=== PATIENT | male | born 1955 | race Caucasian/White ===

== ENCOUNTER 2016-09-09 13:44 | Inpatient (IN) | payer OTHER ==
[~2016-09-09] VITALS: Ht 180.3 cm; Wt 96.3 kg
[~2016-09-09 13:44] MED LIST: AMLO-110 PO; CALC0.5C2 PO; CHOL2000 PO; CYAN100020 PO; FOLI1TAB7 PO; HYDR-4717 PO; SODI650T8 PO
[2016-09-09 13:48] VITALS: Ht 180.3 cm; Wt 96.3 kg
[2016-09-09] MEDS ORDERED: SODIUM CHLORIDE 0.9% 1000ML 1,000 ML IV STA (13:57)
[2016-09-09] MEDS ORDERED: DEXTROSE 50% 50 ML SYR IV STA (13:57)
[2016-09-09] MEDS ORDERED: CALCIUM GLUCONATE 10% 10 ML VIAL IV STA (13:57)
[2016-09-09] MEDS ORDERED: NovoLIN-R INSULIN PER UNIT CHARGE IV STA (13:57)
--- NOTE | 2016-09-09 14:12 | EMERGENCY ROOM VISIT NOTE ---
History Report prepared by Donell: Jeovanny Muro Under the Supervision of: Dr. Mark Forte D.O. First contact with patient: 13:55 Chief Complaint: ABNORMAL LABS Stated Complaint: HIGH POTTASSIUM History of Present Illness The patient is a 61 year old male who presents to the Emergency Room with complaints of a persistent abnormal lab that occurred prior to arrival today. The patient went in for a cardio test at [facility] and had a blood test done. His creatinine was 19 and his potassium was 7, so the patient was told to go to the ED. He states that his creatinine has been running from 13 to 14 recently. He has been avoiding protein. The patient had a bit of nausea and weakness. He did have the stomach flu last week with vomiting and diarrhea. He denies any chest pain, shortness of breath, or urinary symptoms. His medical problems consist of kidney failure and hypertension. The patient is an ex-smoker. He drinks alcohol occasionally. The patient is trying to avoid dialysis for now. Source of History: patient Onset: Prior to arrival today Position: other (global - abnormal labs) Quality: other (creatinine of 19 and potassium of 7) Timing: other (persistent) Associated Symptoms: + nausea, + weakness, No SOB, No chest pain, No urinary symptoms Note: No other associated symptoms. Review of Systems See HPI for pertinent positives & negatives. A total of 10 systems reviewed and were otherwise negative. Past Medical & Surgical Medical Problems: (1) ESRD (end stage renal disease) (2) Hyperkalemia Surgical Problems: (1) [place] teeth extracted Family History Patient reports no known family medical history. Social History Smoking Status: Former Smoker Alcohol Use: occasionally Drug Use: none Housing Status: lives with significant other Current/Historical Medications Scheduled Amlodipine (Norvasc), 5 MG PO AMHS Calcitriol (Rocaltrol), 0.5 MCG PO QAM Cholecalciferol (Vitamin D3), 2,000 INTER.UNIT PO QAM Cyanocobalamin (Vitamin B12), 1 TAB PO QAM Epoetin Carlos Alberto (Procrit), 10,000 UNITS SC WK Folic Acid (Folvite), 1 TAB PO DAILY Hydralazine Hcl (Apresoline), 100 MG PO TID Sodium Bicarbonate (Sodium Bicarbonate), 1,950 MG PO TID Allergies Coded Allergies: No Known Allergies (Unverified , 09/09/16) Physical Exam Vital Signs Date Time Temp Pulse Resp B/P Pulse Ox O2 Delivery O2 Flow Rate FiO2 09/09/16 15:38 92 14 175/86 97 Room Air 09/09/16 15:06 91 17 185/92 97 Room Air 09/09/16 14:30 82 09/09/16 13:48 36.8 84 17 188/87 93 Room Air Physical Exam GENERAL: Patient is awake, alert, and in no acute distress. Patient is resting comfortably and showing no signs of anxiety EYES: The conjunctivae are clear. The pupils are round and reactive. EARS, NOSE, MOUTH AND THROAT: The nose is without any evidence of any deformity. Mucous membranes are moist tongue is midline NECK: The neck is nontender and supple. RESPIRATORY: Lung sounds were diminished at both bases. No tachypnea or respiratory distress noted. CARDIOVASCULAR: Heart sounds were tachycardic but regular. No definite murmur noted to auscultation. GASTROINTESTINAL: The abdomen is soft. Bowel sounds are present in all quadrants. Abdomen is nontender MUSCULOSKELETAL/EXTREMITIES: There is no evidence of gross deformity full range of motion is noted in the hips and shoulders SKIN: Trace pedal edema noted bilaterally. NEUROLOGIC: Patient is awake alert and oriented x3. Medical Decision & Procedures ER Provider Diagnostic Interpretation: X-ray results as stated below per interpretation by me and the radiologist. CHEST ONE VIEW PORTABLE CLINICAL HISTORY: ABDOMINAL PAIN/GI nausea COMPARISON STUDY: 12/27/2015 FINDINGS: The bones soft tissues and hemidiaphragms are normal. The cardiomediastinal silhouette is normal. The lungs are clear. The pulmonary vasculature is normal. IMPRESSION: Negative chest. Electronically signed by: Aj Ojeda M.D. 09/09/2016 2:19 PM Dictated Date/Time: 09/09/2016 2:18 PM Laboratory Results 09/09/16 14:15 Red Blood Count 3.00, Mean Corpuscular Volume 93.0, Mean Corpuscular Hemoglobin 30.0, Mean Corpuscular Hemoglobin Concent 32.3, Mean Platelet Volume 8.9, Neutrophils (%) (Auto) 64.5, Lymphocytes (%) (Auto) 23.6, Monocytes (%) (Auto) 7.3, Eosinophils (%) (Auto) 4.1, Basophils (%) (Auto) 0.2, Neutrophils # (Auto) 4.27, Lymphocytes # (Auto) 1.56, Monocytes # (Auto) 0.48, Eosinophils # (Auto) 0.27, Basophils # (Auto) 0.01 09/09/16 14:15 Test 09/09/16 14:15 White Blood Count 6.61 K/uL (4.8-10.8) Red Blood Count 3.00 M/uL (4.7-6.1) Hemoglobin 9.0 g/dL (14.0-18.0) Hematocrit 27.9 % (42-52) Mean Corpuscular Volume 93.0 fL (80-100) Mean Corpuscular Hemoglobin 30.0 pg (25-34) Mean Corpuscular Hemoglobin Concent 32.3 g/dl (32-36) Platelet Count 238 K/uL (130-400) Mean Platelet Volume 8.9 fL (7.4-10.4) Neutrophils (%) (Auto) 64.5 % Lymphocytes (%) (Auto) 23.6 % Monocytes (%) (Auto) 7.3 % Eosinophils (%) (Auto) 4.1 % Basophils (%) (Auto) 0.2 % Neutrophils # (Auto) 4.27 K/uL (1.4-6.5) Lymphocytes # (Auto) 1.56 K/uL (1.2-3.4) Monocytes # (Auto) 0.48 K/uL (0.11-0.59) Eosinophils # (Auto) 0.27 K/uL (0-0.5) Basophils # (Auto) 0.01 K/uL (0-0.2) RDW Standard Deviation 56.2 fL (36.4-46.3) RDW Coefficient of Variation 16.7 % (11.5-14.5) Immature Granulocyte % (Auto) 0.3 % Immature Granulocyte # (Auto) 0.02 K/uL (0.00-0.02) Prothrombin Time 10.5 SECONDS (9.0-12.0) Prothromb Time International Ratio 1.0 (0.9-1.1) Activated Partial Thromboplast Time 23.7 SECONDS (21.0-31.0) Partial Thromboplastin Ratio 0.9 Anion Gap 14.0 mmol/L (3-11) Est Creatinine Clear Calc Drug Dose 4.6 ml/min Estimated GFR () 2.5 Estimated GFR (Non- 2.2 BUN/Creatinine Ratio 4.3 (10-20) Calcium Level 9.4 mg/dl (8.5-10.1) Phosphorus Level 7.8 mg/dl (2.5-4.9) Magnesium Level 4.5 mg/dl (1.8-2.4) Total Bilirubin 0.4 mg/dl (0.2-1) Direct Bilirubin 0.2 mg/dl (0-0.2) Aspartate Amino Transf (AST/SGOT) 7 U/L (15-37) Alanine Aminotransferase (ALT/SGPT) 16 U/L (12-78) Alkaline Phosphatase 56 U/L (45-117) Total Creatine Kinase 179 U/L (39-308) Creatine Kinase MB 2.7 ng/ml (0.5-3.6) Creatine Kinase MB Ratio 1.5 (0-3.0) Troponin I < 0.015 ng/ml (0-0.045) Pro-B-Type Natriuretic Peptide 5441 pg/ml (0-900) Total Protein 6.8 gm/dl (6.4-8.2) Albumin 3.9 gm/dl (3.4-5.0) Lipase 318 U/L (73-393) Laboratory results per my review. Medications Administered Medications (Trade) Dose Ordered Sig/Aleksandra Route Start Time Stop Time Status Last Admin Dose Admin Sodium Chloride (Nss 1000ml) 1,000 ml @ 999 mls/hr Q1H1M STAT IV 09/09/16 13:57 09/09/16 14:57 DC 09/09/16 14:44 999 MLS/HR Calcium Gluconate (Calcium Gluconate 10%) 1,000 mg NOW STAT IV 09/09/16 13:57 09/09/16 13:59 DC 09/09/16 14:44 1,000 MG Dextrose (Dextrose 50% 50ML Syringe) 50 ml NOW STAT IV 09/09/16 13:57 09/09/16 13:59 DC 09/09/16 14:45 50 ML Insulin Human Regular (novoLIN-R U-100 PER UNIT) 10 units NOW STAT IV 09/09/16 13:57 09/09/16 13:59 DC 09/09/16 14:47 10 UNITS ECG Indication: other (abnormal labs) Rate (beats per minute): 78 Rhythm: normal sinus Findings: peaked T-waves (noted in anterior leads), no ectopy Change: no significant change (compared to April 14 2016) ED Course 1350: The patient was evaluated in room B3B. A complete history and physical examination were performed. 1357: Ordered Novolin-R U-100 PER UNIT 10 units IV, Dextrose 50% 50ML Syringe 50 ml IV, Calcium Gluconate 10% 1000 mg IV, NSS 1000 ml @ 999 mls/hr IV. 1500: I reevaluated the patient and he is resting comfortably. The patient verbally expressed understanding and agreement of the treatment plan. The patient will be evaluated for further treatment. 1510: I discussed the patient with Lazara Joseph - she will evaluate the patient for further treatment. Medical Decision Differential diagnosis: Etiologies such as metabolic, infection, hypo/hyperglycemia, electrolyte abnormalities, cardiac sources, intracerebral event, toxicologic, neurologic, as well as others were entertained. Nursing notes reviewed. The patient's previous electronic medical records reviewed. The patient is a 61-year-old male who has a history of chronic renal insufficiency who is currently trying to be put on a renal transplant list. He was seen by cardiology for medical clearance and had laboratory studies obtained as well as an EKG. EKG did show signs of hyperkalemia and his laboratory studies revealed significant elevation in his creatinine as well as his potassium. The patient had nausea vomiting and diarrhea last week which was felt to be secondary to the stomach flu. He was likely dehydrated at that time which probably set this acute change in his renal function and motion. I discussed the patient's laboratory and radiographic studies with him. He was treated with IV fluids IV calcium IV insulin and IV dextrose. He was reevaluated multiple times. I discussed his case with the on-call [facility] screw. They've agreed to evaluate the patient in the emergency department for further management and disposition. 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 The patient still refuses to have dialysis. It was explained to him that this could be life saving and that his extreme electrolyte shifts could lead to sudden cardiac . The patient is aware of this. He still does not wish to have dialysis. Consults Time Called: 1504 Consulting Physician: Lazara Joseph Returned Call: 1510 I discussed the patient with Lazara Joseph - she will evaluate the patient for further treatment. Impression Primary Impression: Renal failure Additional Impressions: Hyperkalemia, Abnormal EKG Scribe Attestation The scribe's documentation has been prepared under my direction and personally reviewed by me in its entirety. I confirm that the note above accurately reflects all work, treatment, procedures, and medical decision making performed by me. Departure Information Dispostion Being Evaluated By Hospitalist Referrals [place], [place] DO (PCP) Patient Instructions A Signature Page, My [facility]
--- NOTE | 2016-09-09 14:20 | DIAGNOSTIC IMAGING REPORT ---
CHEST ONE VIEW PORTABLE CLINICAL HISTORY: ABDOMINAL PAIN/GI nausea COMPARISON STUDY: 12/27/2015 FINDINGS: The bones soft tissues and hemidiaphragms are normal. The cardiomediastinal silhouette is normal. The lungs are clear. The pulmonary vasculature is normal. IMPRESSION: Negative chest. Electronically signed by: Aj Ojeda M.D. 09/09/2016 2:19 PM Dictated Date/Time: 09/09/2016 2:18 PM
[2016-09-09 14:25] LABS: BASO % 0.2 %; BASO ABS # 0.01 K/uL (0-0.2); COMPLETE YES; EOS % 4.1 %; HEMATOCRIT 27.9 % (42-52); IG% 0.3 %; LYMPH % 23.6 %; LYMPH ABS # 1.56 K/uL (1.2-3.4); MEAN CORPUSCULAR HGB CONC 32.3 g/dl (32-36); MEAN PLATELET VOLUME 8.9 fL (7.4-10.4); MONO % 7.3 %; NEUT % 64.5 %; PLATELET COUNT 238 K/uL (130-400); WHITE BLOOD COUNT 6.61 K/uL (4.8-10.8)
[2016-09-09 14:38] LABS: PARTIAL THROMBOPLASTIN RATIO 0.9; PROTHROMBIN TIME (PATIENT) 10.5 SECONDS (9.0-12.0)
[2016-09-09] MEDS ORDERED: EPGI2M INJ (14:44)
[2016-09-09 15:05] LABS: ALKALINE PHOSPHATASE 56 U/L (45-117); ALT/SGPT 16 U/L (12-78); AST/SGOT 7 U/L (15-37); BLOOD UREA NITROGEN 87 mg/dl (7-18); BUN/CREATININE RATIO 4.3 (10-20); CALCIUM 9.4 mg/dl (8.5-10.1); CARBON DIOXIDE 24 mmol/L (21-32); CHLORIDE 103 mmol/L (98-107); CKMB/CK RATIO 1.5 (0-3.0); GLUCOSE 109 mg/dl (70-99); MAGNESIUM 4.5 mg/dl (1.8-2.4); PHOSPHORUS 7.8 mg/dl (2.5-4.9); SODIUM 141 mmol/L (136-145)
[2016-09-09 15:07] LABS: POTASSIUM 6.1 mmol/L (3.5-5.1)
[2016-09-09] MEDS ORDERED: ONDANSETRON INJ 2 MG/ML 2 ML VIAL IV PRN (16:00)
[2016-09-09] MEDS ORDERED: ACETAMINOPHEN 325 MG TAB PO PRN (16:00)
[2016-09-09] MEDS ORDERED: [UNRECOGNIZED DRUG - CODE] PO (16:05)
[2016-09-09] MEDS ORDERED: CRG3125 PO (16:05)
[2016-09-09] MEDS ORDERED: CALC500C3 PO (16:05)
[2016-09-09] MEDS ORDERED: MAGN1TAB41 PO (16:05)
[2016-09-09] MEDS ORDERED: [UNRECOGNIZED DRUG - CODE] PO (16:05)
[2016-09-09] MEDS ORDERED: SEVE1TAB PO (16:05)
[2016-09-09] MEDS ORDERED: SODIUM POLYST. SULF SUSP 15G/60ML PO ONE (16:15)
--- NOTE | 2016-09-09 16:43 | History and Physical ---
History & Physical Date & Time of Service: Sep 09, 2016 at 16:13 Chief Complaint: High Pottassium Primary Care Physician: No Doctor, Assigned History of Present Illness Source: patient, clinic records, hospital records This is a 61 year old male with CKD stage 5 not on dialysis, anemia of renal failure, HTN, and other problems listed below who was sent to the ED from Dr. Jaime's office for hyperkalemia and worsening creatinine. Pt follows with Dr. Angeles for CKD 5 and has declined starting dialysis so far. Pt was seen today by Dr. Jaime for preop clearance for kidney transplant and was found to have peaked T waves on EKG, then had labs done showing potassium of 7.0 and creatinine 19.5 (up from 12-14). He was sent to ER where EKG also showed peaked T waves. He was treated with calcium gluconate, insulin and dextrose, and 1 liter NSS. Patient states he was ill last week with stomach flu (vomiting and diarrhea) which his also had. GI symptoms resolved but states he does not eat much. He is still producing urine. He c/o insomnia the past 2 nights. He denies weakness, fatigue, cramping, fevers, chills, chest pain, palpitations, SOB, cough, URI symptoms, dysuria, frequency, change in urine color, swelling, weight gain. He has been compliant with diet and meds but due for afternoon hydralazine. 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 Past Medical/Surgical History Medical Problems: (1) Anemia in CKD (chronic kidney disease) Status: Chronic (2) CKD (chronic kidney disease) stage 5, GFR less than 15 ml/min Status: Chronic (3) HTN (hypertension) Status: Chronic Surgical Problems: (1) H/O colonoscopy Status: Chronic (2) History of dental surgery Status: Chronic (3) History of esophagogastroduodenoscopy (EGD) Status: Chronic Family History Diabetes mellitus FATHER FH: CHF (congestive heart failure) FATHER Hypertension FATHER Social History Smoking Status: Former Smoker (quit 2.5 years ago) Alcohol Use: 2 glasses of wine per night Drug Use: none Marital Status: Housing status: lives with significant other Occupational Status: employed (secondary 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) Multi-Drug Resistant Organisms History of MDRO: No Allergies Coded Allergies: No Known Allergies (Unverified , 09/09/16) Home Medications Scheduled Amlodipine (Norvasc), 5 MG PO BID Borage (Borago Officinalis) (Borage 1000), 1,000 MG PO DAILY Calcitriol (Rocaltrol), 0.5 MCG PO QAM Calcium Carbonate (Tums), 1,000 MG PO HS Carvedilol (Carvedilol), 1 TAB PO BIDM Cholecalciferol (Vitamin D3), 2,000 INTER.UNIT PO QAM Cyanocobalamin (Vitamin B12), 250 MCG PO QAM Epoetin Carlos Alberto (Procrit), 10,000 UNITS SC WK Eszopiclone (Lunesta), 1 MG PO HS Folic Acid (Folvite), 1 TAB PO DAILY Hydralazine Hcl (Apresoline), 100 MG PO TID Polysaccharide Iron Complex (Ferric X-150), 150 MG PO BID Sevelamer Hydroch (Renagel), 2,400 MG PO TIDM Sodium Bicarbonate (Sodium Bicarbonate), 1,950 MG PO TID Sodium Polystyrene Sulfonate (Kayexalate Susp-Substitute), 15 GM PO DAILY Review of Systems Constitutional: No chills, No fatigue, No fever, No weakness Eyes: No worsening of vision ENT: No nasal symptoms Respiratory: No cough, No shortness of breath Cardiovascular: No chest pain, No edema, No palpitations Abdomen: + diarrhea (resolved), + nausea (resolved), + problem reported, + vomiting (resolved), No GI bleeding Genitourinary - Male: + problem reported (producing urine normally ), No dysuria, No hematuria Psychiatric: + insomnia, No anxiety Hematologic / Lymphatic: No abnormal bleeding/bruising Physical Exam Vital Signs Date Time Temp Pulse Resp B/P Pulse Ox O2 Delivery O2 Flow Rate FiO2 09/09/16 15:38 92 14 175/86 97 Room Air 09/09/16 15:06 91 17 185/92 97 Room Air 09/09/16 14:30 82 09/09/16 13:48 36.8 84 17 188/87 93 Room Air General Appearance: WD/WN, no apparent distress, + pertinent finding (alert cooperative 61 year old male, at bedside) Head: normocephalic, atraumatic Eyes: normal inspection, PERRL, EOMI, sclerae normal ENT: normal ENT inspection, hearing grossly normal, pharynx normal Neck: supple, trachea midline Respiratory/Chest: lungs clear, normal breath sounds, no respiratory distress, no accessory muscle use Cardiovascular: regular rate, rhythm, no murmur Abdomen/GI: normal bowel sounds, non tender, soft Extremities/Musculoskelatal: normal inspection, no calf tenderness, no pedal edema Neurologic/Psych: alert, normal mood/affect, oriented x 3 Skin: normal color, warm/dry Diagnostics Laboratory Results Results Past 24 Hours Test 09/09/16 14:15 Range/Units White Blood Count 6.61 4.8-10.8 K/uL Red Blood Count 3.00 4.7-6.1 M/uL Hemoglobin 9.0 14.0-18.0 g/dL Hematocrit 27.9 42-52 % Mean Corpuscular Volume 93.0 80-100 fL Mean Corpuscular Hemoglobin 30.0 25-34 pg Mean Corpuscular Hemoglobin Concent 32.3 32-36 g/dl Platelet Count 238 130-400 K/uL Mean Platelet Volume 8.9 7.4-10.4 fL Neutrophils (%) (Auto) 64.5 % Lymphocytes (%) (Auto) 23.6 % Monocytes (%) (Auto) 7.3 % Eosinophils (%) (Auto) 4.1 % Basophils (%) (Auto) 0.2 % Neutrophils # (Auto) 4.27 1.4-6.5 K/uL Lymphocytes # (Auto) 1.56 1.2-3.4 K/uL Monocytes # (Auto) 0.48 0.11-0.59 K/uL Eosinophils # (Auto) 0.27 0-0.5 K/uL Basophils # (Auto) 0.01 0-0.2 K/uL RDW Standard Deviation 56.2 36.4-46.3 fL RDW Coefficient of Variation 16.7 11.5-14.5 % Immature Granulocyte % (Auto) 0.3 % Immature Granulocyte # (Auto) 0.02 0.00-0.02 K/uL Prothrombin Time 10.5 9.0-12.0 SECONDS Prothromb Time International Ratio 1.0 0.9-1.1 Activated Partial Thromboplast Time 23.7 21.0-31.0 SECONDS Partial Thromboplastin Ratio 0.9 Sodium Level 141 136-145 mmol/L Potassium Level 6.1 3.5-5.1 mmol/L Chloride Level 103 98-107 mmol/L Carbon Dioxide Level 24 21-32 mmol/L Anion Gap 14.0 3-11 mmol/L Blood Urea Nitrogen 87 7-18 mg/dl Creatinine 20.00 0.60-1.40 mg/dl Est Creatinine Clear Calc Drug Dose 4.6 ml/min Estimated GFR () 2.5 Estimated GFR (Non- 2.2 BUN/Creatinine Ratio 4.3 10-20 Random Glucose 109 70-99 mg/dl Calcium Level 9.4 8.5-10.1 mg/dl Phosphorus Level 7.8 2.5-4.9 mg/dl Magnesium Level 4.5 1.8-2.4 mg/dl Total Bilirubin 0.4 0.2-1 mg/dl Direct Bilirubin 0.2 0-0.2 mg/dl Aspartate Amino Transf (AST/SGOT) 7 15-37 U/L Alanine Aminotransferase (ALT/SGPT) 16 12-78 U/L Alkaline Phosphatase 56 45-117 U/L Total Creatine Kinase 179 39-308 U/L Creatine Kinase MB 2.7 0.5-3.6 ng/ml Creatine Kinase MB Ratio 1.5 0-3.0 Troponin I < 0.015 0-0.045 ng/ml Pro-B-Type Natriuretic Peptide 5441 0-900 pg/ml Total Protein 6.8 6.4-8.2 gm/dl Albumin 3.9 3.4-5.0 gm/dl Lipase 318 73-393 U/L Diagnostic Radiology CHEST ONE VIEW PORTABLE CLINICAL HISTORY: ABDOMINAL PAIN/GI nausea COMPARISON STUDY: 12/27/2015 FINDINGS: The bones soft tissues and hemidiaphragms are normal. The cardiomediastinal silhouette is normal. The lungs are clear. The pulmonary vasculature is normal. IMPRESSION: Negative chest. EKG NSR< 78 bpm, peaked T waves, no ectopy Impression Assessment and Plan HYPERKALEMIA Admit to telemetry K ws 7.0 as outpatient today -> 6.1 in ER Has peaked T waves on EKG Treated with calcium gluconate and insulin with dextrose Will give Kayexalate 15 gm PO now Recheck PRP, mag, phos q4h Nephrology consulted; discussed w/ Dr. Angeles; appreciate input CKD STAGE 5 With worsening renal function- Cr 20; was previously 12-14 Volume loss from recent gastroenteritis may have contributed- received 1 liter bolus in ER Still producing urine Patient continues to decline dialysis Nephrology on board HYPERTENSION BP elevated in ER Give home dose of hydralazine (was due for it at 3 pm) Continue amlodipine, carvedilol, hydralazine Monitor BP ANEMIA OF CHRONIC RENAL DISEASE Hg is stable at 9.0 (baseline 7-8) Receives Procrit as outpatient Monitor H/H DVT PROPHYLAXIS SCD's DISPOSITION Admitting to telemetry Patient seen in collaboration with Dr. Tamez. Please see his addendum. VTE Prophylaxis VTE Risk Assessment Done? Y/N: Yes Risk Level: Moderate
--- NOTE | 2016-09-09 17:29 | NEPHROLOGY CONSULTATION ---
DATE OF CONSULTATION: 09/09/2016 [facility]END[facility] OF RECORD: [facility]. REASON FOR CONSULTATION: CKD stage V, elevated potassium. HISTORY OF PRESENT ILLNESS: This is a 61-year-old male with CKD stage V with a GFR in the 3-4 range, who does not want to start dialysis at this time. The patient is interested in peritoneal dialysis when he is agreeable to start dialysis. The patient states that he was feeling well and wants to keep his job and that he is scared of losing his job if he starts dialysis and it is hard for a man of his age to get a job. 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 He states that he was having URI symptoms with nausea, vomiting and diarrhea last week with decreased appetite and he went to be evaluated for transplant cardiac clearance and found to have peaked T waves with potassium level of 7, was instructed to go to the emergency room. In the ER, patient's potassium level was elevated in the 6 range. The patient still chooses not to do dialysis at this time. The patient has been on Procrit and hemoglobin levels are trending up and he has been getting injections. The patient's main concerns are when he starts dialysis, losing his job and being able to afford his medical expenses on Medicare insurance alone without a job to pay for his expenses. PAST MEDICAL HISTORY: Skin cancer, hypertension, CKD stage V, inguinal hernia. PAST SURGICAL HISTORY: The patient denies. SOCIAL HISTORY: The patient is . Quit smoking in 2013. Occasional alcohol. No drugs. Lives at home with . FAMILY HISTORY: Significant for father with diabetes and hypertension. REVIEW OF SYSTEMS: Positive fatigue. No more nausea or vomiting. Appetite temporarily worse with a virus, but is getting better. No diarrhea or constipation. No chest pain or shortness of breath. No headaches or blurry vision. No dysphagia. Does have significant pruritus. all other review of systems otherwise negative. CURRENT MEDICATIONS: Calcitriol 0.5 mcg daily, vitamin D 2000 units a day. Vitamin B12 250 mcg a day, folic acid 1 tab daily, magnesium 400 mg daily, Norvasc 5 mg p.o. b.i.d., Tums 1 gram at night, hydralazine 100 mg p.o. t.i.d., sodium bicarbonate 1950 mg p.o. t.i.d., Coreg 3.125 mg p.o. b.i.d., Renagel 2400 mg p.o. t.i.d. with meals, Kayexalate 15 grams x1, did get insulin D50 and calcium gluconate as well as 1 liter fluid bolus. PHYSICAL EXAMINATION: VITAL SIGNS: Temperature 36.8, pulse 92, respiratory rate 14, blood pressure 175/86, satting 97% on room air. GENERAL: Awake, alert, oriented x3. EYES: No scleral icterus. ENT: Moist mucous membranes. NECK: Supple. PULMONARY: Decreased breath sounds at the bases. CARDIAC: Regular rate and rhythm. ABDOMEN: Bowel sounds positive, soft, nontender. EXTREMITIES: +1 edema. NEUROLOGICALLY: Nonfocal. DERM: No rash or ulcers noted. LABORATORY DATA: White count 6, H\T\H 9 and 27.9, platelet count is 238. Sodium level is 141, potassium is 6.1, chloride is 103, bicarb is 24, BUN is 87, creatinine is 20, glucose is 109, calcium is 9.4, phosphorus 7.8, magnesium level is 4.5. AST 7, ALT 16. Troponins negative. ProBNP 5441, albumin is 3.9, lipase is 318. INR is 1. Chest x-ray shows normal chest. IMPRESSION: 1. Chronic kidney disease stage V. I spoke to patient multiple times as an outpatient as well as again today in the Emergency Room about indications to start dialysis and I feel that it is appropriate to start dialysis at this time to help improve the potassium, help improve his itching and control his phosphorus, help clear his uremic toxins. The patient states he is not ready to do this at this time and is interested in peritoneal dialysis when he does get symptomatic. Appears to have good insight into his medical decision making, but once again I am concerned that he may never make it to dialysis and will possibly at home in his sleep secondary to electrolyte abnormalities. 2. Anemia of renal failure. The patient is on Procrit as an outpatient and will continue to take injections as an outpatient. 3. Hyperkalemia. Unable to do dialysis to help remove the potassium. Currently giving calcium, insulin and D50. Also giving Kayexalate and hopefully potassium levels improve by the morning. 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 4. Hypermagnesemia. Magnesium level is 4.5 and we will stop patient's magnesium supplementation. 5. Renal osteodystrophy. We will continue patient's calcitriol and phosphate binders. 6. Pruritus. Unfortunately, trying to control his phosphorus is difficult without dialysis and I feel the best way to control his itching is through the use of phosphate binders and dialysis. I appreciate consultation. GENET
[2016-09-09] MEDS ORDERED: SEVELAMER HYDROCH 800 MG TAB PO SCH (18:00)
[2016-09-09] MEDS ORDERED: CARVEDILOL 3.125 MG TAB PO SCH (18:00)
[2016-09-09] MEDS ORDERED: CLONIDINE HCL 0.1 MG TAB PO PRN (18:30)
[2016-09-09 18:38] VITALS: TEMP 36.8; O2SAT 99
[2016-09-09 18:46] LABS: CALCIUM 9.2 mg/dl (8.5-10.1); MAGNESIUM 4.4 mg/dl (1.8-2.4); PHOSPHORUS 7.2 mg/dl (2.5-4.9); POTASSIUM 5.9 mmol/L (3.5-5.1)
[2016-09-09] MEDS ORDERED: SODIUM POLYST. SULF SUSP 15G/60ML PO STA (20:13)
[2016-09-09] MEDS ORDERED: DEXTROSE 50% 50 ML SYR IV ONE (20:15)
[2016-09-09] MEDS ORDERED: INSULIN HUMAN REGULAR IV ONE (20:15)
--- NOTE | 2016-09-09 20:27 | Progress Note ---
Progress Note attending addendum patient seen and examined at bedside strongly requests to go home as soon as possible, tonight if possible denies any symptoms discussed at length with patient the importance to lower his potassium, he verbalized understanding VS noted and reviewed repeat K 5.[address] Angeles next K draw at 12MN, if <6, patient may be discharged on Kayexalate 15mg daily, low potassium diet and repeat PRP on Tuesday discussed again with patient, he is comfortable with plan of care Darrel Tamez MD
[2016-09-09] MEDS ORDERED: INSULIN HUMAN REGULAR PER UNIT 10 UNITS in SYRINGE 9.9 ML IV SCH (20:30)
[2016-09-09] MEDS ORDERED: DEXTROSE 50% 50 ML SYR IV SCH (20:30)
[2016-09-09] MEDS ORDERED: AMLODIPINE BESYLATE 5 MG TAB PO SCH (21:00)
[2016-09-09] MEDS ORDERED: SODIUM BICARBONATE 650 MG TAB PO SCH (21:00)
[2016-09-09] MEDS ORDERED: CALCIUM CARBONATE 500 MG CHEWABLE PO SCH (21:00)
[2016-09-09] MEDS ORDERED: IRON COMPLEX POLYSACCHARIDE W/VIT C 150 MG CAP PO SCH (21:00)
[2016-09-09 22:00] VITALS: BP 163/78; PULSE 91
[2016-09-09 23:31] VITALS: PULSE 90
[2016-09-10 00:43] LABS: BUN/CREATININE RATIO 4.7 (10-20); CALCIUM 8.9 mg/dl (8.5-10.1); MAGNESIUM 4.4 mg/dl (1.8-2.4); PHOSPHORUS 7.4 mg/dl (2.5-4.9); POTASSIUM 5.4 mmol/L (3.5-5.1)
[2016-09-10 01:00] VITALS: BP 194/93
--- NOTE | 2016-09-10 01:19 | Progress Note ---
Subjective Date of Service: Sep 10, 2016. Subjective Pt evaluation today including: conversation w/ patient, conversation w/ family , physical exam, lab review, review of studies, conversation w/ sap ppm consultant, review of inpatient medication list Saw/examined the patient in room C1 in the ER - he is doing well, very eager to get out of the hospital; denies any significant symptoms; states his blood pressure is running high because he is frustrated about being in the hospital. Problem List Medical Problems: (1) Abnormal EKG Status: Acute (2) Anemia Status: Acute (3) ARF (acute renal failure) Status: Acute (4) Pancreatitis Status: Acute (5) Renal failure Status: Acute (6) Renal failure Status: Acute (7) Upper GI bleed Status: Acute Review of Systems Constitutional: No chills, No fever Respiratory: No cough, No shortness of breath, No sputum Cardiac: No chest pain Abdomen: No constipation, No diarrhea, No nausea, No pain, No vomiting Male : No dysuria, No urinary frequency Heme: No abnormal bleeding/bruising Medications Current Inpatient Medications Medications (Trade) Dose Ordered Sig/Aleksandra Route Start Time Stop Time Status Last Admin Dose Admin Acetaminophen (Tylenol Tab) 650 mg Q4H PRN PO 09/09/16 16:00 10/09/16 15:59 Ondansetron HCl (Zofran Inj) 4 mg Q6H PRN IV 09/09/16 16:00 10/09/16 15:59 Amlodipine Besylate (Norvasc Tab) 5 mg BID PO 09/09/16 21:00 10/09/16 20:59 09/09/16 20:49 5 MG Calcium Carbonate (Tums Chew Tab) 1,000 mg HS PO 09/09/16 21:00 10/09/16 20:59 09/09/16 20:11 1,000 MG Carvedilol (Coreg Tab) 3.125 mg BIDM PO 09/09/16 18:00 10/09/16 17:59 09/09/16 20:10 3.125 MG Hydralazine HCl (Apresoline Tab) 100 mg TID PO 09/09/16 21:00 10/09/16 20:59 09/09/16 20:10 100 MG Sevelamer HCl (Renagel Tab) 2,400 mg TIDM PO 09/09/16 18:00 10/09/16 17:59 09/09/16 20:09 2,400 MG Sodium Bicarbonate (Sodium Bicarbonate Tab) 1,950 mg TID PO 09/09/16 21:00 10/09/16 20:59 09/09/16 20:50 1,950 MG Calcitriol (Rocaltrol Cap) 0.5 mcg QAM PO 09/10/16 09:00 10/10/16 08:59 Cholecalciferol (Vitamin D Tab) 2,000 inter.unit QAM PO 09/10/16 09:00 10/10/16 08:59 Cyanocobalamin (Vitamin B-12 Tab) 250 mcg QAM PO 09/10/16 09:00 10/10/16 08:59 Folic Acid (Folvite Tab) 1 mg DAILY PO 09/10/16 09:00 10/10/16 08:59 09/09/16 20:11 1 MG Polysaccharide Iron Complex (Niferex-150 W/ Vit C Cap) 150 mg BID PO 09/09/16 21:00 10/09/16 20:59 09/09/16 20:11 150 MG Clonidine HCl (Catapres Tab) 0.1 mg Q6 PRN PO 09/09/16 18:30 10/09/16 18:29 09/10/16 00:54 0.1 MG Objective Vital Signs Date Time Temp Pulse Resp B/P Pulse Ox O2 Delivery O2 Flow Rate FiO2 09/10/16 01:00 194/93 09/09/16 23:31 90 09/09/16 22:00 91 20 163/78 09/09/16 20:33 91 09/09/16 18:38 36.8 91 17 181/68 99 09/09/16 18:24 17 181/68 99 Room Air 09/09/16 17:41 91 17 166/74 97 Room Air 09/09/16 16:29 85 12 97 09/09/16 16:28 200/88 09/09/16 16:24 85 13 98 09/09/16 16:19 88 17 97 09/09/16 16:14 88 19 94 09/09/16 16:09 88 16 98 09/09/16 16:04 86 17 96 09/09/16 15:59 87 19 94 09/09/16 15:58 177/96 09/09/16 15:54 89 20 97 09/09/16 15:49 85 12 96 09/09/16 15:44 86 17 97 09/09/16 15:39 87 15 09/09/16 15:38 92 14 175/86 97 Room Air 09/09/16 15:34 93 19 09/09/16 15:29 92 14 175/86 09/09/16 15:24 88 18 09/09/16 15:19 87 16 09/09/16 15:14 86 10 93 09/09/16 15:09 85 5 93 09/09/16 15:06 91 17 185/92 97 Room Air 09/09/16 15:04 84 15 94 09/09/16 15:02 185/92 09/09/16 14:59 77 15 09/09/16 14:54 81 14 09/09/16 14:49 81 20 09/09/16 14:44 78 6 09/09/16 14:39 79 13 09/09/16 14:34 83 20 09/09/16 14:30 82 09/09/16 14:29 80 7 09/09/16 13:48 36.8 84 17 188/87 93 Room Air Physical Exam General Appearance: no apparent distress Eyes: normal inspection ENT: hearing grossly normal Respiratory/Chest: lungs clear, normal breath sounds, no respiratory distress, no accessory muscle use Cardiovascular: regular rate, rhythm, no edema, no murmur Abdomen: normal bowel sounds, non tender, soft Extremities: normal inspection, no pedal edema Neurologic/Psychiatric: no motor/sensory deficits, alert, normal mood/affect Skin: normal color Lymphatic: no adenopathy Laboratory Results Last 24 Hours Test 09/09/16 14:15 09/09/16 17:49 09/09/16 20:56 09/09/16 23:58 White Blood Count 6.61 K/uL Red Blood Count 3.00 M/uL Hemoglobin 9.0 g/dL Hematocrit 27.9 % Mean Corpuscular Volume 93.0 fL Mean Corpuscular Hemoglobin 30.0 pg Mean Corpuscular Hemoglobin Concent 32.3 g/dl Platelet Count 238 K/uL Mean Platelet Volume 8.9 fL Neutrophils (%) (Auto) 64.5 % Lymphocytes (%) (Auto) 23.6 % Monocytes (%) (Auto) 7.3 % Eosinophils (%) (Auto) 4.1 % Basophils (%) (Auto) 0.2 % Neutrophils # (Auto) 4.27 K/uL Lymphocytes # (Auto) 1.56 K/uL Monocytes # (Auto) 0.48 K/uL Eosinophils # (Auto) 0.27 K/uL Basophils # (Auto) 0.01 K/uL RDW Standard Deviation 56.2 fL RDW Coefficient of Variation 16.7 % Immature Granulocyte % (Auto) 0.3 % Immature Granulocyte # (Auto) 0.02 K/uL Prothrombin Time 10.5 SECONDS Prothromb Time International Ratio 1.0 Activated Partial Thromboplast Time 23.7 SECONDS Partial Thromboplastin Ratio 0.9 Sodium Level 141 mmol/L 143 mmol/L 142 mmol/L Potassium Level 6.1 mmol/L 5.9 mmol/L 5.4 mmol/L Chloride Level 103 mmol/L 103 mmol/L 103 mmol/L Carbon Dioxide Level 24 mmol/L 21 mmol/L 24 mmol/L Anion Gap 14.0 mmol/L 19.0 mmol/L 15.0 mmol/L Blood Urea Nitrogen 87 mg/dl 100 mg/dl 94 mg/dl Creatinine 20.00 mg/dl 20.00 mg/dl 20.00 mg/dl Est Creatinine Clear Calc Drug Dose 4.6 ml/min 4.6 ml/min 4.6 ml/min Estimated GFR () 2.5 2.5 2.5 Estimated GFR (Non- 2.2 2.2 2.2 BUN/Creatinine Ratio 4.3 5.0 4.7 Random Glucose 109 mg/dl 71 mg/dl 111 mg/dl Calcium Level 9.4 mg/dl 9.2 mg/dl 8.9 mg/dl Phosphorus Level 7.8 mg/dl 7.2 mg/dl 7.4 mg/dl Magnesium Level 4.5 mg/dl 4.4 mg/dl 4.4 mg/dl Total Bilirubin 0.4 mg/dl Direct Bilirubin 0.2 mg/dl Aspartate Amino Transf (AST/SGOT) 7 U/L Alanine Aminotransferase (ALT/SGPT) 16 U/L Alkaline Phosphatase 56 U/L Total Creatine Kinase 179 U/L Creatine Kinase MB 2.7 ng/ml Creatine Kinase MB Ratio 1.5 Troponin I < 0.015 ng/ml Pro-B-Type Natriuretic Peptide 5441 pg/ml Total Protein 6.8 gm/dl Albumin 3.9 gm/dl Lipase 318 U/L Bedside Glucose 110 mg/dl Assessment and Plan This is a 61 year old male with CKD stage 5 not on dialysis, anemia of renal failure, HTN here secondary to electrolyte abnormalities Hyperkalemia Hypermagnesemia -->patient presented after being sent over by cardiology due to peaked T waves -->potassium was > 6.0 -->Kayexalate, insulin/D5 given x 2 - potassium is now 5.4 -->Magnesium remains > 4 - patient states he was taking magnesium due to insomnia -->explained to the patient the risks of being discharged with elevated magnesium and potassium levels -->he realizes the risks, and is willing to follow closely with doctors as an outpatient -->insistent on going home today - will d/c with Kayexalate 15 mg daily, repeat blood work on 09/13/16 Hypertension -->difficult to control blood pressure -->blood pressures (SBP) ranging from 160s-190s -->patient should continue home medications, check BP twice daily and take hydralazine PRN for SBPs > 180 -->follow-up with Dr. Angeles as outpatient
[2016-09-10] MEDS ORDERED: ESZO1TAB6 PO ×2 (01:26→01:37)
[2016-09-10] MEDS ORDERED: [UNRECOGNIZED DRUG - CODE] PO (01:26)
--- NOTE | 2016-09-10 01:31 | Discharge Instructions ---
Discharge Instructions Admission Reason for Admission: Hyperkalemia Discharge Discharge Diagnosis / Problem: Hyperkalemia/Hypermagnesemia Discharge Goals Goal(s): Diagnostic testing, Therapeutic intervention Activity Recommendations Activity Limitations: resume your previous activity . Instructions / Follow-Up Instructions / Follow-Up Please follow-up with Dr. Angeles, nephrology regarding electrolyte (potassium/ magnesium) abnormalities * Please have blood work drawn on Tuesday, September 13 to recheck potassium/ magnesium levels * Please take Kayexalate daily until recheck of blood work * Stop taking magnesium supplementation Current Hospital Diet Patient's current hospital diet: Renal Diet Discharge Diet Recommended Diet: Low Potassium Diet (2g K) Pending Studies Studies pending at discharge: no Medical Emergencies . Who to Call and When: Medical Emergencies: If at any time you feel your situation is an emergency, please call 911 immediately. . Non-Emergent Contact Non-Emergency issues call your: Primary Care Provider, Surgical Instrument Mechanic . . "Provider Documentation" section prepared by Sp Carney. VTE Core Measure Inpt VTE Proph given/why not?: SCD's
--- NOTE | 2016-09-10 01:38 | Discharge Summary ---
Discharge Summary Admission Date: Sep 09, 2016 at 15:53 Discharge Date: Sep 10, 2016 Discharge Disposition: Home Principal Diagnosis: CKD stage V Hyperkalemia/Hypermagnesemia Medication Reconciliation New Medications: Eszopiclone (Lunesta) 1 Mg Tab 1 MG PO HS for 10 Days, #10 TAB Sodium Polystyrene Sulfonate (Kayexalate Susp-Substitute) 15 Gm/60 Ml Susp 15 GM PO DAILY for 10 Days, #600 ML Continued Medications: Amlodipine (Norvasc) 5 Mg Tab 5 MG PO BID, TAB Borage (Borago Officinalis) (Borage 1000) 1,000 Mg Cap 1000 MG PO DAILY Calcitriol (Rocaltrol) 0.5 Mcg Cap 0.5 MCG PO QAM Calcium Carbonate (Tums) 500 Mg Chew 1000 MG PO HS Carvedilol (Carvedilol) 3.125 Mg Tab 1 TAB PO BIDM Cholecalciferol (Vitamin D3) 2,000 Unit Cap 2000 INTER.UNIT PO QAM, CAP Cyanocobalamin (Vitamin B12) 1,000 Mcg Tab 250 MCG PO QAM Epoetin Carlos Alberto (Procrit) 2,000 Units Inj 10352 UNITS SC WK Folic Acid (Folvite) Unknown Strength Tab 1 TAB PO DAILY, TAB Hydralazine Hcl (Apresoline) 50 Mg Tab 100 MG PO TID, TAB Polysaccharide Iron Complex (Ferric X-150) 150 Mg Cap 150 MG PO BID Sevelamer Hydroch (Renagel) 800 Mg Tab 2400 MG PO TIDM, TAB Sodium Bicarbonate (Sodium Bicarbonate) 650 Mg Tab 1950 MG PO TID Discontinued Medications: Magnesium Oxide (Magnesium) 400 Mg Tab 400 MG PO DAILY Admission Information HPI (per Admitting provider): This is a 61 year old male with CKD stage 5 not on dialysis, anemia of renal failure, HTN, and other problems listed below who was sent to the ED from Dr. Jaime's office for hyperkalemia and worsening creatinine. Pt follows with Dr. Angeles for CKD 5 and has declined starting dialysis so far. Pt was seen today by Dr. Jaime for preop clearance for kidney transplant and was found to have peaked T waves on EKG, then had labs done showing potassium of 7.0 and creatinine 19.5 (up from 12-14). He was sent to ER where EKG also showed peaked T waves. He was treated with calcium gluconate, insulin and dextrose, and 1 liter NSS. Patient states he was ill last week with stomach flu (vomiting and diarrhea) which his also had. GI symptoms resolved but states he does not eat much. He is still producing urine. He c/o insomnia the past 2 nights. He denies weakness, fatigue, cramping, fevers, chills, chest pain, palpitations, SOB, cough, URI symptoms, dysuria, frequency, change in urine color, swelling, weight gain. He has been compliant with diet and meds but due for afternoon hydralazine. 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 Physical Exam (per Admitting): General Appearance: WD/WN, no apparent distress, + pertinent finding (alert cooperative 61 year old male, at bedside) Head: normocephalic, atraumatic Eyes: normal inspection, PERRL, EOMI, sclerae normal ENT: normal ENT inspection, hearing grossly normal, pharynx normal Neck: supple, trachea midline Respiratory/Chest: lungs clear, normal breath sounds, no respiratory distress, no accessory muscle use Cardiovascular: regular rate, rhythm, no murmur Abdomen/GI: normal bowel sounds, non tender, soft Extremities/Musculoskelatal: normal inspection, no calf tenderness, no pedal edema Neurologic/Psych: alert, normal mood/affect, oriented x 3 Skin: normal color, warm/dry Hospital Course This is a 61 year old male with CKD stage 5 not on dialysis, anemia of renal failure, HTN here secondary to electrolyte abnormalities Hyperkalemia Hypermagnesemia -->patient presented after being sent over by cardiology due to peaked T waves -->potassium was > 6.0 -->Kayexalate, insulin/D5 given x 2 - potassium is now 5.4 -->Magnesium remains > 4 - patient states he was taking magnesium due to insomnia -->explained to the patient the risks of being discharged with elevated magnesium and potassium levels -->he realizes the risks, and is willing to follow closely with doctors as an outpatient -->insistent on going home today - will d/c with Kayexalate 15 mg daily, repeat blood work on 09/13/16 Hypertension -->difficult to control blood pressure -->blood pressures (SBP) ranging from 160s-190s -->patient should continue home medications, check BP twice daily and take hydralazine PRN for SBPs > 180 -->follow-up with Dr. Angeles as outpatient Total time spent on discharge = 45 minutes This includes examination of the patient, discharge planning, medication reconciliation, and communication with other providers. Discharge Instructions Please follow-up with Dr. Angeles, nephrology regarding electrolyte (potassium/ magnesium) abnormalities * Please have blood work drawn on September 13 to recheck potassium/ magnesium levels * Please take Kayexalate daily until recheck of blood work * Stop taking magnesium supplementation
[2016-09-10] MEDS ORDERED: ESZOPICLONE 1 MG TAB PO PRN (01:45)
[2016-09-10] MEDS ORDERED: CALCITRIOL 0.25 MCG CAP PO SCH (09:00)
[2016-09-10] MEDS ORDERED: CYANOCOBALAMIN 500 MCG TAB (VIT B-12) PO SCH (09:00)
[2016-09-10] MEDS ORDERED: CHOLECALCIFEROL 1000 INTER.UNIT TAB PO SCH (09:00)
[2016-09-10] MEDS ORDERED: NON-FORMULARY MEDICATION (Magnesium Oxide (Magnesium) 400 MG) PO SCH (09:00)
[2016-10-15] MEDS ORDERED: CRG125 PO (17:27)
[2016-10-20] MEDS ORDERED: CARV12.52 PO (09:06)
[2016-10-20] MEDS ORDERED: ESZO1TAB6 PO (09:06)
[2016-10-28] MEDS ORDERED: OXYC-57 PO (14:06)
[2016-11-20] MEDS ORDERED: CRD200 PO (13:23)
[2016-11-20] MEDS ORDERED: CMD5 PO (13:25)
[2016-12-09] MEDS ORDERED: LEVO-17 PO (06:57)
[2016-12-18] MEDS ORDERED: PRLSR20 PO (13:16)
[2016-12-18] MEDS ORDERED: ASPI81CH2 PO (13:16)
[2017-04-28] MEDS ORDERED: CALC500C3 PO ×2 (13:31)
[2017-04-28] MEDS ORDERED: BND25 PO (13:33)
[2017-04-28] MEDS ORDERED: CINA0.42 PO (13:34)
[2017-06-02] MEDS ORDERED: AMIO200T4 PO (11:36)
[2017-06-02] MEDS ORDERED: VELPHORO PO ×2 (11:36)
[2017-06-02] MEDS ORDERED: B-CO1CAP17 PO (11:36)
[2017-06-02] MEDS ORDERED: CARV12.5 PO (11:36)
[2017-06-02] MEDS ORDERED: SUCR5CHW PO ×2 (11:36)
[2017-06-02] MEDS ORDERED: MAGNESIUM PO (11:36)
[2017-06-02] MEDS ORDERED: FURO80TA63 PO (11:36)
[2017-06-02] MEDS ORDERED: ALLO100T PO (11:36)
[2017-06-02] MEDS ORDERED: HYDR100T12 PO (11:36)
[2017-06-02] MEDS ORDERED: PRED10TA PO (11:37)
== END 2016-09-10 02:00 | disposition home or self-care (01) | DRG 683 ==
LOC: C.EDB 13:47 → C.EDINP 15:53 → EDBEDREQ 16:15 → C.EDINP 18:35
PROVIDERS: ADMIT Internal Medicine; ATTEND Internal Medicine
DX: I12.0 Hypertensive chronic kidney disease with stage 5 chronic kidney disease or end stage renal disease (principal); N18.5 Chronic kidney disease, stage 5; E87.5 Hyperkalemia; E83.41 Hypermagnesemia; R94.31 Abnormal electrocardiogram [ECG] [EKG]; E86.1 Hypovolemia; D63.1 Anemia in chronic kidney disease; N25.0 Renal osteodystrophy; L29.9 Pruritus, unspecified; G47.00 Insomnia, unspecified; Z76.82 Awaiting organ transplant status; Z87.891 Personal history of nicotine dependence; Z79.899 Other long term (current) drug therapy

== ENCOUNTER 2016-10-14 11:49 | Inpatient (IN) | payer OTHER ==
[2016-10-14] VITALS (20 sets, daily range): BP systolic 168–210; BP diastolic 76–106; PULSE 75–88; TEMP 36.5–37.4; O2SAT 93–97; Ht 175.3 cm; Wt 91.8 kg
[~2016-10-14] VITALS: Ht 175.3 cm; Wt 91.8 kg
[~2016-10-14 11:49] MED LIST changes: -ALLO100T PO; -AMIO200T4 PO; -ASPI81CH2 PO; -B-CO1CAP17 PO; -BND25 PO; -CALC667C4 PO; -CARV12.5 PO; -CARV12.52 PO; +CEFAZOLIN 1000MG/55 ML D5W IV SCH; +CEFAZOLIN 2000 MG/60 ML D5W IV SCH; -CINA0.42 PO; -CMD5 PO; -CRD200 PO; -CRG125 PO; +D5W AND 1/4NSS 1,000 ML IV SCH; -FURO80TA63 PO; -HYDR100T12 PO; -LEVO-17 PO; -MAGNESIUM PO; -MOME6000 NAE; -NURSING VERBAL MED ORDER ONE; -OXYC-57 PO; -PATI1POW PO; -PRED10TA PO; -PRLSR20 PO; -SEVE800T7 PO; -SUCR5CHW PO; -VELPHORO PO; -VNTHFA/IN INH
--- NOTE | 2016-10-14 12:04 | Procedure Note ---
Pre-Mod Sedation Assessment General Date of Moderate Sedation: Oct 14, 2016. Pre-Sedation Airway Assessment Smoking Status: Former Smoker Mallampati Classification: Class I ASA Classification: Class II Notes The planned sedation has been discussed with the patient and consent obtained. I have identified the patient, determined the appropriateness of sedation and have assessed the patient immediately prior to the procedure. All medicine(s) and interventions are by my order.
--- NOTE | 2016-10-14 12:04 | History and Physical ---
History & Physical Date Oct 14, 2016. Chief Complaint End stage renal disease History of Present Illness The patient is a 61 year old male with end stage renal disease now requiring dialysis. He is here for permcath placement. He has a history of hypertension. Allergies Coded Allergies: No Known Allergies (Unverified , 09/09/16) Home Medications Scheduled Amlodipine (Norvasc), 5 MG PO BID Borage (Borago Officinalis) (Borage 1000), 1,000 MG PO DAILY Calcitriol (Rocaltrol), 0.5 MCG PO QAM Calcium Carbonate (Tums), 1,000 MG PO HS Carvedilol (Carvedilol), 1 TAB PO BIDM Cholecalciferol (Vitamin D3), 2,000 INTER.UNIT PO QAM Cyanocobalamin (Vitamin B12), 250 MCG PO QAM Epoetin Carlos Alberto (Procrit), 10,000 UNITS SC WK Eszopiclone (Lunesta), 1 MG PO HS Folic Acid (Folvite), 1 TAB PO DAILY Hydralazine Hcl (Apresoline), 100 MG PO TID Polysaccharide Iron Complex (Ferric X-150), 150 MG PO BID Sevelamer Hydroch (Renagel), 2,400 MG PO TIDM Sodium Bicarbonate (Sodium Bicarbonate), 1,950 MG PO TID Sodium Polystyrene Sulfonate (Kayexalate Susp-Substitute), 15 GM PO DAILY Problem List Medical Problems: (1) Anemia in CKD (chronic kidney disease) (2) CKD (chronic kidney disease) stage 5, GFR less than 15 ml/min (3) ESRD (end stage renal disease) (4) HTN (hypertension) (5) Hyperkalemia Surgical Problems: (1) H/O colonoscopy (2) History of dental surgery (3) History of esophagogastroduodenoscopy (EGD) (4) [place] teeth extracted Surgical / Medical History Past Medical/Surgical History: Cancer (basal cell), Hypertension, Kidney Disease Family History Diabetes mellitus FATHER FH: CHF (congestive heart failure) FATHER Hypertension FATHER Social History Smoking Status: Former Smoker Hx Alcohol Use - Type & Amnt: Yes Review of Systems Constitutional: + problem reported (pruritis), No chills, No diaphoresis, No fatigue, No fever, No malaise, No sweats, No weakness, No weight gain, No weight loss Respiratory: No ESPINO, No PND, No cough, No cyanosis, No dyspnea, No hemoptysis, No orthopnea, No problem reported, No short of breath, No sputum production, No stridor, No wheezing Cardiovascular: + edema (generalized), No chest pain, No chest pressure, No chest tightness, No cyanosis, No diaphoresis, No intermittent claudication, No lightheadedness, No mumur, No orthopnea, No palpitations, No paroxysmal nocturnal dyspnea, No problem reported, No syncope Gastrointestinal: No abdominal pain, No anorexia, No appetite changes, No belching, No constipation, No diarrhea, No dysphagia, No flatulence, No food intolerance, No heartburn, No hematemesis, No hematochezia, No hemorrhoids, No indigestion, No nausea, No problem reported, No rectal bleeding, No stool changes, No vomiting Genitourinary - Male: No difficulty urinating, No hematuria, No impotence, No penile discharge, No penile itching, No problem reported, No rash, No testicular pain, No testicular swelling Musculoskeletal: No back pain, No gout, No joint pain, No joint swelling, No muscle pain, No muscle stiffness, No muscle weakness, No neck pain, No problem reported Neurologic: No LOC, No dizziness, No headache, No lethargy, No memory loss, No numbness, No paresthesia, No pre-existing deficit, No problem reported, No seizures, No tics, No tingling, No tremors, No vertigo, No weakness Psychiatric: No alcohol abuse, No anxiety, No auditory hallucinations, No depression, No drug abuse, No homicidal ideation, No mood changes, No problem reported, No suicidal ideation, No visual hallucinations Physical Exam Constitutional: General Apperance: heathly-appearing, well-nourished, well-developed Level of Distress: mild distress Ambulation: ambulating normally Psychiatric: Mental Status: active & alert, normal mood, normal affect Orientation: oriented except where noted, to time, to place, to person Memory: recent memory normal, remote memory normal Lungs: Auscultation: breath sounds normal Cardiovascular: Heart Auscultation: RRR Peripheral Pulses: Radial Pulse: normal on the left, normal on the right Femoral Pulse: normal on the left, normal on the right Abdomen: Inspection & Palpation: soft Musculoskeletal: normal, normal strength (5/5 throughout), normal tone Extremities: Upper Right: no cyanosis, no edema, no varicosities, no palpable cord, no clubbing, no ulcers, no mottling Upper Left: no cyanosis, no edema, no varicosities, no palpable cord, no clubbing, no ulcers, no mottling Lower Right: edema Lower Left: edema Neurologic: Cranial Nerves: grossly intact Sensation: grossly intact Assessment and Plan Imp: End stage renal disease Plan: Patient here for insertion of permcath. I have discussed the risks options and benefits of the procedure with the patient. The patient understands the risks options and benefits and agrees to the procedure.
[2016-10-14] MEDS ORDERED: MIDAZOLAM HCL 1 MG/ML 2ML VIAL ONE (12:06)
[2016-10-14] MEDS ORDERED: FENTANYL CITRATE INJ 50 MCG/1 ML 2 ML VIAL ONE (12:06)
[2016-10-14 12:24] LABS: HEMATOCRIT 22.4 % (42-52)
[2016-10-14] MEDS ORDERED: CEFAZOLIN IV 2,000 MG/60 ML D5W IV ONE (12:39)
[2016-10-14] MEDS ORDERED: HEPARIN SOD (PORCINE) 5000 UNIT/ML 1 ML VIAL ONE (12:40)
[2016-10-14 12:58] LABS: BUN/CREATININE RATIO 4.5 (10-20); CALCIUM 10.1 mg/dl (8.5-10.1); PHOSPHORUS 8.1 mg/dl (2.5-4.9); POTASSIUM 4.5 mmol/L (3.5-5.1)
[2016-10-14] MEDS ORDERED: ONDANSETRON INJ 2 MG/ML 2 ML VIAL IV PRN (13:45)
[2016-10-14] MEDS ORDERED: ACETAMINOPHEN 325 MG TAB PO PRN (13:45)
[2016-10-14] MEDS ORDERED: HEPARIN SOD (PORCINE) 5000 UNIT/ML 1 ML VIAL IV ONE (14:07)
[2016-10-14] MEDS ORDERED: MIDAZOLAM HCL 1 MG/ML 2ML VIAL IV ONE (14:07)
[2016-10-14] MEDS ORDERED: FENTANYL CITRATE INJ 50 MCG/1 ML 2 ML VIAL IV ONE (14:07)
[2016-10-14] MEDS ORDERED: LIDOCAINE HCL 1% 20 ML VIAL SQ ONE (14:07)
--- NOTE | 2016-10-14 14:12 | Procedure Note ---
Post-Moderate Sedation Plan General Date of Moderate Sedation Oct 14, 2016. Vital Signs: Vital Signs Past 12 Hours Date Time Temp Pulse Resp B/P Pulse Ox O2 Delivery O2 Flow Rate FiO2 10/14/16 12:36 36.6 82 20 183/90 93 Room Air Review - Discharge Plan Post Moderate Sedation Plan: On clinical assessment, the patient appears to have tolerated the conscious sedation without complications. Patient is recovering as anticipated. Patient will continue to be monitored by nursing and may be discharged when conscious sedation discharge criteria are met.
--- NOTE | 2016-10-14 14:13 | [facility] Post Operative Brief Note ---
Immediate Operative Summary Operative Date Oct 14, 2016. Pre-Operative Diagnosis End Stage Renal Disease Post-Operative Diagnosis Same Procedure(s) Performed Insertion of Perm Catheter, Right Internal Jugular Approach, Ultrasound Localization of Right Internal Jugular Vein, Fluoro for positioning, Moderate Sedation from [id number] Boyce Plasterer Helper Surgeon(s) None Estimated Blood Loss 5 Findings tip in distal SVC Specimens None Anesthesia Local with moderate conscious sedation Complication(s) None Disposition Recovery Room / PACU
[2016-10-14] MEDS ORDERED: OXYCODONE/ACETAMINOPHEN 5-325 TAB PO PRN (14:15)
[2016-10-14] MEDS ORDERED: HydrALAZINE HCL 20 MG/ML VIAL ONE (14:48)
--- NOTE | 2016-10-14 16:02 | NEPHROLOGY CONSULTATION ---
DATE OF CONSULTATION: 10/14/2016 DATE OF CONSULTATION: 10/14/2016. ATTENDING OF RECORD: Dr. Pedroza. REASON FOR CONSULTATION: End-stage renal disease. HISTORY OF PRESENT ILLNESS: This is a 61-year-old male with CKD stage V, not yet on dialysis who presents with a creatinine of 23 with elevated phosphorus levels and worsening edema in the lower extremities, some elements of confusion who went to same day surgery today for a tunneled dialysis catheter. The patient is agreeable for admission for initiation of dialysis. I have personally been recommending dialysis in this patient for the past year. The patient has been hesitant to start for fear of losing his job and his insurance. I have encouraged in the past to speak to his administrators and tell them the situation he is in. We have been doing serial blood work and the patient has continued to slowly deteriorate. The patient is agreeable to dialysis. I have been encouraging bringing him into the hospital for either PD or tunneled dialysis catheter placement and staying for several days for dialysis treatment initiation, getting outpatient dialysis set up as an outpatient and then transitioning over. The patient though did not want to do this secondary to his work restraints. The patient has been working with GFR under 2. The patient is also followed by the anemia clinic and has been getting Procrit injections. The patient was evaluated by [facility] who denied him a transplant listing secondary to the fact that the patient was not starting dialysis despite my strong recommendations to initiate dialysis. The patient did quit tobacco about 2 years ago, has a history of hypertension and feel this is end-stage renal disease secondary to high blood pressure. The patient is not a diabetic. Denies any NSAIDs. In order to control his potassium he has been ingesting water softener pellets despite my recommendation not to do so. The patient needs emergent initiation of dialysis and has not had his outpatient dialysis set up yet. We will be starting hopefully Tuesday morning. Drawing hepatitis labs currently at this time. PAST MEDICAL HISTORY: CKD stage V, end-stage renal disease not yet on dialysis, coronary artery disease with history of non-STEMI in the past, anemia of end-stage renal failure on Procrit, history of skin cancer. PAST SURGICAL HISTORY: Denies. FAMILY HISTORY: Significant for father with diabetes and hypertension and congestive heart failure as well as myelodysplasia. A sister with hepatitis C. 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 He is a former smoker, quit in 2014. No alcohol, no drugs. REVIEW OF SYSTEMS: GENERAL: No change in weight. No fevers or chills. Positive fatigue. HEAD: No headaches. NECK: No recent swelling in the thyroid area. No complaints of lumps in neck. RESPIRATORY: Denies any shortness of breath, unable to lay flat. CARDIAC: Significant edema in his lower extremities. No chest pain. GASTROINTESTINAL: Denies any nausea or vomiting, no diarrhea or constipation. URINARY: Positive nocturia. MUSCULOSKELETAL: No joint pain or arthritis. NEUROLOGICALLY: No tremors, no seizures, no fainting; however, has noted that he has become more confused. SKIN: No rash, positive significant itching attributed to the high phosphorus levels. Positive worsening edema. MEDICATIONS: REVIEWED PHYSICAL EXAMINATION: VITAL SIGNS: Temperature 36.6, pulse 82, respiratory rate 20, blood pressure is 183/90, satting 93% on room air. GENERAL: Awake, alert, oriented x3. EYES: No scleral icterus. EARS, NOSE, THROAT: Moist mucous membranes. NECK: Supple. PULMONARY: Clear to auscultation. CARDIAC: Regular rate and rhythm. ABDOMEN: Bowel sounds positive, soft, nontender. EXTREMITIES: +2 to 3 pitting edema. NEUROLOGICALLY: Nonfocal. DERMATOLOGY: No rash or ulcers noted. LABORATORY DATA: Hemoglobin level 7.3, hematocrit 22.4. Sodium level 143, potassium is 4.5, chloride is 102, bicarb is 25, BUN is 104, creatinine is 23, glucose is 88. Phosphorus is 8.1, albumin is 3.3, calcium is 10.1. IMPRESSION AND PLAN: 1. Chronic kidney disease stage V/end-stage renal disease, not yet established at an outpatient dialysis unit. Should be going on Tuesday morning at 6:15 a.m. to the [facility] dialysis unit to initiate outpatient dialysis. Initiating urgent dialysis treatment today secondary to uremic symptoms as well as volume overload with significant elevated phosphorus likely contributing to his significant itching. Will do a 2-hour treatment secondary to his elevated BUN and creatinine and risks of dysequilibrium syndrome and will do a 2-1/2 hour treatment on Tuesday as an outpatient and then continue 3-hour treatments Tuesday, , Tuesday at the outpatient dialysis unit. 2. Anemia of renal failure. Hemoglobin levels are trending down. Likely combination of dilution from the volume overload as well as anemia of end-stage renal failure. Will redose Procrit again today. 3. Renal osteodystrophy. The patient's phosphorous levels are elevated. The patient is taking phosphate binders, but requires dialysis to help lower the phosphorus levels. PTH levels are likely elevated as well. We will give a dose is Zemplar as well. 4. The patient has significant uremic predisposition with itching, some confusion noted by , worsening volume overload, anemia of end-stage renal failure, elevated phosphorus levels. The patient has not followed my recommendations of initiating dialysis sooner and/or being admitted for 3 day stay to remove toxins and stabilize the patient secondary to work restraints. Will dialyze today urgently and patient will resume and initiate outpatient therapy on Tuesday. This is an urgent dialysis treatment which in my opinion is life saving and adheres to a qualification of full admission. If we do not dialyze the patient today there is a possibility that the patient may tonight and/or tomorrow while waiting for dialysis to be initiated. The patient and understand the risks and are agreeable to dialysis treatment today. Dialysis nurse has been notified, Dr. Boyce is placing tunneled dialysis catheter now and hopefully the patient's symptoms will start to improve with adequate dialysis. SUZAND
[2016-10-14 18:16] LABS: HEMATOCRIT 19.5 % (42-52)
[2016-10-14] MEDS ORDERED: EPOETIN ALFA 10,000 UNITS/ML VIAL IV. SCH (18:30)
[2016-10-14] MEDS ORDERED: HydrALAZINE HCL 20 MG/ML VIAL IV. ONE (18:30)
[2016-10-14] MEDS ORDERED: PARICALCITOL 5 MCG/ML VIAL (ZEMPLAR) IV. SCH (18:30)
[2016-10-14] MEDS ORDERED: ACETAMINOPHEN 325 MG TAB PO SCH (19:30)
[2016-10-14] MEDS ORDERED: FUROSEMIDE INJ 40 MG in SYRINGE 0 ML IV SCH (19:30)
--- NOTE | 2016-10-14 19:38 | DIAGNOSTIC IMAGING REPORT ---
SINGLE VIEW CHEST CLINICAL HISTORY: Anemia. FINDINGS: An AP, portable, upright chest radiograph is compared to study dated 09/09/2016. The examination is degraded by portable technique, large body habitus, and apical lordotic positioning. A right sided central venous catheter is new from previous. The heart is enlarged. The pulmonary vasculature is noncongested. A right paratracheal density likely represents the thyroid gland. There is no airspace consolidation or large pleural effusion. No pneumothorax is seen. The bony thorax is grossly intact. IMPRESSION: 1. Cardiomegaly without radiographic evidence of congestive failure. 2. No airspace consolidation or large pleural effusion is seen. 3. A right-sided central venous catheter is new from previous. No pneumothorax is seen. Electronically signed by: Maurizio Dumas M.D. 10/14/2016 7:36 PM Dictated Date/Time: 10/14/2016 7:35 PM
[2016-10-14 19:54] LABS: HEMATOCRIT 23.2 % (42-52); MEAN CELL VOLUME 90.3 fL (80-100); MEAN CORPUSCULAR HEMOGLOBIN 28.8 pg (25-34); MEAN PLATELET VOLUME 8.2 fL (7.4-10.4); PLATELET COUNT 144 K/uL (130-400); RED BLOOD COUNT 2.57 M/uL (4.7-6.1); WHITE BLOOD COUNT 8.15 K/uL (4.8-10.8)
[2016-10-14] MEDS ORDERED: HydrALAZINE HCL 20 MG/ML VIAL IV. PRN (20:00)
[2016-10-14 20:03] LABS: MEAN CORPUSCULAR HGB CONC 31.9 g/dl (32-36)
--- NOTE | 2016-10-14 20:12 | History and Physical ---
History & Physical Date & Time of Service: Oct 14, 2016 at 19:50 Chief Complaint: End Stage Renal Disease Primary Care Physician: Emily Lynch M.D. History of Present Illness 61 year old male admitted after having tunnelled dialysis catheter placed with subsequent dialysis treatment. Noted this was the patient's first dialysis treatment. Patient has been advised for the past several months to start dialysis however has been deferring. At the time of my exam, patient is sitting on the edge of the bed, no complaints. He does note increasing BLLE edema over the past few days. He denies chest pain and shortness of breath. No lightheadedness or dizziness. He denies abdominal pain, nausea, diarrhea, and vomiting. No fever or chills. Upon arrival to the floor, patient is found to have blood pressure of 210/98. Post procedure H/H is 6.3/19.5. Patient adamant on leaving early in the morning to go to work. Past Medical/Surgical History Medical Problems: (1) Anemia due to chronic kidney disease Status: Chronic (2) ESRD (end stage renal disease) Status: Chronic (3) GI bleed Status: Resolved (4) HTN (hypertension) Status: Chronic (5) NSTEMI (non-ST elevated myocardial infarction) Permanent Comment: due to severe anemia Status: Resolved Surgical Problems: (1) H/O colonoscopy Status: Chronic (2) History of dental surgery Status: Chronic (3) History of esophagogastroduodenoscopy (EGD) Status: Chronic Family History Diabetes mellitus FATHER FH: CHF (congestive heart failure) FATHER Hypertension FATHER Social History Smoking Status: Former Smoker Alcohol Use: none Immunizations History of Influenza Vaccine: Yes Influenza Vaccine Date: Jun 19, 2016 Multi-Drug Resistant Organisms History of MDRO: No Allergies Coded Allergies: No Known Allergies (Unverified , 10/14/16) Home Medications Scheduled Amlodipine (Norvasc), 5 MG PO BID Borage (Borago Officinalis) (Borage 1000), 1,000 MG PO DAILY Calcitriol (Rocaltrol), 0.5 MCG PO QAM Calcium Carbonate (Tums), 1,000 MG PO HS Carvedilol (Carvedilol), 1 TAB PO BIDM Cholecalciferol (Vitamin D3), 2,000 INTER.UNIT PO QAM Cyanocobalamin (Vitamin B12), 250 MCG PO QAM Epoetin Carlos Alberto (Procrit), 10,000 UNITS SC WK Eszopiclone (Lunesta), 1 MG PO HS Folic Acid (Folvite), 1 TAB PO DAILY Hydralazine Hcl (Apresoline), 100 MG PO TID Polysaccharide Iron Complex (Ferric X-150), 150 MG PO BID Sevelamer Hydroch (Renagel), 2,400 MG PO TIDM Sodium Bicarbonate (Sodium Bicarbonate), 1,950 MG PO TID Sodium Polystyrene Sulfonate (Kayexalate Susp-Substitute), 15 GM PO DAILY Review of Systems 10 point review of systems was completed with the pertinent positives and negatives noted per the HPI Physical Exam Vital Signs Date Time Temp Pulse Resp B/P Pulse Ox O2 Delivery O2 Flow Rate FiO2 10/14/16 18:30 36.6 86 18 201/94 96 Room Air 10/14/16 18:00 36.5 82 16 210/98 97 Room Air 10/14/16 17:36 36.5 84 202/106 10/14/16 17:30 88 168/101 10/14/16 17:15 83 190/97 10/14/16 17:00 80 179/99 10/14/16 16:45 80 178/97 10/14/16 16:30 78 179/93 10/14/16 16:15 79 191/84 10/14/16 16:00 82 180/91 10/14/16 15:45 75 188/100 10/14/16 15:33 79 193/98 10/14/16 15:19 36.9 81 186/106 10/14/16 12:36 36.6 82 20 183/90 93 Room Air General Appearance: no apparent distress Head: normocephalic Eyes: normal inspection ENT: hearing grossly normal Neck: supple, no JVD Respiratory/Chest: no respiratory distress, + decreased breath sounds, + pertinent finding (tunnelled dialysis catheter in place to right chest, dressing bloody but intact) Cardiovascular: regular rate, rhythm, + pertinent finding (+2 edema BLLE) Abdomen/GI: normal bowel sounds, non tender, soft Extremities/Musculoskelatal: normal inspection, no calf tenderness Neurologic/Psych: no motor/sensory deficits, alert, normal mood/affect, oriented x 3 Skin: normal color, warm/dry Diagnostics Laboratory Results Results Past 24 Hours Test 10/14/16 12:17 10/14/16 17:37 10/14/16 19:05 Range/Units Hemoglobin 7.3 6.4 14.0-18.0 g/dL Hematocrit 22.4 19.5 42-52 % Sodium Level 143 136-145 mmol/L Potassium Level 4.5 3.5-5.1 mmol/L Chloride Level 102 98-107 mmol/L Carbon Dioxide Level 25 21-32 mmol/L Anion Gap 16.0 3-11 mmol/L Blood Urea Nitrogen 104 7-18 mg/dl Creatinine 23.00 0.60-1.40 mg/dl Est Creatinine Clear Calc Drug Dose 3.8 ml/min Estimated GFR () 2.1 Estimated GFR (Non- 1.8 BUN/Creatinine Ratio 4.5 10-20 Random Glucose 88 70-99 mg/dl Calcium Level 10.1 8.5-10.1 mg/dl Phosphorus Level 8.1 2.5-4.9 mg/dl Albumin 3.3 3.4-5.0 gm/dl Impression Assessment and Plan ESRD S/P TUNNELLED DIALYSIS CATHETER PLACEMENT - admitted to med/surg post procedure however BP significantly elevated and hgb 6.3 - will transfer to tele - s/p dialysis today - check PRP, EKG, and CXR - nephro on board - continue routine renal medications ANEMIA - hgb 6.3; likely acute on chronic anemia due to blood loss from tunnelled catheter placement today - baseline hgb ~ 8-9 - will transfuse with 2 units PRBC HYPERTENSIVE URGENCY - Hydralazine 10mg IV x1, resume home medications of PO Hydralazine, Amlodipine , and Carvedilol - PRN Hydralazine DVT PROPHYLAXIS - SCDs DISPO - In my clinical judgment this beneficiary meets acute admission criteria, established by [facility], that includes being hospitalized through two midnights. - Patient adamant about leaving early in the morning to be able to go to work - discussed with patient that he likely will not be safe to be discharged early in the morning due to anemia and significantly elevated blood pressure. ADDENDUM: I have seen and examined the patient and discussed the case with the provider above and Dr. Angeles. I agree with the care plan as stated. He came from same day surgery for initiation of dialysis which was considered emergent and life-saving. He was admitted with consideration for short-term monitoring and quick discharge so he could get to work tomorrow in [place], where he works as an [employer]. After HD, H/H revealed significant anemia requiring 2 units of blood to be given. He was consented, and LR irradiated blood was ordered in the setting of possible future renal transplant. His BP remained high (>200 systolic) and was still elevated to 180s after IV and PO meds given tonight. The patient is comfortable on exam and asymptomatic but is stating he will leave this hospital at 0730 no matter what. He and his were apprised of the dangers in leaving [facility] (including driving to [place] and treating patients in his condition), but that if they chose this option, his hospital stay may not be paid for. He verbalized understanding. Post-op his cath site was oozing, but this stopped after pressure bandage was applied. Coags were normal, baseline CXR prior to blood product administration revealed no active disease. EKG was SR with LVH. Blood is pending overnight with a post- transfusion H/H in the morning. Nephro is aware of overnight plan. Radha Pedroza DO (Hospitalist) Level of Care Telemetry Resuscitation Status FULL RESUSCITATION VTE Prophylaxis VTE Risk Assessment Done? Y/N: Yes Risk Level: Moderate Given or contraindicated: SCD's (anemia)
[2016-10-14 20:15] LABS: PROTHROMBIN TIME (PATIENT) 10.4 SECONDS (9.0-12.0)
[2016-10-14 20:29] LABS: BUN/CREATININE RATIO 4.3 (10-20); CALCIUM 9.4 mg/dl (8.5-10.1); MAGNESIUM 2.5 mg/dl (1.8-2.4); POTASSIUM 4.1 mmol/L (3.5-5.1)
[2016-10-14] MEDS ORDERED: IRON COMPLEX POLYSACCHARIDE W/VIT C 150 MG CAP PO SCH (21:00)
[2016-10-14] MEDS ORDERED: CALCIUM CARBONATE 500 MG CHEWABLE PO SCH (21:00)
[2016-10-14] MEDS ORDERED: SODIUM BICARBONATE 650 MG TAB PO SCH (21:00)
[2016-10-14] MEDS ORDERED: LABETALOL HCL IV 5 MG/ML 20ML ONE (21:24)
[2016-10-14] MEDS ORDERED: LABETALOL HCL IV 5 MG/ML 20ML IV STA (21:30)
[2016-10-14] MEDS ORDERED: NURSING VERBAL MED ORDER ONE (21:30)
[2016-10-14] MEDS: AMLODIPINE BESYLATE 5 MG TAB PO SCH (21:35)
[2016-10-14] MEDS ORDERED: CLONIDINE HCL 0.1 MG TAB PO STA (22:41)
[2016-10-14] MEDS ORDERED: CLONIDINE HCL 0.1 MG TAB PO PRN (22:45)
[2016-10-15] VITALS (23 sets, daily range): BP systolic 146–192; BP diastolic 74–107; PULSE 77–90; TEMP 36.7–37.2; O2SAT 93–98
[2016-10-15] MEDS ORDERED: HydrALAZINE HCL 20 MG/ML VIAL IV. STA (00:47)
[2016-10-15] MEDS ORDERED: LORAZEPAM 0.5 MG TAB PO PRN (01:45)
[2016-10-15] MEDS ORDERED: CARVEDILOL 6.25 MG TAB PO STA (01:47)
[2016-10-15] MEDS ORDERED: HydrALAZINE HCL 20 MG/ML VIAL IV. PRN (02:00)
[2016-10-15] MEDS ORDERED: CARVEDILOL 3.125 MG TAB PO SCH ×2 (07:30)
[2016-10-15] MEDS: SEVELAMER HYDROCH 800 MG TAB PO SCH ×3 (07:41→17:03)
[2016-10-15] MEDS: AMLODIPINE BESYLATE 5 MG TAB PO SCH (07:44)
[2016-10-15] MEDS ORDERED: CALCITRIOL 0.25 MCG CAP PO SCH (09:00)
[2016-10-15] MEDS ORDERED: CYANOCOBALAMIN 500 MCG TAB (VIT B-12) PO SCH (09:00)
[2016-10-15] MEDS ORDERED: CHOLECALCIFEROL 1000 INTER.UNIT TAB PO SCH (09:00)
--- NOTE | 2016-10-15 10:02 | Nephrology Progress Note ---
Nephrology Progress Note Date of Service: Oct 15, 2016. Subjective 61 yo male seen for ESRD who had not yet started on dialysis and was uremic, anemic, significant pruritus and volume overload and edematous. pt underwent tunneled line yesterday and underwent emergent 2 hour dialysis treatment where they removed 3 liters. bp though was high and continued to bleed from catheter site. required two units of leuko poor reduced irradiated blood overnight. bp now in the 180s. appetite is good. Objective Date Time Temp Pulse Resp B/P Pulse Ox O2 Delivery O2 Flow Rate FiO2 10/15/16 08:38 36.8 84 19 191/86 95 10/15/16 08:00 Room Air 10/15/16 07:19 36.8 87 16 181/86 96 Room Air 10/15/16 06:44 36.7 83 16 180/87 96 10/15/16 05:45 37.2 84 18 189/89 96 10/15/16 05:15 36.9 88 18 181/86 96 10/15/16 04:55 37.1 86 18 184/86 98 10/15/16 04:00 Room Air 10/15/16 03:45 37.0 89 18 180/86 93 10/15/16 02:40 36.8 86 18 178/84 96 10/15/16 02:07 36.8 86 18 185/85 98 10/15/16 01:48 36.9 90 18 180/82 97 Room Air 10/14/16 23:59 Room Air 10/14/16 23:28 37.4 84 18 185/76 96 Room Air 10/14/16 22:18 190/86 10/14/16 22:03 87 180/83 10/14/16 20:41 36.9 88 16 206/94 96 Room Air 200/91 10/14/16 20:40 36.9 88 16 206/94 96 Room Air 10/14/16 20:10 36.6 86 18 96 10/14/16 18:30 36.6 86 18 201/94 96 Room Air 10/14/16 18:00 36.5 82 16 210/98 97 Room Air 10/14/16 17:36 36.5 84 202/106 10/14/16 17:30 88 168/101 10/14/16 17:15 83 190/97 10/14/16 17:00 80 179/99 10/14/16 16:45 80 178/97 10/14/16 16:30 78 179/93 10/14/16 16:15 79 191/84 10/14/16 16:00 82 180/91 10/14/16 15:45 75 188/100 10/14/16 15:33 79 193/98 10/14/16 15:19 36.9 81 186/106 10/14/16 12:36 36.6 82 20 183/90 93 Room Air Physical Exam: General-aaox3 Eyes-no scleral icterus ENT-mmm Neck-supple Lungs-cta Heart-rrr Abdomen-bs+ s/nt/nd Extremities-+2 edema in legs Neuro-nonfocal Current Inpatient Medications Medications (Trade) Dose Ordered Sig/Aleksandra Route Start Time Stop Time Status Last Admin Dose Admin Acetaminophen (Tylenol Tab) 650 mg Q4H PRN PO 10/14/16 13:45 11/13/16 13:44 Oxycodone/ Acetaminophen (Percocet 5-325mg Tab) FOR MODERATE PAIN ... Q4H PRN PO 10/14/16 14:15 10/28/16 14:14 Amlodipine Besylate (Norvasc Tab) 5 mg BID PO 10/14/16 21:00 11/13/16 20:59 10/15/16 07:44 5 MG Calcium Carbonate (Tums Chew Tab) 1,000 mg HS PO 10/14/16 21:00 11/13/16 20:59 10/14/16 21:35 1,000 MG Hydralazine HCl (Apresoline Tab) 100 mg TID PO 10/14/16 21:00 11/13/16 20:59 10/15/16 07:40 100 MG Sevelamer HCl (Renagel Tab) 2,400 mg TIDM PO 10/15/16 07:30 11/14/16 08:29 10/15/16 07:41 2,400 MG Calcitriol (Rocaltrol Cap) 0.5 mcg QAM PO 10/15/16 09:00 11/14/16 08:59 10/15/16 07:39 0.5 MCG Cholecalciferol (Vitamin D Tab) 2,000 inter.unit QAM PO 10/15/16 09:00 11/14/16 08:59 10/15/16 07:41 2,000 INTER.UNIT Cyanocobalamin (Vitamin B-12 Tab) 250 mcg QAM PO 10/15/16 09:00 11/14/16 08:59 10/15/16 07:41 250 MCG Miscellaneous Information (Order Awaiting Action) 1 ea QS N/A 10/15/16 00:00 11/14/16 00:00 Clonidine HCl (Catapres Tab) 0.1 mg Q6 PRN PO 10/14/16 22:45 11/13/16 22:44 Carvedilol (Coreg Tab) 6.25 mg BIDM PO 10/15/16 07:30 11/14/16 07:29 10/15/16 07:40 6.25 MG Hydralazine HCl (HydrALAZINE INJ) 20 mg Q6H PRN IV. 10/15/16 02:00 11/14/16 01:59 10/15/16 05:55 20 MG Lorazepam (Ativan Tab) 0.5 mg Q8 PRN PO 10/15/16 01:45 11/14/16 01:44 10/15/16 01:54 0.5 MG Last 24 Hours Test 10/14/16 12:17 10/14/16 17:37 10/14/16 19:45 10/15/16 04:44 Hemoglobin 7.3 g/dL 6.4 g/dL 7.4 g/dL Hematocrit 22.4 % 19.5 % 23.2 % Sodium Level 143 mmol/L 143 mmol/L Potassium Level 4.5 mmol/L 4.1 mmol/L Chloride Level 102 mmol/L 103 mmol/L Carbon Dioxide Level 25 mmol/L 25 mmol/L Anion Gap 16.0 mmol/L 15.0 mmol/L Blood Urea Nitrogen 104 mg/dl 77 mg/dl Creatinine 23.00 mg/dl 18.00 mg/dl Est Creatinine Clear Calc Drug Dose 3.8 ml/min 4.9 ml/min Estimated GFR () 2.1 2.8 Estimated GFR (Non- 1.8 2.5 BUN/Creatinine Ratio 4.5 4.3 Random Glucose 88 mg/dl 117 mg/dl Calcium Level 10.1 mg/dl 9.4 mg/dl Phosphorus Level 8.1 mg/dl Albumin 3.3 gm/dl White Blood Count 8.15 K/uL Red Blood Count 2.57 M/uL Mean Corpuscular Volume 90.3 fL Mean Corpuscular Hemoglobin 28.8 pg Mean Corpuscular Hemoglobin Concent 31.9 g/dl RDW Standard Deviation 58.4 fL RDW Coefficient of Variation 17.9 % Platelet Count 144 K/uL Mean Platelet Volume 8.2 fL Prothrombin Time 10.4 SECONDS Prothromb Time International Ratio 1.0 Magnesium Level 2.5 mg/dl Test 10/15/16 09:42 Assessment & Plan ESRD-for dialysis again today. 2.5 hours 250/500 bf/df. plan on removing 4 liters to help with bp. pt is set up at outpt dialysis unit tomorrow and will be at [facility] at 5am. pt plans to go back to work tomorrow after dialysis. 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 Anemia of renal failure-unable to give him procrit today given his high blood pressures. hopefully bp improves with fluid removal. did get two units of prbcs lp/irradiated overnight. TAVIA-on phosphate binders but phos levels were still elevated given lack of dialysis. hoping as phos levels improve, itching should improve. HTN-continue current medications. stopped patients high dose bicarb tablets given the edema and htn and the initiation of dialysis. bicarb of 25. if pt tolerates dialysis well today and catheter no longer oozing with bp under better control, ok from renal perspective to go home today and continue outpt dialysis tomorrow. make sure to have him stop the iron supplement and bicarb tablets and calcitriol and tums upon discharge.
--- NOTE | 2016-10-15 10:05 | Progress Note ---
Internal Med Progress Note Date of Service: Oct 15, 2016. Provider Documentation: SUBJECTIVE: The patient was seen and examined Admitted with Bilateral leg swelling ,SOB,Very high BP with ESRD No Chest pain,palpitation or SOB at rest CKD diagnosed sometime in December of last year OBJECTIVE: Vital Signs-as noted below Exam: General-No distress at rest Eyes-normal ENT-normal Neck-Supple Lungs-Clear to auscultate bilaterally Has Perm cath placed right Internal Jugular Vein on 10/14/16 Heart-Regular,no murmur appreciated Abdomen-Benign,no masses,bowel sound present Extremities-2+ edema bilaterally Neuro-AAOX3 Lab data as noted below. ASSESSMENT & PLAN: ESRD S/P Right Perm Catheter Placement on 10/14/16 (Right Internal Jugular Vein) -Creatinine was very high at >23 and BUN >100 -Appreciate Nephrology input - s/p dialysis on 10/14/16 and ongoing dialysis today and tomorrow -Creatinine is improving HYPERTENSIVE URGENCY-Accelerated HTN -H/O HTN and complicated by Renal failure - Hydralazine 10mg IV x1, resume home medications of PO Hydralazine, Amlodipine , and Carvedilol -BP is trending down ANEMIA of CKD -Has been getting Procrit and will need Periodic Blood Transfusion - hgb 6.3; likely acute on chronic anemia due to blood loss from tunnelled catheter placement today - baseline hgb ~ 8-9 - received 1 unit yesterday H/O NSTEMI-pt does not believe [place] Ischemia -complicated by very Low Hb No acute issue now DVT PROPHYLAXIS -H/O GI bleed - SCDs DISPO Likely to be discharged after HD today Vital Signs: Date Time Temp Pulse Resp B/P Pulse Ox O2 Delivery O2 Flow Rate FiO2 10/15/16 08:38 36.8 84 19 191/86 95 10/15/16 08:00 Room Air 10/15/16 07:19 36.8 87 16 181/86 96 Room Air 10/15/16 06:44 36.7 83 16 180/87 96 10/15/16 05:45 37.2 84 18 189/89 96 10/15/16 05:15 36.9 88 18 181/86 96 10/15/16 04:55 37.1 86 18 184/86 98 10/15/16 04:00 Room Air 10/15/16 03:45 37.0 89 18 180/86 93 10/15/16 02:40 36.8 86 18 178/84 96 10/15/16 02:07 36.8 86 18 185/85 98 10/15/16 01:48 36.9 90 18 180/82 97 Room Air 10/14/16 23:59 Room Air 10/14/16 23:28 37.4 84 18 185/76 96 Room Air 10/14/16 22:18 190/86 10/14/16 22:03 87 180/83 10/14/16 20:41 36.9 88 16 206/94 96 Room Air 200/91 10/14/16 20:40 36.9 88 16 206/94 96 Room Air 10/14/16 20:10 36.6 86 18 96 10/14/16 18:30 36.6 86 18 201/94 96 Room Air 10/14/16 18:00 36.5 82 16 210/98 97 Room Air 10/14/16 17:36 36.5 84 202/106 10/14/16 17:30 88 168/101 10/14/16 17:15 83 190/97 10/14/16 17:00 80 179/99 10/14/16 16:45 80 178/97 10/14/16 16:30 78 179/93 10/14/16 16:15 79 191/84 10/14/16 16:00 82 180/91 10/14/16 15:45 75 188/100 10/14/16 15:33 79 193/98 10/14/16 15:19 36.9 81 186/106 10/14/16 12:36 36.6 82 20 183/90 93 Room Air Lab Results: Results Past 24 Hours Test 10/14/16 12:17 10/14/16 17:37 10/14/16 19:45 10/15/16 04:44 Range/Units Hemoglobin 7.3 6.4 7.4 14.0-18.0 g/dL Hematocrit 22.4 19.5 23.2 42-52 % Sodium Level 143 143 136-145 mmol/L Potassium Level 4.5 4.1 3.5-5.1 mmol/L Chloride Level 102 103 98-107 mmol/L Carbon Dioxide Level 25 25 21-32 mmol/L Anion Gap 16.0 15.0 3-11 mmol/L Blood Urea Nitrogen 104 77 7-18 mg/dl Creatinine 23.00 18.00 0.60-1.40 mg/dl Est Creatinine Clear Calc Drug Dose 3.8 4.9 ml/min Estimated GFR () 2.1 2.8 Estimated GFR (Non- 1.8 2.5 BUN/Creatinine Ratio 4.5 4.3 10-20 Random Glucose 88 117 70-99 mg/dl Calcium Level 10.1 9.4 8.5-10.1 mg/dl Phosphorus Level 8.1 2.5-4.9 mg/dl Albumin 3.3 3.4-5.0 gm/dl White Blood Count 8.15 4.8-10.8 K/uL Red Blood Count 2.57 4.7-6.1 M/uL Mean Corpuscular Volume 90.3 80-100 fL Mean Corpuscular Hemoglobin 28.8 25-34 pg Mean Corpuscular Hemoglobin Concent 31.9 32-36 g/dl RDW Standard Deviation 58.4 36.4-46.3 fL RDW Coefficient of Variation 17.9 11.5-14.5 % Platelet Count 144 130-400 K/uL Mean Platelet Volume 8.2 7.4-10.4 fL Prothrombin Time 10.4 9.0-12.0 SECONDS Prothromb Time International Ratio 1.0 0.9-1.1 Magnesium Level 2.5 1.8-2.4 mg/dl Test 10/15/16 09:42 Range/Units
[2016-10-15 14:03] LABS: MEAN CELL VOLUME 88.9 fL (80-100); MEAN CORPUSCULAR HEMOGLOBIN 29.6 pg (25-34); MEAN CORPUSCULAR HGB CONC 33.3 g/dl (32-36); PLATELET COUNT 120 K/uL (130-400); WHITE BLOOD COUNT 5.78 K/uL (4.8-10.8)
[2016-10-15 14:33] LABS: BUN/CREATININE RATIO 3.8 (10-20); CALCIUM 8.6 mg/dl (8.5-10.1); POTASSIUM 3.6 mmol/L (3.5-5.1)
[2016-10-15] MEDS ORDERED: CARVEDILOL 12.5 MG TAB PO SCH (16:45)
[2016-10-15] MEDS ORDERED: CRG125 PO (17:27)
--- NOTE | 2016-10-15 17:30 | Discharge Instructions ---
Discharge Instructions Admission Reason for Admission: End Stage Renal Disease Discharge Discharge Diagnosis / Problem: Hypertensive Urgency,ESRD on HD Discharge Goals Goal(s): Prevent Disease Progression Activity Recommendations Activity Limitations: resume your previous activity . Instructions / Follow-Up Instructions / Follow-Up DR Vianney Lynch on 10/20/16 at 12:10.Continue Hemodialysis Current Hospital Diet Patient's current hospital diet: Renal Diet, Low Potassium Diet (2g K) Discharge Diet Recommended Diet: Low Sodium Diet (2gm Na), Renal Diet Fluid Restriction: 1500 ml (6 cups) Procedures Procedures Performed: Insertion of Perm Catheter, Right Internal Jugular Approach, Ultrasound Localization of Right Internal Jugular Vein, Fluoro for positioning, Moderate Sedation from 9660-0666 Pending Studies Studies pending at discharge: no Medical Emergencies . Who to Call and When: Medical Emergencies: If at any time you feel your situation is an emergency, please call 911 immediately. . Non-Emergent Contact Non-Emergency issues call your: Primary Care Provider . Past History Medical & Surgical History: (1) Anemia due to chronic kidney disease (2) ESRD (end stage renal disease) (3) HTN (hypertension) (4) History of dental surgery (5) History of esophagogastroduodenoscopy (EGD) . "Provider Documentation" section prepared by Caio Louis. VTE Core Measure Inpt VTE Proph given/why not?: SCD's (anemia)
--- NOTE | 2016-10-15 18:26 | Discharge Summary ---
Discharge Summary Admission Date: Oct 14, 2016 at 13:45 Discharge Date: Oct 15, 2016 Discharge Disposition: Home Principal Diagnosis: Hypertensive Urgency,ESRD on HD Secondary Diagnoses/Problems: Please see H&P Procedures: Placement of Perm catheter Consultations: Nephrology and Vascular Surgery Medication Reconciliation New Medications: Carvedilol (Carvedilol) 12.5 Mg Tab 12.5 MG PO BIDM for 30 Days, #60 TAB Continued Medications: Amlodipine (Norvasc) 5 Mg Tab 5 MG PO BID, TAB Borage (Borago Officinalis) (Borage 1000) 1,000 Mg Cap 1000 MG PO DAILY Cholecalciferol (Vitamin D3) 2,000 Unit Cap 2000 INTER.UNIT PO QAM, CAP Cyanocobalamin (Vitamin B12) 1,000 Mcg Tab 250 MCG PO QAM Epoetin Carlos Alberto (Procrit) 2,000 [place] [id number] UNITS SC WK Eszopiclone (Lunesta) 1 Mg Tab 1 MG PO HS for 10 Days, #10 TAB Folic Acid (Folvite) Unknown Strength Tab 1 TAB PO DAILY, TAB Hydralazine Hcl (Apresoline) 50 Mg Tab 100 MG PO TID, TAB Sevelamer Hydroch (Renagel) 800 Mg Tab 2400 MG PO TIDM, TAB Sodium Polystyrene Sulfonate (Kayexalate Susp-Substitute) 15 Gm/60 Ml Susp 15 GM PO DAILY for 10 Days, #600 ML Discontinued Medications: Calcitriol (Rocaltrol) 0.5 Mcg Cap 0.5 MCG PO QAM Calcium Carbonate (Tums) 500 Mg Chew 1000 MG PO HS Carvedilol (Carvedilol) 3.125 Mg Tab 1 TAB PO BIDM Polysaccharide Iron Complex (Ferric X-150) 150 Mg Cap 150 MG PO BID Sodium Bicarbonate (Sodium Bicarbonate) 650 Mg Tab 1950 MG PO TID Admission Information HPI (per Admitting provider): 61 year old male admitted after having tunnelled dialysis catheter placed with subsequent dialysis treatment. Noted this was the patient's first dialysis treatment. Patient has been advised for the past several months to start dialysis however has been deferring. At the time of my exam, patient is sitting on the edge of the bed, no complaints. He does note increasing BLLE edema over the past few days. He denies chest pain and shortness of breath. No lightheadedness or dizziness. He denies abdominal pain, nausea, diarrhea, and vomiting. No fever or chills. Upon arrival to the floor, patient is found to have blood pressure of 210/98. Post procedure H/H is 6.3/19.5. Patient adamant on leaving early in the morning to go to work. Past Medical/Surgical History Medical Problems: (1) Anemia due to chronic kidney disease Status: Chronic (2) ESRD (end stage renal disease) Status: Chronic (3) GI bleed Status: Resolved (4) HTN (hypertension) Status: Chronic (5) NSTEMI (non-ST elevated myocardial infarction) Permanent Comment: due to severe anemia Status: Resolved Surgical Problems: (1) H/O colonoscopy Status: Chronic (2) History of dental surgery Status: Chronic (3) History of esophagogastroduodenoscopy (EGD) Status: Chronic Family History Diabetes mellitus FATHER FH: CHF (congestive heart failure) FATHER Hypertension FATHER Social History Smoking Status: Former Smoker Alcohol Use: none Immunizations History of Influenza Vaccine: Yes Influenza Vaccine Date: Jun 19, 2016 Multi-Drug Resistant Organisms History of MDRO: No Allergies Coded Allergies: No Known Allergies (Unverified , 10/14/16) Home Medications Scheduled Amlodipine (Norvasc), 5 MG PO BID Borage (Borago Officinalis) (Borage 1000), 1,000 MG PO DAILY Calcitriol (Rocaltrol), 0.5 MCG PO QAM Calcium Carbonate (Tums), 1,000 MG PO HS Carvedilol (Carvedilol), 1 TAB PO BIDM Cholecalciferol (Vitamin D3), 2,000 INTER.UNIT PO QAM Cyanocobalamin (Vitamin B12), 250 MCG PO QAM Epoetin Carlos Alberto (Procrit), 10,000 UNITS SC WK Eszopiclone (Lunesta), 1 MG PO HS Folic Acid (Folvite), 1 TAB PO DAILY Hydralazine Hcl (Apresoline), 100 MG PO TID Polysaccharide Iron Complex (Ferric X-150), 150 MG PO BID Sevelamer Hydroch (Renagel), 2,400 MG PO TIDM Sodium Bicarbonate (Sodium Bicarbonate), 1,950 MG PO TID Sodium Polystyrene Sulfonate (Kayexalate Susp-Substitute), 15 GM PO DAILY Review of Systems 10 point review of systems was completed with the pertinent positives and negatives noted per the HPI Physical Exam Vital Signs Date Time Temp Pulse Resp B/P Pulse Ox O2 Delivery O2 Flow Rate FiO2 10/14/16 18:30 36.6 86 18 201/94 96 Room Air 10/14/16 18:00 36.5 82 16 210/98 97 Room Air 10/14/16 17:36 36.5 84 202/106 10/14/16 17:30 88 168/101 10/14/16 17:15 83 190/97 10/14/16 17:00 80 179/99 10/14/16 16:45 80 178/97 10/14/16 16:30 78 179/93 10/14/16 16:15 79 191/84 10/14/16 16:00 82 180/91 10/14/16 15:45 75 188/100 10/14/16 15:33 79 193/98 10/14/16 15:19 36.9 81 186/106 10/14/16 12:36 36.6 82 20 183/90 93 Room Air General Appearance: no apparent distress Head: normocephalic Eyes: normal inspection ENT: hearing grossly normal Neck: supple, no JVD Respiratory/Chest: no respiratory distress, + decreased breath sounds, + pertinent finding (tunnelled dialysis catheter in place to right chest, dressing bloody but intact) Cardiovascular: regular rate, rhythm, + pertinent finding (+2 edema BLLE) Abdomen/GI: normal bowel sounds, non tender, soft Extremities/Musculoskelatal: normal inspection, no calf tenderness Neurologic/Psych: no motor/sensory deficits, alert, normal mood/affect, oriented x 3 Skin: normal color, warm/dry Diagnostics Laboratory Results Results Past 24 Hours Test 10/14/16 12:17 10/14/16 17:37 10/14/16 19:05 Range/Units Hemoglobin 7.3 6.4 14.0-18.0 g/dL Hematocrit 22.4 19.5 42-52 % Sodium Level 143 136-145 mmol/L Potassium Level 4.5 3.5-5.1 mmol/L Chloride Level 102 98-107 mmol/L Carbon Dioxide Level 25 21-32 mmol/L Anion Gap 16.0 3-11 mmol/L Blood Urea Nitrogen 104 7-18 mg/dl Creatinine 23.00 0.60-1.40 mg/dl Est Creatinine Clear Calc Drug Dose 3.8 ml/min Estimated GFR () 2.1 Estimated GFR (Non- 1.8 BUN/Creatinine Ratio 4.5 10-20 Random Glucose 88 70-99 mg/dl Calcium Level 10.1 8.5-10.1 mg/dl Phosphorus Level 8.1 2.5-4.9 mg/dl Albumin 3.3 3.4-5.0 gm/dl Impression Assessment and Plan ESRD S/P TUNNELLED DIALYSIS CATHETER PLACEMENT - admitted to med/surg post procedure however BP significantly elevated and hgb 6.3 - will transfer to tele - s/p dialysis today - check PRP, EKG, and CXR - nephro on board - continue routine renal medications ANEMIA - hgb 6.3; likely acute on chronic anemia due to blood loss from tunnelled catheter placement today - baseline hgb ~ 8-9 - will transfuse with 2 units PRBC HYPERTENSIVE URGENCY - Hydralazine 10mg IV x1, resume home medications of PO Hydralazine, Amlodipine , and Carvedilol - PRN Hydralazine DVT PROPHYLAXIS - SCDs DISPO - In my clinical judgment this beneficiary meets acute admission criteria, established by [facility], that includes being hospitalized through two midnights. - Patient adamant about leaving early in the morning to be able to go to work - discussed with patient that he likely will not be safe to be discharged early in the morning due to anemia and significantly elevated blood pressure. ADDENDUM: I have seen and examined the patient and discussed the case with the provider above and Dr. Angeles. I agree with the care plan as stated. He came from same day surgery for initiation of dialysis which was considered emergent and life-saving. 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 After HD, H/H revealed significant anemia requiring 2 units of blood to be given. He was consented, and LR irradiated blood was ordered in the setting of possible future renal transplant. His BP remained high (>200 systolic) and was still elevated to 180s after IV and PO meds given tonight. The patient is comfortable on exam and asymptomatic but is stating he will leave this hospital at 0730 no matter what. He and his were apprised of the dangers in leaving AMA (including driving to [place] and treating patients in his condition), but that if they chose this option, his hospital stay may not be paid for. He verbalized understanding. Post-op his cath site was oozing, but this stopped after pressure bandage was applied. Coags were normal, baseline CXR prior to blood product administration revealed no active disease. EKG was SR with LVH. Blood is pending overnight with a post- transfusion H/H in the morning. Nephro is aware of overnight plan. Radha Pedroza DO (Hospitalist) Level of Care Telemetry Resuscitation Status FULL RESUSCITATION VTE Prophylaxis VTE Risk Assessment Done? Y/N: Yes Risk Level: Moderate Given or contraindicated: SCD's (anemia) <Electronically signed by Lazara BUSTAMANTE> <Electronically signed by Radha Pedroza DO> Physical Exam (per Admitting): General Appearance: no apparent distress Head: normocephalic Eyes: normal inspection ENT: hearing grossly normal Neck: supple, no JVD Respiratory/Chest: no respiratory distress, + decreased breath sounds, + pertinent finding (tunnelled dialysis catheter in place to right chest, dressing bloody but intact) Cardiovascular: regular rate, rhythm, + pertinent finding (+2 edema BLLE) Abdomen/GI: normal bowel sounds, non tender, soft Extremities/Musculoskelatal: normal inspection, no calf tenderness Neurologic/Psych: no motor/sensory deficits, alert, normal mood/affect, oriented x 3 Skin: normal color, warm/dry Hospital Course ESRD S/P Right Perm Catheter Placement on 10/14/16 (Right Internal Jugular Vein) -Creatinine was very high at >23 and BUN >100 -Appreciate Nephrology input - s/p dialysis on 10/14/16 and ongoing dialysis today and tomorrow -Creatinine is improving HYPERTENSIVE URGENCY-Accelerated HTN -H/O HTN and complicated by Renal failure - Hydralazine 10mg IV x1, resume home medications of PO Hydralazine, Amlodipine , and Carvedilol -BP is trending down ANEMIA of CKD -Has been getting Procrit and will need Periodic Blood Transfusion - hgb 6.3; likely acute on chronic anemia due to blood loss from tunnelled catheter placement today - baseline hgb ~ 8-9 - received 1 unit yesterday H/O NSTEMI-pt does not believe Demand Ischemia -complicated by very Low Hb No acute issue now DVT PROPHYLAXIS -H/O GI bleed - SCDs DISPO Likely to be discharged after HD today Total time spent on discharge = 35 minutes This includes examination of the patient, discharge planning, medication reconciliation, and communication with other providers. Discharge Instructions Admission Reason for Admission: End Stage Renal Disease Discharge Discharge Diagnosis / Problem: Hypertensive Urgency,ESRD on HD Discharge Goals Goal(s): Prevent Disease Progression Activity Recommendations Activity Limitations: resume your previous activity . Instructions / Follow-Up Instructions / Follow-Up DR Vianney Lynch on 10/20/16 at 12:10.Continue Hemodialysis Current Hospital Diet Patient's current hospital diet: Renal Diet, Low Potassium Diet (2g K) Discharge Diet Recommended Diet: Low Sodium Diet (2gm Na), Renal Diet Fluid Restriction: 1500 ml (6 cups) Procedures Procedures Performed: Insertion of Perm Catheter, Right Internal Jugular Approach, Ultrasound Localization of Right Internal Jugular Vein, Fluoro for positioning, Moderate Sedation from 5326-2625 Pending Studies Studies pending at discharge: no Medical Emergencies . Who to Call and When: Medical Emergencies: If at any time you feel your situation is an emergency, please call 911 immediately. . Non-Emergent Contact Non-Emergency issues call your: Primary Care Provider . Past History Medical & Surgical History: (1) Anemia due to chronic kidney disease (2) ESRD (end stage renal disease) (3) HTN (hypertension) (4) History of dental surgery (5) History of esophagogastroduodenoscopy (EGD) . "Provider Documentation" section prepared by Caio Louis. VTE Core Measure Inpt VTE Proph given/why not?: SCD's (anemia) <Electronically signed by Caio Louis M.D.> Additional Copies To Emily Lynch M.D.
[2016-10-20] MEDS ORDERED: ESZO1TAB6 PO (09:06)
[2016-10-20] MEDS ORDERED: CARV12.52 PO (09:06)
[2016-10-28] MEDS ORDERED: OXYC-57 PO (14:06)
--- NOTE | 2016-11-05 14:22 | DIAGNOSTIC IMAGING REPORT ---
DATE OF PROCEDURE: 10/14/2016 DATE OF PROCEDURE: 10/14/2016. PREOPERATIVE DIAGNOSIS: End-stage renal disease. POSTOPERATIVE DIAGNOSIS: Same. PROCEDURE: 1. Insertion of right internal jugular vein PermCath. 2. Ultrasound localization of the internal jugular vein. 3. Fluoroscopic imaging for positioning. 4. Conscious moderate sedation 16 minutes. SURGEON: Dr. Boyce. ANESTHETIC: Local with conscious sedation. PROCEDURE INDICATIONS: The patient is a 61-year-old gentleman with end-stage renal disease in need of dialysis. PermCath was recommended. He understood the risks, options and benefits and agreed to have this procedure. PROCEDURE: The patient was taken to the angiogram suite and placed in supine position. After right side of the neck and chest wall were prepped and draped in a sterile manner, local anesthetic was administered. Ultrasound was used to locate the internal jugular vein. It was of good caliber, compressed easily and was patent. The internal jugular vein was then punctured under ultrasound guidance. Wire was then passed centrally and placed in the inferior vena cava from above. A stab wound was made in the anterior chest wall and 19 cm PermCath was inserted through the stab wound in the chest wall and brought out through the puncture site in the neck. The puncture site was then dilated until 14 Kazakh peel away sheath was inserted. The catheter was inserted through the peel away sheath and the peel away sheath removed. Tip of the catheter laid in the distal superior vena cava. Both ports aspirated and flushed easily. They were then instilled with heparin. The catheter was sutured to the chest wall with nylon sutures. The puncture site in the neck was closed with a 4-0 Vicryl subcuticular suture and Dermabond for a dressing. Dressings were then placed on the catheter and the patient left the angio suite in good condition and tolerated the procedure well.
[2016-11-20] MEDS ORDERED: CRD200 PO (13:23)
[2016-11-20] MEDS ORDERED: CMD5 PO (13:25)
[2016-12-09] MEDS ORDERED: LEVO-17 PO (06:57)
[2016-12-18] MEDS ORDERED: ASPI81CH2 PO (13:16)
[2016-12-18] MEDS ORDERED: PRLSR20 PO (13:16)
[2017-04-28] MEDS ORDERED: CALC500C3 PO ×2 (13:31)
[2017-04-28] MEDS ORDERED: BND25 PO (13:33)
[2017-04-28] MEDS ORDERED: CINA0.42 PO (13:34)
[2017-06-02] MEDS ORDERED: CARV12.5 PO (11:36)
[2017-06-02] MEDS ORDERED: SUCR5CHW PO ×2 (11:36)
[2017-06-02] MEDS ORDERED: VELPHORO PO ×2 (11:36)
[2017-06-02] MEDS ORDERED: ALLO100T PO (11:36)
[2017-06-02] MEDS ORDERED: HYDR100T12 PO (11:36)
[2017-06-02] MEDS ORDERED: FURO80TA63 PO (11:36)
[2017-06-02] MEDS ORDERED: AMIO200T4 PO (11:36)
[2017-06-02] MEDS ORDERED: MAGNESIUM PO (11:36)
[2017-06-02] MEDS ORDERED: B-CO1CAP17 PO (11:36)
[2017-06-02] MEDS ORDERED: PRED10TA PO (11:37)
== END 2016-10-15 18:13 | disposition home or self-care (01) | DRG 304 ==
LOC: ENRESERVDT → ENRESERVTM → C.ACU 11:49 → C.MSN 13:45 → C.2T 20:30
PROVIDERS: ADMIT Hospitalist; ATTEND Internal Medicine
PROC: 05HM33Z Insertion of Infusion Device into Right Internal Jugular Vein, Percutaneous Approach (ICD-10-PCS; principal; 2016-10-14 12:00)
DX: I16.0 Hypertensive urgency (principal); N18.6 End stage renal disease; D62 Acute posthemorrhagic anemia; I24.8 Other forms of acute ischemic heart disease; I25.10 Atherosclerotic heart disease of native coronary artery without angina pectoris; I25.2 Old myocardial infarction; L29.9 Pruritus, unspecified; N25.0 Renal osteodystrophy; R79.89 Other specified abnormal findings of blood chemistry; Z87.891 Personal history of nicotine dependence; I13.11 Hypertensive heart and chronic kidney disease without heart failure, with stage 5 chronic kidney disease, or end stage renal disease; Z99.2 Dependence on renal dialysis; Z79.899 Other long term (current) drug therapy

== ENCOUNTER → 2016-10-14 | Outpatient (CLI) | payer OTHER ==
[2016-10-14] VITALS (8 sets, daily range): BP systolic 177–198; BP diastolic 88–96; PULSE 76–81; TEMP 36.4; O2SAT 92–95
[~2016-10-14] MED LIST changes: +ALLO100T PO; +AMIO200T4 PO; +ASPI81CH2 PO; +B-CO1CAP17 PO; +BND25 PO; +CALC500C3 PO; +CALC667C4 PO; +CARV12.5 PO; +CARV12.52 PO; +CINA0.42 PO; +CMD5 PO; +CRD200 PO; +CRG125 PO; +CRG3125 PO; +EPGI2M INJ; +ESZO1TAB6 PO; +FURO80TA63 PO; +HYDR100T12 PO; +LEVO-17 PO; +MAGNESIUM PO; +MOME6000 NAE; +NURSING VERBAL MED ORDER ONE; +OXYC-57 PO; +PATI1POW PO; +PRED10TA PO; +PRLSR20 PO; +SEVE1TAB PO; +SEVE800T7 PO; +SUCR5CHW PO; +VELPHORO PO; +VNTHFA/IN INH; +[UNRECOGNIZED DRUG - CODE] PO; +[UNRECOGNIZED DRUG - CODE] PO; +[UNRECOGNIZED DRUG - CODE] PO
[2016-10-14 14:47] LABS: HEPATITIS B AB NEG
== END | disposition home or self-care (01) ==
LOC: C.LABSPEC 12:53
PROVIDERS: ATTEND Internal Medicine
DX: N18.6 End stage renal disease (principal)

== ENCOUNTER 2016-10-28 11:32 | Day surgery (SDC) | payer OTHER ==
[2016-10-20 09:06] VITALS: BMI 28.0
[~2016-10-28] VITALS: Ht 175.3 cm; Wt 94.4 kg
--- NOTE | 2016-10-28 10:08 | History and Physical ---
History & Physical Date of Service Oct 28, 2016. History & Physical Chief Complaint End stage renal disease History of Present Illness The patient is a 61 year old male with end stage renal disease now requiring dialysis. He had a permcath placement and now admitted for insertion of a CAPD catheter. He has a history of hypertension. Allergies Coded Allergies: No Known Allergies (Unverified , 09/09/16) Home Medications Scheduled Amlodipine (Norvasc), 5 MG PO BID Borage (Borago Officinalis) (Borage 1000), 1,000 MG PO DAILY Calcitriol (Rocaltrol), 0.5 MCG PO QAM Calcium Carbonate (Tums), 1,000 MG PO HS Carvedilol (Carvedilol), 1 TAB PO BIDM Cholecalciferol (Vitamin D3), 2,000 INTER.UNIT PO QAM Cyanocobalamin (Vitamin B12), 250 MCG PO QAM Epoetin Carlos Alberto (Procrit), 10,000 UNITS SC WK Eszopiclone (Lunesta), 1 MG PO HS Folic Acid (Folvite), 1 TAB PO DAILY Hydralazine Hcl (Apresoline), 100 MG PO TID Polysaccharide Iron Complex (Ferric X-150), 150 MG PO BID Sevelamer Hydroch (Renagel), 2,400 MG PO TIDM Sodium Bicarbonate (Sodium Bicarbonate), 1,950 MG PO TID Sodium Polystyrene Sulfonate (Kayexalate Susp-Substitute), 15 GM PO DAILY Problem List Medical Problems: (1) Anemia in CKD (chronic kidney disease) (2) CKD (chronic kidney disease) stage 5, GFR less than 15 ml/min (3) ESRD (end stage renal disease) (4) HTN (hypertension) (5) Hyperkalemia Surgical Problems: (1) H/O colonoscopy (2) History of dental surgery (3) History of esophagogastroduodenoscopy (EGD) (4) [place] teeth extracted Surgical / Medical History Past Medical/Surgical History: Cancer (basal cell), Hypertension, Kidney Disease Family History Diabetes mellitus FATHER FH: CHF (congestive heart failure) FATHER Hypertension FATHER Social History Smoking Status: Former Smoker Hx Alcohol Use - Type & Amnt: Yes ROS: Vascular H&P v2 Review of Systems Constitutional: + problem reported (pruritis), No chills, No diaphoresis, No fatigue, No fever, No malaise, No sweats, No weakness, No weight gain, No weight loss Respiratory: No ESPINO, No PND, No cough, No cyanosis, No dyspnea, No hemoptysis, No orthopnea, No problem reported, No short of breath, No sputum production, No stridor, No wheezing Cardiovascular: + edema (generalized), No chest pain, No chest pressure, No chest tightness, No cyanosis, No diaphoresis, No intermittent claudication, No lightheadedness, No mumur, No orthopnea, No palpitations, No paroxysmal nocturnal dyspnea, No problem reported, No syncope Gastrointestinal: No abdominal pain, No anorexia, No appetite changes, No belching, No constipation, No diarrhea, No dysphagia, No flatulence, No food intolerance, No heartburn, No hematemesis, No hematochezia, No hemorrhoids, No indigestion, No nausea, No problem reported, No rectal bleeding, No stool changes, No vomiting Genitourinary - Male: No difficulty urinating, No hematuria, No impotence, No penile discharge, No penile itching, No problem reported, No rash, No testicular pain, No testicular swelling Musculoskeletal: No back pain, No gout, No joint pain, No joint swelling, No muscle pain, No muscle stiffness, No muscle weakness, No neck pain, No problem reported Neurologic: No LOC, No dizziness, No headache, No lethargy, No memory loss, No numbness, No paresthesia, No pre-existing deficit, No problem reported, No seizures, No tics, No tingling, No tremors, No vertigo, No weakness Psychiatric: No alcohol abuse, No anxiety, No auditory hallucinations, No depression, No drug abuse, No homicidal ideation, No mood changes, No problem reported, No suicidal ideation, No visual hallucinations Physical Ex: Vascular H&P v2 Physical Exam Constitutional: General Apperance: heathly-appearing, well-nourished, well-developed Level of Distress: mild distress Ambulation: ambulating normally Psychiatric: Mental Status: active & alert, normal mood, normal affect Orientation: oriented except where noted, to time, to place, to person Memory: recent memory normal, remote memory normal Lungs: Auscultation: breath sounds normal Cardiovascular: Heart Auscultation: RRR Peripheral Pulses: Radial Pulse: normal on the left, normal on the right Femoral Pulse: normal on the left, normal on the right Abdomen: Inspection & Palpation: soft Musculoskeletal: normal, normal strength (5/5 throughout), normal tone Extremities: Upper Right: no cyanosis, no edema, no varicosities, no palpable cord, no clubbing, no ulcers, no mottling Upper Left: no cyanosis, no edema, no varicosities, no palpable cord, no clubbing, no ulcers, no mottling Lower Right: edema Lower Left: edema Neurologic: Cranial Nerves: grossly intact Sensation: grossly intact A&P: Vascular H&P v2 Assessment and Plan Imp: End stage renal disease Plan: Patient here for insertion of a CAPD catheter. I have discussed the risks options and benefits of the procedure with the patient. The patient understands the risks options and benefits and agrees to the procedure.
[~2016-10-28 11:32] MED LIST changes: -CALC0.5C2 PO; -CALC500C3 PO; +CARV12.52 PO; -CEFAZOLIN 1000MG/55 ML D5W IV SCH; -CHOL2000 PO; -CRG3125 PO; -D5W AND 1/4NSS 1,000 ML IV SCH; -SODI650T8 PO; +SODIUM CHLORIDE 0.9% 1000ML 1,000 ML IV SCH; -[UNRECOGNIZED DRUG - CODE] PO; -[UNRECOGNIZED DRUG - CODE] PO
[2016-10-28] MEDS ORDERED: HEPARIN SOD (PORCINE) 5000 UNIT/ML 1 ML VIAL IV ONE (11:33)
[2016-10-28] MEDS ORDERED: BUPIVACAINE/EPINEPHRINE 0.5% MPF 1:200,000 30 ML VIAL ONE (11:50)
[2016-10-28] MEDS ORDERED: LIDOCAINE HCL 1% 20 ML VIAL ONE (11:50)
[2016-10-28] MEDS ORDERED: HEPARIN SOD (PORCINE) 1000 UNIT/ML 10 ML VIAL ONE (11:51)
[2016-10-28] MEDS ORDERED: SODIUM BICARBONATE 8.4% INJ 50 MEQ/50 ML VIAL ONE (11:51)
--- NOTE | 2016-10-28 11:55 | History & Physical Bridge Note ---
H&P Re-Evaluation Bridge Note: I have examined the patient, reviewed the History & Physical and in the interval since the performance of the History & Physical I have noted the following changes of clinical significance: No changes noted
[2016-10-28] MEDS ORDERED: PROPOFOL IV EMULSION 10 MG/ML 20 ML VIAL IV ONE ×2 (12:04→13:55)
[2016-10-28] MEDS ORDERED: LIDOCAINE HCL 2% 2 ML VIAL (20MG/ML) ONE (12:04)
[2016-10-28] MEDS ORDERED: DEXAMETHASONE SOD INJ 4 MG/ML VIAL ONE (12:04)
[2016-10-28] MEDS ORDERED: ONDANSETRON INJ 2 MG/ML 2 ML VIAL ONE (12:04)
[2016-10-28] MEDS ORDERED: FENTANYL CITRATE INJ 50 MCG/1 ML 2 ML VIAL ONE (12:04)
[2016-10-28] MEDS ORDERED: MIDAZOLAM HCL 1 MG/ML 2ML VIAL ONE ×2 (12:04→13:24)
[2016-10-28 12:25] VITALS: BP_SYST 169; BP_SYST 179; BP_DIAS 84; BP_DIAS 90; PULSE 77; TEMP 37.1; O2SAT 99; Ht 175.3 cm; Wt 94.4 kg
[2016-10-28 13:10] LABS: BUN/CREATININE RATIO 5.3 (10-20); CALCIUM 7.8 mg/dl (8.5-10.1); CREATININE 6.4 mg/dl (0.60-1.40); POTASSIUM 4.3 mmol/L (3.5-5.1)
[2016-10-28] MEDS ORDERED: KETAMINE HCL INJ 50 MG/ML 10 ML VIAL ONE (13:30)
--- NOTE | 2016-10-28 14:05 | [facility] Post Operative Brief Note ---
Immediate Operative Summary Operative Date Oct 28, 2016. Pre-Operative Diagnosis End Stage Renal Disease Post-Operative Diagnosis Same as preop Procedure(s) Performed Peritoneal Dialysis Catheter Insertion Surgeon Dr. Boyce Base Draw Operator Surgeon(s) none Estimated Blood Loss 5 ml Findings good inflow and outflow Specimens None per surgeon Anesthesia MAC Complication(s) None Disposition Recovery Room / PACU
[2016-10-28] MEDS ORDERED: OXYC-57 PO (14:06)
[2016-10-28] MEDS ORDERED: ORM MISCELLANEOUS MED XX ONE (14:07)
--- NOTE | 2016-10-28 14:12 | Discharge Instructions ---
Discharge Instructions Visit Reason for Visit: End Stage Renal Disease Discharge Discharge Diagnosis / Problem: End stage renal disease Activity Recommendations Activity Limitations: per Instructions/Follow-up section Anesthesia . Post Anesthesia Instructions: If you have had General Anesthesia or IV Sedation: * Do not drive today. * Resume driving when surgeon permits. * Do not make important decisions or sign legal documents today. * Call surgeon for: 1. Temperature elevations greater than 101 degrees F. 2. Uncontrollable pain. 3. Excessive bleeding. 4. Persistent nausea and vomiting. 5. Medication intolerance (nausea, vomiting or rash). * For nausea and vomiting use only clear liquids such as: tea, soda, bouillon until nausea subsides, then gradually increase diet as tolerated. * If you have any concerns or questions, call your surgeon's office. If physician is unavailable and it is an emergency, call 911 or go to the nearest emergency room. . Instructions / Follow-Up Instructions / Follow-Up Make an appointment with the peritoneal dialysis nurses for dressing change Call [phone] to schedule a follow up appointment if one not already scheduled. ACTIVITY RECOMMENDATIONS: See Above SPECIAL CARE INSTRUCTIONS: Call your doctor if: * Temperature above 101 degrees * Pain not relieved by pain medicine ordered * There is increased drainage or redness from any incision * You have any unanswered questions or concerns. Diet Recommendations Recommended Home Diet: resume previous diet Procedures Procedures Performed: Peritoneal Dialysis Catheter Insertion Pending Studies Studies pending at discharge: no Medical Emergencies . Who to Call and When: Medical Emergencies: If at any time you feel your situation is an emergency, please call 911 immediately. . Non-Emergent Contact Non-Emergency issues call your: Surgeon . . "Provider Documentation" section prepared by Narciso Boyce. [place] Drug Monitoring Program Search Results: no issues identified
[2016-10-28] MEDS ORDERED: ATROPINE SULFATE 0.1 MG/ML 5ML SYR IV PRN (14:15)
[2016-10-28] MEDS ORDERED: EpHEDrine SULFATE INJ 50 MG/ML AMP IV PRN (14:15)
[2016-10-28] MEDS ORDERED: FENTANYL CITRATE INJ 50 MCG/1 ML 2 ML VIAL IV PRN (14:15)
[2016-10-28 14:40] VITALS: BP_SYST 177; BP_DIAS 85; BP_DIAS 95; PULSE 81; TEMP 36.6; TEMP 36.7; O2SAT 97; O2SAT 98
--- NOTE | 2016-10-28 14:56 | Anesthesiology Progress Note ---
Anesthesia Post Op Note Date & Time Oct 28, 2016 at 14:56 Vital Signs Vital Signs Past 12 Hours Date Time Temp Pulse Resp B/P Pulse Ox O2 Delivery O2 Flow Rate FiO2 10/28/16 14:40 36.7 81 20 177/85 98 Room Air 10/28/16 14:35 36.6 79 22 177/95 97 Room Air 10/28/16 14:25 80 18 177/89 96 Room Air 10/28/16 14:15 78 14 157/109 95 Room Air 10/28/16 14:09 36.5 82 16 175/103 97 Room Air 10/28/16 12:25 37.1 77 20 169/84 99 Room Air 179/90 Notes Mental Status: alert / awake / arousable, participated in evaluation Pt Amnestic to Procedure: Yes Nausea / Vomiting: adequately controlled Pain: adequately controlled Airway Patency, RR, SpO2: stable & adequate BP & HR: stable & adequate Hydration State: stable & adequate Anesthetic Complications: no major complications apparent
--- NOTE | 2016-10-28 15:03 | OPERATIVE REPORT ---
DATE OF OPERATION: 10/28/2016 PREOPERATIVE DIAGNOSIS: End-stage renal disease. POSTOPERATIVE DIAGNOSIS: Same. PROCEDURE: Insertion of chronic ambulatory peritoneal dialysis catheter. SURGEON: Dr. Boyce. ANESTHETIC: MAC. PROCEDURE INDICATIONS: The patient is a 61-year-old male with end-stage renal disease on dialysis at this time through a PermCath in need of a permanent access. A PD catheter is recommended. He understood the risks, options and benefits and agreed to have this procedure. DESCRIPTION OF PROCEDURE: The patient was taken to the operating room and placed in supine position. After the abdomen was prepped and draped in a sterile manner, local anesthetic was administered. A small midline incision was made below the umbilicus. This was carried down to the midline fascia. A danilo was made in the midline fascia and the peritoneum was identified. It was pulled up to the abdominal wound. A small danilo was made in the peritoneum and a catheter was passed inferior into the pelvis. At that point, it was flushed with hep saline. Almost all of it came back in the syringe. There was little respiratory variation. We therefore pulled the catheter and reinserted it again into the pelvis. At this point, we had a good respiratory variation. The peritoneum was closed around the catheter cuff using 3-0 Vicryl. The fascia was close using 0 Prolene suture. Once this was completed, it was about through a separate stab wound in the left side of the abdomen. The catheter was then flushed with a bag of saline with bicarb. It ran in extremely easily and it all came out in outflow. Outflow was very rapid. At that point, adequate hemostasis was seen in the wound and the wound was closed in the usual fashion using a running 3-0 Vicryl suture for subcutaneous layer and a 4-0 subcuticular Vicryl suture for the skin edges. Dermabond was used for dressing. Sterile dressings were then applied to the wound and the patient left the operating room in satisfactory condition and tolerated the procedure well. I attest to the content of the Intraoperative Record and any orders documented therein. Any exceptio ns are noted below.
[2016-10-28] MEDS ORDERED: OXYCODONE/ACETAMINOPHEN 5-325 TAB ONE (15:09)
[2016-10-28 15:15] VITALS: BP 162/83; PULSE 81; O2SAT 99
[2016-10-28] MEDS ORDERED: OXYCODONE/ACETAMINOPHEN 5-325 TAB PO PRN (15:15)
[2016-10-28 15:45] VITALS: BP 162/81; PULSE 83; TEMP 36.6; O2SAT 99
[2016-11-20] MEDS ORDERED: CRD200 PO (13:23)
[2016-11-20] MEDS ORDERED: CMD5 PO (13:25)
[2016-12-09] MEDS ORDERED: LEVO-17 PO (06:57)
[2016-12-18] MEDS ORDERED: ASPI81CH2 PO (13:16)
[2016-12-18] MEDS ORDERED: PRLSR20 PO (13:16)
[2017-04-28] MEDS ORDERED: CALC500C3 PO ×2 (13:31)
[2017-04-28] MEDS ORDERED: BND25 PO (13:33)
[2017-04-28] MEDS ORDERED: CINA0.42 PO (13:34)
[2017-06-02] MEDS ORDERED: HYDR100T12 PO (11:36)
[2017-06-02] MEDS ORDERED: MAGNESIUM PO (11:36)
[2017-06-02] MEDS ORDERED: SUCR5CHW PO ×2 (11:36)
[2017-06-02] MEDS ORDERED: B-CO1CAP17 PO (11:36)
[2017-06-02] MEDS ORDERED: VELPHORO PO ×2 (11:36)
[2017-06-02] MEDS ORDERED: ALLO100T PO (11:36)
[2017-06-02] MEDS ORDERED: FURO80TA63 PO (11:36)
[2017-06-02] MEDS ORDERED: AMIO200T4 PO (11:36)
[2017-06-02] MEDS ORDERED: CARV12.5 PO (11:36)
[2017-06-02] MEDS ORDERED: PRED10TA PO (11:37)
== END 2016-10-28 16:20 | disposition home or self-care (01) ==
LOC: C.ACU 11:32
PROVIDERS: ATTEND Surgery Vascular Surgery
DX: N18.6 End stage renal disease (principal); I12.0 Hypertensive chronic kidney disease with stage 5 chronic kidney disease or end stage renal disease; D63.1 Anemia in chronic kidney disease; Z99.2 Dependence on renal dialysis; Z98.890 Other specified postprocedural states

== ENCOUNTER 2016-11-18 00:55 | Inpatient (IN) | payer OTHER ==
[~2016-11-18] VITALS: Ht 175.3 cm; Wt 96.8 kg
[2016-11-18] VITALS (26 sets, daily range): BP systolic 110–189; BP diastolic 63–104; PULSE 77–149; TEMP 36.6–37.4; O2SAT 93–97; Ht 175.3 cm; Wt 96.8 kg
[~2016-11-18 00:55] MED LIST changes: -CEFAZOLIN 2000 MG/60 ML D5W IV SCH; -CYAN100020 PO; -FOLI1TAB7 PO; -HYDR-4717 PO; +OXYC-57 PO; -SODIUM CHLORIDE 0.9% 1000ML 1,000 ML IV SCH; -[UNRECOGNIZED DRUG - CODE] PO
[2016-11-18] MEDS ORDERED: MoRPHine SULFATE 4 MG/ML 1 ML CARP\\VIAL IV STA (01:08)
[2016-11-18] MEDS ORDERED: ONDANSETRON INJ 2 MG/ML 2 ML VIAL IV STA (01:08)
[2016-11-18 01:19] LABS: HEMATOCRIT 32.3 % (42-52); MEAN CORPUSCULAR HEMOGLOBIN 31.5 pg (25-34); MEAN CORPUSCULAR HGB CONC 33.1 g/dl (32-36); MEAN PLATELET VOLUME 8.4 fL (7.4-10.4); PLATELET COUNT 222 K/uL (130-400); WHITE BLOOD COUNT 11.63 K/uL (4.8-10.8)
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
[2016-11-18 01:42] LABS: BASO % 0.2 %; BASO ABS # 0.02 K/uL (0-0.2); COMPLETE YES; EOS % 1.1 %; IG% 0.3 %; LYMPH % 6.5 %; LYMPH ABS # 0.76 K/uL (1.2-3.4); MONO % 11.8 %; NEUT % 80.1 %
[2016-11-18] MEDS ORDERED: SEVE800T7 PO ×2 (01:52)
[2016-11-18] MEDS ORDERED: B-CO1CAP17 PO (01:52)
[2016-11-18 02:04] LABS: BUN/CREATININE RATIO 6.7 (10-20); CALCIUM 7.2 mg/dl (8.5-10.1); POTASSIUM 6.3 mmol/L (3.5-5.1)
[2016-11-18] MEDS ORDERED: NovoLIN-R INSULIN PER UNIT CHARGE IV STA (02:06)
[2016-11-18] MEDS ORDERED: SODIUM POLYST. SULF SUSP 15G/60ML PO STA (02:06)
[2016-11-18] MEDS ORDERED: DEXTROSE 25% 250 MG/ML 10 ML SYR IV STA (02:06)
[2016-11-18] MEDS ORDERED: CALCIUM GLUCONATE 10% 10 ML VIAL IV STA (02:06)
[2016-11-18] MEDS ORDERED: ASPIRIN 81 MG CHEW PO STA (02:09)
[2016-11-18] MEDS ORDERED: SODIUM BICARB 8.4% INJ 50 MEQ/50 ML SYR IV SCH (02:29)
[2016-11-18 02:43] LABS: PARTIAL THROMBOPLASTIN RATIO 0.9
[2016-11-18 03:52] LABS: THYROID STIMULATING HORMONE 1.18 uIu/ml (0.300-4.500)
[2016-11-18] MEDS ORDERED: ALBUT/IPRATROP 3MG/0.5MG NEB 3 ML VIAL INH STA (04:03)
[2016-11-18] MEDS ORDERED: DOXYCYCLINE HYCLATE 100 MG CAP PO SCH (04:03)
[2016-11-18] MEDS ORDERED: AMLODIPINE BESYLATE 5 MG TAB PO SCH (04:03)
[2016-11-18] MEDS ORDERED: CARVEDILOL 12.5 MG TAB PO SCH (04:03)
[2016-11-18] MEDS ORDERED: IV FLUIDS COMPLETED PRN (04:15)
[2016-11-18] MEDS ORDERED: ALBUT/IPRATROP 3MG/0.5MG NEB 3 ML VIAL INH PRN (04:15)
[2016-11-18] MEDS ORDERED: ONDANSETRON INJ 2 MG/ML 2 ML VIAL IV PRN (04:15)
[2016-11-18] MEDS ORDERED: NITROGLYCERIN 0.4 MG SL PER TAB CHARGE SL PRN (04:15)
[2016-11-18] MEDS ORDERED: SEVELAMER HYDROCH 800 MG TAB PO PRN (04:15)
[2016-11-18] MEDS ORDERED: OXYCODONE/ACETAMINOPHEN 5-325 TAB PO PRN (04:15)
[2016-11-18] MEDS ORDERED: LORAZEPAM 2 MG/ML 1 ML VIAL IV PRN (04:15)
[2016-11-18] MEDS ORDERED: HYDROmorphone INJ 0.5 MG/0.5 ML SYR IV PRN (04:15)
[2016-11-18] MEDS ORDERED: ACETAMINOPHEN 325 MG TAB PO PRN (04:15)
[2016-11-18] MEDS: HEPARIN SOD 5000 UNIT/0.5 ML CARP SQ SCH ×2 (06:36→16:01)
--- NOTE | 2016-11-18 06:44 | DIAGNOSTIC IMAGING REPORT ---
BILATERAL LOWER EXTREMITY VENOUS DOPPLER HISTORY: Pain. Edema. leg swelling COMPARISON STUDY: None. FINDINGS: There is normal compressibility, flow, and augmentation within the bilateral lower extremity deep venous systems. IMPRESSION: No DVT within the right or left lower extremity. Electronically signed by: Aj jOeda M.D. 11/18/2016 6:42 AM Dictated Date/Time: 11/18/2016 6:42 AM
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
--- NOTE | 2016-11-18 07:21 | DIAGNOSTIC IMAGING REPORT ---
CHEST ONE VIEW PORTABLE CLINICAL HISTORY: Chest pain. COMPARISON STUDY: Chest radiograph October 14, 2016. FINDINGS: A dual lumen right internal jugular catheter is in place. There is mild enlargement of the cardiac silhouette. No pneumothorax is present. Mild bibasilar opacities favor atelectasis. There is pulmonary vascular congestion without overt pulmonary edema. There is a possible small left pleural effusion. IMPRESSION: 1. Bibasilar opacities which likely reflect atelectasis. 2. Pulmonary vascular congestion without overt pulmonary edema. 3. Mild enlargement of the cardiac silhouette. Electronically signed by: David Pena M.D. 11/18/2016 7:20 AM Dictated Date/Time: 11/18/2016 7:18 AM
--- NOTE | 2016-11-18 07:42 | DIAGNOSTIC IMAGING REPORT ---
CT OF THE ABDOMEN AND PELVIS WITHOUT CONTRAST CLINICAL HISTORY: Right sided abdominal pain. COMPARISON STUDY: No previous studies for comparison. TECHNIQUE: Axial images of the abdomen and pelvis were obtained without IV contrast. Images were reviewed in the axial, sagittal, and coronal planes. FINDINGS: Visualized portions of the chest demonstrate a small pericardial effusion. Subpleural opacities within visualized portions of the lungs suggest atelectasis. A right lower quadrant peritoneal dialysis catheter is in place. The catheter is located along the superior aspect of the bladder. No associated fluid collection is present. Evaluation of the abdomen and pelvis is suboptimal on this unenhanced exam. Unenhanced images of the liver, spleen, adrenal glands and pancreas are unremarkable. There is mild gallbladder distention without pericholecystic or peripancreatic infiltration. There is no biliary or pancreatic ductal dilatation. Several hypodense left renal lesions are suboptimally assessed on this exam but measure near water attenuation and may reflect cysts. There are no ureteral calculi. There are multiple left renal calculi, including staghorn type calculus within the lower aspect of the collecting system. There is mild left-sided collecting system dilatation. A mildly enlarged left para-aortic lymph node located at the level the left renal vein shown on image 39 of 103. This measures 1.3 cm in short axis diameter. There is no evidence for a bowel obstruction. Air is extensive atherosclerotic plaque. A dual lumen central venous catheter is partially imaged on this exam. There is mild bilateral perinephric infiltration. IMPRESSION: 1. Left-sided nephrolithiasis with staghorn type calculus within the lower aspect of the collecting system. Mild left collecting system dilatation. No ureteral calculi. 2. Peritoneal dialysis catheter in place. 3. Small pericardial effusion. 4. A few mildly enlarged para-aortic lymph nodes which are nonspecific. A follow-up CT of the abdomen could be obtained in 6 months to ensure stability. 5. Mild bilateral perinephric infiltration, a nonspecific finding. 7. Mild gallbladder distention. No pericholecystic infiltration. Electronically signed by: David Pena M.D. 11/18/2016 7:41 AM Dictated Date/Time: 11/18/2016 7:32 AM
[2016-11-18] MEDS: SEVELAMER HYDROCH 800 MG TAB PO SCH ×4 (07:51→17:05)
[2016-11-18] MEDS ORDERED: HEPARIN SOD (PORCINE) 1000 UNIT/ML 10 ML VIAL IV SCH (08:00)
[2016-11-18] MEDS ORDERED: EPOETIN ALFA 4000 UNITS/ML VIAL IV. ONE (08:00)
[2016-11-18] MEDS: HEPARIN SOD (PORCINE) 1000 UNIT/ML 10 ML VIAL IV SCH ×3 (08:00→10:00)
--- NOTE | 2016-11-18 13:04 | Cardiology Consultation ---
Cardiology Consultation Date of Service Nov 18, 2016. (Divine Waddell, NIK) Cardiology Consultation History of Present Illness: Dariel Grullon is a 61 year old male With history of hypertension, anemia , chronic kidney disease recently started dialysis treatments, noncompliance with medications and appointments. He was admitted to [facility] yesterday with complaints of chest pain, cough, weakness And right lower abdominal pain since peritoneal dialysis catheter placement several weeks ago. He missed his last dialysis session due to the weather. He was recently evaluated in the office by Dr. Mikey baker in September, as part of a pre renal transplant workup. He had an echocardiogram which demonstrated preserved LV function, no significant valvular disease, and no pericardial effusion. Stress test was recommended once patient had been established on dialysis. This has not yet been performed. Patient denies a cardiac history of coronary artery disease, arrhythmias, valvular disease. On review of records it appears the patient had type [address] segment elevation myocardial infarction while hospitalized in [place] in December,, which was felt to be due to demand ischemia in the setting of profound anemia, renal failure, and hypertension. An echocardiogram performed at time revealed left ventricular hypertrophy, with a small inferior wall motion abnormality preserved LV systolic function. Cardiac catheterization was Not completed at that time. At time of consult patient was evaluated during dialysis treatments. Upon questioning his chest pain symptoms , he replied "it is not my heart". Specific details are difficult to obtain due to patient 's sarcasm. Full ROS unable to be obtained. He notes cough x1 week. Chest pain is pleuritic in nature and worsens with deep breaths. No radiation. No associated shortness of breath. Review of Systems: SEE HPI Past Medical History: Anemia of chronic disease GI bleed Pancreatitis NSTEMI (non-ST elevated myocardial infarction) (HCC) ESRD (end stage renal disease) (HCC) Past Surgical History Dental surgery procedure nec Prior EGD and colonoscopy Recent HD and peritoneal dialysis catheter placement. Family History: Father with CHF, HTN. Brother AR/sudden age 42 Social History: . 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 Social history: Prior tobacco abuse, quitting in 2013. Allergies: No known Allergies Medications: Reported Home Medications Medications Dose Route/Sig Max Daily Dose Days Date Category Dose Instructions Nephrocaps (Vitamin B Complex/Vit C/Folic Acid) Cap 1 Cap PO QPM 11/18/16 Reported Renvela (Sevelamer Carbonate) 800 Mg Tab 800 Mg PO UD PRN 90 11/18/16 Reported Renvela (Sevelamer Carbonate) 800 Mg Tab 800 Mg PO TIDM 11/18/16 Reported Percocet 5MG/325MG (Oxycodone/Acetaminophen) Tab 1-2 Tablets PO Q4H PRN 10/28/16 Rx PAIN Coreg (Carvedilol) 12.5 Mg Tab 12.5 Mg PO BID 10/20/16 Reported Procrit (Epoetin Carlos Alberto) 2,000 Units Inj 10,000 Units INJ 3XWK 09/09/16 Reported GIVE ON TUESDAYS,THURSDAYS AND SATURDAYS IN DIALYSIS Norvasc (Amlodipine Besylate) 5 Mg Tab 5 Mg PO BID 04/14/16 Reported OBJECTIVE/PHYSICAL EXAMINATION: Last 8 Hrs Date Time Temp Pulse Resp B/P Pulse Ox O2 Delivery O2 Flow Rate FiO2 11/18/16 07:37 36.6 77 18 173/90 94 Room Air 11/18/16 05:30 36.8 80 20 179/102 97 Room Air 11/18/16 04:12 82 20 183/102 97 Room Air 11/18/16 02:57 79 16 184/109 99 Room Air 11/18/16 01:37 77 24 177/104 98 Room Air 11/18/16 01:15 97 Room Air 11/18/16 01:15 97 Room Air 11/18/16 01:09 84 11/18/16 00:57 36.7 81 18 180/98 93 Room Air General: no acute distress and stated age Eyes: conjunctiva are pink and non-injected, sclera clear Neck: normal jugular venous pulse, no hepatojugular reflux Chest: normal shape and normal respiratory effort Lungs: clear to auscultation and percussion Cardiac Exam: - regular heart sounds, no murmurs, rubs, or gallops Abdomen: abdomen soft, non-tender, no abnormal masses and no hepatosplenomegaly Musculoskeletal: no gait disturbance, no weakness Extremities: no edema and no cyanosis Neuro: grossly normal exam Psych: appropriate affect and insight. Data: EKG on admission: Normal sinus rhythm Minimal voltage criteria for LVH, may be normal variant Prolonged QT Abnormal ECG When compared with ECG of 14-OCT-2016 19:21, Non- specific change in ST segment in Lateral leads T wave inversion less evident in Lateral leads Echocardiogram reviewed from [facility] in September 2016 InterpretationSummary Theprimaryindicationafterreviewwasdeemedappropriateandtheexamination wasperformed. Comparedtolastavailablestudychangesarenotedasfollows:inferiorwall motionabnormalityhasresolved. NormalLVchambersizewithmildconcentricLVH. NormalLVsystolicfunctionwithoutregionalwallmotionabnormality,[id number]%. GradeIdiastolicdysfunction. Mildmitralannularcalcification. Severeleftatrialenlargement. IMPRESSION and PLAN: 61 year old male 1. Chest pain, atypical for ACS. Pleuritic in nature - possible pleurisy from acute bronchitis -negative cardiac enzymes -update 2D echo, small pericardial effusion on CT scan - 2. Abnormal EKG - chronic -likely to need ischemic work up as part of pre renal transplant evaluation 3. ESRD on HD - manage fluid status and electrolytes 4. Uncontrolled hypertension Await echo results. Titrate BP meds as tolerated. Treat fluid/volume status with HD. Likely needs outpatient stress echo for pre transplant team. Discussed with Dr. Del Toro. (Divine Waddell PA-C) CARDIOLOGY ATTENDING ADDENDUM: The patient was seen and personally examined. Agree with Divine Waddell PA-C's findings and plans as documented above. Pt. developed atrial fib with RVR post dialysis. Pleuritic chest pain with tiny pericardial effusion. Pt. most likely has uremic pericarditis. Just off dialysis. Given beta edith and now hypotensive. Will bolus with amiodarone and start a drip. Pt. hemog. was 4 recently without evidence of acute bleeding , due to chronic kidney disease. Will start iv heparin without bolus. Morphine for chest pain. (Urban Del Toro, DO)
[2016-11-18] MEDS ORDERED: METOPROLOL TARTRATE 1 MG/ML VIAL ONE (14:20)
[2016-11-18] MEDS ORDERED: METOPROLOL TARTRATE 1 MG/ML VIAL IV ONE (14:30)
[2016-11-18] MEDS ORDERED: NURSING VERBAL MED ORDER ONE (14:30)
[2016-11-18] MEDS ORDERED: AMIODARONE IV BOLUS / DRIP IV STA (16:03)
[2016-11-18 16:16] LABS: HEPATITIS B AB NEG
[2016-11-18] MEDS ORDERED: AMIODARONE / D5W 100 ML IV SCH (16:20)
[2016-11-18] MEDS ORDERED: AMIODARONE / D5W 200 ML IV SCH (16:30)
--- NOTE | 2016-11-18 17:41 | Progress Note ---
Subjective Date of Service: Nov 18, 2016. Subjective Pt evaluation today including: conversation w/ patient, physical exam, lab review, review of studies, conversation w/ gift consultant, review of inpatient medication list Saw/examined the patient in room 229 He came back from dialysis today and developed A. Fib with rapid ventricular response He also developed some chest pain/pressure Received morphine and IV lopressor, chest pain subsided HRs went from in the 160s to the 120s-130s - his blood pressure dropped from the 170s to the 110s Currently resting comfortably Problem List Medical Problems: (1) Abnormal EKG Status: Acute (2) Anemia Status: Acute (3) ARF (acute renal failure) Status: Acute (4) Chest wall pain Status: Acute (5) ESRD (end stage renal disease) Status: Chronic (6) Hyperkalemia Status: Acute (7) Pancreatitis Status: Acute (8) Renal failure Status: Acute (9) Upper GI bleed Status: Acute Review of Systems Constitutional: No chills, No fever Respiratory: + shortness of breath, No cough, No dyspnea at rest, No dyspnea on exertion, No hemoptysis, No sputum, No wheezing Cardiac: + chest pain, + palpitations, No edema Abdomen: No diarrhea, No nausea, No pain, No vomiting Medications Current Inpatient Medications Medications (Trade) Dose Ordered Sig/Aleksandra Route Start Time Stop Time Status Last Admin Dose Admin Miscellaneous (Iv Fluids Completed) 1 ea PRN PRN N/A 11/18/16 04:15 11/18/17 04:14 Amlodipine Besylate (Norvasc Tab) 5 mg BID PO 11/18/16 21:00 12/18/16 20:59 Carvedilol (Coreg Tab) 12.5 mg BID PO 11/18/16 21:00 12/18/16 20:59 Oxycodone/ Acetaminophen (Percocet 5-325mg Tab) pain not relieved by tyle... Q4H PRN PO 11/18/16 04:15 12/02/16 04:14 Vitamin B Complex/ Vit C/Folic Acid (Nephrocaps) 1 cap QPM PO 11/18/16 21:00 12/18/16 20:59 Sevelamer HCl (Renagel Tab) 800 mg UD PRN PO 11/18/16 04:15 12/18/16 04:14 Hydromorphone HCl (Dilaudid Inj) 0.5 mg Q3H PRN IV 11/18/16 04:15 12/02/16 04:14 11/18/16 14:17 0.5 MG Ondansetron HCl (Zofran Inj) 4 mg Q6H PRN IV 11/18/16 04:15 12/18/16 04:14 Lorazepam (Ativan Inj) 0.5 mg Q4H PRN IV 11/18/16 04:15 12/18/16 04:14 Doxycycline Hyclate (Vibramycin Cap) 100 mg BID PO 11/18/16 21:00 11/25/16 20:59 Albuterol/ Ipratropium 3 ml 3 ml Q2H PRN INH 11/18/16 04:15 12/18/16 04:14 Amiodarone HCL/ Dextrose 200 ml @ 33.3 mls/hr Q6H1M IV 11/18/16 16:30 11/18/16 22:30 Amiodarone HCL/ Dextrose (Nexterone / D5w) 200 ml @ 16.7 mls/hr [id number] IV 11/18/16 22:30 12/18/16 22:29 Sevelamer HCl 1600 mg 1,600 mg TIDM PO 11/18/16 16:45 12/18/16 16:44 11/18/16 17:05 1,600 MG Heparin Sodium/ Dextrose (Heparin 25,000 Unit/500ml D5W) 500 ml @ 29 mls/hr [id number] PRN IV 11/18/16 16:45 12/18/16 16:44 Objective Vital Signs Date Time Temp Pulse Resp B/P Pulse Ox O2 Delivery O2 Flow Rate FiO2 11/18/16 15:08 129 24 110/79 97 Nasal Cannula 2.0 11/18/16 14:30 132 26 125/63 97 Nasal Cannula 2.0 11/18/16 14:28 158 161/81 11/18/16 14:15 149 32 161/81 97 Nasal Cannula 2.0 11/18/16 12:45 95 180/99 11/18/16 12:30 97 157/96 11/18/16 12:15 93 169/100 11/18/16 12:00 94 161/96 11/18/16 11:45 94 158/92 11/18/16 11:30 97 163/95 11/18/16 11:15 92 159/88 11/18/16 11:00 96 161/89 11/18/16 10:45 98 169/76 11/18/16 10:30 95 187/89 11/18/16 10:15 89 174/99 11/18/16 10:00 90 165/89 11/18/16 09:45 97 176/104 11/18/16 09:30 93 169/97 11/18/16 09:15 91 178/95 11/18/16 09:10 36.9 92 189/76 11/18/16 08:00 Room Air 11/18/16 07:37 36.6 77 18 173/90 94 Room Air 11/18/16 05:30 36.8 80 20 179/102 97 Room Air 11/18/16 04:12 82 20 183/102 97 Room Air 11/18/16 02:57 79 16 184/109 99 Room Air 11/18/16 01:37 77 24 177/104 98 Room Air 11/18/16 01:15 97 Room Air 11/18/16 01:15 97 Room Air 11/18/16 01:09 84 11/18/16 00:57 36.7 81 18 180/98 93 Room Air Physical Exam General Appearance: + mild distress (secondary to pain) Respiratory/Chest: no respiratory distress, no accessory muscle use Cardiovascular: no murmur, + tachycardia, + irregularly irregular Abdomen: normal bowel sounds, non tender, soft Extremities: non-tender, normal inspection, + swelling (trace-+1 LE edema) Neurologic/Psychiatric: no motor/sensory deficits, alert, normal mood/affect Skin: normal color Laboratory Results Last 24 Hours Test 11/18/16 01:07 11/18/16 01:18 11/18/16 03:50 11/18/16 08:09 White Blood Count 11.63 K/uL Red Blood Count 3.40 M/uL Hemoglobin 10.7 g/dL Hematocrit 32.3 % Mean Corpuscular Volume 95.0 fL Mean Corpuscular Hemoglobin 31.5 pg Mean Corpuscular Hemoglobin Concent 33.1 g/dl Platelet Count 222 K/uL Mean Platelet Volume 8.4 fL Neutrophils (%) (Auto) 80.1 % Lymphocytes (%) (Auto) 6.5 % Monocytes (%) (Auto) 11.8 % Eosinophils (%) (Auto) 1.1 % Basophils (%) (Auto) 0.2 % Neutrophils # (Auto) 9.32 K/uL Lymphocytes # (Auto) 0.76 K/uL Monocytes # (Auto) 1.37 K/uL Eosinophils # (Auto) 0.13 K/uL Basophils # (Auto) 0.02 K/uL RDW Standard Deviation 68.8 fL RDW Coefficient of Variation 19.7 % Immature Granulocyte % (Auto) 0.3 % Immature Granulocyte # (Auto) 0.03 K/uL Erythrocyte Sedimentation Rate 61 mm/hr Activated Partial Thromboplast Time 24.6 SECONDS Partial Thromboplastin Ratio 0.9 D-Dimer 3550 ug/L FEU Sodium Level 139 mmol/L Potassium Level 6.3 mmol/L 5.8 mmol/L Chloride Level 102 mmol/L Carbon Dioxide Level 19 mmol/L Anion Gap 18.0 mmol/L Blood Urea Nitrogen 106 mg/dl Creatinine 16.00 mg/dl Est Creatinine Clear Calc Drug Dose 5.5 ml/min Estimated GFR () 3.3 Estimated GFR (Non- 2.8 BUN/Creatinine Ratio 6.7 Random Glucose 127 mg/dl Calcium Level 7.2 mg/dl Magnesium Level 3.0 mg/dl Total Bilirubin 0.6 mg/dl Direct Bilirubin 0.2 mg/dl Aspartate Amino Transf (AST/SGOT) 6 U/L Alanine Aminotransferase (ALT/SGPT) 15 U/L Alkaline Phosphatase 49 U/L Total Protein 7.7 gm/dl Albumin 3.8 gm/dl Lipase 414 U/L 180 U/L Thyroid Stimulating Hormone (TSH) 1.180 uIu/ml Bedside Troponin I 0.000 ng/ml KD-[id number]-[id number]-Type Natriuretic Peptide 73676 pg/ml Troponin I < 0.015 ng/ml Test 11/18/16 15:20 Hepatitis B Surface Antigen NEG Hepatitis B Surface Antibody NEG Assessment and Plan This is a 61 year old male with PMH of ESRD on HD, anemia of chronic disease, uncontrolled HTN presents with chest pain and then developed A. Fib with RVR A. Fib with RVR new onset of atrial fibrillation HRs in the 160s given one dose of IV lopressor, HRs improved to the 120s-140s blood pressure dropped from 170s to 110s appreciate cardiology input amiodarone drip started heparin drip started Pleuritic Chest Pain patient with some pleuritic chest pain cardiac enzymes negative x 2 patient initially with a normal EKG now developed A. Fib noted to have some pericardial effusion seems like the pericardial effusion likely related to missed dialysis; uremia continue dialysis and manage Atrial fibrillation, chest pain improving Hyperkalemia likely due to missed dialysis session just had HD today, recheck potassium in AM ESRD on HD usually gets dialysis on Tuesday and (twice per week) check electrolytes continue sevelamer Hypertensive Urgency patient's blood pressure is now on the lower end compliance is an issue; patient should be on amlodipine and coreg for blood pressure will monitor BP and adjust accordingly Anemia of Kidney Disease? Hgb is stable > 10, monitor DVT ppx IV heparin FULL CODE
[2016-11-18] MEDS: HEPARIN 25,000 UNIT/500ML D5W 500 ML IV PRN (18:06)
--- NOTE | 2016-11-18 18:52 | Nephrology Consultation ---
Nephrology Consultation Date of Consultation: Nov 18, 2016. Attending Physician: Dr Carney Requesting Physician: Dr Melgoza Reason for Consultation: ESRD, hyperkalemia History of Present Illness 61 year old male w/ ESRD on HD and HTN, past tobacco abuse, NSTEMI 12/2015, L sided nephrolithiasis admitted after presenting with chest discomfort and shortness of breath overnight. He recently started chronic HD last month under my care at [facility]. He previously followed for quite some time in CKD clinic w/ Dr Angeles. He has a PD catheter in place and actually was to start training for home dialysis today. Pt has a history of nonadherence to medical recommendations: he long delayed start of dialysis despite repeated recommendations to do so x mos (admitted here w/ creatinine 23 last month and HTN urgency, hgb 6), he followed w/ anemia clinic but was hard to reach while in their care, he has had challenges (as many patients do) adjusted to fluid and diet restrictions on chronic dialysis and shortens his treatments in part d/ t concerns about getting to his job. His last treatment prior to presenting to ER was on 11/13 for 3hrs. he missed treatment on 11/16 d/t weather issues; he has also been shortening his already short treatments (runs 3 hrs instead of conventional 4 hrs outpatient) d/t arriving late. he presented with dyspnea and with retrosternal chest pressure to ER overnight. His K was 6.3 on presentation, treated medically and imrpoved to 5.8 this AM. troponin was negative initially w/ elevated BNP. when I evaluated him on HD , his breathing and chest discomfort had markedly improved. He did c/o R lower/upper quadrant abdominal pain present since a few days after PD catheter placement about 2 wks ago. I saw and evaluated this pt this am on HD; apparently later in the day after dialysis he had A fib w/ RVR and hypotension > cardiology following and getting IV heparin, amiodarone. Past Medical/Surgical History Medical Problems: (1) Abnormal EKG Status: Acute (2) Anemia Status: Acute (3) ARF (acute renal failure) Status: Acute (4) Chest wall pain Status: Acute (5) ESRD (end stage renal disease) Status: Chronic (6) Hyperkalemia Status: Acute (7) Pancreatitis Status: Acute (8) Renal failure Status: Acute (9) Upper GI bleed Status: Acute as per HPI Family History Diabetes mellitus FATHER FH: CHF (congestive heart failure) FATHER Hypertension FATHER Hx of brother d/o cardiac dz age 42 Social History Smoking Status: Former Smoker Alcohol Use: occasionally Drug Use: none Marital Status: Housing Status: lives with significant other Occupation Status: employed Allergies Coded Allergies: No Known Allergies (Unverified , 11/18/16) Medications Current Inpatient Medications Medications (Trade) Dose Ordered Sig/Aleksandra Route Start Time Stop Time Status Last Admin Dose Admin Miscellaneous (Iv Fluids Completed) 1 ea PRN PRN N/A 11/18/16 04:15 11/18/17 04:14 Amlodipine Besylate (Norvasc Tab) 5 mg BID PO 11/18/16 21:00 12/18/16 20:59 Carvedilol (Coreg Tab) 12.5 mg BID PO 11/18/16 21:00 12/18/16 20:59 Oxycodone/ Acetaminophen (Percocet 5-325mg Tab) pain not relieved by tyle... Q4H PRN PO 11/18/16 04:15 12/02/16 04:14 Vitamin B Complex/ Vit C/Folic Acid (Nephrocaps) 1 cap QPM PO 11/18/16 21:00 12/18/16 20:59 Sevelamer HCl (Renagel Tab) 800 mg UD PRN PO 11/18/16 04:15 12/18/16 04:14 Hydromorphone HCl (Dilaudid Inj) 0.5 mg Q3H PRN IV 11/18/16 04:15 12/02/16 04:14 11/18/16 14:17 0.5 MG Ondansetron HCl (Zofran Inj) 4 mg Q6H PRN IV 11/18/16 04:15 12/18/16 04:14 Lorazepam (Ativan Inj) 0.5 mg Q4H PRN IV 11/18/16 04:15 12/18/16 04:14 Doxycycline Hyclate (Vibramycin Cap) 100 mg BID PO 11/18/16 21:00 11/25/16 20:59 Albuterol/ Ipratropium 3 ml 3 ml Q2H PRN INH 11/18/16 04:15 12/18/16 04:14 Amiodarone HCL/ Dextrose 200 ml @ 33.3 mls/hr Q6H1M IV 11/18/16 16:30 11/18/16 22:30 11/18/16 17:54 33.3 MLS/HR Amiodarone HCL/ Dextrose (Nexterone / D5w) 200 ml @ 16.7 mls/hr [id number] IV 11/18/16 22:30 12/18/16 22:29 Sevelamer HCl 1600 mg 1,600 mg TIDM PO 11/18/16 16:45 12/18/16 16:44 11/18/16 17:05 1,600 MG Heparin Sodium/ Dextrose (Heparin 25,000 Unit/500ml D5W) 500 ml @ 29 mls/hr [id number] PRN IV 11/18/16 16:45 12/18/16 16:44 11/18/16 18:06 29 MLS/HR Home Meds and Scripts Medications Dose Route/Sig Max Daily Dose Days Date Category Dose Instructions Nephrocaps (Vitamin B Complex/Vit C/Folic Acid) Cap 1 Cap PO QPM 11/18/16 Reported Renvela (Sevelamer Carbonate) 800 Mg Tab 800 Mg PO UD PRN 90 11/18/16 Reported Renvela (Sevelamer Carbonate) 800 Mg Tab 800 Mg PO TIDM 11/18/16 Reported Percocet 5MG/325MG (Oxycodone/Acetaminophen) Tab 1-2 Tablets PO Q4H PRN 10/28/16 Rx PAIN Coreg (Carvedilol) 12.5 Mg Tab 12.5 Mg PO BID 10/20/16 Reported Procrit (Epoetin Carlos Alberto) 2,000 Units Inj 10,000 Units INJ 3XWK 09/09/16 Reported GIVE ON TUESDAYS,THURSDAYS AND SATURDAYS IN DIALYSIS Norvasc (Amlodipine Besylate) 5 Mg Tab 5 Mg PO BID 04/14/16 Reported Review of Systems Constitutional: No fatigue, No fever, No weakness Eyes: No worsening of vision ENT: No hearing loss Respiratory: + cough, + shortness of breath (improved), No wheezing Cardiac: + chest pain (improved), + edema (improved), No palpitations Abdomen: + pain (R upper and lower quadrants since a few days after pd cath placement), No constipation, No diarrhea, No nausea, No vomiting Musculoskeletal: No joint pain, No muscle pain Male : No dysuria, No incontinence, No urinary frequency Neuro: No balance problems, No memory loss, No weakness Psych: + anxiety (anxious about leaving hospital to get to work in AM), No depression symptoms Heme: No abnormal bleeding/bruising Endo: No fatigue Skin: No itch, No rash Physical Exam Date Time Temp Pulse Resp B/P Pulse Ox O2 Delivery O2 Flow Rate FiO2 11/18/16 15:08 129 24 110/79 97 Nasal Cannula 2.0 11/18/16 14:30 132 26 125/63 97 Nasal Cannula 2.0 11/18/16 14:28 158 161/81 11/18/16 14:15 149 32 161/81 97 Nasal Cannula 2.0 11/18/16 12:45 95 180/99 11/18/16 12:30 97 157/96 11/18/16 12:15 93 169/100 11/18/16 12:00 94 161/96 11/18/16 11:45 94 158/92 11/18/16 11:30 97 163/95 11/18/16 11:15 92 159/88 11/18/16 11:00 96 161/89 11/18/16 10:45 98 169/76 11/18/16 10:30 95 187/89 11/18/16 10:15 89 174/99 11/18/16 10:00 90 165/89 11/18/16 09:45 97 176/104 11/18/16 09:30 93 169/97 11/18/16 09:15 91 178/95 11/18/16 09:10 36.9 92 189/76 11/18/16 08:00 Room Air 11/18/16 07:37 36.6 77 18 173/90 94 Room Air 11/18/16 05:30 36.8 80 20 179/102 97 Room Air 11/18/16 04:12 82 20 183/102 97 Room Air 11/18/16 02:57 79 16 184/109 99 Room Air 11/18/16 01:37 77 24 177/104 98 Room Air 11/18/16 01:15 97 Room Air 11/18/16 01:15 97 Room Air 11/18/16 01:09 84 11/18/16 00:57 36.7 81 18 180/98 93 Room Air General Appearance: WD/WN, no apparent distress (on RA, nad) Eyes: EOMI ENT: hearing grossly normal, + pertinent finding (poor dentition stable/chronic ) Neck: supple Respiratory/Chest: no respiratory distress, + decreased breath sounds Cardiovascular: regular rate, rhythm, + pertinent finding (1+ BLE edema) Abdomen: normal bowel sounds, soft, + guarding, + tenderness (R upper/lower quadrants), + pertinent finding (PD catheter L abdomen) Extremities: + pedal edema Neurologic/Psych: no motor/sensory deficits, alert, normal mood/affect, oriented x 3 Skin: no jaundice, warm/dry, no rash Diagnostics Last 24 Hours Test 11/18/16 01:07 11/18/16 01:18 11/18/16 03:50 11/18/16 08:09 White Blood Count 11.63 K/uL Red Blood Count 3.40 M/uL Hemoglobin 10.7 g/dL Hematocrit 32.3 % Mean Corpuscular Volume 95.0 fL Mean Corpuscular Hemoglobin 31.5 pg Mean Corpuscular Hemoglobin Concent 33.1 g/dl Platelet Count 222 K/uL Mean Platelet Volume 8.4 fL Neutrophils (%) (Auto) 80.1 % Lymphocytes (%) (Auto) 6.5 % Monocytes (%) (Auto) 11.8 % Eosinophils (%) (Auto) 1.1 % Basophils (%) (Auto) 0.2 % Neutrophils # (Auto) 9.32 K/uL Lymphocytes # (Auto) 0.76 K/uL Monocytes # (Auto) 1.37 K/uL Eosinophils # (Auto) 0.13 K/uL Basophils # (Auto) 0.02 K/uL RDW Standard Deviation 68.8 fL RDW Coefficient of Variation 19.7 % Immature Granulocyte % (Auto) 0.3 % Immature Granulocyte # (Auto) 0.03 K/uL Erythrocyte Sedimentation Rate 61 mm/hr Activated Partial Thromboplast Time 24.6 SECONDS Partial Thromboplastin Ratio 0.9 D-Dimer 3550 ug/L FEU Sodium Level 139 mmol/L Potassium Level 6.3 mmol/L 5.8 mmol/L Chloride Level 102 mmol/L Carbon Dioxide Level 19 mmol/L Anion Gap 18.0 mmol/L Blood Urea Nitrogen 106 mg/dl Creatinine 16.00 mg/dl Est Creatinine Clear Calc Drug Dose 5.5 ml/min Estimated GFR () 3.3 Estimated GFR (Non- 2.8 BUN/Creatinine Ratio 6.7 Random Glucose 127 mg/dl Calcium Level 7.2 mg/dl Magnesium Level 3.0 mg/dl Total Bilirubin 0.6 mg/dl Direct Bilirubin 0.2 mg/dl Aspartate Amino Transf (AST/SGOT) 6 U/L Alanine Aminotransferase (ALT/SGPT) 15 U/L Alkaline Phosphatase 49 U/L Total Protein 7.7 gm/dl Albumin 3.8 gm/dl Lipase 414 U/L 180 U/L Thyroid Stimulating Hormone (TSH) 1.180 uIu/ml Bedside Troponin I 0.000 ng/ml CV-Ooj-M-Type Natriuretic Peptide 09328 pg/ml Troponin I < 0.015 ng/ml Test 11/18/16 15:20 Hepatitis B Surface Antigen NEG Hepatitis B Surface Antibody NEG Diagnostic Radiology: CXR 1. Bibasilar opacities which likely reflect atelectasis. 2. Pulmonary vascular congestion without overt pulmonary edema. Venous Dopplers > no DVT either LE CT abd/pelvis non con 1. Left-sided nephrolithiasis with staghorn type calculus within the lower aspect of the collecting system. Mild left collecting system dilatation. No ureteral calculi. 2. Peritoneal dialysis catheter in place. 3. Small pericardial effusion. 4. A few mildly enlarged para-aortic lymph nodes which are nonspecific. A follow-up CT of the abdomen could be obtained in 6 months to ensure stability. 5. Mild bilateral perinephric infiltration, a nonspecific finding. 7. Mild gallbladder distention. No pericholecystic infiltration. EKG: NSR w/ minimal LVH, may be normal variant Prolonged QT >> compared with ECG of 14-OCT-2016 19:21, Non-specific change in ST segment in Lateral leads T wave inversion less evident in Lateral leads Echocardiogram September 2016 Comparedtolastavailablestudy12/2015inferiorwallmotionabnormalityhas resolved. NormalLVchambersizewithmildconcentricLVH. NormalLVsystolicfunctionwithoutregionalwallmotionabnormality,[id number]%. GradeIdiastolicdysfunction. Mildmitralannularcalcification. Severeleftatrialenlargement. Assessment & Plan 61 y/o M w/ ESRD, hx of nonadherence to medical recommendations, anemia of ESRD admitted for evaluation of chest pain and dyspnea and mgt of HTN urgency, hyperkalemia after missing dialysis on 11/16. he had uneventful HD today from what I know so far; we did set aggressive UF goals d/t HTN but no more than he routinely has as outpt. After HD he developed AF w/ RVR and hypotension, needing aggressive cardiology management. ESRD -had HD today; assess for need daily; got 3.8 L uf today Hyperkalemia -treated w/ HD today; will ensure on renal diet HTN urgency d/t nonadherence w/ medical tx AF w/ RVR cardiology following; BP has been labile per report/ review of charting shows still high Anemia of ESRD had low dose procrit on tx today; acceptable R sided abd pain no explanation on CT scan except ? location of PD cath. notable is L sided nephrolithiasis however. appreciate consult; will follow with you.
--- NOTE | 2016-11-18 18:55 | Dialysis Progress Note ---
Nephrology Dialysis Note Date of Service: Nov 18, 2016. Subjective pt seen and evaluated on dialysis this am at 1005; c/o R sided abdominal pain; stated that dyspnea, chest discomfort had markedly improved; anxious for hospital d/c Objective Date Time Temp Pulse Resp B/P Pulse Ox O2 Delivery O2 Flow Rate FiO2 11/18/16 15:08 129 24 110/79 97 Nasal Cannula 2.0 11/18/16 14:30 132 26 125/63 97 Nasal Cannula 2.0 11/18/16 14:28 158 161/81 11/18/16 14:15 149 32 161/81 97 Nasal Cannula 2.0 11/18/16 12:45 95 180/99 11/18/16 12:30 97 157/96 11/18/16 12:15 93 169/100 11/18/16 12:00 94 161/96 11/18/16 11:45 94 158/92 11/18/16 11:30 97 163/95 11/18/16 11:15 92 159/88 11/18/16 11:00 96 161/89 11/18/16 10:45 98 169/76 11/18/16 10:30 95 187/89 11/18/16 10:15 89 174/99 11/18/16 10:00 90 165/89 11/18/16 09:45 97 176/104 11/18/16 09:30 93 169/97 11/18/16 09:15 91 178/95 11/18/16 09:10 36.9 92 189/76 11/18/16 08:00 Room Air 11/18/16 07:37 36.6 77 18 173/90 94 Room Air 11/18/16 05:30 36.8 80 20 179/102 97 Room Air 11/18/16 04:12 82 20 183/102 97 Room Air 11/18/16 02:57 79 16 184/109 99 Room Air 11/18/16 01:37 77 24 177/104 98 Room Air 11/18/16 01:15 97 Room Air 11/18/16 01:15 97 Room Air 11/18/16 01:09 84 11/18/16 00:57 36.7 81 18 180/98 93 Room Air Physical Exam: General-on RA oriented x 3 nad Eyeseomi ENT-poor dentition Neck-supple Lungs-diminished air entry; anterior exam on HD Heart-RRR; 1+ ble edema Abdomen-PD cath present; R sided guarding w/o rebound; + bs no fluid wave soft Extremities-no c/c Neuro-gotti, fluent speech Current Inpatient Medications Medications (Trade) Dose Ordered Sig/Aleksandra Route Start Time Stop Time Status Last Admin Dose Admin Miscellaneous (Iv Fluids Completed) 1 ea PRN PRN N/A 11/18/16 04:15 11/18/17 04:14 Amlodipine Besylate (Norvasc Tab) 5 mg BID PO 11/18/16 21:00 12/18/16 20:59 Carvedilol (Coreg Tab) 12.5 mg BID PO 11/18/16 21:00 12/18/16 20:59 Oxycodone/ Acetaminophen (Percocet 5-325mg Tab) pain not relieved by tyle... Q4H PRN PO 11/18/16 04:15 12/02/16 04:14 Vitamin B Complex/ Vit C/Folic Acid (Nephrocaps) 1 cap QPM PO 11/18/16 21:00 12/18/16 20:59 Sevelamer HCl (Renagel Tab) 800 mg UD PRN PO 11/18/16 04:15 12/18/16 04:14 Hydromorphone HCl (Dilaudid Inj) 0.5 mg Q3H PRN IV 11/18/16 04:15 12/02/16 04:14 11/18/16 14:17 0.5 MG Ondansetron HCl (Zofran Inj) 4 mg Q6H PRN IV 11/18/16 04:15 12/18/16 04:14 Lorazepam (Ativan Inj) 0.5 mg Q4H PRN IV 11/18/16 04:15 12/18/16 04:14 11/18/16 18:09 0.5 MG Doxycycline Hyclate (Vibramycin Cap) 100 mg BID PO 11/18/16 21:00 11/25/16 20:59 Albuterol/ Ipratropium 3 ml 3 ml Q2H PRN INH 11/18/16 04:15 12/18/16 04:14 Amiodarone HCL/ Dextrose 200 ml @ 33.3 mls/hr Q6H1M IV 11/18/16 16:30 11/18/16 22:30 11/18/16 17:54 33.3 MLS/HR Amiodarone HCL/ Dextrose (Nexterone / D5w) 200 ml @ 16.7 mls/hr [id number] IV 11/18/16 22:30 12/18/16 22:29 Sevelamer HCl 1600 mg 1,600 mg TIDM PO 11/18/16 16:45 12/18/16 16:44 11/18/16 17:05 1,600 MG Heparin Sodium/ Dextrose (Heparin 25,000 Unit/500ml D5W) 500 ml @ 29 mls/hr [id number] PRN IV 11/18/16 16:45 12/18/16 16:44 11/18/16 18:06 29 MLS/HR Last 24 Hours Test 11/18/16 01:07 11/18/16 01:18 11/18/16 03:50 11/18/16 08:09 White Blood Count 11.63 K/uL Red Blood Count 3.40 M/uL Hemoglobin 10.7 g/dL Hematocrit 32.3 % Mean Corpuscular Volume 95.0 fL Mean Corpuscular Hemoglobin 31.5 pg Mean Corpuscular Hemoglobin Concent 33.1 g/dl Platelet Count 222 K/uL Mean Platelet Volume 8.4 fL Neutrophils (%) (Auto) 80.1 % Lymphocytes (%) (Auto) 6.5 % Monocytes (%) (Auto) 11.8 % Eosinophils (%) (Auto) 1.1 % Basophils (%) (Auto) 0.2 % Neutrophils # (Auto) 9.32 K/uL Lymphocytes # (Auto) 0.76 K/uL Monocytes # (Auto) 1.37 K/uL Eosinophils # (Auto) 0.13 K/uL Basophils # (Auto) 0.02 K/uL RDW Standard Deviation 68.8 fL RDW Coefficient of Variation 19.7 % Immature Granulocyte % (Auto) 0.3 % Immature Granulocyte # (Auto) 0.03 K/uL Erythrocyte Sedimentation Rate 61 mm/hr Activated Partial Thromboplast Time 24.6 SECONDS Partial Thromboplastin Ratio 0.9 D-Dimer 3550 ug/L FEU Sodium Level 139 mmol/L Potassium Level 6.3 mmol/L 5.8 mmol/L Chloride Level 102 mmol/L Carbon Dioxide Level 19 mmol/L Anion Gap 18.0 mmol/L Blood Urea Nitrogen 106 mg/dl Creatinine 16.00 mg/dl Est Creatinine Clear Calc Drug Dose 5.5 ml/min Estimated GFR () 3.3 Estimated GFR (Non- 2.8 BUN/Creatinine Ratio 6.7 Random Glucose 127 mg/dl Calcium Level 7.2 mg/dl Magnesium Level 3.0 mg/dl Total Bilirubin 0.6 mg/dl Direct Bilirubin 0.2 mg/dl Aspartate Amino Transf (AST/SGOT) 6 U/L Alanine Aminotransferase (ALT/SGPT) 15 U/L Alkaline Phosphatase 49 U/L Total Protein 7.7 gm/dl Albumin 3.8 gm/dl Lipase 414 U/L 180 U/L Thyroid Stimulating Hormone (TSH) 1.180 uIu/ml Bedside Troponin I 0.000 ng/ml [id number]-Type Natriuretic Peptide 71257 pg/ml Troponin I < 0.015 ng/ml Test 11/18/16 15:20 Hepatitis B Surface Antigen NEG Hepatitis B Surface Antibody NEG Date/Time Source Procedure Growth Status 11/18/16 05:52 Nasal MRSA DNA Surveillance Screen - Final Specimen Negative for MRSA by DNA Probe Complete Assessment & Plan 61 y/o M w/ ESRD, hx of nonadherence to medical recommendations, anemia of ESRD admitted for evaluation of chest pain and dyspnea and mgt of HTN urgency, hyperkalemia after missing dialysis on 11/16. ESRD -had HD today; assess for need daily; got 3.8 L uf today Hyperkalemia -treated w/ HD today; will ensure on renal diet HTN urgency d/t nonadherence w/ medical tx AF w/ RVR (new issue; developed after HD today) cardiology following; BP has been labile per report/ review of charting shows still high Anemia of ESRD had low dose procrit on tx today; acceptable R sided abd pain no explanation on CT scan except ? location of PD cath. notable is L sided nephrolithiasis however. >> I sent PD fluid studies to ensure no infection though my index of suspicion for peritonitis is low appreciate consult; will follow with you.
[2016-11-18] MEDS: CARVEDILOL 12.5 MG TAB PO SCH (20:42)
[2016-11-18] MEDS: NEPHROCAPS PO SCH (20:42)
[2016-11-18] MEDS: AMLODIPINE BESYLATE 5 MG TAB PO SCH (20:42)
[2016-11-18] MEDS: DOXYCYCLINE HYCLATE 100 MG CAP PO SCH (20:42)
[2016-11-18] MEDS: AMIODARONE / D5W 200 ML IV SCH ×2 (22:43→23:39)
[2016-11-19] VITALS (24 sets, daily range): BP systolic 95–173; BP diastolic 58–93; PULSE 62–117; TEMP 36.5–37.3; O2SAT 92–95
[2016-11-19 00:52] LABS: PARTIAL THROMBOPLASTIN RATIO 1.8
[2016-11-19] MEDS: HEPARIN 25,000 UNIT/500ML D5W 500 ML IV PRN ×2 (01:29→09:27)
[2016-11-19] MEDS ORDERED: HEPARIN IV BOLUS 3,000 UNIT in SYRINGE 0 ML IV ONE (01:30)
[2016-11-19 07:43] LABS: BASO % 0.1 %; BASO ABS # 0.01 K/uL (0-0.2); EOS % 2.9 %; HEMATOCRIT 25.3 % (42-52); IG% 0.1 %; LYMPH % 18.9 %; LYMPH ABS # 1.38 K/uL (1.2-3.4); MEAN CORPUSCULAR HEMOGLOBIN 30.5 pg (25-34); MEAN CORPUSCULAR HGB CONC 32.8 g/dl (32-36); MEAN PLATELET VOLUME 8.7 fL (7.4-10.4); PLATELET COUNT 154 K/uL (130-400); RED BLOOD COUNT 2.72 M/uL (4.7-6.1); WHITE BLOOD COUNT 7.32 K/uL (4.8-10.8)
[2016-11-19 08:04] LABS: PARTIAL THROMBOPLASTIN RATIO 1.8
[2016-11-19] MEDS: SEVELAMER HYDROCH 800 MG TAB PO SCH ×3 (08:18→16:56)
[2016-11-19] MEDS: CARVEDILOL 12.5 MG TAB PO SCH ×2 (08:19→20:09)
[2016-11-19] MEDS: AMLODIPINE BESYLATE 5 MG TAB PO SCH ×2 (08:19→20:09)
[2016-11-19] MEDS: DOXYCYCLINE HYCLATE 100 MG CAP PO SCH (08:19)
[2016-11-19 08:45] LABS: BUN/CREATININE RATIO 4.9 (10-20); CALCIUM 7.3 mg/dl (8.5-10.1); CREATININE 9.6 mg/dl (0.60-1.40); MAGNESIUM 2.3 mg/dl (1.8-2.4); POTASSIUM 3.9 mmol/L (3.5-5.1)
[2016-11-19 09:00] LABS: COMPLETE YES
[2016-11-19] MEDS: AMIODARONE / D5W 200 ML IV SCH (09:28)
[2016-11-19] MEDS ORDERED: HEPARIN SOD (PORCINE) 1000 UNIT/ML 10 ML VIAL IV SCH (09:45)
[2016-11-19] MEDS: HEPARIN SOD (PORCINE) 1000 UNIT/ML 10 ML VIAL IV SCH ×3 (09:45→11:45)
[2016-11-19] MEDS ORDERED: EPOETIN ALFA 10,000 UNITS/ML VIAL IV. ONE (09:45)
[2016-11-19] MEDS ORDERED: EPOETIN ALFA INJ 6,000 UNITS in SYRINGE 0 ML IV. SCH (10:00)
--- NOTE | 2016-11-19 12:09 | Cardiology Follow-Up ---
Subjective General Date of Service: Nov 19, 2016. Chief Complaint: cp/afib Pt evaluation today including: conversation w/ patient, physical exam, chart review, lab review, review of studies, conversation w/ fashion consultant, review of inpatient medication list History of Present Illness Patient evaluated during dialysis treatment. Anxious for discharge once treatment is over. Denies recurrent chest pain. Cough improved. Attributes afib episode to bronchitis. Denies SOB. Edema unchanged. Pleuritic pain improved. Remains NSR on monitor overnight on amiodarone gtt. Allergies Coded Allergies: No Known Allergies (Unverified , 11/18/16) Social History Smoking Status: Former Smoker Hx Tobacco Use In Past Year?: No (QUIT 2013) Hx Alcohol Use - Type And Amou: Yes (one glass WINE/day) Hx Substance Use - Type And Am: No (Lunesta) Problem List Medical Problems: (1) Abnormal EKG Status: Acute (2) Anemia Status: Acute (3) ARF (acute renal failure) Status: Acute (4) Chest wall pain Status: Acute (5) ESRD (end stage renal disease) Status: Chronic (6) Hyperkalemia Status: Acute (7) Pancreatitis Status: Acute (8) Renal failure Status: Acute (9) Upper GI bleed Status: Acute Review of Systems Respiratory: No cough, No dyspnea at rest, No dyspnea on exertion, No hemoptysis, No shortness of breath, No sputum Cardiac: + edema, No PND, No chest pain, No orthopnea, No palpitations Physical Exam Vital Signs Last Vital Signs Documentation Date Time Temp Pulse Resp B/P Pulse Ox O2 Delivery O2 Flow Rate FiO2 11/19/16 09:15 36.8 72 162/68 11/19/16 07:50 20 92 Room Air 11/18/16 15:08 2.0 Physical Exam Constitutional: General Apperance: heathly-appearing Level of Distress: NAD Psychiatric: Mental Status: anxious, agitated Orientation: to time, to place, to person Head: normocephalic Eyes: Pupils: PERRLA Neck: supple Lungs: Respiratory effort: no dyspnea Auscultation: no wheezing, no rales/crackles Cardiovascular: Heart Auscultation: RRR, normal S1, normal S2, no murmurs Extremities: edema (1+ pretibial edema ) Assessment and Plan Assessment and Plan 61 year old male 1. Chest pain, atypical for ACS. -symptoms improved. -possible uremic pericarditis -echo report pending 2. Afib RVR post dialysis yesterday -started on amiodarone gtt with conversion to NSR -transition to oral amiodarone today - 200 mg BID -has history of severe anemia, from CKD -not likely jail anticoagulation candidate. -patient also with history of non compliance with medications and would be difficult to manage coumadin. 3. Abnormal EKG - chronic -likely will need ischemic work up as part of pre renal transplant evaluation 4. ESRD on HD - manage fluid status and electrolytes 5. Uncontrolled hypertension, changes per nephrology Case discussed with hospitalist and Dr. Del Toro. CARDIOLOGY ATTENDING ADDENDUM: The patient was seen and personally examined. Agree with Divine Waddell PA-C's findings and plans as documented above. It has to be made clear to this patient that it is important that he have follow-up with us after discharge for dose adjustment of his amiodarone. Laboratory Results Last 24 Hours Test 11/18/16 15:20 11/19/16 00:25 11/19/16 07:22 11/19/16 07:29 Hepatitis B Surface Antigen NEG Hepatitis B Surface Antibody NEG Activated Partial Thromboplast Time 45.5 SECONDS 47.9 SECONDS Partial Thromboplastin Ratio 1.8 1.8 White Blood Count 7.32 K/uL Red Blood Count 2.72 M/uL Hemoglobin 8.3 g/dL Hematocrit 25.3 % Mean Corpuscular Volume 93.0 fL Mean Corpuscular Hemoglobin 30.5 pg Mean Corpuscular Hemoglobin Concent 32.8 g/dl Platelet Count 154 K/uL Mean Platelet Volume 8.7 fL Neutrophils (%) (Auto) 63.0 % Lymphocytes (%) (Auto) 18.9 % Monocytes (%) (Auto) 15.0 % Eosinophils (%) (Auto) 2.9 % Basophils (%) (Auto) 0.1 % Neutrophils # (Auto) 4.61 K/uL Lymphocytes # (Auto) 1.38 K/uL Monocytes # (Auto) 1.10 K/uL Eosinophils # (Auto) 0.21 K/uL Basophils # (Auto) 0.01 K/uL RDW Standard Deviation 66.5 fL RDW Coefficient of Variation 19.3 % Immature Granulocyte % (Auto) 0.1 % Immature Granulocyte # (Auto) 0.01 K/uL Red Blood Cell Morphology Unremarkable Sodium Level 138 mmol/L Potassium Level 3.9 mmol/L Chloride Level 96 mmol/L Carbon Dioxide Level 25 mmol/L Anion Gap 17.0 mmol/L Blood Urea Nitrogen 47 mg/dl Creatinine 9.60 mg/dl Est Creatinine Clear Calc Drug Dose 9.2 ml/min Estimated GFR () 6.1 Estimated GFR (Non- 5.3 BUN/Creatinine Ratio 4.9 Random Glucose 95 mg/dl Calcium Level 7.3 mg/dl Magnesium Level 2.3 mg/dl
[2016-11-19] MEDS ORDERED: AMIODARONE 200 MG TAB PO ONE (12:10)
--- NOTE | 2016-11-19 12:28 | Dialysis Progress Note ---
Nephrology Dialysis Note Date of Service: Nov 19, 2016. Subjective pt seen and evaluated on dialysis this am at 1030; abd pain improved; stated that dyspnea, chest discomfort had markedly improved; anxious for hospital d/c as yesterday and pacing. TTE done today; back in SR since 183 yesterday Objective Date Time Temp Pulse Resp B/P Pulse Ox O2 Delivery O2 Flow Rate FiO2 11/19/16 09:15 36.8 72 162/68 11/19/16 07:50 36.8 79 20 165/81 92 Room Air 11/19/16 07:45 Room Air 11/19/16 04:07 37.3 67 18 154/74 95 Room Air 11/19/16 04:00 Room Air 11/18/16 23:59 Room Air 11/18/16 23:33 37.0 80 19 147/83 93 Room Air 11/18/16 20:00 Room Air 11/18/16 19:25 37.4 91 18 154/78 94 Room Air 11/18/16 16:00 Room Air 11/18/16 15:08 129 24 110/79 97 Nasal Cannula 2.0 11/18/16 14:30 132 26 125/63 97 Nasal Cannula 2.0 11/18/16 14:28 158 161/81 11/18/16 14:15 149 32 161/81 97 Nasal Cannula 2.0 11/18/16 13:30 36.6 96 178/94 11/18/16 13:15 81 161/82 11/18/16 13:00 89 172/84 11/18/16 12:45 95 180/99 11/18/16 12:30 97 157/96 Physical Exam: General-on RA oriented x 3 nad Eyeseomi ENT-poor dentition Neck-supple Lungs-diminished air entry; anterior exam on HD Heart-RRR; 1+ ble edema Abdomen-PD cath present; R sided guarding w/o rebound; + bs no fluid wave soft Extremities-no c/c Neuro-gotti, fluent speech Current Inpatient Medications Medications (Trade) Dose Ordered Sig/Aleksandra Route Start Time Stop Time Status Last Admin Dose Admin Miscellaneous (Iv Fluids Completed) 1 ea PRN PRN N/A 11/18/16 04:15 11/18/17 04:14 Amlodipine Besylate (Norvasc Tab) 5 mg BID PO 11/18/16 21:00 12/18/16 20:59 11/19/16 08:19 5 MG Carvedilol (Coreg Tab) 12.5 mg BID PO 11/18/16 21:00 12/18/16 20:59 11/19/16 08:19 12.5 MG Oxycodone/ Acetaminophen (Percocet 5-325mg Tab) pain not relieved by tyle... Q4H PRN PO 11/18/16 04:15 12/02/16 04:14 11/19/16 03:39 2 TAB Vitamin B Complex/ Vit C/Folic Acid (Nephrocaps) 1 cap QPM PO 11/18/16 21:00 12/18/16 20:59 11/18/16 20:42 1 CAP Sevelamer HCl (Renagel Tab) 800 mg UD PRN PO 11/18/16 04:15 12/18/16 04:14 Hydromorphone HCl (Dilaudid Inj) 0.5 mg Q3H PRN IV 11/18/16 04:15 12/02/16 04:14 11/18/16 14:17 0.5 MG Ondansetron HCl (Zofran Inj) 4 mg Q6H PRN IV 11/18/16 04:15 12/18/16 04:14 Lorazepam (Ativan Inj) 0.5 mg Q4H PRN IV 11/18/16 04:15 12/18/16 04:14 11/18/16 18:09 0.5 MG Doxycycline Hyclate (Vibramycin Cap) 100 mg BID PO 11/18/16 21:00 11/25/16 20:59 11/19/16 08:19 100 MG Albuterol/ Ipratropium (Duoneb) 3 ml Q2H PRN INH 11/18/16 04:15 12/18/16 04:14 Sevelamer HCl 1600 mg 1,600 mg TIDM PO 11/18/16 16:45 12/18/16 16:44 11/19/16 08:18 1,600 MG Heparin Sodium/ Dextrose 500 ml @ 32 mls/hr [id number] PRN IV 11/18/16 16:45 12/18/16 16:44 11/19/16 09:27 32 MLS/HR Epoetin Carlos Alberto/ Syringe (Procrit Inj/ Syringe) 0.3 ml @ 1 mls/min TODAY@1000 IV. 11/19/16 10:00 11/19/16 18:00 Amiodarone HCl (Cordarone Tab) 200 mg BID PO 11/19/16 21:00 12/19/16 20:59 Last 24 Hours Test 11/18/16 15:20 11/19/16 00:25 11/19/16 07:22 11/19/16 07:29 Hepatitis B Surface Antigen NEG Hepatitis B Surface Antibody NEG Activated Partial Thromboplast Time 45.5 SECONDS 47.9 SECONDS Partial Thromboplastin Ratio 1.8 1.8 White Blood Count 7.32 K/uL Red Blood Count 2.72 M/uL Hemoglobin 8.3 g/dL Hematocrit 25.3 % Mean Corpuscular Volume 93.0 fL Mean Corpuscular Hemoglobin 30.5 pg Mean Corpuscular Hemoglobin Concent 32.8 g/dl Platelet Count 154 K/uL Mean Platelet Volume 8.7 fL Neutrophils (%) (Auto) 63.0 % Lymphocytes (%) (Auto) 18.9 % Monocytes (%) (Auto) 15.0 % Eosinophils (%) (Auto) 2.9 % Basophils (%) (Auto) 0.1 % Neutrophils # (Auto) 4.61 K/uL Lymphocytes # (Auto) 1.38 K/uL Monocytes # (Auto) 1.10 K/uL Eosinophils # (Auto) 0.21 K/uL Basophils # (Auto) 0.01 K/uL RDW Standard Deviation 66.5 fL RDW Coefficient of Variation 19.3 % Immature Granulocyte % (Auto) 0.1 % Immature Granulocyte # (Auto) 0.01 K/uL Red Blood Cell Morphology Unremarkable Sodium Level 138 mmol/L Potassium Level 3.9 mmol/L Chloride Level 96 mmol/L Carbon Dioxide Level 25 mmol/L Anion Gap 17.0 mmol/L Blood Urea Nitrogen 47 mg/dl Creatinine 9.60 mg/dl Est Creatinine Clear Calc Drug Dose 9.2 ml/min Estimated GFR () 6.1 Estimated GFR (Non- 5.3 BUN/Creatinine Ratio 4.9 Random Glucose 95 mg/dl Calcium Level 7.3 mg/dl Magnesium Level 2.3 mg/dl Assessment & Plan 61 y/o M w/ ESRD, hx of nonadherence to medical recommendations, anemia of ESRD admitted for evaluation of chest pain and dyspnea and mgt of HTN urgency, hyperkalemia after missing dialysis on 11/16. ESRD -for HD today; assess for need daily; got 3.8 L uf yesterday; needs HD tomorrow whether as inpt or outpt to stay on track Hyperkalemia -treated w/ HD yesterday; will ensure on renal diet HTN urgency / uremic pericarditis d/t nonadherence w/ medical tx -- sx improved w/ HD AF/F (new issue; developed after HD 11/18) cardiology following; BP and heart rhythm stabilized but as of this am remains on heparin / amio gtts; discussed w/ cardiology who feels dialysis today reasonable Anemia of ESRD for low dose procrit on tx today; acceptable hgb R sided abd pain no explanation on CT scan except ? location of PD cath. notable is L sided nephrolithiasis however. >> I sent PD fluid studies to ensure no infection though my index of suspicion for peritonitis is low >> unfortunately orders/ collection/lab intake did not go smoothly > we are trying to locate and if possible run specimens; abd pain improved and would not collect specimens again unless changing clinically appreciate consult; will follow with you. Care coordinated w/ Dr Del Toro
--- NOTE | 2016-11-19 12:35 | ECHOCARDIOGRAM REPORT ---
*NOTICE TO RECEIVING DEMOCRAT AGENCY This information is strictly Confidential and protected under [place] law. [place] law prohibits you from making any further disclosure of this information unless further disclosure is expressly permitted by the written consent of the person to whom it pertains or is authorized by law. A general authorization for the release of medical or other information is not sufficient for this purpose. Hospital accepts no responsibility if the information is made available to any other person, INCLUDING THE PATIENT. Interpretation Summary * Name: EDUARDO CHAVARRIA Study Date: 11/19/2016 07:31 AM BP: 183/102 mmHg * Patient Location: C.2T\S\S241\S\2 HR: 82 * : 1955 (M/d/yyyy) Gender: Male Height: 69 in * Age: 61 yrs Ethnicity: [place] Weight: 205 lb * Ordering Physician: Nathaniel Pino * Referring Physician: Self, Referred * Performed By: Melvin Huynh RCS * * Reason For Study: Chest Pain * BSA: 2.1 m2 * -- Conclusions -- * The left ventricle is normal in size. * There is moderate concentric left ventricular hypertrophy. * Ejection Fraction = 50-55%. * Grade I diastolic dysfunction, (abnormal relaxation pattern). * Small pericardial effusion. * There are no echocardiographic indications of cardiac tamponade. Procedure Details * A complete two-dimensional transthoracic echocardiogram was performed (2D, M-mode, Doppler and color flow Doppler). Left Ventricle * The left ventricle is normal in size. * There is moderate concentric left ventricular hypertrophy. * Ejection Fraction = 50-55%. * The left ventricular wall motion is normal. Right Ventricle * The right ventricle is normal size. * The right ventricular systolic function is normal. Atria * The left atrial size is normal. * Right atrial size is normal. * The interatrial septum is intact with no evidence for an atrial septal defect. Mitral Valve * The mitral valve anatomy is normal. * There is mild mitral regurgitation. Tricuspid Valve * The tricuspid valve anatomy is normal. * Significant tricuspid regurgitation is absent. Aortic Valve * The aortic valve is normal in structure and function. Pulmonic Valve * The pulmonic valve is not well visualized. * There is no significant pulmonary regurgitation. Great Vessels * The aortic root and proximal ascending aorta are normal sized. Pericardium/Pleural * Small pericardial effusion. * There are no echocardiographic indications of cardiac tamponade. Left Ventricular Diastolic Function * Grade I diastolic dysfunction, (abnormal relaxation pattern). MMode 2D Measurements and Calculations IVSd 1.1 cm IVSs 1.6 cm LVIDd 6.7 cm LVIDs 4.7 cm LVPWd 1.1 cm LVPWs 1.7 cm IVS/LVPW 0.96 FS 29.7 % EDV(Teich) 232.5 ml ESV(Teich) 103.4 ml EF(Teich) 55.5 % EDV(cubed) 302.7 ml ESV(cubed) 105.2 ml EF(cubed) 65.2 % % IVS thick 43.5 % % LVPW thick 49.3 % LV mass(C)d 341.4 grams LV mass(C)dI 163.5 grams/m\S\2 LV mass(C)s 333.9 grams LV mass(C)sI 159.9 grams/m\S\2 CO(Teich) 10.1 l/min CI(Teich) 4.8 l/min/m\S\2 SV(Teich) 129.0 ml SI(Teich) 61.8 ml/m\S\2 CO(cubed) 15.4 l/min CI(cubed) 7.4 l/min/m\S\2 SV(cubed) 197.5 ml SI(cubed) 94.6 ml/m\S\2 Ao root diam 3.8 cm Ao root area 11.5 cm\S\2 ACS 2.3 cm LA dimension 4.5 cm LA/Ao 1.2 LVAd ap4 39.5 cm\S\2 LVLd ap4 10.1 cm EDV(MOD-sp4) 130.0 ml LVAs ap4 24.5 cm\S\2 LVLs ap4 8.8 cm ESV(MOD-sp4) 59.0 ml EF(MOD-sp4) 54.6 % LVAd ap2 40.5 cm\S\2 LVLd ap2 9.7 cm EDV(MOD-sp2) 142.0 ml LVAs ap2 25.3 cm\S\2 LVLs ap2 8.2 cm ESV(MOD-sp2) 69.0 ml EF(MOD-sp2) 51.4 % CO(MOD-sp4) 5.5 l/min CI(MOD-sp4) 2.7 l/min/m\S\2 SV(MOD-sp4) 71.0 ml SI(MOD-sp4) 34.0 ml/m\S\2 CO(MOD-sp2) 5.7 l/min CI(MOD-sp2) 2.7 l/min/m\S\2 SV(MOD-sp2) 73.0 ml SI(MOD-sp2) 35.0 ml/m\S\2 Doppler Measurements and Calculations MV E max violet 96.3 cm/sec MV A max violet 106.1 cm/sec MV E/A 0.91 MV P1/2t max violet 81.4 cm/sec MV P1/2t 53.6 msec MVA(P1/2t) 4.1 cm\S\2 MV dec slope 444.8 cm/sec\S\2 MV dec time 0.19 sec Ao V2 max 127.1 cm/sec Ao max PG 6.5 mmHg Ao max PG (full) 3.8 mmHg LV V1 max PG 2.7 mmHg LV V1 max 81.4 cm/sec PA V2 max 84.7 cm/sec PA max PG 2.9 mmHg PI max violet 215.0 cm/sec PI max PG 18.5 mmHg PI dec slope 189.8 cm/sec\S\2 PI P1/2t 331.8 msec
--- NOTE | 2016-11-19 15:50 | DIAGNOSTIC IMAGING REPORT ---
NUCLEAR PULMONARY VENTILATION/PERFUSION SCAN CLINICAL HISTORY: Atypical chest pain. COMPARISON STUDY: Chest x-ray dated 11/18/2016. TECHNIQUE: Initially, ventilation images of both lungs are obtained following the inhalation of 30.9 mCi of aerosolized technetium 99m DTPA. Subsequently, perfusion images of both lungs were obtained following the IV administration of 5.5 mCi of technetium 99m MAA. Ventilation and perfusion images were acquired in the anterior, posterior, and oblique projections. FINDINGS: A chest x-ray performed 11/18/2016 shows cardiomegaly and mild pulmonary basilar congestion. Small pleural effusions and bibasilar atelectasis are noted. The ventilation of both lungs is heterogeneous. Deposition of tracer within the central airways suggests obstructive physiology. Inhaled tracer is seen in the stomach. No perfusion defects are identified on the perfusion imaging. No segmental perfusion defects are appreciated. IMPRESSION: Findings are considered low probability for pulmonary embolus. Electronically signed by: Maurizio Dumas M.D. 11/19/2016 3:49 PM Dictated Date/Time: 11/19/2016 3:48 PM
--- NOTE | 2016-11-19 17:56 | Progress Note ---
Subjective Date of Service: Nov 19, 2016. Subjective Pt evaluation today including: conversation w/ patient, physical exam, lab review, review of studies, review of inpatient medication list Saw/examined the patient in room 241 Denies any chest pain/palpitations Eager to get home Problem List Medical Problems: (1) Abnormal EKG Status: Acute (2) Anemia Status: Acute (3) ARF (acute renal failure) Status: Acute (4) Chest wall pain Status: Acute (5) ESRD (end stage renal disease) Status: Chronic (6) Hyperkalemia Status: Acute (7) Pancreatitis Status: Acute (8) Renal failure Status: Acute (9) Upper GI bleed Status: Acute Review of Systems Constitutional: No chills, No fever Respiratory: No cough, No dyspnea on exertion, No shortness of breath, No sputum, No wheezing Cardiac: No chest pain, No palpitations Abdomen: No diarrhea, No nausea, No pain, No vomiting Denies all symptoms Medications Current Inpatient Medications Medications (Trade) Dose Ordered Sig/Aleksandra Route Start Time Stop Time Status Last Admin Dose Admin Miscellaneous (Iv Fluids Completed) 1 ea PRN PRN N/A 11/18/16 04:15 11/18/17 04:14 Amlodipine Besylate (Norvasc Tab) 5 mg BID PO 11/18/16 21:00 12/18/16 20:59 11/19/16 08:19 5 MG Carvedilol (Coreg Tab) 12.5 mg BID PO 11/18/16 21:00 12/18/16 20:59 11/19/16 08:19 12.5 MG Oxycodone/ Acetaminophen (Percocet 5-325mg Tab) pain not relieved by tyle... Q4H PRN PO 11/18/16 04:15 12/02/16 04:14 11/19/16 03:39 2 TAB Vitamin B Complex/ Vit C/Folic Acid (Nephrocaps) 1 cap QPM PO 11/18/16 21:00 12/18/16 20:59 11/18/16 20:42 1 CAP Sevelamer HCl (Renagel Tab) 800 mg UD PRN PO 11/18/16 04:15 12/18/16 04:14 Hydromorphone HCl (Dilaudid Inj) 0.5 mg Q3H PRN IV 11/18/16 04:15 12/02/16 04:14 11/18/16 14:17 0.5 MG Ondansetron HCl (Zofran Inj) 4 mg Q6H PRN IV 11/18/16 04:15 12/18/16 04:14 Lorazepam (Ativan Inj) 0.5 mg Q4H PRN IV 11/18/16 04:15 12/18/16 04:14 11/18/16 18:09 0.5 MG Doxycycline Hyclate (Vibramycin Cap) 100 mg BID PO 11/18/16 21:00 11/25/16 20:59 11/19/16 08:19 100 MG Albuterol/ Ipratropium (Duoneb) 3 ml Q2H PRN INH 11/18/16 04:15 12/18/16 04:14 Sevelamer HCl 1600 mg 1,600 mg TIDM PO 11/18/16 16:45 12/18/16 16:44 11/19/16 16:56 1,600 MG Heparin Sodium/ Dextrose 500 ml @ 32 mls/hr [id number] PRN IV 11/18/16 16:45 12/18/16 16:44 11/19/16 09:27 32 MLS/HR Epoetin Carlos Alberto/ Syringe (Procrit Inj/ Syringe) 0.3 ml @ 1 mls/min TODAY@1000 IV. 11/19/16 10:00 11/19/16 18:00 11/19/16 13:05 1 MLS/MIN Amiodarone HCl (Cordarone Tab) 200 mg BID PO 11/19/16 21:00 12/19/16 20:59 Heparin Sodium (Porcine) (Heparin Iv Bolus) 1,000 unit ONE IV 11/20/16 08:00 11/20/16 18:00 Heparin Sodium (Porcine) (Heparin Iv Bolus) 400 unit Q1H IV 11/20/16 08:00 11/20/16 10:01 Epoetin Carlos Alberto (Procrit Inj) 10,000 units ONE IV. 11/20/16 08:00 11/20/16 18:00 Objective Vital Signs Date Time Temp Pulse Resp B/P Pulse Ox O2 Delivery O2 Flow Rate FiO2 11/19/16 16:04 92 Room Air 11/19/16 13:36 36.5 79 161/58 11/19/16 13:30 63 157/62 11/19/16 13:15 69 161/60 11/19/16 13:00 66 150/61 11/19/16 12:45 68 163/69 11/19/16 12:30 62 160/71 11/19/16 12:15 67 154/65 11/19/16 12:00 69 147/70 11/19/16 11:45 66 162/69 11/19/16 11:30 72 159/68 11/19/16 11:15 82 157/93 11/19/16 11:00 74 162/72 11/19/16 10:45 80 159/63 11/19/16 10:30 75 150/64 11/19/16 10:15 86 162/75 11/19/16 10:00 99 159/79 11/19/16 09:45 79 168/62 11/19/16 09:30 89 173/67 11/19/16 09:15 36.8 72 162/68 11/19/16 07:50 36.8 79 20 165/81 92 Room Air 11/19/16 07:45 Room Air 11/19/16 04:07 37.3 67 18 154/74 95 Room Air 11/19/16 04:00 Room Air 11/18/16 23:59 Room Air 11/18/16 23:33 37.0 80 19 147/83 93 Room Air 11/18/16 20:00 Room Air 11/18/16 19:25 37.4 91 18 154/78 94 Room Air Physical Exam General Appearance: no apparent distress Respiratory/Chest: lungs clear, normal breath sounds, no respiratory distress, no accessory muscle use Cardiovascular: regular rate, rhythm, no edema, no murmur Neurologic/Psychiatric: no motor/sensory deficits, alert, normal mood/affect Laboratory Results Last 24 Hours Test 11/19/16 00:25 11/19/16 07:22 11/19/16 07:29 Activated Partial Thromboplast Time 45.5 SECONDS 47.9 SECONDS Partial Thromboplastin Ratio 1.8 1.8 White Blood Count 7.32 K/uL Red Blood Count 2.72 M/uL Hemoglobin 8.3 g/dL Hematocrit 25.3 % Mean Corpuscular Volume 93.0 fL Mean Corpuscular Hemoglobin 30.5 pg Mean Corpuscular Hemoglobin Concent 32.8 g/dl Platelet Count 154 K/uL Mean Platelet Volume 8.7 fL Neutrophils (%) (Auto) 63.0 % Lymphocytes (%) (Auto) 18.9 % Monocytes (%) (Auto) 15.0 % Eosinophils (%) (Auto) 2.9 % Basophils (%) (Auto) 0.1 % Neutrophils # (Auto) 4.61 K/uL Lymphocytes # (Auto) 1.38 K/uL Monocytes # (Auto) 1.10 K/uL Eosinophils # (Auto) 0.21 K/uL Basophils # (Auto) 0.01 K/uL RDW Standard Deviation 66.5 fL RDW Coefficient of Variation 19.3 % Immature Granulocyte % (Auto) 0.1 % Immature Granulocyte # (Auto) 0.01 K/uL Red Blood Cell Morphology Unremarkable Sodium Level 138 mmol/L Potassium Level 3.9 mmol/L Chloride Level 96 mmol/L Carbon Dioxide Level 25 mmol/L Anion Gap 17.0 mmol/L Blood Urea Nitrogen 47 mg/dl Creatinine 9.60 mg/dl Est Creatinine Clear Calc Drug Dose 9.2 ml/min Estimated GFR () 6.1 Estimated GFR (Non- 5.3 BUN/Creatinine Ratio 4.9 Random Glucose 95 mg/dl Calcium Level 7.3 mg/dl Magnesium Level 2.3 mg/dl Assessment and Plan This is a 61 year old male with PMH of ESRD on HD, anemia of chronic disease, uncontrolled HTN presents with chest pain and then developed A. Fib with RVR A. Fib with RVR 11/19 A. Fib converted to NSR amiodarone drip stopped and switched to amiodarone PO antibiotics discontinued IV heparin for now long-term anticoagulation may be an issue with low Hgb 11/18 new onset of atrial fibrillation HRs in the 160s given one dose of IV lopressor, HRs improved to the 120s-140s blood pressure dropped from 170s to 110s appreciate cardiology input amiodarone drip started heparin drip started Pleuritic Chest Pain patient with some pleuritic chest pain cardiac enzymes negative x 2 patient initially with a normal EKG now developed A. Fib noted to have some pericardial effusion seems like the pericardial effusion likely related to missed dialysis; uremia continue dialysis and manage Atrial fibrillation, chest pain improving Hyperkalemia 11/19 Potassium and Magnesium = wnl due to missed dialysis 11/18 likely due to missed dialysis session just had HD today, recheck potassium in AM ESRD on HD usually gets dialysis on Tuesday, , Tuesday? check electrolytes continue sevelamer Hypertensive Urgency patient's blood pressure is now on the lower end compliance is an issue; patient should be on amlodipine and coreg for blood pressure will monitor BP and adjust accordingly Anemia of Kidney Disease? Hgb is stable > 10, monitor DVT ppx IV heparin FULL CODE
[2016-11-19] MEDS: NEPHROCAPS PO SCH (20:08)
[2016-11-19] MEDS: AMIODARONE 200 MG TAB PO SCH (20:09)
[2016-11-20] VITALS (22 sets, daily range): BP systolic 136–191; BP diastolic 63–104; PULSE 63–98; TEMP 36.4–37.5; O2SAT 91–94
[2016-11-20] MEDS: HEPARIN 25,000 UNIT/500ML D5W 500 ML IV PRN (01:46)
[2016-11-20 06:21] LABS: BASO % 0.3 %; BASO ABS # 0.02 K/uL (0-0.2); EOS % 4.6 %; HEMATOCRIT 26.7 % (42-52); IG% 0.4 %; LYMPH % 17.7 %; LYMPH ABS # 1.37 K/uL (1.2-3.4); MEAN CORPUSCULAR HGB CONC 32.2 g/dl (32-36); MEAN PLATELET VOLUME 8.9 fL (7.4-10.4); MONO % 18.9 %; NEUT % 58.1 %; PLATELET COUNT 196 K/uL (130-400); RED BLOOD COUNT 2.87 M/uL (4.7-6.1); WHITE BLOOD COUNT 7.76 K/uL (4.8-10.8)
[2016-11-20 06:43] LABS: PARTIAL THROMBOPLASTIN RATIO 1.5
[2016-11-20 06:52] LABS: COMPLETE YES
[2016-11-20 07:09] LABS: BUN/CREATININE RATIO 4.8 (10-20); CALCIUM 7.7 mg/dl (8.5-10.1); CREATININE 7.1 mg/dl (0.60-1.40); POTASSIUM 3.6 mmol/L (3.5-5.1)
[2016-11-20] MEDS ORDERED: EPOETIN ALFA 10,000 UNITS/ML VIAL IV. SCH (08:00)
[2016-11-20] MEDS ORDERED: HEPARIN SOD (PORCINE) 1000 UNIT/ML 10 ML VIAL IV SCH ×2 (08:00)
[2016-11-20] MEDS ORDERED: CARVEDILOL 25 MG TAB PO SCH (09:00)
--- NOTE | 2016-11-20 09:19 | Dialysis Progress Note ---
Nephrology Dialysis Note Date of Service: Nov 20, 2016. Subjective pt seen and evaluated on dialysis this am; abd pain improved; dyspnea, chest discomfort resolved; no palpitations; anxious for hospital d/c as yesterday Objective Date Time Temp Pulse Resp B/P Pulse Ox O2 Delivery O2 Flow Rate FiO2 11/20/16 08:45 81 180/104 11/20/16 08:30 81 140/89 11/20/16 08:15 81 191/84 11/20/16 08:00 84 173/83 11/20/16 07:45 83 167/81 11/20/16 07:30 83 150/81 11/20/16 07:15 85 146/95 11/20/16 07:00 69 164/74 11/20/16 06:45 71 157/66 11/20/16 06:30 36.7 72 167/69 11/20/16 04:00 Room Air 11/20/16 03:35 37.1 84 18 153/68 92 Room Air 11/20/16 00:00 37.5 89 18 172/84 91 Room Air 11/19/16 23:59 Room Air 11/19/16 21:55 89 172/84 11/19/16 20:28 36.6 117 22 95/62 94 Room Air 11/19/16 20:00 Room Air 11/19/16 16:04 92 Room Air 11/19/16 13:36 36.5 79 161/58 11/19/16 13:30 63 157/62 11/19/16 13:15 69 161/60 11/19/16 13:00 66 150/61 11/19/16 12:45 68 163/69 11/19/16 12:30 62 160/71 11/19/16 12:15 67 154/65 11/19/16 12:00 69 147/70 11/19/16 11:45 66 162/69 11/19/16 11:30 72 159/68 11/19/16 11:15 82 157/93 11/19/16 11:00 74 162/72 11/19/16 10:45 80 159/63 11/19/16 10:30 75 150/64 11/19/16 10:15 86 162/75 11/19/16 10:00 99 159/79 11/19/16 09:45 79 168/62 11/19/16 09:30 89 173/67 Physical Exam: General-on RA oriented x 3 nad [place] ENT-poor dentition Neck-supple Lungs-diminished air entry; anterior exam on HD Heart-RRR; trace ble edema Abdomen-PD cath present; R sided guarding w/o rebound; + bs no fluid wave soft Extremities-no c/c Neuro-gotti, fluent speech Current Inpatient Medications Medications (Trade) Dose Ordered Sig/Aleksandra Route Start Time Stop Time Status Last Admin Dose Admin Miscellaneous (Iv Fluids Completed) 1 ea PRN PRN N/A 11/18/16 04:15 11/18/17 04:14 Amlodipine Besylate (Norvasc Tab) 5 mg BID PO 11/18/16 21:00 12/18/16 20:59 11/19/16 20:09 5 MG Oxycodone/ Acetaminophen (Percocet 5-325mg Tab) pain not relieved by tyle... Q4H PRN PO 11/18/16 04:15 12/02/16 04:14 11/19/16 03:39 2 TAB Vitamin B Complex/ Vit C/Folic Acid (Nephrocaps) 1 cap QPM PO 11/18/16 21:00 12/18/16 20:59 11/19/16 20:08 1 CAP Sevelamer HCl (Renagel Tab) 800 mg UD PRN PO 11/18/16 04:15 12/18/16 04:14 Hydromorphone HCl (Dilaudid Inj) 0.5 mg Q3H PRN IV 11/18/16 04:15 12/02/16 04:14 11/18/16 14:17 0.5 MG Ondansetron HCl (Zofran Inj) 4 mg Q6H PRN IV 11/18/16 04:15 12/18/16 04:14 Lorazepam (Ativan Inj) 0.5 mg Q4H PRN IV 11/18/16 04:15 12/18/16 04:14 11/18/16 18:09 0.5 MG Albuterol/ Ipratropium (Duoneb) 3 ml Q2H PRN INH 11/18/16 04:15 12/18/16 04:14 Sevelamer HCl 1600 mg 1,600 mg TIDM PO 11/18/16 16:45 12/18/16 16:44 11/19/16 16:56 1,600 MG Heparin Sodium/ Dextrose (Heparin 25,000 Unit/500ml D5W) 500 ml @ 32 mls/hr [id number] PRN IV 11/18/16 16:45 12/18/16 16:44 11/20/16 01:46 32 MLS/HR Amiodarone HCl (Cordarone Tab) 200 mg BID PO 11/19/16 21:00 12/19/16 20:59 11/19/16 20:09 200 MG Heparin Sodium (Porcine) (Heparin Iv Bolus) 1,000 unit ONE IV 11/20/16 08:00 11/20/16 18:00 Heparin Sodium (Porcine) (Heparin Iv Bolus) 400 unit Q1H IV 11/20/16 08:00 11/20/16 10:01 Epoetin Carlos Alberto (Procrit Inj) 10,000 units ONE IV. 11/20/16 08:00 11/20/16 18:00 Carvedilol (Coreg Tab) 25 mg BID PO 11/20/16 09:00 12/20/16 08:59 Last 24 Hours Test 11/20/16 05:55 White Blood Count 7.76 K/uL Red Blood Count 2.87 M/uL Hemoglobin 8.6 g/dL Hematocrit 26.7 % Mean Corpuscular Volume 93.0 fL Mean Corpuscular Hemoglobin 30.0 pg Mean Corpuscular Hemoglobin Concent 32.2 g/dl Platelet Count 196 K/uL Mean Platelet Volume 8.9 fL Neutrophils (%) (Auto) 58.1 % Lymphocytes (%) (Auto) 17.7 % Monocytes (%) (Auto) 18.9 % Eosinophils (%) (Auto) 4.6 % Basophils (%) (Auto) 0.3 % Neutrophils # (Auto) 4.51 K/uL Lymphocytes # (Auto) 1.37 K/uL Monocytes # (Auto) 1.47 K/uL Eosinophils # (Auto) 0.36 K/uL Basophils # (Auto) 0.02 K/uL RDW Standard Deviation 63.5 fL RDW Coefficient of Variation 18.8 % Immature Granulocyte % (Auto) 0.4 % Immature Granulocyte # (Auto) 0.03 K/uL Red Blood Cell Morphology Unremarkable Activated Partial Thromboplast Time 38.9 SECONDS Partial Thromboplastin Ratio 1.5 Sodium Level 138 mmol/L Potassium Level 3.6 mmol/L Chloride Level 100 mmol/L Carbon Dioxide Level 25 mmol/L Anion Gap 13.0 mmol/L Blood Urea Nitrogen 34 mg/dl Creatinine 7.10 mg/dl Est Creatinine Clear Calc Drug Dose 12.5 ml/min Estimated GFR () 8.8 Estimated GFR (Non- 7.6 BUN/Creatinine Ratio 4.8 Random Glucose 91 mg/dl Calcium Level 7.7 mg/dl Assessment & Plan 61 y/o M w/ ESRD, hx of nonadherence to medical recommendations, anemia of ESRD admitted for evaluation of chest pain and dyspnea and mgt of HTN urgency, hyperkalemia after missing dialysis on 11/16. ESRD -for HD today; assess for need daily; next HD on 11/23 as outpt Hyperkalemia -treated w/ HD yesterday; will ensure on renal diet; K acceptable w/ appropriate renla care HTN urgency / uremic pericarditis d/t nonadherence w/ medical tx -- sx improved w/ HD AF/F (new issue; developed after HD 11/18) cardiology following; BP and heart rhythm stabilized off of heparin / amio gtts ; poor anticoag candidate Anemia of ESRD for procrit on tx today; acceptable hgb but big drop ? if d/t heparin gtt R sided abd pain no explanation on CT scan except ? location of PD cath. notable is L sided nephrolithiasis however. >> PD fluid cx pending; would not hold up d/c for this result appreciate consult; will follow with you.
[2016-11-20] MEDS: SEVELAMER HYDROCH 800 MG TAB PO SCH (10:56)
[2016-11-20] MEDS: AMLODIPINE BESYLATE 5 MG TAB PO SCH (10:57)
[2016-11-20] MEDS: AMIODARONE 200 MG TAB PO SCH (10:57)
--- NOTE | 2016-11-20 12:39 | Progress Note ---
Subjective Date of Service: Nov 20, 2016. Subjective Pt evaluation today including: conversation w/ patient, physical exam, lab review, review of studies, conversation w/ business analysis consultant, review of inpatient medication list Saw/examined the patient in room 241 Eager to get home, denies chest pain/palpitations Problem List Medical Problems: (1) Abnormal EKG Status: Acute (2) Anemia Status: Acute (3) ARF (acute renal failure) Status: Acute (4) Chest wall pain Status: Acute (5) ESRD (end stage renal disease) Status: Chronic (6) Hyperkalemia Status: Acute (7) Pancreatitis Status: Acute (8) Renal failure Status: Acute (9) Upper GI bleed Status: Acute Review of Systems Constitutional: No chills, No fever Respiratory: No cough, No dyspnea at rest, No dyspnea on exertion, No hemoptysis, No shortness of breath, No sputum, No wheezing Cardiac: No chest pain, No edema, No palpitations Abdomen: No GI bleeding, No constipation, No diarrhea, No nausea, No pain, No vomiting Medications Current Inpatient Medications Medications (Trade) Dose Ordered Sig/Aleksandra Route Start Time Stop Time Status Last Admin Dose Admin Miscellaneous (Iv Fluids Completed) 1 ea PRN PRN N/A 11/18/16 04:15 11/18/17 04:14 Amlodipine Besylate (Norvasc Tab) 5 mg BID PO 11/18/16 21:00 12/18/16 20:59 11/20/16 10:57 5 MG Oxycodone/ Acetaminophen (Percocet 5-325mg Tab) pain not relieved by tyle... Q4H PRN PO 11/18/16 04:15 12/02/16 04:14 11/19/16 03:39 2 TAB Vitamin B Complex/ Vit C/Folic Acid (Nephrocaps) 1 cap QPM PO 11/18/16 21:00 12/18/16 20:59 11/19/16 20:08 1 CAP Sevelamer HCl (Renagel Tab) 800 mg UD PRN PO 11/18/16 04:15 12/18/16 04:14 Hydromorphone HCl (Dilaudid Inj) 0.5 mg Q3H PRN IV 11/18/16 04:15 12/02/16 04:14 11/18/16 14:17 0.5 MG Ondansetron HCl (Zofran Inj) 4 mg Q6H PRN IV 11/18/16 04:15 12/18/16 04:14 Lorazepam (Ativan Inj) 0.5 mg Q4H PRN IV 11/18/16 04:15 12/18/16 04:14 11/18/16 18:09 0.5 MG Albuterol/ Ipratropium (Duoneb) 3 ml Q2H PRN INH 11/18/16 04:15 12/18/16 04:14 Sevelamer HCl 1600 mg 1,600 mg TIDM PO 11/18/16 16:45 12/18/16 16:44 11/20/16 10:56 1,600 MG Heparin Sodium/ Dextrose (Heparin 25,000 Unit/500ml D5W) 500 ml @ 32 mls/hr [id number] PRN IV 11/18/16 16:45 12/18/16 16:44 11/20/16 01:46 32 MLS/HR Amiodarone HCl (Cordarone Tab) 200 mg BID PO 11/19/16 21:00 12/19/16 20:59 11/20/16 10:57 200 MG Heparin Sodium (Porcine) (Heparin Iv Bolus) 1,000 unit ONE IV 11/20/16 08:00 11/20/16 18:00 Epoetin Carlos Alberto (Procrit Inj) 10,000 units ONE IV. 11/20/16 08:00 11/20/16 18:00 11/20/16 10:00 10,000 UNITS Carvedilol (Coreg Tab) 12.5 mg BID PO 11/20/16 21:00 12/20/16 20:59 UNV Objective Vital Signs Date Time Temp Pulse Resp B/P Pulse Ox O2 Delivery O2 Flow Rate FiO2 11/20/16 11:57 Room Air 11/20/16 11:50 63 19 136/63 94 Room Air 11/20/16 11:34 36.4 98 16 162/79 93 Room Air 11/20/16 10:21 36.6 67 174/68 11/20/16 10:15 69 159/67 11/20/16 10:00 76 161/92 11/20/16 09:45 87 162/85 11/20/16 09:30 74 143/93 11/20/16 09:15 88 162/92 11/20/16 09:00 88 167/95 11/20/16 08:45 81 180/104 11/20/16 08:30 81 140/89 11/20/16 08:15 81 191/84 11/20/16 08:00 84 173/83 11/20/16 07:45 83 167/81 11/20/16 07:30 83 150/81 11/20/16 07:15 85 146/95 11/20/16 07:00 69 164/74 11/20/16 06:45 71 157/66 11/20/16 06:30 36.7 72 167/69 11/20/16 04:00 Room Air 11/20/16 03:35 37.1 84 18 153/68 92 Room Air 11/20/16 00:00 37.5 89 18 172/84 91 Room Air 11/19/16 23:59 Room Air 11/19/16 21:55 89 172/84 11/19/16 20:28 36.6 117 22 95/62 94 Room Air 11/19/16 20:00 Room Air 11/19/16 16:04 92 Room Air 11/19/16 13:36 36.5 79 161/58 11/19/16 13:30 63 157/62 11/19/16 13:15 69 161/60 11/19/16 13:00 66 150/61 11/19/16 12:45 68 163/69 Physical Exam General Appearance: no apparent distress Respiratory/Chest: chest non-tender, lungs clear, normal breath sounds, no respiratory distress, no accessory muscle use Cardiovascular: regular rate, rhythm, no edema, no murmur Abdomen: normal bowel sounds, non tender, soft Neurologic/Psychiatric: no motor/sensory deficits, alert, normal mood/affect Skin: normal color Laboratory Results Last 24 Hours Test 11/20/16 05:55 White Blood Count 7.76 K/uL Red Blood Count 2.87 M/uL Hemoglobin 8.6 g/dL Hematocrit 26.7 % Mean Corpuscular Volume 93.0 fL Mean Corpuscular Hemoglobin 30.0 pg Mean Corpuscular Hemoglobin Concent 32.2 g/dl Platelet Count 196 K/uL Mean Platelet Volume 8.9 fL Neutrophils (%) (Auto) 58.1 % Lymphocytes (%) (Auto) 17.7 % Monocytes (%) (Auto) 18.9 % Eosinophils (%) (Auto) 4.6 % Basophils (%) (Auto) 0.3 % Neutrophils # (Auto) 4.51 K/uL Lymphocytes # (Auto) 1.37 K/uL Monocytes # (Auto) 1.47 K/uL Eosinophils # (Auto) 0.36 K/uL Basophils # (Auto) 0.02 K/uL RDW Standard Deviation 63.5 fL RDW Coefficient of Variation 18.8 % Immature Granulocyte % (Auto) 0.4 % Immature Granulocyte # (Auto) 0.03 K/uL Red Blood Cell Morphology Unremarkable Activated Partial Thromboplast Time 38.9 SECONDS Partial Thromboplastin Ratio 1.5 Sodium Level 138 mmol/L Potassium Level 3.6 mmol/L Chloride Level 100 mmol/L Carbon Dioxide Level 25 mmol/L Anion Gap 13.0 mmol/L Blood Urea Nitrogen 34 mg/dl Creatinine 7.10 mg/dl Est Creatinine Clear Calc Drug Dose 12.5 ml/min Estimated GFR () 8.8 Estimated GFR (Non- 7.6 BUN/Creatinine Ratio 4.8 Random Glucose 91 mg/dl Calcium Level 7.7 mg/dl Assessment and Plan This is a 61 year old male with PMH of ESRD on HD, anemia of chronic disease, uncontrolled HTN presents with chest pain and then developed A. Fib with RVR A. Fib with RVR 11/20 amiodarone PO - appreciate cardiology input, may need to decrease dose switch IV heparin to Coumadin - INR check as outpatient episode of bradycardia, decreased b-edith 11/19 A. Fib converted to NSR amiodarone drip stopped and switched to amiodarone PO antibiotics discontinued IV heparin for now long-term anticoagulation may be an issue with low Hgb 11/18 new onset of atrial fibrillation HRs in the 160s given one dose of IV lopressor, HRs improved to the 120s-140s blood pressure dropped from 170s to 110s appreciate cardiology input amiodarone drip started heparin drip started Pleuritic Chest Pain patient with some pleuritic chest pain cardiac enzymes negative x 2 patient initially with a normal EKG now developed A. Fib noted to have some pericardial effusion seems like the pericardial effusion likely related to missed dialysis; uremia continue dialysis and manage Atrial fibrillation, chest pain improving Hyperkalemia 11/19 Potassium and Magnesium = wnl due to missed dialysis 11/18 likely due to missed dialysis session just had HD today, recheck potassium in AM ESRD on HD usually gets dialysis on Tuesday, , Tuesday? check electrolytes continue sevelamer Hypertensive Urgency patient's blood pressure is now on the lower end compliance is an issue; patient should be on amlodipine and coreg for blood pressure will monitor BP and adjust accordingly Anemia of Kidney Disease Hgb = 8.6 procrit with dialysis DVT ppx IV heparin FULL CODE
[2016-11-20] MEDS ORDERED: CRD200 PO (13:23)
[2016-11-20] MEDS ORDERED: CMD5 PO (13:25)
--- NOTE | 2016-11-20 13:32 | Discharge Instructions ---
Discharge Instructions Date of Service Nov 20, 2016. Admission Reason for Admission: Chest Pain, Hyperkalemia Discharge Discharge Diagnosis / Problem: Chest Pain, A. Fib with RVR, ESRD on HD, hyperkalemia Discharge Goals Goal(s): Decrease discomfort, Improve function Activity Recommendations Activity Limitations: resume your previous activity . Instructions / Follow-Up Instructions / Follow-Up Please follow-up with Dr. Lynch on November 23 @ 11:00AM You will be started on amiodarone 200mg once daily You will be started on Coumadin - take 5mg daily - you must have INR checked early next week and dose adjusted (you will get a phone call with an appointment date/time) Current Hospital Diet Patient's current hospital diet: Renal Diet, AHA Diet (Heart Healthy), Low Sodium Diet (2gm Na) Discharge Diet Recommended Diet: Low Sodium Diet (2gm Na), Renal Diet Pending Studies Studies pending at discharge: no Medical Emergencies . Who to Call and When: Medical Emergencies: If at any time you feel your situation is an emergency, please call 911 immediately. . Non-Emergent Contact Non-Emergency issues call your: Primary Care Provider . . "Provider Documentation" section prepared by Sp Carney. VTE Core Measure Inpt VTE Proph given/why not?: Other Anticoagulation
--- NOTE | 2016-11-20 13:35 | Discharge Summary ---
Discharge Summary Date of Service Nov 20, 2016. Discharge Summary Admission Date: Nov 18, 2016 at 04:03 Discharge Date: Nov 20, 2016 Discharge Disposition: Home Principal Diagnosis: Chest Pain A. Fib with RVR ESRD on HD Hyperkalemia Pericardial Effusion Medication Reconciliation New Medications: Warfarin Sod (Coumadin) 5 Mg Tab 5 MG PO DAILY for 30 Days, #30 TABS Amiodarone HCl (Amiodarone HCl) 200 Mg Tab 200 MG PO DAILY for 30 Days, #30 TAB Continued Medications: Amlodipine (Norvasc) 5 Mg Tab 5 MG PO BID, TAB Carvedilol (Coreg) 12.5 Mg Tab 12.5 MG PO BID Epoetin Carlos Alberto (Procrit) 2,000 Units Inj 89993 UNITS INJ 3XWK GIVE ON TUESDAYS,THURSDAYS AND SATURDAYS IN DIALYSIS Sevelamer Carbonate (Renvela) 800 Mg Tab 800 MG PO TIDM, 3 Refills Sevelamer Carbonate (Renvela) 800 Mg Tab 800 MG PO UD PRN for WITH SNACKS for 90 Days, 3 Refills Vitamin B Cmplx/Vitc/Folic Ac (Nephrocaps) Cap 1 CAP PO QPM, CAP Discontinued Medications: Oxycodone/Acetaminophen 5MG/325MG (Percocet 5MG/325MG) Tab 1-2 TABLETS PO Q4H PRN for Pain, #30 TAB PAIN Admission Information Physical Exam (per Admitting): DATE OF ADMISSION: 11/18/2016 PRIMARY CARE DOCTOR: Dr. Lynch. Hx obtained from px and records. CHIEF COMPLAINT: Chest pain. HISTORY OF PRESENT ILLNESS: Medical history significant for hypertension, end-stage renal disease on hemodialysis, past tobacco abuse, chronic anemia (baseline hemoglobin 8-9). Recent confinement last October 2016 for hypertensive urgency. Last 10/28/2016 patient had insertion of CAPD catheter by Dr. Boyce in same day surgery. Postop some achy discomfort on the right abdomen, still present. On follow up with his vascular surgeon he was told that he may need a CAT scan of the abd pelvis if symptoms persist. A few days ago patient noted cough symptoms productive of junky sputum. Was around sick contacts. He later noted pleuritic chest pain, worse on the supine position with some shortness of breath. Legs noted to be swollen. Patient missed dialysis 2 days ago due to inclement weather. No chills. No aspiration. MEDICAL HISTORY: As above. Seen by [facility] for preop eval for proposed kidney transplant last 2016. Plan was resting echo to further assess cardiac function and then consideration for a stress test. 2D echo done at that time showed EF 55-60%, LVH, grade 1 diastolic dysfunction, severe left atrial enlargement, mild mitral annular calcification. SURGERIES: He has had vascular procedures, dental surgery. HOME MEDICATIONS: Norvasc, Coreg, Procrit, Renvela, Nephrocaps. ALLERGIES: No known drug allergies. FAMILY HISTORY: There is a family history of diabetes, heart disease. PERSONAL AND SOCIAL HISTORY: Past tobacco, no chronic alcohol use. 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 REVIEW OF SYSTEMS: As per HPI, all other ROS negative. PHYSICAL EXAMINATION: VITAL SIGNS: Blood pressure was noted to be 180/102, pulse rate 82, RR 20, temperature 36.6, sats 97 on room air. GENERAL: Noted to be obese, no respiratory distress. SKIN: Sallow. HEENT: Pale palpebral conjunctivae. Dry mucosa. NECK: No JVD. Supple. CHEST: Decreased breath sounds. No anterior chest wall tenderness. HEART: Regular rate and rhythm. ABDOMEN: Some distention. Catheter ports noted in place. No overt tenderness. EXTREMITIES: Bilateral lower extremity edema. no tenderness NEUROLOGIC: No gross focality. LABS: Hemoglobin was noted to be 10.7, hematocrit 32.3, white cell count 11.6, platelets 322. Sodium 133, potassium 6.3, chloride 102, CO2 19, BUN 106, creatinine 16, glucose was noted to be 127. ESR was noted to be 61. D-dimer abnormal. Chest x-ray min congestion, atelectasis. EKG rate 85, normal sinus rhythm, LVH, peaked T waves, no ischemia. ASSESSMENT: 1. Atypical chest pain. Differentials include uremic pericarditis versus pulmonary embolism. 2. Complicated bronchitis. No sepsis. 3. Hypertensive urgency secondary to missed medication, discomfort. 4. End-stage renal disease on hemodialysis. 5. Hyperkalemia secondary to missed dialysis 6. Past tobacco abuse. 7. leg swelling ro dvt PLAN: PCU, analgesia TTE, VQ scan LE venous Dopplers to rule out DVT Further management pending workup results. Doxycycline for complicated bronchitis. facilitate missed nighttime BP meds Nephrology consult RE dialysis management. Monitor potassium after initial intervention at the ER DVT prophylaxis Heparin subQ. Full code. Hospital Course This is a 61 year old male with PMH of ESRD on HD, anemia of chronic disease, uncontrolled HTN presents with chest pain and then developed A. Fib with RVR A. Fib with RVR 11/20 amiodarone PO - appreciate cardiology input, may need to decrease dose switch IV heparin to Coumadin - INR check as outpatient episode of bradycardia, decreased b-edith 11/19 A. Fib converted to NSR amiodarone drip stopped and switched to amiodarone PO antibiotics discontinued IV heparin for now long-term anticoagulation may be an issue with low Hgb 11/18 new onset of atrial fibrillation HRs in the 160s given one dose of IV lopressor, HRs improved to the 120s-140s blood pressure dropped from 170s to 110s appreciate cardiology input amiodarone drip started heparin drip started Pleuritic Chest Pain patient with some pleuritic chest pain cardiac enzymes negative x 2 patient initially with a normal EKG now developed A. Fib noted to have some pericardial effusion seems like the pericardial effusion likely related to missed dialysis; uremia continue dialysis and manage Atrial fibrillation, chest pain improving Hyperkalemia 11/19 Potassium and Magnesium = wnl due to missed dialysis 11/18 likely due to missed dialysis session just had HD today, recheck potassium in AM ESRD on HD usually gets dialysis on Tuesday, , Tuesday? check electrolytes continue sevelamer Hypertensive Urgency patient's blood pressure is now on the lower end compliance is an issue; patient should be on amlodipine and coreg for blood pressure will monitor BP and adjust accordingly Anemia of Kidney Disease Hgb = 8.6 procrit with dialysis DVT ppx IV heparin FULL CODE Total time spent on discharge = 55 minutes This includes examination of the patient, discharge planning, medication reconciliation, and communication with other providers. Discharge Instructions Please follow-up with Dr. Lynch on November 23 @ 11:00AM You will be started on amiodarone 200mg once daily You will be started on Coumadin - take 5mg daily - you must have INR checked early next week and dose adjusted (you will get a phone call with an appointment date/time)
--- NOTE | 2016-11-20 15:06 | PROGRESS NOTE ---
DATE: 11/20/2016 FOLLOWUP VISIT SUBJECTIVE: The patient completed his third day of dialysis today. He has no complaints. He has not had a recurrence of his atrial fibrillation since his initial presentation. OBJECTIVE: GENERAL: He is alert and oriented in no acute distress. VITAL SIGNS: Blood pressure 136/63, pulse is regular at 63. He is afebrile. HEENT: Normocephalic. Pupils are equal and reactive to light. Extraocular muscles are intact bilaterally. NECK: The neck veins are flat. Carotids have good upstrokes bilaterally without bruits. Thyroid is nonpalpable. RESPIRATORY: Breath sounds are equal bilaterally and clear to auscultation. CARDIOVASCULAR: Heart has a regular rhythm. Normal S1, S2. No S3, S4. No cardiac rubs or murmurs. GASTROINTESTINAL: Abdomen is soft, nontender without organomegaly. EXTREMITIES: Free of edema, digit clubbing, or cyanosis. NEUROLOGIC: Grossly intact. SKIN: Warm to touch. LYMPH NODES: Negative to palpation. LABORATORY DATA: Hemoglobin is 8.6, potassium is 3.6. IMPRESSION: 1. Paroxysmal atrial fibrillation. 2. End-stage renal disease, on hemodialysis, planning to switch over to peritoneal dialysis. 3. Uremic pericarditis. RECOMMENDATIONS: The patient's dose of amiodarone will be lowered to 200 a day. As an outpatient, he will be started on warfarin and monitored through the [facility]. He will have to have followup with us in 3-4 weeks.
[2016-11-20] MEDS ORDERED: CARVEDILOL 12.5 MG TAB PO SCH (21:00)
[2016-11-21] MEDS ORDERED: AMIODARONE 200 MG TAB PO SCH (09:00)
[2016-12-09] MEDS ORDERED: LEVO-17 PO (06:57)
[2016-12-18] MEDS ORDERED: ASPI81CH2 PO (13:16)
[2016-12-18] MEDS ORDERED: PRLSR20 PO (13:16)
[2017-04-28] MEDS ORDERED: CALC500C3 PO ×2 (13:31)
[2017-04-28] MEDS ORDERED: BND25 PO (13:33)
[2017-04-28] MEDS ORDERED: CINA0.42 PO (13:34)
[2017-06-02] MEDS ORDERED: AMIO200T4 PO (11:36)
[2017-06-02] MEDS ORDERED: ALLO100T PO (11:36)
[2017-06-02] MEDS ORDERED: HYDR100T12 PO (11:36)
[2017-06-02] MEDS ORDERED: VELPHORO PO ×2 (11:36)
[2017-06-02] MEDS ORDERED: FURO80TA63 PO (11:36)
[2017-06-02] MEDS ORDERED: MAGNESIUM PO (11:36)
[2017-06-02] MEDS ORDERED: SUCR5CHW PO ×2 (11:36)
[2017-06-02] MEDS ORDERED: B-CO1CAP17 PO (11:36)
[2017-06-02] MEDS ORDERED: CARV12.5 PO (11:36)
[2017-06-02] MEDS ORDERED: PRED10TA PO (11:37)
== END 2016-11-20 15:04 | disposition home or self-care (01) | DRG 682 ==
LOC: ENRESERVTM → ENRESERVDT → C.EDB 00:57 → C.2T 04:03
PROVIDERS: ADMIT Internal Medicine; ATTEND Family Medicine
DX: I12.0 Hypertensive chronic kidney disease with stage 5 chronic kidney disease or end stage renal disease (principal); N18.6 End stage renal disease; I32 Pericarditis in diseases classified elsewhere; I48.0 Paroxysmal atrial fibrillation; J20.9 Acute bronchitis, unspecified; R09.1 Pleurisy; R94.31 Abnormal electrocardiogram [ECG] [EKG]; I16.0 Hypertensive urgency; Z91.14 Patient's other noncompliance with medication regimen; E87.5 Hyperkalemia; Z91.15 Patient's noncompliance with renal dialysis; M79.89 Other specified soft tissue disorders; D63.1 Anemia in chronic kidney disease; R10.11 Right upper quadrant pain; R10.31 Right lower quadrant pain; N20.0 Calculus of kidney; Z99.2 Dependence on renal dialysis; Z87.891 Personal history of nicotine dependence; I25.2 Old myocardial infarction; Z79.899 Other long term (current) drug therapy; Z83.3 Family history of diabetes mellitus; Z82.49 Family history of ischemic heart disease and other diseases of the circulatory system

== ENCOUNTER 2016-12-14 04:40 | Inpatient (IN) | payer OTHER ==
[2016-12-14] VITALS (40 sets, daily range): BP systolic 95–280; BP diastolic 61–143; PULSE 79–129; TEMP 36.3–36.5; O2SAT 94–100; Ht 175.3 cm; Wt 88.3 kg
[~2016-12-14] VITALS: Ht 175.3 cm; Wt 88.3 kg
[~2016-12-14 04:40] MED LIST changes: +B-CO1CAP17 PO; +CMD5 PO; +CRD200 PO; -ESZO1TAB6 PO; +LEVO-17 PO; -OXYC-57 PO; -SEVE1TAB PO; +SEVE800T7 PO
[2016-12-14] MEDS ORDERED: LORAZEPAM 2 MG/ML 1 ML VIAL IV STA (05:01)
[2016-12-14] MEDS ORDERED: SODIUM CHLORIDE 0.9% 1000ML 1,000 ML IV STA (05:01)
--- NOTE | 2016-12-14 05:03 | EMERGENCY ROOM VISIT NOTE ---
History Report prepared by Donell: Lazarus Tang Under the Supervision of: Dr. Daryl Richey M.D. First contact with patient: 04:53 Chief Complaint: BACK PAIN Stated Complaint: BACK PAIN,VOMITING History of Present Illness The patient is a 61 year old male who presents to the Emergency Room with complaints of persistent upper back pain that started two days ago. The pain is worse on the left side.The pain is severe, to the point that he had to leave work yesterday. The pain was somewhat relieved after using a heating pad, and feels very similar to past musculoskeletal back pain. The patient started to experience nausea and vomiting last night. He has not taken anything for nausea. He started to experience abdominal pain last night. He has been feeling very weak for the past day or two. He denies chest pain or shortness of breath, but notes that he has been coughing up phlegm. The patient receives dialysis, and was supposed to have it this morning. He is on Coumadin. Source of History: patient Onset: two days ago Position: back (upper) Symptom Intensity: severe Timing: other (persistent) Modifying Factors (Relieving): other (heating pad) Associated Symptoms: + abdominal pain, + cough, + nausea, + vomiting, + weakness, No SOB, No chest pain Review of Systems See HPI for pertinent positives & negatives. A total of 10 systems reviewed and were otherwise negative. Past Medical & Surgical Medical Problems: (1) Anemia due to chronic kidney disease (2) Chest pain (3) ESRD (end stage renal disease) (4) GI bleed (5) HTN (hypertension) (6) Hyperkalemia (7) NSTEMI (non-ST elevated myocardial infarction) Surgical Problems: (1) H/O colonoscopy (2) History of dental surgery (3) History of esophagogastroduodenoscopy (EGD) (4) [place] teeth extracted Family History Diabetes mellitus FATHER FH: CHF (congestive heart failure) FATHER Hypertension FATHER Social History Smoking Status: Former Smoker Alcohol Use: occasionally Drug Use: none Marital Status: Housing Status: lives with significant other Occupation Status: employed Current/Historical Medications Scheduled Amiodarone HCl (Amiodarone HCl), 200 MG PO DAILY Amlodipine (Norvasc), 5 MG PO BID Borage (Borago Officinalis) (Borage 1000), 1,000 MG PO UD Calcium Acetate (Phoslo 667 Mg), 1 CAP PO WM Carvedilol (Coreg), 12.5 MG PO BID Epoetin Carlos Alberto (Procrit), 10,000 UNITS INJ 3XWK Levofloxacin (Levaquin), MG PO UD Mometasone Furoate (Nasal) (Mometasone Furoate), 2 SPRY RAFAEL DAILY Patiromer Sorbitex Calcium (Veltassa), 8.4 GM PO DAILY Warfarin Sod (Coumadin), 5 MG PO DAILY Scheduled PRN Albuterol Hfa (Ventolin Hfa), 2 PUFFS INH Q4 PRN for Wheezing Eszopiclone (Lunesta), 1 MG PO HS PRN for Sleep Allergies Coded Allergies: No Known Allergies (Unverified , 12/14/16) Physical Exam Vital Signs Date Time Temp Pulse Resp B/P Pulse Ox O2 Delivery O2 Flow Rate FiO2 12/14/16 06:41 91 17 165/97 100 12/14/16 05:47 91 16 169/79 87 Room Air 12/14/16 05:22 92 12/14/16 04:44 36.4 85 20 151/84 95 Room Air Physical Exam GENERAL: Patient is ill appearing, in mild distress, periodically dry having violently. HEENT: No acute trauma, normocephalic atraumatic, mucous membranes moist, no nasal congestion, no scleral icterus. NECK: No stridor, no adenopathy, no meningismus, trachea is midline. CHEST: Dialysis port right upper chest. LUNGS: No dyspnea. Absent breath sounds on the left side. No wheeze, no rhonchi. HEART: Regular rate and rhythm. No murmurs, rubs, gallops appreciated. ABDOMEN: Mildly distended, nontender. Peritoneal dialysis port in place. BACK: No midline tenderness, no CVA tenderness. Tender to palpation over the left thoracic back. EXTREMITIES: Normal motion all extremities, no cyanosis, no edema. NEUROLOGIC: Alert and oriented, no acute motor or sensory deficits, no focal weakness, cranial nerves grossly intact. SKIN: No rash, no jaundice, no diaphoresis. Medical Decision & Procedures ER Provider Diagnostic Interpretation: X ray results are stated below per my interpretation. Chest One View Portable: Massive left-sided effusion with complete collapse of left lung, significant midline shift to the right with loss of right lung volume. Radiology results and stated below per my review and radiologist interpretation: CT CHEST WITHOUT CONTRAST: Compared to CT Abdomen & Pelvis 11/18/16. Interval appearance of a large left pleural effusion which is loculated. Near complete collapse of the left lung. Mass effect with mild rightward shift of the heart and mediastinum. Small pericardial effusion. Mild right lung base atelectasis. Prominent heterogenous thyroid gland. Right internal jugular venous catheter. Radiologist: Adrian Brown MD. Laboratory Results 12/14/16 05:03 Red Blood Count 2.16, Mean Corpuscular Volume 93.5, Mean Corpuscular Hemoglobin 29.6, Mean Corpuscular Hemoglobin Concent 31.7, Mean Platelet Volume 8.8, Neutrophils (%) (Auto) 88.5, Lymphocytes (%) (Auto) 6.7, Monocytes (%) (Auto) 3.7, Eosinophils (%) (Auto) 0.1, Basophils (%) (Auto) 0.1, Neutrophils # (Auto) 14.59, Lymphocytes # (Auto) 1.10, Monocytes # (Auto) 0.61, Eosinophils # (Auto) 0.01, Basophils # (Auto) 0.01 12/14/16 05:03 Test 12/14/16 05:00 12/14/16 05:03 12/14/16 05:08 12/14/16 05:30 Gastric Fluid pH 2 Gastric Fluid Occult Blood NEG (NEG) White Blood Count 16.46 K/uL (4.8-10.8) Red Blood Count 2.16 M/uL (4.7-6.1) Hemoglobin 6.4 g/dL (14.0-18.0) Hematocrit 20.2 % (42-52) Mean Corpuscular Volume 93.5 fL (80-100) Mean Corpuscular Hemoglobin 29.6 pg (25-34) Mean Corpuscular Hemoglobin Concent 31.7 g/dl (32-36) Platelet Count 360 K/uL (130-400) Mean Platelet Volume 8.8 fL (7.4-10.4) Neutrophils (%) (Auto) 88.5 % Lymphocytes (%) (Auto) 6.7 % Monocytes (%) (Auto) 3.7 % Eosinophils (%) (Auto) 0.1 % Basophils (%) (Auto) 0.1 % Neutrophils # (Auto) 14.59 K/uL (1.4-6.5) Lymphocytes # (Auto) 1.10 K/uL (1.2-3.4) Monocytes # (Auto) 0.61 K/uL (0.11-0.59) Eosinophils # (Auto) 0.01 K/uL (0-0.5) Basophils # (Auto) 0.01 K/uL (0-0.2) RDW Standard Deviation 66.9 fL (36.4-46.3) RDW Coefficient of Variation 19.5 % (11.5-14.5) Immature Granulocyte % (Auto) 0.9 % Immature Granulocyte # (Auto) 0.14 K/uL (0.00-0.02) Polychromasia 1+ Est Creatinine Clear Calc Drug Dose 7.4 ml/min Estimated GFR () 4.6 Estimated GFR (Non- 4.0 BUN/Creatinine Ratio 8.2 (10-20) Calcium Level 8.7 mg/dl (8.5-10.1) Magnesium Level 2.6 mg/dl (1.8-2.4) Total Creatine Kinase 52 U/L (39-308) Creatine Kinase MB 1.4 ng/ml (0.5-3.6) Creatine Kinase MB Ratio 2.7 (0-3.0) Troponin I < 0.015 ng/ml (0-0.045) Bedside Hemoglobin 6.5 g/dl (14.0-18.0) Bedside Hematocrit 19 % (42-52) Bedside Sodium 131 mEq/L (135-144) Bedside Potassium 7.4 mEq/L (3.3-5.0) Bedside Chloride 101 mEq/L (101-112) Bedside Total CO2 19 mEq/l (24-31) Anion Gap 19.0 mmol/L (16-25) Bedside Blood Urea Nitrogen 103 mg/dl (7-18) Bedside Creatinine 11.5 mg/dl (0.6-1.3) Bedside Glucose (other) 144 mg/dl (70-99) Bedside Ionized Calcium (Marilin) 1.08 mmol/l (1.12-1.32) Prothrombin Time > 100.0 SECONDS Prothromb Time International Ratio > 8.0 (0.9-1.1) Activated Partial Thromboplast Time 51.4 SECONDS (21.0-31.0) Partial Thromboplastin Ratio 2.0 Laboratory results as reviewed by me. Medications Administered Medications (Trade) Dose Ordered Sig/Aleksandra Route Start Time Stop Time Status Last Admin Dose Admin Lorazepam 1 mg 1 mg NOW STAT IV 12/14/16 05:01 12/14/16 05:03 DC 12/14/16 05:26 1 MG Sodium Chloride (Nss 1000ml) 1,000 ml @ 75 mls/hr [id number] STAT IV 12/14/16 05:01 12/14/16 18:20 12/14/16 05:01 75 MLS/HR Dextrose (Dextrose 50% 50ML Syringe) 50 ml NOW STAT IV 12/14/16 05:12 12/14/16 05:14 DC 12/14/16 05:29 50 ML Insulin Human Regular (novoLIN-R U-100 PER UNIT) 10 units NOW STAT IV 12/14/16 05:12 12/14/16 05:14 DC 12/14/16 05:38 10 UNITS Calcium Gluconate (Calcium Gluconate 10%) 1,000 mg NOW STAT IV 12/14/16 05:12 12/14/16 05:14 DC 12/14/16 05:34 1,000 MG Sodium Bicarbonate 50 ml 50 ml NOW STAT IV 12/14/16 05:12 12/14/16 05:14 DC 12/14/16 05:27 50 ML Pantoprazole Sodium/Dextrose (Protonix Inj/D5 100ml) 120 ml @ 480 mls/hr TODAY@0615 IV 12/14/16 06:15 12/14/16 06:29 DC 12/14/16 06:26 480 MLS/HR ECG Indication: back/shoulder pain Rate (beats per minute): 82 Rhythm: normal sinus Findings: T-wave inversion (Anterolateral), other (peaked T waves) Change: T wave inversions in anterior lateral leads is new compared to EKG dated 19 November 2016. ED Course 0454: The patient was evaluated in room B10. A complete history and physical exam was performed. 0501: NSS 1000 ml @ 75 mls/hr, Ativan 1 mg IV. 0512: Sodium Bicarbonate 50 ml IV, Calcium Gluconate 1000 mg IV, Insulin Human Regular 10 units IV, 0512: Dextrose 50 ml IV. 0515: Protonix 80 mg / syringe 20 ml @ 5 mls/min. 0520: Checked on the patient. 0530: The patient feels like he is going to have a diarrheal bowel movement. Two large bore IVs placed. 0536: Discuss[facility] the case [facility] Matias[facility] She agrees with current treatment plan. She will get the dialysis team ready. The Board Certified Behavioral Analyst is being paged. 0550: Discussed the case Dr. Cannon, Board Certified Behavioral Analyst. The patient will be evaluated. 0615: Protonix 80 mg / dextrose 120 ml @ 480 mls/hr. 0630: Phytonadione 10 mg / NSS 51 ml @ 102 mls/hr. 0630: Critical Care at bedside. 0650: Patient admitted to the ICU through the [facility] service. 0637: Discussed the case with Dr. Rivero, [facility] Hospitalist. She is aware. 0645: Discussed the case with Dr. Espinoza, Supervisor Pre Wave. Medical Decision Differential: Gastroenteritis, Food Borne, Esophageal Perforation, , Electrolyte Abnormality, Dehydration, Intraabdominal Infection, UTI/ Pyelonephritis, Bowel Obstruction, Biliary Pathology, amongst other pathology entertained. 61 yr old male with ESRD, CAD, anemia, HTN, parox AFib on Coumadin who started dialysis right chest 1 month ago. Multiple recent admits for hyper K, chest pain and hypertensive urgency. Arrives with generalized weakness, severe vomiting, shob, cough, left posterior back pain. Symptoms rapidly progressing over last 3 days and patient notes minimal sleep. Notes laying flat and any exertion makes worse. On initial evaluation he is continuously vomiting/dry heaving red tinged clear emesis. He is severely ill appearing and very unwell. Two large bore IVs obtained. Labs drawn. EKG obtained showing peaked T and some T wave inversions. CXR ordered. With his history IV obtained and immediately given IV Ativan as concern of using Zofran, phenergan. This worked very well, patient feeling better and comfortable. Awake and interacting. We discussed HyperK and EKG changes and reviewed treatment plan which he agrees. Calcium, Bicarb, Insulin, Glucose ordered. His Communications Tech was paged. We discussed his anemia and need for transfusion, especially given his blood in emesis. Patient and agree to blood transfusion. 2 Units PRBC ordered for transfusion at this time. Protonix bolus ordered, though will hold on gtt to maintain open lines. Discussed with Communications Tech, we will go ahead with CT without con, avoid any kayexalate, and she will get in touch with dialysis to get this done urgently. CXR with large left pleural effusion which is new. Went ahead with CT to further evaluate though unable to use contrast given his renal failure ( discussed with his Communications Tech regarding this). Loculated left pleural effusion noted. Unclear etiology of this effusion, obvious concern being blood given how rapidly it has increased. On return from CT patient clearly becoming more somnolent though awakens. Respiratory decreasing though O2 staying OK on NC. I discussed with his likelihood of intubation and she understands this may need to happen though for now we will hold off. Suspect with electrolyte shifts along with laying flat in CT he has decompensated a bit more as well. Back pain left paraspinal thoracic which patient makes clear is MSK and similar to what he regularly gets and is resolved with heating pad. Without contrast obviously can not see if dissection though his pain is not consistent with this. Could be cardiac pain but again he states this is not like previous NSTEMI. Not PE with elevated INR. Notes some abdominal discomfort with vomiting though at rest without abdo pain. INR finally return > 8. Given active upper GI bleed, new left effusion, impending chest tube will give KCentra along with vitamin K. Throughout this I was in close contact with critical care and hospitalist, along with conversations with hematology and nephrology. CCM at bedside and will take to ICU prior to chest tube. Consults Time Called: 0530 Consulting Physician: Opal Haneygeovani Returned Call: 0536 0536: Discussed the case with Opal Haney. She agrees with current treatment plan. She will get the dialysis team ready. Additional Consults: Time Called: 0538 Consulted Physician: Dr. Cannon, Board Certified Behavioral Analyst. Returned Call: 0550 Additional Comments: 0550: Discussed the case Dr. Cannon, Board Certified Behavioral Analyst. The patient will be evaluated. Time Called: 0630 [facility] Returned Call: 0637 Additional Comments: 0637: Discussed the case with Opal Bedoya. She is aware. Impression Primary Impression: Hyperkalemia Additional Impressions: Anemia GI bleed Supratherapeutic INR Altered mental status Pleural effusion, left Pericardial effusion without cardiac tamponade Electrocardiogram showing T wave abnormalities Critical Care I have personally spent greater than 140 minutes of critical care time in the direct management of this patient. This was a life/limb threatening event. This includes time spent evaluating patient, direct bedside care, chart review, placing orders, interpretation of diagnostic studies, discussion with consultants, patient, and family members, as well as other required patient management activities. This 140 minutes is in excess of all separately billable procedures. Scribe Attestation The scribe's documentation has been prepared under my direction and personally reviewed by me in its entirety. I confirm that the note above accurately reflects all work, treatment, procedures, and medical decision making performed by me. Departure Information Dispostion Other (Being Evaluated By Board Certified Behavioral Analyst) Referrals Emily Lynch M.D. (PCP) Patient Instructions [facility] Problem Qualifiers Additional Impressions: Anemia Anemia type: other cause Other causes of anemia: acute posthemorrhagic Qualified Codes: D62 - Acute posthemorrhagic anemia GI bleed GI bleed type/associated pathology: gastrointestinal hemorrhage with hematemesis Qualified Codes: K92.0 - Hematemesis Altered mental status Altered mental status type: disorientation Qualified Codes: R41.0 - Disorientation, unspecified
[2016-12-14] MEDS ORDERED: SODIUM BICARB 8.4% INJ 50 MEQ/50 ML SYR IV STA (05:12)
[2016-12-14] MEDS ORDERED: NovoLIN-R INSULIN PER UNIT CHARGE IV STA (05:12)
[2016-12-14] MEDS ORDERED: DEXTROSE 50% 50 ML SYR IV STA (05:12)
[2016-12-14] MEDS ORDERED: CALCIUM GLUCONATE 10% 10 ML VIAL IV STA (05:12)
[2016-12-14] MEDS ORDERED: PANTOprazole INJ 80 MG in SYRINGE 0 ML IV ONE (05:15)
[2016-12-14 05:23] LABS: ISTAT CREATININE 11.5 mg/dl (0.6-1.3); ISTAT HEMOGLOBIN 6.5 g/dl (14.0-18.0); ISTAT IONIZED CALCIUM 1.08 mmol/l (1.12-1.32)
[2016-12-14 05:31] LABS: GASTRIC OCCULT BLOOD NEG (NEG); GASTRIC OCCULT BLOOD PH 2
[2016-12-14 05:50] LABS: HEMATOCRIT 20.2 % (42-52); MEAN CELL VOLUME 93.5 fL (80-100); MEAN CORPUSCULAR HEMOGLOBIN 29.6 pg (25-34); MEAN CORPUSCULAR HGB CONC 31.7 g/dl (32-36); MEAN PLATELET VOLUME 8.8 fL (7.4-10.4); PLATELET COUNT 360 K/uL (130-400); RED BLOOD COUNT 2.16 M/uL (4.7-6.1); WHITE BLOOD COUNT 16.46 K/uL (4.8-10.8)
[2016-12-14 05:52] LABS: BASO % 0.1 %; BASO ABS # 0.01 K/uL (0-0.2); BLOOD UREA NITROGEN 99 mg/dl (7-18); BUN/CREATININE RATIO 8.2 (10-20); CALCIUM 8.7 mg/dl (8.5-10.1); CARBON DIOXIDE 20 mmol/L (21-32); CHLORIDE 100 mmol/L (98-107); CKMB/CK RATIO 2.7 (0-3.0); COMPLETE YES; EOS % 0.1 %; GLUCOSE 147 mg/dl (70-99); IG% 0.9 %; LYMPH % 6.7 %; MAGNESIUM 2.6 mg/dl (1.8-2.4); MONO % 3.7 %; NEUT % 88.5 %; POLYCHROMASIA 1+; POTASSIUM 7.1 mmol/L (3.5-5.1); SODIUM 135 mmol/L (136-145)
[2016-12-14] MEDS ORDERED: EPOETIN ALFA 10,000 UNITS/ML VIAL IV. ONE (06:00)
[2016-12-14] MEDS ORDERED: PANTOprazole INJ 80 MG in DEXTROSE 5% 100ML IV SCH (06:15)
[2016-12-14 06:24] LABS: PROTHROMBIN TIME (PATIENT) > 100.0 SECONDS (9.0-12.0)
[2016-12-14 06:29] LABS: INR > 8.0 (0.9-1.1)
[2016-12-14] MEDS ORDERED: PHYTONADIONE INJ 10 MG in SODIUM CHLORIDE 0.9% 50ML 50 ML IV ONE (06:30)
[2016-12-14] MEDS ORDERED: CALC667C4 PO (06:53)
[2016-12-14] MEDS ORDERED: VNTHFA/IN INH (06:53)
[2016-12-14] MEDS ORDERED: MOME6000 NAE (06:54)
[2016-12-14] MEDS ORDERED: ESZO1TAB6 PO (06:54)
[2016-12-14] MEDS ORDERED: PATI1POW PO (06:56)
[2016-12-14] MEDS ORDERED: [UNRECOGNIZED DRUG - CODE] PO (06:56)
[2016-12-14] MEDS ORDERED: PROTHROMBIN COMP CONC- KCENTRA 5,000 UNIT in SYRINGE 0 ML IV SCH (07:00)
[2016-12-14] MEDS ORDERED: RAPID SEQUENCE INDUCTION BAG ONE (07:14)
[2016-12-14] MEDS ORDERED: VANCOMYCIN CONSULT ACTIVE PRN (07:15)
[2016-12-14] MEDS ORDERED: PIPERACILL/TAZOBAC CONSULT ACTIVE PRN (07:15)
[2016-12-14] MEDS ORDERED: FENTANYL 1250MCG/250ML NSS IV PRN (07:30)
[2016-12-14] MEDS ORDERED: PIPERACILL/TAZOBAC IV 4.5 GM in DEXTROSE 5% 100ML IV ONE (07:30)
--- NOTE | 2016-12-14 07:35 | DIAGNOSTIC IMAGING REPORT ---
CHEST ONE VIEW PORTABLE CLINICAL HISTORY: Chest pain. COMPARISON STUDY: Chest radiograph November 18, 2016. FINDINGS: A right internal jugular dual lumen catheter remains in place. There has been interval development of a large left pleural effusion which may be partially loculated. There is markedly diminished aeration of the left lung likely due to compressive atelectasis. There is rightward shift of mediastinal structures due to the large effusion. IMPRESSION: Interval development of a large left pleural effusion with subtotal left lung collapse. Electronically signed by: David Pena M.D. 12/14/2016 7:33 AM Dictated Date/Time: 12/14/2016 7:29 AM
[2016-12-14] MEDS ORDERED: DORNASE ALFA 2.5MG 5 ML in SYRINGE 25 ML IPL SCH (08:00)
[2016-12-14] MEDS ORDERED: EPOETIN ALFA INJ 14,000 UNITS in SYRINGE 0 ML IV. SCH (08:00)
--- NOTE | 2016-12-14 08:13 | DIAGNOSTIC IMAGING REPORT ---
CT SCAN OF THE CHEST WITHOUT IV CONTRAST CLINICAL HISTORY: Pleural effusion. COMPARISON STUDY: Chest x-ray dated 12/14/2016. Abdominal CT dated 11/18/2016. TECHNIQUE: CT scan of the thorax was performed from the thoracic inlet to the upper abdomen. Images are reviewed in the axial, sagittal, and coronal planes. IV contrast was not administered for this examination as per the referring clinician. CT DOSE: 615.41 mGy.cm FINDINGS: Thyroid: Enlarged and heterogeneous. There are numerous low-attenuation nodules measuring up to at least 13 mm. Coarse calcifications are noted. Thoracic aorta: There is atherosclerotic calcification of the thoracic aorta, which is normal in caliber and demonstrates standard 3-vessel arch anatomy. A right internal jugular central venous catheter is in place. Heart: The heart is mildly enlarged and there is a small pericardial effusion. There is diffusely diminished attenuation of the cardiac blood pool as compared to the myocardium suggesting anemia. Lungs and pleural spaces: Evaluation of the lung parenchyma is degraded by respiratory motion artifact. There is a large left pleural effusion with near-complete atelectasis of the left lung. This is new from the 11/18/[address] A small portion of the left apex remains aerated. No pleural effusion is seen on the right. Foci of linear atelectasis versus scarring are noted in the right lower lung. The trachea and central airways appear patent. Mediastinum: There is no mediastinal lymphadenopathy. There is rightward shift of mediastinum. Aliza: Not well assessed without IV contrast. Axillae: There is no axillary lymphadenopathy. Upper abdomen: There is a tiny hiatal hernia. The partially imaged right kidney demonstrate marked cortical atrophy. Renovascular calcifications are observed. Skeletal structures: The skeletal structures appear osteopenic. No lytic or blastic bony lesions are seen. IMPRESSION: 1. Large left pleural effusion with near-complete atelectasis of the left lung. This is new from 11/18/2016. 2. There is mass effect from the large pleural effusion with rightward shift of the mediastinum. 3. The right lung is grossly clear. 4. Cardiomegaly and small pericardial effusion. 5. Findings suggest multinodular goiter. 6. Additional findings as above. Electronically signed by: Maurizio Dumas M.D. 12/14/2016 8:11 AM Dictated Date/Time: 12/14/2016 8:06 AM
[2016-12-14] MEDS ORDERED: ALTEPLASE, RECOMBINANT 1 MG/ML 2 ML VIAL IPL ONE (08:15)
--- NOTE | 2016-12-14 08:18 | Gastrointestinal Consultation ---
Gastrointestinal Consultation Date of Consultation: Dec 14, 2016 Attending Physician: Rodney Consulting Physician: Stevie Reason for Consultation: upper GI bleed History of Present Illness Patient is a 61 year old male w/ PMH significant for ESRD, anemia, HTN, AFIB, history of NSTEMI and history of GI bleed who presents to the ED for evaluation of upper back pain x 2 days and nausea and vomiting. GI is consulted for evaluation of upper GI bleed in the setting of Coumadin toxicity. In the ED, pt was dry heaving and producing red/clear emesis. Imaging suggestive of large left pleural effusion with near complete atelectases of the left lung identified in ED. This was suspicious for blood given accumulation and INR >8. Pt was given VitK and KCentra. PT is intubated, history gathered from notes and staff. ROS not obtained. EKG 12/14/16: NSR w/ rate 82, T-wave inversion and peaked T waves. This is new compared to EKG from 11/19/[address] 12/14/16: Large left pleural effusion with near-complete atelectasis of the left lung. This is new from 11/18/2016. There is mass effect from the large pleural effusion with rightward shift of the mediastinum. The right lung is grossly clear. Cardiomegaly and small pericardial effusion. Chest XR 12/14/16: Interval development of a large left pleural effusion with subtotal left lung collapse. EGD 12/31/15: Normal esophagus. Normal stomach. Flattened mucosa was found in the duodenum. Colonoscopy 12/31/15: One 5 mm polyp in the transverse colon. Resected and retrieved. One 20 mm polyp in the descending colon. Resected and retrieved. One 5 mm polyp in the sigmoid colon. Resected and retrieved. Large external hemorrhoid Past Medical/Surgical History Medical Problems: (1) Abnormal EKG Status: Acute (2) Altered mental status Status: Acute (3) Anemia Status: Acute (4) Anemia Status: Acute (5) ARF (acute renal failure) Status: Acute (6) Chest wall pain Status: Acute (7) Electrocardiogram showing T wave abnormalities Status: Acute (8) Hyperkalemia Status: Acute (9) Pancreatitis Status: Acute (10) Pericardial effusion without cardiac tamponade Status: Acute (11) Pleural effusion, left Status: Acute (12) Renal failure Status: Acute (13) Supratherapeutic INR Status: Acute (14) Upper GI bleed Status: Acute Family History Diabetes mellitus FATHER FH: CHF (congestive heart failure) FATHER Hypertension FATHER Social History Smoking Status: Former Smoker Alcohol Use: occasionally Drug Use: none Marital Status: Housing Status: lives with significant other Occupation Status: employed Allergies Coded Allergies: No Known Allergies (Unverified , 12/14/16) Current Medications Home Meds and Scripts Medications Dose Route/Sig Max Daily Dose Days Date Category Dose Instructions Levaquin (Levofloxacin) 250 Mg Tab Mg PO UD 10 12/14/16 Reported TAKE 2 PILLS TODAY FOLLOWED BY 1 PILL EVERY OTHER DAY FOR 10 DAYS Veltassa (Patiromer Sorbitex Calcium) 8.4 Gm Pow 8.4 Gm PO DAILY 12/14/16 Reported Borage 1000 (Borage (Borago Officinalis)) 1,000 Mg Cap 1,000 Mg PO UD 12/14/16 Reported Lunesta (Eszopiclone) 1 Mg Tab 1 Mg PO HS PRN 12/14/16 Reported Mometasone Furoate (Mometasone Furoate (Nasal)) 50 Mcg/Act Spr 2 [place] RAFAEL DAILY 12/14/16 Reported Ventolin Hfa (Albuterol) 200 Puffs/21922 Mcg Aers 2 Puffs INH Q4 PRN 12/14/16 Reported Phoslo 667 Mg (Calcium Acetate) 667 Mg Cap 1 Cap PO WM 12/14/16 Reported Coumadin (Warfarin Sod) 5 Mg Tab 5 Mg PO DAILY 30 11/20/16 Rx Amiodarone HCl 200 Mg Tab 200 Mg PO DAILY 30 11/20/16 Rx Coreg (Carvedilol) 12.5 Mg Tab 12.5 Mg PO BID 10/20/16 Reported Procrit (Epoetin Carlos Alberto) 2,000 Units Inj 10,000 Units INJ 3XWK 09/09/16 Reported GIVE ON TUESDAYS,THURSDAYS AND SATURDAYS IN DIALYSIS Norvasc (Amlodipine Besylate) 5 Mg Tab 5 Mg PO BID 04/14/16 Reported Physical Exam Date Time Temp Pulse Resp B/P Pulse Ox O2 Delivery O2 Flow Rate FiO2 12/14/16 06:41 91 17 165/97 100 12/14/16 05:47 91 16 169/79 87 Room Air 12/14/16 05:22 92 12/14/16 04:44 36.4 85 20 151/84 95 Room Air General Appearance: no apparent distress (pt is intubated and sedated) Respiratory/Chest: no respiratory distress, no accessory muscle use, + pertinent finding (coarse breath sounds) Cardiovascular: regular rate, rhythm, no gallop, no murmur Abdomen: normal bowel sounds, soft, no organomegaly, no pulsatile mass, + pertinent finding (PD catheter in place) Neurologic/Psych: + pertinent finding (sedated and intubated) Skin: normal color, warm/dry, no rash Laboratory Results Last 24 Hours Test 12/14/16 05:00 12/14/16 05:03 12/14/16 05:08 12/14/16 05:30 Gastric Fluid pH 2 Gastric Fluid Occult Blood NEG White Blood Count 16.46 K/uL Red Blood Count 2.16 M/uL Hemoglobin 6.4 g/dL Hematocrit 20.2 % Mean Corpuscular Volume 93.5 fL Mean Corpuscular Hemoglobin 29.6 pg Mean Corpuscular Hemoglobin Concent 31.7 g/dl Platelet Count 360 K/uL Mean Platelet Volume 8.8 fL Neutrophils (%) (Auto) 88.5 % Lymphocytes (%) (Auto) 6.7 % Monocytes (%) (Auto) 3.7 % Eosinophils (%) (Auto) 0.1 % Basophils (%) (Auto) 0.1 % Neutrophils # (Auto) 14.59 K/uL Lymphocytes # (Auto) 1.10 K/uL Monocytes # (Auto) 0.61 K/uL Eosinophils # (Auto) 0.01 K/uL Basophils # (Auto) 0.01 K/uL RDW Standard Deviation 66.9 fL RDW Coefficient of Variation 19.5 % Immature Granulocyte % (Auto) 0.9 % Immature Granulocyte # (Auto) 0.14 K/uL Polychromasia 1+ Sodium Level 135 mmol/L Potassium Level 7.1 mmol/L Chloride Level 100 mmol/L Carbon Dioxide Level 20 mmol/L Anion Gap 15.0 mmol/L 19.0 mmol/L Blood Urea Nitrogen 99 mg/dl Creatinine 12.00 mg/dl Est Creatinine Clear Calc Drug Dose 7.4 ml/min Estimated GFR () 4.6 Estimated GFR (Non- 4.0 BUN/Creatinine Ratio 8.2 Random Glucose 147 mg/dl Calcium Level 8.7 mg/dl Magnesium Level 2.6 mg/dl Total Creatine Kinase 52 U/L Creatine Kinase MB 1.4 ng/ml Creatine Kinase MB Ratio 2.7 Troponin I < 0.015 ng/ml Bedside Hemoglobin 6.5 g/dl Bedside Hematocrit 19 % Bedside Sodium 131 mEq/L Bedside Potassium 7.4 mEq/L Bedside Chloride 101 mEq/L Bedside Total CO2 19 mEq/l Bedside Blood Urea Nitrogen 103 mg/dl Bedside Creatinine 11.5 mg/dl Bedside Glucose (other) 144 mg/dl Bedside Ionized Calcium (Marilin) 1.08 mmol/l Prothrombin Time > 100.0 SECONDS Prothromb Time International Ratio > 8.0 Activated Partial Thromboplast Time 51.4 SECONDS Partial Thromboplastin Ratio 2.0 Test 12/14/16 06:43 Impression Patient is a 61 year old male w/ ESRD, AFIB on Coumadin admitted with large left pleural effusion (hemothorax 4L output from chest tube), hyperkalemia, and acute on chronic anemia. GI was consulted to rule out upper GI bleed. Plan Hold Coumadin Reverse with VitK PPI Bolus and drip Trend H&H Continue to transfuse PRN Will discuss role for endoscopy with Dr. Hubbard as INR is normalized I have seen, examined and agree with the plan as outlined by ROBBY Rosado as above. Admitted with chest pain, weakness, and found to have large hemothorax with 4L of bloody fluid being evacuated. No signs of GI bleeding Supportive care, if has evidence of bleeding then will re-eval for endoscopy, however, given pulmonary issues, for now as long as hemodynamically stable will wait to eval clinical course BID IV PPI -exam reveals soft abd, intubated, chest tube in place
[2016-12-14] MEDS ORDERED: VANCOMYCIN INJ 2,000 MG in SODIUM CHLORIDE 0.9% 500ML 500 ML IV SCH (08:30)
[2016-12-14] MEDS: PANTOprazole INJ 40 MG in DEXTROSE 5% 100ML IV SCH ×4 (08:56→23:38)
--- NOTE | 2016-12-14 09:00 | DIAGNOSTIC IMAGING REPORT ---
CHEST ONE VIEW PORTABLE CLINICAL HISTORY: Chest tube placement. COMPARISON STUDY: Chest radiograph and chest CT performed earlier today. FINDINGS: The tip of the endotracheal tube is 6.2 cm above the danny. A right internal jugular dual lumen catheter remains in place. There has been interval placement of a left chest tube. Left lung aeration is markedly improved and the size of the left pleural effusion has greatly diminished. There is a small residual pleural effusion. There is left apical opacity. There is mild left lower lung opacity. IMPRESSION: 1. Tip of endotracheal tube 6.2 cm above the danny. 2. Interval placement of a left chest tube with marked decrease in size of the left pleural effusion and significant improvement in left lung aeration. No pneumothorax. Small residual left pleural effusion with left apical opacity. Electronically signed by: David Pena M.D. 12/14/2016 8:58 AM Dictated Date/Time: 12/14/2016 8:47 AM
[2016-12-14 09:25] LABS: PLEURAL FLUID APPEARANCE BLOODY; PLEURAL FLUID COLOR RED; PLEURAL FLUID MONONUC RELAT 17.2 %; PLEURAL FLUID POLYNUC 82.8 %; PLEURAL FLUID SOURCE LEFT LUNG; PLEURAL FLUID WBC (A) 2678 /uL
--- NOTE | 2016-12-14 09:50 | SURGICAL CONSULTATION ---
DATE OF CONSULTATION: 12/14/2016 DATE OF CONSULTATION: 12/14/2016. REASON FOR CONSULTATION: Left pneumothorax. 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 He has a right infraclavicular dialysis catheters in place. He presented with upper chest pain and pleuritic left chest pain and then became unstable and had to be intubated and was found to have a huge left pleural effusion. Dr. Nishant Cannon inserted a 16-Sami chest tube and drained over 4 liters of blood. The patient had to be transfused. His hemoglobin which had been 8.3 last month had dropped down to 6.4. He was hemodynamically unstable; however, he is now settled down and currently he is on a fentanyl drip and Versed and appears stable with a heart rate in the 90s, blood pressure 160/92. It should be noted that his INR was over 8. He had signs and symptoms consistent with an upper respiratory infection and a markedly prolonged INR. I have been asked to see him for management of his tube and for his hemothorax. PAST MEDICAL HISTORY: 1. End-stage renal disease. 2. Chronic anemia. 3. Hypertension. 4. History of cigarette smoking. 5. Deep vein thrombosis in the past. 6. Recent upper respiratory infections. PAST SURGICAL HISTORY: 1. Insertion of a peritoneal dialysis catheter. 2. Insertion of right internal jugular Perm-A-Cath. 3. Colonoscopy with polypectomy. 4. Dental surgery. MEDICATIONS: (at home): 1. Levaquin, which had been started for his upper respiratory infection. 2. Amiodarone (history of atrial fibrillation). 3. Amlodipine. 4. Ventolin inhaler. 5. Borage. 6. PhosLo. 7. Coreg. 8. Procrit. 9. Lunesta. 10. Veltassa. 11. Coumadin. 12. Nasal spray. ALLERGIES: No known drug allergies. 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 He lives in [place] with his . He did smoke cigarettes but quit 3 years ago. He is usually independent in his activities of daily living. FAMILY MEDICAL HISTORY: The patient's father suffered from congestive heart failure, diabetes, hypertension. REVIEW OF SYSTEMS: The patient had a colonoscopy with polypectomy last year for a benign adenoma, also upper endoscopy. The patient has been complaining of upper back pain and more pain on the left side that was pleuritic. He also had signs and symptoms consistent with an upper respiratory infection and started on Levaquin recently. The patient also has swelling in his lower extremities, left greater than right. His peritoneal dialysis catheter has not been used since its insertion on 10/28/2016. He has been getting hemodialysis. He does make some urine. He has also had heme positive stools, but was supratherapeutic with INR. He had some apparent vomiting and dry heaving with some vomiting. He was treated with vitamin Kcentra as he had a large left pleural effusion which was hemothorax. His upper endoscopy last year found that he really did not have any abnormalities mucosally although the mucosa was "flattened" in the duodenum. He of course was having some shortness of breath with this and had to be intubated. CT scan was obtained which showed he does have a small pericardial effusion with some pericardial thickening. He had some EKG changes in the Emergency Room. There were no obvious wound breakdown. There are no complaints of visual or auditory problems. PHYSICAL EXAMINATION: GENERAL: This is a well-developed, well-nourished male who stands 5 feet 9 inches tall and weighs 215 pounds. He is on a ventilator. He is hemodynamically stable. His pupils are pinpoint. HEAD, EYES, EARS, NOSE, AND THROAT: Sclerae are pale. He has no arcus senilis. His oral mucosa is dry. He is orally intubated. NECK: Supple. He has a right internal jugular hemodialysis catheter which is tunneled over his clavicle. The site is clean. He is moving air well actually both sides, although he does have some slightly decreased breath sounds on the left. He has a chest tube in place with no bleeding around it. HEART: He has a regular rate and rhythm of heart with a rate in the 90s now. ABDOMEN: Soft. His infraumbilical incision is clean and his peritoneal dialysis catheter is clean. He has good femoral pulses. I can palpate pedal pulses. He has 1+ edema with hemosiderin deposition on the left and trace edema on the right. He has no joint effusions. NEUROLOGIC: He is sedated and neurologically I am unable to evaluate him. DATA: I reviewed his CT scan as described above. His chest x-ray after insertion of the tube and after the use of TPA and dornase was improved. ASSESSMENT AND PLAN: Right hemothorax with unknown etiology. I closely looked at his aorta and while it appears to be free of any hematomas, I am concerned that he could have a penetrating aortic ulcer. He could also have a dissection. RECOMMENDATIONS: 1. I would continue the TPA although I do not see a need for the dornase. 2. CTA with contrast. I think given his symptoms of upper back pain and a spontaneous left hemothorax that a penetrating aortic ulcer or a dissection should be ruled out. SUZAND
--- NOTE | 2016-12-14 09:54 | History and Physical ---
History & Physical Date & Time of Service: Dec 14, 2016 at 09:03 Chief Complaint: Hyperkalemia Primary Care Physician: Emily Lynch M.D. History of Present Illness Source: hospital records (Could not be obtained as he is currently sedated and intubated and no family at bedside) Patient is a 61 yr old male with PMH of ESRD on HD and is planned to be transitioned to PD, CAD, P.afib on coumadin, anemia, HTN, H/O NSTEMI and H/O GI bleed presents to ED with persistent upper back pain for 2 days which is worse on left side, nausea, vomiting, abd pain, generalized weakness, productive cough as per ED documentation. In the ED, pt was dry heaving and producing reddish emesis. He was found to be hyperkalemic (7.1), Anemic with Hb 6.4, uremic with Cr:12.0, coagulopathy with INR: >8.0. Imaging suggestive of large left pleural effusion with near complete atelectases of the left lung identified in ED. EKG obtained showing peaked T and some T wave inversions. Patient received blood transfusion, Kcentra, Vit K and was treated for hyperkalemia with Calcium, Bicarb, Insulin, Glucose. He was started on protonix drip and patient was transferred to ICU for further management. Patient is currently sedated and intubated. Left sided chest tube is placed and is currently receiving hemodialysis. Patient was also started on vanco and zosyn. Currently not on pressors. Past Medical/Surgical History Medical Problems: (1) Anemia due to chronic kidney disease Status: Chronic (2) ESRD (end stage renal disease) Status: Chronic (3) GI bleed Status: Resolved (4) HTN (hypertension) Status: Chronic (5) NSTEMI (non-ST elevated myocardial infarction) Permanent Comment: due to severe anemia Status: Resolved Surgical Problems: (1) H/O colonoscopy Status: Chronic (2) History of dental surgery Status: Chronic (3) History of esophagogastroduodenoscopy (EGD) Status: Chronic Family History Diabetes mellitus FATHER FH: CHF (congestive heart failure) FATHER Hypertension FATHER Social History Smoking Status: Former Smoker Drug Use: none Marital Status: Housing status: lives with significant other Occupational Status: employed Multi-Drug Resistant Organisms History of MDRO: No Allergies Coded Allergies: No Known Allergies (Unverified , 12/14/16) Home Medications Scheduled Amiodarone HCl (Amiodarone HCl), 200 MG PO DAILY Amlodipine (Norvasc), 5 MG PO BID Borage (Borago Officinalis) (Borage 1000), 1,000 MG PO UD Calcium Acetate (Phoslo 667 Mg), 1 CAP PO WM Carvedilol (Coreg), 12.5 MG PO BID Epoetin Carlos Alberto (Procrit), 10,000 UNITS INJ 3XWK Levofloxacin (Levaquin), MG PO UD Mometasone Furoate (Nasal) (Mometasone Furoate), 2 SPRY RAFAEL DAILY Patiromer Sorbitex Calcium (Veltassa), 8.4 GM PO DAILY Warfarin Sod (Coumadin), 5 MG PO DAILY Scheduled PRN Albuterol Hfa (Ventolin Hfa), 2 PUFFS INH Q4 PRN for Wheezing Eszopiclone (Lunesta), 1 MG PO HS PRN for Sleep Review of Systems Could not be obtained as sedated and intubated Physical Exam Vital Signs Date Time Temp Pulse Resp B/P Pulse Ox O2 Delivery O2 Flow Rate FiO2 12/14/16 08:05 100 12/14/16 06:41 91 17 165/97 100 12/14/16 05:47 91 16 169/79 87 Room Air 12/14/16 05:22 92 12/14/16 04:44 36.4 85 20 151/84 95 Room Air General Appearance: WD/WN, no apparent distress (Currently sedated and Intubated) Head: normocephalic, atraumatic Eyes: normal inspection, sclerae normal ENT: normal ENT inspection (Intubated) Neck: supple, trachea midline Respiratory/Chest: no respiratory distress, no accessory muscle use, + pertinent finding (Coarse breath sounds, b/l air entry) Cardiovascular: regular rate, rhythm, no murmur, + tachycardia, + pertinent finding (B/L pedal edema) Abdomen/GI: normal bowel sounds, soft, + pertinent finding (+ peritoneal catheter) Extremities/Musculoskelatal: normal inspection, + pedal edema Neurologic/Psych: + pertinent finding (Currently sedated and Intubated. Could not perform complete neuro exam) Skin: normal color, warm/dry Lymphatic: no adenopathy Diagnostics Laboratory Results Results Past 24 Hours Test 12/14/16 00:00 12/14/16 05:00 12/14/16 05:03 12/14/16 05:08 Range/Units Stool Occult Blood POSITIVE NEGATIVE Gastric Fluid pH 2 Gastric Fluid Occult Blood NEG NEG White Blood Count 16.46 4.8-10.8 K/uL Red Blood Count 2.16 4.7-6.1 M/uL Hemoglobin 6.4 14.0-18.0 g/dL Hematocrit 20.2 42-52 % Mean Corpuscular Volume 93.5 80-100 fL Mean Corpuscular Hemoglobin 29.6 25-34 pg Mean Corpuscular Hemoglobin Concent 31.7 32-36 g/dl Platelet Count 360 130-400 K/uL Mean Platelet Volume 8.8 7.4-10.4 fL Neutrophils (%) (Auto) 88.5 % Lymphocytes (%) (Auto) 6.7 % Monocytes (%) (Auto) 3.7 % Eosinophils (%) (Auto) 0.1 % Basophils (%) (Auto) 0.1 % Neutrophils # (Auto) 14.59 1.4-6.5 K/uL Lymphocytes # (Auto) 1.10 1.2-3.4 K/uL Monocytes # (Auto) 0.61 0.11-0.59 K/uL Eosinophils # (Auto) 0.01 0-0.5 K/uL Basophils # (Auto) 0.01 0-0.2 K/uL RDW Standard Deviation 66.9 36.4-46.3 fL RDW Coefficient of Variation 19.5 11.5-14.5 % Immature Granulocyte % (Auto) 0.9 % Immature Granulocyte # (Auto) 0.14 0.00-0.02 K/uL Polychromasia 1+ Sodium Level 135 136-145 mmol/L Potassium Level 7.1 3.5-5.1 mmol/L Chloride Level 100 98-107 mmol/L Carbon Dioxide Level 20 21-32 mmol/L Anion Gap 15.0 19.0 16-25 mmol/L Blood Urea Nitrogen 99 7-18 mg/dl Creatinine 12.00 0.60-1.40 mg/dl Est Creatinine Clear Calc Drug Dose 7.4 ml/min Estimated GFR () 4.6 Estimated GFR (Non- 4.0 BUN/Creatinine Ratio 8.2 10-20 Random Glucose 147 70-99 mg/dl Calcium Level 8.7 8.5-10.1 mg/dl Magnesium Level 2.6 1.8-2.4 mg/dl Total Creatine Kinase 52 39-308 U/L Creatine Kinase MB 1.4 0.5-3.6 ng/ml Creatine Kinase MB Ratio 2.7 0-3.0 Troponin I < 0.015 0-0.045 ng/ml Bedside Hemoglobin 6.5 14.0-18.0 g/dl Bedside Hematocrit 19 42-52 % Bedside Sodium 131 135-144 mEq/L Bedside Potassium 7.4 3.3-5.0 mEq/L Bedside Chloride 101 101-112 mEq/L Bedside Total CO2 19 24-31 mEq/l Bedside Blood Urea Nitrogen 103 7-18 mg/dl Bedside Creatinine 11.5 0.6-1.3 mg/dl Bedside Glucose (other) 144 70-99 mg/dl Bedside Ionized Calcium (Marilin) 1.08 1.12-1.32 mmol/l Test 12/14/16 05:30 12/14/16 06:43 12/14/16 07:40 12/14/16 08:23 Range/Units Prothrombin Time > 100.0 9.0-12.0 SECONDS Prothromb Time International Ratio > 8.0 0.9-1.1 Activated Partial Thromboplast Time 51.4 21.0-31.0 SECONDS Partial Thromboplastin Ratio 2.0 Microbiology Results 12/14/16 Blood Culture, Ordered Pending 12/14/16 Blood Culture, Ordered Pending 12/14/16 Gram Stain, Received Pending 12/14/16 Wound Culture, Received Pending Diagnostic Radiology CXR: IMPRESSION: Interval development of a large left pleural effusion with subtotal left lung collapse. Electronically signed by: David ePna M.D. 12/14/2016 7:[address] chest: 1. Large left pleural effusion with near-complete atelectasis of the left lung. This is new from 11/18/2016. 2. There is mass effect from the large pleural effusion with rightward shift of the mediastinum. 3. The right lung is grossly clear. 4. Cardiomegaly and small pericardial effusion. 5. Findings suggest multinodular goiter. 6. Additional findings as above. EKG EKG: NSR, showing peaked T and some T wave inversions Impression Assessment and Plan Back pain/Left pleural effusion with mediastinal shift: S/P Left chest tube placement Need to rule out aortic dissection Plan to get CT angio Follow up plural fluid studies Appreciate Support Coordinator help Metabolic Encephalopathy: Could be multifactorial: Uremia, acute illness Currently sedated and intubated CT head:pending Hyperkalemia: H/O ESRD ON HD and planned for transitioned to PD S/P Calcium, Bicarb, Insulin, Glucose while in ED Currently getting HD Nephrology following Anemia: H/O GI bleed, ESRD Likely multifactorial: R/O upper GI bleed, Aortic dissection, ESRD On Protonix ggt S/P 2 units PRBCs Monitor H&H GI consulted Hyper coagulopathy: On coumadin at home fr P.afib S/P Vit K and Kcentra Coumadin discontinue Monitor INR Hypertension: H/O non compliance Currently uncontrolled Monitor Need to resume meds when more stable Fluid overload status Pericardial effusion without cardiac tamponade Currently getting HD Need to r/o aortic dissection P.afib: Coumadin on hold for hypercoagulable state Need to resume amiodarone when appropriate Possible sepsis: On IV vanco and Zosyn Follow up cultures Currently not on pressors IV fluids GI Px: On Protonix ggt DVT Px: Hypercoagulable state CODE STATUS: Full code DISPOSITION: Continue monitoring in ICU VTE Prophylaxis VTE Risk Assessment Done? Y/N: Yes Risk Level: Moderate
--- NOTE | 2016-12-14 10:22 | Nephrology Consultation ---
Nephrology Consultation Date of Consultation: Dec 14, 2016. Attending Physician: Dr Rivero Requesting Physician: Dr Richey Reason for Consultation: ESRD w/ hyperkalemia, acute anemia History of Present Illness 61 year old male w/ ESRD on HD and HTN, past tobacco abuse, NSTEMI 12/2015, L sided nephrolithiasis, admission 11/2016 for hyperkalemia and new dx that admission of A fib w/ RVR for which he was started on coumadin, hx of nonadherence to medical recommendations presented to ED this am w/ 36 hrs L sided flank pain and N/V which began last evening along w/ abdominal pain and cough/orthopnea; on presentation here, he was found to have K 7.1, hgb 6.4, INR >8, new L pleural effusion. In ER had clear red emesis. His ECG had peaked T waves>he received IV calcium, bicarb, insulin for tx. Emergent dialysis was arranged. He also was found to have new and large L pleural effusion w/ L lung collapse. He was admitted to ICU where he was intubated and CT placed w/ over 4L blood drained immediately. Urgent transfusion arranged. He had about 90 min of HD but d/t ongoing moderately brisk bloody CT output, critical care and I agreed to stop HD and get urgent CT angiography to rule out dissection. His last dialysis was 12/11 for 3h w/ SBP in 170-190 range and w/ 3L UF. He has a peritoneal dialysis catheter in place but has not been able to start training d/ t work constraints/disinclination to commit to time needed for training; this is in process of being addressed at [facility] where he is under my care. Also hx of significant nonadherence to medical recommendations at times > he has medication to lower potassium which at rounds last week he was not taking; also has been unwilling to change hemodialysis regimen to adequate treatment times b/c of his concerns about working (he lives in [place] and works in [place] and currently chooses to dialyze in [place]). Past Medical/Surgical History Medical Problems: (1) Abnormal EKG Status: Acute (2) Altered mental status Status: Acute (3) Anemia Status: Acute (4) Anemia Status: Acute (5) ARF (acute renal failure) Status: Acute (6) Chest wall pain Status: Acute (7) Electrocardiogram showing T wave abnormalities Status: Acute (8) Hyperkalemia Status: Acute (9) Pancreatitis Status: Acute (10) Pericardial effusion without cardiac tamponade Status: Acute (11) Pleural effusion, left Status: Acute (12) Renal failure Status: Acute (13) Supratherapeutic INR Status: Acute (14) Upper GI bleed Status: Acute Family History Diabetes mellitus FATHER FH: CHF (congestive heart failure) FATHER Hypertension FATHER Social History Smoking Status: Former Smoker Alcohol Use: occasionally Drug Use: none Marital Status: Housing Status: lives with significant other Occupation Status: employed Allergies Coded Allergies: No Known Allergies (Unverified , 12/14/16) Medications Current Inpatient Medications Medications (Trade) Dose Ordered Sig/Aleksandra Route Start Time Stop Time Status Last Admin Dose Admin Prothrombin Complex Concent (Human)/Syringe (Kcentra/Syringe) 200 ml @ 10 mls/min 0700 IV 12/14/16 07:00 12/14/16 10:00 Vancomycin HCl (Consult) 1 ea UD PRN N/A 12/14/16 07:15 01/13/17 07:14 Piperacillin Sod/ Tazobactam Sod 1 ea 1 ea UD PRN N/A 12/14/16 07:15 01/13/17 07:14 Pantoprazole Sodium 40 mg/ Dextrose 100 ml @ 20 mls/hr Q5H IV 12/14/16 07:30 01/13/17 07:29 Midazolam HCl 250 ml @ 0 mls/hr Q0M PRN IV 12/14/16 07:30 01/13/17 07:29 Fentanyl Citrate 250 ml @ 0 mls/hr Q0M PRN IV 12/14/16 07:30 12/28/16 07:29 Piperacillin Sod/ Tazobactam Sod 4.5 gm/Dextrose 120 ml @ 200 mls/hr NOW ONCE IV 12/14/16 07:30 12/14/16 08:05 Piperacillin Sod/ Tazobactam Sod 4.5 gm/Dextrose 120 ml @ 30 mls/hr Q12H IV 12/14/16 16:00 12/21/16 15:59 Vancomycin HCl 2000 mg/Sodium Chloride 540 ml @ 200 mls/hr 0830 IV 12/14/16 08:30 12/14/16 11:11 Epoetin Carlos Alberto 66076 units/ Syringe 0.7 ml @ 1 mls/min TODAY@0800 IV. 12/14/16 08:00 12/14/16 19:00 Dornase Carlos Alberto/ Syringe (Pulmozyme Inhalation Soln 2.5ml Amp/Syringe) 30 ml @ 0 mls/hr TODAY@0800 IPL 12/14/16 08:00 12/14/16 09:00 Home Meds and Scripts Medications Dose Route/Sig Max Daily Dose Days Date Category Dose Instructions Levaquin (Levofloxacin) 250 Mg Tab Mg PO UD 10 12/14/16 Reported TAKE 2 PILLS TODAY FOLLOWED BY 1 PILL EVERY OTHER DAY FOR 10 DAYS Veltassa (Patiromer Sorbitex Calcium) 8.4 Gm Pow 8.4 Gm PO DAILY 12/14/16 Reported Borage 1000 (Borage (Borago Officinalis)) 1,000 Mg Cap 1,000 Mg PO UD 12/14/16 Reported Lunesta (Eszopiclone) 1 Mg Tab 1 Mg PO HS PRN 12/14/16 Reported Mometasone Furoate (Mometasone Furoate (Nasal)) 50 Mcg/Act Spr 2 [place] RAFAEL DAILY 12/14/16 Reported Ventolin Hfa (Albuterol) 200 Puffs/18685 Mcg Aers 2 Puffs INH Q4 PRN 12/14/16 Reported Phoslo 667 Mg (Calcium Acetate) 667 Mg Cap 1 Cap PO WM 12/14/16 Reported Coumadin (Warfarin Sod) 5 Mg Tab 5 Mg PO DAILY 30 11/20/16 Rx Amiodarone HCl 200 Mg Tab 200 Mg PO DAILY 30 11/20/16 Rx Coreg (Carvedilol) 12.5 Mg Tab 12.5 Mg PO BID 10/20/16 Reported Procrit (Epoetin Carlos Alberto) 2,000 Units Inj 10,000 Units INJ 3XWK 09/09/16 Reported GIVE ON TUESDAYS,THURSDAYS AND SATURDAYS IN DIALYSIS Norvasc (Amlodipine Besylate) 5 Mg Tab 5 Mg PO BID 04/14/16 Reported Review of Systems unable to obtain d/t intubation Physical Exam Date Time Temp Pulse Resp B/P Pulse Ox O2 Delivery O2 Flow Rate FiO2 12/14/16 06:41 91 17 165/97 100 12/14/16 05:47 91 16 169/79 87 Room Air 12/14/16 05:22 92 12/14/16 04:44 36.4 85 20 151/84 95 Room Air General Appearance: WD/WN, + pertinent finding (intubated, sedated) ENT: + pertinent finding (ETT) Neck: supple Respiratory/Chest: + decreased breath sounds, + pertinent finding (chest tube L w/ brisk bloody output) Cardiovascular: + tachycardia, + pertinent finding (2+ ble EDEMA) Abdomen: non tender, soft, + pertinent finding (PD catheter present; lincoln present) Extremities: + pedal edema, + swelling Neurologic/Psych: + pertinent finding (intubated/sedated) Skin: no rash, + pallor Diagnostics Last 24 Hours Test 12/14/16 05:00 12/14/16 05:03 12/14/16 05:08 12/14/16 05:30 Gastric Fluid pH 2 Gastric Fluid Occult Blood NEG White Blood Count 16.46 K/uL Red Blood Count 2.16 M/uL Hemoglobin 6.4 g/dL Hematocrit 20.2 % Mean Corpuscular Volume 93.5 fL Mean Corpuscular Hemoglobin 29.6 pg Mean Corpuscular Hemoglobin Concent 31.7 g/dl Platelet Count 360 K/uL Mean Platelet Volume 8.8 fL Neutrophils (%) (Auto) 88.5 % Lymphocytes (%) (Auto) 6.7 % Monocytes (%) (Auto) 3.7 % Eosinophils (%) (Auto) 0.1 % Basophils (%) (Auto) 0.1 % Neutrophils # (Auto) 14.59 K/uL Lymphocytes # (Auto) 1.10 K/uL Monocytes # (Auto) 0.61 K/uL Eosinophils # (Auto) 0.01 K/uL Basophils # (Auto) 0.01 K/uL RDW Standard Deviation 66.9 fL RDW Coefficient of Variation 19.5 % Immature Granulocyte % (Auto) 0.9 % Immature Granulocyte # (Auto) 0.14 K/uL Polychromasia 1+ Sodium Level 135 mmol/L Potassium Level 7.1 mmol/L Chloride Level 100 mmol/L Carbon Dioxide Level 20 mmol/L Anion Gap 15.0 mmol/L 19.0 mmol/L Blood Urea Nitrogen 99 mg/dl Creatinine 12.00 mg/dl Est Creatinine Clear Calc Drug Dose 7.4 ml/min Estimated GFR () 4.6 Estimated GFR (Non- 4.0 BUN/Creatinine Ratio 8.2 Random Glucose 147 mg/dl Calcium Level 8.7 mg/dl Magnesium Level 2.6 mg/dl Total Creatine Kinase 52 U/L Creatine Kinase MB 1.4 ng/ml Creatine Kinase MB Ratio 2.7 Troponin I < 0.015 ng/ml Bedside Hemoglobin 6.5 g/dl Bedside Hematocrit 19 % Bedside Sodium 131 mEq/L Bedside Potassium 7.4 mEq/L Bedside Chloride 101 mEq/L Bedside Total CO2 19 mEq/l Bedside Blood Urea Nitrogen 103 mg/dl Bedside Creatinine 11.5 mg/dl Bedside Glucose (other) 144 mg/dl Bedside Ionized Calcium (Marilin) 1.08 mmol/l Prothrombin Time > 100.0 SECONDS Prothromb Time International Ratio > 8.0 Activated Partial Thromboplast Time 51.4 SECONDS Partial Thromboplastin Ratio 2.0 Test 12/14/16 06:43 Diagnostic Radiology: CXR L pleural effusion w/ near total L lung collapse CT chest non con massive L pleural effusion, loculated and w/ mass effect/mediastinal shift EKG: ECG>prolonged QTc, peaked Ts; NSR Assessment & Plan 61 y/o M w/ ESRD, AFib, frequent admissions for hyperkalemia, indwelling PD catheter admitted w/ hyperkalemia, large loculated L pleural effusion which proved to be hemothorax, acute on chronic anemia after presenting w/ N/V, abd pain, L flank pain. Hyperkalemia -had medical therapy on diagnosis -for definitive mgt w/ emergent dialysis on large dialyzer> will resume once CTA complete ESRD -hx of inadequate therapy as outpt; may need near daily tx as inpt Abd pain on presentation w/ concern for penetrating aortic ulcer or dissection -will obtain PD fluid studies given his presentation; further care per primary service; for emergent CTA and may need vascular consultation Acute on chronic anemia w/ supratherapeutic INR -for aggressive pRBC, on dialysis; need to check whether he was getting INR monitored as outpt > hx of stating would not comply with this L pleural effusion/hemothorax -HD to improve total dialysis adequacy; further eval per critical care Appreciate consultation; will follow with you. Care coordinated w/ Davis Murphy, Rodney.
--- NOTE | 2016-12-14 10:23 | DIAGNOSTIC IMAGING REPORT ---
HEAD CT NONCONTRAST CT DOSE: HISTORY: Mental status change ALOC TECHNIQUE: Multiaxial CT images of the head were performed without the use of intravenous contrast. Comparison: None. Findings: The paranasal sinuses and mastoid air cells are clear. The calvarium and skull base are intact. The ventricles and sulci are within normal limits. There is no mass, hematoma, midline shift, or acute infarct. Impression: No acute intracranial abnormality. Electronically signed by: Aj Ojeda M.D. 12/14/2016 10:22 AM Dictated Date/Time: 12/14/2016 10:21 AM
--- NOTE | 2016-12-14 10:26 | Dialysis Progress Note ---
Nephrology Dialysis Note Date of Service: Dec 14, 2016. Subjective seen on dialysis at about 0850; intubated d/t concerns about MS and concern about mediastinal shift on CT/ large effusion needing chest tube. CT w/ > 4L bloody output and ongoing bleeding during heparin free dialysis treatment. Objective Date Time Temp Pulse Resp B/P Pulse Ox O2 Delivery O2 Flow Rate FiO2 12/14/16 08:47 98 167/89 12/14/16 08:30 95 187/94 12/14/16 08:20 36.3 96 186/94 12/14/16 08:05 100 12/14/16 06:41 91 17 165/97 100 12/14/16 05:47 91 16 169/79 87 Room Air 12/14/16 05:22 92 12/14/16 04:44 36.4 85 20 151/84 95 Room Air Physical Exam: General Appearance: WD/WN, + pertinent finding (intubated, sedated) ENT: + pertinent finding (ETT) Neck: supple Respiratory/Chest: + decreased breath sounds, + pertinent finding (chest tube L w/ brisk bloody output); TDC R chest Cardiovascular: + tachycardia, + pertinent finding (2+ ble EDEMA) Abdomen: non tender, soft, + pertinent finding (PD catheter present; lincoln present) Extremities: + pedal edema, + swelling Neurologic/Psych: + pertinent finding (intubated/sedated) Skin: no rash, + pallor Current Inpatient Medications Medications (Trade) Dose Ordered Sig/Aleksandra Route Start Time Stop Time Status Last Admin Dose Admin Vancomycin HCl (Consult) 1 ea UD PRN N/A 12/14/16 07:15 01/13/17 07:14 Piperacillin Sod/ Tazobactam Sod 1 ea 1 ea UD PRN N/A 12/14/16 07:15 01/13/17 07:14 Pantoprazole Sodium 40 mg/ Dextrose 100 ml @ 20 mls/hr Q5H IV 12/14/16 07:30 01/13/17 07:29 12/14/16 08:56 20 MLS/HR Midazolam HCl 250 ml @ 0 mls/hr Q0M PRN IV 12/14/16 07:30 01/13/17 07:29 Fentanyl Citrate 250 ml @ 0 mls/hr Q0M PRN IV 12/14/16 07:30 12/28/16 07:29 Piperacillin Sod/ Tazobactam Sod 4.5 gm/Dextrose 120 ml @ 30 mls/hr Q12H IV 12/14/16 16:00 12/21/16 15:59 Vancomycin HCl 2000 mg/Sodium Chloride 540 ml @ 200 mls/hr 0830 IV 12/14/16 08:30 12/14/16 11:11 12/14/16 08:57 200 MLS/HR Epoetin Carlos Alberto/ Syringe (Procrit Inj/ Syringe) 0.7 ml @ 1 mls/min TODAY@0800 IV. 12/14/16 08:00 12/14/16 19:00 Last 24 Hours Test 12/14/16 00:00 12/14/16 05:00 12/14/16 05:03 12/14/16 05:08 Stool Occult Blood POSITIVE Gastric Fluid pH 2 Gastric Fluid Occult Blood NEG White Blood Count 16.46 K/uL Red Blood Count 2.16 M/uL Hemoglobin 6.4 g/dL Hematocrit 20.2 % Mean Corpuscular Volume 93.5 fL Mean Corpuscular Hemoglobin 29.6 pg Mean Corpuscular Hemoglobin Concent 31.7 g/dl Platelet Count 360 K/uL Mean Platelet Volume 8.8 fL Neutrophils (%) (Auto) 88.5 % Lymphocytes (%) (Auto) 6.7 % Monocytes (%) (Auto) 3.7 % Eosinophils (%) (Auto) 0.1 % Basophils (%) (Auto) 0.1 % Neutrophils # (Auto) 14.59 K/uL Lymphocytes # (Auto) 1.10 K/uL Monocytes # (Auto) 0.61 K/uL Eosinophils # (Auto) 0.01 K/uL Basophils # (Auto) 0.01 K/uL RDW Standard Deviation 66.9 fL RDW Coefficient of Variation 19.5 % Immature Granulocyte % (Auto) 0.9 % Immature Granulocyte # (Auto) 0.14 K/uL Polychromasia 1+ Sodium Level 135 mmol/L Potassium Level 7.1 mmol/L Chloride Level 100 mmol/L Carbon Dioxide Level 20 mmol/L Anion Gap 15.0 mmol/L 19.0 mmol/L Blood Urea Nitrogen 99 mg/dl Creatinine 12.00 mg/dl Est Creatinine Clear Calc Drug Dose 7.4 ml/min Estimated GFR () 4.6 Estimated GFR (Non- 4.0 BUN/Creatinine Ratio 8.2 Random Glucose 147 mg/dl Calcium Level 8.7 mg/dl Magnesium Level 2.6 mg/dl Total Creatine Kinase 52 U/L Creatine Kinase MB 1.4 ng/ml Creatine Kinase MB Ratio 2.7 Troponin I < 0.015 ng/ml Bedside Hemoglobin 6.5 g/dl Bedside Hematocrit 19 % Bedside Sodium 131 mEq/L Bedside Potassium 7.4 mEq/L Bedside Chloride 101 mEq/L Bedside Total CO2 19 mEq/l Bedside Blood Urea Nitrogen 103 mg/dl Bedside Creatinine 11.5 mg/dl Bedside Glucose (other) 144 mg/dl Bedside Ionized Calcium (Marilin) 1.08 mmol/l Test 12/14/16 05:30 12/14/16 06:43 12/14/16 07:40 12/14/16 08:23 Prothrombin Time > 100.0 SECONDS Prothromb Time International Ratio > 8.0 Activated Partial Thromboplast Time 51.4 SECONDS Partial Thromboplastin Ratio 2.0 Pleural Fluid Source LEFT LUNG Pleural Fluid Color RED Pleural Fluid Appearance BLOODY Pleural Fluid WBC 2678 /uL Pleural Fluid RBC [id number] /[id number] Pleural Fluid Polynuclear WBCs % 82.8 % Pleural Fluid Mononuclear WBCs % 17.2 % Date/Time Source Procedure Growth Status 12/14/16 09:30 Blood Blood Culture Pending Received 12/14/16 09:16 Blood Blood Culture Pending Received 12/14/16 07:40 Pleural Fluid (Thoracentesis) Left Gram Stain Pending Received 12/14/16 07:40 Pleural Fluid (Thoracentesis) Left Bacterial Culture Pending Received 12/14/16 07:40 Pleural Fluid (Thoracentesis) Right and Left Gram Stain Pending Received 12/14/16 07:40 Pleural Fluid (Thoracentesis) Right and Left Wound Culture Pending Received Assessment & Plan 61 y/o M w/ ESRD, AFib, frequent admissions for hyperkalemia, indwelling PD catheter admitted w/ hyperkalemia, large loculated L pleural effusion which proved to be hemothorax, acute on chronic anemia after presenting w/ N/V, abd pain, L flank pain. Hyperkalemia -HD to resume once CTA complete ESRD -HD today; may need near daily tx as inpt Abd pain on presentation w/ concern for penetrating aortic ulcer or dissection -obtaining PD fluid studies given his presentation, though these are possibly the least of his concerns clinically; for emergent CTA and may need vascular consultation Acute on chronic anemia w/ supratherapeutic INR -for aggressive pRBC, on dialysis; no heparin and aggressive epo on hd L hemothorax -HD to improve total dialysis adequacy; further eval per critical care Appreciate consultation; will follow with you. Care coordinated w/ Rodney Herrera.
[2016-12-14] MEDS ORDERED: OPTIRAY 320 IV PRN (10:30)
--- NOTE | 2016-12-14 10:30 | DIAGNOSTIC IMAGING REPORT ---
CT angiogram abdomen and pelvis ANGIO ABD/PELVIS WITH CONTRAST CLINICAL HISTORY: Pain mental status change TECHNIQUE: Transaxial acquisition with multi axial reformatted images COMPARISON STUDY: 11/18/2016 FINDINGS: Left and to a lesser extent right basilar parenchymal infiltrative and or effusion-type change. Left basilar drainage catheter Moderate atherosclerotic change abdominal aorta as well as iliac vasculature. 70% stenosis proximal aspect right iliac artery. No evidence for true aneurysm or dissection. Moderate atherosclerotic change of the mesenteric vasculature. Peritoneal dialysis catheter in position bowel pattern is nonobstructive. Appendix is normal. A calcification left kidney including a partial staghorn calculus unchanged from the prior study. Mild atrophic change right kidney. Mild gallbladder distention. IMPRESSION: 1. Mild to moderate atherosclerotic change of the abdominal and pelvic arterial vasculature. 2. 70% stenosis of proximal right iliac artery. 3. Moderate scattered atherosclerotic change of the mesenteric vasculature. 4. No evidence for aneurysm or dissection. 5. Renal calcifications unchanged from the prior study. No evidence for hydronephrosis. 6. Mild renal atrophy unchanged. 7. Mild gallbladder distention. Electronically signed by: Aj Ojeda M.D. 12/14/2016 10:28 AM Dictated Date/Time: 12/14/2016 10:22 AM
--- NOTE | 2016-12-14 10:34 | DIAGNOSTIC IMAGING REPORT ---
CT ANGIOGRAM OF THE CHEST CLINICAL HISTORY: Pleural effusion. COMPARISON STUDY: Chest x-ray and chest CT dated 12/14/2016. Abdominal CT dated 11/18/2016. TECHNIQUE: CT angiogram of the thorax was performed from the thoracic inlet to the upper abdomen following the IV administration of 119 cc of Optiray 320. Images are reviewed in the axial, sagittal, and coronal planes. 3-D MIPS are created and assessed. IV contrast administered without complication. The examination is degraded by streak artifact from the patient's arms which could not be elevated above the chest as well as by mild motion artifact. FINDINGS: Thyroid: Enlarged and heterogeneous. There are numerous low-attenuation nodules measuring up to at least 13 mm. Coarse calcifications are noted. Thoracic aorta: There is atherosclerotic calcification of the thoracic aorta, which is normal in caliber and demonstrates bovine variant arch anatomy. No dissection is seen. A right internal jugular central venous catheter is in place. Pulmonary vascular: The pulmonary trunk is normal in caliber. There are no filling defects identified within the central pulmonary vessels to suggest pulmonary embolus. Note that this examination was not protocoled for evaluation of the pulmonary vessels. Heart: The heart is mildly enlarged and there is a small pericardial effusion. There are scattered coronary artery calcifications. Lungs and pleural spaces: Evaluation of the lung parenchyma is degraded by respiratory motion artifact. An endotracheal tube has been placed. The tip terminates above the danny. A chest tube has been placed, and terminates in the left posterior midlung. This enters anteriorly between the fifth and sixth ribs. There is a small residual left pleural effusion with left lower lobe atelectasis. There has been significant reinflation of the left lung. Trace pneumothorax is seen at the left lung base. Loculated fluid is present at the left apex. Scattered airspace opacities are present in the lingula. No pleural effusion is seen on the right. Atelectasis is present at the right lung base. The right lung is otherwise clear. The trachea and central airways appear patent. Mediastinum: There is no mediastinal lymphadenopathy. Rightward shift of mediastinum is resolved. Aliza: Clear. Axillae: There is no axillary lymphadenopathy. Upper abdomen: There is a tiny hiatal hernia. The partially imaged right kidney demonstrate marked cortical atrophy. Skeletal structures: The skeletal structures appear osteopenic. No lytic or blastic bony lesions are seen. IMPRESSION: 1. Unremarkable CT angiogram of the thoracic aorta. 2. A left-sided chest tube has been placed. There is only a small residual left pleural effusion and the left lung has been reinflated. 3. The right lung is clear noting dependent atelectasis. 4. Cardiomegaly and small pericardial effusion. 5. A trace pneumothorax is seen in the left lung base. 6. An endotracheal tube is new from previous and in appropriate position. 7. There are patchy airspace opacities within the lingula. This may present a mild inflammatory pneumonitis or possibly mild reexpansion edema. 8. Multinodular goiter. 9. Additional findings as above. Electronically signed by: Maurizio Dumas M.D. 12/14/2016 10:32 AM Dictated Date/Time: 12/14/2016 10:24 AM
[2016-12-14] MEDS: MIDAZOLAM 125MG/250ML D5W 250 ML IV PRN ×2 (11:10→11:11)
[2016-12-14 11:22] LABS: HEMATOCRIT 20.8 % (42-52); MEAN CELL VOLUME 88.1 fL (80-100); MEAN CORPUSCULAR HEMOGLOBIN 29.7 pg (25-34); MEAN CORPUSCULAR HGB CONC 33.7 g/dl (32-36); MEAN PLATELET VOLUME 8.8 fL (7.4-10.4); PLATELET COUNT 193 K/uL (130-400); RED BLOOD COUNT 2.36 M/uL (4.7-6.1); WHITE BLOOD COUNT 13.26 K/uL (4.8-10.8)
[2016-12-14 11:24] LABS: VEN BLD GAS O2 SATURATION 88.9 %; VEN BLOOD GAS BASE EXCESS -1.9 mmol/L
[2016-12-14 11:26] LABS: CALCIUM 8.2 mg/dl (8.5-10.1); CREATININE 8.4 mg/dl (0.60-1.40); MAGNESIUM 2.4 mg/dl (1.8-2.4); PHOSPHORUS 5.9 mg/dl (2.5-4.9); POTASSIUM 5.7 mmol/L (3.5-5.1)
[2016-12-14 11:40] LABS: ANISOCYTOSIS PRESENT; BASO % 0.1 %; BASO ABS # 0.01 K/uL (0-0.2); COMPLETE YES; IG% 0.5 %; LYMPH % 6.9 %; LYMPH ABS # 0.91 K/uL (1.2-3.4); MONO % 5.8 %; NEUT % 86.7 %
[2016-12-14 11:58] LABS: INR 1.2 (0.9-1.1); PROTHROMBIN TIME (PATIENT) 12.6 SECONDS (9.0-12.0)
--- NOTE | 2016-12-14 12:05 | Critical Care Consultation ---
Critical Care Consultation Date of Consultation: Dec 14, 2016. 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 He is currently intubated and history was obtained from ED physician and hospital records. On review of records, he also has a history of atrial fibrillation and was placed on coumadin. He was recently discharged from [facility] on 11/20/16 after being admitted for hyperkalemia. He had apparently been reporting chest pain radiating to the back for the last few days. Upon arrival to the ED he was vomiting frequently. He had a CT scan showing a large left pleural effusion causing large midline shift. He was found to be anemic with a Hb of 6, with an INR of 8. He was then transferred to the ICU. He was sedated with 30mg Etomidate and 60mg Rocuronium. He was intubated for airway protection. His Coumadin was reversed with Kaycentra. He had a left chest tube placed, which immediately had 2L of bloody, serosanguinous discharge initially, which increased to about 4L until tapering off. TPA and DNAse were instilled into the pleural catheter. His BP was also elevated, and went up to 280/143. He was placed on a Fentanyl and Versed drip. He was also given Vancomycin and Zosyn. He underwent dialysis in the ICU, and also received 2 units of PRBCs. His repeat Hemoglobin level was 7.0 , so he was ordered another unit of PRBC. Past Medical/Surgical History Medical Problems: (1) Anemia due to chronic kidney disease (2) Chest pain (3) ESRD (end stage renal disease) (4) GI bleed (5) HTN (hypertension) (6) Hyperkalemia (7) NSTEMI (non-ST elevated myocardial infarction) Surgical Problems: (1) H/O colonoscopy (2) History of dental surgery (3) History of esophagogastroduodenoscopy (EGD) (4) [place] teeth extracted (5) Insertion of peritoneal dialysis catheter (6) Insertion of Perm-A-Cath Family History Diabetes mellitus FATHER FH: CHF (congestive heart failure) FATHER Hypertension FATHER Social History Smoking Status: Former Smoker Drug Use: none Marital Status: Housing Status: lives with significant other Occupation Status: employed Allergies Coded Allergies: No Known Allergies (Unverified , 12/14/16) Home Medications Scheduled Amiodarone HCl (Amiodarone HCl), 200 MG PO DAILY Amlodipine (Norvasc), 5 MG PO BID Borage (Borago Officinalis) (Borage 1000), 1,000 MG PO UD Calcium Acetate (Phoslo 667 Mg), 1 CAP PO WM Carvedilol (Coreg), 12.5 MG PO BID Epoetin Carlos Alberto (Procrit), 10,000 UNITS INJ 3XWK Levofloxacin (Levaquin), MG PO UD Mometasone Furoate (Nasal) (Mometasone Furoate), 2 SPRY RAFAEL DAILY Patiromer Sorbitex Calcium (Veltassa), 8.4 GM PO DAILY Warfarin Sod (Coumadin), 5 MG PO DAILY Scheduled PRN Albuterol Hfa (Ventolin Hfa), 2 PUFFS INH Q4 PRN for Wheezing Eszopiclone (Lunesta), 1 MG PO HS PRN for Sleep Current Inpatient Medications Current Inpatient Medications Medications (Trade) Dose Ordered Sig/Aleksandra Route Start Time Stop Time Status Last Admin Dose Admin Vancomycin HCl (Consult) 1 ea UD PRN N/A 12/14/16 07:15 01/13/17 07:14 Piperacillin Sod/ Tazobactam Sod 1 ea 1 ea UD PRN N/A 12/14/16 07:15 01/13/17 07:14 Pantoprazole Sodium 40 mg/ Dextrose 100 ml @ 20 mls/hr Q5H IV 12/14/16 07:30 01/13/17 07:29 12/14/16 08:56 20 MLS/HR Midazolam HCl 250 ml @ 0 mls/hr Q0M PRN IV 12/14/16 07:30 01/13/17 07:29 12/14/16 11:11 10 MLS/HR Fentanyl Citrate 250 ml @ 0 mls/hr Q0M PRN IV 12/14/16 07:30 12/28/16 07:29 12/14/16 11:12 10 MLS/HR Piperacillin Sod/ Tazobactam Sod 4.5 gm/Dextrose 120 ml @ 30 mls/hr Q12H IV 12/14/16 16:00 12/21/16 15:59 Epoetin Carlos Alberto/ Syringe (Procrit Inj/ Syringe) 0.7 ml @ 1 mls/min TODAY@0800 IV. 12/14/16 08:00 12/14/16 19:00 Ioversol (Optiray 320) 125 ml UD PRN IV 12/14/16 10:30 12/18/16 10:29 Review of Systems Unable to obtain ROS due to altered mental status. Physical Exam Date Time Temp Pulse Resp B/P Pulse Ox O2 Delivery O2 Flow Rate FiO2 12/14/16 11:15 93 15 131/76 100 12/14/16 11:00 90 15 150/83 100 12/14/16 10:45 88 18 148/79 100 12/14/16 10:30 91 19 145/72 100 12/14/16 10:23 70 12/14/16 09:30 96 18 141/84 100 12/14/16 09:29 36.5 101 21 172/109 100 Mechanical Ventilator 100 12/14/16 09:29 96 141/84 12/14/16 09:15 97 155/92 12/14/16 09:15 97 17 155/92 100 12/14/16 09:00 98 19 154/94 100 12/14/16 09:00 97 154/94 12/14/16 08:47 98 167/89 12/14/16 08:45 98 24 167/89 100 12/14/16 08:30 94 21 183/95 100 12/14/16 08:30 95 187/94 12/14/16 08:25 96 18 186/94 100 12/14/16 08:20 97 20 187/98 100 12/14/16 08:20 36.3 96 186/94 12/14/16 08:15 99 24 195/98 100 12/14/16 08:10 100 17 185/105 100 12/14/16 08:05 100 12/14/16 08:05 103 22 196/107 100 12/14/16 08:00 99 24 183/108 100 12/14/16 08:00 100 Mechanical Ventilator 12/14/16 07:55 100 19 189/106 100 12/14/16 07:55 100 19 189/106 100 12/14/16 07:50 108 27 210/106 100 12/14/16 07:45 113 18 243/107 100 12/14/16 07:40 129 21 280/143 100 12/14/16 07:30 101 14 201/124 100 12/14/16 07:21 110 15 159/122 96 12/14/16 07:20 106 18 172/109 94 12/14/16 07:20 106 18 172/109 94 12/14/16 06:41 91 17 165/97 100 12/14/16 05:47 91 16 169/79 87 Room Air 12/14/16 05:22 92 12/14/16 04:44 36.4 85 20 151/84 95 Room Air General Appearance: other (pale, sedated and intubated.) Head: normocephalic, atraumatic Eyes: PERRLA, no discharge Neck: normal range of motion, no stridor Respiratory: breath sounds normal, other (crackles on left side initially, now significantly improved) Cardiovasular: regular rate/rhythm, normal S1S2, no murmur Abdomen: non tender (less distended after chest tube placement.), normal bowel sounds, no masses, abnormal rectal exam (hard stool palpable, dark in color. Hemoccult obtained.) Upper Extremities: no edema Lower Extremities: edema (+1 bilaterally.) Neuro: other (sedated) Laboratory Results Last 24 Hours Test 12/14/16 00:00 12/14/16 05:00 12/14/16 05:03 12/14/16 05:08 Stool Occult Blood POSITIVE Gastric Fluid pH 2 Gastric Fluid Occult Blood NEG White Blood Count 16.46 K/uL Red Blood Count 2.16 M/uL Hemoglobin 6.4 g/dL Hematocrit 20.2 % Mean Corpuscular Volume 93.5 fL Mean Corpuscular Hemoglobin 29.6 pg Mean Corpuscular Hemoglobin Concent 31.7 g/dl Platelet Count 360 K/uL Mean Platelet Volume 8.8 fL Neutrophils (%) (Auto) 88.5 % Lymphocytes (%) (Auto) 6.7 % Monocytes (%) (Auto) 3.7 % Eosinophils (%) (Auto) 0.1 % Basophils (%) (Auto) 0.1 % Neutrophils # (Auto) 14.59 K/uL Lymphocytes # (Auto) 1.10 K/uL Monocytes # (Auto) 0.61 K/uL Eosinophils # (Auto) 0.01 K/uL Basophils # (Auto) 0.01 K/uL RDW Standard Deviation 66.9 fL RDW Coefficient of Variation 19.5 % Immature Granulocyte % (Auto) 0.9 % Immature Granulocyte # (Auto) 0.14 K/uL Polychromasia 1+ Sodium Level 135 mmol/L Potassium Level 7.1 mmol/L Chloride Level 100 mmol/L Carbon Dioxide Level 20 mmol/L Anion Gap 15.0 mmol/L 19.0 mmol/L Blood Urea Nitrogen 99 mg/dl Creatinine 12.00 mg/dl Est Creatinine Clear Calc Drug Dose 7.4 ml/min Estimated GFR () 4.6 Estimated GFR (Non- 4.0 BUN/Creatinine Ratio 8.2 Random Glucose 147 mg/dl Calcium Level 8.7 mg/dl Magnesium Level 2.6 mg/dl Total Creatine Kinase 52 U/L Creatine Kinase MB 1.4 ng/ml Creatine Kinase MB Ratio 2.7 Troponin I < 0.015 ng/ml Bedside Hemoglobin 6.5 g/dl Bedside Hematocrit 19 % Bedside Sodium 131 mEq/L Bedside Potassium 7.4 mEq/L Bedside Chloride 101 mEq/L Bedside Total CO2 19 mEq/l Bedside Blood Urea Nitrogen 103 mg/dl Bedside Creatinine 11.5 mg/dl Bedside Glucose (other) 144 mg/dl Bedside Ionized Calcium (Marilin) 1.08 mmol/l Test 12/14/16 05:30 12/14/16 06:43 12/14/16 07:40 12/14/16 08:23 Prothrombin Time > 100.0 SECONDS Prothromb Time International Ratio > 8.0 Activated Partial Thromboplast Time 51.4 SECONDS Partial Thromboplastin Ratio 2.0 Pleural Fluid Source LEFT LUNG Pleural Fluid Color RED Pleural Fluid Appearance BLOODY Pleural Fluid WBC 2678 /uL Pleural Fluid RBC 834128 /uL Pleural Fluid Polynuclear WBCs % 82.8 % Pleural Fluid Mononuclear WBCs % 17.2 % Test 12/14/16 09:30 12/14/16 10:54 Sodium Level 137 mmol/L Potassium Level 5.7 mmol/L Chloride Level 102 mmol/L Carbon Dioxide Level 24 mmol/L Anion Gap 11.0 mmol/L Blood Urea Nitrogen 76 mg/dl Creatinine 8.40 mg/dl Est Creatinine Clear Calc Drug Dose 10.7 ml/min Estimated GFR () 7.2 Estimated GFR (Non- 6.2 BUN/Creatinine Ratio 9.0 Random Glucose 118 mg/dl Calcium Level 8.2 mg/dl Phosphorus Level 5.9 mg/dl Magnesium Level 2.4 mg/dl Total Bilirubin 0.6 mg/dl Direct Bilirubin 0.1 mg/dl Aspartate Amino Transf (AST/SGOT) 67 U/L Alanine Aminotransferase (ALT/SGPT) 75 U/L Alkaline Phosphatase 45 U/L Total Protein 5.9 gm/dl Albumin 2.7 gm/dl White Blood Count 13.26 K/uL Red Blood Count 2.36 M/uL Hemoglobin 7.0 g/dL Hematocrit 20.8 % Mean Corpuscular Volume 88.1 fL Mean Corpuscular Hemoglobin 29.7 pg Mean Corpuscular Hemoglobin Concent 33.7 g/dl Platelet Count 193 K/uL Mean Platelet Volume 8.8 fL Neutrophils (%) (Auto) 86.7 % Lymphocytes (%) (Auto) 6.9 % Monocytes (%) (Auto) 5.8 % Eosinophils (%) (Auto) 0.0 % Basophils (%) (Auto) 0.1 % Neutrophils # (Auto) 11.50 K/uL Lymphocytes # (Auto) 0.91 K/uL Monocytes # (Auto) 0.77 K/uL Eosinophils # (Auto) 0.00 K/uL Basophils # (Auto) 0.01 K/uL RDW Standard Deviation 59.3 fL RDW Coefficient of Variation 18.8 % Immature Granulocyte % (Auto) 0.5 % Immature Granulocyte # (Auto) 0.07 K/uL Anisocytosis PRESENT D-Dimer 4080 ug/L FEU Venous Blood pH 7.35 Venous Blood Partial Pressure CO2 44 mmHg Venous Blood Partial Pressure O2 63 mmHg Venous Blood HCO3 24 mmol/L Venous Blood Oxygen Saturation 88.9 % Venous Blood Base Excess -1.9 mmol/L Diagnostic Results CT CHEST: IMPRESSION: 1. Large left pleural effusion with near-complete atelectasis of the left lung. This is new from 11/18/2016. 2. There is mass effect from the large pleural effusion with rightward shift of the mediastinum. 3. The right lung is grossly clear. 4. Cardiomegaly and small pericardial effusion. 5. Findings suggest multinodular goiter. 6. Additional findings as above. CXR IMPRESSION: 1. Tip of endotracheal tube 6.2 cm above the danny. 2. Interval placement of a left chest tube with marked decrease in size of the left pleural effusion and significant improvement in left lung aeration. No pneumothorax. Small residual left pleural effusion with left apical opacity. HEAD CT Impression: No acute intracranial abnormality. CT ANGIOGRAM CHEST/ABD IMPRESSION: 1. Unremarkable CT angiogram of the thoracic aorta. 2. A left-sided chest tube has been placed. There is only a small residual left pleural effusion and the left lung has been reinflated. 3. The right lung is clear noting dependent atelectasis. 4. Cardiomegaly and small pericardial effusion. 5. A trace pneumothorax is seen in the left lung base. 6. An endotracheal tube is new from previous and in appropriate position. 7. There are patchy airspace opacities within the lingula. This may present a mild inflammatory pneumonitis or possibly mild reexpansion edema. 8. Multinodular goiter. 9. Additional findings as above. CT ABD/PELVIS IMPRESSION: 1. Mild to moderate atherosclerotic change of the abdominal and pelvic arterial vasculature. 2. 70% stenosis of proximal right iliac artery. 3. Moderate scattered atherosclerotic change of the mesenteric vasculature. 4. No evidence for aneurysm or dissection. 5. Renal calcifications unchanged from the prior study. No evidence for hydronephrosis. 6. Mild renal atrophy unchanged. 7. Mild gallbladder distention. Assessment & Plan 61 yo M with massive L sided bloody pleural effusion, with unclear etiology. CELL LEAD/Neuro: GCS: 8T, Pupils: Pinpoint, reactive Focal Signs: None Sedation/pain control: Fentanyl and Versed drip CT: 12/14: No acute intracranial abnormalities Restraints: Bilateral soft wrist Neurologic prophylaxis: Not indicated currently Respiratory: Left chest tube in situ Vent Settings: type AC/CMV, rate 20, tidal volume 500, PEEP 5, FiO2 70% Chest X-ray: Reviewed, below HOB up 30 degrees: Yes Chlorhexidine: Yes Cardiovascular: CV drips: Not on any vasoactive medications Rhythm: Sinus EKG: NSR 82bpm, QTc 462 ECHO: Echo dated 11/19/16: * The left ventricle is normal in size. * There is moderate concentric left ventricular hypertrophy. * Ejection Fraction = 50-55%. * Grade I diastolic dysfunction, (abnormal relaxation pattern). * Small pericardial effusion. * There are no echocardiographic indications of cardiac tamponade. Fluids/Renal: IV Fluids: Fluids from intravenous medications, not currently on maintenance IV fluids due to CKD Net Urine: Minimal as of yet, but is on dialysis Weaver: Placed 12/14/16 GI/Nutrition: Feeding: None currently Prophylaxis: On PPI IV Bowel movements: Not as of yet Endocrine: Last 24 hour glucose: Currently 144, will monitor Hematology: Hemoglobin 6.4 on arrival, 7.0 after 2 units PRBC Transfusing 3rd unit now DVT prophylaxis: SCDs Infectious Disease/Immunology: Tmax: 36.5 Access: Peripheral IV. Has Right IJ Perm-A-Cath and Peritoneal dialysis catheter Antimicrobials: Vancomycin day 1 Zosyn extended infusion day 1 Cultures: Blood: Pending, taken 12/14 Respiratory: MRSA negative Pleural fluid: Gram stain - Moderate WBCs, No organisms. Culture pending. Resident Physician Supervision Note: Dr. Hendricks was resident physician during care of patient. I separately evaluated patient and did history and exam. I discussed the case with the resident and generally agree with the findings and plan. Additional history was obtained from the patient's , patient was admitted back in November and at that time started on Coumadin for atrial fibrillation. He is been under the care of nephrology for dialysis for approximately 5-6 weeks. reports that he has been complaining of left chest pain for approximately 3 weeks, he followed up with his primary care physician who obtained a chest x- ray which reportedly revealed fluid around the long. The primary care provider reportedly started the patient on Levaquin, and the patient has not reportedly followed up for INR checks. I obtained a limited bedside ultrasound today which revealed a large left pleural effusion consistent with loculations, I believe this is a complicated parapneumonic effusion. This was effectively drained with a chest tube, and 10 mg of TPA and 5 mg of dornase were instilled into the chest tube clamped for one hour and then subsequently drained. I performed this myself. At this point I believe the likely explanation is that the patient had some form of pneumonia which ultimately developed into a parapneumonic effusion, the Levaquin may have led to supratherapeutic levels and the irritation from the parapneumonic effusion with combination of nausea and violent retching prompted leading to create the hemothorax. The supratherapeutic INR also contributed to melanotic stools in the setting of possible gastritis. GI is following at this point, he did have a recent EGD and colonoscopy which did not reveal a diagnosis that would give us a cause for acute gastrointestinal bleeding. I have personally spent 125 minutes of critical care time in the direct management of this patient. This is a life/limb threatening event. This includes time spent evaluating patient, direct bedside care, chart review, placing orders, interpretation of diagnostic studies, discussion with consultants, patient, and family members, as well as other required patient management activities. This time is exclusive of all separately billable procedures, and teaching time and separate from and in addition to any other critical care service time. Documented By: Nishant Cannon DO Resident Tracking Resident Involvement: Resident Care Provided Care Provided: Adult Hospital Medicine (ICU)
[2016-12-14 13:41] LABS: HEMATOCRIT 23.3 % (42-52)
--- NOTE | 2016-12-14 14:28 | Procedure Note ---
Procedure Note Date of Service Dec 14, 2016. Procedure Note Procedure Date: 12/14/2016 Procedure: Endotracheal intubation Pre-procedure Diagnosis: Somnolence, supratherapeutic INR, anemia, critical illness Post-procedure Diagnosis: same as above Prior to Procedure: Informed Consent: Patient was verbally consented, his was present during our conversation signed his consent form due to the patient being critically ill Attending Staff: Heather Cannon DO Indications: Patient has a large left-sided complex pleural effusion that is causing mediastinal shift, profound anemia, and supratherapeutic INR. The identity of the patient was confirmed and a bedside time out was performed. Description of Procedure: Patient was evaluated and required intubation for impending respiratory failure. The patient was prepared in the usual fashion. A 2 Henderson laryngoscope was used. A 8.0 Fr endotrachial tube was placed endotracheally to 24 cm at the teeth. A grade 1 view was obtained. The endotracheal tube was noted to pass through the vocal cords. Chest rise was bilateral. Bilateral breath sounds were heard without air sounds in the abdomen. Mist was noted in the endotracheal tube. End-tidal CO2 measurement was positive. Chest x-ray shows proper endotracheal tube placement. Complications: None Findings: not applicable Specimens: not applicable Estimated blood loss: Zero
--- NOTE | 2016-12-14 14:32 | Pharmacy Progress Note ---
Pharmacy Antibiotic Consult Date of Service: Dec 14, 2016. Pharmacy Dosing Scope Pharmacy is consulted to initiate vancomycin and piperacillin/tazobactam IV dosing therapy, order appropriate labs and adjust drug dose/frequency. Subjective The patient is a 61 year old male admitted on Dec 14, 2016 at 06:43 for left pleural effusion, GI bleed. Objective Height (Feet): 5 Height (Inches): 9.00 Weight (Kilograms): 98.000 Lab Results (24hrs): Laboratory Tests Test 12/14/16 05:03 12/14/16 09:30 12/14/16 10:54 BUN/Creatinine Ratio 8.2 9.0 Blood Urea Nitrogen 99 mg/dl 76 mg/dl Creatinine 12.00 mg/dl 8.40 mg/dl White Blood Count 16.46 K/uL 13.26 K/uL Red Blood Count 2.16 M/uL 2.36 M/uL Hemoglobin 6.4 g/dL 7.0 g/dL Hematocrit 20.2 % 20.8 % Mean Corpuscular Volume 93.5 fL 88.1 fL Mean Corpuscular Hemoglobin 29.6 pg 29.7 pg Mean Corpuscular Hemoglobin Concent 31.7 g/dl 33.7 g/dl Platelet Count 360 K/uL 193 K/uL Mean Platelet Volume 8.8 fL 8.8 fL Neutrophils (%) (Auto) 88.5 % 86.7 % Lymphocytes (%) (Auto) 6.7 % 6.9 % Monocytes (%) (Auto) 3.7 % 5.8 % Eosinophils (%) (Auto) 0.1 % 0.0 % Basophils (%) (Auto) 0.1 % 0.1 % Neutrophils # (Auto) 14.59 K/uL 11.50 K/uL Lymphocytes # (Auto) 1.10 K/uL 0.91 K/uL Monocytes # (Auto) 0.61 K/uL 0.77 K/uL Eosinophils # (Auto) 0.01 K/uL 0.00 K/uL Basophils # (Auto) 0.01 K/uL 0.01 K/uL Micro Results: Item Value Date Time Gram Stain - Final Resulted 12/14/16 0740 Pleural Fluid (Thoracentesis) Left Blood Culture Received 12/14/16 0916 Blood Pending Blood Culture Received 12/14/16 0930 Blood Pending MRSA DNA Surveillance Screen - Final Complete 12/14/16 1025 Nasal Specimen Negative for MRSA by DNA Probe SPEC #: [id number] CELSA: 12/14/16 STATUS: RES REQ #: [id number] RECD: 12/14/16-[address] [facility] [address]: Mily Hendricks MD SOURCE: PLEURAL FL ENTR: 12/14/[address]: Keri Florence MD SPDESC: Vinay Riley, Emily Lopez M.D. Oncu, Kerim I., Karolina Ruiz M.D. Shippert, Brian W. , D.ODavid Mcmillan MD ORDERED: AER/NANCY CULTSMR COMMENTS: Has Specimen Been Obtained/Collected? Y Procedure Result Verified Site GRAM STAIN Final 12/14/16-1048 RESULT MODERATE WBCs SEEN NO ORGANISMS SEEN OR AER/NANCY CULT Results Pending Assessment & Plan Assessment: * 61 y/o male with the following healthcare associated risk factors: * ESRD with PD * recent hospital admission(s) * recent ABX use (levofloxacin) * Presentation with left loculated pleural effusion * WBC elevated, tachycardia * Levaquin [employer]ESPERSON MEATS * question treatment for pneumonia [employer]ESPERSON MEATS? Plan: * begin empiric treatment with broad-spectrum antibiotics for questionable infection of pleural effusion Vancomycin: * Loading dose: 2000 mg IV X 1 dose * dose given during emergent dialysis session today * random vancomycin level today after HD session, once patient re-equilibrates * re-dose when level is below 20mcg/mL (15-20mcg/mL is goal for sustained vancomycin level) Piperacillin/tazobactam: * Loading dose: 4.5g IV x1 dose given over 30 minutes * Maintenance dose: 4.5g IV every 12 hours (dose infused over 4 hours) * dose adjusted up for severity of illness * frequency adjusted from q8-->12H for CrCl below 20mL/min/HD patient Labs: * vancomycin random level ~19:00 tonight * further vancomycin random levels PRN * MRSA DNA nasal swab Pharmacy will continue to follow and will adjust dose/frequency as necessary. Thank you
--- NOTE | 2016-12-14 14:41 | Procedure Note ---
Procedure Note Date of Service Dec 14, 2016. Procedure Note Critical Care Medicine Point of Care Bedside Ultrasound Procedure: Limited Bedside Lung Ultrasound Procedure Date: 12/14/2016 Indication: Left loculated pleural effusion Attending: Heather Cannon DO Resident/Physician Circular Saw Filer: Eladio Organs Examined: Left Lung BLUE point (upper), BLUE point (lower), Phrenic Point (axillary), PLAPS point ( posterior) A lines visualized: None, Hemithorax: Left B lines visualized: None, Hemithorax: Left Lung Sliding: Present, Hemithorax: Left Tissue-like Sign: Presents, Hemithorax: Left Quad Sign: Present, Hemithorax: Left Sinusoid Sign: Present, Hemithorax: Left Type of effusions: Placated with loculation, Hemithorax: Left Interpleural distance: Than 3 cm Impression: Complex loculated effusion in the left hemithorax Plan: Tube thoracostomy drainage Images obtained are saved for permanent record
[2016-12-14 14:54] LABS: CKMB/CK RATIO 4.1 (0-3.0)
[2016-12-14 14:58] LABS: PLEURAL FLUID APPEARANCE BLOODY; PLEURAL FLUID COLOR RED; PLEURAL FLUID MONONUC RELAT 18.6 %; PLEURAL FLUID POLYNUC 81.4 %; PLEURAL FLUID SOURCE LEFT LUNG; PLEURAL FLUID WBC (A) 6037 /uL
[2016-12-14 15:01] LABS: PERIT FL WBC 64 /uL (0-300); PERITONEAL FLUID RBC < 3000 /uL
[2016-12-14] MEDS: PIPERACILL/TAZOBAC IV 4.5 GM in DEXTROSE 5% 100ML IV SCH (15:22)
[2016-12-14 15:35] LABS: PLEURAL FLUID GLUCOSE 104 mg/dl
--- NOTE | 2016-12-14 17:45 | Procedure Note ---
Procedure Note Date of Service Dec 14, 2016. Procedure Note Critical Care Medicine Procedure Date: 12/14/2016 Procedure: Thal-quick Tube Thoracostomy Pre-procedure Diagnosis: Complex left pleural effusion Post-procedure Diagnosis: same as above Prior to Procedure: Informed Consent: The risks, benefits, indications, potential complications, and alternatives were explained to the patient/family and informed consent obtained. Attending Staff: Heather Cannon D.O. Resident/Physician Hand Singer: Preeti Hendricks Indications: Dariel Grullon is a 61-year-old male patient with complex loculated pleural effusion The identity of the patient was confirmed and a bedside time out was performed. Description of Procedure: Patient positioned, prepped and draped in usual sterile fashion. Fluid collection identified at bedside by ultrasound on the left side. 1% Lidocaine without epinephrine (2 mL) was used to anesthetize the area. A Thal-Quick chest tube tray kit was used to enter the plural space, pleural fluid was aspirated, and a wire was introduced through the needle. The tract was dilated serially, and the 28 Fr thoracostomy tube was inserted via seldinger technique to 12 cm to the skin, and secured with 2-0 silk suture. Post procedure chest x-ray pending. Complications: None Findings: 3 L of dark serous pleural fluid was initially removed Total Fluid Removed: 3000 mL Color of Fluid: Serous Sent for: Gram Stain, culture, cell count, glucose, protein, LDH, pleural pH, amylase Estimated blood loss: Trace Images obtained are saved for permanent record
[2016-12-14 18:27] LABS: HEMATOCRIT 21.1 % (42-52)
[2016-12-14 18:59] LABS: BUN/CREATININE RATIO 7.1 (10-20); CALCIUM 7.6 mg/dl (8.5-10.1); CREATININE 7.9 mg/dl (0.60-1.40); POTASSIUM 4.5 mmol/L (3.5-5.1)
[2016-12-14] MEDS ORDERED: NURSING VERBAL MED ORDER ONE (20:00)
[2016-12-14] MEDS ORDERED: VANCOMYCIN INJ 500 MG in SODIUM CHLORIDE 0.9% 100ML 100 ML IV ONE (20:30)
[2016-12-14 22:59] LABS: CKMB/CK RATIO 5.2 (0-3.0)
[2016-12-15] VITALS (30 sets, daily range): BP systolic 104–161; BP diastolic 64–91; PULSE 82–115; TEMP 36.9–37.3; O2SAT 92–100
[2016-12-15] MEDS: PIPERACILL/TAZOBAC IV 4.5 GM in DEXTROSE 5% 100ML IV SCH ×2 (03:46→16:46)
[2016-12-15] MEDS: PANTOprazole INJ 40 MG in DEXTROSE 5% 100ML IV SCH (03:46)
[2016-12-15 06:37] LABS: BASO % 0.1 %; BASO ABS # 0.01 K/uL (0-0.2); EOS % 1.5 %; HEMATOCRIT 22.5 % (42-52); IG% 0.4 %; LYMPH % 7.3 %; LYMPH ABS # 0.71 K/uL (1.2-3.4); MEAN CELL VOLUME 85.9 fL (80-100); MEAN CORPUSCULAR HEMOGLOBIN 28.6 pg (25-34); MEAN CORPUSCULAR HGB CONC 33.3 g/dl (32-36); MEAN PLATELET VOLUME 8.8 fL (7.4-10.4); MONO % 11.6 %; NEUT % 79.1 %; PLATELET COUNT 171 K/uL (130-400); RED BLOOD COUNT 2.62 M/uL (4.7-6.1); WHITE BLOOD COUNT 9.78 K/uL (4.8-10.8)
[2016-12-15 06:51] LABS: PROTHROMBIN TIME (PATIENT) 10.9 SECONDS (9.0-12.0)
[2016-12-15 07:00] LABS: ALKALINE PHOSPHATASE 40 U/L (45-117); ALT/SGPT 49 U/L (12-78); AST/SGOT 24 U/L (15-37); BLOOD UREA NITROGEN 61 mg/dl (7-18); BUN/CREATININE RATIO 6.7 (10-20); CALCIUM 7.5 mg/dl (8.5-10.1); CARBON DIOXIDE 26 mmol/L (21-32); CHLORIDE 99 mmol/L (98-107); GLUCOSE 92 mg/dl (70-99); PHOSPHORUS 7.6 mg/dl (2.5-4.9); SODIUM 136 mmol/L (136-145)
[2016-12-15 07:03] LABS: ANISOCYTOSIS PRESENT; COMPLETE YES; POLYCHROMASIA 1+
[2016-12-15] MEDS ORDERED: ROCURONIUM BROMIDE 10 MG/ML 5 ML VIAL IV ONE (07:22)
[2016-12-15] MEDS ORDERED: ETOMIDATE 2 MG/ML 20 ML VIAL IV ONE (07:22)
--- NOTE | 2016-12-15 07:52 | DIAGNOSTIC IMAGING REPORT ---
CHEST ONE VIEW PORTABLE HISTORY: PLEURAL EFFUSION COMPARISON: Chest 12/14/2016. FINDINGS: The right lung remains clear. No pneumothorax. Left-sided chest tube terminates in the left midlung zone. Small partially loculated left pleural effusion and left mid to lower lung zone densities remain unchanged. The heart remains mildly enlarged. Right jugular catheter terminates in the SVC. IMPRESSION: Small partially loculated left pleural effusion and left basilar densities remain unchanged. The left-sided chest tube terminates in the left midlung zone. No definite pneumothorax. Electronically signed by: Lei Monique M.D. 12/15/2016 7:50 AM Dictated Date/Time: 12/15/2016 7:49 AM
[2016-12-15] MEDS ORDERED: EPOETIN ALFA 10,000 UNITS/ML VIAL IV. ONE (08:00)
[2016-12-15] MEDS ORDERED: ALTEPLASE, RECOMBINANT 1 MG/ML 2 ML VIAL IPL ONE (08:45)
--- NOTE | 2016-12-15 08:45 | Nephrology Progress Note ---
Nephrology Progress Note Date of Service: Dec 15, 2016. Subjective CT angio negative for dissection/extravasation; minimal uop per nursing; extbuated now on 4L; no c/o except chest tube pain Objective Date Time Temp Pulse Resp B/P Pulse Ox O2 Delivery O2 Flow Rate FiO2 12/15/16 05:00 86 16 147/71 96 12/15/16 04:00 100 Nasal Cannula 4.0 12/15/16 04:00 36.9 96 24 161/85 99 Nasal Cannula 4.0 12/15/16 02:00 85 12 149/69 96 12/15/16 00:01 82 10 145/71 100 Nasal Cannula 4.0 12/14/16 23:59 100 Nasal Cannula 4.0 12/14/16 23:00 79 14 140/66 100 Nasal Cannula 4.0 12/14/16 22:00 83 16 133/64 100 Nasal Cannula 4.0 12/14/16 20:00 100 Nasal Cannula 12/14/16 20:00 36.5 87 16 151/70 100 Nasal Cannula 4.0 12/14/16 18:00 84 18 144/70 99 Nasal Cannula 4.0 12/14/16 16:40 35 12/14/16 16:00 36.5 84 16 136/76 100 Mechanical Ventilator 35 12/14/16 16:00 35 12/14/16 16:00 100 Mechanical Ventilator 35 12/14/16 14:00 88 10 126/73 100 Mechanical Ventilator 35 12/14/16 13:43 35 12/14/16 13:15 36.4 93 103/61 12/14/16 13:00 36.4 92 17 118/67 100 Mechanical Ventilator 12/14/16 12:45 93 18 103/61 99 Mechanical Ventilator 12/14/16 12:30 94 21 108/64 98 Mechanical Ventilator 12/14/16 12:30 94 108/64 12/14/16 12:15 94 98/61 12/14/16 12:15 95 15 98/61 99 Mechanical Ventilator 12/14/16 12:00 96 95/63 12/14/16 12:00 99 Mechanical Ventilator 12/14/16 12:00 36.4 96 20 95/63 98 Mechanical Ventilator 50 12/14/16 12:00 96 20 95/63 98 12/14/16 11:55 50 12/14/16 11:45 98 115/69 4/11/17 11:30 94 113/71 12/14/16 11:15 93 131/76 12/14/16 11:15 93 15 131/76 100 12/14/16 11:00 90 145/72 12/14/16 11:00 90 15 150/83 100 12/14/16 10:45 88 148/79 12/14/16 10:45 88 18 148/79 100 12/14/16 10:34 90 141/75 12/14/16 10:30 91 19 145/72 100 12/14/16 10:23 70 12/14/16 09:30 96 18 141/84 100 12/14/16 09:29 36.5 101 21 172/109 100 Mechanical Ventilator 100 12/14/16 09:29 96 141/84 12/14/16 09:15 97 155/92 12/14/16 09:15 97 17 155/92 100 12/14/16 09:00 98 19 154/94 100 12/14/16 09:00 97 154/94 12/14/16 08:47 98 167/89 12/14/16 08:45 98 24 167/89 100 Physical Exam: General Appearance: WD/WN, + oriented x 3 on 02NC ENT: eomi, dry mm Neck: supple Respiratory/Chest: + decreased breath sounds and L chest crackles, + pertinent finding (chest tube L w/ minimal output); TDC R chest Cardiovascular: + tachycardia, + pertinent finding (trace ble EDEMA) Abdomen: non tender, soft, + pertinent finding (PD catheter present; no lincoln) Extremities: + pedal edema, + swelling Neurologic/Psych: gotti, fluent though perseverant speech Skin: no rash, + pallor Current Inpatient Medications Medications (Trade) Dose Ordered Sig/Aleksandra Route Start Time Stop Time Status Last Admin Dose Admin Vancomycin HCl (Consult) 1 ea UD PRN N/A 12/14/16 07:15 01/13/17 07:14 Piperacillin Sod/ Tazobactam Sod 1 ea 1 ea UD PRN N/A 12/14/16 07:15 01/13/17 07:14 Pantoprazole Sodium 40 mg/ Dextrose 100 ml @ 20 mls/hr Q5H IV 12/14/16 07:30 01/13/17 07:29 12/15/16 03:46 20 MLS/HR Piperacillin Sod/ Tazobactam Sod/ Dextrose (Zosyn Iv/D5 100ml) 120 ml @ 30 mls/hr Q12H IV 12/14/16 16:00 12/21/16 15:59 12/15/16 03:46 30 MLS/HR Ioversol 125 ml 125 ml UD PRN IV 12/14/16 10:30 12/18/16 10:29 Epoetin Carlos Alberto/ Syringe (Procrit Inj/ Syringe) 0.6 ml @ 1 mls/min TODAY@0600 IV. 12/15/16 06:00 12/15/16 18:00 Last 24 Hours Test 12/14/16 09:30 12/14/16 10:54 12/14/16 12:55 12/14/16 13:35 Sodium Level 137 mmol/L Potassium Level 5.7 mmol/L Chloride Level 102 mmol/L Carbon Dioxide Level 24 mmol/L Anion Gap 11.0 mmol/L Blood Urea Nitrogen 76 mg/dl Creatinine 8.40 mg/dl Est Creatinine Clear Calc Drug Dose 10.7 ml/min Estimated GFR () 7.2 Estimated GFR (Non- 6.2 BUN/Creatinine Ratio 9.0 Random Glucose 118 mg/dl Calcium Level 8.2 mg/dl Phosphorus Level 5.9 mg/dl Magnesium Level 2.4 mg/dl Total Bilirubin 0.6 mg/dl Direct Bilirubin 0.1 mg/dl Aspartate Amino Transf (AST/SGOT) 67 U/L Alanine Aminotransferase (ALT/SGPT) 75 U/L Alkaline Phosphatase 45 U/L Total Protein 5.9 gm/dl Albumin 2.7 gm/dl White Blood Count 13.26 K/uL Red Blood Count 2.36 M/uL Hemoglobin 7.0 g/dL 7.8 g/dL Hematocrit 20.8 % 23.3 % Mean Corpuscular Volume 88.1 fL Mean Corpuscular Hemoglobin 29.7 pg Mean Corpuscular Hemoglobin Concent 33.7 g/dl Platelet Count 193 K/uL Mean Platelet Volume 8.8 fL Neutrophils (%) (Auto) 86.7 % Lymphocytes (%) (Auto) 6.9 % Monocytes (%) (Auto) 5.8 % Eosinophils (%) (Auto) 0.0 % Basophils (%) (Auto) 0.1 % Neutrophils # (Auto) 11.50 K/uL Lymphocytes # (Auto) 0.91 K/uL Monocytes # (Auto) 0.77 K/uL Eosinophils # (Auto) 0.00 K/uL Basophils # (Auto) 0.01 K/uL RDW Standard Deviation 59.3 fL RDW Coefficient of Variation 18.8 % Immature Granulocyte % (Auto) 0.5 % Immature Granulocyte # (Auto) 0.07 K/uL Anisocytosis PRESENT Prothrombin Time 12.6 SECONDS Prothromb Time International Ratio 1.2 Activated Partial Thromboplast Time 27.1 SECONDS Partial Thromboplastin Ratio 1.0 Fibrinogen 427 mg/dl Fibrin Degradation Products 10-40 mcg/ml D-Dimer 4080 ug/L FEU Venous Blood pH 7.35 Venous Blood Partial Pressure CO2 44 mmHg Venous Blood Partial Pressure O2 63 mmHg Venous Blood HCO3 24 mmol/L Venous Blood Oxygen Saturation 88.9 % Venous Blood Base Excess -1.9 mmol/L Peritoneal Fluid Color PINK Peritoneal Fluid Appearance CLEAR Peritoneal Fluid WBC 64 /uL Peritoneal Fluid RBC < 3000 /uL Peritoneal Fld Mononuclear WBCs (%) 54.7 % Peritoneal Fld Polynuclear WBCs (%) 45.3 % Test 12/14/16 14:15 12/14/16 14:19 12/14/16 15:42 12/14/16 18:15 Pleural Fluid Source LEFT LUNG Pleural Fluid Color RED Pleural Fluid Appearance BLOODY Pleural Fluid WBC 6037 /uL Pleural Fluid RBC 164101 /uL Pleural Fluid Polynuclear WBCs % 81.4 % Pleural Fluid Mononuclear WBCs % 18.6 % Pleural Fluid Total Protein 4.0 g/dl Pleural Fluid Albumin 1.9 g/dl Pleural Fluid LDH 518 IU Pleural Fluid Glucose 104 mg/dl Pleural Fluid Amylase 57 U/L Pleural Fluid Triglycerides 54 mg/dl Total Creatine Kinase 29 U/L Creatine Kinase MB 1.2 ng/ml Creatine Kinase MB Ratio 4.1 Troponin I 0.016 ng/ml Bedside Glucose 103 mg/dl Hemoglobin 7.2 g/dL Hematocrit 21.1 % Sodium Level 139 mmol/L Potassium Level 4.5 mmol/L Chloride Level 100 mmol/L Carbon Dioxide Level 27 mmol/L Anion Gap 12.0 mmol/L Blood Urea Nitrogen 56 mg/dl Creatinine 7.90 mg/dl Est Creatinine Clear Calc Drug Dose 11.3 ml/min Estimated GFR () 7.7 Estimated GFR (Non- 6.6 BUN/Creatinine Ratio 7.1 Random Glucose 95 mg/dl Calcium Level 7.6 mg/dl Random Vancomycin Level 16.0 mcg/ml Test 12/14/16 20:31 12/15/16 00:44 12/15/16 06:25 Total Creatine Kinase 29 U/L Creatine Kinase MB 1.5 ng/ml Creatine Kinase MB Ratio 5.2 Troponin I 0.022 ng/ml Hemoglobin 7.1 g/dL 7.5 g/dL Hematocrit 21.0 % 22.5 % White Blood Count 9.78 K/uL Red Blood Count 2.62 M/uL Mean Corpuscular Volume 85.9 fL Mean Corpuscular Hemoglobin 28.6 pg Mean Corpuscular Hemoglobin Concent 33.3 g/dl Platelet Count 171 K/uL Mean Platelet Volume 8.8 fL Neutrophils (%) (Auto) 79.1 % Lymphocytes (%) (Auto) 7.3 % Monocytes (%) (Auto) 11.6 % Eosinophils (%) (Auto) 1.5 % Basophils (%) (Auto) 0.1 % Neutrophils # (Auto) 7.74 K/uL Lymphocytes # (Auto) 0.71 K/uL Monocytes # (Auto) 1.13 K/uL Eosinophils # (Auto) 0.15 K/uL Basophils # (Auto) 0.01 K/uL RDW Standard Deviation 65.8 fL RDW Coefficient of Variation 21.6 % Immature Granulocyte % (Auto) 0.4 % Immature Granulocyte # (Auto) 0.04 K/uL Polychromasia 1+ Anisocytosis PRESENT Prothrombin Time 10.9 SECONDS Prothromb Time International Ratio 1.0 Activated Partial Thromboplast Time 26.0 SECONDS Partial Thromboplastin Ratio 1.0 Sodium Level 136 mmol/L Potassium Level 5.0 mmol/L Chloride Level 99 mmol/L Carbon Dioxide Level 26 mmol/L Anion Gap 11.0 mmol/L Blood Urea Nitrogen 61 mg/dl Creatinine 9.10 mg/dl Est Creatinine Clear Calc Drug Dose 9.6 ml/min Estimated GFR () 6.5 Estimated GFR (Non- 5.6 BUN/Creatinine Ratio 6.7 Random Glucose 92 mg/dl Calcium Level 7.5 mg/dl Phosphorus Level 7.6 mg/dl Magnesium Level 2.0 mg/dl Total Bilirubin 0.5 mg/dl Direct Bilirubin < 0.1 mg/dl Aspartate Amino Transf (AST/SGOT) 24 U/L Alanine Aminotransferase (ALT/SGPT) 49 U/L Alkaline Phosphatase 40 U/L Total Protein 4.8 gm/dl Albumin 2.1 gm/dl Lipase 75 U/L Date/Time Source Procedure Growth Status 12/14/16 09:30 Blood Blood Culture Pending Received 12/14/16 09:16 Blood Blood Culture Pending Received 12/14/16 10:25 Nasal MRSA DNA Surveillance Screen - Final Specimen Negative for MRSA by DNA Probe Complete Assessment & Plan 61 y/o M w/ ESRD, AFib, frequent admissions for hyperkalemia, indwelling PD catheter admitted w/ hyperkalemia, large loculated L pleural effusion which proved to be hemothorax, acute on chronic anemia after presenting w/ N/V, abd pain, L flank pain on 12/14. ESRD -HD today; continue near daily tx as inpt Abd pain on presentation w/ concern for penetrating aortic ulcer or dissection -PD fluid studies negative for peritonitis; though he proudly tells me about contraindicated methods of pulling pd cath out "cleaning it" and reinserting ( partway) >>strongly advised him against this practice Acute on chronic anemia w/ supratherapeutic INR -may need pRBC < per primary service and critical care; no heparin and will give aggressive epo on hd L hemothorax -HD to improve total dialysis adequacy; further eval per critical care Appreciate consultation; will follow with you.
[2016-12-15] MEDS ORDERED: DORNASE ALFA 2.5MG 5 ML in SYRINGE 25 ML IPL ONE (09:00)
--- NOTE | 2016-12-15 09:03 | Critical Care Progress Note ---
Critical Care Progress Note Date of Service Dec 15, 2016. ICU Day ICU Day Number: [address] Cannon Subjective Yesterday evening around 5pm patient was successfully extubated Overnight he did mention to RN that he frequently takes herbal supplements for his hyperkalemia and that "atrial fibrillation is caused by a virus" Has been awake and alert this morning, denies any pain Objective GENERAL: Awake, alert, well-appearing, in no acute distress HENT: Normocephalic, atraumatic. Oropharynx unremarkable. EYES: Normal conjunctiva. Sclera non-icteric. NECK: Supple. No nuchal rigidity. FROM. No JVD. RESPIRATORY: Left crackles, chest tube in place. CARDIAC: Regular rate, normal rhythm. Extremities warm and well perfused. Pulses equal. ABDOMEN: Soft, non-distended. No tenderness to palpation. No rebound or guarding. No masses. Peritoneal dialysis catheter present. LOWER EXTREMITIES: Calves are equal size bilaterally and non-tender. No edema. No discoloration. NEURO: Normal sensorium. No sensory or motor deficits noted. SKIN: No rash or jaundice noted. Current SOFA Score SOFA Score Response (Comments) Value Level of Hypotension No Hypotension 0 Total 0 Previous SOFA Scores 8 on 12/14/16 Assessment & Plan 61 yo M with end stage CKD with massive L sided bloody parapneumonic effusion, now improved after chest tube placement. Likely due to Levaquin use interacting with Coumadin causing a supratherapeutic INR, then had persistent coughing with vomiting produced effusion. COMMISSARY OFFICER/Neuro: At baseline. Sedation/pain control: Fentanyl and Versed drip turned off, CT: 12/14: No acute intracranial abnormalities Restraints: Bilateral soft wrist removed Respiratory: Left chest tube in situ, 50cc drained overnight Chest X-ray (12/15): Small partially loculated L pleural effusion and L basilar densities remain unchanged. The L side chest tube terminates in L midlung zone. No definite pneumothorax. *Dr Cannon instilled the DNAse and tPAse today into the left pleural catheter. Pt then had it clamped for an hour, then opened. Cardiovascular: CV drips: Not on any vasoactive medications Rhythm: Sinus EKG (12/15): NSR, 97bpm, QTc 462 ECHO: Echo dated 11/19/16: * The left ventricle is normal in size. * There is moderate concentric left ventricular hypertrophy. * Ejection Fraction = 50-55%. * Grade I diastolic dysfunction, (abnormal relaxation pattern). * Small pericardial effusion. * There are no echocardiographic indications of cardiac tamponade. Fluids/Renal: Will be getting dailysis daily while in hospital IV Fluids: Fluids from intravenous medications, not currently on maintenance IV fluids due to CKD Net fluid balance: yesterday was -2515mL. Weaver: Placed 12/14/16 GI/Nutrition: Feeding: Clear liquid diet, advancing diet as tolerated Prophylaxis: On PPI IV drip, will switch this to IV push BID today Bowel movements: Not as of yet Endocrine: Last 24 hour glucose: Ranges 104-144 Hematology: Received 3 units PRBC total on 12/14/16 Hb at 7.5 Continue to trend H&H Would transfuse if Hb <6.5. DVT prophylaxis: SCDs, Heparin 500q8h Infectious Disease/Immunology: Tmax: 36.5 Access: Peripheral IVs x 2. Has Right IJ Perm-A-Cath and Peritoneal dialysis catheter Antimicrobials: Vancomycin day 2 Zosyn day 2 Cultures: Blood: Pending, taken 12/14 Respiratory: MRSA negative Pleural fluid: Gram stain - Moderate WBCs, No organisms. Culture pending. The patient is stable to be transferred to the Med/Surg floor. Please do not hesitate to contact us with any questions or concerns. Resident Physician Supervision Note: Dr. Hendricks was resident physician during care of patient. I separately evaluated patient and did history and exam. I discussed the case with the resident and generally agree with the findings and plan. Patient significantly improved, continue to trend H&H after TPA instillation into the pleural space. I personally instilled the dornase and TPA, it was clamped for 1 hour after unclamping approximately 400 mL was removed. Stable for downgraded to telemetry status. CT surgery still following for additional chest tube management. Documented By: Nishant Cannon DO Consults & Procedures Consultants: GI Procedures: L chest tube placed 12/14/16 Data Medications: Current Inpatient Medications Medications (Trade) Dose Ordered Sig/Aleksandra Route Start Time Stop Time Status Last Admin Dose Admin Vancomycin HCl (Consult) 1 ea UD PRN N/A 12/14/16 07:15 01/13/17 07:14 Piperacillin Sod/ Tazobactam Sod 1 ea 1 ea UD PRN N/A 12/14/16 07:15 01/13/17 07:14 Piperacillin Sod/ Tazobactam Sod/ Dextrose (Zosyn Iv/D5 100ml) 120 ml @ 30 mls/hr Q12H IV 12/14/16 16:00 12/21/16 15:59 12/15/16 03:46 30 MLS/HR Ioversol 125 ml 125 ml UD PRN IV 12/14/16 10:30 12/18/16 10:29 Epoetin Carlos Alberto 51187 units/ Syringe 0.6 ml @ 1 mls/min TODAY@0600 IV. 12/15/16 06:00 12/15/16 18:00 Dornase Carlos Alberto/ Syringe (Pulmozyme Inhalation Soln 2.5ml Amp/Syringe) 30 ml @ 0 mls/hr TODAY@0900 ONCE IPL 12/15/16 09:00 12/15/16 09:01 Amlodipine Besylate (Norvasc Tab) 5 mg QAM PO 12/15/16 09:00 01/14/17 08:59 UNV Amiodarone HCl (Cordarone Tab) 200 mg QAM PO 12/15/16 09:00 01/14/17 08:59 UNV Carvedilol (Coreg Tab) 12.5 mg BID PO 12/15/16 09:00 01/14/17 08:59 UNV I & O: 24-Hour Column 12/15/16 08:00 Intake Total 2831 ml Output Total 5134 ml Balance -2303 ml Vital Signs: Date Time Temp Pulse Resp B/P Pulse Ox O2 Delivery O2 Flow Rate FiO2 12/15/16 05:00 86 16 147/71 96 12/15/16 04:00 100 Nasal Cannula 4.0 12/15/16 04:00 36.9 96 24 161/85 99 Nasal Cannula 4.0 12/15/16 02:00 85 12 149/69 96 12/15/16 00:01 82 10 145/71 100 Nasal Cannula 4.0 12/14/16 23:59 100 Nasal Cannula 4.0 12/14/16 23:00 79 14 140/66 100 Nasal Cannula 4.0 12/14/16 22:00 83 16 133/64 100 Nasal Cannula 4.0 12/14/16 20:00 100 Nasal Cannula 12/14/16 20:00 36.5 87 16 151/70 100 Nasal Cannula 4.0 12/14/16 18:00 84 18 144/70 99 Nasal Cannula 4.0 12/14/16 16:40 35 12/14/16 16:00 36.5 84 16 136/76 100 Mechanical Ventilator 35 12/14/16 16:00 35 12/14/16 16:00 100 Mechanical Ventilator 35 12/14/16 14:00 88 10 126/73 100 Mechanical Ventilator 35 12/14/16 13:43 35 12/14/16 13:15 36.4 93 103/61 12/14/16 13:00 36.4 92 17 118/67 100 Mechanical Ventilator 12/14/16 12:45 93 18 103/61 99 Mechanical Ventilator 12/14/16 12:30 94 21 108/64 98 Mechanical Ventilator 12/14/16 12:30 94 108/64 12/14/16 12:15 94 98/61 12/14/16 12:15 95 15 98/61 99 Mechanical Ventilator 12/14/16 12:00 96 95/63 12/14/16 12:00 99 Mechanical Ventilator 12/14/16 12:00 36.4 96 20 95/63 98 Mechanical Ventilator 50 12/14/16 12:00 96 20 95/63 98 12/14/16 11:55 50 12/14/16 11:45 98 115/69 12/14/16 11:30 94 113/71 12/14/16 11:15 93 131/76 12/14/16 11:15 93 15 131/76 100 12/14/16 11:00 90 145/72 12/14/16 11:00 90 15 150/83 100 12/14/16 10:45 88 148/79 12/14/16 10:45 88 18 148/79 100 12/14/16 10:34 90 141/75 12/14/16 10:30 91 19 145/72 100 12/14/16 10:23 70 12/14/16 09:30 96 18 141/84 100 12/14/16 09:29 36.5 101 21 172/109 100 Mechanical Ventilator 100 12/14/16 09:29 96 141/84 12/14/16 09:15 97 155/92 12/14/16 09:15 97 17 155/92 100 12/14/16 09:00 98 19 154/94 100 12/14/16 09:00 97 154/94 Laboratory Results: Last 24 Hours Test 12/14/16 09:30 12/14/16 10:54 12/14/16 12:55 12/14/16 13:35 Sodium Level 137 mmol/L Potassium Level 5.7 mmol/L Chloride Level 102 mmol/L Carbon Dioxide Level 24 mmol/L Anion Gap 11.0 mmol/L Blood Urea Nitrogen 76 mg/dl Creatinine 8.40 mg/dl Est Creatinine Clear Calc Drug Dose 10.7 ml/min Estimated GFR () 7.2 Estimated GFR (Non- 6.2 BUN/Creatinine Ratio 9.0 Random Glucose 118 mg/dl Calcium Level 8.2 mg/dl Phosphorus Level 5.9 mg/dl Magnesium Level 2.4 mg/dl Total Bilirubin 0.6 mg/dl Direct Bilirubin 0.1 mg/dl Aspartate Amino Transf (AST/SGOT) 67 U/L Alanine Aminotransferase (ALT/SGPT) 75 U/L Alkaline Phosphatase 45 U/L Total Protein 5.9 gm/dl Albumin 2.7 gm/dl White Blood Count 13.26 K/uL Red Blood Count 2.36 M/uL Hemoglobin 7.0 g/dL 7.8 g/dL Hematocrit 20.8 % 23.3 % Mean Corpuscular Volume 88.1 fL Mean Corpuscular Hemoglobin 29.7 pg Mean Corpuscular Hemoglobin Concent 33.7 g/dl Platelet Count 193 K/uL Mean Platelet Volume 8.8 fL Neutrophils (%) (Auto) 86.7 % Lymphocytes (%) (Auto) 6.9 % Monocytes (%) (Auto) 5.8 % Eosinophils (%) (Auto) 0.0 % Basophils (%) (Auto) 0.1 % Neutrophils # (Auto) 11.50 K/uL Lymphocytes # (Auto) 0.91 K/uL Monocytes # (Auto) 0.77 K/uL Eosinophils # (Auto) 0.00 K/uL Basophils # (Auto) 0.01 K/uL RDW Standard Deviation 59.3 fL RDW Coefficient of Variation 18.8 % Immature Granulocyte % (Auto) 0.5 % Immature Granulocyte # (Auto) 0.07 K/uL Anisocytosis PRESENT Prothrombin Time 12.6 SECONDS Prothromb Time International Ratio 1.2 Activated Partial Thromboplast Time 27.1 SECONDS Partial Thromboplastin Ratio 1.0 Fibrinogen 427 mg/dl Fibrin Degradation Products 10-40 mcg/ml D-Dimer 4080 ug/L FEU Venous Blood pH 7.35 Venous Blood Partial Pressure CO2 44 mmHg Venous Blood Partial Pressure O2 63 mmHg Venous Blood HCO3 24 mmol/L Venous Blood Oxygen Saturation 88.9 % Venous Blood Base Excess -1.9 mmol/L Peritoneal Fluid Color PINK Peritoneal Fluid Appearance CLEAR Peritoneal Fluid WBC 64 /uL Peritoneal Fluid RBC < 3000 /uL Peritoneal Fld Mononuclear WBCs (%) 54.7 % Peritoneal Fld Polynuclear WBCs (%) 45.3 % Test 12/14/16 14:15 12/14/16 14:19 12/14/16 15:42 12/14/16 18:15 Pleural Fluid Source LEFT LUNG Pleural Fluid Color RED Pleural Fluid Appearance BLOODY Pleural Fluid WBC 6037 /uL Pleural Fluid RBC 954857 /uL Pleural Fluid Polynuclear WBCs % 81.4 % Pleural Fluid Mononuclear WBCs % 18.6 % Pleural Fluid Total Protein 4.0 g/dl Pleural Fluid Albumin 1.9 g/dl Pleural Fluid LDH 518 IU Pleural Fluid Glucose 104 mg/dl Pleural Fluid Amylase 57 U/L Pleural Fluid Triglycerides 54 mg/dl Total Creatine Kinase 29 U/L Creatine Kinase MB 1.2 ng/ml Creatine Kinase MB Ratio 4.1 Troponin I 0.016 ng/ml Bedside Glucose 103 mg/dl Hemoglobin 7.2 g/dL Hematocrit 21.1 % Sodium Level 139 mmol/L Potassium Level 4.5 mmol/L Chloride Level 100 mmol/L Carbon Dioxide Level 27 mmol/L Anion Gap 12.0 mmol/L Blood Urea Nitrogen 56 mg/dl Creatinine 7.90 mg/dl Est Creatinine Clear Calc Drug Dose 11.3 ml/min Estimated GFR () 7.7 Estimated GFR (Non- 6.6 BUN/Creatinine Ratio 7.1 Random Glucose 95 mg/dl Calcium Level 7.6 mg/dl Random Vancomycin Level 16.0 mcg/ml Test 12/14/16 20:31 12/15/16 00:44 12/15/16 06:25 Total Creatine Kinase 29 U/L Creatine Kinase MB 1.5 ng/ml Creatine Kinase MB Ratio 5.2 Troponin I 0.022 ng/ml Hemoglobin 7.1 g/dL 7.5 g/dL Hematocrit 21.0 % 22.5 % White Blood Count 9.78 K/uL Red Blood Count 2.62 M/uL Mean Corpuscular Volume 85.9 fL Mean Corpuscular Hemoglobin 28.6 pg Mean Corpuscular Hemoglobin Concent 33.3 g/dl Platelet Count 171 K/uL Mean Platelet Volume 8.8 fL Neutrophils (%) (Auto) 79.1 % Lymphocytes (%) (Auto) 7.3 % Monocytes (%) (Auto) 11.6 % Eosinophils (%) (Auto) 1.5 % Basophils (%) (Auto) 0.1 % Neutrophils # (Auto) 7.74 K/uL Lymphocytes # (Auto) 0.71 K/uL Monocytes # (Auto) 1.13 K/uL Eosinophils # (Auto) 0.15 K/uL Basophils # (Auto) 0.01 K/uL RDW Standard Deviation 65.8 fL RDW Coefficient of Variation 21.6 % Immature Granulocyte % (Auto) 0.4 % Immature Granulocyte # (Auto) 0.04 K/uL Polychromasia 1+ Anisocytosis PRESENT Prothrombin Time 10.9 SECONDS Prothromb Time International Ratio 1.0 Activated Partial Thromboplast Time 26.0 SECONDS Partial Thromboplastin Ratio 1.0 Sodium Level 136 mmol/L Potassium Level 5.0 mmol/L Chloride Level 99 mmol/L Carbon Dioxide Level 26 mmol/L Anion Gap 11.0 mmol/L Blood Urea Nitrogen 61 mg/dl Creatinine 9.10 mg/dl Est Creatinine Clear Calc Drug Dose 9.6 ml/min Estimated GFR () 6.5 Estimated GFR (Non- 5.6 BUN/Creatinine Ratio 6.7 Random Glucose 92 mg/dl Calcium Level 7.5 mg/dl Phosphorus Level 7.6 mg/dl Magnesium Level 2.0 mg/dl Total Bilirubin 0.5 mg/dl Direct Bilirubin < 0.1 mg/dl Aspartate Amino Transf (AST/SGOT) 24 U/L Alanine Aminotransferase (ALT/SGPT) 49 U/L Alkaline Phosphatase 40 U/L Total Protein 4.8 gm/dl Albumin 2.1 gm/dl Lipase 75 U/L Resident Tracking Resident Involvement: Resident Care Provided Care Provided: Adult Hospital Medicine (ICU)
[2016-12-15] MEDS: PANTOprazole INJ 40 MG in SYRINGE 0 ML IV SCH ×2 (09:56→20:41)
--- NOTE | 2016-12-15 10:46 | Progress Note ---
Internal Med Progress Note Date of Service: Dec 15, 2016. Provider Documentation: SUBJECTIVE: Patient is seen and examined at bedside. He was extubated yesterday. Currently saturating well on 2l NC and currently undergoing dialysis. States having some pain on left side of chest. Denies any chest pain, SOB, cough, dizziness, nausea , abd pain. OBJECTIVE: Vital Signs-as noted below Physical Exam: General Appearance:Moderately built and nourished, no apparent distress Head: normocephalic, Atraumatic Eyes: normal inspection, EOMI, PERRLA Neck: supple, Trachea midline Respiratory/Chest: Left sided crackles, + chest tube in place. No accessory muscle use Cardiovascular: S1, S2, + tachycardia, No murmur Abdomen/GI:Soft, Non tender, Bowel sounds present, No guarding/rigidity/ organomegaly Extremities/Musculoskelatal:normal inspection, + pedal edema, L >R Neurologic/Psych:AAOX3, grossly no focal neurological deficits Skin: normal color, warm Lab data as noted below. ASSESSMENT & PLAN: Back pain: Secondary to left hemorrhagic loculated pleural effusion with mediastinal shift S/P Left chest tube on 12/14/2016 CTA: Negative for aortic dissection Follow up plural fluid studies Appreciate Mechanical Assembler/CT surgery help DNAse and tPAse today into the left pleural catheter Pleural fluid: Gram stain - Moderate WBCs, No organisms. Culture pending. Metabolic Encephalopathy: Resolved Could be secondary to Uremia, acute illness CT head:No acute pathology On dialysis per Nephrology Hyperkalemia: H/O ESRD ON HD and planned for transitioned to PD S/P Calcium, Bicarb, Insulin, Glucose while in ED Resolved Currently getting HD Nephrology on board Anemia: H/O GI bleed, ESRD Likely multifactorial: R/O upper GI bleed, ESRD On Protonix IV BID S/P 3 units PRBCs Monitor H&H Transfuse PRN GI on board Hyper coagulopathy: Resolved On coumadin at home for P.afib S/P Vit K and Kcentra Coumadin discontinue Monitor INR:1.0 today Hypertension: H/O non compliance Stable Monitor Continue amlodipine, coreg, amiodarone Fluid overload status Small Pericardial effusion without cardiac tamponade Dialysis per Nephrology EF: 50-55%. Grade I diastolic dysfunction P.afib: Currently in sinus Coumadin on hold Continue Coreg, amiodarone Possible sepsis: On IV vanco and Zosyn Follow up cultures GI Px: On IV Protonix BID Diet: Clear liquid diet, advancing diet as tolerated DVT Px: Heparin SQ Plan to restart Coumadin when appropriate CODE STATUS: Full code DISPOSITION: Plan to transfer to Telemetry PROCEDURES: CTA: 1. Unremarkable CT angiogram of the thoracic aorta. 2. A left-sided chest tube has been placed. There is only a small residual left pleural effusion and the left lung has been reinflated. 3. The right lung is clear noting dependent atelectasis. 4. Cardiomegaly and small pericardial effusion. 5. A trace pneumothorax is seen in the left lung base. 6. An endotracheal tube is new from previous and in appropriate position. 7. There are patchy airspace opacities within the lingula. This may present a mild inflammatory pneumonitis or possibly mild reexpansion edema. 8. Multinodular goiter. 9. Additional findings as above. ECHO: * The left ventricle is normal in size. * There is moderate concentric left ventricular hypertrophy. * Ejection Fraction = 50-55%. * Grade I diastolic dysfunction, (abnormal relaxation pattern). * Small pericardial effusion. * There are no echocardiographic indications of cardiac tamponade. Vital Signs: Date Time Temp Pulse Resp B/P Pulse Ox O2 Delivery O2 Flow Rate FiO2 12/15/16 11:15 98 128/65 12/15/16 11:00 105 133/71 12/15/16 10:45 100 125/76 12/15/16 10:30 103 130/76 12/15/16 10:15 100 116/66 12/15/16 10:10 101 111/69 12/15/16 10:00 102 126/74 12/15/16 09:45 101 132/78 12/15/16 09:30 100 133/69 12/15/16 09:15 106 127/68 12/15/16 09:00 106 118/64 12/15/16 08:45 102 160/86 12/15/16 08:35 97 150/72 12/15/16 08:25 37.1 95 143/91 12/15/16 08:00 Nasal Cannula 2.0 12/15/16 08:00 36.9 98 18 138/75 93 Nasal Cannula 2.0 12/15/16 07:00 91 20 159/80 94 Nasal Cannula 2.0 12/15/16 05:00 86 16 147/71 96 12/15/16 04:00 100 Nasal Cannula 4.0 12/15/16 04:00 36.9 96 24 161/85 99 Nasal Cannula 4.0 12/15/16 02:00 85 12 149/69 96 12/15/16 00:01 82 10 145/71 100 Nasal Cannula 4.0 12/14/16 23:59 100 Nasal Cannula 4.0 12/14/16 23:00 79 14 140/66 100 Nasal Cannula 4.0 12/14/16 22:00 83 16 133/64 100 Nasal Cannula 4.0 12/14/16 20:00 100 Nasal Cannula 12/14/16 20:00 36.5 87 16 151/70 100 Nasal Cannula 4.0 12/14/16 18:00 84 18 144/70 99 Nasal Cannula 4.0 12/14/16 16:40 35 12/14/16 16:00 36.5 84 16 136/76 100 Mechanical Ventilator 35 12/14/16 16:00 35 12/14/16 16:00 100 Mechanical Ventilator 35 12/14/16 14:00 88 10 126/73 100 Mechanical Ventilator 35 12/14/16 13:43 35 12/14/16 13:15 36.4 93 103/61 12/14/16 13:00 36.4 92 17 118/67 100 Mechanical Ventilator 12/14/16 12:45 93 18 103/61 99 Mechanical Ventilator 12/14/16 12:30 94 21 108/64 98 Mechanical Ventilator 12/14/16 12:30 94 108/64 12/14/16 12:15 94 98/61 12/14/16 12:15 95 15 98/61 99 Mechanical Ventilator 12/14/16 12:00 96 95/63 12/14/16 12:00 99 Mechanical Ventilator 12/14/16 12:00 36.4 96 20 95/63 98 Mechanical Ventilator 50 12/14/16 12:00 96 20 95/63 98 12/14/16 11:55 50 12/14/16 11:45 98 115/69 12/14/16 11:30 94 113/71 Lab Results: Results Past 24 Hours Test 12/14/16 12:55 12/14/16 13:35 12/14/16 14:15 12/14/16 14:19 Range/Units Peritoneal Fluid Color PINK Peritoneal Fluid Appearance CLEAR Peritoneal Fluid WBC 64 0-300 /uL Peritoneal Fluid RBC < 3000 /uL Peritoneal Fld Mononuclear WBCs (%) 54.7 % Peritoneal Fld Polynuclear WBCs (%) 45.3 % Hemoglobin 7.8 14.0-18.0 g/dL Hematocrit 23.3 42-52 % Pleural Fluid Source LEFT LUNG Pleural Fluid Color RED Pleural Fluid Appearance BLOODY Pleural Fluid WBC 6037 /uL Pleural Fluid RBC 689442 /uL Pleural Fluid Polynuclear WBCs % 81.4 % Pleural Fluid Mononuclear WBCs % 18.6 % Pleural Fluid Total Protein 4.0 g/dl Pleural Fluid Albumin 1.9 g/dl Pleural Fluid LDH 518 IU Pleural Fluid Glucose 104 mg/dl Pleural Fluid Amylase 57 U/L Pleural Fluid Triglycerides 54 mg/dl Total Creatine Kinase 29 39-308 U/L Creatine Kinase MB 1.2 0.5-3.6 ng/ml Creatine Kinase MB Ratio 4.1 0-3.0 Troponin I 0.016 0-0.045 ng/ml Test 12/14/16 15:42 12/14/16 18:15 12/14/16 20:31 12/15/16 00:44 Range/Units Bedside Glucose 103 70-99 mg/dl Hemoglobin 7.2 7.1 14.0-18.0 g/dL Hematocrit 21.1 21.0 42-52 % Sodium Level 139 136-145 mmol/L Potassium Level 4.5 3.5-5.1 mmol/L Chloride Level 100 98-107 mmol/L Carbon Dioxide Level 27 21-32 mmol/L Anion Gap 12.0 3-11 mmol/L Blood Urea Nitrogen 56 7-18 mg/dl Creatinine 7.90 0.60-1.40 mg/dl Est Creatinine Clear Calc Drug Dose 11.3 ml/min Estimated GFR () 7.7 Estimated GFR (Non- 6.6 BUN/Creatinine Ratio 7.1 10-20 Random Glucose 95 70-99 mg/dl Calcium Level 7.6 8.5-10.1 mg/dl Random Vancomycin Level 16.0 mcg/ml Total Creatine Kinase 29 39-308 U/L Creatine Kinase MB 1.5 0.5-3.6 ng/ml Creatine Kinase MB Ratio 5.2 0-3.0 Troponin I 0.022 0-0.045 ng/ml Test 12/15/16 06:25 Range/Units White Blood Count 9.78 4.8-10.8 K/uL Red Blood Count 2.62 4.7-6.1 M/uL Hemoglobin 7.5 14.0-18.0 g/dL Hematocrit 22.5 42-52 % Mean Corpuscular Volume 85.9 80-100 fL Mean Corpuscular Hemoglobin 28.6 25-34 pg Mean Corpuscular Hemoglobin Concent 33.3 32-36 g/dl Platelet Count 171 130-400 K/uL Mean Platelet Volume 8.8 7.4-10.4 fL Neutrophils (%) (Auto) 79.1 % Lymphocytes (%) (Auto) 7.3 % Monocytes (%) (Auto) 11.6 % Eosinophils (%) (Auto) 1.5 % Basophils (%) (Auto) 0.1 % Neutrophils # (Auto) 7.74 1.4-6.5 K/uL Lymphocytes # (Auto) 0.71 1.2-3.4 K/uL Monocytes # (Auto) 1.13 0.11-0.59 K/uL Eosinophils # (Auto) 0.15 0-0.5 K/uL Basophils # (Auto) 0.01 0-0.2 K/uL RDW Standard Deviation 65.8 36.4-46.3 fL RDW Coefficient of Variation 21.6 11.5-14.5 % Immature Granulocyte % (Auto) 0.4 % Immature Granulocyte # (Auto) 0.04 0.00-0.02 K/uL Polychromasia 1+ Anisocytosis PRESENT Prothrombin Time 10.9 9.0-12.0 SECONDS Prothromb Time International Ratio 1.0 0.9-1.1 Activated Partial Thromboplast Time 26.0 21.0-31.0 SECONDS Partial Thromboplastin Ratio 1.0 Sodium Level 136 136-145 mmol/L Potassium Level 5.0 3.5-5.1 mmol/L Chloride Level 99 98-107 mmol/L Carbon Dioxide Level 26 21-32 mmol/L Anion Gap 11.0 3-11 mmol/L Blood Urea Nitrogen 61 7-18 mg/dl Creatinine 9.10 0.60-1.40 mg/dl Est Creatinine Clear Calc Drug Dose 9.6 ml/min Estimated GFR () 6.5 Estimated GFR (Non- 5.6 BUN/Creatinine Ratio 6.7 10-20 Random Glucose 92 70-99 mg/dl Calcium Level 7.5 8.5-10.1 mg/dl Phosphorus Level 7.6 2.5-4.9 mg/dl Magnesium Level 2.0 1.8-2.4 mg/dl Total Bilirubin 0.5 0.2-1 mg/dl Direct Bilirubin < 0.1 0-0.2 mg/dl Aspartate Amino Transf (AST/SGOT) 24 15-37 U/L Alanine Aminotransferase (ALT/SGPT) 49 12-78 U/L Alkaline Phosphatase 40 45-117 U/L Total Protein 4.8 6.4-8.2 gm/dl Albumin 2.1 3.4-5.0 gm/dl Lipase 75 73-393 U/L
[2016-12-15 12:59] LABS: HEMATOCRIT 22.3 % (42-52)
[2016-12-15] MEDS ORDERED: OXYCODONE/ACETAMINOPHEN 5-325 TAB PO PRN (13:15)
[2016-12-15] MEDS ORDERED: MoRPHine SULFATE 2 MG/ML CARP IV PRN (13:15)
--- NOTE | 2016-12-15 13:32 | Gastroenterology Progress Note ---
Progress Note Date of Service: Dec 15, 2016 Subjective Pt evaluation today including: conversation w/ patient, physical exam, chart review, lab review, review of studies, review of inpatient medication list Pt reports breathing is improved, currently on 4L NC. L chest tube output was 4L yesterday, this AM 50ml. He is c/o L sided back/chest pain. He denies any abd pain, n/v. Tolerated CL diet this am. No BMs overnight. Review of Systems Constitutional: No chills, No fever Respiratory: + shortness of breath (improved), No cough Cardiac: No chest pain, No edema Abdomen: No diarrhea, No nausea, No pain, No vomiting Medications Current Inpatient Medications Medications (Trade) Dose Ordered Sig/Aleksandra Route Start Time Stop Time Status Last Admin Dose Admin Vancomycin HCl (Consult) 1 ea UD PRN N/A 12/14/16 07:15 01/13/17 07:14 Piperacillin Sod/ Tazobactam Sod 1 ea 1 ea UD PRN N/A 12/14/16 07:15 01/13/17 07:14 Piperacillin Sod/ Tazobactam Sod/ Dextrose (Zosyn Iv/D5 100ml) 120 ml @ 30 mls/hr Q12H IV 12/14/16 16:00 12/21/16 15:59 12/15/16 03:46 30 MLS/HR Ioversol 125 ml 125 ml UD PRN IV 12/14/16 10:30 12/18/16 10:29 Epoetin Carlos Alberto/ Syringe (Procrit Inj/ Syringe) 0.6 ml @ 1 mls/min TODAY@0600 IV. 12/15/16 06:00 12/15/16 18:00 Amlodipine Besylate (Norvasc Tab) 5 mg QAM PO 12/15/16 10:00 01/14/17 09:59 Amiodarone HCl (Cordarone Tab) 200 mg QAM PO 12/15/16 10:00 01/14/17 09:59 Carvedilol (Coreg Tab) 12.5 mg BID PO 12/15/16 10:00 01/14/17 09:59 Heparin Sodium (Porcine) 5000 unit 5,000 unit Q8H SQ 12/15/16 14:00 01/14/17 13:59 Pantoprazole Sodium/Syringe (Protonix Inj/ Syringe) 10 ml @ 5 mls/min DAILY@ IV 12/15/16 09:00 01/14/17 08:59 12/15/16 09:56 5 MLS/MIN Oxycodone/ Acetaminophen (Percocet 5-325mg Tab) 1 tab Q8H PRN PO 12/15/16 13:15 12/29/16 13:14 UNV Morphine Sulfate (MoRPHine SULFATE INJ) 1 mg Q4H PRN IM 12/15/16 13:15 12/29/16 13:14 UNV Objective Vital Signs Date Time Temp Pulse Resp B/P Pulse Ox O2 Delivery O2 Flow Rate FiO2 12/15/16 12:00 Nasal Cannula 2.0 12/15/16 12:00 100 147/70 12/15/16 11:45 102 139/72 12/15/16 11:30 100 129/71 12/15/16 11:15 98 128/65 12/15/16 11:00 105 133/71 12/15/16 10:45 100 125/76 12/15/16 10:30 103 130/76 12/15/16 10:15 100 116/66 12/15/16 10:10 101 111/69 12/15/16 10:00 102 126/74 12/15/16 09:45 101 132/78 12/15/16 09:30 100 133/69 12/15/16 09:15 106 127/68 12/15/16 09:00 106 118/64 12/15/16 08:45 102 160/86 12/15/16 08:35 97 150/72 12/15/16 08:25 37.1 95 143/91 12/15/16 08:00 Nasal Cannula 2.0 12/15/16 08:00 36.9 98 18 138/75 93 Nasal Cannula 2.0 12/15/16 07:00 91 20 159/80 94 Nasal Cannula 2.0 12/15/16 05:00 86 16 147/71 96 12/15/16 04:00 100 Nasal Cannula 4.0 12/15/16 04:00 36.9 96 24 161/85 99 Nasal Cannula 4.0 12/15/16 02:00 85 12 149/69 96 12/15/16 00:01 82 10 145/71 100 Nasal Cannula 4.0 12/14/16 23:59 100 Nasal Cannula 4.0 12/14/16 23:00 79 14 140/66 100 Nasal Cannula 4.0 12/14/16 22:00 83 16 133/64 100 Nasal Cannula 4.0 12/14/16 20:00 100 Nasal Cannula 12/14/16 20:00 36.5 87 16 151/70 100 Nasal Cannula 4.0 12/14/16 18:00 84 18 144/70 99 Nasal Cannula 4.0 12/14/16 16:40 35 12/14/16 16:00 36.5 84 16 136/76 100 Mechanical Ventilator 35 12/14/16 16:00 35 12/14/16 16:00 100 Mechanical Ventilator 35 12/14/16 14:00 88 10 126/73 100 Mechanical Ventilator 35 12/14/16 13:43 35 Physical Exam General Appearance: WD/WN, no apparent distress Eyes: normal inspection, PERRL, EOMI Neck: supple, no JVD, trachea midline Respiratory/Chest: no respiratory distress, no accessory muscle use, + decreased breath sounds Cardiovascular: regular rate, rhythm, no gallop, no murmur Abdomen: normal bowel sounds, non tender, soft Extremities: normal inspection, no pedal edema, no calf tenderness Neurologic/Psych: alert, normal mood/affect, oriented x 3 Skin: normal color, no jaundice, no rash Laboratory Results Last 24 Hours Test 12/14/16 13:35 12/14/16 14:15 12/14/16 14:19 12/14/16 15:42 Hemoglobin 7.8 g/dL Hematocrit 23.3 % Pleural Fluid Source LEFT LUNG Pleural Fluid Color RED Pleural Fluid Appearance BLOODY Pleural Fluid WBC 6037 /uL Pleural Fluid RBC 870447 /uL Pleural Fluid Polynuclear WBCs % 81.4 % Pleural Fluid Mononuclear WBCs % 18.6 % Pleural Fluid Total Protein 4.0 g/dl Pleural Fluid Albumin 1.9 g/dl Pleural Fluid LDH 518 IU Pleural Fluid Glucose 104 mg/dl Pleural Fluid Amylase 57 U/L Pleural Fluid Triglycerides 54 mg/dl Total Creatine Kinase 29 U/L Creatine Kinase MB 1.2 ng/ml Creatine Kinase MB Ratio 4.1 Troponin I 0.016 ng/ml Bedside Glucose 103 mg/dl Test 12/14/16 18:15 12/14/16 20:31 12/15/16 00:44 12/15/16 06:25 Hemoglobin 7.2 g/dL 7.1 g/dL 7.5 g/dL Hematocrit 21.1 % 21.0 % 22.5 % Sodium Level 139 mmol/L 136 mmol/L Potassium Level 4.5 mmol/L 5.0 mmol/L Chloride Level 100 mmol/L 99 mmol/L Carbon Dioxide Level 27 mmol/L 26 mmol/L Anion Gap 12.0 mmol/L 11.0 mmol/L Blood Urea Nitrogen 56 mg/dl 61 mg/dl Creatinine 7.90 mg/dl 9.10 mg/dl Est Creatinine Clear Calc Drug Dose 11.3 ml/min 9.6 ml/min Estimated GFR () 7.7 6.5 Estimated GFR (Non- 6.6 5.6 BUN/Creatinine Ratio 7.1 6.7 Random Glucose 95 mg/dl 92 mg/dl Calcium Level 7.6 mg/dl 7.5 mg/dl Random Vancomycin Level 16.0 mcg/ml Total Creatine Kinase 29 U/L Creatine Kinase MB 1.5 ng/ml Creatine Kinase MB Ratio 5.2 Troponin I 0.022 ng/ml White Blood Count 9.78 K/uL Red Blood Count 2.62 M/uL Mean Corpuscular Volume 85.9 fL Mean Corpuscular Hemoglobin 28.6 pg Mean Corpuscular Hemoglobin Concent 33.3 g/dl Platelet Count 171 K/uL Mean Platelet Volume 8.8 fL Neutrophils (%) (Auto) 79.1 % Lymphocytes (%) (Auto) 7.3 % Monocytes (%) (Auto) 11.6 % Eosinophils (%) (Auto) 1.5 % Basophils (%) (Auto) 0.1 % Neutrophils # (Auto) 7.74 K/uL Lymphocytes # (Auto) 0.71 K/uL Monocytes # (Auto) 1.13 K/uL Eosinophils # (Auto) 0.15 K/uL Basophils # (Auto) 0.01 K/uL RDW Standard Deviation 65.8 fL RDW Coefficient of Variation 21.6 % Immature Granulocyte % (Auto) 0.4 % Immature Granulocyte # (Auto) 0.04 K/uL Polychromasia 1+ Anisocytosis PRESENT Prothrombin Time 10.9 SECONDS Prothromb Time International Ratio 1.0 Activated Partial Thromboplast Time 26.0 SECONDS Partial Thromboplastin Ratio 1.0 Phosphorus Level 7.6 mg/dl Magnesium Level 2.0 mg/dl Total Bilirubin 0.5 mg/dl Direct Bilirubin < 0.1 mg/dl Aspartate Amino Transf (AST/SGOT) 24 U/L Alanine Aminotransferase (ALT/SGPT) 49 U/L Alkaline Phosphatase 40 U/L Total Protein 4.8 gm/dl Albumin 2.1 gm/dl Lipase 75 U/L Test 12/15/16 12:51 Hemoglobin 7.5 g/dL Hematocrit 22.3 % Assessment and Plan Patient is a 61 year old male w/ ESRD, AFIB on Coumadin admitted with large left pleural effusion (hemothorax 4L output from chest tube), hyperkalemia, and acute on chronic anemia. INR was supratherapuetic on admission >8, now 1. GI was consulted to rule out upper GI bleed. He had a blood tinged emesis when admitted. He today states that he's been taking lots of pain medications prior to admission which included his narcotics, Ibuprofen, ASA. No more s/s of GI bleeding, H/H improved from 6 to 7 w 3U PRBC today (2 of them leukocyte reduced) . - May change PPI gtt to IV BID form - Advance diet as tolerated - Monitor H/H and transfuse prn - No endoscopy plans at this time; will sign off; call if new questions or concerns arise. I have seen, examined and agree with plan as above -no evidenced GI bleeding -Continued care per pulmonary
[2016-12-15] MEDS: AMIODARONE 200 MG TAB PO SCH (14:23)
[2016-12-15] MEDS: EPOETIN ALFA INJ 12,000 UNITS in SYRINGE 0 ML IV. SCH ×2 (14:24→15:02)
[2016-12-15] MEDS: HEPARIN SOD 5000 UNIT/0.5 ML CARP SQ SCH ×2 (14:25→20:42)
--- NOTE | 2016-12-15 16:41 | SURGERY PROGRESS NOTE ---
DATE: 12/15/2016 Mr. Grullon was seen today. He is now extubated. He looks much better. I had a long discussion with him. His hemoglobin is relatively stable at 7.2 yesterday evening and 7.5 this morning. His vital signs have been stable. He is on 2 liters 95% saturations. Blood pressure has been stable. He really looks no worse for the wear considering everything he went through. He still has some loculated blood in his chest, but it is much less. He also has some atelectasis and needs to start moving. His computer tomographic angiogram yesterday was reviewed. He does not have evidence of dissection; however, he has a probable clot in the medial mediastinum apex. It still is not clear to me why he bled where he bled from but I wonder if this may well be the area of concern. At this rate I would not do anything different. I would continue the TPA as his hemoglobin has been stable. His lungs are much improved, although he still has some loculated fluid. I do not think I would do anything at this point.
[2016-12-15] MEDS: CARVEDILOL 12.5 MG TAB PO SCH ×3 (16:45→21:00)
[2016-12-15 19:25] LABS: HEMATOCRIT 26.8 % (42-52)
[2016-12-15] MEDS: AMLODIPINE BESYLATE 5 MG TAB PO SCH ×2 (20:41→21:00)
[2016-12-15] MEDS ORDERED: ALTEPLASE, RECOMBINANT 1 MG/ML 2 ML VIAL IV ONE (21:00)
[2016-12-15] MEDS ORDERED: DORNASE ALFA 2.5MG 5 ML in SYRINGE 25 ML IPL SCH (21:00)
[2016-12-15] MEDS ORDERED: ACETAMINOPHEN 500 MG TAB PO PRN (23:45)
[2016-12-15] MEDS ORDERED: ESZOPICLONE 1 MG TAB PO PRN (23:45)
[2016-12-16] VITALS (30 sets, daily range): BP systolic 121–191; BP diastolic 50–93; PULSE 76–102; TEMP 36.6–37.5; O2SAT 91–98
[2016-12-16 01:02] LABS: HEMATOCRIT 21.7 % (42-52)
[2016-12-16] MEDS: PIPERACILL/TAZOBAC IV 4.5 GM in DEXTROSE 5% 100ML IV SCH ×2 (04:25→18:45)
[2016-12-16] MEDS ORDERED: EPOETIN ALFA INJ 12,000 UNITS in SYRINGE 0 ML IV. SCH (06:00)
[2016-12-16] MEDS: HEPARIN SOD 5000 UNIT/0.5 ML CARP SQ SCH ×3 (06:00→20:03)
[2016-12-16 06:19] LABS: INR 1.1 (0.9-1.1); PARTIAL THROMBOPLASTIN RATIO 1.1
[2016-12-16 06:20] LABS: MEAN CELL VOLUME 87.9 fL (80-100); MEAN CORPUSCULAR HEMOGLOBIN 28.9 pg (25-34); MEAN CORPUSCULAR HGB CONC 32.9 g/dl (32-36); PLATELET COUNT 190 K/uL (130-400); RED BLOOD COUNT 2.39 M/uL (4.7-6.1); WHITE BLOOD COUNT 10.79 K/uL (4.8-10.8)
[2016-12-16 06:29] LABS: ANISOCYTOSIS PRESENT; BASO % 0.1 %; BASO ABS # 0.01 K/uL (0-0.2); COMPLETE YES; EOS % 1.7 %; IG% 0.6 %; LYMPH % 11.8 %; LYMPH ABS # 1.27 K/uL (1.2-3.4); MONO % 9.8 %; POLYCHROMASIA 1+
[2016-12-16 07:52] LABS: ALKALINE PHOSPHATASE 44 U/L (45-117); ALT/SGPT 39 U/L (12-78); AST/SGOT 16 U/L (15-37); BLOOD UREA NITROGEN 33 mg/dl (7-18); BUN/CREATININE RATIO 4.7 (10-20); CALCIUM 7.2 mg/dl (8.5-10.1); CARBON DIOXIDE 29 mmol/L (21-32); CHLORIDE 103 mmol/L (98-107); GLUCOSE 89 mg/dl (70-99); PHOSPHORUS 6.1 mg/dl (2.5-4.9); SODIUM 140 mmol/L (136-145)
[2016-12-16] MEDS ORDERED: EPOETIN ALFA 10,000 UNITS/ML VIAL IV. ONE (08:00)
[2016-12-16] MEDS ORDERED: VANCOMYCIN INJ 750 MG in SODIUM CHLORIDE 0.9% 250ML 250 ML IV ONE (08:00)
--- NOTE | 2016-12-16 08:43 | DIAGNOSTIC IMAGING REPORT ---
CHEST ONE VIEW PORTABLE HISTORY: PLEURAL EFFUSION COMPARISON: Chest 12/15/2016 FINDINGS: The right lung remains clear. No definite pneumothorax. Left-sided chest tube terminates in the left midlung zone. Small partially loculated left pleural effusion and left mid to lower lung zone densities remain unchanged. The heart remains mildly enlarged. Right jugular catheter terminates in the SVC. IMPRESSION: Small partially loculated left pleural effusion and left basilar densities remain unchanged. The left-sided chest tube terminates in the left midlung zone. No definite pneumothorax. Electronically signed by: Lei Monique M.D. 12/16/2016 8:41 AM Dictated Date/Time: 12/16/2016 8:39 AM
--- NOTE | 2016-12-16 08:56 | Progress Note ---
Internal Med Progress Note Date of Service: Dec 16, 2016. Provider Documentation: SUBJECTIVE: Patient is seen and examined at bedside. Reports having mild pain at the chest tube site. Planned for HD today. Denies any chest pain, SOB, cough, dizziness, nausea, abd pain. Hb:6.9 today, planned for 1 Unit PRBC transfusion today. OBJECTIVE: Vital Signs-as noted below Physical Exam: General Appearance:Moderately built and nourished, no apparent distress Head: normocephalic, Atraumatic Eyes: normal inspection, EOMI, PERRLA Neck: supple, Trachea midline Respiratory/Chest: Left sided crackles, + chest tube in place. No accessory muscle use Cardiovascular: S1, S2, + tachycardia, No murmur Abdomen/GI:Soft, Non tender, Bowel sounds present, No guarding/rigidity/ organomegaly Extremities/Musculoskelatal:normal inspection, + pedal edema, L >R Neurologic/Psych:AAOX3, grossly no focal neurological deficits Skin: normal color, warm Lab data as noted below. ASSESSMENT & PLAN: Back pain: Secondary to left hemorrhagic loculated pleural effusion with mediastinal shift S/P Left chest tube on 12/14/2016 CTA: Negative for aortic dissection Blood culture/Plural fluid culture: Negative to date Appreciate [employer] Sales Consultant/CT surgery help DNAse and tPAse per CT surgery Pleural fluid: Gram stain - Moderate WBCs, No organisms. MRSA screen Negative Continue IV antibiotics for now Probable clot in the medial mediastinum apex Monitor Hb: 6.9 today Planned for 1 unit PRBC today Metabolic Encephalopathy: Resolved Could be secondary to Uremia, acute illness CT head:No acute pathology On dialysis per Nephrology Hyperkalemia: H/O ESRD ON HD and planned for transitioned to PD S/P Calcium, Bicarb, Insulin, Glucose while in ED Resolved Anemia: H/O GI bleed, ESRD Likely multifactorial: Left hemothorax, ESRD On Protonix IV BID S/P 3 units PRBCs Monitor H&H Transfuse PRN Appreciate GI input No plan for endoscopy Hyper coagulopathy: Resolved On coumadin at home for P.afib S/P Vit K and Kcentra Coumadin on hold:active bleed Monitor INR:1.1 today Hypertension: H/O non compliance Stable Monitor Continue amlodipine, coreg, amiodarone Fluid overload status Small Pericardial effusion without cardiac tamponade Dialysis per Nephrology EF: 50-55%. Grade I diastolic dysfunction P.afib: Currently in sinus Coumadin on hold Continue Coreg, amiodarone Possible sepsis: Less likely On IV vanco and Zosyn Cultures: negative to date GI Px: On IV Protonix BID Diet: Clear liquid diet, advancing diet as tolerated DVT Px: Heparin SQ: hold for now Plan to restart Coumadin when appropriate CODE STATUS: Full code DISPOSITION: Continue monitoring in Telemetry PROCEDURES: CTA: 1. Unremarkable CT angiogram of the thoracic aorta. 2. A left-sided chest tube has been placed. There is only a small residual left pleural effusion and the left lung has been reinflated. 3. The right lung is clear noting dependent atelectasis. 4. Cardiomegaly and small pericardial effusion. 5. A trace pneumothorax is seen in the left lung base. 6. An endotracheal tube is new from previous and in appropriate position. 7. There are patchy airspace opacities within the lingula. This may present a mild inflammatory pneumonitis or possibly mild reexpansion edema. 8. Multinodular goiter. 9. Additional findings as above. ECHO: * The left ventricle is normal in size. * There is moderate concentric left ventricular hypertrophy. * Ejection Fraction = 50-55%. * Grade I diastolic dysfunction, (abnormal relaxation pattern). * Small pericardial effusion. * There are no echocardiographic indications of cardiac tamponade. Vital Signs: Date Time Temp Pulse Resp B/P Pulse Ox O2 Delivery O2 Flow Rate FiO2 12/16/16 04:37 37.0 96 14 159/80 97 Nasal Cannula 2.0 12/16/16 04:00 Room Air 12/16/16 00:23 95 21 150/72 94 Nasal Cannula 2.0 12/16/16 00:01 Room Air 12/16/16 00:01 37.5 102 24 135/68 95 Room Air 12/15/16 20:48 110 16 126/76 96 Room Air 12/15/16 20:23 111 18 147/82 98 Room Air 12/15/16 20:20 37.3 113 18 147/82 96 Room Air 12/15/16 20:00 Room Air 12/15/16 16:00 36.9 115 20 126/76 97 Nasal Cannula 2.0 12/15/16 16:00 Nasal Cannula 2.0 12/15/16 14:07 114 17 114/68 95 Nasal Cannula 2.0 12/15/16 13:28 109 21 104/66 92 Nasal Cannula 2.0 12/15/16 12:20 37.2 104 129/66 12/15/16 12:00 Nasal Cannula 2.0 12/15/16 12:00 100 147/70 12/15/16 11:45 102 139/72 12/15/16 11:30 100 129/71 12/15/16 11:15 98 128/65 12/15/16 11:00 105 133/71 12/15/16 10:45 100 125/76 12/15/16 10:30 103 130/76 12/15/16 10:15 100 116/66 12/15/16 10:10 101 111/69 12/15/16 10:00 102 126/74 12/15/16 09:45 101 132/78 12/15/16 09:30 100 133/69 12/15/16 09:15 106 127/68 12/15/16 09:00 106 118/64 12/15/16 08:45 102 160/86 12/15/16 08:35 97 150/72 Lab Results: Results Past 24 Hours Test 12/15/16 12:51 12/15/16 18:53 12/16/16 00:48 12/16/16 05:15 Range/Units Hemoglobin 7.5 8.7 7.3 6.9 14.0-18.0 g/dL Hematocrit 22.3 26.8 21.7 21.0 42-52 % White Blood Count 10.79 4.8-10.8 K/uL Red Blood Count 2.39 4.7-6.1 M/uL Mean Corpuscular Volume 87.9 80-100 fL Mean Corpuscular Hemoglobin 28.9 25-34 pg Mean Corpuscular Hemoglobin Concent 32.9 32-36 g/dl Platelet Count 190 130-400 K/uL Mean Platelet Volume 9.0 7.4-10.4 fL Neutrophils (%) (Auto) 76.0 % Lymphocytes (%) (Auto) 11.8 % Monocytes (%) (Auto) 9.8 % Eosinophils (%) (Auto) 1.7 % Basophils (%) (Auto) 0.1 % Neutrophils # (Auto) 8.21 1.4-6.5 K/uL Lymphocytes # (Auto) 1.27 1.2-3.4 K/uL Monocytes # (Auto) 1.06 0.11-0.59 K/uL Eosinophils # (Auto) 0.18 0-0.5 K/uL Basophils # (Auto) 0.01 0-0.2 K/uL RDW Standard Deviation 66.7 36.4-46.3 fL RDW Coefficient of Variation 21.1 11.5-14.5 % Immature Granulocyte % (Auto) 0.6 % Immature Granulocyte # (Auto) 0.06 0.00-0.02 K/uL Polychromasia 1+ Anisocytosis PRESENT Prothrombin Time 12.0 9.0-12.0 SECONDS Prothromb Time International Ratio 1.1 0.9-1.1 Activated Partial Thromboplast Time 29.6 21.0-31.0 SECONDS Partial Thromboplastin Ratio 1.1 Sodium Level 140 136-145 mmol/L Potassium Level 4.0 3.5-5.1 mmol/L Chloride Level 103 98-107 mmol/L Carbon Dioxide Level 29 21-32 mmol/L Anion Gap 8.0 3-11 mmol/L Blood Urea Nitrogen 33 7-18 mg/dl Creatinine 7.00 0.60-1.40 mg/dl Est Creatinine Clear Calc Drug Dose 12.3 ml/min Estimated GFR () 8.9 Estimated GFR (Non- 7.7 BUN/Creatinine Ratio 4.7 10-20 Random Glucose 89 70-99 mg/dl Calcium Level 7.2 8.5-10.1 mg/dl Phosphorus Level 6.1 2.5-4.9 mg/dl Magnesium Level 2.0 1.8-2.4 mg/dl Total Bilirubin 0.3 0.2-1 mg/dl Direct Bilirubin < 0.1 0-0.2 mg/dl Aspartate Amino Transf (AST/SGOT) 16 15-37 U/L Alanine Aminotransferase (ALT/SGPT) 39 12-78 U/L Alkaline Phosphatase 44 45-117 U/L Total Protein 4.9 6.4-8.2 gm/dl Albumin 1.9 3.4-5.0 gm/dl Lipase 109 73-393 U/L Random Vancomycin Level 12.4 mcg/ml
[2016-12-16] MEDS: AMLODIPINE BESYLATE 5 MG TAB PO SCH (09:00)
[2016-12-16] MEDS: CARVEDILOL 12.5 MG TAB PO SCH ×2 (09:00→20:02)
[2016-12-16] MEDS: PANTOprazole INJ 40 MG in SYRINGE 0 ML IV SCH ×2 (09:05→20:02)
--- NOTE | 2016-12-16 10:25 | SURGERY PROGRESS NOTE ---
DATE: 12/16/2016 DATE: 12/16/2016. I reviewed Mr. Grullon's x-ray today. It appears to me that this hemothorax is worse. He also dropped his hemoglobin with TPA instillation intrapleurally. He drained 420 mL over last 24 hours. I have a couple of concerns about Mr. Grullon. One is where he bled from. The hematoma along his superior mediastinum is concerning to me. I am also concerned that we are not draining this well. At this point, I think a thoracoscopy with evacuation of the hemothorax and to address any bleeding concerns is warranted. He understands. He would like to proceed. We are going to do that later today. We had a long discussion about risk and benefits. GENET
--- NOTE | 2016-12-16 10:32 | Nephrology Progress Note ---
Nephrology Progress Note Date of Service: Dec 16, 2016. Subjective chest tube output remains greater than expected and pulm considering possible decortication or VATS; anuric; extbuated now on 2L; no c/o except chest tube pain; remains fixated on starting PD, ambulatory Objective Date Time Temp Pulse Resp B/P Pulse Ox O2 Delivery O2 Flow Rate FiO2 12/16/16 08:00 37.1 86 16 142/78 97 Nasal Cannula 2.0 12/16/16 08:00 Room Air 12/16/16 04:37 37.0 96 14 159/80 97 Nasal Cannula 2.0 12/16/16 04:00 Room Air 12/16/16 00:23 95 21 150/72 94 Nasal Cannula 2.0 12/16/16 00:01 Room Air 12/16/16 00:01 37.5 102 24 135/68 95 Room Air 12/15/16 20:48 110 16 126/76 96 Room Air 12/15/16 20:23 111 18 147/82 98 Room Air 12/15/16 20:20 37.3 113 18 147/82 96 Room Air 12/15/16 20:00 Room Air 12/15/16 16:00 36.9 115 20 126/76 97 Nasal Cannula 2.0 12/15/16 16:00 Nasal Cannula 2.0 12/15/16 14:07 114 17 114/68 95 Nasal Cannula 2.0 12/15/16 13:28 109 21 104/66 92 Nasal Cannula 2.0 12/15/16 12:20 37.2 104 129/66 12/15/16 12:00 Nasal Cannula 2.0 12/15/16 12:00 100 147/70 12/15/16 11:45 102 139/72 12/15/16 11:30 100 129/71 12/15/16 11:15 98 128/65 12/15/16 11:00 105 133/71 12/15/16 10:45 100 125/76 12/15/16 10:30 103 130/76 Physical Exam: General Appearance: WD/WN, + oriented x 3 on 02NC ENT: eomi, dry mm Neck: supple Respiratory/Chest: + decreased breath sounds and L chest crackles, + pertinent finding (chest tube L w/ bloody output); TDC R chest Cardiovascular: + tachycardia, + pertinent finding (trace ble EDEMA) Abdomen: non tender, soft, + pertinent finding (PD catheter present; no lincoln) Extremities: + pedal edema, + swelling Neurologic/Psych: gotti, fluent though perseverant speech Skin: no rash, + pallor Current Inpatient Medications Medications (Trade) Dose Ordered Sig/Aleksandra Route Start Time Stop Time Status Last Admin Dose Admin Vancomycin HCl (Consult) 1 ea UD PRN N/A 12/14/16 07:15 01/13/17 07:14 Piperacillin Sod/ Tazobactam Sod 1 ea 1 ea UD PRN N/A 12/14/16 07:15 01/13/17 07:14 Piperacillin Sod/ Tazobactam Sod/ Dextrose (Zosyn Iv/D5 100ml) 120 ml @ 30 mls/hr Q12H IV 12/14/16 16:00 12/21/16 15:59 12/16/16 04:25 30 MLS/HR Ioversol (Optiray 320) 125 ml UD PRN IV 12/14/16 10:30 12/18/16 10:29 Amlodipine Besylate (Norvasc Tab) 5 mg QAM PO 12/15/16 10:00 01/14/17 09:59 Amiodarone HCl (Cordarone Tab) 200 mg QAM PO 12/15/16 10:00 01/14/17 09:59 12/15/16 14:23 200 MG Carvedilol (Coreg Tab) 12.5 mg BID PO 12/15/16 10:00 01/14/17 09:59 Heparin Sodium (Porcine) 5000 unit 5,000 unit Q8H SQ 12/15/16 14:00 01/14/17 13:59 12/15/16 20:42 5,000 UNIT Pantoprazole Sodium/Syringe (Protonix Inj/ Syringe) 10 ml @ 5 mls/min DAILY@,21 IV 12/15/16 09:00 01/14/17 08:59 12/16/16 09:05 5 MLS/MIN Oxycodone/ Acetaminophen (Percocet 5-325mg Tab) 1 tab Q8H PRN PO 12/15/16 13:15 12/29/16 13:14 12/15/16 14:31 1 TAB Morphine Sulfate (MoRPHine SULFATE INJ) 1 mg Q4H PRN IV 12/15/16 13:15 12/29/16 13:14 Heparin Sodium (Porcine) 1 ea 1 ea TODAY@0800 N/A 12/16/16 08:00 12/16/16 18:00 Epoetin Carlos Alberto/ Syringe (Procrit Inj/ Syringe) 0.6 ml @ 1 mls/min TODAY@0600 IV. 12/16/16 06:00 12/16/16 18:00 Acetaminophen (Tylenol Tab) 500 mg Q8 PRN PO 12/15/16 23:45 01/14/17 23:44 12/15/16 23:56 500 MG Eszopiclone (Lunesta Tab) 1 mg HSZ PRN PO 12/15/16 23:45 01/14/17 23:44 12/15/16 23:56 1 MG Last 24 Hours Test 12/15/16 12:51 12/15/16 18:53 12/16/16 00:48 12/16/16 05:15 Hemoglobin 7.5 g/dL 8.7 g/dL 7.3 g/dL 6.9 g/dL Hematocrit 22.3 % 26.8 % 21.7 % 21.0 % White Blood Count 10.79 K/uL Red Blood Count 2.39 M/uL Mean Corpuscular Volume 87.9 fL Mean Corpuscular Hemoglobin 28.9 pg Mean Corpuscular Hemoglobin Concent 32.9 g/dl Platelet Count 190 K/uL Mean Platelet Volume 9.0 fL Neutrophils (%) (Auto) 76.0 % Lymphocytes (%) (Auto) 11.8 % Monocytes (%) (Auto) 9.8 % Eosinophils (%) (Auto) 1.7 % Basophils (%) (Auto) 0.1 % Neutrophils # (Auto) 8.21 K/uL Lymphocytes # (Auto) 1.27 K/uL Monocytes # (Auto) 1.06 K/uL Eosinophils # (Auto) 0.18 K/uL Basophils # (Auto) 0.01 K/uL RDW Standard Deviation 66.7 fL RDW Coefficient of Variation 21.1 % Immature Granulocyte % (Auto) 0.6 % Immature Granulocyte # (Auto) 0.06 K/uL Polychromasia 1+ Anisocytosis PRESENT Prothrombin Time 12.0 SECONDS Prothromb Time International Ratio 1.1 Activated Partial Thromboplast Time 29.6 SECONDS Partial Thromboplastin Ratio 1.1 Sodium Level 140 mmol/L Potassium Level 4.0 mmol/L Chloride Level 103 mmol/L Carbon Dioxide Level 29 mmol/L Anion Gap 8.0 mmol/L Blood Urea Nitrogen 33 mg/dl Creatinine 7.00 mg/dl Est Creatinine Clear Calc Drug Dose 12.3 ml/min Estimated GFR () 8.9 Estimated GFR (Non- 7.7 BUN/Creatinine Ratio 4.7 Random Glucose 89 mg/dl Calcium Level 7.2 mg/dl Phosphorus Level 6.1 mg/dl Magnesium Level 2.0 mg/dl Total Bilirubin 0.3 mg/dl Direct Bilirubin < 0.1 mg/dl Aspartate Amino Transf (AST/SGOT) 16 U/L Alanine Aminotransferase (ALT/SGPT) 39 U/L Alkaline Phosphatase 44 U/L Total Protein 4.9 gm/dl Albumin 1.9 gm/dl Lipase 109 U/L Random Vancomycin Level 12.4 mcg/ml Assessment & Plan 61 y/o M w/ ESRD, AFib, frequent admissions for hyperkalemia, indwelling PD catheter admitted w/ hyperkalemia, large loculated L pleural effusion which proved to be hemothorax, acute on chronic anemia after presenting w/ N/V, abd pain, L flank pain on 12/14. ESRD -HD today; continue near daily tx as inpt -he is very focused on starting PD >> not at all clear that he is a candidate d/ t anuria and nonadherence to medical recommendations; this will be an ongoing discussion between him and me and dr partt after d/c- -after 2 hospitalizations in the past 6 wks for dialysis-related complications I continue to remind him that he needs to make adequate dialysis (ie, 3 full txs a week of at least 4 hrs and possibly more) a priority after discharge even if he works fewer hours; this is in my opinion a life and issue for him ( also needs to f/u w/ INR levels and other routine care; he is very selective about accessing care) Abd pain on presentation w/ concern for penetrating aortic ulcer or dissection -PD fluid studies negative for peritonitis; though he proudly tells me about contraindicated methods of pulling pd cath out "cleaning it" and reinserting ( partway) >>strongly advised him against this practice Acute on chronic anemia w/ supratherapeutic INR -for pRBC on dialysis < per primary service and critical care; no heparin and will give aggressive epo on hd L hemothorax -HD to improve total dialysis adequacy; further eval per critical care Appreciate consultation; will follow with you. Care coordinated w/ Dr. Stevens
[2016-12-16] MEDS: AMIODARONE 200 MG TAB PO SCH (11:16)
--- NOTE | 2016-12-16 11:38 | Pharmacy Progress Note ---
Pharmacy Antibiotic Prog Note Date of Service Dec 16, 2016. Subjective The patient is currently receiving Vancomycin IV. The patient is currently on day # 3 of Vancomycin IV therapy. Objective Height (Feet): 5 Height (Inches): 9.00 Weight (Kilograms): 90.600 Levels: Item Value Date Time Random Vancomycin Level 12.4 mcg/ml 12/16/16 0515 Lab Results (24hrs): Laboratory Tests Test 12/16/16 05:15 BUN/Creatinine Ratio 4.7 Blood Urea Nitrogen 33 mg/dl Creatinine 7.00 mg/dl White Blood Count 10.79 K/uL Red Blood Count 2.39 M/uL Hemoglobin 6.9 g/dL Hematocrit 21.0 % Mean Corpuscular Volume 87.9 fL Mean Corpuscular Hemoglobin 28.9 pg Mean Corpuscular Hemoglobin Concent 32.9 g/dl Platelet Count 190 K/uL Mean Platelet Volume 9.0 fL Neutrophils (%) (Auto) 76.0 % Lymphocytes (%) (Auto) 11.8 % Monocytes (%) (Auto) 9.8 % Eosinophils (%) (Auto) 1.7 % Basophils (%) (Auto) 0.1 % Neutrophils # (Auto) 8.21 K/uL Lymphocytes # (Auto) 1.27 K/uL Monocytes # (Auto) 1.06 K/uL Eosinophils # (Auto) 0.18 K/uL Basophils # (Auto) 0.01 K/uL Micro Results: Item Value Date Time MRSA DNA Surveillance Screen - Final Complete 12/14/16 1025 Nasal Specimen Negative for MRSA by DNA Probe Blood Culture - Preliminary Resulted 12/14/16 0930 Blood NO GROWTH TO DATE. Blood Culture - Preliminary Resulted 12/14/16 0916 Blood NO GROWTH TO DATE. Gram Stain - Final Resulted 12/14/16 0740 Pleural Fluid (Thoracentesis) Left NO GROWTH TO DATE Recent Pertinent Medications Also on day # 3 of IV Zosyn. Assessment & Plan VANCOMYCIN: * Random level is: slightly Subtherapeutic, for possible sepsis * Re-dose with Vancomycin 750mg IV x1 dose now * Patient is receiving hemodialysis daily during admission. Will continue to follow vanc levels carefully and re-dose when appropriate. * Goal trough level estimate: between 15 - 20 mcg/mL. * Random level has been ordered for: 12/17/16 with am labs * Will re-dose when random level falls within therapeutic range * MRSA nasal swab is negative - consider discontinuation of Vancomycin if being used primarily for coverage of MRSA pneumonia Pharmacy will continue to follow and will adjust dose/frequency as necessary. Thank you
[2016-12-16] MEDS ORDERED: SODIUM CHLORIDE 0.9% PF 50 ML VIAL ONE (15:13)
[2016-12-16 15:19] LABS: HEMATOCRIT 29.2 % (42-52)
[2016-12-16] MEDS ORDERED: MIDAZOLAM HCL 1 MG/ML 2ML VIAL ONE (15:27)
[2016-12-16] MEDS ORDERED: FENTANYL CITRATE INJ 50 MCG/1 ML 2 ML VIAL ONE ×2 (15:27→16:21)
[2016-12-16] MEDS ORDERED: CEFAZOLIN SOD 1 GM VIAL ONE (16:11)
[2016-12-16] MEDS: BUPIVACAINE LIPOSOME 1/3% 266 MG/20 ML VIAL INFIL ONE ×2 (16:28→16:58)
[2016-12-16] MEDS ORDERED: HYDROmorphone INJ 2 MG/ML SYR/VIAL ONE (16:31)
[2016-12-16] MEDS ORDERED: ONDANSETRON INJ 2 MG/ML 2 ML VIAL ONE (16:32)
[2016-12-16] MEDS ORDERED: NEOSTIGMINE METHYLSULFATE 5 MG/5 ML SYR ONE (16:32)
[2016-12-16] MEDS ORDERED: ROCURONIUM BROMIDE 10 MG/ML 5 ML VIAL ONE (16:32)
[2016-12-16] MEDS ORDERED: LIDOCAINE HCL 2% 2 ML VIAL (20MG/ML) ONE (16:32)
[2016-12-16] MEDS ORDERED: PROPOFOL IV EMULSION 10 MG/ML 20 ML VIAL IV ONE (16:32)
[2016-12-16] MEDS ORDERED: GLYCOPYRROLATE INJ 0.2 MG/ML VIAL ONE (16:32)
[2016-12-16] MEDS ORDERED: MIX: 266 MG EXPAREL + 40 ML INJ SALINE INJ ONE (16:57)
[2016-12-16] MEDS ORDERED: PROMETHAZINE HCL INJ 6.25 MG in SODIUM CHLORIDE 0.9% 50ML 50 ML IV PRN (17:00)
[2016-12-16] MEDS ORDERED: FENTANYL CITRATE INJ 50 MCG/1 ML 2 ML VIAL IV PRN (17:00)
[2016-12-16] MEDS ORDERED: SODIUM CHLORIDE 0.9% PF 50 ML VIAL INJ ONE (17:00)
[2016-12-16] MEDS ORDERED: ONDANSETRON INJ 2 MG/ML 2 ML VIAL IV PRN ×2 (17:00→17:30)
[2016-12-16] MEDS ORDERED: ATROPINE SULFATE 0.1 MG/ML 5ML SYR IV PRN (17:00)
[2016-12-16] MEDS ORDERED: EpHEDrine SULFATE INJ 50 MG/ML AMP IV PRN (17:00)
[2016-12-16] MEDS ORDERED: MoRPHine SULFATE 2 MG/ML CARP IV PRN ×2 (17:30→18:00)
[2016-12-16] MEDS ORDERED: OXYCODONE HCL IR 5 MG TAB (IMMEDIATE RELEASE) PO PRN (17:45)
--- NOTE | 2016-12-16 17:58 | Anesthesiology Progress Note ---
Anesthesia Post Op Note Date & Time Dec 16, 2016 at 17:57 Vital Signs Pain Intensity: 0 Vital Signs Past 12 Hours Date Time Temp Pulse Resp B/P Pulse Ox O2 Delivery O2 Flow Rate FiO2 12/16/16 17:50 79 18 107/60 97 Mask 10 12/16/16 17:48 36.4 105 16 106/61 100 Mask 10 12/16/16 14:46 37.0 87 20 165/82 95 Nasal Cannula 2.0 12/16/16 14:46 Room Air 12/16/16 14:14 37.2 88 181/92 12/16/16 14:00 84 169/74 12/16/16 13:45 90 174/85 12/16/16 13:30 85 165/82 12/16/16 13:00 92 174/81 12/16/16 13:00 84 191/79 12/16/16 12:45 87 179/89 12/16/16 12:30 88 168/93 12/16/16 12:24 79 175/88 12/16/16 12:00 86 158/91 12/16/16 11:50 84 148/85 12/16/16 11:45 84 148/85 12/16/16 11:35 84 148/85 12/16/16 11:30 37.1 84 18 148/85 98 2.0 12/16/16 11:30 84 148/85 12/16/16 11:15 92 154/84 12/16/16 11:00 88 148/79 12/16/16 10:45 87 158/89 12/16/16 10:30 82 161/84 12/16/16 10:15 37.2 82 154/87 12/16/16 08:00 37.1 86 16 142/78 97 Nasal Cannula 2.0 12/16/16 08:00 Room Air Notes Mental Status: alert / awake / arousable, participated in evaluation Pt Amnestic to Procedure: Yes Nausea / Vomiting: adequately controlled Pain: adequately controlled Airway Patency, RR, SpO2: stable & adequate BP & HR: stable & adequate Hydration State: stable & adequate Anesthetic Complications: no major complications apparent
--- NOTE | 2016-12-16 18:11 | DIAGNOSTIC IMAGING REPORT ---
CHEST ONE VIEW PORTABLE CLINICAL HISTORY: s/p VATS COMPARISON STUDY: Chest radiograph December 16, 2016 6:57 AM FINDINGS: A left chest tube is in place. Left lung aeration has improved. There is a small residual left pleural effusion. There is a tiny left pneumothorax. There is gas within the left chest wall. A right internal jugular lumen catheter is in place. Cardiomegaly is unchanged. There is no evidence of pulmonary edema. IMPRESSION: Left chest tube in place. Interval improvement in left lung aeration. Small residual left pleural effusion. Trace left pneumothorax. Electronically signed by: David Pena M.D. 12/16/2016 6:09 PM Dictated Date/Time: 12/16/2016 6:07 PM
[2016-12-16] MEDS: ACETAMINOPHEN IV 1,000 MG in EMPTY BAG 0 ML IV SCH ×2 (18:44→19:22)
[2016-12-16] MEDS: METOCLOPRAMIDE HCL INJ 5 MG/ML 2 ML VIAL IV. SCH (18:45)
[2016-12-16] MEDS: DOCUSATE SODIUM 100 MG CAP PO SCH (19:26)
--- NOTE | 2016-12-16 21:39 | OPERATIVE REPORT ---
DATE OF OPERATION: 12/16/2016 PREOPERATIVE DIAGNOSIS: Clotted hemothorax, left chest. POSTOPERATIVE DIAGNOSIS: Same. PROCEDURE: Left thoracoscopy with evacuation of left clotted hemothorax. SURGEON: Dr. Santillan. FILM PROCESS OPERATOR: KAYLA Amaral. SECOND FILM PROCESS OPERATOR: natasha Chaves wrong address clerk 3. ANESTHESIA: General anesthesia with endotracheal intubation. INDICATION FOR PROCEDURE AND FINDINGS: This is a 61-year-old male who became supratherapeutic on Coumadin which had been given to him for his atrial fibrillation and came in hemodynamically unstable. He was found to have a left pleural effusion. A chest tube was inserted and he had a huge hemothorax and drained 4000 mL of blood. We did not drain all this and Dr. Nishant Cannon had been using thrombolytics through the chest tube. I saw him early this morning on 12/16/2016 and he was not better. In fact, I thought his x-ray looked worse. I was concerned about this. Really did not have an etiology. In fact, he was supratherapeutic. He denied trauma. Hemodynamically, he is unstable. I thought that a thoracoscopy to not only evacuate this hemothorax but also to evaluate to make sure there was no further bleeding was a good option. On 12/16/2016, the patient was brought to the operating room and underwent a thoracoscopy without difficulty. Actually, I was not surprised that he had a clotted hemothorax, I evacuated a large amount, especially at the apex along the medial mediastinum. I removed all this blood. There were some loculated areas between the upper lobe and lower lobe posteriorly and along the diaphragm. We suctioned all these out. Pleura was thickened and I did send multiple biopsies and did a limited pleurectomy. I did not find evidence of bleeding anywhere. We irrigated out the chest with warm saline. Did an Exparel block and then placed the chest tube and closed his incisions. He tolerated it well. PROCEDURE IN DETAIL: The patient was brought to the operating room and laid in supine position. General anesthesia induced and endotracheal intubation was performed. The patient was placed in right lateral decubitus position. His left chest was prepped and draped in usual sterile fashion. Three separate thoracoscopy incisions were made. One was at about the 7th interspace below the scapula tip anteriorly, one was at about the 7th interspace anteriorly, and I made about a 3 or 4 cm incision anteriorly and superiorly at about the 4th interspace. With these incisions, we were able to open up and remove this. There was a large amount of clotted hematoma on the apex which I removed. However, I inspected the lung closely, there was no bleeding from the lung at all. I broke up several pockets of fluid which were drained without difficulty. The pleura was thickened and I removed a large portion of it, sending off for biopsy. I grasped it and pushed away with a blunt lung clamp. We removed a fair amount of this and the pleura looked fine underneath it. I simply did not see any bleeding, I closely inspected it. Irrigated out with warm saline, suctioned out, it looked quite good. 266 mg of Exparel mixed in 60 mL total of saline and I injected this from the 2nd to the 11th rib intrathoracically with a long needle. I then placed a 24-Marshallese chest tube from the anterior inferior incision up to the apex and sutured in place with heavy silk suture. We inflated the lung, it inflated nicely. We saw no evidence of an air leak. The chest tube was sutured with heavy silk suture and then 0 Vicryl was used to close the muscle layers of all 3 incisions and 4-0 Monocryl was used in running subcuticular fashion to approximate the wound edges. It should be noted the patient had a chest tube which I removed. We did not close this incision, it had been there for a few days. We placed a nylon suture to loosely approximate this and placed a piece of Acticoat in this to allow for drainage. He tolerated the procedure well and was extubated without difficulty in the room. I attest to the content of the Intraoperative Record and any orders documented therein. Any exceptions are noted below. GENET
[2016-12-17] VITALS (28 sets, daily range): BP systolic 92–162; BP diastolic 55–84; PULSE 75–96; TEMP 36.4–37.9; O2SAT 90–97
[2016-12-17] MEDS: CEFAZOLIN IV 2,000 MG in DEXTROSE 5% 50ML 100 ML IV SCH ×2 (00:28→08:32)
[2016-12-17] MEDS: METOCLOPRAMIDE HCL INJ 5 MG/ML 2 ML VIAL IV. SCH ×2 (02:20→10:00)
[2016-12-17] MEDS: ACETAMINOPHEN IV 1,000 MG in EMPTY BAG 0 ML IV SCH ×3 (02:44→18:04)
[2016-12-17] MEDS: PIPERACILL/TAZOBAC IV 4.5 GM in DEXTROSE 5% 100ML IV SCH ×2 (04:17→15:14)
[2016-12-17 05:51] LABS: INR 1.2 (0.9-1.1); PARTIAL THROMBOPLASTIN RATIO 1.2; PROTHROMBIN TIME (PATIENT) 13.4 SECONDS (9.0-12.0)
[2016-12-17 05:52] LABS: BASO % 0.1 %; BASO ABS # 0.01 K/uL (0-0.2); COMPLETE YES; EOS % 3.1 %; HEMATOCRIT 28.2 % (42-52); IG% 0.6 %; LYMPH % 8.5 %; LYMPH ABS # 0.95 K/uL (1.2-3.4); MEAN CORPUSCULAR HGB CONC 32.6 g/dl (32-36); MEAN PLATELET VOLUME 8.8 fL (7.4-10.4); MONO % 10.3 %; NEUT % 77.4 %; PLATELET COUNT 211 K/uL (130-400); RED BLOOD COUNT 3.17 M/uL (4.7-6.1); WHITE BLOOD COUNT 11.15 K/uL (4.8-10.8)
[2016-12-17] MEDS: HEPARIN SOD 5000 UNIT/0.5 ML CARP SQ SCH ×3 (05:56→22:43)
[2016-12-17] MEDS ORDERED: EPOETIN ALFA 10,000 UNITS/ML VIAL IV. SCH (06:00)
[2016-12-17 06:32] LABS: BUN/CREATININE RATIO 3.4 (10-20); CALCIUM 6.9 mg/dl (8.5-10.1); CREATININE 6.4 mg/dl (0.60-1.40); MAGNESIUM 2.2 mg/dl (1.8-2.4); PHOSPHORUS 7.8 mg/dl (2.5-4.9); POTASSIUM 4.2 mmol/L (3.5-5.1)
--- NOTE | 2016-12-17 07:17 | DIAGNOSTIC IMAGING REPORT ---
CHEST ONE VIEW PORTABLE CLINICAL HISTORY: s/p VATS postoperative evaluation COMPARISON STUDY: 12/16/2016 FINDINGS: Unchanging pleural and parenchymal changes left lung base. Left-sided chest tube in good position. No current evidence for pneumothorax. Right lung remains clear. Catheter remains in superior vena cava. IMPRESSION: Unchanging postoperative changes left base. No significant pneumothorax. Electronically signed by: Aj Ojeda M.D. 12/17/2016 7:15 AM Dictated Date/Time: 12/17/2016 7:13 AM
--- NOTE | 2016-12-17 07:53 | Nephrology Progress Note ---
Nephrology Progress Note Date of Service: Dec 17, 2016. Subjective 61 yo male with esrd on hd and also with pd catheter who presented with a hemothorax. chest tube output is slowing down. getting daily hemodialysis. was recently putting neosporin on the pd catheter instead of gentamicin since he felt the gentamicin was not working. pt does not like his current binders since it causes diarrhea and gas. Objective Date Time Temp Pulse Resp B/P Pulse Ox O2 Delivery O2 Flow Rate FiO2 12/17/16 04:00 36.4 85 18 141/73 95 Nasal Cannula 2.5 12/17/16 04:00 95 Room Air 2.0 12/17/16 02:11 37.6 12/17/16 02:07 37.6 90 18 147/73 97 Nasal Cannula 2.5 12/17/16 00:01 95 Room Air 2.0 12/16/16 23:18 37.1 96 16 129/69 94 Room Air 12/16/16 22:00 84 18 121/50 94 Room Air 12/16/16 21:00 36.7 86 16 148/77 94 Room Air 12/16/16 20:00 Room Air 12/16/16 20:00 91 Room Air 12/16/16 20:00 36.7 80 16 144/77 91 Room Air 12/16/16 19:50 36.7 80 19 144/77 91 12/16/16 19:00 36.8 77 16 147/75 98 Room Air 12/16/16 18:15 36.6 76 18 96 2.0 12/16/16 18:10 36.6 76 18 113/58 96 Nasal Cannula 3 12/16/16 18:00 81 18 112/68 97 Nasal Cannula 3 12/16/16 17:50 79 18 107/60 97 Mask 10 12/16/16 17:48 36.4 105 16 106/61 100 Mask 10 12/16/16 14:46 37.0 87 20 165/82 95 Nasal Cannula 2.0 12/16/16 14:46 Room Air 12/16/16 14:14 37.2 88 181/92 12/16/16 14:00 84 169/74 12/16/16 13:45 90 174/85 12/16/16 13:30 85 165/82 12/16/16 13:00 92 174/81 12/16/16 13:00 84 191/79 12/16/16 12:45 87 179/89 12/16/16 12:30 88 168/93 12/16/16 12:24 79 175/88 12/16/16 12:00 86 158/91 12/16/16 11:50 84 148/85 12/16/16 11:45 84 148/85 12/16/16 11:35 84 148/85 12/16/16 11:30 37.1 84 18 148/85 98 2.0 12/16/16 11:30 84 148/85 12/16/16 11:15 92 154/84 12/16/16 11:00 88 148/79 12/16/16 10:45 87 158/89 12/16/16 10:30 82 161/84 12/16/16 10:15 37.2 82 154/87 12/16/16 08:00 37.1 86 16 142/78 97 Nasal Cannula 2.0 12/16/16 08:00 Room Air Physical Exam: General-aaox3 Eyes-no scleral icterus ENT-mmm Neck-supple Lungs-+chest tube in left chest Heart-rrr Abdomen-bs+ s/nt/nd, +pd catheter Extremities-no c/c/e Neuro-nonfocal Current Inpatient Medications Medications (Trade) Dose Ordered Sig/Aleksandra Route Start Time Stop Time Status Last Admin Dose Admin Vancomycin HCl (Consult) 1 ea UD PRN N/A 12/14/16 07:15 01/13/17 07:14 Piperacillin Sod/ Tazobactam Sod 1 ea 1 ea UD PRN N/A 12/14/16 07:15 01/13/17 07:14 Piperacillin Sod/ Tazobactam Sod/ Dextrose (Zosyn Iv/D5 100ml) 120 ml @ 30 mls/hr Q12H IV 12/14/16 16:00 12/21/16 15:59 12/17/16 04:17 30 MLS/HR Ioversol (Optiray 320) 125 ml UD PRN IV 12/14/16 10:30 12/18/16 10:29 Amlodipine Besylate (Norvasc Tab) 5 mg QAM PO 12/15/16 10:00 01/14/17 09:59 Amiodarone HCl (Cordarone Tab) 200 mg QAM PO 12/15/16 10:00 5/12/17 09:59 12/15/16 14:23 200 MG Carvedilol (Coreg Tab) 12.5 mg BID PO 12/15/16 10:00 01/14/17 09:59 Heparin Sodium (Porcine) 5000 unit 5,000 unit Q8H SQ 12/15/16 14:00 01/14/17 13:59 12/15/16 20:42 5,000 UNIT Pantoprazole Sodium/Syringe (Protonix Inj/ Syringe) 10 ml @ 5 mls/min DAILY@21 IV 12/15/16 09:00 01/14/17 08:59 12/16/16 09:05 5 MLS/MIN Acetaminophen (Tylenol Tab) 500 mg Q8 PRN PO 12/15/16 23:45 01/14/17 23:44 Future Hold 12/15/16 23:56 500 MG Eszopiclone (Lunesta Tab) 1 mg HSZ PRN PO 12/15/16 23:45 01/14/17 23:44 12/15/16 23:56 1 MG Ondansetron HCl (Zofran Inj) 4 mg Q4H PRN IV 12/16/16 17:30 01/15/17 17:29 Docusate Sodium 100 mg 100 mg BID PO 12/16/16 21:00 01/15/17 20:59 12/16/16 19:26 100 MG Cefazolin Sodium/ Dextrose (Ancef Iv/D5 50ml) 110 ml @ 100 mls/hr Q8H IV 12/17/16 00:00 12/17/16 09:05 12/17/16 00:28 100 MLS/HR Metoclopramide HCl (Reglan Inj) 10 mg Q8H IV. 12/16/16 18:00 12/17/16 17:59 12/17/16 02:20 10 MG Morphine Sulfate 1 mg 1 mg Q1H PRN IV 12/16/16 17:30 12/30/16 17:29 Acetaminophen/ Empty Bag (Ofirmev Iv/ Empty Iv Bag 100ml) 100 ml @ 400 mls/hr Q8H IV 12/16/16 18:00 01/15/17 17:29 12/17/16 02:44 400 MLS/HR Oxycodone HCl (Roxicodone Immediate Rel Tab) 5 mg Q6H PRN PO 12/16/16 17:45 12/30/16 17:44 Morphine Sulfate (MoRPHine SULFATE INJ) 2 mg Q1H PRN IV 12/16/16 18:00 12/30/16 17:59 12/16/16 18:38 2 MG Epoetin Carlos Alberto (Procrit Inj) 10,000 units TODAY@0600 IV. 12/17/16 06:00 12/17/16 23:59 Heparin Sodium (Porcine) (No Heparin In Dialysis) 1 ea TODAY@0800 N/A 12/17/16 08:00 12/17/16 23:59 Last 24 Hours Test 12/16/16 15:10 12/17/16 05:25 Hemoglobin 9.7 g/dL 9.2 g/dL Hematocrit 29.2 % 28.2 % White Blood Count 11.15 K/uL Red Blood Count 3.17 M/uL Mean Corpuscular Volume 89.0 fL Mean Corpuscular Hemoglobin 29.0 pg Mean Corpuscular Hemoglobin Concent 32.6 g/dl Platelet Count 211 K/uL Mean Platelet Volume 8.8 fL Neutrophils (%) (Auto) 77.4 % Lymphocytes (%) (Auto) 8.5 % Monocytes (%) (Auto) 10.3 % Eosinophils (%) (Auto) 3.1 % Basophils (%) (Auto) 0.1 % Neutrophils # (Auto) 8.62 K/uL Lymphocytes # (Auto) 0.95 K/uL Monocytes # (Auto) 1.15 K/uL Eosinophils # (Auto) 0.35 K/uL Basophils # (Auto) 0.01 K/uL RDW Standard Deviation 62.0 fL RDW Coefficient of Variation 19.6 % Immature Granulocyte % (Auto) 0.6 % Immature Granulocyte # (Auto) 0.07 K/uL Prothrombin Time 13.4 SECONDS Prothromb Time International Ratio 1.2 Activated Partial Thromboplast Time 30.6 SECONDS Partial Thromboplastin Ratio 1.2 Sodium Level 139 mmol/L Potassium Level 4.2 mmol/L Chloride Level 102 mmol/L Carbon Dioxide Level 28 mmol/L Anion Gap 9.0 mmol/L Blood Urea Nitrogen 22 mg/dl Creatinine 6.40 mg/dl Est Creatinine Clear Calc Drug Dose 13.4 ml/min Estimated GFR () 9.9 Estimated GFR (Non- 8.6 BUN/Creatinine Ratio 3.4 Random Glucose 76 mg/dl Calcium Level 6.9 mg/dl Phosphorus Level 7.8 mg/dl Magnesium Level 2.2 mg/dl Random Vancomycin Level 15.0 mcg/ml Assessment & Plan ESRD-pt has been getting daily dialysis and volume status much improved. urination has reduced likely from removing volume appropriately. pt interested in switching to peritoneal dialysis once training is set up. plan on dialysis again today, tomorrow and tuesday while inpatient. albumin levels are low which is prohibitory to the pd at this time. Anemia of renal failure-transfusing prn with the active bleeding although appears to be slowing down. also on procrit per protocol. TAVIA-phos levels are high and will start patient on tums with meals to help control the phosphorus since the other binders do not agree with him.
[2016-12-17] MEDS: CARVEDILOL 12.5 MG TAB PO SCH ×3 (08:29→20:52)
[2016-12-17] MEDS: AMLODIPINE BESYLATE 5 MG TAB PO SCH ×2 (08:29→15:18)
[2016-12-17] MEDS: DOCUSATE SODIUM 100 MG CAP PO SCH ×2 (08:30→20:51)
[2016-12-17] MEDS: PANTOprazole INJ 40 MG in SYRINGE 0 ML IV SCH (08:31)
--- NOTE | 2016-12-17 08:35 | Anesthesiology Progress Note ---
Anesthesia Post Op Note Date & Time Dec 17, 2016 at 08:34 Vital Signs Pain Intensity: 4.0 Vital Signs Past 12 Hours Date Time Temp Pulse Resp B/P Pulse Ox O2 Delivery O2 Flow Rate FiO2 12/17/16 08:11 37.3 91 18 134/81 93 Room Air 12/17/16 04:00 36.4 85 18 141/73 95 Nasal Cannula 2.5 12/17/16 04:00 95 Room Air 2.0 12/17/16 02:11 37.6 12/17/16 02:07 37.6 90 18 147/73 97 Nasal Cannula 2.5 12/17/16 00:01 95 Room Air 2.0 12/16/16 23:18 37.1 96 16 129/69 94 Room Air 12/16/16 22:00 84 18 121/50 94 Room Air 12/16/16 21:00 36.7 86 16 148/77 94 Room Air Notes Mental Status: alert / awake / arousable, participated in evaluation Anesthetic Complications: no major complications apparent
--- NOTE | 2016-12-17 09:46 | Progress Note ---
Internal Med Progress Note Date of Service: Dec 17, 2016. Provider Documentation: SUBJECTIVE: Patient is seen and examined at bedside. Had dialysis today. States having mild soreness of left UE. Chest tube output decreasing. Denies any chest pain, SOB , cough, dizziness, nausea, abd pain. OBJECTIVE: Vital Signs-as noted below Physical Exam: General Appearance:Moderately built and nourished, no apparent distress Head: normocephalic, Atraumatic Eyes: normal inspection, EOMI, PERRLA Neck: supple, Trachea midline Respiratory/Chest: Left sided crackles, + chest tube in place. No accessory muscle use Cardiovascular: S1, S2, + tachycardia, No murmur Abdomen/GI:Soft, Non tender, Bowel sounds present, No guarding/rigidity/ organomegaly Extremities/Musculoskelatal:normal inspection, + pedal edema, L >R Neurologic/Psych:AAOX3, grossly no focal neurological deficits Skin: normal color, warm Lab data as noted below. ASSESSMENT & PLAN: Back pain: Secondary to left hemorrhagic loculated pleural effusion with mediastinal shift S/P Left chest tube on 12/14/2016 S/P Left thoracoscopy with evacuation of left clotted hemothorax on 12/16/16 CTA: Negative for aortic dissection Blood culture/Plural fluid culture: Negative to date Appreciate Linseed Oil Order Filler/CT surgery help DNAse and tPAse per CT surgery Pleural fluid: Gram stain - Moderate WBCs, No organisms. MRSA screen Negative Continue IV antibiotics for now. Was febrile yesterday, mild leukocytosis. Plan to titrate tomorrow Monitor Hb: 9.2 today S/P 5 units PRBC since admission Likely to get chest tube removed tomorrow Metabolic Encephalopathy: Resolved Could be secondary to Uremia, acute illness CT head:No acute pathology On dialysis per Nephrology Hyperkalemia: H/O ESRD ON HD and planned for transitioned to PD S/P Calcium, Bicarb, Insulin, Glucose while in ED Resolved Anemia: H/O GI bleed, ESRD Likely multifactorial: Left hemothorax, ESRD On Protonix IV BID S/P 5 units PRBCs Monitor H&H Transfuse PRN Appreciate GI input No plan for endoscopy Hyper coagulopathy: Resolved On coumadin at home for P.afib S/P Vit K and Kcentra To resume Coumadin when Hb stable and no further bleeding Monitor INR:1.2 today Hypertension: H/O non compliance Stable Monitor Continue amlodipine, coreg, amiodarone ESRD Fluid overload status Small Pericardial effusion without cardiac tamponade Dialysis per Nephrology EF: 50-55%. Grade I diastolic dysfunction Dialysis per Nephrology Albumin levels low: Not a candidate for PD for now P.afib: Currently in sinus Coumadin on hold Continue Coreg, amiodarone Possible sepsis: Less likely On IV vanco and Zosyn Cultures: negative to date GI Px: On IV Protonix daily Diet: Clear liquid diet, advancing diet as tolerated DVT Px: Heparin SQ Plan to restart Coumadin when appropriate CODE STATUS: Full code DISPOSITION: Continue monitoring in Telemetry PROCEDURES: CTA: 1. Unremarkable CT angiogram of the thoracic aorta. 2. A left-sided chest tube has been placed. There is only a small residual left pleural effusion and the left lung has been reinflated. 3. The right lung is clear noting dependent atelectasis. 4. Cardiomegaly and small pericardial effusion. 5. A trace pneumothorax is seen in the left lung base. 6. An endotracheal tube is new from previous and in appropriate position. 7. There are patchy airspace opacities within the lingula. This may present a mild inflammatory pneumonitis or possibly mild reexpansion edema. 8. Multinodular goiter. 9. Additional findings as above. ECHO: * The left ventricle is normal in size. * There is moderate concentric left ventricular hypertrophy. * Ejection Fraction = 50-55%. * Grade I diastolic dysfunction, (abnormal relaxation pattern). * Small pericardial effusion. * There are no echocardiographic indications of cardiac tamponade. Vital Signs: Date Time Temp Pulse Resp B/P Pulse Ox O2 Delivery O2 Flow Rate FiO2 12/17/16 12:35 37.2 88 162/78 12/17/16 12:15 96 128/69 12/17/16 12:00 94 144/81 12/17/16 11:45 91 146/82 12/17/16 11:30 91 146/82 12/17/16 11:15 92 146/83 12/17/16 11:11 37.3 88 18 93 2.0 12/17/16 11:00 88 136/80 12/17/16 10:45 83 150/55 12/17/16 10:30 75 149/69 12/17/16 10:15 90 144/81 12/17/16 10:00 86 144/80 12/17/16 09:45 87 150/79 12/17/16 09:30 86 144/77 12/17/16 09:15 87 134/66 12/17/16 09:00 83 142/74 12/17/16 08:52 85 145/81 12/17/16 08:11 37.3 91 18 134/81 93 Room Air 12/17/16 08:00 Nasal Cannula 2.0 12/17/16 04:00 36.4 85 18 141/73 95 Nasal Cannula 2.5 12/17/16 04:00 95 Room Air 2.0 12/17/16 02:11 37.6 12/17/16 02:07 37.6 90 18 147/73 97 Nasal Cannula 2.5 12/17/16 00:01 95 Room Air 2.0 12/16/16 23:18 37.1 96 16 129/69 94 Room Air 12/16/16 22:00 84 18 121/50 94 Room Air 12/16/16 21:00 36.7 86 16 148/77 94 Room Air 12/16/16 20:00 Room Air 12/16/16 20:00 91 Room Air 12/16/16 20:00 36.7 80 16 144/77 91 Room Air 12/16/16 19:50 36.7 80 19 144/77 91 12/16/16 19:00 36.8 77 16 147/75 98 Room Air 12/16/16 18:15 36.6 76 18 96 2.0 12/16/16 18:10 36.6 76 18 113/58 96 Nasal Cannula 3 12/16/16 18:00 81 18 112/68 97 Nasal Cannula 3 12/16/16 17:50 79 18 107/60 97 Mask 10 12/16/16 17:48 36.4 105 16 106/61 100 Mask 10 12/16/16 14:46 37.0 87 20 165/82 95 Nasal Cannula 2.0 12/16/16 14:46 Room Air Lab Results: Results Past 24 Hours Test 12/16/16 15:10 12/17/16 05:25 Range/Units Hemoglobin 9.7 9.2 14.0-18.0 g/dL Hematocrit 29.2 28.2 42-52 % White Blood Count 11.15 4.8-10.8 K/uL Red Blood Count 3.17 4.7-6.1 M/uL Mean Corpuscular Volume 89.0 80-100 fL Mean Corpuscular Hemoglobin 29.0 25-34 pg Mean Corpuscular Hemoglobin Concent 32.6 32-36 g/dl Platelet Count 211 130-400 K/uL Mean Platelet Volume 8.8 7.4-10.4 fL Neutrophils (%) (Auto) 77.4 % Lymphocytes (%) (Auto) 8.5 % Monocytes (%) (Auto) 10.3 % Eosinophils (%) (Auto) 3.1 % Basophils (%) (Auto) 0.1 % Neutrophils # (Auto) 8.62 1.4-6.5 K/uL Lymphocytes # (Auto) 0.95 1.2-3.4 K/uL Monocytes # (Auto) 1.15 0.11-0.59 K/uL Eosinophils # (Auto) 0.35 0-0.5 K/uL Basophils # (Auto) 0.01 0-0.2 K/uL RDW Standard Deviation 62.0 36.4-46.3 fL RDW Coefficient of Variation 19.6 11.5-14.5 % Immature Granulocyte % (Auto) 0.6 % Immature Granulocyte # (Auto) 0.07 0.00-0.02 K/uL Prothrombin Time 13.4 9.0-12.0 SECONDS Prothromb Time International Ratio 1.2 0.9-1.1 Activated Partial Thromboplast Time 30.6 21.0-31.0 SECONDS Partial Thromboplastin Ratio 1.2 Sodium Level 139 136-145 mmol/L Potassium Level 4.2 3.5-5.1 mmol/L Chloride Level 102 98-107 mmol/L Carbon Dioxide Level 28 21-32 mmol/L Anion Gap 9.0 3-11 mmol/L Blood Urea Nitrogen 22 7-18 mg/dl Creatinine 6.40 0.60-1.40 mg/dl Est Creatinine Clear Calc Drug Dose 13.4 ml/min Estimated GFR () 9.9 Estimated GFR (Non- 8.6 BUN/Creatinine Ratio 3.4 10-20 Random Glucose 76 70-99 mg/dl Calcium Level 6.9 8.5-10.1 mg/dl Phosphorus Level 7.8 2.5-4.9 mg/dl Magnesium Level 2.2 1.8-2.4 mg/dl Random Vancomycin Level 15.0 mcg/ml
[2016-12-17] MEDS ORDERED: ONDANSETRON INJ 2 MG/ML 2 ML VIAL IV PRN (10:00)
[2016-12-17] MEDS ORDERED: EpHEDrine SULFATE INJ 50 MG/ML AMP IV PRN (10:00)
[2016-12-17] MEDS ORDERED: MoRPHine SULFATE 2 MG/ML CARP IV PRN (10:00)
[2016-12-17] MEDS ORDERED: ATROPINE SULFATE 0.1 MG/ML 5ML SYR IV PRN (10:00)
[2016-12-17] MEDS ORDERED: PROMETHAZINE HCL INJ 6.25 MG in SODIUM CHLORIDE 0.9% 50ML 50 ML IV PRN (10:00)
[2016-12-17] MEDS ORDERED: OXYCODONE/ACETAMINOPHEN 5-325 TAB PO PRN (10:00)
[2016-12-17] MEDS ORDERED: FENTANYL CITRATE INJ 50 MCG/1 ML 2 ML VIAL IV PRN (10:00)
--- NOTE | 2016-12-17 10:36 | Pharmacy Progress Note ---
Pharmacy Antibiotic Prog Note Date of Service Dec 17, 2016. Subjective The patient is currently receiving IV Vancomycin based on random levels due to HD. The patient is currently on day #4 of IV therapy. Objective Height (Feet): 5 Height (Inches): 9.00 Weight (Kilograms): 89.800 Levels: Item Value Date Time Random Vancomycin Level 16.0 mcg/ml 12/14/16 1815 Random Vancomycin Level 12.4 mcg/ml 12/16/16 0515 Random Vancomycin Level 15.0 mcg/ml 12/17/16 0525 Lab Results (24hrs): Laboratory Tests Test 12/17/16 05:25 BUN/Creatinine Ratio 3.4 Blood Urea Nitrogen 22 mg/dl Creatinine 6.40 mg/dl White Blood Count 11.15 K/uL Red Blood Count 3.17 M/uL Hemoglobin 9.2 g/dL Hematocrit 28.2 % Mean Corpuscular Volume 89.0 fL Mean Corpuscular Hemoglobin 29.0 pg Mean Corpuscular Hemoglobin Concent 32.6 g/dl Platelet Count 211 K/uL Mean Platelet Volume 8.8 fL Neutrophils (%) (Auto) 77.4 % Lymphocytes (%) (Auto) 8.5 % Monocytes (%) (Auto) 10.3 % Eosinophils (%) (Auto) 3.1 % Basophils (%) (Auto) 0.1 % Neutrophils # (Auto) 8.62 K/uL Lymphocytes # (Auto) 0.95 K/uL Monocytes # (Auto) 1.15 K/uL Eosinophils # (Auto) 0.35 K/uL Basophils # (Auto) 0.01 K/uL Micro Results: Item Value Date Time Gram Stain - Final Resulted 12/14/16 0740 Pleural Fluid (Thoracentesis) Left Blood Culture - Preliminary Resulted 12/14/16 0916 Blood NO GROWTH TO DATE. Blood Culture - Preliminary Resulted 12/14/16 0930 Blood NO GROWTH TO DATE. MRSA DNA Surveillance Screen - Final Complete 12/14/16 1025 Nasal Specimen Negative for MRSA by DNA Probe Recent Pertinent Medications Item Value Date Time Vancomycin HCl 540 ml @ 200 mls/hr 12/14/16 0830 2000 mg/Sodium 0830/IV 12/14/16 0857 Chloride Vancomycin HCl 110 ml @ 125 mls/hr 12/14/16 2030 500 mg/Sodium NOW ONCE/IV 12/14/16 2026 Chloride Vancomycin HCl 265 ml @ 125 mls/hr 12/16/16 0800 750 mg/Sodium TODAY@0800 ONCE/IV 12/16/16 0905 Chloride Vancomycin HCl 265 ml @ 125 mls/hr 12/17/16 1100 750 mg/Sodium TODAY@1100/IV Chloride Item Value Date Time Piperacillin Sod/ 120 ml @ 200 mls/hr 12/14/16 0730 Tazobactam Sod NOW ONCE/IV 12/14/16 0856 4.5 gm/Dextrose Piperacillin Sod/ 120 ml @ 30 mls/hr 12/14/16 1600 Tazobactam Sod Q12H/IV 12/17/16 0417 4.5 gm/Dextrose Assessment & Plan Vancomycin * Goal peak level: 30-40mcg/mL * Goal trough level: 15-20mcg/mL * Level this AM: 15mcg/mL --> Therapeutic, ok to re-dose today (pt febrile overnight) * Give Vancomycin 750mg IV x 1 dose today * Random level has been ordered for: 12/18/16 AM Labs prior to HD session Pharmacy will continue to follow and will adjust dose/frequency as necessary. Thank you
[2016-12-17] MEDS ORDERED: VANCOMYCIN INJ 750 MG in SODIUM CHLORIDE 0.9% 250ML 250 ML IV SCH (11:00)
[2016-12-17] MEDS: AMIODARONE 200 MG TAB PO SCH (13:16)
[2016-12-17] MEDS: CALCIUM CARBONATE 500 MG CHEWABLE PO SCH ×3 (14:50→18:04)
--- NOTE | 2016-12-17 15:52 | SURGERY PROGRESS NOTE ---
DATE: 12/17/2016 Mr. Grullon was seen in dialysis today. He looks great. His chest x-ray looked quite good, just some postop changes in the base. He is on room air. He really did not drain much from his chest tube. He is having really very little in the way of pain. He is quite eager to go home. We are going to check a chest x-ray in the morning. If it looks good, I am going to remove this from Mr. Grullon. He should be ready to go home from my standpoint by tomorrow.
[2016-12-18] MEDS: ACETAMINOPHEN IV 1,000 MG in EMPTY BAG 0 ML IV SCH ×2 (01:02→10:00)
[2016-12-18] MEDS: PIPERACILL/TAZOBAC IV 4.5 GM in DEXTROSE 5% 100ML IV SCH (04:36)
[2016-12-18] MEDS: HEPARIN SOD 5000 UNIT/0.5 ML CARP SQ SCH ×2 (05:50→13:21)
[2016-12-18] MEDS ORDERED: EPOETIN ALFA INJ 12,000 UNITS in SYRINGE 0 ML IV. SCH (06:00)
[2016-12-18 06:36] LABS: BASO % 0.1 %; BASO ABS # 0.01 K/uL (0-0.2); COMPLETE YES; EOS % 4.7 %; HEMATOCRIT 30.2 % (42-52); IG% 0.8 %; LYMPH % 8.1 %; LYMPH ABS # 0.96 K/uL (1.2-3.4); MEAN CELL VOLUME 89.1 fL (80-100); MEAN CORPUSCULAR HEMOGLOBIN 28.6 pg (25-34); MEAN CORPUSCULAR HGB CONC 32.1 g/dl (32-36); MEAN PLATELET VOLUME 9.2 fL (7.4-10.4); MONO % 10.6 %; NEUT % 75.7 %; PLATELET COUNT 263 K/uL (130-400); RED BLOOD COUNT 3.39 M/uL (4.7-6.1); WHITE BLOOD COUNT 11.86 K/uL (4.8-10.8)
[2016-12-18 06:52] LABS: INR 1.3 (0.9-1.1); PARTIAL THROMBOPLASTIN RATIO 1.4; PROTHROMBIN TIME (PATIENT) 14.5 SECONDS (9.0-12.0)
[2016-12-18 07:24] LABS: BUN/CREATININE RATIO 3.6 (10-20); CALCIUM 8.2 mg/dl (8.5-10.1); CREATININE 6.6 mg/dl (0.60-1.40); MAGNESIUM 2.3 mg/dl (1.8-2.4); PHOSPHORUS 6.1 mg/dl (2.5-4.9); POTASSIUM 3.7 mmol/L (3.5-5.1)
[2016-12-18 07:35] VITALS: BP 145/78; PULSE 84; TEMP 37.1; O2SAT 90
[2016-12-18] MEDS: CALCIUM CARBONATE 500 MG CHEWABLE PO SCH ×2 (07:51→13:20)
[2016-12-18 08:00] VITALS: O2SAT 90
--- NOTE | 2016-12-18 08:27 | DIAGNOSTIC IMAGING REPORT ---
CHEST ONE VIEW PORTABLE HISTORY: pleural effusion COMPARISON: Chest 12/17/2016. FINDINGS: Left-sided chest tube remains unchanged in position. Small left pleural effusion and left basilar densities persist. The heart remains mildly enlarged. The right lung is clear.] Jugular catheter terminates in the SVC. Small amount of left-sided chest wall subcutaneous emphysema persists. IMPRESSION: No change in the left basilar densities and small left pleural effusion. Left-sided chest tube remains unchanged in position. No pneumothorax. Electronically signed by: Lei Monique M.D. 12/18/2016 8:24 AM Dictated Date/Time: 12/18/2016 8:23 AM
[2016-12-18] MEDS: AMIODARONE 200 MG TAB PO SCH (08:54)
--- NOTE | 2016-12-18 09:20 | Pharmacy Progress Note ---
Pharmacy Antibiotic Prog Note Date of Service Dec 18, 2016. Subjective The patient is currently receiving the following antimicrobial agents per Pharmacy consult: Vancomycin IV dosed on random levels due to HD Zosyn 4.5 g IV every 12 hours Objective Height (Feet): 5 Height (Inches): 9.00 Weight (Kilograms): 88.300 Levels: Item Value Date Time Random Vancomycin Level 20.3 mcg/ml 12/18/16 0620 Lab Results (24hrs): Laboratory Tests Test 12/18/16 06:20 BUN/Creatinine Ratio 3.6 Blood Urea Nitrogen 23 mg/dl Creatinine 6.60 mg/dl White Blood Count 11.86 K/uL Red Blood Count 3.39 M/uL Hemoglobin 9.7 g/dL Hematocrit 30.2 % Mean Corpuscular Volume 89.1 fL Mean Corpuscular Hemoglobin 28.6 pg Mean Corpuscular Hemoglobin Concent 32.1 g/dl Platelet Count 263 K/uL Mean Platelet Volume 9.2 fL Neutrophils (%) (Auto) 75.7 % Lymphocytes (%) (Auto) 8.1 % Monocytes (%) (Auto) 10.6 % Eosinophils (%) (Auto) 4.7 % Basophils (%) (Auto) 0.1 % Neutrophils # (Auto) 8.98 K/uL Lymphocytes # (Auto) 0.96 K/uL Monocytes # (Auto) 1.26 K/uL Eosinophils # (Auto) 0.56 K/uL Basophils # (Auto) 0.01 K/uL Micro Results: Item Value Date Time Gram Stain - Final Resulted 12/14/16 0740 Pleural Fluid (Thoracentesis) Left Blood Culture - Preliminary Resulted 12/14/16 0916 Blood NO GROWTH TO DATE. Blood Culture - Preliminary Resulted 12/14/16 0930 Blood NO GROWTH TO DATE. MRSA DNA Surveillance Screen - Final Complete 12/14/16 1025 Nasal Specimen Negative for MRSA by DNA Probe Assessment & Plan Assessment 61 year old male receiving Vancomycin + Zosyn IV for treatment of large inoculate pleural effusion s/p thoracoscopy and evacuation of left clotted hemothorax. Pleural fluid culture reported no growth to date. Day #5 of antimicrobial therapy Plan Vancomycin IV * Trough level of 20.3 mcg/mL is therapeutic (pre-HD level) * Patient continues to receive daily HD. * Will give dose of 500 mg IV today after HD and order random level for 4/16 am * Goal trough level for lung source : 15 to 20 mcg/mL. * Pleural fluid culture negative and MRSA nasal swab negative - consider discontinuation of Vancomycin if using solely for lung coverage. Piperacillin/tazobactam * Continue 4.5 g IV extended infusion every every 12 hours for CrCl 20 mL/min or less/HD Pharmacy will continue to follow and will adjust dose/frequency as necessary. Thank you
[2016-12-18] MEDS: DOCUSATE SODIUM 100 MG CAP PO SCH (09:36)
[2016-12-18] MEDS: AMLODIPINE BESYLATE 5 MG TAB PO SCH (09:36)
[2016-12-18] MEDS: CARVEDILOL 12.5 MG TAB PO SCH (09:36)
--- NOTE | 2016-12-18 10:08 | SURGERY PROGRESS NOTE ---
DATE: 12/18/2016 SUBJECTIVE: Mr. Grullon was seen today on 12/18/2016. Mr. Grullon looks quite good. I removed his chest tube. I thought his x-ray looked quite good. He had multiple questions, but none of them really pertain to our surgery. The patient is 2 days status post a thoracoscopic evacuation of hematoma. Final pathology is pending on that. I did remove his chest tube today. He has done quite well and I am going to allow him to be discharged from my perspective. I would like to see him back within next week or so with a chest x-ray. Otherwise, discharge instructions were given.
--- NOTE | 2016-12-18 10:33 | DIAGNOSTIC IMAGING REPORT ---
CHEST ONE VIEW PORTABLE HISTORY: s/p chest tube removal COMPARISON: Chest 12/18/2016. FINDINGS: Left-sided chest tube has been removed. No definite pneumothorax. Left basilar densities within the small left pleural effusion persist. The heart is stable in size. Right jugular catheter terminates in the SVC. The right lung is clear. Small focus of left chest wall subcutaneous emphysema persists. IMPRESSION: Interval removal of the left-sided chest tube. No pneumothorax. Electronically signed by: Lei Monique M.D. 12/18/2016 10:31 AM Dictated Date/Time: 12/18/2016 10:30 AM
[2016-12-18] MEDS ORDERED: PANTOprazole INJ 40 MG in SYRINGE 0 ML IV SCH (11:00)
[2016-12-18] MEDS ORDERED: VANCOMYCIN INJ 500 MG in SODIUM CHLORIDE 0.9% 250ML 250 ML IV SCH (12:00)
--- NOTE | 2016-12-18 13:12 | Progress Note ---
Internal Med Progress Note Date of Service: Dec 18, 2016. Provider Documentation: SUBJECTIVE: Patient is seen and examined at bedside. States feeling well and eager to get discharged. Chest tube was discontinued today. Denies any chest pain, SOB, cough , dizziness, nausea, abd pain. OBJECTIVE: Vital Signs-as noted below Physical Exam: General Appearance:Moderately built and nourished, no apparent distress Head: normocephalic, Atraumatic Eyes: normal inspection, EOMI, PERRLA Neck: supple, Trachea midline Respiratory/Chest: CTA, + bandage on left side. No accessory muscle use Cardiovascular: S1, S2, No murmur Abdomen/GI:Soft, Non tender, Bowel sounds present Extremities/Musculoskelatal:normal inspection, + pedal edema, L >R Neurologic/Psych:AAOX3, grossly no focal neurological deficits Skin: normal color, warm Lab data as noted below. ASSESSMENT & PLAN: Back pain: Secondary to left hemorrhagic loculated pleural effusion with mediastinal shift S/P Left chest tube on 12/14/2016 S/P Left thoracoscopy with evacuation of left clotted hemothorax on 12/16/16 CTA: Negative for aortic dissection Blood culture/Plural fluid culture: Negative to date Appreciate Underwriting Technician/CT surgery help S/P DNAse and tPAse for loculated effusion Pleural fluid: Gram stain - Moderate WBCs, No organisms. MRSA screen Negative S/P IV vanco and Zosyn (received 5 days) Monitor Hb: 9.7 today S/P 5 units PRBC since admission chest tube removed today (12/18/16). Cleared by CT surgery for discharge. Metabolic Encephalopathy: Resolved Could be secondary to Uremia, acute illness CT head:No acute pathology On dialysis per Nephrology Hyperkalemia: H/O ESRD ON HD and planned for transitioned to PD S/P Calcium, Bicarb, Insulin, Glucose while in ED Resolved Potassium:3.7 today Anemia: H/O GI bleed, ESRD Likely multifactorial: Left hemothorax, ESRD S/P Protonix IV BID S/P 5 units PRBCs Monitor H&H Transfuse PRN Appreciate GI input No plan for endoscopy Start PO PPI daily Hyper coagulopathy: Resolved On coumadin at home for P.afib S/P Vit K and Kcentra To resume Coumadin when Hb stable and no further bleeding Monitor INR:1.2 today Hypertension: H/O non compliance Stable Monitor Continue amlodipine, Coreg, amiodarone ESRD Fluid overload status Small Pericardial effusion without cardiac tamponade Dialysis per Nephrology EF: 50-55%. Grade I diastolic dysfunction Dialysis per Nephrology Albumin levels low: Not a candidate for PD for now P.afib: Currently in sinus Coumadin discontinued secondary to recurrent bleeding Continue Coreg, amiodarone Start Aspirin 81 mg daily Possible sepsis: Less likely S/P IV vanco and Zosyn Cultures: negative to date DVT Px: Heparin SQ CODE STATUS: Full code DISPOSITION: Continue monitoring in Telemetry Follow up with (PCP) on December 23, 2016 at 11:00AM Follow up your cardiology on December 23 at 1:00pm Follow up with Cardiothoracic surgery in one week with Chest X ray as advised Follow up with your [facility] for hemodialysis Complete the antibiotic course (Levaquin 250 mg oral, Every 48 hours) as advised Stop taking coumadin as it was discontinued Start taking Aspirin 81 mg daily for atrial fibrillation Seek immediate medical attention if your symptoms reoccur or worsen PROCEDURES: CTA: 1. Unremarkable CT angiogram of the thoracic aorta. 2. A left-sided chest tube has been placed. There is only a small residual left pleural effusion and the left lung has been reinflated. 3. The right lung is clear noting dependent atelectasis. 4. Cardiomegaly and small pericardial effusion. 5. A trace pneumothorax is seen in the left lung base. 6. An endotracheal tube is new from previous and in appropriate position. 7. There are patchy airspace opacities within the lingula. This may present a mild inflammatory pneumonitis or possibly mild reexpansion edema. 8. Multinodular goiter. 9. Additional findings as above. ECHO: * The left ventricle is normal in size. * There is moderate concentric left ventricular hypertrophy. * Ejection Fraction = 50-55%. * Grade I diastolic dysfunction, (abnormal relaxation pattern). * Small pericardial effusion. * There are no echocardiographic indications of cardiac tamponade. Vital Signs: Date Time Temp Pulse Resp B/P Pulse Ox O2 Delivery O2 Flow Rate FiO2 12/18/16 07:35 37.1 84 16 145/78 90 Room Air 12/18/16 00:00 Room Air 12/17/16 23:44 37.2 85 16 134/73 90 Room Air 12/17/16 22:25 90 17 113/73 94 Room Air 12/17/16 20:52 92/59 12/17/16 19:40 Room Air 12/17/16 15:46 37.2 93 17 159/84 90 Room Air 12/17/16 13:00 Room Air 12/17/16 13:00 37.9 92 16 154/76 92 Room Air Lab Results: Results Past 24 Hours Test 12/18/16 06:20 Range/Units White Blood Count 11.86 4.8-10.8 K/uL Red Blood Count 3.39 4.7-6.1 M/uL Hemoglobin 9.7 14.0-18.0 g/dL Hematocrit 30.2 42-52 % Mean Corpuscular Volume 89.1 80-100 fL Mean Corpuscular Hemoglobin 28.6 25-34 pg Mean Corpuscular Hemoglobin Concent 32.1 32-36 g/dl Platelet Count 263 130-400 K/uL Mean Platelet Volume 9.2 7.4-10.4 fL Neutrophils (%) (Auto) 75.7 % Lymphocytes (%) (Auto) 8.1 % Monocytes (%) (Auto) 10.6 % Eosinophils (%) (Auto) 4.7 % Basophils (%) (Auto) 0.1 % Neutrophils # (Auto) 8.98 1.4-6.5 K/uL Lymphocytes # (Auto) 0.96 1.2-3.4 K/uL Monocytes # (Auto) 1.26 0.11-0.59 K/uL Eosinophils # (Auto) 0.56 0-0.5 K/uL Basophils # (Auto) 0.01 0-0.2 K/uL RDW Standard Deviation 62.5 36.4-46.3 fL RDW Coefficient of Variation 19.4 11.5-14.5 % Immature Granulocyte % (Auto) 0.8 % Immature Granulocyte # (Auto) 0.09 0.00-0.02 K/uL Nucleated RBC Absolute Count (auto) 0.02 0-0 K/uL Nucleated Red Blood Cells % 0.2 % Prothrombin Time 14.5 9.0-12.0 SECONDS Prothromb Time International Ratio 1.3 0.9-1.1 Activated Partial Thromboplast Time 35.6 21.0-31.0 SECONDS Partial Thromboplastin Ratio 1.4 Sodium Level 139 136-145 mmol/L Potassium Level 3.7 3.5-5.1 mmol/L Chloride Level 100 98-107 mmol/L Carbon Dioxide Level 27 21-32 mmol/L Anion Gap 12.0 3-11 mmol/L Blood Urea Nitrogen 23 7-18 mg/dl Creatinine 6.60 0.60-1.40 mg/dl Est Creatinine Clear Calc Drug Dose 12.9 ml/min Estimated GFR () 9.6 Estimated GFR (Non- 8.3 BUN/Creatinine Ratio 3.6 10-20 Random Glucose 110 70-99 mg/dl Calcium Level 8.2 8.5-10.1 mg/dl Phosphorus Level 6.1 2.5-4.9 mg/dl Magnesium Level 2.3 1.8-2.4 mg/dl Random Vancomycin Level 20.3 mcg/ml
[2016-12-18] MEDS ORDERED: PRLSR20 PO (13:16)
[2016-12-18] MEDS ORDERED: ASPI81CH2 PO (13:16)
--- NOTE | 2016-12-18 13:19 | Discharge Summary ---
Discharge Summary Date of Service Dec 18, 2016. Discharge Summary Admission Date: Dec 14, 2016 at 06:43 Discharge Date: Dec 18, 2016 Discharge Disposition: Home Principal Diagnosis: Left Hemothorax, Hyperkalemia Procedures: Left Thoracoscopy, Evacuation of Hemothorax Left Partial Pleurectomy Left chest tube placement Consultations: CT surgery, Nephrology, Computer Systems Engineer Pending Studies/Follow-Up: Follow up with (PCP) on December 23, 2016 at 11:00AM Follow up your cardiology on December 23 at 1:00pm Follow up with Cardiothoracic surgery in one week with Chest X ray as advised Follow up with your Doctor Of Podiatry for hemodialysis Complete the antibiotic course (Levaquin 250 mg oral, Every 48 hours) as advised Stop taking coumadin as it was discontinued Start taking Aspirin 81 mg daily for atrial fibrillation Seek immediate medical attention if your symptoms reoccur or worsen Medication Reconciliation New Medications: Aspirin (Aspirin) 81 Mg Chw 1 TAB PO DAILY for 30 Days, #30 TAB 3 Refills Omeprazole (Prilosec) 20 Mg Capcr 20 MG PO DAILY for 30 Days, #30 CAP Continued Medications: Albuterol Hfa (Ventolin Hfa) 200 Puffs/09199 Mcg Aers 2 PUFFS INH Q4 PRN for Wheezing, #1 INHALER Amiodarone HCl (Amiodarone HCl) 200 Mg Tab 200 MG PO DAILY for 30 Days, #30 TAB Amlodipine (Norvasc) 5 Mg Tab 5 MG PO BID, TAB Borage (Borago Officinalis) (Borage 1000) 1,000 Mg Cap 1000 MG PO UD Calcium Acetate (Phoslo 667 Mg) 667 Mg Cap 1 CAP PO WM, CAP Carvedilol (Coreg) 12.5 Mg Tab 12.5 MG PO BID Epoetin Carlos Alberto (Procrit) 2,000 [place] 14295 UNITS INJ 3XWK GIVE ON TUESDAYS,THURSDAYS AND SATURDAYS IN DIALYSIS Eszopiclone (Lunesta) 1 Mg Tab 1 MG PO HS PRN for Sleep, TAB Levofloxacin (Levaquin) 250 Mg Tab MG PO UD for 10 Days TAKE 2 PILLS TODAY FOLLOWED BY 1 PILL EVERY OTHER DAY FOR 10 DAYS Mometasone Furoate (Nasal) (Mometasone Furoate) 50 Mcg/Act Spr 2 SPRY RAFAEL DAILY Patiromer Sorbitex Calcium (Veltassa) 8.4 Gm Pow 8.4 GM PO DAILY Discontinued Medications: Warfarin Sod (Coumadin) 5 Mg Tab 5 MG PO DAILY for 30 Days, #30 TABS Admission Information HPI (per Admitting provider): Patient is a 61 yr old male with PMH of ESRD on HD and is planned to be transitioned to PD, CAD, P.afib on coumadin, anemia, HTN, H/O NSTEMI and H/O GI bleed presents to ED with persistent upper back pain for 2 days which is worse on left side, nausea, vomiting, abd pain, generalized weakness, productive cough as per ED documentation. In the ED, pt was dry heaving and producing reddish emesis. He was found to be hyperkalemic (7.1), Anemic with Hb 6.4, uremic with Cr:12.0, coagulopathy with INR: >8.0. Imaging suggestive of large left pleural effusion with near complete atelectases of the left lung identified in ED. EKG obtained showing peaked T and some T wave inversions. Patient received blood transfusion, Kcentra, Vit K and was treated for hyperkalemia with Calcium, Bicarb, Insulin, Glucose. He was started on protonix drip and patient was transferred to ICU for further management. Patient is currently sedated and intubated. Left sided chest tube is placed and is currently receiving hemodialysis. Patient was also started on vanco and zosyn. Currently not on pressors. Physical Exam (per Admitting): General Appearance: WD/WN, no apparent distress (Currently sedated and Intubated) Head: normocephalic, atraumatic Eyes: normal inspection, sclerae normal ENT: normal ENT inspection (Intubated) Neck: supple, trachea midline Respiratory/Chest: no respiratory distress, no accessory muscle use, + pertinent finding (Coarse breath sounds, b/l air entry) Cardiovascular: regular rate, rhythm, no murmur, + tachycardia, + pertinent finding (B/L pedal edema) Abdomen/GI: normal bowel sounds, soft, + pertinent finding (+ peritoneal catheter) Extremities/Musculoskelatal: normal inspection, + pedal edema Neurologic/Psych: + pertinent finding (Currently sedated and Intubated. Could not perform complete neuro exam) Skin: normal color, warm/dry Lymphatic: no adenopathy Hospital Course Back pain: Secondary to left hemorrhagic loculated pleural effusion with mediastinal shift S/P Left chest tube on 12/14/2016 S/P Left thoracoscopy with evacuation of left clotted hemothorax on 12/16/16 CTA: Negative for aortic dissection Blood culture/Plural fluid culture: Negative to date Appreciate Computer Systems Engineer/CT surgery help S/P DNAse and tPAse for loculated effusion Pleural fluid: Gram stain - Moderate WBCs, No organisms. MRSA screen Negative S/P IV vanco and Zosyn (received 5 days) Monitor Hb: 9.7 today S/P 5 units PRBC since admission chest tube removed today (12/18/16). Cleared by CT surgery for discharge. Metabolic Encephalopathy: Resolved Could be secondary to Uremia, acute illness CT head:No acute pathology On dialysis per Nephrology Hyperkalemia: H/O ESRD ON HD and planned for transitioned to PD S/P Calcium, Bicarb, Insulin, Glucose while in ED Resolved Potassium:3.7 today Anemia: H/O GI bleed, ESRD Likely multifactorial: Left hemothorax, ESRD S/P Protonix IV BID S/P 5 units PRBCs Monitor H&H Transfuse PRN Appreciate GI input No plan for endoscopy Start PO PPI daily Hyper coagulopathy: Resolved On coumadin at home for P.afib S/P Vit K and Kcentra To resume Coumadin when Hb stable and no further bleeding Monitor INR:1.2 today Hypertension: H/O non compliance Stable Monitor Continue amlodipine, Coreg, amiodarone ESRD Fluid overload status Small Pericardial effusion without cardiac tamponade Dialysis per Nephrology EF: 50-55%. Grade I diastolic dysfunction Dialysis per Nephrology Albumin levels low: Not a candidate for PD for now P.afib: Currently in sinus Coumadin discontinued secondary to recurrent bleeding Continue Coreg, amiodarone Start Aspirin 81 mg daily Possible sepsis: Less likely S/P IV vanco and Zosyn Cultures: negative to date DVT Px: Heparin SQ CODE STATUS: Full code DISPOSITION: Continue monitoring in Telemetry Follow up with (PCP) on December 23, 2016 at 11:00AM Follow up your cardiology on December 23 at 1:00pm Follow up with Cardiothoracic surgery in one week with Chest X ray as advised Follow up with your Doctor Of Podiatry for hemodialysis Complete the antibiotic course (Levaquin 250 mg oral, Every 48 hours) as advised Stop taking coumadin as it was discontinued Start taking Aspirin 81 mg daily for atrial fibrillation Seek immediate medical attention if your symptoms reoccur or worsen PROCEDURES: CTA: 1. Unremarkable CT angiogram of the thoracic aorta. 2. A left-sided chest tube has been placed. There is only a small residual left pleural effusion and the left lung has been reinflated. 3. The right lung is clear noting dependent atelectasis. 4. Cardiomegaly and small pericardial effusion. 5. A trace pneumothorax is seen in the left lung base. 6. An endotracheal tube is new from previous and in appropriate position. 7. There are patchy airspace opacities within the lingula. This may present a mild inflammatory pneumonitis or possibly mild reexpansion edema. 8. Multinodular goiter. 9. Additional findings as above. ECHO: * The left ventricle is normal in size. * There is moderate concentric left ventricular hypertrophy. * Ejection Fraction = 50-55%. * Grade I diastolic dysfunction, (abnormal relaxation pattern). * Small pericardial effusion. * There are no echocardiographic indications of cardiac tamponade. Total time spent on discharge = 35 minutes This includes examination of the patient, discharge planning, medication reconciliation, and communication with other providers. Discharge Instructions Discharge Instructions Date of Service Dec 18, 2016. Admission Reason for Admission: Hyperkalemia Discharge Discharge Diagnosis / Problem: Hemothorax, Hyperkalemia Discharge Goals Goal(s): Decrease discomfort, Improve function Activity Recommendations Activity Limitations: resume your previous activity Exercise/Sports Limitations: as tolerated . Instructions / Follow-Up Instructions / Follow-Up Follow up with (PCP) on December 23, 2016 at 11:00AM Follow up your cardiology on December 23 at 1:00pm Follow up with Cardiothoracic surgery in one week with Chest X ray as advised Follow up with your Doctor Of Podiatry for hemodialysis Complete the antibiotic course (Levaquin 250 mg oral, Every 48 hours) as advised Stop taking coumadin as it was discontinued Start taking Aspirin 81 mg daily for atrial fibrillation Seek immediate medical attention if your symptoms reoccur or worsen Current Hospital Diet Patient's current hospital diet: Renal Diet Discharge Diet Recommended Diet: Renal Diet Procedures Procedures Performed: Left Thoracoscopy, Evacuation of Hemothorax Left Partial Pleurectomy Pending Studies Studies pending at discharge: no Medical Emergencies . Who to Call and When: Medical Emergencies: If at any time you feel your situation is an emergency, please call 911 immediately. . Non-Emergent Contact Non-Emergency issues call your: Primary Care Provider, Doctor Of Podiatry Call Non-Emergent contact if: you have a fever, your pain is not controlled, your pain is worsening, your pain is unusual for you, you have any medication questions . . "Provider Documentation" section prepared by David Stevens. VTE Core Measure Inpt VTE Proph given/why not?: Unfractionated heparin SQ
[2016-12-18 13:46] VITALS: BP 145/78; PULSE 84; TEMP 37.1; O2SAT 90
[2017-04-28] MEDS ORDERED: CALC500C3 PO ×2 (13:31)
[2017-04-28] MEDS ORDERED: DIPH25CA5 PO (13:33)
[2017-04-28] MEDS ORDERED: CINA0.42 PO (13:34)
[2017-06-02] MEDS ORDERED: HYDR100T12 PO (11:36)
[2017-06-02] MEDS ORDERED: B-CO1CAP17 PO (11:36)
[2017-06-02] MEDS ORDERED: VELPHORO PO ×2 (11:36)
[2017-06-02] MEDS ORDERED: SUCR5CHW PO ×2 (11:36)
[2017-06-02] MEDS ORDERED: CARV12.5 PO (11:36)
[2017-06-02] MEDS ORDERED: AMIO200T4 PO (11:36)
[2017-06-02] MEDS ORDERED: FURO80TA63 PO (11:36)
[2017-06-02] MEDS ORDERED: ALLO100T PO (11:36)
[2017-06-02] MEDS ORDERED: MAGNESIUM PO (11:36)
[2017-06-02] MEDS ORDERED: PRED10TA PO (11:37)
== END 2016-12-18 15:35 | disposition home or self-care (01) | DRG 166 ==
LOC: ENRESERVDT → ENRESERVTM → C.EDB 04:42 → C.MSICU 06:43 → C.2E 12-16 17:44 → C.MSN 12-17 10:06 → EDBEDREQ 12-17 10:17
PROVIDERS: ADMIT Hospitalist; ATTEND Internal Medicine
PROC: 0BH17EZ Insertion of Endotracheal Airway into Trachea, Via Natural or Artificial Opening (ICD-10-PCS; principal; 2016-12-14)
PROC: 5A1935Z Respiratory Ventilation, Less than 24 Consecutive Hours (ICD-10-PCS; principal; 2016-12-14)
PROC: 0B9P30Z Drainage of Left Pleura with Drainage Device, Percutaneous Approach (ICD-10-PCS; principal; 2016-12-14)
PROC: 3E0F3GC Introduction of Other Therapeutic Substance into Respiratory Tract, Percutaneous Approach (ICD-10-PCS; principal; 2016-12-14)
PROC: 0WCB4ZZ Extirpation of Matter from Left Pleural Cavity, Percutaneous Endoscopic Approach (ICD-10-PCS; 2016-12-16)
PROC: 0BBP4ZX Excision of Left Pleura, Percutaneous Endoscopic Approach, Diagnostic (ICD-10-PCS; 2016-12-16)
PROC: 0B9P40Z Drainage of Left Pleura with Drainage Device, Percutaneous Endoscopic Approach (ICD-10-PCS; 2016-12-16)
DX: J94.2 Hemothorax (principal); N18.6 End stage renal disease; G93.41 Metabolic encephalopathy; I12.0 Hypertensive chronic kidney disease with stage 5 chronic kidney disease or end stage renal disease; D62 Acute posthemorrhagic anemia; N17.9 Acute kidney failure, unspecified; I30.9 Acute pericarditis, unspecified; K92.0 Hematemesis; E87.5 Hyperkalemia; J90 Pleural effusion, not elsewhere classified; I48.0 Paroxysmal atrial fibrillation; Z87.891 Personal history of nicotine dependence; I25.2 Old myocardial infarction; Z79.01 Long term (current) use of anticoagulants; Z79.899 Other long term (current) drug therapy; Z83.3 Family history of diabetes mellitus; Z82.49 Family history of ischemic heart disease and other diseases of the circulatory system

== ENCOUNTER → 2017-01-13 | Outpatient (CLI) | payer OTHER ==
[~2017-01-13] MED LIST changes: +ALLO100T PO; +AMIO200T4 PO; +ASPI81CH2 PO; +CALC500C3 PO; +CALC667C4 PO; +CARV12.5 PO; +CINA0.42 PO; -CMD5 PO; +DIPH25CA5 PO; +ESZO1TAB6 PO; +FURO80TA63 PO; +HYDR100T12 PO; +MAGNESIUM PO; +MOME6000 NAE; +OXYC-57 PO; +PATI1POW PO; +PRED10TA PO; +PRLSR20 PO; -SEVE800T7 PO; +SUCR5CHW PO; +VELPHORO PO; +VNTHFA/IN INH; +[UNRECOGNIZED DRUG - CODE] PO
--- NOTE | 2017-01-13 12:28 | DIAGNOSTIC IMAGING REPORT ---
CHEST 2 VIEWS ROUTINE HISTORY: J94.2 Hemothorax on [id number] COMPARISON: Chest 12/18/2016. FINDINGS: No pneumothorax. Small left pleural effusion has slightly decreased in size. Linear densities the left lung base favor subsegmental atelectasis. This has also improved. No new focal lung consolidations. The right lung is clear. The heart is stable in size. Right jugular catheter terminates in the SVC. IMPRESSION: Mild improvement within the small left effusion and left basilar densities. No pneumothorax. Electronically signed by: Lei Monique M.D. 01/13/2017 12:27 PM Dictated Date/Time: 01/13/2017 12:25 PM
== END | disposition home or self-care (01) ==
LOC: C.RAD 11:58
PROVIDERS: ATTEND Surgery
DX: J94.2 Hemothorax (principal)

== ENCOUNTER 2017-02-17 11:42 | Day surgery (SDC) | payer OTHER ==
[~2017-02-17] VITALS: Ht 152.4 cm; Wt 98.0 kg
[~2017-02-17 11:42] MED LIST changes: -ALLO100T PO; -AMIO200T4 PO; -B-CO1CAP17 PO; -CALC500C3 PO; -CARV12.5 PO; -CINA0.42 PO; -DIPH25CA5 PO; -FURO80TA63 PO; -HYDR100T12 PO; -MAGNESIUM PO; -OXYC-57 PO; -PRED10TA PO; -PRLSR20 PO; -SUCR5CHW PO; -VELPHORO PO
[2017-02-17 12:16] VITALS: BP 176/83; PULSE 96; TEMP 36.5; O2SAT 96; Ht 152.4 cm; Wt 98.0 kg
--- NOTE | 2017-02-17 12:39 | History and Physical ---
History & Physical Date of Service Feb 17, 2017. History & Physical Chief Complaint End stage renal disease, functioning CAPD catheter History of Present Illness The patient is a 61 year old male with end stage renal disease now requiring dialysis. He had a permcath placement and now a PD catheter in place. He is here for removal of his permcath. Allergies Coded Allergies: No Known Allergies (Unverified , 09/09/16) Home Medications Scheduled Amlodipine (Norvasc), 5 MG PO BID Borage (Borago Officinalis) (Borage 1000), 1,000 MG PO DAILY Calcitriol (Rocaltrol), 0.5 MCG PO QAM Calcium Carbonate (Tums), 1,000 MG PO HS Carvedilol (Carvedilol), 1 TAB PO BIDM Cholecalciferol (Vitamin D3), 2,000 INTER.UNIT PO QAM Cyanocobalamin (Vitamin B12), 250 MCG PO QAM Epoetin Carlos Alberto (Procrit), 10,000 UNITS SC WK Eszopiclone (Lunesta), 1 MG PO HS Folic Acid (Folvite), 1 TAB PO DAILY Hydralazine Hcl (Apresoline), 100 MG PO TID Polysaccharide Iron Complex (Ferric X-150), 150 MG PO BID Sevelamer Hydroch (Renagel), 2,400 MG PO TIDM Sodium Bicarbonate (Sodium Bicarbonate), 1,950 MG PO TID Sodium Polystyrene Sulfonate (Kayexalate Susp-Substitute), 15 GM PO DAILY Problem List Medical Problems: (1) Anemia in CKD (chronic kidney disease) (2) CKD (chronic kidney disease) stage 5, GFR less than 15 ml/min (3) ESRD (end stage renal disease) (4) HTN (hypertension) (5) Hyperkalemia Surgical Problems: (1) H/O colonoscopy (2) History of dental surgery (3) History of esophagogastroduodenoscopy (EGD) (4) Knapp teeth extracted Surgical / Medical History Past Medical/Surgical History: Cancer (basal cell), Hypertension, Kidney Disease Family History Diabetes mellitus FATHER FH: CHF (congestive heart failure) FATHER Hypertension FATHER Social History Smoking Status: Former Smoker Hx Alcohol Use - Type & Amnt: Yes Review of Systems Constitutional: + problem reported (pruritis), No chills, No diaphoresis, No fatigue, No fever, No malaise, No sweats, No weakness, No weight gain, No weight loss Respiratory: No ESPINO, No PND, No cough, No cyanosis, No dyspnea, No hemoptysis, No orthopnea, No problem reported, No short of breath, No sputum production, No stridor, No wheezing Cardiovascular: + edema (generalized), No chest pain, No chest pressure, No chest tightness, No cyanosis, No diaphoresis, No intermittent claudication, No lightheadedness, No mumur, No orthopnea, No palpitations, No paroxysmal nocturnal dyspnea, No problem reported, No syncope Gastrointestinal: No abdominal pain, No anorexia, No appetite changes, No belching, No constipation, No diarrhea, No dysphagia, No flatulence, No food intolerance, No heartburn, No hematemesis, No hematochezia, No hemorrhoids, No indigestion, No nausea, No problem reported, No rectal bleeding, No stool changes, No vomiting Genitourinary - Male: No difficulty urinating, No hematuria, No impotence, No penile discharge, No penile itching, No problem reported, No rash, No testicular pain, No testicular swelling Musculoskeletal: No back pain, No gout, No joint pain, No joint swelling, No muscle pain, No muscle stiffness, No muscle weakness, No neck pain, No problem reported Neurologic: No LOC, No dizziness, No headache, No lethargy, No memory loss, No numbness, No paresthesia, No pre-existing deficit, No problem reported, No seizures, No tics, No tingling, No tremors, No vertigo, No weakness Psychiatric: No alcohol abuse, No anxiety, No auditory hallucinations, No depression, No drug abuse, No homicidal ideation, No mood changes, No problem reported, No suicidal ideation, No visual hallucinations Physical Exam Constitutional: General Apperance: heathly-appearing, well-nourished, well-developed Level of Distress: mild distress Ambulation: ambulating normally Psychiatric: Mental Status: active & alert, normal mood, normal affect Orientation: oriented except where noted, to time, to place, to person Memory: recent memory normal, remote memory normal Lungs: Auscultation: breath sounds normal Cardiovascular: Heart Auscultation: RRR Peripheral Pulses: Radial Pulse: normal on the left, normal on the right Femoral Pulse: normal on the left, normal on the right Abdomen: Inspection & Palpation: soft Musculoskeletal: normal, normal strength (5/5 throughout), normal tone Extremities: Upper Right: no cyanosis, no edema, no varicosities, no palpable cord, no clubbing, no ulcers, no mottling Upper Left: no cyanosis, no edema, no varicosities, no palpable cord, no clubbing, no ulcers, no mottling Lower Right: edema Lower Left: edema Neurologic: Cranial Nerves: grossly intact Sensation: grossly intact Assessment and Plan Imp: End stage renal disease Functioning access Plan: Patient here for removal of his permcath. I have discussed the risks options and benefits of the procedure with the patient. The patient understands the risks options and benefits and agrees to the procedure.
--- NOTE | 2017-02-17 12:39 | Procedure Note ---
Pre-Mod Sedation Assessment General Date of Moderate Sedation: Feb 17, 2017. Vital Signs: Vital Signs Past 12 Hours Date Time Temp Pulse Resp B/P (MAP) Pulse Ox O2 Delivery O2 Flow Rate FiO2 02/17/17 12:16 36.5 96 2 176/83 (114) 96 Room Air Pre-Sedation Airway Assessment Smoking Status: Former Smoker Mallampati Classification: Class I ASA Classification: Class III Notes The planned sedation has been discussed with the patient and consent obtained. I have identified the patient, determined the appropriateness of sedation and have assessed the patient immediately prior to the procedure. All medicine(s) and interventions are by my order.
[2017-02-17] MEDS ORDERED: NURSING VERBAL MED ORDER ONE (12:45)
[2017-02-17] MEDS ORDERED: FENTANYL CITRATE INJ 50 MCG/1 ML 2 ML VIAL ONE (12:53)
[2017-02-17] MEDS ORDERED: MIDAZOLAM HCL 1 MG/ML 2ML VIAL ONE (12:53)
[2017-02-17 13:01] VITALS: BP 176/83; PULSE 96; TEMP 36.5; O2SAT 96
[2017-02-17] MEDS ORDERED: MIDAZOLAM HCL 1 MG/ML 2ML VIAL IV ONE (13:24)
[2017-02-17] MEDS ORDERED: LIDOCAINE HCL 1% 20 ML VIAL INFIL ONE (13:25)
[2017-02-17] MEDS ORDERED: FENTANYL CITRATE INJ 50 MCG/1 ML 2 ML VIAL IV ONE (13:25)
--- NOTE | 2017-02-17 13:40 | Procedure Note ---
Post-Moderate Sedation Plan General Date of Moderate Sedation Feb 17, 2017. Vital Signs: Vital Signs Past 12 Hours Date Time Temp Pulse Resp B/P (MAP) Pulse Ox O2 Delivery O2 Flow Rate FiO2 02/17/17 13:01 36.5 96 2 176/83 96 Room Air 02/17/17 12:16 36.5 96 2 176/83 (114) 96 Room Air Review - Discharge Plan Post Moderate Sedation Plan: On clinical assessment, the patient appears to have tolerated the conscious sedation without complications. Patient is recovering as anticipated. Patient will continue to be monitored by nursing and may be discharged when conscious sedation discharge criteria are met.
--- NOTE | 2017-02-17 13:41 | [facility] Post Operative Brief Note ---
Immediate Operative Summary Operative Date Feb 17, 2017. Pre-Operative Diagnosis End stage renal disease Functioning access Post-Operative Diagnosis Same Procedure(s) Performed Perm Cath Removal Moderate conscious sedation ([id number]) Surgeon Austen Tooth Inspector Surgeon(s) Marilynn Sharpe MD Estimated Blood Loss 0 Findings cuff and catheter removed Specimens a; perm cath Anesthesia local with conscious sedation Complication(s) None Disposition
--- NOTE | 2017-02-17 13:43 | Discharge Instructions ---
Discharge Instructions Date of Service Feb 17, 2017. Visit Reason for Visit: End Stage Renal Disease, Functioning Capd Catheter Discharge Discharge Diagnosis / Problem: Functioning peritoneal dialysis catheter Discharge Goals Goal(s): Therapeutic intervention Activity Recommendations Activity Limitations: resume your previous activity Anesthesia . Post Anesthesia Instructions: If you have had General Anesthesia or IV Sedation: * Do not drive today. * Resume driving when surgeon permits. * Do not make important decisions or sign legal documents today. * Call surgeon for: 1. Temperature elevations greater than 101 degrees F. 2. Uncontrollable pain. 3. Excessive bleeding. 4. Persistent nausea and vomiting. 5. Medication intolerance (nausea, vomiting or rash). * For nausea and vomiting use only clear liquids such as: tea, soda, bouillon until nausea subsides, then gradually increase diet as tolerated. * If you have any concerns or questions, call your surgeon's office. If physician is unavailable and it is an emergency, call 911 or go to the nearest emergency room. . Instructions / Follow-Up Instructions / Follow-Up Call [phone] with any questions or concerns. SPECIAL CARE INSTRUCTIONS: Medications: * Continue to take your medications as directed. If you have been given a prescription for Plavix, please fill it immediately and take as directed. Incision Care: * Your puncture site may have some bruising and minor swelling for about one week. * You will have a small dressing covering your puncture site. You may remove the dressing after 24 hours and shower. You may let the warm soapy water run over it, but be sure to dry the puncture site well and keep it dry. * DO NOT IMMERSE THE INCISION IN A TUB/POOL/etc. UNTIL HEALED. * Puncture sites should be kept covered with a band-aid until it begins to heal. Restrictions: * Depending on whether you leg or arm was punctured to access the arteries, you will be required to lay flat, hold your arm still, or both, for about 4 hours after the procedure to prevent bleeding. * Limit your activity for the first 48 hours. You may walk and go up and down steps. Avoid excessive bending or movement at the puncture site. Possible Complications: * Excessive Swelling - after blood flow is improved you may notice increased swelling in the lower legs. This is a normal response. This usually depends on the amount of blockages in the leg, how long they have been there prior to your procedure and how much blood flow was restored. Elevating your legs will help to improve this. Please notify our office ([phone] ) if the swelling does not go away after lying in bed overnight. * Infection/Drainage/Bleeding - Drainage or bleeding from the puncture site should be minimal. If you have excessive bleeding or drainage, call our office ([phone]) right away. * Pain - You may experience some mild pain or soreness at your puncture site. If your pain does not improve, please contact our office ([phone]). Call your doctor and seek emergent treatment if you develop: * Temperature above 101 degrees * Any fever or chills * Any redness or purulent drainage from the puncture site * Any new dusky/blue colored toes or feet with coolness or sharp or aching pain. SKIN IRRITATION: * You may experience some redness and/or swelling in the area where radiation was administered. If any skin irritation occurs, please contact your family physician. FOLLOW UP VISIT: Keep any scheduled doctor appointments. ACTIVITY RECOMMENDATIONS: See Above SPECIAL CARE INSTRUCTIONS: Call your doctor if: * Temperature above 101 degrees * Pain not relieved by pain medicine ordered * There is increased drainage or redness from any incision * You have any unanswered questions or concerns. Diet Recommendations Recommended Home Diet: resume previous diet Procedures Procedures Performed: Perm Cath Removal Moderate conscious sedation ([id number]) Pending Studies Studies pending at discharge: no Medical Emergencies . Who to Call and When: Medical Emergencies: If at any time you feel your situation is an emergency, please call 911 immediately. . Non-Emergent Contact Non-Emergency issues call your: Surgeon . . "Provider Documentation" section prepared by Narciso Boyce. .
[2017-02-17 13:55] VITALS: BP 180/95; PULSE 101; TEMP 36.8; O2SAT 94
[2017-02-17 14:04] VITALS: BP 173/84; PULSE 89; TEMP 36.8; O2SAT 100
--- NOTE | 2017-03-23 07:33 | [facility] Operative Report ---
Operative Report Operative Date 02/17/17 Pre-Operative Diagnosis End stage renal disease Functioning access Post-Operative Diagnosis Same Procedure(s) Performed Perm Cath Removal Moderate conscious sedation ([id number]) Surgeon Austen Club Licensee Surgeon(s) Marilynn Sharpe MD Estimated Blood Loss 0 Findings catheter and cuff removed Specimens a; perm cath Anesthesia local with conscious sedation Complication(s) None Disposition Indications This is a 61-year-old male with a functioning fistula. He is now admitted for removal of his PermCath. He understands the risks options benefits and agrees to have with this procedure. Description of Procedure The patient was taken to the angio suite and placed in the supine position. The right side of the neck, chest wall and catheter were prepped and draped in a sterile manner. Local anesthesia was then accomplished. Using sharp and blunt dissection, the cuff of the permcath was freed up from the surrounding fibrous tissue. The permcath and cuff were completely removed. Pressure was then applied and adequate hemostasis was obtained. A sterile dressing was then applied. The patient left the angio suite in good condition and tolerated the procedure well. I attest to the content of the Intraoperative Record and any orders documented therein. Any exceptions are noted below.
[2017-04-28] MEDS ORDERED: CALC500C3 PO ×2 (13:31)
[2017-04-28] MEDS ORDERED: DIPH25CA5 PO (13:33)
[2017-04-28] MEDS ORDERED: CINA0.42 PO (13:34)
[2017-06-02] MEDS ORDERED: VELPHORO PO ×2 (11:36)
[2017-06-02] MEDS ORDERED: MAGNESIUM PO (11:36)
[2017-06-02] MEDS ORDERED: SUCR5CHW PO ×2 (11:36)
[2017-06-02] MEDS ORDERED: HYDR100T12 PO (11:36)
[2017-06-02] MEDS ORDERED: FURO80TA63 PO (11:36)
[2017-06-02] MEDS ORDERED: CARV12.5 PO (11:36)
[2017-06-02] MEDS ORDERED: AMIO200T4 PO (11:36)
[2017-06-02] MEDS ORDERED: ALLO100T PO (11:36)
[2017-06-02] MEDS ORDERED: B-CO1CAP17 PO (11:36)
[2017-06-02] MEDS ORDERED: PRED10TA PO (11:37)
== END 2017-02-17 15:10 | disposition home or self-care (01) ==
LOC: C.ACU 11:42
PROVIDERS: ATTEND Surgery Vascular Surgery
DX: Z49.01 Encounter for fitting and adjustment of extracorporeal dialysis catheter (principal); I12.0 Hypertensive chronic kidney disease with stage 5 chronic kidney disease or end stage renal disease; N18.6 End stage renal disease; Z99.2 Dependence on renal dialysis; D63.1 Anemia in chronic kidney disease; E87.5 Hyperkalemia; Z87.891 Personal history of nicotine dependence; Z83.3 Family history of diabetes mellitus

== ENCOUNTER → 2017-03-03 | Outpatient (CLI) | payer OTHER ==
[~2017-03-03] MED LIST changes: +ALLO100T PO; +AMIO200T4 PO; +B-CO1CAP17 PO; +BND25 PO; +CALC500C3 PO; +CARV12.5 PO; +CINA0.42 PO; -CRD200 PO; -EPGI2M INJ; +FURO80TA63 PO; +HYDR100T12 PO; +MAGNESIUM PO; +OXYC-57 PO; +PRED10TA PO; +SUCR5CHW PO; +VELPHORO PO
--- NOTE | 2017-03-03 12:23 | DIAGNOSTIC IMAGING REPORT ---
TWO VIEW CHEST CLINICAL HISTORY: Hemothorax. FINDINGS: PA and lateral chest radiographs are compared to study dated 01/13/2017. Correlation is made with chest CT dated 12/14/2016. A central venous infusion port has infusion port has been removed from previous. The heart is enlarged and there is atherosclerotic calcification of the thoracic aorta. The right lung appears clear. There is trace fluid at the left lung base with foci of left basilar scarring/atelectasis. The left upper lung appears clear. There is no pneumothorax. The bony thorax appears intact. IMPRESSION: 1. There is a small volume of residual fluid in the left lung base with left basilar scarring/atelectasis. This has modestly improved from 01/13/2017. 2. The lungs are otherwise clear. 3. Cardiomegaly without radiographic evidence of congestive failure. 4. A right-sided central venous infusion port has been removed from previous. Electronically signed by: Maurizio Dumas M.D. 03/03/2017 12:22 PM Dictated Date/Time: 03/03/2017 12:19 PM
== END | disposition home or self-care (01) ==
LOC: C.RAD 10:31
PROVIDERS: ATTEND Surgery
DX: R94.2 Abnormal results of pulmonary function studies (principal); R91.8 Other nonspecific abnormal finding of lung field; I51.7 Cardiomegaly

== ENCOUNTER → 2017-04-25 | Outpatient (CLI) | payer OTHER ==
--- NOTE | 2017-05-02 13:07 | CODING QUERY NO DIAGNOSIS ---
TREATMENT RENDERED WITHOUT A DIAGNOSIS To promote full compliance with coding requirements relating to patient care, physician participation is requested in all cases of asphalt coater uncertainty. Please assist us with providing a diagnosis/symptom for the test(s) below: A diagnosis/symptom was not documented on your Order. A valid diagnosis/symptom is required to bill all insurances. Please remember that we are unable to code a diagnosis of rule out, probable, possible, questionable, or suspected. Tests that require a diagnosis: DOS: 04/25/17 * HEMOGLOBIN DIAGNOSIS: Provider Signature: Date: Thank you Shawna [facility] Information Management Once completed, please kindly fax back to [phone] For questions please call [phone]
== END | disposition home or self-care (01) ==
LOC: C.LABSPEC 09:17
PROVIDERS: ATTEND Internal Medicine Nephrology
DX: N18.6 End stage renal disease (principal); D63.1 Anemia in chronic kidney disease

== ENCOUNTER → 2017-05-26 | Outpatient (CLI) | payer OTHER ==
[~2017-05-26] MED LIST changes: -ASPI81CH2 PO; -CALC667C4 PO; -CARV12.52 PO; -ESZO1TAB6 PO; -LEVO-17 PO; -MOME6000 NAE; -PATI1POW PO; -[UNRECOGNIZED DRUG - CODE] PO
--- NOTE | 2017-05-26 14:49 | DIAGNOSTIC IMAGING REPORT ---
ULTRASOUND LEFT GROIN NONVASCULAR CLINICAL HISTORY: Inguinal hernia. COMPARISON STUDY: Abdominal CT dated 12/14/2016. FINDINGS: Real-time grayscale sonography of the left groin is performed to assess for the presence of a left inguinal hernia. There is a small and reducible fat-containing left inguinal hernia. The hernia orifice measures up to 2 cm. There is no evidence of bowel within the hernia sac. No left inguinal adenopathy is seen. IMPRESSION: There is a small and reducible fat-containing left inguinal hernia. Electronically signed by: Maurizio Dumas M.D. 05/26/2017 2:48 PM Dictated Date/Time: 05/26/2017 2:46 PM
== END | disposition home or self-care (01) ==
LOC: C.ULTR 14:18
PROVIDERS: ATTEND Surgery
DX: K40.90 Unilateral inguinal hernia, without obstruction or gangrene, not specified as recurrent (principal)

== ENCOUNTER 2017-06-09 06:58 | Day surgery (SDC) | payer OTHER ==
[2017-06-02 11:38] VITALS: BMI 31.0
--- NOTE | 2017-06-02 12:17 | PAT Medication Instructions ---
Service Date Jun 02, 2017. Current Home Medication List Albuterol Hfa (Ventolin Hfa), 2 PUFFS INH Q4 PRN for Wheezing Allopurinol (Zyloprim), 100 MG PO QPM Amiodarone Hcl (Cordarone), 200 MG PO QPM Amlodipine (Norvasc), 5 MG PO BID Carvedilol (Coreg), 12.5 MG PO BID Cinacalcet (Sensipar), 1 TAB PO QPM Diphenhydramine Hcl (Benadryl), 75 MG PO HS PRN for Sleep Furosemide (Lasix), 80 MG PO BID Hydralazine Hcl (Apresoline), 100 MG PO TID Prednisone (Prednisone), 0 PO UD Sucroferric Oxyhydroxide (Velphoro), 1 TAB PO SNACK Sucroferric Oxyhydroxide (Velphoro), 2 TAB PO AC Vitamin B Cmplx/Vitc/Folic Ac (Nephrocaps), 1 CAP PO QPM [Magnesium], 500 MG PO WK [Velphoro], TAB PO SNACK, (DME) [Velphoro], TAB PO AC, (DME) Medication Instructions For Your Scheduled Surgery -Continue as directed Prednisone (Prednisone), 0 PO UD [Magnesium], 500 MG PO WK - Hold the following medications the morning of surgery: [Velphoro] Furosemide (Lasix), 80 MG PO BID - Take the following medications the morning of surgery with a sip of water OTHERWISE NOTHING TO EAT OR DRINK AFTER MIDNIGHT: Albuterol Hfa (Ventolin Hfa), 2 PUFFS INH Q4 PRN for Wheezing (use if needed; BRING TO HOSPITAL) Hydralazine Hcl (Apresoline), 100 MG PO TID Amlodipine (Norvasc), 5 MG PO BID Carvedilol (Coreg), 12.5 MG PO BID - Take the following medications as scheduled the night before surgery: Allopurinol (Zyloprim), 100 MG PO QPM Amiodarone Hcl (Cordarone), 200 MG PO QPM Cinacalcet (Sensipar), 1 TAB PO QPM Diphenhydramine Hcl (Benadryl), 75 MG PO HS PRN for Sleep Vitamin B Cmplx/Vitc/Folic Ac (Nephrocaps), 1 CAP PO QPM Albuterol Hfa (Ventolin Hfa), 2 PUFFS INH Q4 PRN for Wheezing Hydralazine Hcl (Apresoline), 100 MG PO TID Furosemide (Lasix), 80 MG PO BID Amlodipine (Norvasc), 5 MG PO BID Carvedilol (Coreg), 12.5 MG PO BID If you have any questions please call us at [phone] or [phone] or [phone]
[2017-06-02 13:26] LABS: BASO % 0.2 %; BASO ABS # 0.02 K/uL (0-0.2); COMPLETE YES; HEMATOCRIT 33.9 % (42-52); IG% 1.3 %; LYMPH % 10.6 %; LYMPH ABS # 0.92 K/uL (1.2-3.4); MEAN CELL VOLUME 101.2 fL (80-100); MEAN CORPUSCULAR HEMOGLOBIN 30.7 pg (25-34); MEAN CORPUSCULAR HGB CONC 30.4 g/dl (32-36); MEAN PLATELET VOLUME 9.2 fL (7.4-10.4); MONO % 11.4 %; NEUT % 74.5 %; PLATELET COUNT 274 K/uL (130-400); RED BLOOD COUNT 3.35 M/uL (4.7-6.1); WHITE BLOOD COUNT 8.67 K/uL (4.8-10.8)
[2017-06-02 13:35] LABS: PARTIAL THROMBOPLASTIN RATIO 1.1
[2017-06-02 14:20] LABS: BUN/CREATININE RATIO 5.8 (10-20); CALCIUM 7.7 mg/dl (8.5-10.1); POTASSIUM 4.6 mmol/L (3.5-5.1)
[~2017-06-09] VITALS: Ht 177.8 cm; Wt 97.7 kg
[~2017-06-09 06:58] MED LIST changes: -CALC500C3 PO; -OXYC-57 PO; +SODIUM CHLORIDE 0.9% 1000ML 1,000 ML IV SCH
[2017-06-09 07:09] VITALS: BP 169/85; PULSE 82; TEMP 36.8; O2SAT 97; Ht 177.8 cm; Wt 97.7 kg
[2017-06-09] MEDS ORDERED: MIDAZOLAM HCL 1 MG/ML 2ML VIAL ONE (07:31)
[2017-06-09] MEDS ORDERED: LIDOCAINE HCL 2% 2 ML VIAL (20MG/ML) ONE (07:31)
[2017-06-09] MEDS ORDERED: FENTANYL CITRATE INJ 50 MCG/1 ML 2 ML VIAL ONE ×2 (07:31→09:27)
[2017-06-09] MEDS ORDERED: PROPOFOL IV EMULSION 10 MG/ML 20 ML VIAL IV ONE (07:31)
[2017-06-09] MEDS ORDERED: BUPIVACAINE 0.5 % 5 MG/1 ML MPF 30ML VIAL ONE (08:07)
[2017-06-09] MEDS ORDERED: NURSING VERBAL MED ORDER ONE (08:10)
[2017-06-09] MEDS ORDERED: CEFAZOLIN IV 2,000 MG/60 ML D5W IV ONE (08:19)
[2017-06-09 08:40] LABS: BUN/CREATININE RATIO 6.2 (10-20); CALCIUM 7.6 mg/dl (8.5-10.1); POTASSIUM 4.5 mmol/L (3.5-5.1)
[2017-06-09] MEDS ORDERED: EpHEDrine SULFATE 50MG/5ML SYR ONE (09:48)
[2017-06-09] MEDS ORDERED: DEXAMETHASONE SOD INJ 4 MG/ML VIAL ONE (09:48)
[2017-06-09] MEDS ORDERED: ONDANSETRON INJ 2 MG/ML 2 ML VIAL ONE (09:48)
[2017-06-09] MEDS ORDERED: SODIUM CHLORIDE 0.9% 1000ML 1,000 ML IV SCH (10:27)
[2017-06-09] MEDS ORDERED: OXYCODONE/ACETAMINOPHEN 5-325 TAB PO PRN ×2 (10:30)
[2017-06-09] MEDS ORDERED: ONDANSETRON INJ 2 MG/ML 2 ML VIAL IV PRN ×2 (10:30→11:00)
[2017-06-09] MEDS ORDERED: OXYC-57 PO (10:31)
--- NOTE | 2017-06-09 10:33 | Discharge Instructions ---
Discharge Instructions Date of Service Jun 09, 2017. Admission Reason for Admission: Left Inguinal Hernia, End Stage Renal Disease Discharge Discharge Diagnosis / Problem: Left Inguinal Hernia, End Stage Renal Disease Discharge Goals Goal(s): Decrease discomfort, Improve function Activity Recommendations Activity Limitations: as noted below Lifting Limitations: no more than 10 pounds Exercise/Sports Limitations: until after follow-up appointment May Resume Sexual Activity: after follow-up appointment Shower/Bathe: tomorrow Driving or Machine Use: resume 1 day after discharge . Instructions / Follow-Up Instructions / Follow-Up Please follow-up with Dr. Day in the office in 1-2 weeks. Please call the office at [phone] to make a follow-up appointment if you do not have one already. Please call the office with any questions or concerns. Current Hospital Diet Patient's current hospital diet: Discharge Diet Recommended Diet: Regular Diet Procedures Procedures Performed: Open Left Inguinal Hernia Repair Pending Studies Studies pending at discharge: no Medical Emergencies . Who to Call and When: Medical Emergencies: If at any time you feel your situation is an emergency, please call 911 immediately. . Non-Emergent Contact Non-Emergency issues call your: Primary Care Provider, Surgeon Call Non-Emergent contact if: temperature is above 101.5, your pain is not controlled, wound has increased drainage, wound has increased redness . "Provider Documentation" section prepared by Radha Valdivia. . VTE Core Measure Inpt VTE Proph given/why not?: SCD's [place] Drug Monitoring Program Search Results: patient reviewed within database, no issues identified
--- NOTE | 2017-06-09 10:44 | [facility] Post Operative Brief Note ---
Immediate Operative Summary Operative Date Jun 09, 2017. Pre-Operative Diagnosis Left Inguinal Hernia Post-Operative Diagnosis Left Inguinal Hernia Procedure(s) Performed Open Left Inguinal Hernia Repair Surgeon Dr. Day Heel Cementer Surgeon(s) Radha Acosta PA-C Estimated Blood Loss 3mL Findings large indirect hernia with very weak floor, plug and patch placed. Specimens none per surgeon Drains None Anesthesia LMA Complication(s) None Disposition Recovery Room / PACU
--- NOTE | 2017-06-09 10:49 | [facility] Operative Report ---
Operative Report Operative Date Jun 09, 2017. Pre-Operative Diagnosis Left Inguinal Hernia Post-Operative Diagnosis indirect left inguinal hernia Procedure(s) Performed left inguinal hernia repair Surgeon Dr. Day Copy Camera Operator Surgeon(s) Radha Acosta PA-C Estimated Blood Loss 3mL Findings large indirect hernia with very weak floor, plug and patch placed. Specimens none per surgeon Drains None Anesthesia LMA Complication(s) None Disposition Recovery Room / PACU Indications 61 year old male with symptomatic left inguinal hernia, plan for left inguinal hernia repair. The risks of the procedure were discussed, all questions were answered, and the patient agreed to proceed with surgery as planned. Description of Procedure The patient was properly identified, consented, and taken to the operating room where he was placed in the supine position. Laryngeal mask anesthesia was induced. SCDs and a safety belt were placed. Preoperative antibiotics were administered. The patient's groins and abdomen were prepped and draped in the standard sterile fashion. A surgical timeout was performed and all parties were in agreement that this was the correct patient and procedure to be performed and we continued as planned. Local anesthetic in the form of 0.5% Marcaine was injected along the proposed incision site. An oblique incision was made in the left groin and deepened down to subcutaneous tissue with electrocautery. The aponeurosis of the external oblique muscle was cleared of investing tissue. A small incision was made in the aponeurosis of the external oblique muscle with a knife and lengthened under direct visualization with Metzenbaum scissors. Flaps were raised cephalad and caudad on the posterior portion of the external oblique. The ilioinguinal nerve was identified divided. The cord structures were circumferentially dissected and encircled with a Brockway drain. A moderate indirect hernia was noted with a cord lipoma. The hernia sac was dissected away from the cord structures, and reduced back into the abdomen. Hemostasis was achieved within the wound. The floor was weak and patulous. A large polypropylene plug was placed into the defect and secured into place with 0 Nurolon sutures. A piece of polypropylene mesh was sewn into place using interrupted 0 Nurolon sutures. It was secured to the pubic tubercle medially, the inguinal ligament caudad, and the conjoined tendon cephalad. The internal ring was recreated by securing the tails and could accommodate the tip of the surgeons fifth digit. The wound was irrigated. The aponeurosis of the external oblique was then closed with a running 3-0 Vicryl suture. Marquis's fascia was reapproximated with interrupted 3-0 Vicryl suture. The skin was closed with a running 4-0 Monocryl subcuticular suture, and Dermabond was placed over the incision. The patient was extubated in the operating room and taken to the PACU for recovery without apparent incident. All sponge, instrument, and needle counts were correct at the conclusion of the procedure. The patient tolerated the procedure well. I attest to the content of the Intraoperative Record and any orders documented therein. Any exceptions are noted below.
[2017-06-09] MEDS ORDERED: EpHEDrine SULFATE INJ 50 MG/ML AMP IV PRN (11:00)
[2017-06-09] MEDS ORDERED: ATROPINE SULFATE 0.1 MG/ML 5ML SYR IV PRN (11:00)
[2017-06-09] MEDS ORDERED: FENTANYL CITRATE INJ 50 MCG/1 ML 2 ML VIAL IV PRN (11:00)
--- NOTE | 2017-06-09 11:00 | Anesthesiology Progress Note ---
Anesthesia Post Op Note Date & Time Jun 09, 2017 at 11:00 Vital Signs Pain Intensity: 0 Vital Signs Past 12 Hours Date Time Temp Pulse Resp B/P (MAP) Pulse Ox O2 Delivery O2 Flow Rate FiO2 06/09/17 10:32 36.2 90 14 182/91 100 Oxymask 10 06/09/17 07:09 36.8 82 20 169/85 (113) 97 Room Air Notes Mental Status: alert / awake / arousable, participated in evaluation Pt Amnestic to Procedure: Yes Nausea / Vomiting: adequately controlled Pain: adequately controlled Airway Patency, RR, SpO2: stable & adequate BP & HR: stable & adequate Hydration State: stable & adequate Anesthetic Complications: no major complications apparent
[2017-06-09 11:20] VITALS: BP 151/72; PULSE 75; TEMP 36.4; O2SAT 98
[2017-06-09 11:50] VITALS: BP 173/84; PULSE 79; O2SAT 97
[2017-06-09 12:20] VITALS: BP 161/81; PULSE 80; TEMP 36.5; O2SAT 93
== END 2017-06-09 13:05 | disposition home or self-care (01) ==
LOC: C.ACU 06:58
PROVIDERS: ATTEND Surgery
DX: K40.90 Unilateral inguinal hernia, without obstruction or gangrene, not specified as recurrent (principal); I12.0 Hypertensive chronic kidney disease with stage 5 chronic kidney disease or end stage renal disease; N18.6 End stage renal disease; D63.1 Anemia in chronic kidney disease; J44.9 Chronic obstructive pulmonary disease, unspecified; I25.2 Old myocardial infarction; Z99.2 Dependence on renal dialysis; Z87.891 Personal history of nicotine dependence; Z82.49 Family history of ischemic heart disease and other diseases of the circulatory system; Z83.3 Family history of diabetes mellitus

== ENCOUNTER 2017-08-17 00:31 | Inpatient (IN) | payer OTHER ==
[2017-08-17] VITALS (36 sets, daily range): BP systolic 132–172; BP diastolic 57–97; PULSE 76–93; TEMP 36.4–36.9; O2SAT 87–100; Ht 177.8 cm; Wt 74.4 kg
[~2017-08-17] VITALS: Ht 177.8 cm; Wt 74.4 kg
[~2017-08-17 00:31] MED LIST changes: -BND25 PO; +DIPH25CA5 PO; -SODIUM CHLORIDE 0.9% 1000ML 1,000 ML IV SCH; -VELPHORO PO
[2017-08-17] MEDS ORDERED: HYDROmorphone INJ 1 MG/ML SYR IV STA ×4 (00:41→07:46)
[2017-08-17] MEDS ORDERED: SPRIN/30 INH (01:08)
[2017-08-17] MEDS ORDERED: OXYC1TAB3 PO (01:08)
[2017-08-17] MEDS ORDERED: PRED20TA2 PO (01:08)
[2017-08-17] MEDS ORDERED: CALC500C3 PO (01:08)
[2017-08-17] MEDS ORDERED: ACET-1256 PO (01:08)
[2017-08-17] MEDS ORDERED: ALBU18002 INH (01:08)
[2017-08-17] MEDS ORDERED: FLUT0.15 NAE (01:08)
[2017-08-17] MEDS ORDERED: MAGN500C PO (01:08)
[2017-08-17] MEDS ORDERED: B-COCAP28 PO (01:08)
[2017-08-17 01:09] LABS: HEMATOCRIT 29.9 % (42-52); MEAN CELL VOLUME 96.8 fL (80-100); MEAN CORPUSCULAR HEMOGLOBIN 30.4 pg (25-34); MEAN CORPUSCULAR HGB CONC 31.4 g/dl (32-36); MEAN PLATELET VOLUME 9.9 fL (7.4-10.4); PLATELET COUNT 218 K/uL (130-400); RED BLOOD COUNT 3.09 M/uL (4.7-6.1); WHITE BLOOD COUNT 15.82 K/uL (4.8-10.8)
[2017-08-17 01:48] LABS: BUN/CREATININE RATIO 6.4 (10-20); CALCIUM 8.3 mg/dl (8.5-10.1); CREATININE 16.4 mg/dl (0.60-1.40); POTASSIUM 3.2 mmol/L (3.5-5.1)
[2017-08-17 01:59] LABS: BASO % 0.4 %; BASO ABS # 0.06 K/uL (0-0.2); COMPLETE YES; EOS % 0.1 %; IG% 6.8 %; LYMPH % 4.9 %; LYMPH ABS # 0.78 K/uL (1.2-3.4); MONO % 4.2 %; NEUT % 83.6 %
[2017-08-17] MEDS ORDERED: NITROGLYCERIN 0.4 MG SL PER TAB CHARGE SL STA (05:28)
[2017-08-17] MEDS ORDERED: POTASSIUM CHLORIDE 10 MEQ TABCR PO STA (05:35)
[2017-08-17] MEDS ORDERED: CARVEDILOL 12.5 MG TAB PO STA (05:45)
--- NOTE | 2017-08-17 05:55 | EMERGENCY ROOM VISIT NOTE ---
ED Visit Note First contact with patient: 00:37 I have personally evaluated and examined this patient. I agree with assessment and plan of Lisa Vences PA-C. Left leg acute pain mid thigh down with episodic discoloration/coolness as well as decreased pulses. He does not have complete arterial occlusion though definitely has decreased arterial perfusion compared to right leg. However, symptoms also have component of sciatica. Patient is highly complex dialysis patient previously on coumadin with intubations, left hemothorax, etc. Admits recently prescribing himself prednisone for self diagnosed rheumatologic condition. After several hours he developed "reflux" symptoms though EKG clearly shows lateral T wave inversions with some ST depressions. He is hypertensive with active chest pain and EKG abnormalities. At this point he will clearly need to come in for further work-up and evaluation along with monitoring left leg and decision on treatment.
[2017-08-17] MEDS ORDERED: NITROGLYCERIN OINT 2% 1GM PACKET EXT ONE (06:15)
[2017-08-17] MEDS ORDERED: IV FLUIDS COMPLETED PRN (06:45)
--- NOTE | 2017-08-17 07:17 | DIAGNOSTIC IMAGING REPORT ---
LEFT LOWER EXTREMITY VENOUS DOPPLER HISTORY: left leg pain COMPARISON STUDY: None. FINDINGS: There is normal compressibility and augmentation within the left lower extremity deep venous system. Slow flow identified throughout the veins. IMPRESSION: No DVT within the left lower extremity. Electronically signed by: Lei Monique M.D. 08/17/2017 7:16 AM Dictated Date/Time: 08/17/2017 7:15 AM
--- NOTE | 2017-08-17 07:41 | DIAGNOSTIC IMAGING REPORT ---
CHEST ONE VIEW PORTABLE HISTORY: Atypical chest pain. COMPARISON: Chest 03/03/2017. FINDINGS: A few linear scarlike densities within the left midlung zone persist. The lungs are otherwise clear. The heart is normal in size. No pleural effusions. No pneumothorax. Subcentimeter nodular density within the left perihilar location may be due to the overlapping vessels. This is less pronounced on the initial image. IMPRESSION: 1. No acute process within the chest. 2. Small nodular left perihilar density may be due to the overlapping vessels. This bears watching on future examinations. Electronically signed by: Lei Monique M.D. 08/17/2017 7:39 AM Dictated Date/Time: 08/17/2017 7:36 AM
--- NOTE | 2017-08-17 07:41 | DIAGNOSTIC IMAGING REPORT ---
ARTERIAL DOPPLER ULTRASOUND OF THE LEFT LOWER EXTREMITY CLINICAL HISTORY: Left leg pain and COMPARISON STUDY: No previous studies for comparison. FINDINGS: Color flow and spectral waveforms were obtained of the left lower extremity. There is monophasic flow within the left common femoral artery. There is a high velocity jet within the proximal left superficial femoral artery with a peak systolic velocity of 40 46 cm/s. This is consistent with a hemodynamic significant stenosis. There is very low and 2 monophasic flow within the mid and distal superficial femoral artery, popliteal artery, posterior tibial artery, anterior tibial artery, and proximal peroneal. No flow is identified within the distal left peroneal. No waveforms were obtained with toe pressure measurements. Also evident is a stenosis of the left profunda artery. IMPRESSION: 1. High-grade stenosis of the proximal left superficial femoral artery with markedly dampened monophasic waveforms distal to the stenosis. In addition there is monophasic flow within the left common femoral artery, and a more proximal iliac stenosis cannot be excluded. Also evident is a profunda origin stenosis. Electronically signed by: Jorge Osorio M.D. 08/17/2017 7:39 AM Dictated Date/Time: 08/17/2017 7:34 AM
--- NOTE | 2017-08-17 07:49 | DIAGNOSTIC IMAGING REPORT ---
LUMBAR SPINE MRI HISTORY: severe left leg pain and numbness TECHNIQUE: Multiplanar multisequence MRI of the lumbar spine was performed without the use of contrast. COMPARISON: None. FINDINGS: For the purpose of the report the L5-S1 disc space will be located on axial image 27 of 30. Alignment and curvature are intact. No fractures within the lumbar spine. Minimal disc space narrowing at L4-L5 and L5-S1. Mild facet degenerative changes within the lower lumbar spine. Kidneys are slightly atrophic and contain multiple T2 hyperintense lesions suggestive of cysts. L1-L2: No significant central canal or neural foraminal narrowing. L2-L3: No significant central canal or neural foraminal narrowing. L3-L4: No significant central canal or neural foraminal narrowing. L4-L5: Small broad-based posterior disc bulge with a small focal central disc protrusion. No significant central canal narrowing. There is mild bilateral neural foraminal narrowing. L5-S1: Small broad-based posterior disc bulge with a small focal central disc protrusion. This abuts the transiting bilateral S1 nerve roots. No significant central canal narrowing. There is mild bilateral neural foraminal narrowing. IMPRESSION: 1. Small broad-based posterior disc bulge with a small focal central disc protrusion at L4-L5 without significant central canal. 2. Small broad-based posterior disc bulge with a small focal central disc protrusion at L5-S1 which abuts but does not displace the transiting bilateral S1 nerve roots. No significant central canal narrowing. 3. Mild bilateral neural foraminal narrowing at L4-L5 and L5-S1. Electronically signed by: Lei Monique M.D. 08/17/2017 7:48 AM Dictated Date/Time: 08/17/2017 7:41 AM
[2017-08-17] MEDS ORDERED: FAMOTIDINE IV INJ 20 MG in DEXTROSE 5% 100ML 100 ML IV STA (07:51)
--- NOTE | 2017-08-17 07:57 | Surgery Consultation ---
Consultation Date of Service Aug 17, 2017. Chief Complaint Acute onset left leg pain History of Present Illness The patient is a 62 year old male who developed sudden onset left leg pain. Developed numbness of calf and coldness of the left foot. Claims the foot was pale. He does give a history of claudication of both lower extremities at short distances. He does say he was told he had a while ago but has not any rhythm problems that he knows. The pain of the leg was made better with Dilaudid. Vitals Vital Signs Past 12 Hours Date Time Temp Pulse Resp B/P (MAP) Pulse Ox O2 Delivery O2 Flow Rate FiO2 08/17/17 06:53 88 08/17/17 06:31 89 162/82 08/17/17 06:14 93 18 184/95 97 Nasal Cannula 3.0 08/17/17 06:02 99 18 175/85 95 Room Air 08/17/17 05:49 90 18 204/99 96 Room Air 08/17/17 05:10 91 18 187/99 95 Room Air 08/17/17 02:33 71 18 164/85 97 Room Air 08/17/17 00:36 36.8 105 18 162/82 98 Room Air Allergies Coded Allergies: No Known Allergies (Unverified , 08/17/17) Home Medications Scheduled Allopurinol (Zyloprim), 100 MG PO QPM Amiodarone Hcl (Cordarone), 200 MG PO QPM Amlodipine (Norvasc), 5 MG PO BID B-Complex W/ C & Folic Acid (Triphrocaps), 1 CAP PO DAILY Carvedilol (Coreg), 12.5 MG PO BID Cinacalcet (Sensipar), 1 TAB PO QPM Fluticasone Propionate (Nasal) (Flonase Allergy Relief), 2 SPRAYS RAFAEL DAILY Hydralazine Hcl (Apresoline), 100 MG PO TID Magnesium Oxide (Mg Supplement (Magnesium), 500 MG PO 2XWK Prednisone (Prednisone Tab), 30 MG PO DAILY Sucroferric Oxyhydroxide (Velphoro), 1 TAB PO SNACK Sucroferric Oxyhydroxide (Velphoro), 2 TAB PO AC Tiotropium [place] (Spiriva Handihaler), 1 CAP INH DAILY Scheduled PRN Acetaminophen (Tylenol), 1,000 MG PO DIRECTED PRN for Pain Albuterol Sulfate (Proair Respiclick), 2 PUFFS INH Q4H PRN for Wheezing Calcium Carbonate (Tums), Unknown Dose PO DIRECTED PRN for Indigestion Diphenhydramine Hcl (Benadryl), 75 MG PO HS PRN for Sleep Oxycodone Ir (Roxicodone Ir), Unknown Dose PO Q4H PRN for Severe Pain Problem List Medical Problems: (1) Anemia due to chronic kidney disease (2) Chest pain (3) ESRD (end stage renal disease) (4) GI bleed (5) Hemothorax on left (6) HTN (hypertension) (7) Hyperkalemia (8) Hypertensive urgency (9) Loculated pleural effusion (10) NSTEMI (non-ST elevated myocardial infarction) Surgical Problems: (1) H/O colonoscopy (2) History of dental surgery (3) History of esophagogastroduodenoscopy (EGD) (4) [place] teeth extracted Surgical / Medical History Hx Cardiac Surgery: No Hx Abdominal Surgery: No Hx Cancer Surgery: Yes (SKIN CANCER REMOVED) Hx Thoracic Surgery: Yes (PNEUMOTHROAX) Hx Orthopedic: No Hx Urinary Tract Surgery: No Past Medical/Surgical History: Hypertension, Kidney Disease, Other (A FIB) Family History Diabetes mellitus FATHER FH: CHF (congestive heart failure) FATHER Hypertension FATHER Social History Smoking Status: Former Smoker Hx Tobacco Use In Past Year?: No (Quit 2013, HX OF 1PPD X47 YEARS) Hx Alcohol Use - Type & Amnt: Yes (2 DRINKS PER WEEK) Hx Substance Use -Type & Amnt: No Review of Systems Constitutional: No chills, No diaphoresis, No fever, No malaise, No weakness, No weight gain, No weight loss, No sweats, No fatigue, No problem reported Respiratory: No cough, No cyanosis, No ESPINO, No hemoptysis, No orthopnea, No PND , No short of breath, No sputum production, No stridor, No wheezing, No dyspnea , No problem reported Cardiovascular: No chest pain, No chest tightness, No chest pressure, No palpitations, No syncope, No diaphoresis, No edema, No intermittent claudication , No orthopnea, No cyanosis, No mumur, No lightheadedness, No paroxysmal nocturnal dyspnea, No problem reported Gastrointestinal: + heartburn, + indigestion Musculoskeletal: + muscle pain Neurologic: + numbness (left leg), + paresthesia (left leg), No dizziness, No weakness, No headache, No lethargy, No pre-existing deficit, No seizures, No tics, No tingling, No tremors, No vertigo, No memory loss, No LOC, No problem reported Psychiatric: No anxiety, No alcohol abuse, No auditory hallucinations, No depression, No drug abuse, No homicidal ideation, No mood changes, No suicidal ideation, No visual hallucinations, No problem reported Physical Exam Constitutional: General Apperance: heathly-appearing, well-nourished, well-developed Level of Distress: mild distress Ambulation: ambulating normally Psychiatric: Mental Status: active & alert, normal mood, normal affect Orientation: oriented except where noted, to time, to place, to person Memory: recent memory normal, remote memory normal ENMT: normal ENT inspection Lungs: Auscultation: breath sounds normal Cardiovascular: Heart Auscultation: RRR Peripheral Pulses: Radial Pulse: normal on the left, normal on the right Femoral Pulse: normal on the left, normal on the right Posterior Tibialis Pulse: absent on the left, absent on the right Dorsalis Pedis Pulse: absent on the left, absent on the right Abdomen: Inspection & Palpation: soft Musculoskeletal: normal Extremities: Upper Right: no cyanosis, no edema, no varicosities, no palpable cord, no clubbing, no ulcers, no mottling Upper Left: no cyanosis, no edema, no palpable cord, no clubbing, no ulcers , no mottling Lower Right: no cyanosis, no edema, no varicosities, no palpable cord, no clubbing, no ulcers, no mottling Lower Left: pertinent finding (markedly decreased cap refill, cool to touch , mild decrease sensation of foot) Assessment and Plan Imp: Acute arterial occlusion left leg Plan: Recommend arteriography with possible intervention and possible TPA. I have discussed the risks options and benefits of the procedure with the patient. The patient understands the risks options and benefits and agrees to the procedure.
[2017-08-17] MEDS ORDERED: D5W AND 1/4NSS 1,000 ML IV SCH (07:59)
[2017-08-17] MEDS ORDERED: CEFAZOLIN 1000MG IV PUSH 5 ML IV SCH (08:00)
--- NOTE | 2017-08-17 08:06 | History and Physical ---
History & Physical Date & Time of Service: Aug 17, 2017 at 07:47 Chief Complaint: Left Leg Pain Primary Care Physician: Flakito Martinez M.D. History of Present Illness Source: patient, hospital records 62yo male with ESRD on home PD - followed by Dr. Tommy Martinez - who presents with the acute onset of severe left leg pain beginning late last pm/early this am. 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 He drove home last evening and he noted some typical reflux symptoms but had no leg pain. Prior to bed late last night he placed himself on his PD cycler. About 10 minutes after he started his peritoneal dialysis he developed severe, "burning" pain in the left calf. The pain spread to the left thigh. He also noted numbness and a "Cold" sensation in the left leg from the knee down to the foot. The pain was so severe and persistent and thus he came to the ER for evaluation. Upon evaluation in the ER at [facility] his left foot was noted to appear ischemic. He underwent venous & arterial dopplers. Venous duplex was negative for DVT. Arterial doppler appeared to show a left SFA high-grade occlusion. Also while awaiting admission in the ER he reported "reflux" symptoms and epigastric discomfort. He states that the current symptoms are typical for his GERD. He usually takes tums with resolution. Chronically he denies any recent exertional chest pain. He does have baseline dyspnea on exertion. He also has what sounds like claudication of the thighs with walking about 30 feet (has pain in both thighs and has to stop to rest; pain resolves with rest). Denies any back pain at this time. Lastly, he reports that he "self-diagnosed" himself with psoriatic arthritis and he self-prescribed prednisone about 3-4 weeks ago. He initially was taking 40mg of prednisone and weaned to 30mg with improvement in arthralgias and rashes. He reports having a referral to rheumatology in the future for this chronic issue. Past Medical/Surgical History PMH: 1. ESRD on home PD - followed by Dr. Martinez 2. anemia of CKD 3. GI bleeding - January 2016 - EGD/colonoscopy at that time, no source found ( polyps only) 4. HTN 5. h/o paroxysmal a. fib - no longer on anticoagulation 6. h/o type 2 NSTEMI in setting of severe anemia 7. h/o left-side hemothorax in setting of coumadin use s/p hemothorax evacuation by Dr. Santillan 8. CAD (per records, but denies h/o heart cath) 9. HTN 10. gout? 11. psoriatic arthritis? (self-diagnosed by patient due to chronic rash & joint pains) PSH: 1. permcath placement with subsequent removal 2. PD catheter placement 3. dental surgery 4. left hemothorax evacuation - Dr. 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 [place] ) Multi-Drug Resistant Organisms History of MDRO: No Allergies Coded Allergies: No Known Allergies (Unverified , 08/17/17) Home Medications Scheduled Allopurinol (Zyloprim), 100 MG PO QPM Amiodarone Hcl (Cordarone), 200 MG PO QPM Amlodipine (Norvasc), 5 MG PO BID B-Complex W/ C & Folic Acid (Triphrocaps), 1 CAP PO DAILY Carvedilol (Coreg), 12.5 MG PO BID Cinacalcet (Sensipar), 1 TAB PO QPM Fluticasone Propionate (Nasal) (Flonase Allergy Relief), 2 SPRAYS RAFAEL DAILY Hydralazine Hcl (Apresoline), 100 MG PO TID Magnesium Oxide (Mg Supplement (Magnesium), 500 MG PO 2XWK Prednisone (Prednisone Tab), 30 MG PO DAILY Sucroferric Oxyhydroxide (Velphoro), 1 TAB PO SNACK Sucroferric Oxyhydroxide (Velphoro), 2 TAB PO AC Tiotropium [place] (Spiriva Handihaler), 1 CAP INH DAILY Scheduled PRN Acetaminophen (Tylenol), 1,000 MG PO DIRECTED PRN for Pain Albuterol Sulfate (Proair Respiclick), 2 PUFFS INH Q4H PRN for Wheezing Calcium Carbonate (Tums), Unknown Dose PO DIRECTED PRN for Indigestion Diphenhydramine Hcl (Benadryl), 75 MG PO HS PRN for Sleep Oxycodone Ir (Roxicodone Ir), Unknown Dose PO Q4H PRN for Severe Pain Review of Systems Constitutional: No fever, No chills ENT: No nasal symptoms, No sore throat, No trouble swallowing Respiratory: + dyspnea on exertion, No cough, No wheezing Cardiovascular: + claudication, No chest pain, No orthopnea, No PND, No edema, No palpitations Abdomen: + GI bleeding (he attributes this to a hemorrhoid about 1 week ago), No pain, No nausea, No vomiting Musculoskeletal: + joint pain (left knee, right wrist, elbows b/l, shoulder) Genitourinary - Male: + problem reported (anuric) Neurologic: + numbness/tingling (left leg), No weakness Hematologic / Lymphatic: No abnormal bleeding/bruising Integumentary: + rash Physical Exam Vital Signs Date Time Temp Pulse Resp B/P (MAP) Pulse Ox O2 Delivery O2 Flow Rate FiO2 08/17/17 06:53 88 08/17/17 06:31 89 162/82 08/17/17 06:14 93 18 184/95 97 Nasal Cannula 3.0 08/17/17 06:02 99 18 175/85 95 Room Air 08/17/17 05:49 90 18 204/99 96 Room Air 08/17/17 05:10 91 18 187/99 95 Room Air 08/17/17 02:33 71 18 164/85 97 Room Air 08/17/17 00:36 36.8 105 18 162/82 98 Room Air General Appearance: + mild distress (pain, left leg) Head: normocephalic, atraumatic Eyes: PERRL ENT: hearing grossly normal, TMs normal, pharynx normal Neck: supple, no adenopathy, thyroid normal, no JVD, no carotid bruits Respiratory/Chest: lungs clear, no respiratory distress, no accessory muscle use Cardiovascular: regular rate, rhythm, no gallop, no murmur, + abnormal peripheral pulses (left popliteal pulse undetectable; left DP and post tib pulses not palpable) Abdomen/GI: normal bowel sounds, non tender, soft, no organomegaly, + distended (with PD fluid), + pertinent finding (PD catheter in place, left abdomen, clean , no erythema) Back: normal inspection Extremities/Musculoskelatal: no pedal edema, + pertinent finding (left foot ischemic with dusky toes x 5, cold to touch, pulses not palpable; right foot with 1-2+ pulses, normal color and temperature) Neurologic/Psych: no motor/sensory deficits, alert, normal mood/affect, normal reflexes, oriented x 3 Skin: + rash (erythematous macules & papules on back, chest, abdominal wall ( mild)), + cyanosis (left foot) Lymphatic: no adenopathy (cervical ) Diagnostics Laboratory Results Results Past 24 Hours Test 08/17/17 00:58 08/17/17 05:43 Range/Units White Blood Count 15.82 4.8-10.8 K/uL Red Blood Count 3.09 4.7-6.1 M/uL Hemoglobin 9.4 14.0-18.0 g/dL Hematocrit 29.9 42-52 % Mean Corpuscular Volume 96.8 80-100 fL Mean Corpuscular Hemoglobin 30.4 25-34 pg Mean Corpuscular Hemoglobin Concent 31.4 32-36 g/dl Platelet Count 218 130-400 K/uL Mean Platelet Volume 9.9 7.4-10.4 fL Neutrophils (%) (Auto) 83.6 % Lymphocytes (%) (Auto) 4.9 % Monocytes (%) (Auto) 4.2 % Eosinophils (%) (Auto) 0.1 % Basophils (%) (Auto) 0.4 % Neutrophils # (Auto) 13.24 1.4-6.5 K/uL Lymphocytes # (Auto) 0.78 1.2-3.4 K/uL Monocytes # (Auto) 0.66 0.11-0.59 K/uL Eosinophils # (Auto) 0.01 0-0.5 K/uL Basophils # (Auto) 0.06 0-0.2 K/uL RDW Standard Deviation 63.5 36.4-46.3 fL RDW Coefficient of Variation 17.9 11.5-14.5 % Immature Granulocyte % (Auto) 6.8 % Immature Granulocyte # (Auto) 1.07 0.00-0.02 K/uL Sodium Level 135 136-145 mmol/L Potassium Level 3.2 3.5-5.1 mmol/L Chloride Level 94 98-107 mmol/L Carbon Dioxide Level 23 21-32 mmol/L Anion Gap 18.0 3-11 mmol/L Blood Urea Nitrogen 106 7-18 mg/dl Creatinine 16.40 0.60-1.40 mg/dl Est Creatinine Clear Calc Drug Dose 5.7 ml/min Estimated GFR () 3.2 Estimated GFR (Non- 2.7 BUN/Creatinine Ratio 6.4 10-20 Random Glucose 297 70-99 mg/dl Calcium Level 8.3 8.5-10.1 mg/dl Bedside Troponin I 0.190 0-0.045 ng/ml Diagnostic Radiology 1. cxr: IMPRESSION: 1. No acute process within the chest. 2. Small nodular left perihilar density may be due to the overlapping vessels. This bears watching on future examinations. 2. venous doppler, left leg - negative for DVT 3. arterial doppler, left leg - concerning for SFA occlusion, possibly more proximal occlusion as well 4. MRI Lumbar spine - IMPRESSION: 1. Small broad-based posterior disc bulge with a small focal central disc protrusion at L4-L5 without significant central canal. 2. Small broad-based posterior disc bulge with a small focal central disc protrusion at L5-S1 which abuts but does not displace the transiting bilateral S1 nerve roots. No significant central canal narrowing. 3. Mild bilateral neural foraminal narrowing at L4-L5 and L5-S1. EKG EKG - my reading - NSR, LVH by voltage criteria, LAE; prolonged QTc I/avl with T wave inversions - old/chronic V5/V6 with mild ST depression -- a review of multiple old EKGs from the past 1- 2 years shows that most have NOT had ST depression in these 2 segments (1 prior EKG did in fact have ST depression in V5/V6) Impression Assessment and Plan 62yo male with ESRD on home peritoneal dialysis (PD), HTN, PAF, anemia 2nd to CKD, and prior heavy tobacco use presenting with severe left leg pain 2nd to an arterial occlusion, likely the SFA, leading to an ischemic left foot. 1. probable left-sided SFA occlusion with resulting ischemia to the left leg - Dr. Boyce from vascular has been urgently consulted. He has already seen him this AM and plans to take him to the OR this morning for urgent arteriogram & intervention. Will admit to ICU as there is a high likelihood of him needing a TPA infusion. Keep NPO. Will need lipids checked tomorrow for risk factor control. Control his BP. Defer antiplatelet agents to Dr. Boyce. 2. epigastric discomfort / "reflux" type symptoms - he has a mildly elevated troponin. His EKG shows anterolateral ST depression (V5/V6). Uncertain if pain/symptoms is truly GERD or from atypical chest pain/cardiac pain. Will have to assume it is cardiac until proven otherwise. Serial troponins with an additional troponin now. Continue the nitropaste, control his BP, and check an echo (last echo early 2016 showed normal LV wall motion). If there is any EKG worsening or worsening of symptoms would start systemic heparin. Have ordered IV pepcid in the ER in the event this is GERD. 3. ESRD on PD - Dr. Martinez consulted for assistance with PD. no signs of SBP or other acute renal issue. 4. hypokalemia - was already given replacement in the ER. Check mag level now. 5. HTN - uncontrolled - resume all home meds along with nitropaste. 6. chronic prednisone usage - has been taking 30-40mg of prednisone daily for 3 -4 weeks for a self-diagnosed inflammatory arthritis. Will give 60mg x 1 this am for stress dose purposes in light of #1 above. 7. hyperglycemia - check hemoglobin a1c, r/o T2DM. BSG ac/hs. Novolog correction with low threshold for basal insulin if needed. 8. DVT proph - defer until plan of care has been worked out for #1 above. 9. h/o COPD - spiriva; not active at this time. 10. anemia of CKD - H/H stable. 11. leukocytosis - could be due to prednisone; could be from stress from #1; no source of infection on exam clinically. CBC in AM. 12. acidosis on BMP - check a lactate level nowm. 13. h/o PAF - is in NSR this am. Does not take anticoagulation. Continue amiodarone. 14. FEN - NPO for pending surgery; K replace; check mag; no IVF at this time. Plan of care d/w Dr. Boyce, Dr. Martinez, and Maurizio GARZA (ICU). Level of Care Critical Care Resuscitation Status FULL RESUSCITATION VTE Prophylaxis VTE Risk Assessment Done? Y/N: Yes Risk Level: Moderate Given or contraindicated: Other Anticoagulation Note Total Time: Critical Care 30 - 74 minutes Additional Copies To Flakito Martinez M.D.
--- NOTE | 2017-08-17 08:15 | Procedure Note ---
Pre-Mod Sedation Assessment General Date of Moderate Sedation: Aug 17, 2017. Vital Signs: Vital Signs Past 12 Hours Date Time Temp Pulse Resp B/P (MAP) Pulse Ox O2 Delivery O2 Flow Rate FiO2 08/17/17 06:53 88 08/17/17 06:31 89 162/82 08/17/17 06:14 93 18 184/95 97 Nasal Cannula 3.0 08/17/17 06:02 99 18 175/85 95 Room Air 08/17/17 05:49 90 18 204/99 96 Room Air 08/17/17 05:10 91 18 187/99 95 Room Air 08/17/17 02:33 71 18 164/85 97 Room Air 08/17/17 00:36 36.8 105 18 162/82 98 Room Air Pre-Sedation Airway Assessment Smoking Status: Former Smoker (quit 3 years ago; smoked for 47 years, 1ppd) Mallampati Classification: Class I ASA Classification: Class III Notes The planned sedation has been discussed with the patient and consent obtained. I have identified the patient, determined the appropriateness of sedation and have assessed the patient immediately prior to the procedure. All medicine(s) and interventions are by my order.
[2017-08-17] MEDS ORDERED: FAMOTIDINE 20MG/5ML IV PUSH IV ONE (08:16)
[2017-08-17] MEDS ORDERED: ALBUTEROL 0.083% NEBU SOLN 3 ML VIAL INH PRN (08:30)
[2017-08-17] MEDS ORDERED: CALCIUM CARBONATE 500 MG CHEWABLE PO PRN (08:30)
[2017-08-17] MEDS ORDERED: NON-FORMULARY MEDICATION (Sucroferric Oxyhydroxide (Velphoro) 1 TAB) PO SCH (08:30)
[2017-08-17] MEDS ORDERED: ICU PROTOCOL FOR HYPERGLYCEMIA PRN (08:30)
[2017-08-17] MEDS: AMLODIPINE BESYLATE 5 MG TAB PO SCH ×2 (09:00→19:59)
[2017-08-17] MEDS: TIOTROPIUM BROMIDE 5 PUFF/90 MCG INH INH SCH (09:00)
[2017-08-17] MEDS: FLUTICASONE PROPIONATE NA SPR 16 GM BTL NAE SCH (09:00)
[2017-08-17] MEDS ORDERED: CEFAZOLIN SOD 1000MG/5 ML IV PUSH IV ONE (09:33)
[2017-08-17] MEDS ORDERED: FENTANYL CITRATE INJ 50 MCG/1 ML 2 ML VIAL IV ONE (10:08)
[2017-08-17] MEDS ORDERED: MIDAZOLAM HCL 1 MG/ML 2ML VIAL IV ONE (10:08)
[2017-08-17] MEDS ORDERED: LIDOCAINE HCL 1% 20 ML VIAL SQ ONE (10:16)
--- NOTE | 2017-08-17 10:55 | [facility] Post Operative Brief Note ---
Immediate Operative Summary Operative Date Aug 17, 2017. Pre-Operative Diagnosis Left Limb Acute Ischemia Post-Operative Diagnosis Same Procedure(s) Performed Left Lower Extremity Arteriogram, Mechanical Closure of Left Femoral artery, Moderate Sedation from [facility]8 - Surgeon Dr. Boyce [place] Historian Surgeon(s) Dr. Tyler Estimated Blood Loss 10 Findings pfa and sfa occlusion on left Specimens None Anesthesia local with sedation Complication(s) None Disposition Surgical ICU
--- NOTE | 2017-08-17 10:55 | Procedure Note ---
Post-Moderate Sedation Plan General Date of Moderate Sedation Aug 17, 2017. Vital Signs: Vital Signs Past 12 Hours Date Time Temp Pulse Resp B/P (MAP) Pulse Ox O2 Delivery O2 Flow Rate FiO2 08/17/17 09:25 36.4 91 20 171/93 97 08/17/17 09:15 36.4 89 20 165/97 96 Room Air 3.0 Nasal Cannula 08/17/17 08:51 91 20 171/93 97 08/17/17 08:31 95 20 204/131 08/17/17 08:15 191/105 08/17/17 08:01 91 19 185/101 08/17/17 07:31 93 22 158/93 08/17/17 07:01 92 17 175/93 94 08/17/17 06:53 88 08/17/17 06:51 181/99 08/17/17 06:41 165/83 08/17/17 06:31 87 13 184/90 08/17/17 06:31 89 162/82 08/17/17 06:21 162/82 08/17/17 06:14 93 18 184/95 97 Nasal Cannula 3.0 08/17/17 06:11 184/95 08/17/17 06:09 176/94 08/17/17 06:02 99 18 175/85 95 Room Air 08/17/17 06:02 175/85 08/17/17 06:01 102 21 08/17/17 05:49 90 18 204/99 96 Room Air 08/17/17 05:48 204/99 08/17/17 05:31 91 20 96 08/17/17 05:10 91 18 187/99 95 Room Air 08/17/17 05:10 187/99 08/17/17 02:33 71 18 164/85 97 Room Air 08/17/17 00:36 36.8 105 18 162/82 98 Room Air Review - Discharge Plan Post Moderate Sedation Plan: On clinical assessment, the patient appears to have tolerated the conscious sedation without complications. Patient is recovering as anticipated. Patient will continue to be monitored by nursing and may be discharged when conscious sedation discharge criteria are met.
[2017-08-17] MEDS ORDERED: IODIXANOL (VISIPAQUE) 270 MG/ML 150ML FLUSH ONE (10:57)
[2017-08-17] MEDS ORDERED: SODIUM CHLORIDE 0.9% 1000ML 1,000 ML IV SCH (10:59)
[2017-08-17] MEDS ORDERED: MoRPHine SULFATE 2 MG/ML CARP IV PRN (11:00)
--- NOTE | 2017-08-17 11:23 | DIAGNOSTIC IMAGING REPORT ---
DATE OF PROCEDURE: 08/17/2017 PREOPERATIVE DIAGNOSIS: Left lower extremity critical limb ischemia. POSTOPERATIVE DIAGNOSIS: Same. PROCEDURE: 1. Ultrasound guided right common femoral artery access. 2. Left lower extremity angiogram. 3. Percutaneous closure of right common femoral artery with StarClose device. 4. Conscious sedation for 40 minutes. SURGEON: Narciso Boyce MD. MAGNETIZER: Nicole Tyler MD. ANESTHESIA: Local plus conscious sedation. ESTIMATED BLOOD LOSS: 10. CONTRAST: 30 mL. FLUOROSCOPY TIME: 5.4 minutes. MILLIGRAYS: Low grade 109 milligrays. COMPLICATIONS: None apparent. CONDITION: Transferred to the ICU, we will need a common femoral endarterectomy and an open thrombectomy. INDICATIONS: Mr. Grullon is a 62-year-old male with multiple medical comorbidities. He states that he has had a couple week history of 100-yard claudication and now had started having rest pain this morning. He arrived to the ER with acute rest pain. Motor sensation was grossly intact. Due to new onset rest pain, he was taken to the angio suite for the above the procedure. DESCRIPTION OF PROCEDURE: The patient was brought into the operative suite. He was prepped and draped in usual fashion. A timeout occurred. Ultrasound guided access of his right common femoral artery was obtained. A 0.035 Glidewire was placed into the aorta. Over this a rim catheter was placed. The rim was used to get over the bifurcation and the wire was passed into the left common femoral artery. Unfortunately, the rim was unable to be passed over the bifurcation. The rim was removed and then a 0.035 Quick-Cross catheter was placed over the wire into the left external iliac artery. Left lower extremity angiograms were obtained via this approach. This showed a widely patent left common iliac artery, left external iliac artery. There was 50% stenosis of the left internal iliac artery. The left common femoral artery had a severe stenosis and what appeared like clot at its bifurcation. There were severe stenosis of the profunda and SFA. There was sluggish filling through both of these. Further angiogram demonstrated a patent, though slowly filling SFA and popliteal. TP trunk and peroneal artery that filled to the mid calf. At this time, it was decided that he would need a left femoral cutdown endarterectomy and thrombectomy and angiogram. Therefore, the patient was transferred to the ICU and will be booked for this case to go as soon as possible. The patient tolerated the procedure well and was transferred to the ICU in stable condition. Dr. Narciso Boyce was present for the entirety of this case.
[2017-08-17] MEDS ORDERED: SUCROFERRIC OXYHYDROXIDE PO SCH (11:25)
[2017-08-17] MEDS ORDERED: CEFAZOLIN 2000MG IV PUSH 10 ML IV SCH (12:00)
[2017-08-17] MEDS ORDERED: MoRPHine SULFATE 4 MG/ML 1 ML CARP\\VIAL IV PRN (12:00)
[2017-08-17 12:06] LABS: ESTIMATED AVERAGE GLUCOSE 154 mg/dl; HA1C FLAG Normal (Normal)
--- NOTE | 2017-08-17 12:10 | Progress Note ---
Progress Note Date of Service Aug 17, 2017. Progress Note Patient will require a left femoral artery endarterectomy. I have discussed the risks options and benefits of the procedure with the patient. The patient understands the risks options and benefits and agrees to the procedure.
[2017-08-17 12:15] LABS: MAGNESIUM 1.9 mg/dl (1.8-2.4)
[2017-08-17] MEDS ORDERED: GELATIN SPONGE SZ 100 ONE ×2 (12:37→12:38)
[2017-08-17] MEDS ORDERED: HEPARIN SOD (PORCINE) 1000 UNIT/ML 10 ML VIAL ONE ×3 (12:37→13:35)
[2017-08-17] MEDS ORDERED: BUPIVACAINE/EPINEPHRINE 0.5% MPF 1:200,000 30 ML VIAL ONE ×2 (12:37→12:38)
[2017-08-17] MEDS ORDERED: CEFAZOLIN SOD 1 GM VIAL ONE ×3 (12:37→13:35)
[2017-08-17] MEDS ORDERED: THROMBIN FOR SOLN 20000 UNIT KIT ONE (12:37)
[2017-08-17] MEDS ORDERED: LIDOCAINE HCL 1% 20 ML VIAL ONE ×2 (12:37→12:38)
[2017-08-17] MEDS ORDERED: THROMBIN 5000 UNITS KIT ONE (12:38)
[2017-08-17] MEDS ORDERED: IODIXANOL (VISIPAQUE) 270 MG/ML 50ML ONE (12:38)
[2017-08-17] MEDS ORDERED: PAPAVERINE HCL INJ 30 MG/ML 2 ML VIAL ONE (12:39)
[2017-08-17] MEDS ORDERED: MIDAZOLAM HCL 1 MG/ML 2ML VIAL ONE (12:46)
[2017-08-17] MEDS ORDERED: LIDOCAINE HCL 2% 2 ML VIAL (20MG/ML) ONE (12:51)
[2017-08-17] MEDS ORDERED: FENTANYL CITRATE INJ 50 MCG/1 ML 2 ML VIAL ONE ×2 (12:51→14:53)
[2017-08-17] MEDS ORDERED: PROMETHAZINE HCL INJ 12.5 MG in SODIUM CHLORIDE 0.9% 50ML 50 ML IV PRN (13:00)
[2017-08-17] MEDS ORDERED: FENTANYL CITRATE INJ 50 MCG/1 ML 2 ML VIAL IV PRN (13:00)
[2017-08-17] MEDS ORDERED: ONDANSETRON INJ 2 MG/ML 2 ML VIAL IV PRN (13:00)
[2017-08-17] MEDS ORDERED: EpHEDrine SULFATE INJ 50 MG/ML AMP IV PRN (13:00)
[2017-08-17] MEDS ORDERED: ATROPINE SULFATE 0.1 MG/ML 5ML SYR IV PRN (13:00)
[2017-08-17] MEDS ORDERED: ROCURONIUM BROMIDE 10 MG/ML 5 ML VIAL IV ONE (13:35)
[2017-08-17] MEDS ORDERED: PROPOFOL IV EMULSION 10 MG/ML 20 ML VIAL IV ONE (13:35)
[2017-08-17] MEDS ORDERED: WATER, STERILE FOR INJ 10 ML VIAL ONE (13:36)
[2017-08-17] MEDS ORDERED: ONDANSETRON INJ 2 MG/ML 2 ML VIAL ONE (13:42)
[2017-08-17] MEDS ORDERED: CONRAY 60% 50 ML VIAL ONE (13:56)
--- NOTE | 2017-08-17 15:04 | [facility] Post Operative Brief Note ---
Immediate Operative Summary Operative Date Aug 17, 2017. Pre-Operative Diagnosis Acute Arterial Occlusion Left Leg Post-Operative Diagnosis Acute Arterial Occlusion Left Leg Procedure(s) Performed Left Common Femoral Artery Endarterectomy with Patch and Arteriography Surgeon Dr. Boyce Plaster Whittler Surgeon(s) Dr. Nicole Tyler Estimated Blood Loss 50 ml Findings short occlusion from embolism at left NOODLE MAKER bifurcation Specimens A. Left Femoral Embolus Anesthesia Gen Complication(s) None Disposition Surgical ICU
[2017-08-17] MEDS ORDERED: D5W AND 1/2NSS 1,000 ML IV SCH (15:15)
--- NOTE | 2017-08-17 16:06 | OPERATIVE REPORT ---
DATE OF OPERATION: 08/17/2017 PREOPERATIVE DIAGNOSIS: Left lower extremity acute critical limb ischemia with new onset rest pain. POSTOPERATIVE DIAGNOSIS: Thromboembolic event to the bifurcation of the superficial femoral artery and the profunda artery. PROCEDURE: Left femoral artery cutdown, open thrombectomy, patch angioplasty with an Acuseal patch and left lower extremity angiogram. SURGEON: Dr. Narciso Boyce. PERSONNEL OFFICER: Dr. Nicole Tyler. ANESTHESIA: General endotracheal anesthesia. FLUIDS: 1.5 L. URINE OUTPUT: Not recorded. CONTRAST: 40 mL. FLUOROSCOPY TIME: 0.3 minutes, milligrays was 5 milligrays. COMPLICATIONS: None apparent. CONDITION: ____ to the ICD. INDICATIONS: Mr. Grullon is a 62-year-old male who presented this morning with acute onset of rest pain. He states this morning he was sitting in his chair and suddenly had an onset of left leg pain. He presents to ED with motor and sensory intact. He was taken for angiogram earlier today which showed what appeared to be a clot at the bifurcation of the profunda and superficial femoral artery. It was decided at that time he need to undergo a common femoral artery. He was advised the risks and benefits of undergoing this procedure and agreed to undergo this procedure. DESCRIPTION OF PROCEDURE: He was brought into the operative suite. He was prepped and draped in usual fashion. A timeout occurred. An incision was made over his left common femoral artery. This was dissected out. Control of the proximal common femoral, SFA and profunda arteries was obtained. Prior to control being obtained, the patient was given 7000 units of IV heparin. An 11 blade was then used to make a vertical arteriotomy. This was extended with Mota scissors onto the SFA. There was a small embolus seen at the bifurcation. This was removed. There was good backbleeding from the profunda and the SFA. He has diffusely calcific plaque. There was an area of loose plaque that was endarterectomized otherwise. An Acuseal patch was placed with a running stitch. The anastomosis was nearly completed when an 8-Maltese sheath was inserted through the side into the SFA. Left lower extremity angiogram was obtained. This showed the SFA was patent with diffuse calcific plaque and none of it hemodynamically significant. The popliteal artery was opened and the TP trunk was opened. The peroneal artery goes to the level of the ankle, the PT artery goes into the foot. At this time, it was decided that he had adequate flow to his foot and the sheath was removed. The patch was completed. Prior to completion of the patch, it was backbled. Hemostasis was obtained, one repair stitch was required. Once good hemostasis was obtained, the wound was closed in layers with 2-0, 3-0 and 4-0 Vicryl. The Dermabond was placed over the top of the incision. The patient had a good PT signal upon completion of the case. The patient was extubated and transferred back to the ICU in stable condition. Dr. Narciso Boyce was present and scrubbed for the entirety of this case. I attest to the content of the Intraoperative Record and any orders documented therein. Any exception s are noted below.
[2017-08-17] MEDS: HYDROmorphone INJ 1 MG/ML SYR IV PRN ×2 (16:07→16:18)
--- NOTE | 2017-08-17 16:14 | NEPHROLOGY CONSULTATION ---
DATE OF CONSULTATION: 08/17/2017 REFERRING PHYSICIAN: [facility] hospitalist service. PROBLEM: End-stage renal disease. 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 He was admitted earlier today because of evidence of ischemic disease involving his left leg. DrKatie Grullon has a longstanding history of hypertension, which he says has been controlled. He also has a history of proteinuria that was recognized about 25 years ago. In 1998 while traveling to [place], he had symptoms of an upper respiratory tract infection, which was slow to resolve. That was associated with lower extremity edema and apparent purpuric lesions of his lower extremities. He describes similar purpuric lesions in the past as well. Additionally, he has a separate history of apparent renal colic with bright red urine and severe right flank pain. He was followed by Dr. [place] over the course of the past few years. He had evidence of advanced renal failure, but resisted the idea of initiating hemodialysis. He was admitted to [facility] in October of 2016 with edema, confusion and hyperphosphatemia. His serum creatinine at that time was 23 and his hemoglobin was 6. He was begun on hemodialysis at that time. He was discharged to outpatient hemodialysis, which he received at the [facility] unit 3 times weekly. However, he continued to work on a daily basis. He commutes from [place] to [place] on a daily basis. He said that he was doing reasonably well on dialysis, but dislikes the idea of being on dialysis and asked to switch to peritoneal dialysis to better accommodate his work schedule. Along the way, there was a significant issue of patient compliance with his treatments and medications. He was readmitted to the hospital in November of 2016 with chest pain and shortness of breath. He felt his symptoms were due to bronchitis. By his description, the pain was constant, worse lying down and relieved by sitting up and leaning forward. It was felt that he might have uremic pericarditis. He was also hyperkalemic at the time of that admission. Cardiology consultation felt that his chest pain was noncardiac in nature. An echocardiogram during that hospitalization showed normal left ventricular systolic function, moderate concentric left ventricular hypertrophy and grade 1 diastolic dysfunction. He also had a small pericardial effusion. He was also noted to be in atrial fibrillation with rapid ventricular response after dialysis treatments. At that time, he was started on amiodarone and carvedilol as well as warfarin for anticoagulation. He stopped the carvedilol and amiodarone of his own accord. He said that the carvedilol made him feel lightheaded and the amiodarone gave him PVCs!. He questions whether or not he was truly in atrial fibrillation. Apparently, he continued the warfarin. He was readmitted to the [facility] in December of 2016 with a cough and shortness of breath. Prior to that admission, he felt that he had an upper respiratory tract infection. He was seen by his primary care physician, who initiated therapy with Levaquin. Per the patient, he did not have his INR checked as he was instructed to do. At the time of his admission, he was significantly hyperkalemic with a potassium of 7.1. He was significantly anemic with a hemoglobin of 6.4. His INR was supratherapeutic, levels greater than 8. He had evidence of a new large left-sided pleural effusion with collapse of the left lung. He was admitted to the ICU and intubated. A chest tube was placed and drained over 4 [address] blood[address] A CT angiogram was performed to rule out an aortic dissection, which was found not to be present. Thoracoscopy was done and further clot was evacuated from his chest. There was no obvious source of bleeding. Warfarin was discontinued. In January of 2017, he was transitioned to peritoneal dialysis. He has remained on that since that time. Currently, he dialyzes at home using [facility]. He dialyzes 7 nights a week. He uses 5 exchanges currently with a volume of 2700 mL per exchange. His dwell time is 70 minutes. He does not do any daytime or supplemental cycles. 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 Dr. Grullon seems to have his own ideas as to how his body functions. He often will initiate his own therapy. He does not follow any specific diet with regard to either salt or protein. He says that his diet is relatively rigid. He has a limited breakfast or lunch that usually consists of a [employer] sub. His dinner is limited as well. 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 More recently, he complains that he has had pain in his extremities. He says that the discomfort is in his joints, but he points to areas of muscles both in his upper and lower extremities. He says that he is stiff in the morning to the extent that he has a difficult time getting out of bed. Of his own accord, he started to take steroids. Initially, he took prednisone 40 mg daily, which he said he needed to be functional and get out of bed. He says that he is thirsty, but he has not had any significant elevations of his blood sugar when measured by a dialysis unit. His urine output has been limited. He has not had any blurred vision. Additionally, he says that he has "sores" on his legs. These have been observed to be punctate lesions. He scratches them open and then applies a steroid cream to the site!. He says that is the only way he can get relief. He describes the pain as being "excruciating" to the point that he could cry. The pain is at the site of the lesions. He also has complained of some recent discomfort in both buttocks and thighs that are associated with walking. However, that has occurred only within recent weeks and he had never mentioned it before at my visit with him. Apparently, his immediate problems seem to begin last night despite his history of some symptoms consistent with claudication in the course of the past few weeks. He drove home from work. On his way home, he had symptoms, which he describes as his symptoms of reflux. He denied having any leg pain. He ____ bottle of chocolate milk, which he drank giving him relief of his discomfort. Still, he did not feel particularly well. When he arrived at home, he followed his usual procedure of initiating his peritoneal dialysis using a cycler. Shortly after starting his dialysis, however, he developed a severe burning pain in his left calf. The pain spread to his left thigh. He said that his left leg was numb and cold, particularly from the knee to the foot. The pain became so severe that he came to the Emergency Room. In the emergency room, his left foot was noted to be ischemic. He underwent arterial and venous Dopplers. There was no evidence of DVT, but arterial Dopplers showed evidence of at least the left superficial femoral artery high-grade occlusion. Dr. Boyce was consulted. He took the patient to the vascular lab. An angiogram showed sites of atherosclerosis and stenosis that could not be approached with angioplasty. Later this afternoon, he will go back for an open procedure to relieve the obstruction to his left leg. He continues to deny having any exertional chest pains, although he does get short of breath particularly with exertion. Episodes of heartburn or indigestion are usually relieved with the use of Tums. In addition to the painful lesions that he has on his legs, he is also diagnosed himself with psoriatic arthritis. It was my impression that based on his symptoms, he was having symptoms of gout. That opinion was shared by his primary care physician. Nonetheless, with his self diagnosis, he started taking prednisone 40 mg daily about 1 month ago. He has decreased the dose to 30 mg daily. He says that he needs that to get out of bed and get to work. He has an appointment with the electrolysis engineer in the future. It is unclear as to where he got the prednisone. PAST MEDICAL HISTORY: He has a history of end-stage renal disease as noted above associated with anemia, hyperphosphatemia and hypertension. He has a history of gastrointestinal bleeding in January of 2016. A workup at that time found no obvious source of bleeding. There is a history of paroxysmal atrial fibrillation as noted above, for which he was transiently anticoagulated. He has not been in atrial fibrillation, at least it has not been noted since I have been caring for him. He also has a history of a non-ST segment elevation PA that occurred in association with his severe anemia. He has a history of the hemothorax in the left chest that was associated with the supratherapeutic levels of his INR. He has a probability of coronary artery disease. He has a history of hypertension and a history of suspected gout. He treats himself for psoriatic arthritis. PAST SURGICAL HISTORY: Placement of a peritoneal catheter. He also had a placement and subsequent removal of a tunneled hemodialysis catheter. He has had dental surgery in the past as well as evacuation of a left chest clot done fluoroscopically by Dr. Santillan. Recent left inguinal herniorrhaphy. FAMILY HISTORY: No family history of chronic renal disease. His father had hypertension, diabetes, and heart failure. His mother from lung cancer. SOCIAL HISTORY: Dick smoker. He has nearly a [id number] history of smoking. He stopped smoking about 3 years ago. He denies the regular use of alcohol. He is . He and his have 1 son. His is [place] and he frequently travels to [place]. 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 ALLERGIES: No known medication allergies. CURRENT MEDICATIONS: Zyloprim 100 mg daily (refused to increase the dose at my suggestion), hydralazine 100 mg 3 times a day, furosemide 80 mg twice a day, amlodipine 5 mg twice a day, prednisone currently in the dose of 30 mg daily, Sensipar 30 mg daily, and Velphoro 500 mg 2 tablets prescribed to be taken with each meal. His compliance with the above medications is unclear. His peritoneal dialysis schedule for his procedure to be done daily. He uses 5 cycles, each containing 2700 mL of dialysis fluid. Usually, he will use a combination of two 5-liter bags of 4.25% dialysate and one 5-liter bag of 2.5% dialysate. There are no additives to the bag. He has also used Procrit in doses sufficient to maintain his hemoglobin at about 11. His review of systems is otherwise unremarkable other than the issues noted above. OBJECTIVE: GENERAL: On physical exam when seen by me, he appeared to be lying comfortably in bed. He said that his left leg pain was better after the initial procedure done by Dr. Boyce. He will be going back to the operating room for definitive treatment. VITAL SIGNS: His temperature is normal at 36.4 degrees centigrade. His blood pressure 161/72, his pulse 85 and regular, respiratory rate 13-18 with a pulse ox of 92%-98% on 2 liters of oxygen via nasal cannula. SKIN: Shows essentially normal skin turgor. He has no obvious rash or infiltrative skin disease other than a few irritative lesions on the scalp on the right side. He has multiple punctate skin lesions on his lower extremities in various stages of healing. His feet to me do not appear to be cyanotic at this time. He has no palpable lymphadenopathy. HEAD: Normal. EYES: Grossly normal. The ocular fundi were not examined. EARS, NOSE, MOUTH AND THROAT: Unremarkable. His oral hygiene is fair. His oral mucous membranes are minimally dry. NECK: Supple. I see no obvious jugular venous distention. I hear no carotid bruit. There is no thyromegaly. CHEST: Clear to auscultation. I hear no wheezes, rales or rhonchi. CARDIAC: Shows a regular rhythm. S1 and S2 are normal. I hear no murmur or gallop. He has no rub. ABDOMEN: Shows a healing hernia incision in the left inguinal area. He has a peritoneal dialysis catheter exiting in the left lower quadrant of his abdomen. The exit site is clean and there is no tenderness over the subcutaneous tunnel. His abdomen is nontender. There is no obvious organomegaly or mass. Bowel sounds are normal. I hear no abdominal bruits. EXTREMITIES: Show no cyanosis, clubbing or peripheral edema. I can feel a right dorsalis pedis pulse, but not the right posterior tibial pulse. I cannot feel pulses in his distal left leg. Both feet are slightly cool. He has fair capillary refill in the left toes and essentially normal capillary refill in the right toes. NEUROLOGIC: Shows no obvious lateralizing changes. PERTINENT LABORATORY WORK: From early this morning showed a white count of 15,820 with 83.6% neutrophils, 4.9% lymphocytes, 4.2% monocytes, 0.1% eosinophils and 0.4% basophils. His hemoglobin was 9.4, his hematocrit 29.9, and his platelet count 218,000. His prothrombin time was 10.0 seconds with an INR of 1.0. His PTT 24.7 with a PTTR of 1.0. Clinical chemistries from this morning show a sodium of 135 mmol/L, potassium 3.2 mmol/L, chlorides 94 mmol/L, and CO2 content 23 mEq/L. His BUN is 106 and his creatinine 16.40!. His random blood sugar was 297. His serum calcium was 8.3. His troponin was 0.190 initially, rising to 0.287 subsequently. His hemoglobin A1c is 7.0. A lactic acid is 1.1. His serum magnesium 1.9 and his phosphate 11.5!. ASSESSMENT: Dr. Grullon has end-stage renal disease. I suspect that this is secondary to an IgA nephropathy. At least, his history seems consistent with that. Nonetheless, he has end-stage renal disease. He has been remarkably functional on peritoneal dialysis. It is very difficult to assess what his compliance is. Dr. Grullon seems to have his own idea with regard to how his body functions and what his symptoms may represent. Significant example of that is his interpretation that his aches and pains are from psoriatic arthritis despite the fact that he does not have any significant lesions of psoriasis. His arthritic symptoms seemed more consistent with gout. Obviously, he has atherosclerotic cardiovascular disease as witnessed by the peripheral vascular disease that he has and the suspicion that he had a non-ST segment elevation myocardial infarction in association with a severe anemia from months ago. RECOMMENDATIONS: He will be going back to the operating room for a definitive procedure to relieve obstructions to the vasculature of his left leg as outlined by Dr. Boyce. Subsequent to that, I have ordered his dialysis treatment for today. He will get peritoneal dialysis consistent with his home therapy, although I will increase his number of cycles to 6 as opposed to 5. The dialysis staff will start his peritoneal dialysis early this evening at about 07:00. I would recommend that he be continued on his usual medications for now. No other immediate recommendations, but I will probably have more as his cyclical course unfolds.
--- NOTE | 2017-08-17 16:30 | Anesthesiology Progress Note ---
Anesthesia Post Op Note Date & Time Aug 17, 2017 at 16:30 Vital Signs Pain Intensity: 6 Vital Signs Past 12 Hours Date Time Temp Pulse Resp B/P (MAP) Pulse Ox O2 Delivery O2 Flow Rate FiO2 08/17/17 16:20 79 16 163/74 95 Nasal Cannula 4 08/17/17 16:10 80 16 165/73 95 Nasal Cannula 4 08/17/17 16:00 83 16 161/71 97 Nasal Cannula 4 08/17/17 15:50 85 16 168/71 99 Oxymask 10 08/17/17 15:40 83 16 160/73 99 Oxymask 10 08/17/17 15:30 83 16 173/80 99 Oxymask 10 08/17/17 15:20 36.9 87 16 180/89 94 Oxymask 10 08/17/17 12:05 90 18 150/74 (99) 93 Nasal Cannula 2 08/17/17 11:51 85 13 161/72 (101) 98 Nasal Cannula 2 08/17/17 11:40 86 16 139/75 (96) 92 Nasal Cannula 2 08/17/17 11:20 87 20 167/79 (108) 98 Nasal Cannula 3 08/17/17 11:10 86 16 168/82 (110) 99 Nasal Cannula 08/17/17 10:56 88 16 172/90 96 Mask 4 08/17/17 10:55 88 16 172/90 96 Mask 4 08/17/17 09:25 36.4 91 20 171/93 97 08/17/17 09:15 36.4 89 20 165/97 96 Room Air 3.0 Nasal Cannula 08/17/17 08:51 91 20 171/93 97 08/17/17 08:31 95 20 204/131 08/17/17 08:15 191/105 08/17/17 08:01 91 19 185/101 08/17/17 07:31 93 22 158/93 08/17/17 07:01 92 17 175/93 94 08/17/17 06:53 88 08/17/17 06:51 181/99 08/17/17 06:41 165/83 08/17/17 06:31 87 13 184/90 08/17/17 06:31 89 162/82 08/17/17 06:21 162/82 08/17/17 06:14 93 18 184/95 97 Nasal Cannula 3.0 08/17/17 06:11 184/95 08/17/17 06:09 176/94 08/17/17 06:02 99 18 175/85 95 Room Air 08/17/17 06:02 175/85 08/17/17 06:01 102 21 08/17/17 05:49 90 18 204/99 96 Room Air 08/17/17 05:48 204/99 08/17/17 05:31 91 20 96 08/17/17 05:10 91 18 187/99 95 Room Air 08/17/17 05:10 187/99 Notes Mental Status: alert / awake / arousable, participated in evaluation Pt Amnestic to Procedure: Yes Nausea / Vomiting: adequately controlled Pain: adequately controlled, improving with treatment Airway Patency, RR, SpO2: stable & adequate BP & HR: stable & adequate Hydration State: stable & adequate Anesthetic Complications: no major complications apparent
[2017-08-17] MEDS: INSULIN ASPART 100 UNITS/ML 3 ML PEN SC SCH ×3 (17:37→21:00)
[2017-08-17] MEDS: NITROGLYCERIN OINT 2% 1GM PACKET EXT SCH ×3 (17:37→23:52)
[2017-08-17] MEDS: CEFAZOLIN IV 1,000 MG in SYRINGE 0 ML IV SCH ×2 (17:42→23:53)
[2017-08-17] MEDS: NEPHROCAPS PO SCH (17:46)
--- NOTE | 2017-08-17 18:17 | Critical Care Consultation ---
Critical Care Consultation Date of Consultation: Aug 17, 2017. Attending Physician: Flakito Doran MD Reason for Consultation: Ischemic limb, status post endarterectomy. History of Present Illness Dear : Thank you for your kind referral of Mr. Christianson to critical care service. This is 62-year-old gentleman with a history of end-stage renal disease felt to be IgA nephropathy related, currently treated with peritoneal dialysis who he manage at home, history of paroxysmal A. fib not anticoagulated due to GI bleed in January 2016, history of hemothorax left-sided evacuated by thoracic in the past. The patient presented to the hospital with left leg pain, workup revealed occlusion in the left femoral artery, the patient was taken to the OR and underwent thrombectomy of the left femoral artery. The patient brought to the ICU for further monitoring given his comorbidity. When I interviewed the patient, history of cocaine was feeling thirsty and dry throat. He denies any pain, no chest pain or abdominal pain no nausea or vomiting and no pain in his legs. He does not have any altered sensation or weakness anywhere in his body. He denies any shortness of breath, cough, heartburn, sensation of bowel movements, dysuria, no pain in his calves, dizziness or palpitation. 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[place] ) Allergies Coded Allergies: No Known Allergies (Unverified , 08/17/17) Home Medications Scheduled Allopurinol (Zyloprim), 100 MG PO QPM Amiodarone Hcl (Cordarone), 200 MG PO QPM Amlodipine (Norvasc), 5 MG PO BID B-Complex W/ C & Folic Acid (Triphrocaps), 1 CAP PO DAILY Carvedilol (Coreg), 12.5 MG PO BID Cinacalcet (Sensipar), 1 TAB PO QPM Fluticasone Propionate (Nasal) (Flonase Allergy Relief), 2 SPRAYS RAFAEL DAILY Hydralazine Hcl (Apresoline), 100 MG PO TID Magnesium Oxide (Mg Supplement (Magnesium), 500 MG PO 2XWK Prednisone (Prednisone Tab), 30 MG PO DAILY Sucroferric Oxyhydroxide (Velphoro), 1 TAB PO SNACK Sucroferric Oxyhydroxide (Velphoro), 2 TAB PO AC Tiotropium [place] (Spiriva Handihaler), 1 CAP INH DAILY Scheduled PRN Acetaminophen (Tylenol), 1,000 MG PO DIRECTED PRN for Pain Albuterol Sulfate (Proair Respiclick), 2 PUFFS INH Q4H PRN for Wheezing Calcium Carbonate (Tums), Unknown Dose PO DIRECTED PRN for Indigestion Diphenhydramine Hcl (Benadryl), 75 MG PO HS PRN for Sleep Oxycodone Ir (Roxicodone Ir), Unknown Dose PO Q4H PRN for Severe Pain Current Inpatient Medications Current Inpatient Medications Medications (Trade) Dose Ordered Sig/Aleksandra Route Start Time Stop Time Status Last Admin Dose Admin Miscellaneous (Iv Fluids Completed) 1 ea PRN PRN N/A 08/17/17 06:45 08/17/18 06:44 Nitroglycerin (Nitroglycerin 2% Oint) 1 inch Q6H EXT 08/17/17 12:00 09/16/17 11:59 08/17/17 17:44 1 INCH Ranitidine HCl (zANTac TAB) 150 mg QPM PO 08/17/17 21:00 09/16/17 20:59 Hydromorphone HCl (Dilaudid Tab) 1 mg Q3H PRN PO 08/17/17 08:30 08/31/17 08:29 Miscellaneous Information (Icu Protocol For Hyperglycemia) 1 ea PRN PRN N/A 08/17/17 08:30 08/19/17 08:29 Allopurinol (Zyloprim Tab) 100 mg QPM PO 08/17/17 21:00 09/16/17 20:59 Amiodarone HCl (Cordarone Tab) 200 mg QPM PO 08/17/17 21:00 09/16/17 20:59 Amlodipine Besylate (Norvasc Tab) 5 mg BID PO 08/17/17 09:00 09/16/17 08:59 Vitamin B Complex/ Vit C/Folic Acid (Nephrocaps) 1 cap DAILY PO 08/17/17 09:00 09/16/17 08:59 Calcium Carbonate (Tums Chew Tab) 500 mg Q4H PRN PO 08/17/17 08:30 09/16/17 08:29 Diphenhydramine HCl (Benadryl Cap) 75 mg HS PRN PO 08/17/17 08:30 09/16/17 08:29 Fluticasone Propionate (Flonase Nasal [place]) 2 sprays DAILY RAFAEL 08/17/17 09:00 09/16/17 08:59 Hydralazine HCl (Apresoline Tab) 100 mg TID PO 08/17/17 09:00 09/16/17 08:59 Prednisone (PredniSONE TAB) 60 mg DAILY PO 08/17/17 12:30 09/16/17 12:29 08/17/17 17:47 30 MG Tiotropium [place] (Spiriva Handihaler Inhaler) 1 puff DAILY INH 08/17/17 09:00 09/16/17 08:59 Albuterol Sulfate (Ventolin 0.083% 2.5MG/3ML Neb) 2.5 mg Q6R PRN INH 08/17/17 08:30 09/16/17 08:29 Insulin Aspart (novoLOG ASPART) SLIDING SCALE G... ACHS SC 08/17/17 11:00 09/16/17 10:59 Morphine Sulfate (MoRPHine SULFATE INJ) 2 mg Q2H PRN IV 08/17/17 11:00 08/31/17 10:59 Sodium Chloride 1,000 ml @ 50 mls/hr Q20H IV 08/17/17 10:59 09/16/17 10:58 Morphine Sulfate (MoRPHine SULFATE INJ) 4 mg Q2H PRN IV 08/17/17 12:00 08/31/17 11:59 Fentanyl Citrate (Fentanyl Inj) 25 mcg Q5M PRN IV 08/17/17 13:00 08/17/17 18:00 Hydromorphone HCl (Dilaudid Inj) 0.5 mg Q5M PRN IV 08/17/17 13:00 08/17/17 18:00 08/17/17 16:18 0.5 MG Ondansetron HCl (Zofran Inj) 4 mg ONE PRN IV 08/17/17 13:00 08/17/17 18:00 Promethazine HCl 12.5 mg/Sodium Chloride 50.5 ml @ 202 mls/hr ONE PRN IV 08/17/17 13:00 08/17/17 18:00 Ephedrine Sulfate (EpHEDrine SULFATE INJ) 5 mg Q5M PRN IV 08/17/17 13:00 08/17/17 18:00 Atropine Sulfate (Atropine Sulfate 0.1MG/Ml Inj) 0.5 mg Q1M PRN IV 08/17/17 13:00 08/17/17 18:00 Cefazolin Sodium 1000 mg/Syringe 5 ml @ 2.5 mls/min Q8H IV 08/17/17 16:00 08/18/17 00:01 08/17/17 17:42 2.5 MLS/MIN Heparin Sodium (Porcine) (Heparin Sq 5000 Unit/0.5ml) 5,000 unit Q8H SQ 08/17/17 20:00 09/16/17 19:59 Dextrose/Sodium Chloride 1,000 ml @ 75 mls/hr [id number] IV 08/17/17 15:15 08/18/17 04:34 08/17/17 17:41 75 MLS/HR Review of Systems Constitutional: No fever, No chills, No sweats, No weight loss, No weakness, No fatigue, No problem reported Respiratory: No cough, No sputum, No wheezing, No shortness of breath, No dyspnea on exertion, No dyspnea at rest, No hemoptysis, No problem reported Cardiovascular: No chest pain, No orthopnea, No PND, No edema, No claudication , No palpitations, No problem reported Abdomen: No pain, No nausea, No vomiting, No diarrhea, No constipation, No GI bleeding, No problem reported Musculoskeletal: + problem reported (left leg pain) Neurologic: No memory loss, No paralysis, No weakness, No numbness/tingling, No vertigo, No balance problems, No problem reported Psychiatric: No depression symptoms, No anhedonism, No anxiety, No insomnia, No substance abuse, No problem reported Allergic / Immunologic: No environmental allergies, No seasonal allergies, No pet sensitivities, No food allergies, No hives, No frequent infections, No poor healing, No prolonged convalescence, No problem reported Physical Exam Date Time Temp Pulse Resp B/P (MAP) Pulse Ox O2 Delivery O2 Flow Rate FiO2 08/17/17 16:30 36.9 86 16 170/69 95 Nasal Cannula 4 08/17/17 16:20 79 16 163/74 95 Nasal Cannula 4 08/17/17 16:10 80 16 165/73 95 Nasal Cannula 4 08/17/17 16:00 83 16 161/71 97 Nasal Cannula 4 08/17/17 15:50 85 16 168/71 99 Oxymask 10 08/17/17 15:40 83 16 160/73 99 Oxymask 10 08/17/17 15:30 83 16 173/80 99 Oxymask 10 08/17/17 15:20 36.9 87 16 180/89 94 Oxymask 10 08/17/17 12:05 90 18 150/74 (99) 93 Nasal Cannula 2 08/17/17 11:51 85 13 161/72 (101) 98 Nasal Cannula 2 08/17/17 11:40 86 16 139/75 (96) 92 Nasal Cannula 2 08/17/17 11:20 87 20 167/79 (108) 98 Nasal Cannula 3 08/17/17 11:10 86 16 168/82 (110) 99 Nasal Cannula 08/17/17 10:56 88 16 172/90 96 Mask 4 08/17/17 10:55 88 16 172/90 96 Mask 4 08/17/17 09:25 36.4 91 20 171/93 97 08/17/17 09:15 36.4 89 20 165/97 96 Room Air 3.0 Nasal Cannula 08/17/17 08:51 91 20 171/93 97 08/17/17 08:31 95 20 204/131 08/17/17 08:15 191/105 08/17/17 08:01 91 19 185/101 08/17/17 07:31 93 22 158/93 08/17/17 07:01 92 17 175/93 94 08/17/17 06:53 88 08/17/17 06:51 181/99 08/17/17 06:41 165/83 08/17/17 06:31 87 13 184/90 08/17/17 06:31 89 162/82 08/17/17 06:21 162/82 08/17/17 06:14 93 18 184/95 97 Nasal Cannula 3.0 08/17/17 06:11 184/95 08/17/17 06:09 176/94 08/17/17 06:02 99 18 175/85 95 Room Air 08/17/17 06:02 175/85 08/17/17 06:01 102 21 08/17/17 05:49 90 18 204/99 96 Room Air 08/17/17 05:48 204/99 08/17/17 05:31 91 20 96 08/17/17 05:10 91 18 187/99 95 Room Air 08/17/17 05:10 187/99 08/17/17 02:33 71 18 164/85 97 Room Air 08/17/17 00:36 36.8 105 18 162/82 98 Room Air General Appearance: well-appearing, no apparent distress Eyes: PERRLA, no discharge, EOMI ENT: normal mouth exam Neck: normal range of motion, no tenderness Respiratory: breath sounds normal, clear to auscultation Cardiovasular: regular rate/rhythm, normal S1S2, no M/G/R Abdomen: non tender, no rebound Upper Extremities: no edema Lower Extremities: no edema Pulses: brachial (L), popliteal (R) (2+), dorsalis pedis (R) (2+), dorsalis pedis (L) (2+), posterior tibial (R) (2), posterior tibial (L) (2+) Neuro: alert, oriented x 3, normal motor exam Laboratory Results Last 24 Hours Test 08/17/17 00:58 08/17/17 05:43 08/17/17 08:40 08/17/17 11:41 White Blood Count 15.82 K/uL Red Blood Count 3.09 M/uL Hemoglobin 9.4 g/dL Hematocrit 29.9 % Mean Corpuscular Volume 96.8 fL Mean Corpuscular Hemoglobin 30.4 pg Mean Corpuscular Hemoglobin Concent 31.4 g/dl Platelet Count 218 K/uL Mean Platelet Volume 9.9 fL Neutrophils (%) (Auto) 83.6 % Lymphocytes (%) (Auto) 4.9 % Monocytes (%) (Auto) 4.2 % Eosinophils (%) (Auto) 0.1 % Basophils (%) (Auto) 0.4 % Neutrophils # (Auto) 13.24 K/uL Lymphocytes # (Auto) 0.78 K/uL Monocytes # (Auto) 0.66 K/uL Eosinophils # (Auto) 0.01 K/uL Basophils # (Auto) 0.06 K/uL RDW Standard Deviation 63.5 fL RDW Coefficient of Variation 17.9 % Immature Granulocyte % (Auto) 6.8 % Immature Granulocyte # (Auto) 1.07 K/uL Sodium Level 135 mmol/L Potassium Level 3.2 mmol/L Chloride Level 94 mmol/L Carbon Dioxide Level 23 mmol/L Anion Gap 18.0 mmol/L Blood Urea Nitrogen 106 mg/dl Creatinine 16.40 mg/dl Est Creatinine Clear Calc Drug Dose 5.7 ml/min Estimated GFR () 3.2 Estimated GFR (Non- 2.7 BUN/Creatinine Ratio 6.4 Random Glucose 297 mg/dl Calcium Level 8.3 mg/dl Bedside Troponin I 0.190 ng/ml Bedside Glucose 135 mg/dl Prothrombin Time 10.0 SECONDS Prothromb Time International Ratio 1.0 Activated Partial Thromboplast Time 24.7 SECONDS Partial Thromboplastin Ratio 1.0 Estimated Average Glucose 154 mg/dl Hemoglobin A1c 7.0 % Lactic Acid Level 1.1 mmol/L Phosphorus Level 11.5 mg/dl Magnesium Level 1.9 mg/dl Troponin I 0.287 ng/ml Test 08/17/17 17:27 Diagnostic Results I have reviewed his imaging reports and review the chest x-ray personally which showed a loss of the left however the rest of his lungs are totally clear. Assessment & Plan #1 peripheral arterial disease with thrombosis of the left femoral artery status post thrombectomy with angiography. #2 chronic kidney disease on peritoneal dialysis. #3 atrial fibrillation, rate controlled not anticoagulated due to multiple episodes of bleeding including hemothorax and GI bleed in the past. #4 chronic steroids use. Secondary to psoriatic arthritis. Plan: #1 medications has been reviewed, agree with the plan. #2 when monitor in the ICU. #3 oral intake was awake and able to swallow safely. #4 peritoneal dialysis. #5 glucose control. #6 appreciate renal and vascular consults. #7 AM labs. #8 discussed the case with the staff in ICU. Critical care time spent with the patient was 35 minutes.
[2017-08-17 18:32] LABS: BUN/CREATININE RATIO 6.2 (10-20); CALCIUM 8.3 mg/dl (8.5-10.1); CREATININE 17.1 mg/dl (0.60-1.40); POTASSIUM 3.3 mmol/L (3.5-5.1)
[2017-08-17 18:36] LABS: HEPATITIS B AB POS
[2017-08-17] MEDS: HEPARIN SOD 5000 UNIT/0.5 ML CARP SQ SCH (19:57)
[2017-08-17] MEDS: HYDROmorphone HCL 2 MG TAB PO PRN (20:22)
[2017-08-17] MEDS ORDERED: AMIODARONE 200 MG TAB PO SCH (21:00)
[2017-08-17] MEDS ORDERED: ALLOPURINOL 100 MG TAB PO SCH (21:00)
[2017-08-17] MEDS ORDERED: RANITIDINE HCL 150 MG TAB PO SCH (21:00)
[2017-08-17] MEDS ORDERED: CARVEDILOL 12.5 MG TAB PO SCH (21:00)
[2017-08-18] VITALS (9 sets, daily range): BP systolic 118–152; BP diastolic 57–89; PULSE 83–96; TEMP 36.6–36.9; O2SAT 88–96
[2017-08-18] MEDS: HEPARIN SOD 5000 UNIT/0.5 ML CARP SQ SCH ×2 (04:00→11:42)
[2017-08-18 05:52] LABS: BASO % 0.1 %; BASO ABS # 0.02 K/uL (0-0.2); COMPLETE YES; HEMATOCRIT 29.4 % (42-52); IG% 3.6 %; LYMPH % 2.9 %; LYMPH ABS # 0.43 K/uL (1.2-3.4); MEAN CELL VOLUME 96.7 fL (80-100); MEAN CORPUSCULAR HEMOGLOBIN 29.9 pg (25-34); MEAN PLATELET VOLUME 9.3 fL (7.4-10.4); MONO % 2.7 %; NEUT % 90.7 %; PLATELET COUNT 170 K/uL (130-400); RED BLOOD COUNT 3.04 M/uL (4.7-6.1)
[2017-08-18] MEDS: NITROGLYCERIN OINT 2% 1GM PACKET EXT SCH ×2 (06:02→11:42)
[2017-08-18 06:41] LABS: BUN/CREATININE RATIO 5.9 (10-20); CALCIUM 8.3 mg/dl (8.5-10.1); CHOLESTEROL/HDL RATIO 2.7; CREATININE 16.2 mg/dl (0.60-1.40); POTASSIUM 3.4 mmol/L (3.5-5.1)
--- NOTE | 2017-08-18 08:56 | ECHOCARDIOGRAM REPORT ---
*NOTICE TO RECEIVING [employer] This information is strictly Confidential and protected under [place] law. [place] law prohibits you from making any further disclosure of this information unless further disclosure is expressly permitted by the written consent of the person to whom it pertains or is authorized by law. A general authorization for the release of medical or other information is not sufficient for this purpose. Hospital accepts no responsibility if the information is made available to any other person, INCLUDING THE PATIENT. Interpretation Summary * Name: EDUARDO CHAVARRIA Study Date: 08/18/2017 06:28 AM BP: 171/93 mmHg * [facility] HR: 91 * : 1955 (M/d/yyyy) Gender: Male Height: 70 in * Age: 62 yrs Ethnicity: [place] Weight: 233 lb * Ordering Physician: Flakito Doran * Performed By: Irina Pratt RDCS * * Reason For Study: CHEST PAIN, ESPINO * BSA: 2.2 m2 * -- Conclusions -- * The left ventricular cavity is small. * The left ventricular wall motion is normal. * Ejection Fraction = 65-70%. * The posterior mitral valve leaflet and annulus is diffusely thickened with a large 1.5-2.0 cm mass or vegetation on the left ventricular side prolapsing into the left atrium. * The aortic valve leaflets are moderately thickened, Vegetaton not seen but not excluded. Procedure Details * A complete two-dimensional transthoracic echocardiogram was performed (2D, M-mode, Doppler and color flow Doppler). * A contrast injection of Definity was performed to improve assessment of LV function. * Contrast was injected into an intravenous site in the right arm. * One vial of Definity ultrasound contrast was diluted in normal saline to a total volume of 10 ml. A total of '3' ml of solution was administered during imaging. * Lot # [id number] of Definity utilized for procedure. * Expiration date 10/24. Left Ventricle * The left ventricular cavity is small. * There is severe concentric left ventricular hypertrophy. * Left ventricular systolic function is normal. * Ejection Fraction = 65-70%. * The left ventricular wall motion is normal. Right Ventricle * The right ventricle is normal in size and function. Atria * The left atrial size is normal. * Right atrial size is normal. * No ASD detected; PFO is not assessed. Mitral Valve * The posterior mitral valve leaflet and annulus is diffusely thickened with a large 1.5-2.0 cm mass or vegetation on the left ventricular side prolapsing into the left atrium. * There is no mitral valve stenosis. * There is trace mitral regurgitation. Tricuspid Valve * The tricuspid valve is not well visualized, but is grossly normal. * There is no tricuspid stenosis. * There is trace tricuspid regurgitation. Aortic Valve * The aortic valve is trileaflet. * The aortic valve leaflets are moderately thickened, Vegetaton not seen but not excluded. * No hemodynamically significant valvular aortic stenosis. * No aortic regurgitation is present. Pulmonic Valve * The pulmonic valve is not well visualized. Great Vessels * The aortic root is normal size. Pericardium/Pleural * There is no pericardial effusion. Great Vessels * Normal inferior vena cava diameter and respiratory variation suggests normal central venous pressure. Left Ventricular Diastolic Function * Grade I diastolic dysfunction, (abnormal relaxation pattern). MMode 2D Measurements and Calculations IVSd 1.8 cm IVSs 2.3 cm LVIDd 4.8 cm LVIDs 3.4 cm LVPWd 1.3 cm LVPWs 1.9 cm IVS/LVPW 1.4 FS 29.8 % EDV(Teich) 107.3 ml ESV(Teich) 46.3 ml EF(Teich) 56.9 % EDV(cubed) 110.3 ml ESV(cubed) 38.1 ml EF(cubed) 65.4 % % IVS thick 28.9 % % LVPW thick 51.9 % LV mass(C)d 317.6 grams LV mass(C)dI 142.6 grams/m\S\2 LV mass(C)s 341.1 grams LV mass(C)sI 153.2 grams/m\S\2 SV(Teich) 61.0 ml SI(Teich) 27.4 ml/m\S\2 SV(cubed) 72.2 ml SI(cubed) 32.4 ml/m\S\2 ACS 1.1 cm asc Aorta Diam 2.8 cm LVOT diam 2.3 cm LVOT area 4.2 cm\S\2 LVAd ap4 36.3 cm\S\2 LVLd ap4 8.1 cm EDV(MOD-sp4) 129.7 ml EDV(sp4-el) 137.5 ml LVAs ap4 17.2 cm\S\2 LVLs ap4 6.3 cm ESV(MOD-sp4) 39.9 ml ESV(sp4-el) 40.1 ml EF(MOD-sp4) 69.2 % EF(sp4-el) 70.9 % LVAd ap2 29.1 cm\S\2 LVLd ap2 8.1 cm EDV(MOD-sp2) 85.3 ml EDV(sp2-el) 88.7 ml LVAs ap2 15.0 cm\S\2 LVLs ap2 7.1 cm ESV(MOD-sp2) 26.4 ml ESV(sp2-el) 26.8 ml EF(MOD-sp2) 69.1 % EF(sp2-el) 69.8 % LVLd %diff -0.43 % EDV(MOD-bp) 106.3 ml LVLs %diff 11.9 % ESV(MOD-bp) 34.3 ml EF(MOD-bp) 67.7 % SV(MOD-sp4) 89.7 ml SI(MOD-sp4) 40.3 ml/m\S\2 SV(MOD-sp2) 58.9 ml SI(MOD-sp2) 26.5 ml/m\S\2 SV(MOD-bp) 72.0 ml SI(MOD-bp) 32.3 ml/m\S\2 SV(sp4-el) 97.4 ml SI(sp4-el) 43.7 ml/m\S\2 SV(sp2-el) 62.0 ml SI(sp2-el) 27.8 ml/m\S\2 Doppler Measurements and Calculations MV E max violet 51.9 cm/sec MV A max violet 112.5 cm/sec MV E/A 0.46 MV dec time 0.14 sec Ao V2 max 163.9 cm/sec Ao max PG 10.7 mmHg Ao max PG (full) 7.7 mmHg NENITA(V,A) 2.3 cm\S\2 NNEITA(V,D) 2.3 cm\S\2 LV V1 max PG 3.1 mmHg LV V1 max 87.7 cm/sec PA V2 max 111.1 cm/sec PA max PG 4.9 mmHg
[2017-08-18] MEDS: TIOTROPIUM BROMIDE 5 PUFF/90 MCG INH INH SCH (09:05)
[2017-08-18] MEDS: AMLODIPINE BESYLATE 5 MG TAB PO SCH (09:06)
[2017-08-18] MEDS: NEPHROCAPS PO SCH (09:06)
[2017-08-18] MEDS: FLUTICASONE PROPIONATE NA SPR 16 GM BTL NAE SCH (09:06)
[2017-08-18] MEDS: HYDROmorphone HCL 2 MG TAB PO PRN (09:06)
[2017-08-18] MEDS ORDERED: NURSING VERBAL MED ORDER ONE (09:15)
[2017-08-18] MEDS: INSULIN ASPART 100 UNITS/ML 3 ML PEN SC SCH ×2 (09:22→11:00)
--- NOTE | 2017-08-18 09:42 | Progress Note ---
Subjective Date of Service: Aug 18, 2017. Subjective Pt evaluation today including: conversation w/ patient, physical exam, chart review, lab review, review of studies (echo), conversation w/ desktop support consultant ( vasculary surgery, cardiology, nephrology, ICU), review of inpatient medication list Pain: none reported; LLE pain resolved PO Intake: eating fine tele stable overnight feels much better - left leg pain resolved; numbness just about resolved no new complaints asks questions about "what caused this?" Problem List Medical Problems: (1) Abnormal EKG Status: Acute (2) Altered mental status Status: Acute (3) Anemia Status: Acute (4) Anemia Status: Acute (5) ARF (acute renal failure) Status: Acute (6) Chest wall pain Status: Acute (7) Electrocardiogram showing T wave abnormalities Status: Acute (8) Hyperkalemia Status: Acute (9) Pancreatitis Status: Acute (10) Pericardial effusion without cardiac tamponade Status: Acute (11) Pleural effusion, left Status: Acute (12) Renal failure Status: Acute (13) Supratherapeutic INR Status: Acute (14) Upper GI bleed Status: Acute Review of Systems Constitutional: No fever, No chills Respiratory: No shortness of breath Cardiac: No chest pain Abdomen: No pain Objective Vital Signs Date Time Temp Pulse Resp B/P (MAP) Pulse Ox O2 Delivery O2 Flow Rate FiO2 08/18/17 08:28 36.6 93 14 129/65 (86) 08/18/17 06:00 90 16 118/68 (85) 94 Room Air 08/18/17 04:00 36.6 84 14 129/59 (82) 95 Nasal Cannula 2.0 08/18/17 04:00 95 Nasal Cannula 2.0 08/18/17 02:00 84 16 137/61 (86) 95 Nasal Cannula 2.0 08/18/17 00:00 95 Nasal Cannula 2.0 08/18/17 00:00 36.7 83 16 129/62 (84) 96 Nasal Cannula 2.0 08/17/17 23:00 84 15 87 Room Air 08/17/17 21:35 93 17 145/68 (93) 91 08/17/17 21:30 79 10 92 08/17/17 21:15 80 11 94 Room Air 08/17/17 21:00 82 22 95 08/17/17 20:45 79 14 94 12/13/17 20:31 79 11 132/57 (82) 91 08/17/17 20:30 77 10 92 08/17/17 20:16 36.6 78 13 134/67 (89) 94 Nasal Cannula 2.0 08/17/17 20:15 79 12 94 08/17/17 20:01 76 17 136/73 (94) 93 08/17/17 20:00 79 10 94 08/17/17 19:45 36.9 143/71 (95) 08/17/17 19:43 Nasal Cannula 2.0 08/17/17 19:27 98 Nasal Cannula 2.0 08/17/17 19:16 84 19 143/71 (95) 99 08/17/17 19:05 84 13 91 Nasal Cannula 2.0 08/17/17 19:01 76 22 147/68 (94) 97 08/17/17 18:59 78 15 144/65 (91) 98 Nasal Cannula 2.0 08/17/17 18:50 81 10 98 08/17/17 18:46 79 22 144/65 (91) 98 Nasal Cannula 2.0 08/17/17 18:35 80 20 90 08/17/17 18:31 76 15 141/57 (85) 98 Nasal Cannula 2.0 08/17/17 18:20 82 15 97 08/17/17 18:16 78 10 160/70 (100) 97 Nasal Cannula 2.0 08/17/17 18:14 36.6 81 16 163/74 97 Nasal Cannula 2.0 08/17/17 18:05 84 12 93 08/17/17 18:01 79 15 167/72 (103) 93 Nasal Cannula 2.0 08/17/17 17:50 79 15 95 08/17/17 17:46 78 10 156/64 (94) 96 Nasal Cannula 2.0 08/17/17 17:35 78 15 08/17/17 17:20 83 27 96 Nasal Cannula 2.0 08/17/17 17:16 83 18 141/85 (103) 100 08/17/17 17:05 82 21 92 08/17/17 17:01 36.6 82 8 163/74 (103) 90 Nasal Cannula 2.0 08/17/17 16:30 36.9 86 16 170/69 95 Nasal Cannula 4 08/17/17 16:20 79 16 163/74 95 Nasal Cannula 4 08/17/17 16:10 80 16 165/73 95 Nasal Cannula 4 08/17/17 16:00 83 16 161/71 97 Nasal Cannula 4 08/17/17 15:50 85 16 168/71 99 Oxymask 10 08/17/17 15:40 83 16 160/73 99 Oxymask 10 08/17/17 15:30 83 16 173/80 99 Oxymask 10 08/17/17 15:20 36.9 87 16 180/89 94 Oxymask 10 08/17/17 12:05 90 18 150/74 (99) 93 Nasal Cannula 2 08/17/17 11:51 85 13 161/72 (101) 98 Nasal Cannula 2 08/17/17 11:40 86 16 139/75 (96) 92 Nasal Cannula 2 08/17/17 11:20 87 20 167/79 (108) 98 Nasal Cannula 3 08/17/17 11:10 86 16 168/82 (110) 99 Nasal Cannula 08/17/17 10:56 88 16 172/90 96 Mask 4 08/17/17 10:55 88 16 172/90 96 Mask 4 Physical Exam General Appearance: no apparent distress ENT: pharynx normal Neck: no JVD Respiratory/Chest: lungs clear, no respiratory distress, no accessory muscle use Cardiovascular: regular rate, rhythm, no gallop, no murmur Abdomen: normal bowel sounds, non tender, soft, no organomegaly, + pertinent finding (PD catheter clean) Extremities: no pedal edema, + pertinent finding (pulses, left foot, 1-2+; foot now warm and NOT dusky as opposed to yesterday's exam) Neurologic/Psychiatric: alert, oriented x 3 Skin: + pertinent finding (groin, b/l, no hematoma seen ) Laboratory Results Last 24 Hours Test 08/17/17 11:41 08/17/17 17:26 08/17/17 17:27 08/17/17 21:07 Prothrombin Time 10.0 SECONDS Prothromb Time International Ratio 1.0 Activated Partial Thromboplast Time 24.7 SECONDS Partial Thromboplastin Ratio 1.0 Estimated Average Glucose 154 mg/dl Hemoglobin A1c 7.0 % Lactic Acid Level 1.1 mmol/L Phosphorus Level 11.5 mg/dl Magnesium Level 1.9 mg/dl Troponin I 0.287 ng/ml 0.360 ng/ml Bedside Glucose 88 mg/dl 181 mg/dl Sodium Level 137 mmol/L Potassium Level 3.3 mmol/L Chloride Level 96 mmol/L Carbon Dioxide Level 22 mmol/L Anion Gap 19.0 mmol/L Blood Urea Nitrogen 105 mg/dl Creatinine 17.10 mg/dl Est Creatinine Clear Calc Drug Dose 5.5 ml/min Estimated GFR () 3.0 Estimated GFR (Non- 2.6 BUN/Creatinine Ratio 6.2 Random Glucose 82 mg/dl Calcium Level 8.3 mg/dl Hepatitis B Surface Antigen NEG Hepatitis B Surface Antibody POS Test 08/18/17 00:14 08/18/17 05:39 08/18/17 09:25 Troponin I 0.296 ng/ml White Blood Count 14.60 K/uL Red Blood Count 3.04 M/uL Hemoglobin 9.1 g/dL Hematocrit 29.4 % Mean Corpuscular Volume 96.7 fL Mean Corpuscular Hemoglobin 29.9 pg Mean Corpuscular Hemoglobin Concent 31.0 g/dl Platelet Count 170 K/uL Mean Platelet Volume 9.3 fL Neutrophils (%) (Auto) 90.7 % Lymphocytes (%) (Auto) 2.9 % Monocytes (%) (Auto) 2.7 % Eosinophils (%) (Auto) 0.0 % Basophils (%) (Auto) 0.1 % Neutrophils # (Auto) 13.23 K/uL Lymphocytes # (Auto) 0.43 K/uL Monocytes # (Auto) 0.39 K/uL Eosinophils # (Auto) 0.00 K/uL Basophils # (Auto) 0.02 K/uL RDW Standard Deviation 63.0 fL RDW Coefficient of Variation 17.8 % Immature Granulocyte % (Auto) 3.6 % Immature Granulocyte # (Auto) 0.53 K/uL Sodium Level 136 mmol/L Potassium Level 3.4 mmol/L Chloride Level 98 mmol/L Carbon Dioxide Level 24 mmol/L Anion Gap 14.0 mmol/L Blood Urea Nitrogen 96 mg/dl Creatinine 16.20 mg/dl Est Creatinine Clear Calc Drug Dose 5.6 ml/min Estimated GFR () 3.2 Estimated GFR (Non- 2.8 BUN/Creatinine Ratio 5.9 Random Glucose 200 mg/dl Calcium Level 8.3 mg/dl Triglycerides Level 64 mg/dl Cholesterol Level 161 mg/dl HDL Cholesterol 59 mg/dl LDL Cholesterol, Calculated 89 mg/dl VLDL Cholesterol, Calculated 13 mg/dl Cholesterol/HDL Ratio 2.7 Assessment and Plan 62yo male with ESRD on home peritoneal dialysis (PD), HTN, PAF, anemia 2nd to CKD, and prior heavy tobacco who presented with severe left leg pain 2nd to an arterial occlusion in the left femoral artery leading to an ischemic left foot. 1. left common femoral artery occlusion with resulting ischemia to the left leg - POD #1, s/p arteriogram with endarterectomy by Dr. Boyce. Circulation to left leg/foot restored; symptoms resolved. Dr. Boyce commented that the occlusion appeared acutely embolic. Echo reviewed with Dr. Simons from cardiology - has large mitral valve vegetation. This is the likely source for his embolus. Will obtain 2 sets of blood cultures; check sed rate/crp; would start vanco and rocephin IV to cover for possible endocarditis. Libman-sacks endocarditis would also be a possibility. 2. epigastric discomfort / "reflux" type symptoms - resolved. Unclear if this was due to GERD or ischemic/anginal equivalent. Either way symptoms are resolved. Cont H2 edith. 3. ESRD on PD - Dr. Martinez consulted for assistance with PD. no signs of SBP or other acute renal issue. 4. mitral valve vegetation - see above. 5. HTN - improved control with institution of home meds. 6. chronic prednisone usage - has been taking 30-40mg of prednisone daily for 3 -4 weeks for a self-diagnosed inflammatory arthritis. Gave 60mg yesterday and this AM for stress dose purposes in light of #1 above. Wean to 40mg tomorrow. 7. hyperglycemia - a1c c/w T2DM. He was informed of this lab result. Change diet to T2DM/renal. 8. DVT proph - defer until plan of care has been worked out for #1 above. 9. h/o COPD - spiriva; not active at this time. 10. anemia of CKD - H/H stable. 11. leukocytosis - could be due to prednisone; could be from stress from #1; no source of infection on exam clinically. Blood cx's to be drawn. 12. h/o PAF - is in NSR this am once again. Does not take anticoagulation. Continue amiodarone. 13. Positive troponin - he had lateral ST changes on EKG yesterday. He has chronic ESPINO with walking 30 feet. In the future I believe he will need an ischemic evaluation. The acute troponin rise is likely demand ischemia in setting of #1, however. Follow. care d/w Dr. Simons, cardiology; Dr. Sheppard, nephrology; KAYLA Doherty - ICU
[2017-08-18] MEDS ORDERED: VANCOMYCIN INJ 1,000 MG in SODIUM CHLORIDE 0.9% 250ML 250 ML IV STA (10:21)
[2017-08-18] MEDS ORDERED: VANCOMYCIN INJ 1,750 MG in SODIUM CHLORIDE 0.9% 500ML 500 ML IV STA (10:44)
[2017-08-18] MEDS ORDERED: CEFTRIAXONE SOD INJ 2,000 MG in DEXTROSE 5% 50ML 50 ML IV SCH (11:00)
--- NOTE | 2017-08-18 11:00 | Discharge Summary ---
Discharge Summary Date of Service Aug 18, 2017. Discharge Summary Admission Date: Aug 17, 2017 at 08:27 Discharge Date: Aug 18, 2017 Discharge Disposition: Acute care facility ([facility] - accepting physician: Dr. Ronak Hood) Principal Diagnosis: acute left-sided common femoral artery occlusion likely due to embolus Problems/Secondary Diagnoses: other acute problems addressed - 1. large mitral valve vegetation/mass - etiology uncertain 2. epigastric/chest pain - resolved 3. positive troponin - likely myocardial demand ischemia 4. hypokalemia 5. hyperglycemia - new diagnosis of T2DM chronic medical issues - 1. ESRD on home PD - followed by Dr. Tommy Martinez 2. anemia of CKD 3. GI bleeding - January 2016 - EGD/colonoscopy at that time, no source found ( polyps only) 4. HTN 5. h/o paroxysmal a. fib - no longer on anticoagulation 6. h/o type 2 NSTEMI in setting of severe anemia 7. h/o left-side hemothorax in setting of coumadin use s/p hemothorax evacuation by Dr. Nathaniel Santillan 8. CAD (per records, but denies h/o heart cath) - primary cardiology Dr. Raffi Jaime ([facility]) 9. HTN 10. gout? 11. psoriatic arthritis? (self-diagnosed by patient due to chronic rash & joint pains) Procedures: 1. cxr: IMPRESSION: 1. No acute process within the chest. 2. Small nodular left perihilar density may be due to the overlapping vessels. This bears watching on future examinations. 2. venous doppler, left leg - negative for DVT 3. arterial doppler, left leg - concerning for SFA occlusion, possibly more proximal occlusion as well 4. MRI Lumbar spine - IMPRESSION: 1. Small broad-based posterior disc bulge with a small focal central disc protrusion at L4-L5 without significant central canal. 2. Small broad-based posterior disc bulge with a small focal central disc protrusion at L5-S1 which abuts but does not displace the transiting bilateral S1 nerve roots. No significant central canal narrowing. 3. Mild bilateral neural foraminal narrowing at L4-L5 and L5-S1. 5. Left Common Femoral Artery Endarterectomy with Patch and Arteriography - Dr. Narciso Boyce 6. echocardiogram - -- Conclusions -- * The left ventricular cavity is small. * The left ventricular wall motion is normal. * Ejection Fraction = 65-70%. * The posterior mitral valve leaflet and annulus is diffusely thickened with a large 1.5-2.0 cm mass or vegetation on the left ventricular side prolapsing into the left atrium. * The aortic valve leaflets are moderately thickened, Vegetaton not seen but not excluded. Consultations: 1. vascular surgery - Narciso Boyce MD 2. critical care - Aristides Caputo MD 3. nephrology - Tommy Martinez MD 4. cardiology - Manjeet Simons MD Discharge Exam Physical Exam: General Appearance: no apparent distress ENT: pharynx normal Neck: no JVD Respiratory/Chest: lungs clear, no respiratory distress, no accessory muscle use Cardiovascular: regular rate, rhythm, no gallop, no murmur Abdomen / GI: normal bowel sounds, non tender, soft, no organomegaly, + pertinent finding (PD catheter in place, clean/intact/no drainage or erythema) Extremities: no pedal edema, + pertinent finding (left foot warm, pulses 1-2 +, duskiness/cyanosis resolved ) Neurologic/Psychiatric: alert, oriented x 3 Skin: + pertinent finding (b/l groin - no hematoma from prior vascular procedures) Hospital Course HISTORY OF PRESENT ILLNESS: 62yo male with ESRD on home peritoneal dialysis (PD), HTN, PAF, anemia 2nd to CKD, and prior heavy tobacco who presented with severe left leg pain 2nd to an arterial occlusion in the left femoral artery leading to an ischemic left foot. HOSPITAL COURSE: 1. left common femoral artery occlusion with resulting ischemia to the left leg - Shortly after admission the patient was taken emergently to the vascular OR where he underwent arteriogram by Dr. Narciso Boyce. This showed that the left common femoral artery had a severe stenosis and clot at its bifurcation. There were severe stenoses of the profunda and SFA as well. At that time Dr. Boyce recommended cut down with endarterectomy. This was performed a short time later. The endarterectomy was uncomplicated. Dr. Boyce did confirm that the occlusion appeared embolic in nature. Following the procedure he had successful mormon of circulation to left leg /foot and his symptoms resolved. On POD #1 the patient underwent 2D echocardiogram demonstrating a large mitral valve vegetation/mass. This was felt to represent the source of his arterial occlusion/embolus. Dr. Manjeet Simons from [facility] was consulted who recommended transfer to tertiary care. Concurrently blood cultures were drawn and he was given a dose of rocephin & vancomycin to cover for the possibility of infective endocarditis. 2. epigastric discomfort / "reflux" type symptoms - these occurred just prior to ER presentation as well as while he was waiting for admission in the ER. It was unclear if this was due to GERD or ischemic/anginal equivalent. Either way symptoms his symptoms resolved prior to going to the OR for his arteriogram. He did not have recurrent symptoms for the remainder of his stay. See "troponin " section below for additional information. 3. ESRD on PD - Dr. Martinez was consulted for assistance with PD. He had no signs of SBP while hospitalized. 4. mitral valve vegetation - see above. 5. HTN - he had improved control with institution of his home meds. 6. chronic prednisone usage - the patient had been taking 30-40mg of prednisone daily for 3-4 weeks for a self-diagnosed inflammatory arthritis prior to this admission. It was unclear who had prescribed this or if he had prescribed it himself. He received 60mg on hospital days #1/2 for stress dose purposes in light of #1 above. Recommend weaning upon transfer to [facility] depending on his clinical course. 7. hyperglycemia - hemoglobin a1c was 7% c/w T2DM. He was informed of this lab result. 8. h/o COPD - no symptoms during his stay. 9. anemia of CKD - H/H stable during his stay. 10. leukocytosis - could be due to prednisone; could be from stress from #1; no source of infection on exam clinically. Blood cx's were drawn prior to transfer to [facility]. 11. h/o PAF - was in NSR during his stay. He does not take chronic anticoagulation. Continue amiodarone. 12. Positive troponin - he had lateral ST changes on EKG at time of ER presentation. He reported chronic ESPINO with walking 30 feet. In the future I believe he will need an ischemic evaluation. Echo showed normal LV wall motion. The acute troponin rise was likely demand ischemia in setting of #1, however. Peak troponin was 0.3 while here. Current Inpatient Medications Medications (Trade) Dose Ordered Sig/Aleksandra Route Start Time Stop Time Status Last Admin Dose Admin Miscellaneous (Iv Fluids Completed) 1 ea PRN PRN N/A 08/17/17 06:45 08/17/18 06:44 Nitroglycerin (Nitroglycerin 2% Oint) 1 inch Q6H EXT 08/17/17 12:00 09/16/17 11:59 08/18/17 06:02 1 INCH Ranitidine HCl (zANTac TAB) 150 mg QPM PO 08/17/17 21:00 09/16/17 20:59 08/17/17 19:59 150 MG Hydromorphone HCl (Dilaudid Tab) 1 mg Q3H PRN PO 08/17/17 08:30 08/31/17 08:29 08/18/17 09:06 1 MG Miscellaneous Information (Icu Protocol For Hyperglycemia) 1 ea PRN PRN N/A 08/17/17 08:30 08/19/17 08:29 Allopurinol (Zyloprim Tab) 100 mg QPM PO 08/17/17 21:00 09/16/17 20:59 08/17/17 19:58 100 MG Amiodarone HCl (Cordarone Tab) 200 mg QPM PO 08/17/17 21:00 09/16/17 20:59 08/17/17 19:58 200 MG Amlodipine Besylate (Norvasc Tab) 5 mg BID PO 08/17/17 09:00 09/16/17 08:59 08/18/17 09:06 5 MG Vitamin B Complex/ Vit C/Folic Acid (Nephrocaps) 1 cap DAILY PO 08/17/17 09:00 09/16/17 08:59 08/18/17 09:06 1 CAP Calcium Carbonate (Tums Chew Tab) 500 mg Q4H PRN PO 08/17/17 08:30 09/16/17 08:29 Diphenhydramine HCl (Benadryl Cap) 75 mg HS PRN PO 08/17/17 08:30 09/16/17 08:29 Fluticasone Propionate (Flonase Nasal [place]) 2 sprays DAILY RAFAEL 08/17/17 09:00 09/16/17 08:59 08/18/17 09:06 2 SPRAYS Hydralazine HCl (Apresoline Tab) 100 mg TID PO 08/17/17 09:00 09/16/17 08:59 08/18/17 09:06 100 MG Tiotropium [place] (Spiriva Handihaler Inhaler) 1 puff DAILY INH 08/17/17 09:00 09/16/17 08:59 08/18/17 09:05 1 PUFF Albuterol Sulfate (Ventolin 0.083% 2.5MG/3ML Neb) 2.5 mg Q6R PRN INH 08/17/17 08:30 09/16/17 08:29 Insulin Aspart (novoLOG ASPART) SLIDING SCALE G... ACHS SC 08/17/17 11:00 09/16/17 10:59 08/18/17 09:22 2 UNITS Morphine Sulfate (MoRPHine SULFATE INJ) 2 mg Q2H PRN IV 08/17/17 11:00 08/31/17 10:59 Morphine Sulfate (MoRPHine SULFATE INJ) 4 mg Q2H PRN IV 08/17/17 12:00 08/31/17 11:59 Heparin Sodium (Porcine) (Heparin Sq 5000 Unit/0.5ml) 5,000 unit Q8H SQ 08/17/17 20:00 09/16/17 19:59 08/18/17 04:00 5,000 UNIT Prednisone (PredniSONE TAB) 40 mg DAILY PO 08/19/17 09:00 09/16/17 12:29 Ceftriaxone Sodium 2000 mg/ Dextrose 70 ml @ 100 mls/hr ONE STAT IV 08/18/17 10:21 08/18/17 11:02 UNV Vancomycin HCl 1000 mg/Sodium Chloride 270 ml @ 125 mls/hr NOW STAT IV 08/18/17 10:21 08/18/17 12:30 UNV 08/17/17 00:58 Red Blood Count 3.09, Mean Corpuscular Volume 96.8, Mean Corpuscular Hemoglobin 30.4, Mean Corpuscular Hemoglobin Concent 31.4, Mean Platelet Volume 9.9, Neutrophils (%) (Auto) 83.6, Lymphocytes (%) (Auto) 4.9, Monocytes (%) (Auto) 4.2, Eosinophils (%) (Auto) 0.1, Basophils (%) (Auto) 0.4, Neutrophils # (Auto) 13.24, Lymphocytes # (Auto) 0.78, Monocytes # (Auto) 0.66, Eosinophils # (Auto) 0.01, Basophils # (Auto) 0.06 08/18/17 05:39 Red Blood Count 3.04, Mean Corpuscular Volume 96.7, Mean Corpuscular Hemoglobin 29.9, Mean Corpuscular Hemoglobin Concent 31.0, Mean Platelet Volume 9.3, Neutrophils (%) (Auto) 90.7, Lymphocytes (%) (Auto) 2.9, Monocytes (%) (Auto) 2.7, Eosinophils (%) (Auto) 0.0, Basophils (%) (Auto) 0.1, Neutrophils # (Auto) 13.23, Lymphocytes # (Auto) 0.43, Monocytes # (Auto) 0.39, Eosinophils # (Auto) 0.00, Basophils # (Auto) 0.02 08/17/17 00:58 08/17/17 17:27 08/18/17 05:39 Test 08/17/17 00:58 08/17/17 05:43 08/17/17 08:40 08/17/17 11:41 White Blood Count 15.82 K/uL (4.8-10.8) Red Blood Count 3.09 M/uL (4.7-6.1) Hemoglobin 9.4 g/dL (14.0-18.0) Hematocrit 29.9 % (42-52) Mean Corpuscular Volume 96.8 fL (80-100) Mean Corpuscular Hemoglobin 30.4 pg (25-34) Mean Corpuscular Hemoglobin Concent 31.4 g/dl (32-36) Platelet Count 218 K/uL (130-400) Mean Platelet Volume 9.9 fL (7.4-10.4) Neutrophils (%) (Auto) 83.6 % Lymphocytes (%) (Auto) 4.9 % Monocytes (%) (Auto) 4.2 % Eosinophils (%) (Auto) 0.1 % Basophils (%) (Auto) 0.4 % Neutrophils # (Auto) 13.24 K/uL (1.4-6.5) Lymphocytes # (Auto) 0.78 K/uL (1.2-3.4) Monocytes # (Auto) 0.66 K/uL (0.11-0.59) Eosinophils # (Auto) 0.01 K/uL (0-0.5) Basophils # (Auto) 0.06 K/uL (0-0.2) RDW Standard Deviation 63.5 fL (36.4-46.3) RDW Coefficient of Variation 17.9 % (11.5-14.5) Immature Granulocyte % (Auto) 6.8 % Immature Granulocyte # (Auto) 1.07 K/uL (0.00-0.02) Anion Gap 18.0 mmol/L (3-11) Est Creatinine Clear Calc Drug Dose 5.7 ml/min Estimated GFR () 3.2 Estimated GFR (Non- 2.7 BUN/Creatinine Ratio 6.4 (10-20) Calcium Level 8.3 mg/dl (8.5-10.1) Bedside Troponin I 0.190 ng/ml (0-0.045) Bedside Glucose 135 mg/dl (70-99) Prothrombin Time 10.0 SECONDS (9.0-12.0) Prothromb Time International Ratio 1.0 (0.9-1.1) Activated Partial Thromboplast Time 24.7 SECONDS (21.0-31.0) Partial Thromboplastin Ratio 1.0 Estimated Average Glucose 154 mg/dl Hemoglobin A1c 7.0 % (4.5-5.6) Lactic Acid Level 1.1 mmol/L (0.4-2.0) Phosphorus Level 11.5 mg/dl (2.5-4.9) Magnesium Level 1.9 mg/dl (1.8-2.4) Troponin I 0.287 ng/ml (0-0.045) Test 08/17/17 17:26 08/17/17 17:27 08/17/17 21:07 08/18/17 00:14 Bedside Glucose 88 mg/dl (70-99) 181 mg/dl (70-99) Anion Gap 19.0 mmol/L (3-11) Est Creatinine Clear Calc Drug Dose 5.5 ml/min Estimated GFR () 3.0 Estimated GFR (Non- 2.6 BUN/Creatinine Ratio 6.2 (10-20) Calcium Level 8.3 mg/dl (8.5-10.1) Troponin I 0.360 ng/ml (0-0.045) 0.296 ng/ml (0-0.045) Hepatitis B Surface Antigen NEG (NEG) Hepatitis B Surface Antibody POS Test 08/18/17 05:39 08/18/17 09:53 White Blood Count 14.60 K/uL (4.8-10.8) Red Blood Count 3.04 M/uL (4.7-6.1) Hemoglobin 9.1 g/dL (14.0-18.0) Hematocrit 29.4 % (42-52) Mean Corpuscular Volume 96.7 fL (80-100) Mean Corpuscular Hemoglobin 29.9 pg (25-34) Mean Corpuscular Hemoglobin Concent 31.0 g/dl (32-36) Platelet Count 170 K/uL (130-400) Mean Platelet Volume 9.3 fL (7.4-10.4) Neutrophils (%) (Auto) 90.7 % Lymphocytes (%) (Auto) 2.9 % Monocytes (%) (Auto) 2.7 % Eosinophils (%) (Auto) 0.0 % Basophils (%) (Auto) 0.1 % Neutrophils # (Auto) 13.23 K/uL (1.4-6.5) Lymphocytes # (Auto) 0.43 K/uL (1.2-3.4) Monocytes # (Auto) 0.39 K/uL (0.11-0.59) Eosinophils # (Auto) 0.00 K/uL (0-0.5) Basophils # (Auto) 0.02 K/uL (0-0.2) RDW Standard Deviation 63.0 fL (36.4-46.3) RDW Coefficient of Variation 17.8 % (11.5-14.5) Immature Granulocyte % (Auto) 3.6 % Immature Granulocyte # (Auto) 0.53 K/uL (0.00-0.02) Anion Gap 14.0 mmol/L (3-11) Est Creatinine Clear Calc Drug Dose 5.6 ml/min Estimated GFR () 3.2 Estimated GFR (Non- 2.8 BUN/Creatinine Ratio 5.9 (10-20) Calcium Level 8.3 mg/dl (8.5-10.1) Triglycerides Level 64 mg/dl (0-150) Cholesterol Level 161 mg/dl (0-200) HDL Cholesterol 59 mg/dl LDL Cholesterol, Calculated 89 mg/dl VLDL Cholesterol, Calculated 13 mg/dl Cholesterol/HDL Ratio 2.7 Erythrocyte Sedimentation Rate 86 mm/hr (0-14) C-Reactive Protein 9.13 mg/dl (0-0.29) Date/Time Source Procedure Growth Status 08/17/17 00:00 Nasal MRSA DNA Surveillance Screen - Final Specimen Negative for MRSA by DNA Probe Complete I would like to thank Dr. Ronak Hood for accepting this patient in transfer to [facility] for ongoing care. Flakito Doran MD, [facility] Hospitalist Total Time Spent: Greater than 30 minutes This includes examination of the patient, discharge planning, medication reconciliation, and communication with other providers. Discharge Instructions Please refer to the electronic Patient Visit Report (Discharge Instructions) for additional information. Follow-Up to be determined after hospitalization at [facility] Additional Copies To Deven Jaime D.O.; Flakito Martinez M.D.; Manjeet Simons M.D.; Narciso Boyce M.D.
--- NOTE | 2017-08-18 11:30 | CARDIOLOGY CONSULTATION ---
DATE OF CONSULTATION: 08/18/2017 REFERRING PHYSICIAN: Dr. Doran. INDICATIONS: Embolic arterial occlusion of the left leg, abnormal echocardiogram with mass on mitral valve. HISTORY OF PRESENT ILLNESS: The patient is a 62-year-old male whose history is notable for: 1. End-stage renal disease approximately 1 year's duration, treated with hemodialysis x3 months and then currently on peritoneal dialysis for approximately 6 months. 2. History of paroxysmal atrial fibrillation, controlled in sinus rhythm with combination of amiodarone and carvedilol. 3. Hypertension, hypertensive heart disease. 4. Atherosclerotic peripheral vascular disease. The patient is referred today after having been admitted to [facility] on 08/17/2017 with acute onset severe left leg pain and catheterization with cold sensation in the foot. He was evaluated and was ultimately taken to the operating room, where he underwent thrombectomy of the left femoral artery. The patient, in the course of evaluation today underwent echocardiography, study demonstrating moderate to severe left ventricular hypertrophy with hyperdynamic LV function, the mitral valve posterior annulus leaflet was severely thickened with visible mass of 1.5-2 cm left ventricular side prolapsing into the left atrium. The aortic valve leaflets are moderately thickened. Differential diagnosis includes a large vegetation on the mitral valve leaflet versus mass with associated embolic phenomena. The patient on examination currently denies any recent fevers or chills. He has been self medicating himself with prednisone due to concerns regarding diffuse arthralgias and inflammatory skin lesions for several weeks in duration with relatively high dose prednisone 30-60 mg per day. He has been performing peritoneal dialysis. Notes no acute changes on his dialysis. Weight has been stable. He is not aware of fevers or chills. Notes no acute neurologic complaints. Notes no headache or visual changes. Does have dental issues with loose tooth. No overt drainage. Notes no melena, hematochezia, dysuria or hematuria. Appetite has generally been good. Notes no overt claudication until signs or symptoms of the left leg pain has developed. Notes no current chest pains. Notes no tachypalpitations, syncope or near syncope. ALLERGIES: None. MEDICATIONS: Prior to hospitalization were albuterol inhaler 2 puffs q. 4 hours, allopurinol 100 mg p.m., amiodarone 200 mg q.p.m., amlodipine 5 mg twice per day, B complex with folic acid 1 capsule per day, calcium carbonate chews, carvedilol 12.5 mg b.i.d., Sensipar 30 mg q.p.m., diphenhydramine 25 mg p.r.n. sleep, Flonase nasal spray, hydralazine 100 mg t.i.d., Mag-Ox 500 mg 2 times per week, oxycodone q. 4 hours p.r.n. pain, prednisone 30 mg p.o. daily, Velphoro 500 mg 2 tablets a.c. and 1 additional and Spiriva inhaler. PAST SURGICAL HISTORY: Notable for inguinal herniorrhaphy and past peritoneal dialysis catheter insertion. FAMILY HISTORY: Not specifically notable for cardiac disease. 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 He is a prior smoker with [id number] history, discontinued 6 years prior. Has a history of past heavy alcohol use, but discontinued in 2006 by his own description. PHYSICAL EXAMINATION: VITAL SIGNS: Heart rate is 93 in sinus rhythm. Blood pressure is 129/65. HEENT: Normocephalic, atraumatic. Nares without discharge. Throat was clear. Mouth notes only fair dentition with loose tooth in the front. LUNGS: Generally clear to auscultation. CARDIOVASCULAR: Regular with less than grade 1/6 systolic murmur. There is no diastolic murmur. PMI is nondisplaced. ABDOMEN: Soft. No distinct tenderness. There is a peritoneal dialysis catheter in place. EXTREMITIES: Without cyanosis or clubbing. The patient has puncture sites from an arteriogram on the right groin, left endarterectomy, femoral thrombectomy scar on the right without drainage. There are intact pulses at 1/4 bilaterally. There is no edema. SKIN: The patient has multiple small exacerbated skin lesions, excoriated. LABORATORY AND IMAGING DATA: Echocardiogram as per HPI demonstrates moderate to severe left ventricular hypertrophy with hyperdynamic LV function. There is a 1.5-2 cm very mobile mass attached to a very thickened mitral valve leaflet and annulus prolapsing from the left ventricular side into left atrium. There is trace to 1+ mitral insufficiency. There is trace tricuspid insufficiency. The aortic valve leaflets also appeared thickened, but were not well visualized, vegetation not excluded. Chest x-ray on admission demonstrated no acute processes. White cell count on presentation was 15.8, hemoglobin 11.4. Sed rate is pending. Sodium is 136, potassium is 3.4, chloride is 98, BUN is 96, and creatinine is 16.2. Cholesterol is 161, LDL 89, HDL 59. IMPRESSION AND PLAN: A 62-year-old male with end-stage renal disease, possibly hypertensive mediated; history of past paroxysmal atrial fibrillation, presents with a several month history diffuse arthralgias and inflammatory skin lesions with self medicating with prednisone, presented last night with episode of thromboembolic phenomena of the left femoral artery and status post acute surgical thrombectomy. Echocardiogram today demonstrates a large mobile mass on the mitral valve, highly suspicious for endocarditis versus myxomatous growth, likely endocarditis given clinical history on presentation. Cultures have been drawn. I have discussed with patient and recommended transfer to tertiary care facility, given embolic phenomenon. The patient did receive cefazolin prior to surgery last night and prior to cultures being drawn this morning. We will attempt to discern whether the lesion was extracted thrombus was sent for pathology. Discussed findings in detail, arrangements have been made to transfer to [facility] for REZA and surgical evaluation. ____ MTDD
--- NOTE | 2017-08-18 11:49 | PROGRESS NOTE ---
DATE: 08/18/2017 SUBJECTIVE: Mattissa says that he is feeling better today. He has some minimal numbness on the lateral aspect of his left foot, which he says has been a chronic problem that he had always associated with wearing tight shoes. However, the discomfort that he had that led to this hospitalization is dramatically improved after his surgery yesterday. He has no obvious symptoms of uremia or volume overload. After his overnight dialysis, his blood pressure is obviously well controlled. He denies lightheadedness or dizziness. As noted in other notes, it appears as if at least part of the occlusion noted at the left common femoral artery appeared to be embolic in nature. A subsequent echocardiogram showed a large vegetation on the mitral valve. He has no other immediate symptoms including no neurologic symptoms or problems. 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 VITAL SIGNS: He remains afebrile. His blood pressure 129/65, his pulse 93 and regular, respiratory rate 14, his pulse ox 94%-96% on room air. A single reading of 87% was noted overnight. SKIN: His skin shows normal skin turgor. He has a few punctate areas that appear to be minimal folliculitis over his skin of the thorax and to a lesser extent on his arms and legs. His a peritoneal catheter exit site appears to be clean. Skin turgor is normal. His incision site in the left groin appears clean. LYMPHATICS: Show no palpable adenopathy. HEAD: Normal. EYES: Grossly normal. The ocular fundi were not examined. EARS, NOSE, MOUTH AND THROAT: Unremarkable. His dentition is in fair to poor repair and his oral hygiene is fair. NECK: Supple. There is no obvious jugular venous distention. There is no carotid bruit. There is no thyromegaly. CHEST: Clear to auscultation. There are no wheezes, rales or rhonchi. CARDIAC: Shows a regular rhythm. S1 and S2 are normal. He does have a grade 1/6 systolic murmur heard at the apex in the anterior axillary line, but not heard elsewhere in his chest. He has no diastolic murmurs. There is no friction rub or gallop. ABDOMEN: Shows his hernia scar, which is well healed. The exit site of his peritoneal catheter is clean. His abdomen is soft and nontender. There is no organomegaly or mass. EXTREMITIES: Show no cyanosis, clubbing or peripheral edema. I do feel the dorsalis pedis pulse bilaterally, but not posterior tibial pulses. Capillary refill is normal. He has no ischemic changes. NEUROLOGIC: Shows no obvious lateralizing changes. LABORATORY STUDIES: His intake and output shows that yesterday his output exceeded his intake by 7655 mL, almost all of which was the result of his overnight peritoneal dialysis. Laboratory work from today shows a white count of 14,600 with 90.7% neutrophils, 2.9% lymphocytes, 2.7% monocytes and no eosinophils. He has 0.1% basophils. His hemoglobin 9.1, hematocrit 29.4, his platelet count 170,000. Clinical chemistries from today show a sodium of 136 mmol/L, potassium 3.4 mmol/L, chloride 98 mmol/L, and CO2 content 24 mmol/L. His BUN is 96, his creatinine is 16.20. A random blood sugar is 200. His serum calcium 8.3, his total cholesterol 161, triglycerides 64, his LDL cholesterol 89 and his HDL cholesterol 55. Sedimentation rate and C-reactive protein are pending. 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 We did remove a significant amount of fluid overnight and his blood pressure has returned to normal. His BUN and creatinine dropped somewhat, but less might be expected. He has a large vegetation on his mitral valve. In a sense he is likely that this embolized to his leg and not to his brain. Whether or not the lesion is bacterial or from another source is difficult to say. Certainly, any symptoms of subacute bacterial endocarditis related to an infection might have been masked by his overzealous use of steroids. He has been scratching wounds open on his legs and then covering them with steroids to get relief of his discomfort. He also has relatively poor dentition either the skin or his mouth might have been the source of a bacterial seeding of his mitral valve. A noninfectious mass on his mitral valve could be related to an underlying vasculitis or antiphospholipid syndrome (Libman-Sacks endocarditis). RECOMMENDATIONS: He will be transferred to the [facility] presumably today for further cardiac evaluation and recommendations for treatment. Certainly, my previous notes, which include his dialysis orders should be forwarded with the information sent. The [facility] nephrology group can certainly call me if they need information with regard to his dialysis orders.
[2017-08-18] MEDS ORDERED: PRED20TA2 PO (12:04)
[2017-08-18] MEDS ORDERED: NTRO1 EXT (12:04)
--- NOTE | 2017-08-18 16:37 | Critical Care Progress Note ---
Critical Care Progress Note Date of Service Aug 18, 2017. Attending Dr. Caputo Subjective The patient is feeling better today, he did claim that he has been having episodes of itching in several parts of his body accompanied also with nonspecific and vague pain with swelling of his joints which was not obvious objectively. The patient has been treating himself with steroids as an outpatient. He is very opinionated about his management. Objective No events overnight, perfusion to the left leg appeared to be back to normal, he had good capillary filling, and positive pulses in all 4 distal arteries. No pain is reported. No nausea or vomiting. Denies any palpitation or chest pain as well. Assessment & Plan #1 peripheral arterial disease status post thrombectomy left femoral artery. #2 chronic kidney disease on peritoneal dialysis. #3 possible autoimmune disease in which the patient has been treated with prednisone. No records of the diagnosis itself. #4 history of GI bleeding. #5 history of hemothorax. #6 history of paroxysmal A. fib, rate controlled and not anticoagulated. Plan: #[address] Simons input from cardiology. The patient underwent an echocardiogram which showed vegetation on the mitral valve measuring approximately 1.5 cm. In that regard evaluation at tertiary care center was recommended and the patient transferred to [facility]. #[address] Doran with the start of ceftriaxone and vancomycin to treat endocarditis. #3 DVT and GI prophylaxis. #4 surgical sites appears clean. #5 no further recommendations from critical care standpoint. The case discussed over on balance with the staff. Critical care time spent with the patient was 35 minutes. Consults & Procedures Consultants: Vascular and ICU. Procedures: Femoral artery endarterectomy. Data I & O: 24-Hour Column 08/19/17 07:59 Intake Total 44933 ml Output Total 80624 ml Balance -7130 ml Vital Signs: Date Time Temp Pulse Resp B/P (MAP) Pulse Ox O2 Delivery O2 Flow Rate FiO2 08/18/17 12:00 Room Air 08/18/17 12:00 36.9 96 20 152/89 (110) 96 Room Air 08/18/17 11:18 36.6 87 15 93 Room Air 08/18/17 10:00 87 15 123/57 (79) 93 Room Air 08/18/17 08:28 36.6 93 14 129/65 (86) 08/18/17 08:00 36.8 89 15 129/65 (86) 88 Room Air 08/18/17 08:00 Room Air 08/18/17 06:00 90 16 118/68 (85) 94 Room Air 08/18/17 04:00 36.6 84 14 129/59 (82) 95 Nasal Cannula 2.0 08/18/17 04:00 95 Nasal Cannula 2.0 08/18/17 02:00 84 16 137/61 (86) 95 Nasal Cannula 2.0 08/18/17 00:00 95 Nasal Cannula 2.0 08/18/17 00:00 36.7 83 16 129/62 (84) 96 Nasal Cannula 2.0 08/17/17 23:00 84 15 87 Room Air 08/17/17 21:35 93 17 145/68 (93) 91 08/17/17 21:30 79 10 92 08/17/17 21:15 80 11 94 Room Air 08/17/17 21:00 82 22 95 08/17/17 20:45 79 14 94 08/17/17 20:31 79 11 132/57 (82) 91 08/17/17 20:30 77 10 92 08/17/17 20:16 36.6 78 13 134/67 (89) 94 Nasal Cannula 2.0 08/17/17 20:15 79 12 94 08/17/17 20:01 76 17 136/73 (94) 93 08/17/17 20:00 79 10 94 08/17/17 19:45 36.9 143/71 (95) 08/17/17 19:43 Nasal Cannula 2.0 08/17/17 19:27 98 Nasal Cannula 2.0 08/17/17 19:16 84 19 143/71 (95) 99 08/17/17 19:05 84 13 91 Nasal Cannula 2.0 08/17/17 19:01 76 22 147/68 (94) 97 08/17/17 18:59 78 15 144/65 (91) 98 Nasal Cannula 2.0 08/17/17 18:50 81 10 98 08/17/17 18:46 79 22 144/65 (91) 98 Nasal Cannula 2.0 08/17/17 18:35 80 20 90 08/17/17 18:31 76 15 141/57 (85) 98 Nasal Cannula 2.0 08/17/17 18:20 82 15 97 08/17/17 18:16 78 10 160/70 (100) 97 Nasal Cannula 2.0 08/17/17 18:14 36.6 81 16 163/74 97 Nasal Cannula 2.0 08/17/17 18:05 84 12 93 08/17/17 18:01 79 15 167/72 (103) 93 Nasal Cannula 2.0 08/17/17 17:50 79 15 95 08/17/17 17:46 78 10 156/64 (94) 96 Nasal Cannula 2.0 08/17/17 17:35 78 15 08/17/17 17:20 83 27 96 Nasal Cannula 2.0 08/17/17 17:16 83 18 141/85 (103) 100 08/17/17 17:05 82 21 92 08/17/17 17:01 36.6 82 8 163/74 (103) 90 Nasal Cannula 2.0 Laboratory Results: Last 24 Hours Test 08/17/17 17:26 08/17/17 17:27 08/17/17 21:07 08/18/17 00:14 Bedside Glucose 88 mg/dl 181 mg/dl Sodium Level 137 mmol/L Potassium Level 3.3 mmol/L Chloride Level 96 mmol/L Carbon Dioxide Level 22 mmol/L Anion Gap 19.0 mmol/L Blood Urea Nitrogen 105 mg/dl Creatinine 17.10 mg/dl Est Creatinine Clear Calc Drug Dose 5.5 ml/min Estimated GFR () 3.0 Estimated GFR (Non- 2.6 BUN/Creatinine Ratio 6.2 Random Glucose 82 mg/dl Calcium Level 8.3 mg/dl Troponin I 0.360 ng/ml 0.296 ng/ml Hepatitis B Surface Antigen NEG Hepatitis B Surface Antibody POS Test 08/18/17 05:39 08/18/17 09:53 08/18/17 11:49 White Blood Count 14.60 K/uL Red Blood Count 3.04 M/uL Hemoglobin 9.1 g/dL Hematocrit 29.4 % Mean Corpuscular Volume 96.7 fL Mean Corpuscular Hemoglobin 29.9 pg Mean Corpuscular Hemoglobin Concent 31.0 g/dl Platelet Count 170 K/uL Mean Platelet Volume 9.3 fL Neutrophils (%) (Auto) 90.7 % Lymphocytes (%) (Auto) 2.9 % Monocytes (%) (Auto) 2.7 % Eosinophils (%) (Auto) 0.0 % Basophils (%) (Auto) 0.1 % Neutrophils # (Auto) 13.23 K/uL Lymphocytes # (Auto) 0.43 K/uL Monocytes # (Auto) 0.39 K/uL Eosinophils # (Auto) 0.00 K/uL Basophils # (Auto) 0.02 K/uL RDW Standard Deviation 63.0 fL RDW Coefficient of Variation 17.8 % Immature Granulocyte % (Auto) 3.6 % Immature Granulocyte # (Auto) 0.53 K/uL Sodium Level 136 mmol/L Potassium Level 3.4 mmol/L Chloride Level 98 mmol/L Carbon Dioxide Level 24 mmol/L Anion Gap 14.0 mmol/L Blood Urea Nitrogen 96 mg/dl Creatinine 16.20 mg/dl Est Creatinine Clear Calc Drug Dose 5.6 ml/min Estimated GFR () 3.2 Estimated GFR (Non- 2.8 BUN/Creatinine Ratio 5.9 Random Glucose 200 mg/dl Calcium Level 8.3 mg/dl Triglycerides Level 64 mg/dl Cholesterol Level 161 mg/dl HDL Cholesterol 59 mg/dl LDL Cholesterol, Calculated 89 mg/dl VLDL Cholesterol, Calculated 13 mg/dl Cholesterol/HDL Ratio 2.7 Erythrocyte Sedimentation Rate 86 mm/hr C-Reactive Protein 9.13 mg/dl
== END 2017-08-18 14:51 | disposition short-term general hospital (02) | DRG 252 ==
LOC: EDBD 00:31 → C.EDB 00:33 → ENRESERV 06:15 → CANRESERV 06:15 → CANBEDREQ 06:22 → C.MSICU 08:27 → EDBEDREQ 08:40 → ENRESERV 08:50
PROVIDERS: ADMIT Internal Medicine; ATTEND Internal Medicine
PROC: B41GYZZ Fluoroscopy of Left Lower Extremity Arteries using Other Contrast (ICD-10-PCS; principal; 2017-08-17 08:00)
PROC: 04CL0Z6 (ICD-10-PCS; principal; 2017-08-17 08:00)
PROC: 04UL0JZ Supplement Left Femoral Artery with Synthetic Substitute, Open Approach (ICD-10-PCS; principal; 2017-08-17 08:00)
DX: I74.3 Embolism and thrombosis of arteries of the lower extremities (principal); I33.0 Acute and subacute infective endocarditis; N18.6 End stage renal disease; I12.0 Hypertensive chronic kidney disease with stage 5 chronic kidney disease or end stage renal disease; E87.2 Acidosis; I24.8 Other forms of acute ischemic heart disease; I99.8 Other disorder of circulatory system; I25.10 Atherosclerotic heart disease of native coronary artery without angina pectoris; R07.89 Other chest pain; K21.9 Gastro-esophageal reflux disease without esophagitis; E87.6 Hypokalemia; E11.65 Type 2 diabetes mellitus with hyperglycemia; E11.22 Type 2 diabetes mellitus with diabetic chronic kidney disease; E11.51 Type 2 diabetes mellitus with diabetic peripheral angiopathy without gangrene; I48.0 Paroxysmal atrial fibrillation; J44.9 Chronic obstructive pulmonary disease, unspecified; D63.1 Anemia in chronic kidney disease; D72.829 Elevated white blood cell count, unspecified; M10.9 Gout, unspecified; Z99.2 Dependence on renal dialysis; I25.2 Old myocardial infarction; Z86.010 Personal history of colon polyps; Z87.19 Personal history of other diseases of the digestive system; Z87.891 Personal history of nicotine dependence; Z79.52 Long term (current) use of systemic steroids; Z79.899 Other long term (current) drug therapy; Z83.3 Family history of diabetes mellitus; Z82.49 Family history of ischemic heart disease and other diseases of the circulatory system; Z80.1 Family history of malignant neoplasm of trachea, bronchus and lung

== ENCOUNTER 2017-08-29 20:29 | Emergency (ER) | payer OTHER ==
[~2017-08-29] VITALS: Ht 177.8 cm; Wt 94.0 kg
[~2017-08-29 20:29] MED LIST changes: +ACET-1256 PO; +ALBU18002 INH; -B-CO1CAP17 PO; +B-COCAP28 PO; +CALC500C3 PO; +FLUT0.15 NAE; -FURO80TA63 PO; +MAGN500C PO; -MAGNESIUM PO; +NTRO1 EXT; +OXYC1TAB3 PO; -PRED10TA PO; +PRED20TA2 PO; +SPRIN/30 INH; -VNTHFA/IN INH
[2017-08-29 20:32] VITALS: TEMP 36.8; Ht 177.8 cm; Wt 94.0 kg
--- NOTE | 2017-08-29 21:00 | EMERGENCY ROOM VISIT NOTE ---
History Report prepared by Donell: Iain Conn Under the Supervision of: Dr. Daryl Richey M.D. First contact with patient: 20:40 Chief Complaint: BLEEDING Stated Complaint: HEMATURIA, RECTAL- S/P SURGERY- COUMADIN History of Present Illness The patient is a 62 year old male who presents to the Emergency Room with complaints of constant bleeding beginning today. The patient states that he was recently given Coumadin and aspirin to take following a valve replacement. He notes that the Coumadin has given him bloody urine, bloody stool, blood under his skin, and blood in his dialysate. He reports that when he has a bowel movement, there is bright red in the toilet and on the toilet paper. He denies any CP, SOB, dizziness, and nausea. The patient states that he is not on any antibiotics. Source of History: patient Onset: today Position: other (global) Quality: other (bleeding) Timing: constant Associated Symptoms: + urinary symptoms (bloody urine), No chest pain, No SOB, No nausea Note: He also complains of bloody stool, blood under his skin, and blood in his dialysate. He denies any dizziness. Review of Systems See HPI for pertinent positives & negatives. A total of 10 systems reviewed and were otherwise negative. Past Medical & Surgical Medical Problems: (1) Anemia due to chronic kidney disease (2) Chest pain (3) ESRD (end stage renal disease) (4) GI bleed (5) Hemothorax on left (6) HTN (hypertension) (7) Hyperkalemia (8) Hypertensive urgency (9) Ischemic foot (10) Ischemic rest pain of lower extremity (11) Loculated pleural effusion (12) NSTEMI (non-ST elevated myocardial infarction) Surgical Problems: (1) H/O colonoscopy (2) Heart valve replaced (3) History of dental surgery (4) History of esophagogastroduodenoscopy (EGD) (5) [place] teeth extracted Family History Diabetes mellitus FATHER FH: CHF (congestive heart failure) FATHER Hypertension FATHER Social History Smoking Status: Former Smoker Alcohol Use: occasionally Drug Use: none Marital Status: Housing Status: lives with significant other Occupation Status: employed Current/Historical Medications Scheduled Amiodarone Hcl (Cordarone), 200 MG PO QPM Amlodipine (Norvasc), 5 MG PO BID Aspirin (Aspirin Ec), 81 MG PO BID B-Complex W/ C & Folic Acid (Triphrocaps), 1 CAP PO DAILY Cinacalcet (Sensipar), 30 MG PO QPM Magnesium Oxide (Mg Supplement (Magnesium), 500 MG PO 2XWK Sucroferric Oxyhydroxide (Velphoro), 500 MG PO UD Sucroferric Oxyhydroxide (Velphoro), 1,000 MG PO AC Tiotropium [place] (Spiriva Handihaler), 1 CAP INH DAILY Warfarin Sod (Coumadin), 2.5 MG PO DAILY Scheduled PRN Acetaminophen (Tylenol), 1,000 MG PO UD PRN for Pain Calcium Carbonate (Tums), 500 MG PO UD PRN for Indigestion Diphenhydramine Hcl (Benadryl), 75 MG PO HS PRN for Sleep Fluticasone Propionate (Nasal) (Flonase Allergy Relief), 2 SPRAYS RAFAEL DAILY PRN for Allergy Symptoms Hydrocortisone 1% (Hydrocortisone 1%), 1 APPLN TOP BID PRN for Skin Sores Allergies Coded Allergies: No Known Allergies (Unverified , 08/17/17) Physical Exam Vital Signs Date Time Temp Pulse Resp B/P (MAP) Pulse Ox O2 Delivery O2 Flow Rate FiO2 08/29/17 23:00 108 18 115/72 95 08/29/17 21:31 104 18 109/60 08/29/17 21:09 98 Room Air 08/29/17 20:52 103 08/29/17 20:32 36.8 94 18 117/84 95 Room Air Physical Exam GENERAL: Patient is chronically unwell appearing and in mild distress, anxious appearing. HEENT: No acute trauma, normocephalic atraumatic, mucous membranes moist, no nasal congestion, no scleral icterus. NECK: No stridor, no adenopathy, no meningismus, trachea is midline. LUNGS: No dyspnea. Clear to auscultation and equal bilaterally. No wheeze, no rhonchi. HEART: Regular rhythm and tachycardic. No murmurs, rubs, gallops appreciated. CHEST: Healing sternotomy scar without evidence of infection. ABDOMEN: Soft, nontender, no masses appreciated, no peritonitis. Mildly distended abdomen, distant bowel sounds, dialysis port in place. BACK: No midline tenderness, no CVA tenderness EXTREMITIES: Normal motion all extremities, no cyanosis, no edema. NEUROLOGIC: Alert and oriented, no acute motor or sensory deficits, no focal weakness, cranial nerves grossly intact. SKIN: No rash, no jaundice, no diaphoresis. Extensive bruising over many areas of body, worse over left thigh and groin. RECTAL: Scant brown bloody stool in rectal vault, heme positive. Medical Decision & Procedures ER Provider Diagnostic Interpretation: Radiology results and stated below per my review and radiologist interpretation: CHEST ONE VIEW PORTABLE FINDINGS: Median sternotomy wires and prosthetic valve now in place, likely prosthetic mitral valve. The cardiac silhouette remains enlarged. Mildly low lung volumes. Few bandlike opacities at the lung bases. Trace left pleural effusion may be present. No pneumothorax. Osseous structures normal. Upper abdomen normal. IMPRESSION: 1. Postsurgical changes of sternotomy wire and valve replacement. 2. Cardiomegaly. 3. Bibasilar atelectasis suspected. 4. Trace left pleural effusion. Electronically signed by: Carter Gongora M.D. 08/29/2017 9:19 PM Laboratory Results 08/29/17 21:04 Red Blood Count 2.78, Mean Corpuscular Volume 95.0, Mean Corpuscular Hemoglobin 29.5, Mean Corpuscular Hemoglobin Concent 31.1, Mean Platelet Volume 10.5, Neutrophils (%) (Auto) 66.5, Lymphocytes (%) (Auto) 10.6, Monocytes (%) (Auto) 11.3, Eosinophils (%) (Auto) 1.2, Basophils (%) (Auto) 0.5, Neutrophils # (Auto ) 7.38, Lymphocytes # (Auto) 1.18, Monocytes # (Auto) 1.25, Eosinophils # (Auto ) 0.13, Basophils # (Auto) 0.05 08/29/17 21:04 Test 08/29/17 21:04 White Blood Count 11.09 K/uL (4.8-10.8) Red Blood Count 2.78 M/uL (4.7-6.1) Hemoglobin 8.2 g/dL (14.0-18.0) Hematocrit 26.4 % (42-52) Mean Corpuscular Volume 95.0 fL (80-100) Mean Corpuscular Hemoglobin 29.5 pg (25-34) Mean Corpuscular Hemoglobin Concent 31.1 g/dl (32-36) Platelet Count 129 K/uL (130-400) Mean Platelet Volume 10.5 fL (7.4-10.4) Neutrophils (%) (Auto) 66.5 % Lymphocytes (%) (Auto) 10.6 % Monocytes (%) (Auto) 11.3 % Eosinophils (%) (Auto) 1.2 % Basophils (%) (Auto) 0.5 % Neutrophils # (Auto) 7.38 K/uL (1.4-6.5) Lymphocytes # (Auto) 1.18 K/uL (1.2-3.4) Monocytes # (Auto) 1.25 K/uL (0.11-0.59) Eosinophils # (Auto) 0.13 K/uL (0-0.5) Basophils # (Auto) 0.05 K/uL (0-0.2) RDW Standard Deviation 62.3 fL (36.4-46.3) RDW Coefficient of Variation 18.8 % (11.5-14.5) Immature Granulocyte % (Auto) 9.9 % Immature Granulocyte # (Auto) 1.10 K/uL (0.00-0.02) Nucleated RBC Absolute Count (auto) 0.18 K/uL (0-0) Nucleated Red Blood Cells % 1.6 % Anisocytosis PRESENT Prothrombin Time 28.1 SECONDS (9.0-12.0) Prothromb Time International Ratio 2.7 (0.9-1.1) Activated Partial Thromboplast Time 48.1 SECONDS (21.0-31.0) Partial Thromboplastin Ratio 1.9 Anion Gap 11.0 mmol/L (3-11) Est Creatinine Clear Calc Drug Dose 5.9 ml/min Estimated GFR () 3.6 Estimated GFR (Non- 3.1 BUN/Creatinine Ratio 4.7 (10-20) Calcium Level 8.7 mg/dl (8.5-10.1) Magnesium Level 2.2 mg/dl (1.8-2.4) Total Bilirubin 0.4 mg/dl (0.2-1) Direct Bilirubin 0.1 mg/dl (0-0.2) Aspartate Amino Transf (AST/SGOT) 20 U/L (15-37) Alanine Aminotransferase (ALT/SGPT) 8 U/L (12-78) Alkaline Phosphatase 95 U/L (45-117) Troponin I 4.900 ng/ml (0-0.045) Total Protein 6.1 gm/dl (6.4-8.2) Albumin 2.6 gm/dl (3.4-5.0) Laboratory results as reviewed by me. ECG Indication: weakness (generalized) Rate (beats per minute): 102 Rhythm: sinus tachycardia Findings: LBBB, no acute ischemic change Comparison ECG Date: 06/09/2017 Change: Compared to prior, LBBB is new. ED Course 2041: The patient was evaluated in room A2. A complete history and physical exam was performed. 2136: I reevaluated and updated the patient. I performed a rectal exam. The patient is requesting that I reverse his Coumadin and discharge him on a new blood thinner. I asked him to wait on lab results before making any decisions. 2235: I rechecked the patient. We discussed his anemia, INR, electrolytes, and other lab and imaging findings. I made it clear to the patient that the standard of care is to admit him and monitor him closely. He insists that he would like to go home and is not interested in staying in the hospital. He does not want me to contact [place], and states that he will go home and return if his symptoms worsen. 2303: Reevaluated the patient. Discussed results and discharge instructions: he verbalized understanding and agreement. The patient is ready for discharge. Medical Decision Differential: Sepsis, Infectious (UTI/Pneumonia/Meningitis/etc), Metabolic/ Electrolyte Abnormality, Cardiac, Hepatic, Endocrine, Toxicologic, Neurologic, amongst other pathologies entertained. 62 yr old male arrives for evaluation of bleeding and bruising. He is a highly complex patient on peritoneal dialysis and is just 1 week s/p MVR CABG by [facility] [place] Cardiac Surgery, having left their facility just a few hours early. He notes he has been having bruising over much of body as well as bleeding into dialysate , urine and stool. Brown stool with streaks of blood, not heavy rectal bleeding by exam. He has therapeutic INR as well as bumped aPTT which is likely secondary to heparin shots he has been receiving at [facility] [place]. He has no evidence of heavy bleeding. His HgB is stable from this morning. There is not an indication to acutely reverse his coumadin. I do not feel it would be appropriate. Given just mild rectal blood and his stable hemoglobin with stable vitals we do not need reversal. He states he will not be taking his Coumadin any more and I have advised he discuss this with his doctors. His other labs remarkable to elevated Cr consistent with his renal failure as is the K which is mildly elevated as well as trop, especially given recent heart surgery. He has no cardiac chest pain and is without significant SHOB. He is weak which is completely understandable given recent surgery, admission and chronic anemia. I have advised that medical standard of care is to bring him in to monitor overnight however he makes clear he is not interested in staying. He is aware he may continue to bleed, may have worsening anemia and could have worse outcome. Reviewed he can return at any time if he wishes. I stressed follow up with his PCP and that he should call his surgeon in the morning. Blood Pressure Screening Patient's blood pressure: Normal blood pressure Blood pressure disposition: Did not require urgent referral Impression Primary Impression: Bleeding Additional Impressions: Anticoagulant effect Anemia Fatigue Scribe Attestation The scribe's documentation has been prepared under my direction and personally reviewed by me in its entirety. I confirm that the note above accurately reflects all work, treatment, procedures, and medical decision making performed by me. Departure Information Dispostion Home / Self-Care Referrals Flakito Martinez M.D. (PCP) Forms HOME CARE DOCUMENTATION FORM, IMPORTANT VISIT INFORMATION Patient Instructions My [facility] Additional Instructions We are always here to help. Return if worsening shortness of breath, weakness, or if any further bleeding/ concerns. Call your surgeon and PCP in morning to make them aware of findings and need for repeat hemoglobin and monitoring. Problem Qualifiers
[2017-08-29 21:09] VITALS: O2SAT 98
[2017-08-29 21:17] LABS: HEMATOCRIT 26.4 % (42-52); MEAN CORPUSCULAR HEMOGLOBIN 29.5 pg (25-34); MEAN CORPUSCULAR HGB CONC 31.1 g/dl (32-36); MEAN PLATELET VOLUME 10.5 fL (7.4-10.4); PLATELET COUNT 129 K/uL (130-400); RED BLOOD COUNT 2.78 M/uL (4.7-6.1); WHITE BLOOD COUNT 11.09 K/uL (4.8-10.8)
--- NOTE | 2017-08-29 21:20 | DIAGNOSTIC IMAGING REPORT ---
CHEST ONE VIEW PORTABLE CLINICAL HISTORY: 62 years-old Male presenting with shortness of breath. TECHNIQUE: Portable upright AP view of the chest was obtained. COMPARISON: 08/17/2017. FINDINGS: Median sternotomy wires and prosthetic valve now in place, likely prosthetic mitral valve. The cardiac silhouette remains enlarged. Mildly low lung volumes. Few bandlike opacities at the lung bases. Trace left pleural effusion may be present. No pneumothorax. Osseous structures normal. Upper abdomen normal. IMPRESSION: 1. Postsurgical changes of sternotomy wire and valve replacement. 2. Cardiomegaly. 3. Bibasilar atelectasis suspected. 4. Trace left pleural effusion. Electronically signed by: Carter Gongora M.D. 08/29/2017 9:19 PM Dictated Date/Time: 08/29/2017 9:17 PM
[2017-08-29 21:34] LABS: INR 2.7 (0.9-1.1); PARTIAL THROMBOPLASTIN RATIO 1.9; PROTHROMBIN TIME (PATIENT) 28.1 SECONDS (9.0-12.0)
[2017-08-29 21:44] LABS: ANISOCYTOSIS PRESENT; BASO % 0.5 %; BASO ABS # 0.05 K/uL (0-0.2); COMPLETE YES; EOS % 1.2 %; IG% 9.9 %; LYMPH % 10.6 %; LYMPH ABS # 1.18 K/uL (1.2-3.4); MONO % 11.3 %; NEUT % 66.5 %
[2017-08-29] MEDS ORDERED: ASPI81TA28 PO (21:54)
[2017-08-29] MEDS ORDERED: CMD/25 PO (21:54)
[2017-08-29] MEDS ORDERED: HYDCR1CL TOP (21:55)
[2017-08-29 22:13] LABS: BUN/CREATININE RATIO 4.7 (10-20); CALCIUM 8.7 mg/dl (8.5-10.1); CREATININE 14.9 mg/dl (0.60-1.40); MAGNESIUM 2.2 mg/dl (1.8-2.4); POTASSIUM 5.2 mmol/L (3.5-5.1)
[2017-08-29 23:00] VITALS: BP 115/72; PULSE 108; O2SAT 95
[2017-09-02] MEDS ORDERED: HYDR1OIN EXT (10:19)
[2017-09-02] MEDS ORDERED: ANSHCCR EXT (10:19)
[2017-09-02] MEDS ORDERED: ASPI81TA28 PO (10:19)
== END 2017-08-29 23:01 | disposition home or self-care (01) ==
LOC: C.EDB 20:31 → C.EDA 23:01
DX: T45.511A Poisoning by anticoagulants, accidental (unintentional), initial encounter (principal); R58 Hemorrhage, not elsewhere classified; D63.1 Anemia in chronic kidney disease; R53.83 Other fatigue; I44.7 Left bundle-branch block, unspecified; I12.0 Hypertensive chronic kidney disease with stage 5 chronic kidney disease or end stage renal disease; N18.6 End stage renal disease; I25.2 Old myocardial infarction; Z87.19 Personal history of other diseases of the digestive system; Z95.2 Presence of prosthetic heart valve; Z98.890 Other specified postprocedural states; Z79.01 Long term (current) use of anticoagulants; Z79.899 Other long term (current) drug therapy; Z87.891 Personal history of nicotine dependence; Z83.3 Family history of diabetes mellitus; Z82.49 Family history of ischemic heart disease and other diseases of the circulatory system

== ENCOUNTER 2017-08-31 14:43 | Inpatient (IN) | payer OTHER ==
[~2017-08-31] VITALS: Ht 177.8 cm; Wt 95.8 kg
[~2017-08-31 14:43] MED LIST changes: -ALBU18002 INH; -ALLO100T PO; -AMIO200T4 PO; -AMLO-110 PO; +AMLO5TAB3 PO; +ASPI81TA28 PO; -B-COCAP28 PO; -CALC500C3 PO; -CARV12.5 PO; -CINA0.42 PO; +CMD/25 PO; -DIPH25CA5 PO; -FLUT0.15 NAE; +HYDCR1CL TOP; -HYDR100T12 PO; -NTRO1 EXT; -OXYC1TAB3 PO; -PRED20TA2 PO; -SPRIN/30 INH; -SUCR5CHW PO
[2017-08-31] MEDS ORDERED: DOCU100C31 PO (15:19)
[2017-08-31] MEDS ORDERED: TRAM-10 PO (15:19)
[2017-08-31] MEDS ORDERED: SENN-61 PO (15:19)
[2017-08-31] MEDS ORDERED: CARV12.5 PO (15:19)
--- NOTE | 2017-08-31 16:23 | EMERGENCY ROOM VISIT NOTE ---
History Report prepared by Donell: Kriss Aguila Under the Supervision of: Dr. Reginald Johnson M.D. First contact with patient: 15:13 Chief Complaint: BLEEDING Stated Complaint: GI ASSESSMENT History of Present Illness The patient is a 62 year old male with a past medical history of ESRD , GI bleed, HTN, hemothorax on left, hyperkalemia, loculated pleural effusion, and NSTEMI who presents to the ED for a GI assessment secondary to persistent bleeding that began a few days ago. Positive hematochezia. The patient notes that he feels like he has been bleeding throughout his entire body. The patient had a valve replacement 6 days ago. He notes that he stopped taking Aspirin and Coumadin 2 days ago. Source of History: patient Onset: few days ago Position: other (GI) Quality: other (bleeding) Timing: other (persistent) Associated Symptoms: + hematochezia Review of Systems See HPI for pertinent positives and negatives. A total of ten systems were reviewed and were otherwise negative. Past Medical & Surgical Medical Problems: (1) Anemia due to chronic kidney disease (2) Chest pain (3) ESRD (end stage renal disease) (4) GI bleed (5) Hemothorax on left (6) HTN (hypertension) (7) Hyperkalemia (8) Hypertensive urgency (9) Ischemic foot (10) Ischemic rest pain of lower extremity (11) Loculated pleural effusion (12) NSTEMI (non-ST elevated myocardial infarction) Surgical Problems: (1) H/O colonoscopy (2) Heart valve replaced (3) History of dental surgery (4) History of esophagogastroduodenoscopy (EGD) (5) [place] teeth extracted Family History Diabetes mellitus FATHER FH: CHF (congestive heart failure) FATHER Hypertension FATHER Social History Smoking Status: Former Smoker Alcohol Use: occasionally Drug Use: none Marital Status: Housing Status: lives with significant other Occupation Status: employed Current/Historical Medications Scheduled Amiodarone Hcl (Cordarone), 200 MG PO QPM Aspirin (Aspirin Ec), 81 MG PO BID B-Complex W/ C & Folic Acid (Triphrocaps), 1 CAP PO DAILY Carvedilol (Coreg), 12.5 MG PO BID Cinacalcet (Sensipar), 30 MG PO QPM Docusate Sodium (Docusate Sodium), 1 CAP PO BID Magnesium Oxide (Mg Supplement (Magnesium), 500 MG PO 2XWK Senna (Senokot), 1 TAB PO BID Sucroferric Oxyhydroxide (Velphoro), 500 MG PO UD Sucroferric Oxyhydroxide (Velphoro), 1,000 MG PO AC Tiotropium [place] (Spiriva Handihaler), 1 CAP INH DAILY Warfarin Sod (Coumadin), 2.5 MG PO DAILY Scheduled PRN Calcium Carbonate (Tums), 500 MG PO UD PRN for Indigestion Diphenhydramine Hcl (Benadryl), 75 MG PO HS PRN for Sleep Fluticasone Propionate (Nasal) (Flonase Allergy Relief), 2 SPRAYS RAFAEL DAILY PRN for Allergy Symptoms Tramadol (Ultram), 50 MG PO Q6 PRN for Pain Allergies Coded Allergies: No Known Allergies (Unverified , 08/31/17) Physical Exam Vital Signs Date Time Temp Pulse Resp B/P (MAP) Pulse Ox O2 Delivery O2 Flow Rate FiO2 09/01/17 00:48 36.8 91 18 126/80 99 09/01/17 00:14 110 18 114/82 93 Room Air 08/31/17 23:09 87 08/31/17 22:00 89 20 132/90 98 Room Air 08/31/17 20:00 94 20 118/73 94 Room Air 08/31/17 19:37 94 08/31/17 18:00 85 18 146/75 98 Room Air 08/31/17 16:35 89 16 127/75 98 Room Air 08/31/17 16:27 Room Air 08/31/17 15:30 87 08/31/17 14:50 36.6 88 18 116/64 98 Room Air Physical Exam GENERAL: Awake, alert, well-appearing, NAD HENT: Normocephalic, atraumatic. EYES: Normal conjunctiva. Sclera non-icteric. NECK: Supple. No nuchal rigidity. FROM. RESPIRATORY: CTAB, no rhonchi, wheezing, crackles CARDIAC: RRR, no MRG CHEST: Midline incisional site, CDI, no bleeding, no erythemas ABDOMEN: 2 small 1cm wounds in right upper abdomen, no expanding cellulitis. Soft, NTND, BS+ MSK: PD catheter left lower quadrant. No chest wall TTP, no LE edema NEURO: GCS 15, CN 2-12 intact, moves all 4s on command SKIN: Bruising on right upper extremity. No rash or jaundice noted. Medical Decision & Procedures ER Provider Diagnostic Interpretation: Radiology results as stated below per my review and radiologist interpretation: CHEST ONE VIEW PORTABLE CLINICAL HISTORY: GI bleed. Recent open heart surgery. COMPARISON STUDY: History of August 29, 2017. FINDINGS: There are median sternotomy wires and a prosthetic cardiac valve. Moderate enlargement of the cardiac silhouette is unchanged. There is no no evidence for pulmonary edema. A suspected small left pleural effusion is noted with left basilar opacity. This is similar to prior exam. IMPRESSION: 1. Stable enlargement of the cardiac silhouette without evidence of pulmonary edema. 2. Suspected small left pleural effusion with left basilar opacity which could reflect atelectasis or consolidation. Electronically signed by: David Pena M.D. 08/31/2017 4:22 PM Dictated Date/Time: 08/31/2017 4:21 PM Laboratory Results Test 08/31/17 16:25 Immature Granulocyte % (Auto) 9.6 % White Blood Count 8.79 K/uL (4.8-10.8) Red Blood Count 2.59 M/uL (4.7-6.1) Hemoglobin 7.9 g/dL (14.0-18.0) Hematocrit 25.3 % (42-52) Mean Corpuscular Volume 97.7 fL (80-100) Mean Corpuscular Hemoglobin 30.5 pg (25-34) Mean Corpuscular Hemoglobin Concent 31.2 g/dl (32-36) Platelet Count 103 K/uL (130-400) Mean Platelet Volume 9.9 fL (7.4-10.4) Neutrophils (%) (Auto) 62.7 % Lymphocytes (%) (Auto) 11.0 % Monocytes (%) (Auto) 15.1 % Eosinophils (%) (Auto) 1.0 % Basophils (%) (Auto) 0.6 % Neutrophils # (Auto) 5.51 K/uL (1.4-6.5) Lymphocytes # (Auto) 0.97 K/uL (1.2-3.4) Monocytes # (Auto) 1.33 K/uL (0.11-0.59) Eosinophils # (Auto) 0.09 K/uL (0-0.5) Basophils # (Auto) 0.05 K/uL (0-0.2) Immature Granulocyte # (Auto) 0.84 K/uL (0.00-0.02) Polychromasia 1+ Stomatocytes 1+ Activated Partial Thromboplast Time 41.0 SECONDS (21.0-31.0) Partial Thromboplastin Ratio 1.6 Lipase 152 U/L (73-393) Laboratory results reviewed by me Medications Administered Medications (Trade) Dose Ordered Sig/Aleksandra Route Start Time Stop Time Status Last Admin Dose Admin Phytonadione 10 mg/Sodium Chloride 51 ml @ 102 mls/hr ONE ONCE IV 08/31/17 21:15 08/31/17 21:44 DC 08/31/17 21:36 102 MLS/HR Pantoprazole Sodium 40 mg/ Syringe 10 ml @ 5 mls/min NOW ONCE IV 08/31/17 21:30 08/31/17 21:31 DC 08/31/17 22:11 5 MLS/MIN ECG Indication: other (GI bleed ) Rate (beats per minute): 92 Rhythm: normal sinus Findings: T-wave inversion (lateral and high lateral), other (normal intervals , normal axis) Comparison ECG Date: unchaged from 08/29 ED Course 153: The patient was evaluated in room C12. A complete history and physical exam was performed. 1719: I reevaluated the patient and performed a stool test, showing melenic stool heme positive. 1840: Spoke with Dr. Marte, [facility] and Juwan Saeed PA-C, discussed the patient's case. The patient will be evaluated for further treatment and disposition. 1951: Spoke with Dr. Garcia CT surgery, [facility] who recommends to stop Coumadin, give vitamin K and continue aspirin. He is willing to accept as transfer. The patient declined being transferred. The patient will be admitted to this hospital. Medical Decision Patient was seen and evaluated the bedside. Patient is a 62-year-old with multiple medical comorbidities did have a recent mitral valve replacement completed at [facility] last week. Patient was started on Coumadin was taking this as well as 2 baby aspirin for anticoagulation. Patient does have ESRD does receive peritoneal dialysis. Patient has noticed some blood coming from his PD catheter in addition to his urine, and stool. Patient states he did get a transfusion yesterday. Patient was recently seen for similar symptoms on . Patient's hemoglobin was 7.9 today. Patient had stopped taking his Coumadin. Patient does have an INR of 1.8. Patient has a normal white blood cell count. Patient's BMP is consistent with ESRD with an elevated BUN/ creatinine. Patient's potassium is 5.2 and will not treat at this time. I did speak with the hospitalist and the ground school instructor. They were concerned that given his very complex medical history he may benefit from transfer. I then paged the CT surgeon who did perform his procedure. He stated that coumadin was only a relative indication to be given as he had a bioprosthetic and not mechanical valve. He stated that we could stop the Coumadin, give vitamin K, but continue aspirin. Vitamin K was ordered. I did speak with pharmacy about this order and was sent. Dr. Garcia did accept the patient for transfer; however, I did speak with the patient he will refuse transfer at this time. This information was relayed to the hospitalist and the ground school instructor. The ground school instructor agreed to admit the patient. Patient was consented for 2 units of PRBCs and was given Nexium 40. Patient was admitted. Medication Reconcilliation Current Medication List: was personally reviewed by pr Blood Pressure Screening Patient's blood pressure: Elevated blood pressure Blood pressure disposition: Referred to PCP (hospitalist) Consults Time Called: 1840 Consulting Physician: SULY Hollis and Juwan Saeed PA-C Returned Call: 1840 Spoke with SULY Hollis and Juwan Saeed PA-C, discussed the patient's case. The patient will be evaluated for further treatment and disposition. Additional Consults: Time Called: 1951 Consulted Physician: Dr. Jose LEARY surgeryOpal Returned Call: 1951 Additional Comments: Spoke with Dr. Garcia CT surgeryOpal who recommends to stop Coumadin, give vitamin K and continue aspirin. He is willing to accept as transfer. The patient declined being transferred. Impression Primary Impression: Anemia Additional Impressions: Hyperkalemia Rectal bleeding Coagulopathy Critical Care I have personally spent greater than 55 minutes of critical care time in the direct management of this patient. This includes bedside care, interpretation of diagnostic studies, and testing, discussion with consultants, patient, and family members, and other required patient management activities. This 55 minutes is in excess of all separately billable procedures. Scribe Attestation The scribe's documentation has been prepared under my direction and personally reviewed by me in its entirety. I confirm that the note above accurately reflects all work, treatment, procedures, and medical decision making performed by me. Departure Information Dispostion Being Evaluated By Hospitalist Referrals Flakito Martinez M.D. (PCP) Forms HOME CARE DOCUMENTATION FORM, IMPORTANT VISIT INFORMATION Patient Instructions My [facility] Problem Qualifiers Primary Impression: Anemia Anemia type: unspecified type Qualified Codes: D64.9 - Anemia, unspecified
[2017-08-31 16:53] LABS: HEMATOCRIT 25.3 % (42-52); HEMOGLOBIN 7.9 g/dL (14.0-18.0); MEAN CELL VOLUME 97.7 fL (80-100); MEAN CORPUSCULAR HEMOGLOBIN 30.5 pg (25-34); MEAN CORPUSCULAR HGB CONC 31.2 g/dl (32-36); MEAN PLATELET VOLUME 9.9 fL (7.4-10.4); NUCLEATED RED BLOOD CELL ABS 0.11 K/uL (0-0); PLATELET COUNT 103 K/uL (130-400); RED CELL DISTRIBUTION WIDTH CV 18.3 % (11.5-14.5); RED CELL DISTRIBUTION WIDTH SD 60.5 fL (36.4-46.3); WHITE BLOOD COUNT 8.79 K/uL (4.8-10.8)
[2017-08-31 17:20] LABS: BASO % 0.6 %; BASO ABS # 0.05 K/uL (0-0.2); EOS ABS # 0.09 K/uL (0-0.5); IG# 0.84 K/uL (0.00-0.02); LYMPH ABS # 0.97 K/uL (1.2-3.4); MONO % 15.1 %; MONO ABS # 1.33 K/uL (0.11-0.59); NEUT % 62.7 %; NEUT ABS # 5.51 K/uL (1.4-6.5)
[2017-08-31 17:37] LABS: ALBUMIN 2.4 gm/dl (3.4-5.0); CALCIUM 8.8 mg/dl (8.5-10.1); CREATININE 15.4 mg/dl (0.60-1.40); POTASSIUM 5.2 mmol/L (3.5-5.1); TOTAL PROTEIN 5.8 gm/dl (6.4-8.2)
[2017-08-31 18:57] LABS: INR 1.8 (0.9-1.1)
[2017-08-31] MEDS ORDERED: PHYTONADIONE INJ 10 MG in SODIUM CHLORIDE 0.9% 50ML 50 ML IV ONE (21:15)
[2017-08-31] MEDS ORDERED: PANTOprazole INJ 40 MG in SYRINGE 0 ML IV ONE (21:30)
[2017-09-01] VITALS (20 sets, daily range): BP systolic 93–157; BP diastolic 69–96; PULSE 81–99; TEMP 36.3–37.1; O2SAT 92–99; Ht 177.8 cm; Wt 95.8 kg
--- NOTE | 2017-09-01 03:00 | NUR ---
PATIENT ARRIVED AT FLOOR. VS ARE STABLE. PATIENT HAS A LONG LIST OF DEMANDS FOR CARE. LISTENED AND OBLIGED PATIENT DEMANDS. WENT OVER PROCESS OF HOSPITAL STAY. UNDERSTOOD. CALL MELENDEZ IN REACH. BED IN LOW POSITION. WILL CONTINUE TO MONITOR THIS ICU PATIENT.
[2017-09-01] MEDS ORDERED: CALCIUM CARBONATE 500 MG CHEWABLE PO PRN (03:15)
[2017-09-01] MEDS ORDERED: ICU PROTOCOL FOR HYPERGLYCEMIA PRN ×2 (03:15)
[2017-09-01] MEDS ORDERED: TRAMADOL HCL 50 MG TAB PO PRN (03:15)
[2017-09-01] MEDS ORDERED: FLUTICASONE PROPIONATE NA SPR 16 GM BTL NAE PRN (03:15)
--- NOTE | 2017-09-01 04:00 | NUR ---
PATIENT NEEDED NEW IV, ATTEMPTED STICK, FAILED. CALLED TO IV TEAM TO GET SITE. VS ARE STABLE. CALL MELENDEZ IN REACH. BED IN LOW POSITION. WILL CONTINUE TO MONITOR THIS ICU PATIENT.
[2017-09-01 04:32] LABS: HEMATOCRIT 28.6 % (42-52); MEAN CELL VOLUME 96.6 fL (80-100); MEAN CORPUSCULAR HEMOGLOBIN 30.4 pg (25-34); MEAN CORPUSCULAR HGB CONC 31.5 g/dl (32-36); NUCLEATED RED BLOOD CELL ABS 0.15 K/uL (0-0); RED CELL DISTRIBUTION WIDTH CV 17.4 % (11.5-14.5); RED CELL DISTRIBUTION WIDTH SD 57.5 fL (36.4-46.3); WHITE BLOOD COUNT 8.69 K/uL (4.8-10.8)
[2017-09-01 04:55] LABS: MEAN PLATELET VOLUME 10.1 fL (7.4-10.4); PLATELET COUNT 99 K/uL (130-400)
[2017-09-01 05:23] LABS: ALBUMIN 2.5 gm/dl (3.4-5.0); CALCIUM 8.6 mg/dl (8.5-10.1); CREATININE 16.3 mg/dl (0.60-1.40); PHOSPHORUS 5.2 mg/dl (2.5-4.9); POTASSIUM 5.2 mmol/L (3.5-5.1); TOTAL PROTEIN 5.7 gm/dl (6.4-8.2)
--- NOTE | 2017-09-01 06:00 | NUR ---
PATIENT NOW ASLEEP. EASILY AROUSES TO VOICE. VS ARE STABLE. SEE EMR FOR FULL PHYSICAL ASSESSMENT. CALL MELENDEZ IN REACH. BED IN LOW POSITION. WILL CONTINUE TO MONITOR THIS ICU PATIENT.
--- NOTE | 2017-09-01 06:40 | Critical Care Consultation ---
Critical Care Consultation Date of Consultation: Sep 01, 2017. Attending Physician: Mo Marte M.D. Reason for Consultation: Worsening anemia with concern for bleeding in the setting of recent anticoagulation status post mitral valve bioprosthesis valve replacement 7 days ago at [facility]. History of Present Illness Patient is a 62-year-old male who presented to the emergency department today for concerns for persistent episodes of bleeding. Most recently, the patient has been treated for an acute arterial occlusion of his left femoral vessel requiring intervention at this facility. Shortly after, the patient underwent bioprosthetic valve replacement of his mitral valve 7 days ago at [facility]. In addition, he had CABG 1 vessel. His hospital stay was abbreviated by the patient's wishes to be discharged home. There was concern for vegetative lesion on his mitral valve, however he was never placed on antibiotics and reports that his cultures have been negative. Over the past few days, he reports that he has had worsening bleeding while picking at his scabs. He also reports some blood in his nose as well as bright red blood with wiping. He does report a history of hemorrhoids. He is concerned that the Coumadin is thin his blood and given him issues. He was seen in the emergency department on the for the same complaints and refused to be admitted at that point and also refused for the emergency provider to contact his surgeon at [place]. I was consult and to the emergency department. I had a lengthy conversation with the patient. At that time, I felt it best that the emergency department provider speak with the patient's surgeon. He did so, and the surgeon did accept the patient and transferred to [facility]. The patient was reluctant and refused to be transferred at that time. He also suggests that the patient's INR be corrected with vitamin K. He also suggests transfusion for worsening anemia. He suggests discontinuing the Coumadin of which the patient was only to stay on for one month. He does recommend continuing with the aspirin. I became involved as it was felt best that the patient be monitored in the ICU. The patient has a history of end-stage renal disease for which he receives retroperitoneal dialysis daily. He has followed with Jennifer, but most recently reports that he is changed to follow with Dr. Martinez. Patient is resting comfortably upon arrival to the ICU. He currently denies any headaches, dizziness, lightheadedness, chest pain, palpitations, shortness of breath, nausea, vomiting, abdominal pain, or extremity pain. Past Medical/Surgical History Medical Problems: (1) Anemia due to chronic kidney disease (2) Chest pain (3) ESRD (end stage renal disease) (4) GI bleed (5) Hemothorax on left (6) HTN (hypertension) (7) Hyperkalemia (8) Hypertensive urgency (9) Ischemic foot (10) Ischemic rest pain of lower extremity (11) Loculated pleural effusion (12) NSTEMI (non-ST elevated myocardial infarction) Surgical Problems: (1) H/O colonoscopy (2) Heart valve replaced (3) History of dental surgery (4) History of esophagogastroduodenoscopy (EGD) (5) [place] teeth extracted Family History Diabetes mellitus FATHER FH: CHF (congestive heart failure) FATHER Hypertension FATHER noncontributory Social History Smoking Status: Former Smoker Smokeless Tobacco Use: No Alcohol Use: none Drug Use: none Marital Status: Housing Status: lives with significant other Occupation Status: employed Allergies Coded Allergies: No Known Allergies (Unverified , 08/31/17) Home Medications Scheduled Amiodarone Hcl (Cordarone), 200 MG PO QPM Aspirin (Aspirin Ec), 81 MG PO BID B-Complex W/ C & Folic Acid (Triphrocaps), 1 CAP PO DAILY Carvedilol (Coreg), 12.5 MG PO BID Cinacalcet (Sensipar), 30 MG PO QPM Docusate Sodium (Docusate Sodium), 1 CAP PO BID Magnesium Oxide (Mg Supplement (Magnesium), 500 MG PO 2XWK Senna (Senokot), 1 TAB PO BID Sucroferric Oxyhydroxide (Velphoro), 500 MG PO UD Sucroferric Oxyhydroxide (Velphoro), 1,000 MG PO AC Tiotropium Vilas (Spiriva Handihaler), 1 CAP INH DAILY Warfarin Sod (Coumadin), 2.5 MG PO DAILY Scheduled PRN Calcium Carbonate (Tums), 500 MG PO UD PRN for Indigestion Diphenhydramine Hcl (Benadryl), 75 MG PO HS PRN for Sleep Fluticasone Propionate (Nasal) (Flonase Allergy Relief), 2 SPRAYS RAFAEL DAILY PRN for Allergy Symptoms Tramadol (Ultram), 50 MG PO Q6 PRN for Pain Current Inpatient Medications Current Inpatient Medications Medications (Trade) Dose Ordered Sig/Aleksandra Route Start Time Stop Time Status Last Admin Dose Admin Pantoprazole Sodium 40 mg/ Syringe 10 ml @ 5 mls/min DAILY IV 09/01/17 09:00 10/01/17 08:59 UNV Miscellaneous Information (Icu Protocol For Hyperglycemia) 1 ea PRN PRN N/A 09/01/17 03:15 09/03/17 03:14 Amiodarone HCl (Cordarone Tab) 200 mg QPM PO 09/01/17 21:00 10/01/17 20:59 UNV Aspirin (Ecotrin Tab) 81 mg BID PO 09/01/17 09:00 10/01/17 08:59 UNV Vitamin B Complex/ Vit C/Folic Acid (Nephrocaps) 1 cap DAILY PO 09/01/17 09:00 10/01/17 08:59 UNV Calcium Carbonate (Tums Chew Tab) 500 mg UD PRN PO 09/01/17 03:15 10/01/17 03:14 UNV Carvedilol (Coreg Tab) 12.5 mg BID PO 09/01/17 09:00 10/01/17 08:59 UNV Diphenhydramine HCl (Benadryl Cap) 75 mg HS PRN PO 09/01/17 03:15 10/01/17 03:14 UNV Docusate Sodium (coLACE CAP) 100 mg BID PO 09/01/17 09:00 10/01/17 08:59 UNV Fluticasone Propionate (Flonase Nasal Wisner) 2 sprays DAILY PRN RAFAEL 09/01/17 03:15 10/01/17 03:14 Senna (Senokot Tab) 8.6 mg BID PO 09/01/17 09:00 10/01/17 08:59 UNV Tiotropium Vilas (Spiriva Handihaler Inhaler) 1 puff DAILY INH 09/01/17 09:00 10/01/17 08:59 Tramadol HCl (Ultram Tab) 50 mg Q6 PRN PO 09/01/17 03:15 10/01/17 03:14 Review of Systems A complete 10-point Review of Systems was discussed with the patient, with pertinent positives and negatives listed in the History of Present Illness. All remaining Review of Systems questions can be considered negative unless otherwise specified. Physical Exam Date Time Temp Pulse Resp B/P (MAP) Pulse Ox O2 Delivery O2 Flow Rate FiO2 09/01/17 04:16 36.6 88 20 93/80 92 Room Air 09/01/17 01:32 37.0 89 16 112/71 95 09/01/17 01:09 37.0 97 18 134/75 96 09/01/17 00:48 36.8 91 18 126/80 99 09/01/17 00:14 110 18 114/82 93 Room Air 08/31/17 23:09 87 08/31/17 22:00 89 20 132/90 98 Room Air 08/31/17 20:00 94 20 118/73 94 Room Air 08/31/17 19:37 94 08/31/17 18:00 85 18 146/75 98 Room Air 08/31/17 16:35 89 16 127/75 98 Room Air 08/31/17 16:27 Room Air 08/31/17 15:30 87 08/31/17 14:50 36.6 88 18 116/64 98 Room Air VITAL SIGNS - Vital signs and nursing notes were reviewed. GENERAL - 62-year-old male appearing older than his stated age who is in no acute distress. Communicates well with provider and answers questions appropriately. HEAD - NC/AT. EYES - PERRL with EOMI bilaterally. Sclera anicteric. Palpebral conjunctiva pink and moist with no injection noted. EARS - No deformities of external structures noted on gross examination bilaterally. NOSE - Midline and without cyanosis. No epistaxis or purulent drainage noted. Septum midline without deviation or septal hematoma noted. MOUTH/OROPHARYNX - Without perioral cyanosis. Buccal mucosa pink and moist and without leukoplakia. Tongue midline with equal elevation of palate bilaterally. No tonsillar hypertrophy, erythema, or exudates noted. Poor dentition noted. NECK - Neck with FROM. Supple to palpation. LUNGS - Chest wall symmetric without accessory muscle use, intercostals retractions, or central cyanosis. Normal vesicular breath sounds CTA B/L. No wheezes, rales, or rhonchi appreciated. CARDIAC - Well-healing surgical incision sited noted to the midline of the chest. RRR with S1/S2. No murmur, rubs, or gallops appreciated. No reproducible tenderness to palpation appreciated over the anterior chest wall. ABDOMEN - Abdominal contour protuberant and without pulsations or visible masses. BS normoactive all four quadrants. No tenderness, palpable masses, hepatosplenomegaly, or ascites noted. EXTREMITIES - No clubbing or peripheral cyanosis. Mild pretibial edema present bilaterally. +2/5 radial and dorsalis pedis pulses palpated throughout. +5/5 strength noted in UE/LE bilaterally. NEUROLOGIC - Cranial nerves II through XII grossly intact. Sensory intact to light touch throughout. PSYCH - A&Ox3 and cooperates fully with examiner. Patient seems to wish to dictate his own course and treatment not only at this facility, but throughout his entire complex medical history. Laboratory Results Last 24 Hours Test 08/31/17 16:25 09/01/17 04:19 White Blood Count 8.79 K/uL 8.69 K/uL Red Blood Count 2.59 M/uL 2.96 M/uL Hemoglobin 7.9 g/dL 9.0 g/dL Hematocrit 25.3 % 28.6 % Mean Corpuscular Volume 97.7 fL 96.6 fL Mean Corpuscular Hemoglobin 30.5 pg 30.4 pg Mean Corpuscular Hemoglobin Concent 31.2 g/dl 31.5 g/dl Platelet Count 103 K/uL 99 K/uL Mean Platelet Volume 9.9 fL 10.1 fL Neutrophils (%) (Auto) 62.7 % Lymphocytes (%) (Auto) 11.0 % Monocytes (%) (Auto) 15.1 % Eosinophils (%) (Auto) 1.0 % Basophils (%) (Auto) 0.6 % Neutrophils # (Auto) 5.51 K/uL Lymphocytes # (Auto) 0.97 K/uL Monocytes # (Auto) 1.33 K/uL Eosinophils # (Auto) 0.09 K/uL Basophils # (Auto) 0.05 K/uL RDW Standard Deviation 60.5 fL 57.5 fL RDW Coefficient of Variation 18.3 % 17.4 % Immature Granulocyte % (Auto) 9.6 % Immature Granulocyte # (Auto) 0.84 K/uL Nucleated RBC Absolute Count (auto) 0.11 K/uL 0.15 K/uL Nucleated Red Blood Cells % 1.2 % 1.7 % Polychromasia 1+ Stomatocytes 1+ Prothrombin Time 18.5 SECONDS Prothromb Time International Ratio 1.8 Activated Partial Thromboplast Time 41.0 SECONDS Partial Thromboplastin Ratio 1.6 Sodium Level 133 mmol/L 131 mmol/L Potassium Level 5.2 mmol/L 5.2 mmol/L Chloride Level 95 mmol/L 94 mmol/L Carbon Dioxide Level 31 mmol/L 30 mmol/L Anion Gap 7.0 mmol/L 7.0 mmol/L Blood Urea Nitrogen 68 mg/dl 74 mg/dl Creatinine 15.40 mg/dl 16.30 mg/dl Est Creatinine Clear Calc Drug Dose 5.9 ml/min 5.5 ml/min Estimated GFR () 3.4 3.2 Estimated GFR (Non- 2.9 2.7 BUN/Creatinine Ratio 4.3 4.5 Random Glucose 78 mg/dl 77 mg/dl Calcium Level 8.8 mg/dl 8.6 mg/dl Total Bilirubin 0.4 mg/dl 0.5 mg/dl Direct Bilirubin 0.1 mg/dl 0.2 mg/dl Aspartate Amino Transf (AST/SGOT) 18 U/L 17 U/L Alanine Aminotransferase (ALT/SGPT) 9 U/L 8 U/L Alkaline Phosphatase 95 U/L 92 U/L Total Protein 5.8 gm/dl 5.7 gm/dl Albumin 2.4 gm/dl 2.5 gm/dl Lipase 152 U/L Neutrophils % (Manual) 70.8 % Lymphocytes % (Manual) 12.9 % Monocytes % (Manual) 11.2 % Basophils % (Manual) 1.7 % Metamyelocytes % 3.4 % Neutrophils # (Manual) 6.15 K/uL Total Absolute Neutrophils 6.15 K/uL Lymphocytes # (Manual) 1.12 K/uL Total Absolute Lymphocytes 1.12 K/uL Monocytes # (Manual) 0.97 K/uL Basophils # (Manual) 0.15 K/uL Metamyelocytes # 0.30 K/uL Platelet Estimate DECREASED Red Blood Cell Morphology Unremarkable Phosphorus Level 5.2 mg/dl Magnesium Level 2.4 mg/dl Diagnostic Results Radiological imaging and reports were reviewed by myself. Radiologist's Interpretation as follows: CHEST ONE VIEW PORTABLE CLINICAL HISTORY: GI bleed. Recent open heart surgery. COMPARISON STUDY: History of August 29, 2017. FINDINGS: There are median sternotomy wires and a prosthetic cardiac valve. Moderate enlargement of the cardiac silhouette is unchanged. There is no no evidence for pulmonary edema. A suspected small left pleural effusion is noted with left basilar opacity. This is similar to prior exam. IMPRESSION: 1. Stable enlargement of the cardiac silhouette without evidence of pulmonary edema. 2. Suspected small left pleural effusion with left basilar opacity which could reflect atelectasis or consolidation. Assessment & Plan (1) Coagulopathy (2) Anemia (3) Rectal bleeding (4) Anemia due to chronic kidney disease (5) ESRD (end stage renal disease) (6) Hyperkalemia (7) End stage renal disease Reason Critically Ill: Worsening anemia with concern for bleeding in the setting of recent anticoagulation status post mitral valve bioprosthesis valve replacement 7 days ago at [facility]. Neuro - * CAM ICU: NEGATIVE * Sternotomy Pain - Ultram * Consider Psychiatric Consultation - patient seems to pick at skin causing lesions/bleeding. Additionally, he has been attempting to coordinate his care in the setting of extensively complex medical conditions. His grandiosity is directly detrimental to his health. He has fired his PCP and continues to bounce between providers. This is concerning given his multiple comorbidities. Cardiac - * s/p Mitral Valve Repair with Bioprosthetic Valve and CABG x1 vessel performed at [facility] 7 days ago: * Initially bridged to Coumadin. Patient is fixated on Coumadin and feels that his bleeding worsened because of this. He did have Hemoccult positive stools, however no significant bethany bleeding. He complains of spontaneous bleeding on his skin, however he certainly does pick at his skin causing these episodes to occur. * In my impression, the patient essentially does not wish to be on anticoagulants despite his complex medical history with coagulopathy as well as recent valvular repair. * Patient was initially set to be transferred to [facility], however he declined transfer. Ideally, I feel the patient should be managed by his most recent surgeon, however the patient is refusing transfer. * Will defer further recommendations to cardiology at this point. * Was already corrected with vitamin K and 1 unit PRBCs in the emergency department at the recommendation of his surgeon, Dr. Garcia. * ??Need for hemoglobin to be >10 2/2 recent coronary intervention?? * Was noted to have elevated troponin during visit 2 days ago. Likely 2/2 recent cardiac intervention and ESRD. Will monitor, however, patient is chest pain free at this time and EKG otherwise unremarkable. * Monitor on Telemetry/EKGs w/ chest Pain. * Continue all other home medications. Respiratory - * No h/o pulmonary disease. * History of smoking. * Encourage cessation. * Added Nicotine patch PRN. GI - * BRBPR: * Hemoccult POSITIVE in the ED. * Appreciate GI Consultation. * Protonix RENAL/LYTES - * ESRD on Peritoneal Dialysis w/ Chronic Electrolyte Derangements: * Elevated BUN/Cr consistent with baseline - Dialysis. * Continue treatments per Nephrology. * Appreciate Nephrology consultation. * In the past, patient has followed with Dr. Angeles, however during recent ICU admission, he lists Dr. Martinez as his primary Breaker Off. - * No Ewaver - essentially anuric. ENDO - * No h/o DM - will monitor BSGs - ISS/gtt per protocols as needed. * No h/o Thyroid Dz. HEME - * Anemia of chronic disease: * No real change in baseline anemia. * Recent MVR/CABG - ?need for transfusion of PRBCs per pt's surgeon in [place]. Will defer to cardiology. * Anticoagulation use 2/2 MVR/CABG: * Patient c/o bleeding (skin/rectum). * Hold Coumadin per surgeon (Dr. Jose Joseph) * Continue ASA. * Correct INR. * Defer further instructions per cardiology/patient's cardiothoracic surgeon. ID - * No concerns for infection at this time. * Monitor fever curve. LINES/IV ACCESS - * PIV intact. DVT PROPHYLAXIS - * Hold chemical prophylaxis 2/2 bleeding. * Hold SCDs 2/2 recent LE interventions I have personally spent 32 minutes of critical care time in the direct management of this patient. This is a life/limb threatening event. This includes time spent evaluating patient, direct bedside care, chart review, placing orders, interpretation of diagnostic studies, discussion with consultants, patient, and family members, as well as other required patient management activities. This time is exclusive of all separately billable procedures, and teaching time and separate from and in addition to any other critical care service time. Thank you for this consultation allow us to be part of this patient's care. Please refer to my attending physician's documentation for any further recommendations. I have seen and examined the patient with my PA. Reviewed all the labs and CXR by myself. Agree with above recommendations and plan of care. DR. Rah [facility]. Problem Qualifiers (1) Anemia: Anemia type: unspecified type Qualified Codes: D64.9 - Anemia, unspecified
[2017-09-01] MEDS ORDERED: NICOTINE 21 MG/24 HR TDSY TD PRN (06:45)
[2017-09-01] MEDS: TIOTROPIUM BROMIDE 5 PUFF/90 MCG INH INH SCH (07:58)
[2017-09-01] MEDS: ASPIRIN 81 MG ECTAB PO SCH ×2 (07:59→08:08)
[2017-09-01] MEDS: NEPHROCAPS PO SCH (07:59)
[2017-09-01] MEDS: SENNA 8.6 MG TAB PO SCH ×2 (07:59→20:51)
[2017-09-01] MEDS: CARVEDILOL 12.5 MG TAB PO SCH ×3 (07:59→20:53)
[2017-09-01] MEDS: DOCUSATE SODIUM 100 MG CAP PO SCH ×3 (08:00→20:53)
--- NOTE | 2017-09-01 08:00 | NUR ---
Pt resting in bed. Upset about need for medications that are not ordered. Will speak with MD regarding ordering of medications. Pt did refuse some medications ordered this am. Ate 100% of breakfast but upset about his meal and feels he should have had a larger breakfast. Left lower quad peritoneal dialysis catheter in place. Incisions from recent MVR on chest and left leg scabbed and appear to be healing well. Pt denies any c/o pain at this time. VS stable. desk monitor NSR. Pt self positions in bed. Using call staples for assistance.
[2017-09-01] MEDS ORDERED: PANTOprazole INJ 40 MG in SYRINGE 0 ML IV SCH (09:00)
[2017-09-01 09:11] LABS: HEMATOCRIT 26.2 % (42-52); HEMOGLOBIN 8.6 g/dL (14.0-18.0)
[2017-09-01 09:18] LABS: INR 1.1 (0.9-1.1)
--- NOTE | 2017-09-01 10:29 | CARDIOLOGY CONSULTATION ---
DATE OF CONSULTATION: 09/01/2017 CONSULTATION FOR: [facility]. 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 He is now following with Dr. Jaime. Dr. Jaime's last interaction with him in April lays out his past medical history in detail. He is a somewhat difficult patient. He has a history of end-stage renal disease and was on hemodialysis and then switched to peritoneal dialysis. As I recall my last interaction with him his optometry practices in [place] and he wanted to continue to practice. He has a history of paroxysmal atrial fibrillation and he had an admission in November of this year, at which time he had atrial fibrillation and was placed on amiodarone. At that time, it was outlined by the attending homeopathic doctor that he was at risk for a long-term anticoagulation and was recommended that he not be started on Coumadin. He subsequently was discharged on this medication and then came back in with profound anemia and had 4000 mL of bloody drainage removed with a chest tube. He then was off of anticoagulation and then presented with a thrombosed left lower extremity that required emergent evacuation of the thrombus. The patient was noted to have what was felt to be a vegetation on his mitral valve. This eventually led to open heart surgery with a mitral valve replacement with a bioprosthesis and single vessel bypass. Evaluation of the vegetation indicated that it was caseating and not infectious. The patient was eventually discharged home on . He was placed back on Coumadin and according to the patient, he has been having bleeding including epistaxis, hematochezia and a lot of bruising. He presented to the Emergency Department. He was once again anemic, requiring blood transfusion and he has been taken off of warfarin. He currently has no cardiac complaints. We are waiting a consultation from his engineer station mainline, so that he can restart peritoneal dialysis. ALLERGIES: No known medical allergies. PAST MEDICAL HISTORY: As outlined in the history of chief complaint. In addition, he has a history of hypertension. FAMILY MEDICAL HISTORY: Noncontributory. SOCIAL HISTORY: The patient is a former smoker. He is . REVIEW OF SYSTEMS: A 10-point review of systems is negative except for the history of chief complaint. PHYSICAL EXAMINATION: GENERAL: He is alert and oriented. VITAL SIGNS: Blood pressure is 110/70 and pulse is regular at 89. He is afebrile. HEENT: He is normocephalic. Pupils are equal and reactive to light. Extraocular muscles are intact bilaterally. NECK: The neck veins are flat. Carotids have good upstrokes bilaterally without bruits. Thyroid is nonpalpable. RESPIRATORY: Breath sounds equal bilaterally and clear to auscultation. CARDIOVASCULAR: Heart has a regular rhythm. Normal S1 and S2. No S3 or S4. No cardiac rubs or murmurs. GASTROINTESTINAL: Abdomen is soft and nontender without organomegaly. EXTREMITIES: Free of edema, digit clubbing, or cyanosis. NEUROLOGIC: Grossly intact. SKIN: Warm to touch. LYMPH NODES: Negative to palpation. LABORATORY DATA: Hemoglobin on admission was 7.9. After a single unit of packed red blood cells, it is 9.0. INR on admission was 1.8. IMPRESSION: 1. Recent open heart surgery with mitral valve replacement with a bioprosthesis and single vessel bypass. 2. Chronic end-stage renal disease, on peritoneal dialysis. 3. Epistaxis, hematochezia and easy bruising on Coumadin with a previous spontaneous bleeding while anticoagulated. 4. History of a thrombotic event to the left lower extremity. RECOMMENDATIONS: I had a lengthy discussion with the patient regarding the anticoagulation, regarding the risk versus benefit. At this point, he is refusing warfarin and I believe that this is not unreasonable. He does have an increased risk of additional embolic events and possible stroke, but considering his previous bleeding history, I think that anticoagulation is too high risk for this patient. His engineer station mainline has been consulted and he will be started back on peritoneal dialysis. He should remain on his other discharge medications from his recent open heart surgery and instead of Coumadin, I would just keep him on aspirin 81 mg daily. We will follow along with you during his hospital stay. [facility]
[2017-09-01] MEDS ORDERED: HYDROCORTISONE 1% CR 30 GM TUBE EXT PRN (11:15)
--- NOTE | 2017-09-01 11:25 | History and Physical ---
History & Physical Date & Time of Service: Sep 01, 2017 at 08:16 Chief Complaint: Anemia, Rectal Bleeding Primary Care Physician: Flakito Martinez M.D. History of Present Illness Source: patient, hospital records Patient is a 62-year-old male who presented with concerns for persistent episodes of bleeding and feeling lightheaded. Most recently, the patient has been treated for an acute arterial occlusion of his left femoral vessel causing ischemic left foot requiring intervention at this facility 2 weeks ago. He was found to have a large mitral valve vegetation at that time and transferred to [facility] where he underwent bioprosthetic valve replacement of his mitral valve. In addition, he had CABG 1 vessel. His hospital stay was abbreviated by the patient's wishes to be discharged home. Over the past few days, he reports that he has had worsening bleeding while picking at his scabs. He also reports some blood in his nose as well as bright red blood with wiping after a BM, and in his peritoneal dialysate . No melena, no hematemesis or melena. He does report a history of hemorrhoids on a colonoscopy from 2016. He is concerned that the Coumadin is thin his blood and given him issues. He was started on coumadin in the last 2 weeks presumably for his h/o PAF while at [place]. He had been off of it since his hgb was found to be 4 in 2016. He also thinks he is dehydrated based on his PD dialysate. He was seen in the emergency department on the for the same complaints and refused to be admitted at that point and also refused for the emergency provider to contact his surgeon at [place]. Hgb on arrival in ER was 7.9 which is 1 gram lower than when he was here 2 weeks ago. The emergency department provider spoke with the patient's surgeon at [facility]. The surgeon did accept the patient for transfer to [facility]. The patient was reluctant and refused to be transferred at that time. He also suggests that the patient's INR be corrected with vitamin K. He also suggests transfusion for worsening anemia. He suggests discontinuing the Coumadin of which the patient was only to stay on for one month. He does recommend continuing with the aspirin. Pt was then admitted to the ICU given the complex medical issues and possibility of further GI bleeding. The patient has a history of end-stage renal disease for which he receives peritoneal dialysis daily. He has followed with [facility], but most recently reports that he is changed to follow with Dr. Martinez for Nephrology. This AM, he is feeling better after receiving 1 unit PRBCs overnight. Not lightheaded, still feels his mouth is dry. He describes 2 months of very painful and hot nodules forming on his joints, as well as multiple pruritic skin lesions on extremities. The nodules would get better with prednisone courses given by PCP, and was started on allopurinol for presumed gout. He reports since his surgery for his caseating mitral valve vegetation last week, he has not had any further trouble with his joints. He reports his ESR was 120 last week at [facility] and he was seen by Rheumatology down there, but is not sure what/if any diagnoses were made. 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 fib - no longer on anticoagulation h/o type 2 NSTEMI in setting of severe anemia h/o left-side hemothorax in setting of coumadin use s/p hemothorax evacuation by Dr. Nathaniel Santillan gout inflammatory arthritis? 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) Multi-Drug Resistant Organisms History of MDRO: No Allergies Coded Allergies: No Known Allergies (Unverified , 08/31/17) Home Medications Scheduled Amiodarone Hcl (Cordarone), 200 MG PO QPM Aspirin (Aspirin Ec), 81 MG PO BID B-Complex W/ C & Folic Acid (Triphrocaps), 1 CAP PO DAILY Carvedilol (Coreg), 12.5 MG PO BID Cinacalcet (Sensipar), 30 MG PO QPM Docusate Sodium (Docusate Sodium), 1 CAP PO BID Magnesium Oxide (Mg Supplement (Magnesium), 500 MG PO 2XWK Senna (Senokot), 1 TAB PO BID Sucroferric Oxyhydroxide (Velphoro), 500 MG PO UD Sucroferric Oxyhydroxide (Velphoro), 1,000 MG PO AC Tiotropium [place] (Spiriva Handihaler), 1 CAP INH DAILY Warfarin Sod (Coumadin), 2.5 MG PO DAILY Scheduled PRN Calcium Carbonate (Tums), 500 MG PO UD PRN for Indigestion Diphenhydramine Hcl (Benadryl), 75 MG PO HS PRN for Sleep Fluticasone Propionate (Nasal) (Flonase Allergy Relief), 2 SPRAYS RAFAEL DAILY PRN for Allergy Symptoms Tramadol (Ultram), 50 MG PO Q6 PRN for Pain Review of Systems Constitutional: No fever, No chills Eyes: No problem reported ENT: + problem reported (dry mouth) Respiratory: No shortness of breath Cardiovascular: No chest pain Abdomen: + GI bleeding, No diarrhea, No constipation Musculoskeletal: No joint pain Genitourinary - Male: + hematuria Neurologic: + problem reported (tremor in hands) Psychiatric: No problem reported Endocrine: No problem reported Hematologic / Lymphatic: + abnormal bleeding/bruising Integumentary: + rash, + itch, + new/changing skin lesions (but have improved since heart valve surgery), + bleeding Allergic / Immunologic: No problem reported Physical Exam Vital Signs Date Time Temp Pulse Resp B/P (MAP) Pulse Ox O2 Delivery O2 Flow Rate FiO2 09/01/17 07:00 81 10 152/76 (101) 98 09/01/17 06:30 85 25 149/70 (96) 96 09/01/17 06:00 85 9 125/73 (90) 96 09/01/17 05:30 87 23 142/69 (93) 93 09/01/17 05:00 99 30 126/96 (106) 93 09/01/17 04:30 89 16 156/77 (103) 94 09/01/17 04:16 36.6 88 20 93/80 92 Room Air 09/01/17 04:00 36.3 88 25 151/77 (101) 95 09/01/17 03:30 88 15 157/73 (101) 98 09/01/17 03:00 36.6 89 18 142/78 (99) 94 09/01/17 01:32 37.0 89 16 112/71 95 09/01/17 01:09 37.0 97 18 134/75 96 09/01/17 00:48 36.8 91 18 126/80 99 09/01/17 00:14 110 18 114/82 93 Room Air 08/31/17 23:09 87 08/31/17 22:00 89 20 132/90 98 Room Air 08/31/17 20:00 94 20 118/73 94 Room Air 08/31/17 19:37 94 08/31/17 18:00 85 18 146/75 98 Room Air 08/31/17 16:35 89 16 127/75 98 Room Air 08/31/17 16:27 Room Air 08/31/17 15:30 87 08/31/17 14:50 36.6 88 18 116/64 98 Room Air General Appearance: WD/WN, no apparent distress Head: normocephalic, atraumatic Eyes: normal inspection, EOMI ENT: hearing grossly normal, + pertinent finding (mildly dry mucus membranes) Neck: no JVD, trachea midline Respiratory/Chest: no respiratory distress, no accessory muscle use, + decreased breath sounds (at bases slightly) Cardiovascular: regular rate, rhythm, no edema, no murmur, + pertinent finding (1+ DP pulses bilat; +splinter hemorrgaes in some fingernails and toenails, no joint nodules) Abdomen/GI: normal bowel sounds, non tender, soft, + pertinent finding ( previous chest tube sites healing, PD tube insertion site appears normal, no leaking of blood) Back: normal inspection Extremities/Musculoskelatal: no calf tenderness, no pedal edema, + pertinent finding (multiple small, nonblanching erythematous 2-3mm lesions, some scabbed over) Neurologic/Psych: alert, normal mood/affect, oriented x 3 Skin: + rash (as above) Diagnostics Laboratory Results Results Past 24 Hours Test 08/31/17 16:25 09/01/17 04:19 09/01/17 07:34 09/01/17 08:12 Range/Units White Blood Count 8.79 8.69 4.8-10.8 K/uL Red Blood Count 2.59 2.96 4.7-6.1 M/uL Hemoglobin 7.9 9.0 14.0-18.0 g/dL Hematocrit 25.3 28.6 42-52 % Mean Corpuscular Volume 97.7 96.6 80-100 fL Mean Corpuscular Hemoglobin 30.5 30.4 25-34 pg Mean Corpuscular Hemoglobin Concent 31.2 31.5 32-36 g/dl Platelet Count 103 99 130-400 K/uL Mean Platelet Volume 9.9 10.1 7.4-10.4 fL Neutrophils (%) (Auto) 62.7 % Lymphocytes (%) (Auto) 11.0 % Monocytes (%) (Auto) 15.1 % Eosinophils (%) (Auto) 1.0 % Basophils (%) (Auto) 0.6 % Neutrophils # (Auto) 5.51 1.4-6.5 K/uL Lymphocytes # (Auto) 0.97 1.2-3.4 K/uL Monocytes # (Auto) 1.33 0.11-0.59 K/uL Eosinophils # (Auto) 0.09 0-0.5 K/uL Basophils # (Auto) 0.05 0-0.2 K/uL RDW Standard Deviation 60.5 57.5 36.4-46.3 fL RDW Coefficient of Variation 18.3 17.4 11.5-14.5 % Immature Granulocyte % (Auto) 9.6 % Immature Granulocyte # (Auto) 0.84 0.00-0.02 K/uL Nucleated RBC Absolute Count (auto) 0.11 0.15 0-0 K/uL Nucleated Red Blood Cells % 1.2 1.7 % Polychromasia 1+ Stomatocytes 1+ Prothrombin Time 18.5 9.0-12.0 SECONDS Prothromb Time International Ratio 1.8 0.9-1.1 Activated Partial Thromboplast Time 41.0 21.0-31.0 SECONDS Partial Thromboplastin Ratio 1.6 Sodium Level 133 131 136-145 mmol/L Potassium Level 5.2 5.2 3.5-5.1 mmol/L Chloride Level 95 94 98-107 mmol/L Carbon Dioxide Level 31 30 21-32 mmol/L Anion Gap 7.0 7.0 3-11 mmol/L Blood Urea Nitrogen 68 74 7-18 mg/dl Creatinine 15.40 16.30 0.60-1.40 mg/dl Est Creatinine Clear Calc Drug Dose 5.9 5.5 ml/min Estimated GFR () 3.4 3.2 Estimated GFR (Non- 2.9 2.7 BUN/Creatinine Ratio 4.3 4.5 10-20 Random Glucose 78 77 70-99 mg/dl Calcium Level 8.8 8.6 8.5-10.1 mg/dl Total Bilirubin 0.4 0.5 0.2-1 mg/dl Direct Bilirubin 0.1 0.2 0-0.2 mg/dl Aspartate Amino Transf (AST/SGOT) 18 17 15-37 U/L Alanine Aminotransferase (ALT/SGPT) 9 8 12-78 U/L Alkaline Phosphatase 95 92 45-117 U/L Total Protein 5.8 5.7 6.4-8.2 gm/dl Albumin 2.4 2.5 3.4-5.0 gm/dl Lipase 152 73-393 U/L Neutrophils % (Manual) 70.8 % Lymphocytes % (Manual) 12.9 % Monocytes % (Manual) 11.2 % Basophils % (Manual) 1.7 0-2 % Metamyelocytes % 3.4 % Neutrophils # (Manual) 6.15 1.4-6.5 K/uL Total Absolute Neutrophils 6.15 1.4-6.5 K/uL Lymphocytes # (Manual) 1.12 1.2-3.4 K/uL Total Absolute Lymphocytes 1.12 1.2-3.4 K/uL Monocytes # (Manual) 0.97 0.11-0.59 K/uL Basophils # (Manual) 0.15 0-0.2 K/uL Metamyelocytes # 0.30 0-0 K/uL Platelet Estimate DECREASED Red Blood Cell Morphology Unremarkable Phosphorus Level 5.2 2.5-4.9 mg/dl Magnesium Level 2.4 1.8-2.4 mg/dl Microbiology Results 09/01/17 MRSA DNA Surveillance Screen, Received Pending Diagnostic Radiology CXR image personally reviewed by me and agree with Rad report below: CHEST ONE VIEW PORTABLE CLINICAL HISTORY: GI bleed. Recent open heart surgery. COMPARISON STUDY: History of August 29, 2017. FINDINGS: There are median sternotomy wires and a prosthetic cardiac valve. Moderate enlargement of the cardiac silhouette is unchanged. There is no no evidence for pulmonary edema. A suspected small left pleural effusion is noted with left basilar opacity. This is similar to prior exam. IMPRESSION: 1. Stable enlargement of the cardiac silhouette without evidence of pulmonary edema. 2. Suspected small left pleural effusion with left basilar opacity which could reflect atelectasis or consolidation. EKG ECG with iLBBB, TWIs lateral leads, NSR, previous ECG with LBBB Impression Assessment and Plan Patient is a 62-year-old male with complex PMH of recent MVR and 1vCABG for large caseating/noninfectious MV mass discovered after acute ischemic LLE with femoral artery embolus. ALso with h/o ESRD on PD, HTN, and anemia of CKD who presented with concerns for persistent episodes of bleeding (epistaxis,in peritoneal dialysate,rectally, and from skin lesions) and feeling lightheaded. Hgb on admission is 1 gram lower than on admission 2 weeks ago. Had gross blood on rectal exam. Recently placed on coumadin at [facility] after MVR ( bioprosthetic). Acute on chronic anemia of CKD, some mild blood loss/BRBPR- INR 1.8 and reversed with Vit K, received 1 unit PRBCs, hgb now up to 9 from 7.9, no longer feeling lightheaded, BPs good. -follow CBC -appreciate GI consult -had scopes last year with hemorrhoids, not likely to need scope again -stool softeners -reversed coumadin and will no longer be on this Recent MVR/CABG/CAD/PAF/Femoral artery embolus- in NSR here, on amiodarone. Cannot tolerate coumadin due to bleeding and should remain off anticoagulation. MV vegetation was likely causing emboli with joint nodules, skin lesions, splinter hemorrhages, had ESR reportedly of 120-question if had Libman-Sachs endocarditis? States that his joint nodules and pains were previously improving with short courses of prednisone, not clear. -Cardiology recommendations appreciated -remain on ASA 81mg daily, Coreg, not on statin for unclear reasons -no further AC with coumadin due to bleeding and h/o severe anemia -Consult Rheumatology -repeat ESR ESRD on PD- d/w Nephrology -plan for PD tonight and will remove less fluid given his recent low BPs at home and c/o lightheadedness, mild blood loss HTN-on Coreg as above, stable Proph- SCDs only due to bleeding Dispo-d/w Marketing Development Specialist, ok to transfer to tele FULL CODE confirmed with pt-will change order Advanced Directives Existing Living Will: Yes Existing Power of Manager Law: Yes Resuscitation Status FULL RESUSCITATION VTE Prophylaxis VTE Risk Assessment Done? Y/N: Yes Risk Level: High Given or contraindicated: SCD's, Contraindicated Note Total Time: Critical Care 30 - 74 minutes Additional Copies To Flakito Martinez M.D.
[2017-09-01] MEDS: SUCROFERRIC OXYHYDROXIDE 500 MG PO SCH ×3 (11:30→16:49)
[2017-09-01] MEDS ORDERED: SUCROFERRIC OXYHYDROXIDE 500 MG PO PRN (11:30)
--- NOTE | 2017-09-01 12:00 | NUR ---
OOB and standing at bedside. Upset that he can not get the internet to work on his computer. VS stable. Picking at scabs on leg and bleeding at times.
--- NOTE | 2017-09-01 12:20 | Gastrointestinal Consultation ---
Gastrointestinal Consultation Date of Consultation: Sep 01, 2017 Attending Physician: Indira Davis Consulting Physician: Mark Rainey Reason for Consultation: ? lower GI bleeding on Coumadin History of Present Illness Patient is a 62 year old male w PMHx of ESRD, GI bleed, HTN, L hemothorax, NSTEMI, recent mitral valve replacement w CABG x 1 vessel on 08/23/17 at [facility] who presented to ED w c/o hematochezia. He felt he's been bleeding throughout his body. Given his recent cardiac surgery, he's been on ASA and Coumadin. INR was 1.8. H/H at baseline. Hgb 7.8, given 1U PRBC now 9. VS stable. BUN and Cr up, he has ESRD on peritoneal dialysis. Pt reports that he feels his rectal bleeding was related to hemorrhoids. Was having some rectal pain and itching one time when bleeding happened during defecation. He did have EGD/Colonoscopy for anemia done 12/2015 - EGD showed normal exam except flattened duodenum mucosa but bx normal. Colonoscopy showed hyperplastic and TA polyps, and large ext hemorrhoid. VCE had been ordered but I didn't see results for this. Past Medical/Surgical History Medical Problems: (1) Abnormal EKG Status: Acute (2) Altered mental status Status: Acute (3) Anemia Status: Acute (4) Anemia Status: Acute (5) Anemia Status: Acute (6) Anemia Status: Acute (7) Anticoagulant effect Status: Acute (8) ARF (acute renal failure) Status: Acute (9) Bleeding Status: Acute (10) Chest wall pain Status: Acute (11) Coagulopathy Status: Acute (12) Electrocardiogram showing T wave abnormalities Status: Acute (13) Fatigue Status: Acute (14) Hyperkalemia Status: Acute (15) Pancreatitis Status: Acute (16) Pericardial effusion without cardiac tamponade Status: Acute (17) Pleural effusion, left Status: Acute (18) Rectal bleeding Status: Acute (19) Renal failure Status: Acute (20) Supratherapeutic INR Status: Acute (21) Upper GI bleed Status: Acute Past Medical History: See above Past Surgical History: See above, wisdom teeth removal Family History Diabetes mellitus FATHER FH: CHF (congestive heart failure) FATHER Hypertension FATHER Social History Smoking Status: Former Smoker Alcohol Use: occasionally Drug Use: none Marital Status: Housing Status: lives with significant other 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, 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) Allergies Coded Allergies: No Known Allergies (Unverified , 08/31/17) Current Medications Home Meds and Scripts Medications Dose Route/Sig Max Daily Dose Days Date Category Dose Instructions Coreg (Carvedilol) 12.5 Mg Tab 12.5 Mg PO BID 08/31/17 Reported Senokot (Senna) 8.6 Mg Tab 1 Tab PO BID 08/31/17 Reported Docusate Sodium 100 Mg Cap 1 Cap PO BID 08/31/17 Reported Ultram (Tramadol HCl) 50 Mg Tab 50 Mg PO Q6 PRN 08/31/17 Reported Coumadin (Warfarin Sod) 2.5 Mg Tab 2.5 Mg PO DAILY 08/29/17 Reported TAKE 2.5 MG EVERY DAY OR OTHERWISE DIRECTED TO TAKE BY ANTICOAGULATION CLINIC/MD Aspirin Ec (Aspirin) 81 Mg Tab 81 Mg PO BID 08/29/17 Reported Tums (Calcium Carbonate) 500 Mg Chew 500 Mg PO UD PRN 08/17/17 Reported TAKE PER PACKAGE DIRECTIONS Flonase Allergy Relief (Fluticasone Propionate (Nasal)) 50 Mcg/Act Spr 2 Sprays RAFAEL DAILY PRN 08/17/17 Reported Spiriva Handihaler (Tiotropium [place]) 30 Puff/540 Mcg Aerp 1 Cap INH DAILY 08/17/17 Reported Triphrocaps (B-Complex W/ C & Folic Acid) 1 Cap Cap 1 Cap PO DAILY 08/17/17 Reported Magnesium (Magnesium Oxide (Mg Supplement) 500 Mg Cap 500 Mg PO 2XWK 08/17/17 Reported Cordarone (Amiodarone Hcl) 200 Mg Tab 200 Mg PO QPM 06/02/17 Reported Velphoro (Sucroferric Oxyhydroxide) 500 Mg Chw 1,000 Mg PO AC 06/02/17 Reported Velphoro (Sucroferric Oxyhydroxide) 500 Mg Chw 500 Mg PO UD 06/02/17 Reported TAKE ONE TAB WITH SNACKS Sensipar (Cinacalcet) 30 Mg Tab 30 Mg PO QPM 04/28/17 Reported Benadryl (Diphenhydramine Hcl) 25 Mg Cap 75 Mg PO HS PRN 04/28/17 Reported Review of Systems Constitutional: No fever, No chills Respiratory: No cough, No shortness of breath Cardiac: No chest pain Abdomen: + see HPI, + GI bleeding, No pain, No nausea, No vomiting Physical Exam Date Time Temp Pulse Resp B/P (MAP) Pulse Ox O2 Delivery O2 Flow Rate FiO2 09/01/17 10:00 93 18 126/82 (97) 98 Room Air 09/01/17 08:00 Room Air 09/01/17 08:00 37.1 90 19 147/77 (100) 92 Room Air 09/01/17 08:00 Room Air 09/01/17 07:00 81 10 152/76 (101) 98 09/01/17 06:30 85 25 149/70 (96) 96 09/01/17 06:00 85 9 125/73 (90) 96 09/01/17 05:30 87 23 142/69 (93) 93 09/01/17 05:00 99 30 126/96 (106) 93 09/01/17 04:30 89 16 156/77 (103) 94 09/01/17 04:16 36.6 88 20 93/80 92 Room Air 09/01/17 04:00 36.3 88 25 151/77 (101) 95 09/01/17 03:30 88 15 157/73 (101) 98 09/01/17 03:00 36.6 89 18 142/78 (99) 94 09/01/17 01:32 37.0 89 16 112/71 95 09/01/17 01:09 37.0 97 18 134/75 96 09/01/17 00:48 36.8 91 18 126/80 99 09/01/17 00:14 110 18 114/82 93 Room Air 08/31/17 23:09 87 08/31/17 22:00 89 20 132/90 98 Room Air 08/31/17 20:00 94 20 118/73 94 Room Air 08/31/17 19:37 94 08/31/17 18:00 85 18 146/75 98 Room Air 08/31/17 16:35 89 16 127/75 98 Room Air 08/31/17 16:27 Room Air 08/31/17 15:30 87 08/31/17 14:50 36.6 88 18 116/64 98 Room Air General Appearance: WD/WN, no apparent distress, + obese Eyes: normal inspection, PERRL, EOMI Neck: supple, no JVD, trachea midline Respiratory/Chest: normal breath sounds, no respiratory distress, no accessory muscle use Cardiovascular: regular rate, rhythm, no gallop, no murmur Abdomen: normal bowel sounds, non tender, soft, + pertinent finding (Rectal exam: external small perianal skin tags, internal - unable to advance finger much due to pt's discomfort but no obvious masses felt and no signs of rectal bleeding; + greenish/brown stool on gloved finger. ) Extremities: normal inspection, no pedal edema, no calf tenderness Neurologic/Psych: alert, normal mood/affect, oriented x 3 Skin: normal color, no jaundice, no rash Laboratory Results Last 24 Hours Test 08/31/17 16:25 09/01/17 04:19 09/01/17 07:34 09/01/17 09:02 White Blood Count 8.79 K/uL 8.69 K/uL Red Blood Count 2.59 M/uL 2.96 M/uL Hemoglobin 7.9 g/dL 9.0 g/dL 8.6 g/dL Hematocrit 25.3 % 28.6 % 26.2 % Mean Corpuscular Volume 97.7 fL 96.6 fL Mean Corpuscular Hemoglobin 30.5 pg 30.4 pg Mean Corpuscular Hemoglobin Concent 31.2 g/dl 31.5 g/dl Platelet Count 103 K/uL 99 K/uL Mean Platelet Volume 9.9 fL 10.1 fL Neutrophils (%) (Auto) 62.7 % Lymphocytes (%) (Auto) 11.0 % Monocytes (%) (Auto) 15.1 % Eosinophils (%) (Auto) 1.0 % Basophils (%) (Auto) 0.6 % Neutrophils # (Auto) 5.51 K/uL Lymphocytes # (Auto) 0.97 K/uL Monocytes # (Auto) 1.33 K/uL Eosinophils # (Auto) 0.09 K/uL Basophils # (Auto) 0.05 K/uL RDW Standard Deviation 60.5 fL 57.5 fL RDW Coefficient of Variation 18.3 % 17.4 % Immature Granulocyte % (Auto) 9.6 % Immature Granulocyte # (Auto) 0.84 K/uL Nucleated RBC Absolute Count (auto) 0.11 K/uL 0.15 K/uL Nucleated Red Blood Cells % 1.2 % 1.7 % Polychromasia 1+ Stomatocytes 1+ Prothrombin Time 18.5 SECONDS 11.7 SECONDS Prothromb Time International Ratio 1.8 1.1 Activated Partial Thromboplast Time 41.0 SECONDS Partial Thromboplastin Ratio 1.6 Sodium Level 133 mmol/L 131 mmol/L Potassium Level 5.2 mmol/L 5.2 mmol/L Chloride Level 95 mmol/L 94 mmol/L Carbon Dioxide Level 31 mmol/L 30 mmol/L Anion Gap 7.0 mmol/L 7.0 mmol/L Blood Urea Nitrogen 68 mg/dl 74 mg/dl Creatinine 15.40 mg/dl 16.30 mg/dl Est Creatinine Clear Calc Drug Dose 5.9 ml/min 5.5 ml/min Estimated GFR () 3.4 3.2 Estimated GFR (Non- 2.9 2.7 BUN/Creatinine Ratio 4.3 4.5 Random Glucose 78 mg/dl 77 mg/dl Calcium Level 8.8 mg/dl 8.6 mg/dl Total Bilirubin 0.4 mg/dl 0.5 mg/dl Direct Bilirubin 0.1 mg/dl 0.2 mg/dl Aspartate Amino Transf (AST/SGOT) 18 U/L 17 U/L Alanine Aminotransferase (ALT/SGPT) 9 U/L 8 U/L Alkaline Phosphatase 95 U/L 92 U/L Total Protein 5.8 gm/dl 5.7 gm/dl Albumin 2.4 gm/dl 2.5 gm/dl Lipase 152 U/L Neutrophils % (Manual) 70.8 % Lymphocytes % (Manual) 12.9 % Monocytes % (Manual) 11.2 % Basophils % (Manual) 1.7 % Metamyelocytes % 3.4 % Neutrophils # (Manual) 6.15 K/uL Total Absolute Neutrophils 6.15 K/uL Lymphocytes # (Manual) 1.12 K/uL Total Absolute Lymphocytes 1.12 K/uL Monocytes # (Manual) 0.97 K/uL Basophils # (Manual) 0.15 K/uL Metamyelocytes # 0.30 K/uL Platelet Estimate DECREASED Red Blood Cell Morphology Unremarkable Phosphorus Level 5.2 mg/dl Magnesium Level 2.4 mg/dl Test 09/01/17 10:49 Impression Patient is a 62 year old male seen for hematochezia which had resolved. . He had recent mitral valve replacement w 1 vessel CABG on 08/23/17 at [facility] , been on Coumadin and ASA. Last EGD/Colonoscopy 12/2015. He is anemic on presentation but H/H at baseline s/p 1U PRBC transfusion. Anemia likely due to chronic disease (ESRD) Plan - Will defer endoscopic workup given recent cardiac surgery also no signs of active GI bleeding at this time. - Would order Hydrocortisone [place] cream to use prn hemorrhoidal bleeding. - Monitor H/H and transfuse prn - Coordinate care and use of anticoagulation w Cardiovascular Surgeon at [facility] [place] - Nephrology following. ATTESTATION: I have performed a history and physical examination of this patient and reviewed the electronic record. Specifically, on physical examination there is no abdominal tenderness. I have discussed the case with ROBBY Alfonso. The above note reflects my findings, conclusions, and recommendations. Mark Rainey MD
[2017-09-01] MEDS ORDERED: HYDROCORTISONE HC 2.5% CRM 30GM TUBE EXT PRN (12:30)
--- NOTE | 2017-09-01 13:24 | Rheumatology Consultation ---
Rheumatology Consultation Date of Consultation: Sep 01, 2017. Requesting Physician: Dr Davis Attending Physician: Dr Davis Reason for Consultation: recent leg emboli, MVR secondary to vegetation - ? CTD related vs septic emboli History of Present Illness Mr Grullon this 62-year-old gentleman with known end-stage renal disease on peritoneal dialysis, hypertension, history of coronary artery disease who presented to [facility] several weeks ago with ischemia to his left limb. He was found to have clot that was surgically removed and pathology was consistent with blood clot. During the workup he was found to have a mitral valve vegetation was transferred to [facility] in [place]. He arrived on antibiotics and all cultures there were negative. He did undergo mitral valve replacement with bioprosthetic valve. The surgical pathology is still pending. He reports that prior to his recent hospitalizations he has been doing with some migratory arthritis complaints over the last several months. He states that his primary care doctor felt it was gout related given the description is started him on allopurinol. He was unclear of the dose but appears was 100 milligrams a day. He states he took that for about 2 months but he was still having arthritis flare so we stopped it. He reports that the only thing that would help was prednisone and he would be self treating himself with short tapers. He reports that he even filled his own prescriptions for what I am guessing is steroids to treat the arthritis. 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 His [facility] chart as well as recent hospitalization chart was reviewed. He was seen by Rheumatology during his stay at [facility] in a felt that his arthritis complaints for micro crystalline related. At the time he was doing better when seen by Rheumatology in the suggested tapering off his prednisone and having outpatient follow-up with the Rheumatology Department here in [place] since your a had an appointment scheduled. He had extensive workup while at [facility] that showed an NANCY negative 3 times, rheumatoid factor was 16 and sed rate was greater than 120. Prior to transfer to [facility] he had a clotting workup done at [facility] that was normal and this did include anticardiolipin antibodies. He re-presented to the hospital yesterday because of bleeding as well as feeling dizzy and lightheaded. He was found to have an elevated INR and was anemic. His Coumadin was discontinued his treated for his elevated INR and was given 1 unit of red blood cells and now he is feeling better. He reports to me that since having valley surgery his arthritis pains of gone away there are no longer an issue. He is in the process of switching his clinic nurse and primary care doctor. His uric acid was elevated at 8.7 a few weeks ago while in the hospital. He also reports a history of Raynaud 's for the last couple years which mainly occurs in his hands. He also reports some skin lesions that occur mainly on his legs. He is unclear on the timing of these lesions but seems likely been going on for the last several years. She reports the lesions on his fingers are related to his blood sugar checks and has nothing to do with the lesion he develops on his legs. I did contact the pathology department at [facility] regarding his surgical path and that is still pending because of special studies. The path cigar maker did let me know in frozen section report indicates calcium along with bacteria being seen. 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 He does report some gas and diarrhea of related to his phosphorus treatments for his dialysis and hyperphosphotemia. 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) Review of Systems Constitutional: + weakness, No fever, No chills Cardiac: + see HPI Abdomen: + see HPI Musculoskeletal: + see HPI Skin: + see HPI All Other Systems: Reviewed and Negative Allergies Coded Allergies: No Known Allergies (Unverified , 08/31/17) Medications Current Inpatient Medications Medications (Trade) Dose Ordered Sig/Aleksandra Route Start Time Stop Time Status Last Admin Dose Admin Amiodarone HCl (Cordarone Tab) 200 mg QPM PO 09/01/17 21:00 10/01/17 20:59 Vitamin B Complex/ Vit C/Folic Acid (Nephrocaps) 1 cap DAILY PO 09/01/17 09:00 10/01/17 08:59 09/01/17 07:59 1 CAP Calcium Carbonate (Tums Chew Tab) 500 mg UD PRN PO 09/01/17 03:15 10/01/17 03:14 Carvedilol (Coreg Tab) 12.5 mg BID PO 09/01/17 09:00 10/01/17 08:59 Diphenhydramine HCl (Benadryl Cap) 75 mg HS PRN PO 09/01/17 03:15 10/01/17 03:14 Docusate Sodium (coLACE CAP) 100 mg BID PO 09/01/17 09:00 10/01/17 08:59 Fluticasone Propionate (Flonase Nasal [employer]) 2 sprays DAILY PRN RAFAEL 09/01/17 03:15 10/01/17 03:14 Senna (Senokot Tab) 8.6 mg BID PO 09/01/17 09:00 10/01/17 08:59 09/01/17 07:59 8.6 MG Tiotropium [place] (Spiriva Handihaler Inhaler) 1 puff DAILY INH 09/01/17 09:00 10/01/17 08:59 09/01/17 07:58 1 PUFF Tramadol HCl (Ultram Tab) 50 mg Q6 PRN PO 09/01/17 03:15 10/01/17 03:14 Nicotine (Nicoderm Cq 21MG Patch) 1 patch QAM PRN TD 09/01/17 06:45 10/01/17 06:44 Miscellaneous (Remove Nicoderm Patch) 1 ea DAILY PRN N/A 09/01/17 07:00 10/01/17 06:59 Hydrocortisone (Hydrocortisone 1% Crm) 1 appln BID PRN EXT 09/01/17 11:15 10/01/17 11:14 Aspirin (Ecotrin Tab) 81 mg DAILY PO 09/02/17 09:00 10/01/17 08:59 Simethicone (Mylicon Chew Tab) 80 mg Q6H PRN PO 09/01/17 11:30 10/01/17 11:29 Miscellaneous Information (Order Awaiting Action) 1 ea QS N/A 09/01/17 12:00 10/01/17 11:59 Non-Formulary Medication (Non-Formulary Patient'S Own Med) 2 ea AC PO 09/01/17 11:30 10/01/17 11:29 Non-Formulary Medication (Non-Formulary Patient'S Own Med) 1 ea UD PRN PO 09/01/17 11:30 10/01/17 11:29 Hydrocortisone (Proctozone Hc 2.5% Crm) 1 appln BID PRN EXT 09/01/17 12:30 10/01/17 12:29 UNV Physical Exam Date Time Temp Pulse Resp B/P (MAP) Pulse Ox O2 Delivery O2 Flow Rate FiO2 09/01/17 12:00 Room Air 09/01/17 12:00 37.1 98 19 123/73 (90) 98 Room Air 09/01/17 10:00 93 18 126/82 (97) 98 Room Air 09/01/17 08:00 Room Air 09/01/17 08:00 37.1 90 19 147/77 (100) 92 Room Air 09/01/17 08:00 Room Air 09/01/17 07:00 81 10 152/76 (101) 98 09/01/17 06:30 85 25 149/70 (96) 96 09/01/17 06:00 85 9 125/73 (90) 96 09/01/17 05:30 87 23 142/69 (93) 93 09/01/17 05:00 99 30 126/96 (106) 93 09/01/17 04:30 89 16 156/77 (103) 94 09/01/17 04:16 36.6 88 20 93/80 92 Room Air 09/01/17 04:00 36.3 88 25 151/77 (101) 95 09/01/17 03:30 88 15 157/73 (101) 98 09/01/17 03:00 36.6 89 18 142/78 (99) 94 09/01/17 01:32 37.0 89 16 112/71 95 09/01/17 01:09 37.0 97 18 134/75 96 09/01/17 00:48 36.8 91 18 126/80 99 09/01/17 00:14 110 18 114/82 93 Room Air 08/31/17 23:09 87 08/31/17 22:00 89 20 132/90 98 Room Air 08/31/17 20:00 94 20 118/73 94 Room Air 08/31/17 19:37 94 08/31/17 18:00 85 18 146/75 98 Room Air 08/31/17 16:35 89 16 127/75 98 Room Air 08/31/17 16:27 Room Air 08/31/17 15:30 87 08/31/17 14:50 36.6 88 18 116/64 98 Room Air General Appearance: WD/WN, no apparent distress Eyes: bilateral eyes normal inspection, bilateral eyes EOMI ENT: normal ENT inspection, hearing grossly normal, pharynx normal Respiratory: chest non-tender, lungs clear, normal breath sounds Cardiovascular: regular rate, rhythm, no edema Abdomen: normal bowel sounds, non tender, soft Musculoskeletal: No synovitis or tenderness noted No gouty tophi noted Skin: + pertinent finding (Multiple ecchymosis noted, some seborrheic keratosis noted on lower leg along with some mild erythematous and dry skin noted) Laboratory Results Last 24 Hours Test 08/31/17 16:25 09/01/17 04:19 09/01/17 07:34 09/01/17 09:02 White Blood Count 8.79 K/uL 8.69 K/uL Red Blood Count 2.59 M/uL 2.96 M/uL Hemoglobin 7.9 g/dL 9.0 g/dL 8.6 g/dL Hematocrit 25.3 % 28.6 % 26.2 % Mean Corpuscular Volume 97.7 fL 96.6 fL Mean Corpuscular Hemoglobin 30.5 pg 30.4 pg Mean Corpuscular Hemoglobin Concent 31.2 g/dl 31.5 g/dl Platelet Count 103 K/uL 99 K/uL Mean Platelet Volume 9.9 fL 10.1 fL Neutrophils (%) (Auto) 62.7 % Lymphocytes (%) (Auto) 11.0 % Monocytes (%) (Auto) 15.1 % Eosinophils (%) (Auto) 1.0 % Basophils (%) (Auto) 0.6 % Neutrophils # (Auto) 5.51 K/uL Lymphocytes # (Auto) 0.97 K/uL Monocytes # (Auto) 1.33 K/uL Eosinophils # (Auto) 0.09 K/uL Basophils # (Auto) 0.05 K/uL RDW Standard Deviation 60.5 fL 57.5 fL RDW Coefficient of Variation 18.3 % 17.4 % Immature Granulocyte % (Auto) 9.6 % Immature Granulocyte # (Auto) 0.84 K/uL Nucleated RBC Absolute Count (auto) 0.11 K/uL 0.15 K/uL Nucleated Red Blood Cells % 1.2 % 1.7 % Polychromasia 1+ Stomatocytes 1+ Prothrombin Time 18.5 SECONDS 11.7 SECONDS Prothromb Time International Ratio 1.8 1.1 Activated Partial Thromboplast Time 41.0 SECONDS Partial Thromboplastin Ratio 1.6 Sodium Level 133 mmol/L 131 mmol/L Potassium Level 5.2 mmol/L 5.2 mmol/L Chloride Level 95 mmol/L 94 mmol/L Carbon Dioxide Level 31 mmol/L 30 mmol/L Anion Gap 7.0 mmol/L 7.0 mmol/L Blood Urea Nitrogen 68 mg/dl 74 mg/dl Creatinine 15.40 mg/dl 16.30 mg/dl Est Creatinine Clear Calc Drug Dose 5.9 ml/min 5.5 ml/min Estimated GFR () 3.4 3.2 Estimated GFR (Non- 2.9 2.7 BUN/Creatinine Ratio 4.3 4.5 Random Glucose 78 mg/dl 77 mg/dl Calcium Level 8.8 mg/dl 8.6 mg/dl Total Bilirubin 0.4 mg/dl 0.5 mg/dl Direct Bilirubin 0.1 mg/dl 0.2 mg/dl Aspartate Amino Transf (AST/SGOT) 18 U/L 17 U/L Alanine Aminotransferase (ALT/SGPT) 9 U/L 8 U/L Alkaline Phosphatase 95 U/L 92 U/L Total Protein 5.8 gm/dl 5.7 gm/dl Albumin 2.4 gm/dl 2.5 gm/dl Lipase 152 U/L Neutrophils % (Manual) 70.8 % Lymphocytes % (Manual) 12.9 % Monocytes % (Manual) 11.2 % Basophils % (Manual) 1.7 % Metamyelocytes % 3.4 % Neutrophils # (Manual) 6.15 K/uL Total Absolute Neutrophils 6.15 K/uL Lymphocytes # (Manual) 1.12 K/uL Total Absolute Lymphocytes 1.12 K/uL Monocytes # (Manual) 0.97 K/uL Basophils # (Manual) 0.15 K/uL Metamyelocytes # 0.30 K/uL Platelet Estimate DECREASED Red Blood Cell Morphology Unremarkable Phosphorus Level 5.2 mg/dl Magnesium Level 2.4 mg/dl Test 09/01/17 10:49 Assessment & Plan Assessment & Plan: Dariel is a 62-year-old gentleman who presented with weakness, dizziness, and blood loss related to elevated INR. He had a recent mitral valve replacement surgery done secondary to a vegetation that may be septic in nature given the frozen path but final pathology is still pending at [facility]. Prior to his recent heart surgery he was doing with a migratory arthritis that could be micro crystalline related versus septic arthritis given the frozen pathology during his heart surgery. He is currently doing better since his heart surgery as reported by the patient. There is no signs of gouty arthritis at this time on exam. Is unclear to me the relation of the lower leg lesions to his recent medical history given the reports that they been present for 2-3 years. I doubt he has an autoimmune connective tissue disease such as systemic lupus that is lead to libman Sacchs disease given the surgical path frozen section report along with negative NANCY x3 during his recent hospitalization at [facility]. His elevated sed rate was likely related to the infective endocarditis along with his gouty arthritis. I contacted the hospitalist Dr Davis and discussed this case. I informed her that I doubt this is connective tissue disease related as mentioned above. Plan: 1. Would hold on restarting allopurinol therapy for now 2. If spikes fevers may need to reinstitute antibiotics given his frozen section results from [facility] 3. Await the final pathology from [facility] 4. No prednisone at this point in time 5. 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 Thank you for the consult involved me in this patient 's care
[2017-09-01 14:26] LABS: HEMATOCRIT 26.9 % (42-52); HEMOGLOBIN 8.5 g/dL (14.0-18.0)
--- NOTE | 2017-09-01 15:09 | NUR ---
case management note. social service for D/C planning. pt is a 30 day readmit. pt was hospitalized Aug 17- with ischemic foot and had been transferred to [place] for a bioprosthetic mitral valve replacement. met with pt at bedside. pt is A&O and states he lives with his and teenage son in a 2 story house with 1 REY[address]. he has first floor set up. He does not have any O2 or HH. pt is ESRD and has home peritoneal dialysis. 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 pt states he plans to return home and denies the need for any services. pt remains acutely ill in ICU at this time and D/C needs are uncertain. case management to follow.
--- NOTE | 2017-09-01 16:00 | NUR ---
Family at bedside to visit. VS stable. night custodian NSR.
--- NOTE | 2017-09-01 16:58 | Nephrology Consultation ---
Nephrology Consultation Date & Providers Date of Consultation: Sep 01, 2017. Primary Care Provider: Flakito Martinez M.D. Referring Provider: Reason for Consultation ESRD on peritoneal dialysis History of Present Illness Mr. Grullon is a 62 year old white male who is seenin the ICU this morning at the request of Dr. Huggins. Patient requires continuation of peritoneal dialysis during his hospitalization. Medical records in the EMR were reviewed and are summarized as follows: Mr. Grullon has ESRD on NCCPD, HTN, anemia, ASCVD and paroxysmal atrial fibrillation. Previous anticoagulation was complicated by L hemothorax. Earlier this month Mr. Grullon presented with acute LLE ischemia. He required emergency arterial thrombectomy. Evaluation revealed a negative NANCY, negative anticardiolipin Ab. 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 Patient was transferred to [facility] in [facility] and underwent bioprosthetic MVR. Histology of the vegetation was negative for infection. Post-op he was restarted on Warfarin due to his recent arterial thrombosis. Mr. Grullon presented to the [facility] ED 08/29 w/ complaints of bleeding. INR was therapeutic and Hgb was stable. Patient declined hospitalization. He returned last evening for evaluation of hematochezia. Hgb was 7.9 and INR was 1.8. Mr. Grullon declined transfer to [facility]. He was admitted to the [facility] ICU for blood transfusion, GI evaluation and peritoneal dialysis. 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 Surgical: # PD catheter insertion # L femoral artery thrombectomy # Bioprosthetic MVR and CABG x 1 [facility] 08/21 Allergies Coded Allergies: No Known Allergies (Unverified , 08/31/17) Inpatient Medications Current Inpatient Medications Medications (Trade) Dose Ordered Sig/Aleksandra Route Start Time Stop Time Status Last Admin Dose Admin Amiodarone HCl (Cordarone Tab) 200 mg QPM PO 09/01/17 21:00 10/01/17 20:59 Vitamin B Complex/ Vit C/Folic Acid (Nephrocaps) 1 cap DAILY PO 09/01/17 09:00 10/01/17 08:59 09/01/17 07:59 1 CAP Calcium Carbonate (Tums Chew Tab) 500 mg UD PRN PO 09/01/17 03:15 10/01/17 03:14 Carvedilol (Coreg Tab) 12.5 mg BID PO 09/01/17 09:00 10/01/17 08:59 Diphenhydramine HCl (Benadryl Cap) 75 mg HS PRN PO 09/01/17 03:15 10/01/17 03:14 Docusate Sodium (coLACE CAP) 100 mg BID PO 09/01/17 09:00 10/01/17 08:59 Fluticasone Propionate (Flonase Nasal [place]) 2 sprays DAILY PRN RAFAEL 09/01/17 03:15 10/01/17 03:14 Senna (Senokot Tab) 8.6 mg BID PO 09/01/17 09:00 10/01/17 08:59 09/01/17 07:59 8.6 MG Tiotropium [place] (Spiriva Handihaler Inhaler) 1 puff DAILY INH 09/01/17 09:00 10/01/17 08:59 09/01/17 07:58 1 PUFF Tramadol HCl (Ultram Tab) 50 mg Q6 PRN PO 09/01/17 03:15 10/01/17 03:14 Nicotine (Nicoderm Cq 21MG Patch) 1 patch QAM PRN TD 09/01/17 06:45 10/01/17 06:44 Miscellaneous (Remove Nicoderm Patch) 1 ea DAILY PRN N/A 09/01/17 07:00 10/01/17 06:59 Hydrocortisone (Hydrocortisone 1% Crm) 1 appln BID PRN EXT 09/01/17 11:15 10/01/17 11:14 Aspirin (Ecotrin Tab) 81 mg DAILY PO 09/02/17 09:00 10/01/17 08:59 Simethicone (Mylicon Chew Tab) 80 mg Q6H PRN PO 09/01/17 11:30 10/01/17 11:29 Miscellaneous Information (Order Awaiting Action) 1 ea QS N/A 09/01/17 12:00 10/01/17 11:59 Non-Formulary Medication (Non-Formulary Patient'S Own Med) 2 ea AC PO 09/01/17 11:30 10/01/17 11:29 Non-Formulary Medication (Non-Formulary Patient'S Own Med) 1 ea UD PRN PO 09/01/17 11:30 10/01/17 11:29 Hydrocortisone (Proctozone Hc 2.5% Crm) 1 appln BID PRN EXT 09/01/17 12:30 10/01/17 12:29 Family History Diabetes mellitus FATHER FH: CHF (congestive heart failure) FATHER Hypertension FATHER Negative for CKD/ESRD Social History Smoking Status: Former Smoker Smokeless Tobacco Use: No Alcohol Use: none Drug Use: none Marital Status: Housing Status: lives with family, lives with significant other 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 Review of Systems Constitutional: No fever Respiratory: No cough Cardiovascular: No chest pain Abdomen: No pain Integumentary: No rash A complete review of systems was performed. Pertinent positives are noted above. All other systems are negative. Physical Exam Date Time Temp Pulse Resp B/P (MAP) Pulse Ox O2 Delivery O2 Flow Rate FiO2 09/01/17 12:00 Room Air 09/01/17 12:00 37.1 98 19 123/73 (90) 98 Room Air 09/01/17 10:00 93 18 126/82 (97) 98 Room Air 09/01/17 08:00 Room Air 09/01/17 08:00 37.1 90 19 147/77 (100) 92 Room Air 09/01/17 08:00 Room Air 09/01/17 07:00 81 10 152/76 (101) 98 09/01/17 06:30 85 25 149/70 (96) 96 09/01/17 06:00 85 9 125/73 (90) 96 09/01/17 05:30 87 23 142/69 (93) 93 09/01/17 05:00 99 30 126/96 (106) 93 09/01/17 04:30 89 16 156/77 (103) 94 09/01/17 04:16 36.6 88 20 93/80 92 Room Air 09/01/17 04:00 36.3 88 25 151/77 (101) 95 09/01/17 03:30 88 15 157/73 (101) 98 09/01/17 03:00 36.6 89 18 142/78 (99) 94 09/01/17 01:32 37.0 89 16 112/71 95 09/01/17 01:09 37.0 97 18 134/75 96 09/01/17 00:48 36.8 91 18 126/80 99 09/01/17 00:14 110 18 114/82 93 Room Air 08/31/17 23:09 87 08/31/17 22:00 89 20 132/90 98 Room Air 08/31/17 20:00 94 20 118/73 94 Room Air 08/31/17 19:37 94 08/31/17 18:00 85 18 146/75 98 Room Air General Appearance: no apparent distress Head: normocephalic, atraumatic Eyes: PERRL Neck: no adenopathy Respiratory/Chest: lungs clear, no respiratory distress Cardiovascular: regular rate, rhythm Abdomen/GI: normal bowel sounds, non tender, soft, + pertinent finding (PD catheter exit site without bleeding or drainage) Extremities/Musculoskelatal: no pedal edema, + pertinent finding (poor skin turgor) Neurologic/Psych: alert, oriented x 3 Skin: warm/dry Laboratory Results Last 24 Hours Test 09/01/17 04:19 09/01/17 09:02 09/01/17 13:57 09/01/17 13:59 White Blood Count 8.69 K/uL Red Blood Count 2.96 M/uL Hemoglobin 9.0 g/dL 8.6 g/dL 8.5 g/dL Hematocrit 28.6 % 26.2 % 26.9 % Mean Corpuscular Volume 96.6 fL Mean Corpuscular Hemoglobin 30.4 pg Mean Corpuscular Hemoglobin Concent 31.5 g/dl Platelet Count 99 K/uL Mean Platelet Volume 10.1 fL RDW Standard Deviation 57.5 fL RDW Coefficient of Variation 17.4 % Nucleated RBC Absolute Count (auto) 0.15 K/uL Neutrophils % (Manual) 70.8 % Lymphocytes % (Manual) 12.9 % Monocytes % (Manual) 11.2 % Basophils % (Manual) 1.7 % Metamyelocytes % 3.4 % Nucleated Red Blood Cells % 1.7 % Neutrophils # (Manual) 6.15 K/uL Total Absolute Neutrophils 6.15 K/uL Lymphocytes # (Manual) 1.12 K/uL Total Absolute Lymphocytes 1.12 K/uL Monocytes # (Manual) 0.97 K/uL Basophils # (Manual) 0.15 K/uL Metamyelocytes # 0.30 K/uL Platelet Estimate DECREASED Red Blood Cell Morphology Unremarkable Sodium Level 131 mmol/L Potassium Level 5.2 mmol/L Chloride Level 94 mmol/L Carbon Dioxide Level 30 mmol/L Anion Gap 7.0 mmol/L Blood Urea Nitrogen 74 mg/dl Creatinine 16.30 mg/dl Est Creatinine Clear Calc Drug Dose 5.5 ml/min Estimated GFR () 3.2 Estimated GFR (Non- 2.7 BUN/Creatinine Ratio 4.5 Random Glucose 77 mg/dl Calcium Level 8.6 mg/dl Phosphorus Level 5.2 mg/dl Magnesium Level 2.4 mg/dl Total Bilirubin 0.5 mg/dl Direct Bilirubin 0.2 mg/dl Aspartate Amino Transf (AST/SGOT) 17 U/L Alanine Aminotransferase (ALT/SGPT) 8 U/L Alkaline Phosphatase 92 U/L Total Protein 5.7 gm/dl Albumin 2.5 gm/dl Prothrombin Time 11.7 SECONDS Prothromb Time International Ratio 1.1 Erythrocyte Sedimentation Rate > 140 mm/hr Troponin I 2.480 ng/ml Impression (1) ESRD (end stage renal disease) (2) Rectal bleeding (3) History of mitral valve replacement with bioprosthetic valve Recommendations END STAGE RENAL DISEASE: -- Chronic NCCPD prescription: 5 exchanges/night, 2700 cc fill volume, combination 4.25% + 2.5%, dwell 1hr 15min, EDW 89kg -- Patient currently appears volume contracted. Will provide NCCPD therapy using 1.5% Delflex. Orders entered into EMR and HD RN notified -- Briefly discussed IHD w/ patient. He does not wish to pursue this option as he wishes to return to work on a regular basis ANEMIA: -- Case discussed w/ GI today. Upper and lower endoscopy 1 year ago revealed only internal hemorrhoids. No plan for repeat endoscopy at this time. OK to resume PD -- Recommend transfusion to maintain Hgb > 10 CV: -- Case discussed w/ Cardiology today. Warfarin has been stopped. MV vegetation at [facility] was negative for infection
[2017-09-01] MEDS: SIMETHICONE 80 MG CHEW PO PRN (17:12)
--- NOTE | 2017-09-01 19:07 | NUR ---
DR HENDRICKS CALLED REGARDING PT'S ELEVATED TROPONINS FROM THIS AFTERNOON. SHE ASKED THAT DR HUNTER FROM CARDIOLOGY BE PAGED AND MADE AWARE. PAGE SENT TO DR HUNTER
--- NOTE | 2017-09-01 19:17 | NUR ---
DR HUNTER CALLED AND MADE AWARE OF PT'S ELEVATED TROPONIN LEVEL. HE STATED HE IS NOT CONCERNED DUE TO PT'S RECENT OPEN HEART SURGERY.
[2017-09-01] MEDS ORDERED: MUPIROCIN 2% OINT 22 GM TUBE EXT ONE (19:45)
--- NOTE | 2017-09-01 20:00 | NUR ---
PT ASSESSMENT COMPLETE. SEE EMR FOR DETAILS. PT SITTING IN BED. VSS. DENIES PAIN/SOB. C/O ITCHING. HAS SEVERAL SMALL OPEN AREAS THAT ARE BLEEDING. BANDAGES APPLIED. PT REQUESTING ANTIBIOTIC CREAM FOR SURGICAL WOUNDS. CALL MELENDEZ WITHIN REACH. WILL CONTINUE TO MONITOR.
[2017-09-01] MEDS ORDERED: AMIODARONE 200 MG TAB PO SCH (21:00)
--- NOTE | 2017-09-01 21:00 | NUR ---
PT REFUSED COREG AND COLACE.
[2017-09-01 22:22] LABS: HEMATOCRIT 27.2 % (42-52); HEMOGLOBIN 8.6 g/dL (14.0-18.0)
--- NOTE | 2017-09-02 00:01 | NUR ---
PT ASSESSMENT COMPLETE. SEE EMR FOR DETAILS. PT RESTING IN BED. VSS. PERITONEAL DIALYSIS RUNNING. PT OFFERS NO COMPLAINTS. CALL MELENDEZ WITHIN REACH. WILL CONTINUE TO MONITOR.
[2017-09-02 03:23] LABS: HEMATOCRIT 25.7 % (42-52); HEMOGLOBIN 8.1 g/dL (14.0-18.0); MEAN CELL VOLUME 94.5 fL (80-100); MEAN CORPUSCULAR HEMOGLOBIN 29.8 pg (25-34); MEAN CORPUSCULAR HGB CONC 31.5 g/dl (32-36); NUCLEATED RED BLOOD CELL ABS 0.12 K/uL (0-0); RED CELL DISTRIBUTION WIDTH CV 17.2 % (11.5-14.5); RED CELL DISTRIBUTION WIDTH SD 55.8 fL (36.4-46.3); WHITE BLOOD COUNT 7.35 K/uL (4.8-10.8)
[2017-09-02 03:31] LABS: PLATELET COUNT 94 K/uL (130-400)
[2017-09-02 04:00] VITALS: BP 145/80; PULSE 98; TEMP 36.9; O2SAT 95
--- NOTE | 2017-09-02 04:00 | NUR ---
PT ASSESSMENT COMPLETE. SEE EMR FOR DETAILS. PT RESTING IN BED. VSS. DENIES PAIN/SOB. PERITONEAL DIALYSIS CONTINUES TO RUN. CALL MELENDEZ WITHIN REACH. WILL CONTINUE TO MONITOR.
[2017-09-02 04:06] LABS: ALBUMIN 2.3 gm/dl (3.4-5.0); CALCIUM 8.5 mg/dl (8.5-10.1); CREATININE 16.9 mg/dl (0.60-1.40); PHOSPHORUS 5.1 mg/dl (2.5-4.9); POTASSIUM 4.9 mmol/L (3.5-5.1); TOTAL PROTEIN 5.6 gm/dl (6.4-8.2)
[2017-09-02 04:12] LABS: BASO % 0.4 %; BASO ABS # 0.03 K/uL (0-0.2); EOS % 1.6 %; EOS ABS # 0.12 K/uL (0-0.5); LYMPH % 12.2 %; MONO % 9.1 %; MONO ABS # 0.67 K/uL (0.11-0.59); NEUT % 68.5 %; NEUT ABS # 5.03 K/uL (1.4-6.5)
[2017-09-02] MEDS: SIMETHICONE 80 MG CHEW PO PRN (07:45)
[2017-09-02] MEDS: SUCROFERRIC OXYHYDROXIDE 500 MG PO SCH ×2 (07:46→11:04)
[2017-09-02] MEDS: TIOTROPIUM BROMIDE 5 PUFF/90 MCG INH INH SCH (07:46)
[2017-09-02] MEDS: NEPHROCAPS PO SCH (07:47)
[2017-09-02] MEDS: CARVEDILOL 12.5 MG TAB PO SCH (07:47)
[2017-09-02] MEDS: SENNA 8.6 MG TAB PO SCH (07:47)
[2017-09-02] MEDS: DOCUSATE SODIUM 100 MG CAP PO SCH (07:47)
[2017-09-02 08:00] VITALS: BP 118/60; PULSE 100; TEMP 37; O2SAT 96
--- NOTE | 2017-09-02 08:00 | NUR ---
Pt fully awake and resting in bed. Denies any complaints this am. VS stable. Removed from peritoneal dialysis by dialysis nurses. Self positions in bed. Using call staples for assistance.
[2017-09-02 08:15] VITALS: BP 118/60; PULSE 100
[2017-09-02] MEDS ORDERED: ASPIRIN 81 MG ECTAB PO SCH (09:00)
[2017-09-02 09:43] LABS: HEMATOCRIT 25.5 % (42-52); HEMOGLOBIN 8.1 g/dL (14.0-18.0)
[2017-09-02] MEDS ORDERED: ANSHCCR EXT (10:19)
[2017-09-02] MEDS ORDERED: ASPI81TA28 PO (10:19)
[2017-09-02] MEDS ORDERED: HYDR1OIN EXT (10:19)
--- NOTE | 2017-09-02 10:26 | Nephrology Progress Note ---
Nephrology Progress Note Date of Service Sep 02, 2017. Chief Complaint ESRD on peritoneal dialysis Subjective Mr. Grullon was seen & examined in the ICU this morning. He denies any further overt bleeding. He completed his NCCPD therapy using all 1.5% exchanges without complication. Mr. Grullon currently denies fever, angina or dyspnea. He is requesting to be discharged to home this morning. Review of Systems Constitutional: No fever Cardiovascular: No chest pain Respiratory: No dyspnea at rest Abdomen: No pain, No nausea, No vomiting Extremities: No leg edema A complete review of systems was performed. Pertinent positives are noted above. All other systems are negative. Vital Signs Last 8 Hrs Date Time Temp Pulse Resp B/P (MAP) Pulse Ox O2 Delivery O2 Flow Rate FiO2 09/02/17 08:00 Room Air 09/02/17 08:00 37.0 100 13 118/60 (79) 96 Room Air 09/02/17 04:00 Room Air 09/02/17 04:00 36.9 98 14 145/80 (101) 95 Room Air Last Recorded Weight Weight (Kilograms): 95.800 Physical Exam General Appearance: no apparent distress Head: normocephalic, atraumatic Eyes: PERRL, EOMI Neck: no adenopathy Respiratory/Chest: lungs clear, no respiratory distress Cardiovascular: regular rate, rhythm Abdomen/GI: normal bowel sounds, non tender, soft, + pertinent finding (PD exit site with small area of erythema. 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 Laboratory Results Past 24 Hours 09/01/17 13:59 09/01/17 22:09 09/02/17 02:57 Red Blood Count 2.72, Mean Corpuscular Volume 94.5, Mean Corpuscular Hemoglobin 29.8, Mean Corpuscular Hemoglobin Concent 31.5, Mean Platelet Volume 10.0, Neutrophils (%) (Auto) 68.5, Lymphocytes (%) (Auto) 12.2, Monocytes (%) (Auto) 9.1, Eosinophils (%) (Auto) 1.6, Basophils (%) (Auto) 0.4, Neutrophils # (Auto) 5.03, Lymphocytes # (Auto) 0.90, Monocytes # (Auto) 0.67, Eosinophils # (Auto) 0.12, Basophils # (Auto) 0.03 09/02/17 09:26 09/02/17 02:57 Test 09/01/17 11:21 09/01/17 13:57 09/01/17 16:36 09/01/17 22:09 Bedside Glucose 80 mg/dl (70-99) 103 mg/dl (70-99) Erythrocyte Sedimentation Rate > 140 mm/hr (0-14) Troponin I 2.480 ng/ml (0-0.045) 2.360 ng/ml (0-0.045) Test 09/02/17 02:57 White Blood Count 7.35 K/uL (4.8-10.8) Red Blood Count 2.72 M/uL (4.7-6.1) Hemoglobin 8.1 g/dL (14.0-18.0) Hematocrit 25.7 % (42-52) Mean Corpuscular Volume 94.5 fL (80-100) Mean Corpuscular Hemoglobin 29.8 pg (25-34) Mean Corpuscular Hemoglobin Concent 31.5 g/dl (32-36) Platelet Count 94 K/uL (130-400) Mean Platelet Volume 10.0 fL (7.4-10.4) Neutrophils (%) (Auto) 68.5 % Lymphocytes (%) (Auto) 12.2 % Monocytes (%) (Auto) 9.1 % Eosinophils (%) (Auto) 1.6 % Basophils (%) (Auto) 0.4 % Neutrophils # (Auto) 5.03 K/uL (1.4-6.5) Lymphocytes # (Auto) 0.90 K/uL (1.2-3.4) Monocytes # (Auto) 0.67 K/uL (0.11-0.59) Eosinophils # (Auto) 0.12 K/uL (0-0.5) Basophils # (Auto) 0.03 K/uL (0-0.2) RDW Standard Deviation 55.8 fL (36.4-46.3) RDW Coefficient of Variation 17.2 % (11.5-14.5) Immature Granulocyte % (Auto) 8.2 % Immature Granulocyte # (Auto) 0.60 K/uL (0.00-0.02) Nucleated RBC Absolute Count (auto) 0.12 K/uL (0-0) Nucleated Red Blood Cells % 1.7 % Red Blood Cell Morphology Unremarkable Prothrombin Time 10.7 SECONDS (9.0-12.0) Prothromb Time International Ratio 1.0 (0.9-1.1) Anion Gap 10.0 mmol/L (3-11) Est Creatinine Clear Calc Drug Dose 5.3 ml/min Estimated GFR () 3.0 Estimated GFR (Non- 2.6 BUN/Creatinine Ratio 4.6 (10-20) Calcium Level 8.5 mg/dl (8.5-10.1) Phosphorus Level 5.1 mg/dl (2.5-4.9) Magnesium Level 2.5 mg/dl (1.8-2.4) Total Bilirubin 0.5 mg/dl (0.2-1) Direct Bilirubin 0.1 mg/dl (0-0.2) Aspartate Amino Transf (AST/SGOT) 14 U/L (15-37) Alanine Aminotransferase (ALT/SGPT) 7 U/L (12-78) Alkaline Phosphatase 95 U/L (45-117) Troponin I 2.200 ng/ml (0-0.045) Total Protein 5.6 gm/dl (6.4-8.2) Albumin 2.3 gm/dl (3.4-5.0) Lipase 228 U/L (73-393) Allergies Coded Allergies: No Known Allergies (Unverified , 08/31/17) Medications Current Inpatient Medications Medications (Trade) Dose Ordered Sig/Aleksandra Route Start Time Stop Time Status Last Admin Dose Admin Amiodarone HCl (Cordarone Tab) 200 mg QPM PO 09/01/17 21:00 10/01/17 20:59 09/01/17 20:52 200 MG Vitamin B Complex/ Vit C/Folic Acid (Nephrocaps) 1 cap DAILY PO 09/01/17 09:00 10/01/17 08:59 09/02/17 07:47 1 CAP Calcium Carbonate (Tums Chew Tab) 500 mg UD PRN PO 09/01/17 03:15 10/01/17 03:14 Carvedilol (Coreg Tab) 12.5 mg BID PO 09/01/17 09:00 10/01/17 08:59 Diphenhydramine HCl (Benadryl Cap) 75 mg HS PRN PO 09/01/17 03:15 10/01/17 03:14 Docusate Sodium (coLACE CAP) 100 mg BID PO 09/01/17 09:00 10/01/17 08:59 Fluticasone Propionate (Flonase Nasal [place]) 2 sprays DAILY PRN RAFAEL 09/01/17 03:15 10/01/17 03:14 Senna (Senokot Tab) 8.6 mg BID PO 09/01/17 09:00 10/01/17 08:59 09/02/17 07:47 8.6 MG Tiotropium [place] (Spiriva Handihaler Inhaler) 1 puff DAILY INH 09/01/17 09:00 10/01/17 08:59 09/02/17 07:46 1 PUFF Tramadol HCl (Ultram Tab) 50 mg Q6 PRN PO 09/01/17 03:15 10/01/17 03:14 Nicotine (Nicoderm Cq 21MG Patch) 1 patch QAM PRN TD 09/01/17 06:45 10/01/17 06:44 Miscellaneous (Remove Nicoderm Patch) 1 ea DAILY PRN N/A 09/01/17 07:00 10/01/17 06:59 Hydrocortisone (Hydrocortisone 1% Crm) 1 appln BID PRN EXT 09/01/17 11:15 10/01/17 11:14 Aspirin (Ecotrin Tab) 81 mg DAILY PO 09/02/17 09:00 10/01/17 08:59 09/02/17 07:47 81 MG Simethicone (Mylicon Chew Tab) 80 mg Q6H PRN PO 09/01/17 11:30 10/01/17 11:29 09/02/17 07:45 80 MG Miscellaneous Information (Order Awaiting Action) 1 ea QS N/A 09/01/17 12:00 10/01/17 11:59 Non-Formulary Medication (Non-Formulary Patient'S Own Med) 2 ea AC PO 09/01/17 11:30 10/01/17 11:29 09/02/17 07:46 2 EA Non-Formulary Medication (Non-Formulary Patient'S Own Med) 1 ea UD PRN PO 09/01/17 11:30 10/01/17 11:29 Hydrocortisone (Proctozone Hc 2.5% Crm) 1 appln BID PRN EXT 09/01/17 12:30 10/01/17 12:29 Impression (1) ESRD (end stage renal disease) (2) Rectal bleeding (3) History of mitral valve replacement with bioprosthetic valve Recommendations END STAGE RENAL DISEASE: -- Chronic NCCPD prescription: 5 exchanges/night, 2700 cc fill volume, combination 4.25% + 2.5%, dwell 1hr 15min, EDW 89kg -- Will provide NCCPD therapy using 2.5% Delflex if patient remains hospitalized tonight. Orders entered into EMR and HD RN notified -- Discussed lab results in detail with patient this am. He has mild hyponatremia, hyperkalemia and azotemia despite peritoneal dialysis. We discussed the benefits of transitioning to IHD. Mr. Grullon reported that he manages his potassium at home by using "water softner resin" (sodium polystyrene that he purchases from [employer]) whenever he eats a large potassium containing meal. He is aware of the potential complications of high potassium but feels confident that he can manage his blood chemistries on his own and wishes to remain on PD. He is aware that IHD is an option but does not want to pursue it at this time as he plans to return to work on a regular basis -- If discharge is planned patient will resume his regular outpatient PD prescription using 2.5% delflex and advancing to 2.5% + 4.25% as needed for volume management. I have notified the PD RN that he is nearing discharge and to provide assistance if needed. ANEMIA: -- Patient has been evaluated by GI this hospitalization. Upper and lower endoscopy 1 year ago revealed only internal hemorrhoids. No plan for repeat endoscopy at this time. -- Recommend transfusion to maintain Hgb > 10 CV: -- Patient has been evaluated by Cardiology. Warfarin has been stopped. MV vegetation at [facility] was negative for infection
--- NOTE | 2017-09-02 10:26 | Discharge Instructions ---
Discharge Instructions Date of Service Sep 02, 2017. Admission Reason for Admission: Anemia, Rectal Bleeding Discharge Discharge Diagnosis / Problem: Anemia,rectal bleeding,dehydration Discharge Goals Goal(s): Improve disease control, Diagnostic testing, Therapeutic intervention Activity Recommendations Activity Limitations: as noted below Exercise/Sports Limitations: rest today, gradually increase as tolerated Driving or Machine Use: no driving until cleared by your surgeon . Instructions / Follow-Up Instructions / Follow-Up You were admitted with lightheadedness and rectal bleeding. Your hemoglobin was slightly decreased from previous on admission at 7.9. You received 1 unit of blood and your hemoglobin improved. Your coumadin was discontinued at this time , however you remain at high risk of further embolic/clotting events while off coumadin. It is important that you follow up closely with both your Cardiothoracic Surgeon at [facility] in [place], as well as with Dr. Jaime/ Cardiology in [place]. Please continue your peritoneal dialysis at home and follow up with Dr. Martinez within 1-2 weeks. Please have your blood work drawn on Tuesday with results sent to Dr. Martinez to check your blood count and electrolytes, renal function. You were also seen by Rheumatology for your history of joint pains and nodules, along with elevated sed rate. Please follow up with Dr. Sierra within 1 month. The Gastroenterology service saw you and did not feel you needed colonoscopy at this time as the bleeding subsided and your blood count remained fairly stable. Please continue to treat your hemorrhoids with hydrocortisone cream. Current Hospital Diet Patient's current hospital diet: AHA Diet (Heart Healthy), Renal Diet Discharge Diet Recommended Diet: AHA Diet (Heart Healthy), Renal Diet Procedures Procedures Performed: Chest xray Pending Studies Studies pending at discharge: no Laboratory Results Hemoglobin A1c Test 08/17/17 11:41 Range/Units Estimated Average Glucose 154 mg/dl Hemoglobin A1c 7.0 H 4.5-5.6 % Lipid Panel Test 08/18/17 05:39 Range/Units Triglycerides Level 64 0-150 mg/dl Cholesterol Level 161 0-200 mg/dl HDL Cholesterol 59 mg/dl Cholesterol/HDL Ratio 2.7 LDL Cholesterol, Calculated 89 mg/dl Medical Emergencies . Who to Call and When: Medical Emergencies: If at any time you feel your situation is an emergency, please call 911 immediately. . Non-Emergent Contact Non-Emergency issues call your: Primary Care Provider, Chassis Wirer, Dry Cleaning Checker Call Non-Emergent contact if: temperature is above 100.5, your pain is not controlled, your pain is worsening, your pain is unusual for you, your pain is concerning you, wound has increased drainage, wound has increased redness, wound has increased pain, you have any medication questions . . "Provider Documentation" section prepared by Indira Davis. . VTE Core Measure Inpt VTE Proph given/why not?: SCD's, Contraindicated
[2017-09-02 10:35] VITALS: BP 118/60; PULSE 100; TEMP 37; O2SAT 96
--- NOTE | 2017-09-02 11:06 | NUR ---
Dr Jaime in to see pt at bedside and ok with d/c to home. D/c instructions reviewed with pt and verbalized understanding. IV removed. pt currently awaiting to arrive for transport home. Security called to retrieve belongings for code # [id number]. Pt home medications given back to pt. Pt prefers to await his to pack his belongings since he has electronic equipment and things that need to be packed.
--- NOTE | 2017-09-02 11:08 | Cardiology Follow-Up ---
Subjective General Date of Service: Sep 02, 2017. Chief Complaint: follow up recent cardiac surgery, h/o PAF Pt evaluation today including: conversation w/ patient, physical exam History of Present Illness The patient is a 62 year old male seen in cardiology follow up. Patient is well known to the undersigned as I have followed him as outpatient and inpatient in the past. I have been monitoring his recent operative progress at [facility] in his electronic chart. Patient was seen and examined in ICU room 103 and he is eager for discharge. Telemetry reveals SR. No AF. Allergies Coded Allergies: No Known Allergies (Unverified , 08/31/17) Social History Smoking Status: Former Smoker Hx Tobacco Use In Past Year?: No Hx Alcohol Use - Type And Amou: Yes (2 glasses of wine a week) Hx Substance Use - Type And Am: No Problem List Medical Problems: (1) Abnormal EKG Status: Acute (2) Altered mental status Status: Acute (3) Anemia Status: Acute (4) Anemia Status: Acute (5) Anemia Status: Acute (6) Anemia Status: Acute (7) Anticoagulant effect Status: Acute (8) ARF (acute renal failure) Status: Acute (9) Bleeding Status: Acute (10) Chest wall pain Status: Acute (11) Coagulopathy Status: Acute (12) Electrocardiogram showing T wave abnormalities Status: Acute (13) Fatigue Status: Acute (14) Hyperkalemia Status: Acute (15) Pancreatitis Status: Acute (16) Pericardial effusion without cardiac tamponade Status: Acute (17) Pleural effusion, left Status: Acute (18) Rectal bleeding Status: Acute (19) Renal failure Status: Acute (20) Supratherapeutic INR Status: Acute (21) Upper GI bleed Status: Acute Physical Exam Vital Signs Last Vital Signs Documentation Date Time Temp Pulse Resp B/P (MAP) Pulse Ox O2 Delivery O2 Flow Rate FiO2 09/02/17 10:35 37.0 100 13 96 Room Air 09/02/17 08:15 118/60 (79) Physical Exam Constitutional: Level of Distress: NAD Head: normocephalic Neck: supple Lungs: Auscultation: no wheezing, no rales/crackles, no rhonchi Cardiovascular: Heart Auscultation: RRR, no murmurs, no rubs Abdomen: Bowel Sounds: normal Inspection & Palpation: non-distended, no tenderness, guarding & rebound Extremities: no edema, pertinent finding (multiple areas of ecchymosiss on legs and arms) Neurologic: Gait & Station: pertinent finding (no focal deficits) Assessment and Plan Assessment and Plan Impression: 1. Acute on chronic anemia Hgb was 7.8 g/dl on DC from [facility] on 08/29/17, 8.1 today. 2. 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 H/o prior PAF 4. ESRD, on PD, h/o recurrent hyperkalemia Recommendations: The patient's tropinin was elevated with peak of 2.4 mg/dl however, he has absolutely no symptoms suggestive of angina, and this is likely just a residual elevation due to his recent heart surgery, in the setting of chronic renal insufficiency. Patient does have history of life threatening hemothorax while on coumadin in the past requiring operative evacuation in the past. Notes from [facility] reviewed. Surgery note describes gross OR findings suggestive of caseating mitral calcification, final pathology note resulted as of yet. Blood cultures were negative preop , however, received antibiotics prior to cultures. I had long discussion with the patient. This is a very complex situation he is in. On one hand he has chronic ongoing anemia, and easy bruising , and there is concern of bleeding complication with coumadin. He has had past lifethreatening bleeding on Coumadin (hemothorax in past). On the other hand , he is recently post op from a bio MVR, and typically these pt's are maintained on coumadin for 3 months post op to prevent against risk of embolic event post left atriotomy and to prevent early prosthesis thrombosis. Patient is aware of the risks of stopping coumadin. will proceed with low dose aspirin in place of coumadin. Continue amiodarone, pt maintaining SR. Nephrology input noted and appreciated. Patient has been counseled in the past regarding potential risk of life threatening arrhythmia related to electrolyte abnormalities. Keep outpatient cardiology follow up with me as planned. Laboratory Results Last 24 Hours Test 09/01/17 11:21 09/01/17 13:57 09/01/17 13:59 09/01/17 16:36 Bedside Glucose 80 mg/dl 103 mg/dl Erythrocyte Sedimentation Rate > 140 mm/hr Troponin I 2.480 ng/ml Hemoglobin 8.5 g/dL Hematocrit 26.9 % Test 09/01/17 22:09 09/02/17 02:57 09/02/17 09:26 Hemoglobin 8.6 g/dL 8.1 g/dL 8.1 g/dL Hematocrit 27.2 % 25.7 % 25.5 % Troponin I 2.360 ng/ml 2.200 ng/ml White Blood Count 7.35 K/uL Red Blood Count 2.72 M/uL Mean Corpuscular Volume 94.5 fL Mean Corpuscular Hemoglobin 29.8 pg Mean Corpuscular Hemoglobin Concent 31.5 g/dl Platelet Count 94 K/uL Mean Platelet Volume 10.0 fL Neutrophils (%) (Auto) 68.5 % Lymphocytes (%) (Auto) 12.2 % Monocytes (%) (Auto) 9.1 % Eosinophils (%) (Auto) 1.6 % Basophils (%) (Auto) 0.4 % Neutrophils # (Auto) 5.03 K/uL Lymphocytes # (Auto) 0.90 K/uL Monocytes # (Auto) 0.67 K/uL Eosinophils # (Auto) 0.12 K/uL Basophils # (Auto) 0.03 K/uL RDW Standard Deviation 55.8 fL RDW Coefficient of Variation 17.2 % Immature Granulocyte % (Auto) 8.2 % Immature Granulocyte # (Auto) 0.60 K/uL Nucleated RBC Absolute Count (auto) 0.12 K/uL Nucleated Red Blood Cells % 1.7 % Red Blood Cell Morphology Unremarkable Prothrombin Time 10.7 SECONDS Prothromb Time International Ratio 1.0 Sodium Level 131 mmol/L Potassium Level 4.9 mmol/L Chloride Level 92 mmol/L Carbon Dioxide Level 29 mmol/L Anion Gap 10.0 mmol/L Blood Urea Nitrogen 77 mg/dl Creatinine 16.90 mg/dl Est Creatinine Clear Calc Drug Dose 5.3 ml/min Estimated GFR () 3.0 Estimated GFR (Non- 2.6 BUN/Creatinine Ratio 4.6 Random Glucose 95 mg/dl Calcium Level 8.5 mg/dl Phosphorus Level 5.1 mg/dl Magnesium Level 2.5 mg/dl Total Bilirubin 0.5 mg/dl Direct Bilirubin 0.1 mg/dl Aspartate Amino Transf (AST/SGOT) 14 U/L Alanine Aminotransferase (ALT/SGPT) 7 U/L Alkaline Phosphatase 95 U/L Total Protein 5.6 gm/dl Albumin 2.3 gm/dl Lipase 228 U/L
--- NOTE | 2017-09-02 11:21 | NUR ---
case management note. pt lives with his and son at home and states he is planning to return home at D/C. He continues to deny needs. case management to follow.
--- NOTE | 2017-09-02 11:30 | NUR ---
53 Tramadol tablets counted with security at pt bedside and returned to pt.
--- NOTE | 2017-09-02 11:43 | Gastroenterology Progress Note ---
Progress Note Date of Service: Sep 02, 2017 Subjective Pt evaluation today including: conversation w/ patient, physical exam, chart review, lab review, review of inpatient medication list Pt denies any more rectal bleeding overnight, no abd pain, n/v. H/H improving. Review of Systems Constitutional: No fever, No chills Respiratory: No cough, No shortness of breath Cardiac: No chest pain Abdomen: No pain, No nausea, No vomiting, No GI bleeding Medications Current Inpatient Medications Medications (Trade) Dose Ordered Sig/Aleksandra Route Start Time Stop Time Status Last Admin Dose Admin Amiodarone HCl (Cordarone Tab) 200 mg QPM PO 09/01/17 21:00 10/01/17 20:59 09/01/17 20:52 200 MG Vitamin B Complex/ Vit C/Folic Acid (Nephrocaps) 1 cap DAILY PO 09/01/17 09:00 10/01/17 08:59 09/02/17 07:47 1 CAP Calcium Carbonate (Tums Chew Tab) 500 mg UD PRN PO 09/01/17 03:15 10/01/17 03:14 Carvedilol (Coreg Tab) 12.5 mg BID PO 09/01/17 09:00 10/01/17 08:59 Diphenhydramine HCl (Benadryl Cap) 75 mg HS PRN PO 09/01/17 03:15 10/01/17 03:14 Docusate Sodium (coLACE CAP) 100 mg BID PO 09/01/17 09:00 10/01/17 08:59 Fluticasone Propionate (Flonase Nasal [place]) 2 sprays DAILY PRN RAFAEL 09/01/17 03:15 10/01/17 03:14 Senna (Senokot Tab) 8.6 mg BID PO 09/01/17 09:00 10/01/17 08:59 09/02/17 07:47 8.6 MG Tiotropium [place] (Spiriva Handihaler Inhaler) 1 puff DAILY INH 09/01/17 09:00 10/01/17 08:59 09/02/17 07:46 1 PUFF Tramadol HCl (Ultram Tab) 50 mg Q6 PRN PO 09/01/17 03:15 10/01/17 03:14 Nicotine (Nicoderm Cq 21MG Patch) 1 patch QAM PRN TD 09/01/17 06:45 10/01/17 06:44 Miscellaneous (Remove Nicoderm Patch) 1 ea DAILY PRN N/A 09/01/17 07:00 10/01/17 06:59 Hydrocortisone (Hydrocortisone 1% Crm) 1 appln BID PRN EXT 09/01/17 11:15 10/01/17 11:14 Aspirin (Ecotrin Tab) 81 mg DAILY PO 09/02/17 09:00 10/01/17 08:59 09/02/17 07:47 81 MG Simethicone (Mylicon Chew Tab) 80 mg Q6H PRN PO 09/01/17 11:30 10/01/17 11:29 09/02/17 07:45 80 MG Miscellaneous Information (Order Awaiting Action) 1 ea QS N/A 09/01/17 12:00 10/01/17 11:59 Non-Formulary Medication (Non-Formulary Patient'S Own Med) 2 ea AC PO 09/01/17 11:30 10/01/17 11:29 09/02/17 11:04 2 EA Non-Formulary Medication (Non-Formulary Patient'S Own Med) 1 ea UD PRN PO 09/01/17 11:30 10/01/17 11:29 Hydrocortisone (Proctozone Hc 2.5% Crm) 1 appln BID PRN EXT 09/01/17 12:30 10/01/17 12:29 Objective Vital Signs Date Time Temp Pulse Resp B/P (MAP) Pulse Ox O2 Delivery O2 Flow Rate FiO2 09/02/17 10:35 37.0 100 13 96 Room Air 09/02/17 08:15 100 13 118/60 (79) 09/02/17 08:00 Room Air 09/02/17 08:00 37.0 100 13 118/60 (79) 96 Room Air 09/02/17 04:00 Room Air 09/02/17 04:00 36.9 98 14 145/80 (101) 95 Room Air 09/01/17 23:59 Room Air 09/01/17 23:59 36.9 89 18 148/78 (101) 94 Room Air 09/01/17 20:24 36.7 97 134/95 (108) 09/01/17 20:00 Room Air 09/01/17 20:00 36.7 99 17 134/95 (108) 95 Room Air 09/01/17 16:00 36.8 96 21 147/86 (106) 96 Room Air 09/01/17 16:00 Room Air 09/01/17 12:00 Room Air 09/01/17 12:00 37.1 98 19 123/73 (90) 98 Room Air Physical Exam General Appearance: WD/WN, no apparent distress, + obese Eyes: normal inspection, PERRL, EOMI Neck: supple, no JVD, trachea midline Respiratory/Chest: normal breath sounds, no respiratory distress, no accessory muscle use Cardiovascular: regular rate, rhythm, no gallop, no murmur Abdomen: normal bowel sounds, non tender, soft Extremities: normal inspection, no pedal edema, no calf tenderness Neurologic/Psych: alert, normal mood/affect, oriented x 3 Skin: normal color, no jaundice, no rash Laboratory Results Last 24 Hours Test 09/01/17 13:57 09/01/17 13:59 09/01/17 16:36 09/01/17 22:09 Erythrocyte Sedimentation Rate > 140 mm/hr Troponin I 2.480 ng/ml 2.360 ng/ml Hemoglobin 8.5 g/dL 8.6 g/dL Hematocrit 26.9 % 27.2 % Bedside Glucose 103 mg/dl Test 09/02/17 02:57 09/02/17 09:26 White Blood Count 7.35 K/uL Red Blood Count 2.72 M/uL Hemoglobin 8.1 g/dL 8.1 g/dL Hematocrit 25.7 % 25.5 % Mean Corpuscular Volume 94.5 fL Mean Corpuscular Hemoglobin 29.8 pg Mean Corpuscular Hemoglobin Concent 31.5 g/dl Platelet Count 94 K/uL Mean Platelet Volume 10.0 fL Neutrophils (%) (Auto) 68.5 % Lymphocytes (%) (Auto) 12.2 % Monocytes (%) (Auto) 9.1 % Eosinophils (%) (Auto) 1.6 % Basophils (%) (Auto) 0.4 % Neutrophils # (Auto) 5.03 K/uL Lymphocytes # (Auto) 0.90 K/uL Monocytes # (Auto) 0.67 K/uL Eosinophils # (Auto) 0.12 K/uL Basophils # (Auto) 0.03 K/uL RDW Standard Deviation 55.8 fL RDW Coefficient of Variation 17.2 % Immature Granulocyte % (Auto) 8.2 % Immature Granulocyte # (Auto) 0.60 K/uL Nucleated RBC Absolute Count (auto) 0.12 K/uL Nucleated Red Blood Cells % 1.7 % Red Blood Cell Morphology Unremarkable Prothrombin Time 10.7 SECONDS Prothromb Time International Ratio 1.0 Sodium Level 131 mmol/L Potassium Level 4.9 mmol/L Chloride Level 92 mmol/L Carbon Dioxide Level 29 mmol/L Anion Gap 10.0 mmol/L Blood Urea Nitrogen 77 mg/dl Creatinine 16.90 mg/dl Est Creatinine Clear Calc Drug Dose 5.3 ml/min Estimated GFR () 3.0 Estimated GFR (Non- 2.6 BUN/Creatinine Ratio 4.6 Random Glucose 95 mg/dl Calcium Level 8.5 mg/dl Phosphorus Level 5.1 mg/dl Magnesium Level 2.5 mg/dl Total Bilirubin 0.5 mg/dl Direct Bilirubin 0.1 mg/dl Aspartate Amino Transf (AST/SGOT) 14 U/L Alanine Aminotransferase (ALT/SGPT) 7 U/L Alkaline Phosphatase 95 U/L Troponin I 2.200 ng/ml Total Protein 5.6 gm/dl Albumin 2.3 gm/dl Lipase 228 U/L Assessment and Plan Patient is a 62 year old male seen for hematochezia which had resolved. . He had recent mitral valve replacement w 1 vessel CABG on 08/23/17 at [facility] , been on Coumadin and ASA. Last EGD/Colonoscopy 12/2015. He is anemic on presentation but H/H at baseline s/p 1U PRBC transfusion. Anemia likely due to chronic disease (ESRD). H/H improving. No more rectal bleeding since admitted. Plan - Will defer endoscopic workup given recent cardiac surgery also no signs of active GI bleeding at this time. - Hydrocortisone ND cream to use prn hemorrhoidal bleeding. - Monitor H/H and transfuse prn - Coordinate care and use of anticoagulation w Cardiovascular Surgeon at [facility] [place] - Nephrology following. - GI will sign off; call if new questions/concerns arise.
--- NOTE | 2017-09-02 12:00 | NUR ---
arrived at bedside and pt getting dressed
--- NOTE | 2017-09-02 17:14 | NUR ---
student services [facility]an [facility]: Pt left before I was able to schedule follow up appointments. I will call him on TuesdaySeptember 06 and offer assistance w/ arranging appointments: [facility] Card[facility] Dr. Martinez (PCP) Addendum: 09/06/17 at 1528 by Crystal Clark SERV I called pt to offer assist w/ arranging follow up appointments. He tells me that he may already have some appointments in place w/ [facility] but he doesn't know with whom or when. I call [facility] and pt has the following appts in place: PCP Dr. Dent on TuesdaySeptember 13 at 11:05 in the [facility] Cardiology on TuesdaySeptember 16 at 3:45 w/ Dr. Abrams in the [facility] Office Dr. Garcia cardiothoracic surgeon on TuesdaySeptember 21 at 2:15 pm in [facility] Rheumatology on September 29 at 2:00 pm in the [facility] Office I called Dr. Martinez's office and I was told that he is not the pt's PCP. However, the pt voiced that he believed Dr. Martinez to be his PCP. The dust box worker will confirm w/ Dr. Martinez if he is the PCP or only providing nephrology services. The dust box worker will then contact the pt regarding this info and follow up appt info. Addendum: 09/06/17 at 1615 by Crystal Clark SERV I inform pt of the above information.
--- NOTE | 2017-09-02 20:49 | Discharge Summary ---
Discharge Summary Date of Service Sep 02, 2017. 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 Nathaniel Santillan Gout COPD Procedures: Chest xray Consultations: Cardiology Nephrology Rheumatology Gastroenterology Medication Reconciliation New Medications: Hydrocortisone (Proctosol Hc) 90 Appln/30 Gm Cr 1 APPLN EXT BID PRN for Hemorrhoids for 7 Days, #1 TUBE Hydrocortisone (Topical) (Hydrocortisone) 1 % Oin 1 APPLN EXT BID PRN for itching for 30 Days Changed Medications: Aspirin (Aspirin Ec) 81 Mg Tab 81 MG PO DAILY for 30 Days (Changed from: BID) Continued Medications: Amiodarone Hcl (Cordarone) 200 Mg Tab 200 MG PO QPM, TAB B-Complex W/ C & Folic Acid (Triphrocaps) 1 Cap Cap 1 CAP PO DAILY Calcium Carbonate (Tums) 500 Mg Chew 500 MG PO UD PRN for Indigestion TAKE PER PACKAGE DIRECTIONS Carvedilol (Coreg) 12.5 Mg Tab 12.5 MG PO BID, TAB Cinacalcet (Sensipar) 30 Mg Tab 30 MG PO QPM, TAB Diphenhydramine Hcl (Benadryl) 25 Mg Cap 75 MG PO HS PRN for Sleep, CAP Docusate Sodium (Docusate Sodium) 100 Mg Cap 1 CAP PO BID, CAP Fluticasone Propionate (Nasal) (Flonase Allergy Relief) 50 Mcg/Act Spr 2 SPRAYS RAFAEL DAILY PRN for Allergy Symptoms Magnesium Oxide (Mg Supplement (Magnesium) 500 Mg Cap 500 MG PO 2XWK Senna (Senokot) 8.6 Mg Tab 1 TAB PO BID, TAB Sucroferric Oxyhydroxide (Velphoro) 500 Mg Chw 500 MG PO UD TAKE ONE TAB WITH SNACKS Sucroferric Oxyhydroxide (Velphoro) 500 Mg Chw 1000 MG PO AC Tiotropium [place] (Spiriva Handihaler) 30 Puff/540 Mcg Aerp 1 CAP INH DAILY, CAP Tramadol (Ultram) 50 Mg Tab 50 MG PO Q6 PRN for Pain, TAB Discontinued Medications: Warfarin Sod (Coumadin) 2.5 Mg Tab 2.5 MG PO DAILY, TAB TAKE 2.5 MG EVERY DAY OR OTHERWISE DIRECTED TO TAKE BY ANTICOAGULATION CLINIC/MD Referrals At Discharge Follow up Referrals: Executive Search Consultant Referral - Within 1-2 Weeks with Deven Jaime D.O. Production Control Analyst Referral - Within a Month with Nishant Chaney M.D. Discharge Exam Feeling better, only complaint is dry mouth. Very anxious for discharge to home today. BPs acceptable, telemetry with NSR. No CP or SOB. No lightheadedness or dizziness. No further rectal bleeding. Continues to pick at multiple skin lesions and scabs , frequently uses his back hogshead weigher. RN reports he is using Q-tips to dig into his skin lesions and scratch as well. Physical Exam General Appearance: WD/WN, no apparent distress Head: normocephalic, atraumatic Eyes: normal inspection, EOMI ENT: hearing grossly normal, + pertinent finding (mildly dry mucus membranes) Neck: no JVD, trachea midline Respiratory/Chest: no respiratory distress, no accessory muscle use, + decreased breath sounds (at bases slightly) Cardiovascular: regular rate, rhythm, no edema, no murmur, + pertinent finding (1+ DP pulses bilat; +splinter hemorrhages in some fingernails and toenails, no joint nodules) Abdomen/GI: normal bowel sounds, non tender, soft, + pertinent finding ( previous chest tube sites healing, PD tube insertion site appears normal, no leaking of blood) Back: normal inspection Extremities/Musculoskelatal: no calf tenderness, no pedal edema, + pertinent finding (multiple small, nonblanching erythematous 2-3mm lesions, some scabbed over) Neurologic/Psych: alert, normal mood/affect, oriented x 3 Skin: + rash (as above) Review of Systems: Constitutional: No fever, No chills Eyes: No problem reported ENT: + problem reported (dry mouth) Respiratory: No shortness of breath Cardiovascular: No chest pain Abdomen: No pain, No nausea, No vomiting, No diarrhea, No constipation, No GI bleeding Musculoskeletal: No problem reported Genitourinary - Male: No problem reported Neurologic: No problem reported Psychiatric: No problem reported Hematologic / Lymphatic: No problem reported Integumentary: + rash, + itch Hospital Course Patient is a 62-year-old male with complex PMH of recent MVR and 1vCABG for large caseating/noninfectious MV mass discovered after acute ischemic LLE with femoral artery embolus. ALso with h/o ESRD on PD, HTN, and anemia of CKD who presented with concerns for persistent episodes of bleeding (epistaxis,in peritoneal dialysate,rectally, and from skin lesions) and feeling lightheaded. Hgb on admission is 1 gram lower than on admission 2 weeks ago. Had gross blood on rectal exam. Recently placed on coumadin at [facility] after MVR ( bioprosthetic). Acute on chronic anemia of CKD, some mild blood loss/BRBPR- INR 1.8 and reversed with Vit K, received 1 unit PRBCs, hgb was up to 9 from 7.9, then down to 8.1 on day of discharge. He is no longer feeling lightheaded, BPs good. Pt adamant about not going back on coumadin for prevention of cardioembolic event. Bleeding resolved now -follow CBC as outpt on Tuesday -appreciate GI consult -had scopes last year with hemorrhoids, no need to need scope again as bleeding has stopped -stool softeners, [place] hydrocortisone cream Recent MVR/CABG/CAD/PAF/Femoral artery embolus- in NSR here, on amiodarone. Cannot tolerate coumadin due to bleeding and should remain off anticoagulation. MV vegetation was likely causing emboli with joint nodules, skin lesions, splinter hemorrhages, had ESR reportedly of 120-question if had Libman-Sachs endocarditis? States that his joint nodules and pains were previously improving with short courses of prednisone, not clear. 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 There were bacteria seen in the vegetation on frozen path sections. They did not feel he needed any antibiotic therapy. Rheumatology does not think this is a Libman-Sachs endocarditis ESR >140 here but could be due to anemia, ESRD, recent surgery. -f/u with CT Surgery, Cardiology within 1-2 weeks after discharge -Cardiology recommendations appreciated -remain on ASA 81mg daily, Coreg, not on statin for unclear reasons -no further AC with coumadin due to bleeding and h/o severe anemia -Consult Rheumatology appreciated-f/u as outpt ESRD on PD- d/w Nephrology -received PD while admitted- removed less fluid given his recent low BPs at home and c/o lightheadedness, mild blood loss -f/u with Nephrology on discharge -PRP on Tuesday HTN-on Coreg as above, stable Stable for discharge to home Total Time Spent: Greater than 30 minutes This includes examination of the patient, discharge planning, medication reconciliation, and communication with other providers. Discharge Instructions Please refer to the electronic Patient Visit Report (Discharge Instructions) for additional information. Follow-Up PCP/Nephrology within 1-2 weeks Rheumatology within 1 month Cardiology within 1-[address] Surgery as scheduled within 2 weeks Check CBC, BMP on Tuesday Additional Copies To Deven Jaime D.O.; Flakito Martinez M.D.; Nishant Chaney M.D.
[2017-09-14] MEDS ORDERED: CALC500C3 PO (01:08)
[2017-09-14] MEDS ORDERED: SPRIN/30 INH (01:08)
[2017-09-14] MEDS ORDERED: FLUT0.15 NAE (01:08)
[2017-09-14] MEDS ORDERED: B-COCAP28 PO (01:08)
[2017-09-14] MEDS ORDERED: SUCR5CHW PO ×2 (11:36)
[2017-09-14] MEDS ORDERED: AMIO200T4 PO (11:36)
[2017-09-14] MEDS ORDERED: DIPH25CA5 PO (13:33)
[2017-09-14] MEDS ORDERED: CINA0.42 PO (13:34)
[2017-12-31] MEDS ORDERED: AMLO5TAB3 PO (23:04)
[2018-02-07] MEDS ORDERED: VNTHFA/IN INH (02:02)
[2018-02-09] MEDS ORDERED: KETO10TA PO (09:57)
[2018-02-16] MEDS ORDERED: PRED-301 PO (13:09)
[2018-02-20] MEDS ORDERED: LPR25 PO (15:23)
== END 2017-09-02 13:17 | disposition home or self-care (01) | DRG 813 ==
LOC: EDBD 14:43 → C.EDC 14:44 → C.MSICU 09-01 01:00 → ENRESERV 09-01 01:11
PROVIDERS: ADMIT Hospitalist; ATTEND Family Medicine
DX: D68.32 Hemorrhagic disorder due to extrinsic circulating anticoagulants (principal); K92.1 Melena; N18.6 End stage renal disease; J94.2 Hemothorax; I12.0 Hypertensive chronic kidney disease with stage 5 chronic kidney disease or end stage renal disease; D62 Acute posthemorrhagic anemia; T45.515A Adverse effect of anticoagulants, initial encounter; I25.2 Old myocardial infarction; D63.1 Anemia in chronic kidney disease; Z87.891 Personal history of nicotine dependence; Z95.2 Presence of prosthetic heart valve; E87.5 Hyperkalemia; Z95.1 Presence of aortocoronary bypass graft; E11.21 Type 2 diabetes mellitus with diabetic nephropathy; I48.0 Paroxysmal atrial fibrillation; J44.9 Chronic obstructive pulmonary disease, unspecified; Z83.3 Family history of diabetes mellitus; Z79.82 Long term (current) use of aspirin; E86.0 Dehydration; K64.8 Other hemorrhoids; L30.9 Dermatitis, unspecified; R25.1 Tremor, unspecified; Z86.718 Personal history of other venous thrombosis and embolism; Y92.019 Unspecified place in single-family (private) house as the place of occurrence of the external cause

== ENCOUNTER 2017-09-14 14:42 | Observation (INO) | payer OTHER ==
[~2017-09-14] VITALS: Ht 180.3 cm; Wt 93.5 kg
[2017-09-14] VITALS (18 sets, daily range): BP systolic 123–169; BP diastolic 72–99; PULSE 99–110; TEMP 36.7–37.3; O2SAT 91–100; Ht 180.3 cm; Wt 93.5 kg
[~2017-09-14 14:42] MED LIST changes: -ACET-1256 PO; +AMIO200T4 PO; -AMLO5TAB3 PO; +ANSHCCR EXT; +B-COCAP28 PO; +CALC500C3 PO; +CARV12.5 PO; +CINA0.42 PO; -CMD/25 PO; +DIPH25CA5 PO; +DOCU100C31 PO; +FLUT0.15 NAE; -HYDCR1CL TOP; +HYDR1OIN EXT; +SENN-61 PO; +SPRIN/30 INH; +SUCR5CHW PO; +TRAM-10 PO
[2017-09-14] MEDS ORDERED: SODIUM POLYST. SULF SUSP 15G/60ML PO STA (15:14)
--- NOTE | 2017-09-14 15:15 | EMERGENCY ROOM VISIT NOTE ---
History Report prepared by Donell: Jeovanny Muro Under the Supervision of: Dr. Mark Forte D.O. First contact with patient: 15:03 Chief Complaint: REFERRED BY DOCTOR Stated Complaint: DOC REFERRED,PT NEEDS BLOOD TRANSFUSION History of Present Illness The patient is a 62 year old male who presents to the Emergency Room with complaints of a persistent need for a blood transfusion that was detected prior to arrival. He states that he had blood work done a couple days ago, and was told here to be potentially hospitalized and to get a blood transfusion. The patient notes that he was being seen by Dr. Jaime earlier today, and was then sent here because his hemoglobin was low (in the 6-range) yesterday and due to his deteriorating condition. The patient adds that he had open heart surgery in [place] about 8 days ago, for a single bypass and mitral valve replacement. The valve was not infected, but had calcium deposits. He notes that he has been a bit dizzy and tired over the past week. He adds that he has had a bit of shortness of breath as well. He denies any fevers, new cough, chest pain or leg swelling. The patient states that he is still doing dialysis and it is going fine. The patient notes no notable cancer history. He says that he was recently taken off of Coumadin due to excessive bleeding, and now only takes an Aspirin. Source of History: patient Onset: Prior to arrival Position: other (global - need for blood transfusion) Symptom Intensity: low hemoglobin in 6-range Timing: other (persistent need) Associated Symptoms: + SOB, + fatigue, No cough (any new), No chest pain Note: Denies leg swelling. Review of Systems See HPI for pertinent positives & negatives. A total of 10 systems reviewed and were otherwise negative. Past Medical & Surgical Medical Problems: (1) Anemia due to chronic kidney disease (2) Arthralgia (3) CAD (coronary artery disease) (4) Chest pain (5) ESRD (end stage renal disease) (6) GI bleed (7) Hemothorax on left (8) HTN (hypertension) (9) Hyperkalemia (10) Hypertensive urgency (11) Ischemic foot (12) Ischemic rest pain of lower extremity (13) Loculated pleural effusion (14) NSTEMI (non-ST elevated myocardial infarction) Surgical Problems: (1) H/O colonoscopy (2) Heart valve replaced (3) History of dental surgery (4) History of esophagogastroduodenoscopy (EGD) (5) History of mitral valve replacement with bioprosthetic valve (6) Mitral valve replaced (7) [place] teeth extracted Family History Diabetes mellitus FATHER FH: CHF (congestive heart failure) FATHER Hypertension FATHER Social History Smoking Status: Never Smoker Alcohol Use: occasionally Drug Use: none Marital Status: Housing Status: lives with significant other Occupation Status: employed Current/Historical Medications Scheduled Amiodarone Hcl (Cordarone), 200 MG PO QPM Aspirin (Aspirin Ec), 81 MG PO QPM B-Complex W/ C & Folic Acid (Triphrocaps), 1 CAP PO DAILY Cinacalcet (Sensipar), 30 MG PO QPM Sodium Bicarbonate (Sodium Bicarbonate), 1,300 MG PO DAILY Sucroferric Oxyhydroxide (Velphoro), 500 MG PO UD Sucroferric Oxyhydroxide (Velphoro), 1,000 MG PO AC Tiotropium Sprague (Spiriva Handihaler), 1 CAP INH DAILY Scheduled PRN Calcium Carbonate (Tums), 500 MG PO UD PRN for Indigestion Diphenhydramine Hcl (Benadryl), 75 MG PO HS PRN for Sleep Fluticasone Propionate (Nasal) (Flonase Allergy Relief), 2 SPRAYS RAFAEL DAILY PRN for Allergy Symptoms Hydrocortisone (Proctosol Hc), 1 APPLN EXT BID PRN for Hemorrhoids Hydrocortisone (Topical) (Hydrocortisone), 1 APPLN EXT BID PRN for itching Magnesium Oxide (Mg Supplement (Magnesium), 500 MG PO 2XWK PRN for LOW MAG Allergies Coded Allergies: No Known Allergies (Unverified , 08/31/17) Physical Exam Vital Signs Date Time Temp Pulse Resp B/P (MAP) Pulse Ox O2 Delivery O2 Flow Rate FiO2 09/14/17 18:24 36.7 104 14 124/76 95 09/14/17 18:07 36.7 102 14 123/72 95 09/14/17 16:39 100 20 116/74 97 09/14/17 15:33 99 09/14/17 14:58 36.7 108 22 106/65 93 Room Air Physical Exam GENERAL: Patient is awake, alert, and in no acute distress. Patient is resting comfortably and showing no signs of anxiety EYES: The conjunctivae are clear. The pupils are round and reactive. EARS, NOSE, MOUTH AND THROAT: The nose is without any evidence of any deformity. Mucous membranes are moist tongue is midline NECK: The neck is nontender and supple. RESPIRATORY: Normal respiratory effort is noted there is no evidence of wheezing rhonchi or rales CARDIOVASCULAR: Regular rate and rhythm noted to auscultation. No definite murmur noted. GASTROINTESTINAL: The abdomen is soft. Bowel sounds are present in all quadrants. Abdomen is nontender MUSCULOSKELETAL/EXTREMITIES: There is no evidence of gross deformity full range of motion is noted in the hips and shoulders SKIN: Pedal edema bilaterally. NEUROLOGIC: Patient is awake alert and oriented x3. Medical Decision & Procedures ER Provider Diagnostic Interpretation: X-ray results as stated below per interpretation by me and the radiologist. CHEST ONE VIEW PORTABLE CLINICAL HISTORY: Abdominal pain. COMPARISON STUDY: Chest radiograph August 31, 2017. FINDINGS: There are are median sternotomy wires and a prosthetic cardiac valve. Moderate enlargement of the cardiac silhouette is unchanged. There is no evidence of pulmonary edema. Mild bibasilar opacities favor atelectasis. Hazy left lower lung opacity, possibly pleural in location is unchanged. IMPRESSION: 1. No acute cardiopulmonary findings. 2. No change in appearance of the chest. Stable cardiomegaly without evidence of pulmonary edema. Electronically signed by: David Pena M.D. 09/14/2017 4:01 PM Dictated Date/Time: 09/14/2017 3:59 PM Laboratory Results 09/14/17 15:48 Red Blood Count 2.19, Mean Corpuscular Volume 100.0, Mean Corpuscular Hemoglobin 31.5, Mean Corpuscular Hemoglobin Concent 31.5, Mean Platelet Volume 9.5, Neutrophils (%) (Auto) 59.2, Lymphocytes (%) (Auto) 15.7, Monocytes (%) ( Auto) 13.5, Eosinophils (%) (Auto) 2.8, Basophils (%) (Auto) 0.6, Neutrophils # (Auto) 5.01, Lymphocytes # (Auto) 1.33, Monocytes # (Auto) 1.14, Eosinophils # ( Auto) 0.24, Basophils # (Auto) 0.05 09/14/17 15:48 Test 09/14/17 15:48 White Blood Count 8.46 K/uL (4.8-10.8) Red Blood Count 2.19 M/uL (4.7-6.1) Hemoglobin 6.9 g/dL (14.0-18.0) Hematocrit 21.9 % (42-52) Mean Corpuscular Volume 100.0 fL (80-100) Mean Corpuscular Hemoglobin 31.5 pg (25-34) Mean Corpuscular Hemoglobin Concent 31.5 g/dl (32-36) Platelet Count 191 K/uL (130-400) Mean Platelet Volume 9.5 fL (7.4-10.4) Neutrophils (%) (Auto) 59.2 % Lymphocytes (%) (Auto) 15.7 % Monocytes (%) (Auto) 13.5 % Eosinophils (%) (Auto) 2.8 % Basophils (%) (Auto) 0.6 % Neutrophils # (Auto) 5.01 K/uL (1.4-6.5) Lymphocytes # (Auto) 1.33 K/uL (1.2-3.4) Monocytes # (Auto) 1.14 K/uL (0.11-0.59) Eosinophils # (Auto) 0.24 K/uL (0-0.5) Basophils # (Auto) 0.05 K/uL (0-0.2) RDW Standard Deviation 74.5 fL (36.4-46.3) RDW Coefficient of Variation 20.9 % (11.5-14.5) Immature Granulocyte % (Auto) 8.2 % Immature Granulocyte # (Auto) 0.69 K/uL (0.00-0.02) Anisocytosis PRESENT Macrocytosis PRESENT Stomatocytes 1+ Prothrombin Time 10.3 SECONDS (9.0-12.0) Prothromb Time International Ratio 1.0 (0.9-1.1) Activated Partial Thromboplast Time 26.2 SECONDS (21.0-31.0) Partial Thromboplastin Ratio 1.0 Anion Gap 12.0 mmol/L (3-11) Est Creatinine Clear Calc Drug Dose 6.3 ml/min Estimated GFR () 3.7 Estimated GFR (Non- 3.2 BUN/Creatinine Ratio 5.0 (10-20) Calcium Level 8.6 mg/dl (8.5-10.1) Total Bilirubin 0.7 mg/dl (0.2-1) Direct Bilirubin < 0.1 mg/dl (0-0.2) Aspartate Amino Transf (AST/SGOT) 12 U/L (15-37) Alanine Aminotransferase (ALT/SGPT) 13 U/L (12-78) Alkaline Phosphatase 103 U/L (45-117) Troponin I 0.214 ng/ml (0-0.045) Total Protein 6.1 gm/dl (6.4-8.2) Albumin 2.3 gm/dl (3.4-5.0) Lipase 262 U/L (73-393) Laboratory results per my review. Medications Administered Medications (Trade) Dose Ordered Sig/Aleksandra Route Start Time Stop Time Status Last Admin Dose Admin Sodium Polystyrene Sulfonate (Kayexalate Susp) 30 gm NOW STAT PO 09/14/17 15:14 09/14/17 15:16 DC 09/14/17 15:31 30 GM ECG Indication: weakness Rate (beats per minute): 98 Rhythm: normal sinus Findings: no ectopy, other (inferior and lateral T-wave abnormalities) Change: no significant change (from 08/31/17) ED Course 1506: The patient was evaluated in room C12B. A complete history and physical examination were performed. 1514: Ordered Kayexalate Susp 30 mg PO. 1643: Upon reevaluation, the patient is resting comfortably. I discussed results and treatment plan with him. He verbalizes agreement and understanding. The patient will be evaluated for further management and care. 1650: I discussed the patient with Dr. Kennedi Chong [facility] [place] air conditioner installer helper. He will evaluate the patient for further treatment. Medical Decision Differential diagnosis: Etiologies such as metabolic, infection, hypo/hyperglycemia, electrolyte abnormalities, cardiac sources, intracerebral event, toxicologic, neurologic, as well as others were entertained. Nursing notes reviewed. Additional history was obtained by the patient's primary environmental coordinator. The patient is a 62-year-old male who presented to the emergency department at the request of his primary environmental coordinator for anemia. The patient has a history of recent mitral valve replacement. He has a bioprosthetic valve and does not require any coagulation at this time. He presented to the emergency department because worsening anemia. He has a history of dialysis and was felt to be in need of blood transfusion. The patient did complain of weakness as well as shortness of breath on exertion. Blood transfusion was started in the emergency department. I discussed his case with the on-call [facility] hospitalist. They've agreed to evaluate the patient in the emergency department for further management and disposition. Medication Reconcilliation Current Medication List: was personally reviewed by me Blood Pressure Screening Patient's blood pressure: Normal blood pressure Consults Time Called: 164 Consulting Physician: Dr. Kennedi TUBBS air conditioner installer helper Returned Call: 1650 I discussed the patient with Dr. Kennedi TUBBS air conditioner installer helper. He will evaluate the patient for further treatment. Impression Primary Impression: Anemia Additional Impression: Renal failure, chronic Scribe Attestation The scribe's documentation has been prepared under my direction and personally reviewed by me in its entirety. I confirm that the note above accurately reflects all work, treatment, procedures, and medical decision making performed by me. Departure Information Dispostion Being Evaluated By Hospitalist Referrals Flakito Martinez M.D. (PCP) Patient Instructions My [facility] Problem Qualifiers Primary Impression: Anemia Anemia type: unspecified type Qualified Codes: D64.9 - Anemia, unspecified Additional Impression: Renal failure, chronic Chronic kidney disease stage: unspecified stage Qualified Codes: N18.9 - Chronic kidney disease, unspecified
[2017-09-14] MEDS ORDERED: SODI650T8 PO (15:46)
[2017-09-14] MEDS ORDERED: ASPI81TA28 PO (15:46)
--- NOTE | 2017-09-14 16:02 | DIAGNOSTIC IMAGING REPORT ---
CHEST ONE VIEW PORTABLE CLINICAL HISTORY: Abdominal pain. COMPARISON STUDY: Chest radiograph August 31, 2017. FINDINGS: There are are median sternotomy wires and a prosthetic cardiac valve. Moderate enlargement of the cardiac silhouette is unchanged. There is no evidence of pulmonary edema. Mild bibasilar opacities favor atelectasis. Hazy left lower lung opacity, possibly pleural in location is unchanged. IMPRESSION: 1. No acute cardiopulmonary findings. 2. No change in appearance of the chest. Stable cardiomegaly without evidence of pulmonary edema. Electronically signed by: David Pena M.D. 09/14/2017 4:01 PM Dictated Date/Time: 09/14/2017 3:59 PM
[2017-09-14 16:17] LABS: PTT PATIENT 26.2 SECONDS (21.0-31.0)
[2017-09-14 16:18] LABS: HEMATOCRIT 21.9 % (42-52); HEMOGLOBIN 6.9 g/dL (14.0-18.0); MEAN CORPUSCULAR HEMOGLOBIN 31.5 pg (25-34); MEAN CORPUSCULAR HGB CONC 31.5 g/dl (32-36); MEAN PLATELET VOLUME 9.5 fL (7.4-10.4); PLATELET COUNT 191 K/uL (130-400); RED CELL DISTRIBUTION WIDTH CV 20.9 % (11.5-14.5); RED CELL DISTRIBUTION WIDTH SD 74.5 fL (36.4-46.3); WHITE BLOOD COUNT 8.46 K/uL (4.8-10.8)
[2017-09-14 16:37] LABS: ALBUMIN 2.3 gm/dl (3.4-5.0); ALKALINE PHOSPHATASE 103 U/L (45-117); ALT/SGPT 13 U/L (12-78); AST/SGOT 12 U/L (15-37); BLOOD UREA NITROGEN 72 mg/dl (7-18); CALCIUM 8.6 mg/dl (8.5-10.1); CARBON DIOXIDE 28 mmol/L (21-32); GLUCOSE 123 mg/dl (70-99); LIPASE 262 U/L (73-393); POTASSIUM 4.1 mmol/L (3.5-5.1); SODIUM 140 mmol/L (136-145); TOTAL PROTEIN 6.1 gm/dl (6.4-8.2)
[2017-09-14 16:46] LABS: BASO % 0.6 %; BASO ABS # 0.05 K/uL (0-0.2); EOS % 2.8 %; EOS ABS # 0.24 K/uL (0-0.5); IG# 0.69 K/uL (0.00-0.02); LYMPH % 15.7 %; LYMPH ABS # 1.33 K/uL (1.2-3.4); MONO % 13.5 %; MONO ABS # 1.14 K/uL (0.11-0.59); NEUT % 59.2 %; NEUT ABS # 5.01 K/uL (1.4-6.5)
[2017-09-14] MEDS ORDERED: POLYETHYLENE (MIRALAX) 17 GM PACK PO PRN (18:30)
[2017-09-14] MEDS ORDERED: ALUMINUM/MAGNESIUM/SIMETH (MAALOX MAX) 30 ML UDC PO PRN (18:30)
[2017-09-14] MEDS ORDERED: FLUTICASONE PROPIONATE NA SPR 16 GM BTL NAE PRN (18:30)
[2017-09-14] MEDS ORDERED: MAGNESIUM HYDROXIDE SUSP 30 ML UDC PO PRN (18:30)
[2017-09-14] MEDS ORDERED: ONDANSETRON INJ 2 MG/ML 2 ML VIAL IV PRN (18:30)
[2017-09-14] MEDS ORDERED: MAGNESIUM OXIDE PO PRN (18:30)
[2017-09-14] MEDS ORDERED: CALCIUM CARBONATE 500 MG CHEWABLE PO PRN (18:30)
[2017-09-14] MEDS ORDERED: ACETAMINOPHEN 325 MG TAB PO PRN (18:30)
--- NOTE | 2017-09-14 19:22 | History and Physical ---
History & Physical Date & Time of Service: Sep 14, 2017 at 18:52 Chief Complaint: Doc Referred,Pt Needs Blood Transfusion Primary Care Physician: Flakito Martinez M.D. History of Present Illness Source: patient 62 y/o M with a complex medical history that includes ESRD - peritoneal dialysis , DM, HTN, chronic anemia, PAF, CAD - recent mitral valve replacement due to calcific vegetations, recent 1 vessel CABG, recent emergent thrombectomy due to femoral occlusion and resultant ischemia of the LLE. The pt has had recurrent anemia requiring transfusions. This is thought to be related to his renal disease and possibly an element of GI blood loss. He became exceedingly weak and lightheaded today. He was at his cardiologists office and was noted to be extremely pale. He was having difficulty with minimal exertion. A hemoglobin was obtained and returned at 6.9. Additionally , the pt suffers from frequent electrolyte abnormalities which were also of concern to the pattern fitter. He was sent to the ER for transfusions and to check a BMP. An initial BMP did not show any concerning values. His troponin is chronically elevated. An EKG does show inferior inversions - he is not exhibiting related symptoms at the time of admission. The pt denies SOB, CP, N/V, diaphoresis. He has been compliant with peritoneal dialysis. Past Medical/Surgical History 1) L femoral vein embolic occlusion and LLE ischemia 08/21 2) Calcific (noninfectious) vegetations of mitral valve - required MVR - received bioprosthesis 08/24/17 3) CAD - NSTEMI and type II NSTEMI due to anemia - 1 vessel CABG 08/24/17 4) ESRD - peritoneal dialysis - pt advised on hemodialysis due to frequent electrolyte abnormalities which he has declined thus far 5) Gout 6) DM - diet-controlled 7) HTN 8) GI bleed while on Coumadin - no source was identified 9) Anemia of chronic disease - element of GI blood loss suspected - may have been due to Coumadin 10) Paroxysmal atrial fibrillation 11) Spontaneous hemothorax - on Coumadin 12) COPD Surgical history: 1) MVR - bioprosthesis 08/21 2) CABG - 1 VESSEL 08/21 3) L femoral thrombectomy 08/21 Family History Diabetes mellitus FATHER FH: CHF (congestive heart failure) FATHER Hypertension FATHER Social History Smoking Status: Never Smoker Drug Use: none Marital Status: Housing status: lives with family, lives with significant other Occupational Status: employed Multi-Drug Resistant Organisms History of MDRO: No Allergies Coded Allergies: No Known Allergies (Unverified , 08/31/17) Home Medications Scheduled Amiodarone Hcl (Cordarone), 200 MG PO QPM Aspirin (Aspirin Ec), 81 MG PO QPM B-Complex W/ C & Folic Acid (Triphrocaps), 1 CAP PO DAILY Cinacalcet (Sensipar), 30 MG PO QPM Sodium Bicarbonate (Sodium Bicarbonate), 1,300 MG PO DAILY Sucroferric Oxyhydroxide (Velphoro), 500 MG PO UD Sucroferric Oxyhydroxide (Velphoro), 1,000 MG PO AC Tiotropium [place] (Spiriva Handihaler), 1 CAP INH DAILY Scheduled PRN Calcium Carbonate (Tums), 500 MG PO UD PRN for Indigestion Diphenhydramine Hcl (Benadryl), 75 MG PO HS PRN for Sleep Fluticasone Propionate (Nasal) (Flonase Allergy Relief), 2 SPRAYS RAFAEL DAILY PRN for Allergy Symptoms Hydrocortisone (Proctosol Hc), 1 APPLN EXT BID PRN for Hemorrhoids Hydrocortisone (Topical) (Hydrocortisone), 1 APPLN EXT BID PRN for itching Magnesium Oxide (Mg Supplement (Magnesium), 500 MG PO 2XWK PRN for LOW MAG Physical Exam Vital Signs Date Time Temp Pulse Resp B/P (MAP) Pulse Ox O2 Delivery O2 Flow Rate FiO2 09/14/17 18:24 36.7 104 14 124/76 95 09/14/17 18:07 36.7 102 14 123/72 95 09/14/17 16:39 100 20 116/74 97 09/14/17 15:33 99 09/14/17 14:58 36.7 108 22 106/65 93 Room Air Diagnostics Laboratory Results Results Past 24 Hours Test 09/14/17 15:48 Range/Units White Blood Count 8.46 4.8-10.8 K/uL Red Blood Count 2.19 4.7-6.1 M/uL Hemoglobin 6.9 14.0-18.0 g/dL Hematocrit 21.9 42-52 % Mean Corpuscular Volume 100.0 80-100 fL Mean Corpuscular Hemoglobin 31.5 25-34 pg Mean Corpuscular Hemoglobin Concent 31.5 32-36 g/dl Platelet Count 191 130-400 K/uL Mean Platelet Volume 9.5 7.4-10.4 fL Neutrophils (%) (Auto) 59.2 % Lymphocytes (%) (Auto) 15.7 % Monocytes (%) (Auto) 13.5 % Eosinophils (%) (Auto) 2.8 % Basophils (%) (Auto) 0.6 % Neutrophils # (Auto) 5.01 1.4-6.5 K/uL Lymphocytes # (Auto) 1.33 1.2-3.4 K/uL Monocytes # (Auto) 1.14 0.11-0.59 K/uL Eosinophils # (Auto) 0.24 0-0.5 K/uL Basophils # (Auto) 0.05 0-0.2 K/uL RDW Standard Deviation 74.5 36.4-46.3 fL RDW Coefficient of Variation 20.9 11.5-14.5 % Immature Granulocyte % (Auto) 8.2 % Immature Granulocyte # (Auto) 0.69 0.00-0.02 K/uL Anisocytosis PRESENT Macrocytosis PRESENT Stomatocytes 1+ Prothrombin Time 10.3 9.0-12.0 SECONDS Prothromb Time International Ratio 1.0 0.9-1.1 Activated Partial Thromboplast Time 26.2 21.0-31.0 SECONDS Partial Thromboplastin Ratio 1.0 Sodium Level 140 136-145 mmol/L Potassium Level 4.1 3.5-5.1 mmol/L Chloride Level 100 98-107 mmol/L Carbon Dioxide Level 28 21-32 mmol/L Anion Gap 12.0 3-11 mmol/L Blood Urea Nitrogen 72 7-18 mg/dl Creatinine 14.30 0.60-1.40 mg/dl Est Creatinine Clear Calc Drug Dose 6.3 ml/min Estimated GFR () 3.7 Estimated GFR (Non- 3.2 BUN/Creatinine Ratio 5.0 10-20 Random Glucose 123 70-99 mg/dl Calcium Level 8.6 8.5-10.1 mg/dl Total Bilirubin 0.7 0.2-1 mg/dl Direct Bilirubin < 0.1 0-0.2 mg/dl Aspartate Amino Transf (AST/SGOT) 12 15-37 U/L Alanine Aminotransferase (ALT/SGPT) 13 12-78 U/L Alkaline Phosphatase 103 45-117 U/L Troponin I 0.214 0-0.045 ng/ml Total Protein 6.1 6.4-8.2 gm/dl Albumin 2.3 3.4-5.0 gm/dl Lipase 262 73-393 U/L EKG Sinus - inferior t-wave inversions which were not present previously Impression Assessment and Plan 62 y/o M with a complex medical history that includes ESRD - peritoneal dialysis , DM, HTN, chronic anemia, PAF, CAD - recent mitral valve replacement due to calcific vegetations, recent 1 vessel CABG, recent emergent thrombectomy due to femoral occlusion and resultant ischemia of the LLE. The pt has had recurrent anemia requiring transfusions. This is thought to be related to his renal disease and possibly an element of GI blood loss. He became exceedingly weak and lightheaded today. He was at his cardiologists office and was noted to be extremely pale. He was having difficulty with minimal exertion. A hemoglobin was obtained and returned at 6.9. Additionally , the pt suffers from frequent electrolyte abnormalities which were also of concern to the pattern fitter. He was sent to the ER for transfusions and to check a BMP. An initial BMP did not show any concerning values. His troponin is chronically elevated. An EKG does show inferior inversions - he is not exhibiting related symptoms at the time of admission. 1) Symptomatic anemia - 2 units PRBC to be transfused - will trend Hb - denies gross GI blood loss at present 2) ESRD - will request peritoneal dialysis orders from nephrology - cont Sensipar - pt uses Sodium bicarb which he states controls his calcium level and water softener tablets PRN to lower his K - mostly following a K-rich meal 3) CAD - no evidence of ACS - cont ASA 4) DM - listed in record - diet-controlled 5) PAF - sinus rhythm on admission - cont Amio 6) EKG changes - inferior inversions - troponin is elevated, however, this is chronic and improved from baseline - we will trend his troponin and monitor on telemetry overnight. The EKG changes may be related to a degree of demand ischemia as he does have a history of type II [place]. An EKG will be repeated following transfusions. Full code - SCDs pending repeat Hb Total time for this admit including review of labs, meds, extensive records - discussion with cardiology and ER attending - 42 min Level of Care Telemetry Resuscitation Status FULL RESUSCITATION VTE Prophylaxis VTE Risk Assessment Done? Y/N: Yes Risk Level: Moderate Given or contraindicated: SCD's
[2017-09-14] MEDS ORDERED: IV FLUIDS COMPLETED PRN (19:30)
[2017-09-14] MEDS ORDERED: HYDROCORTISONE HC 2.5% CRM 30GM TUBE EXT PRN (20:45)
[2017-09-14] MEDS ORDERED: HYDROCORTISONE 1% CR 30 GM TUBE EXT PRN (20:45)
[2017-09-14] MEDS ORDERED: AMIODARONE 200 MG TAB PO SCH (21:00)
[2017-09-14] MEDS ORDERED: ASPIRIN 81 MG ECTAB PO SCH (21:00)
[2017-09-14] MEDS: NEOMYCIN/POLYMYX/BACITR OINT 15 GM TUBE EXT SCH (21:02)
[2017-09-14] MEDS ORDERED: ACETAMINOPHEN 500 MG TAB PO STA (21:10)
[2017-09-14] MEDS: [UNRECOGNIZED DRUG - REMARK] SCH (23:02)
[2017-09-15] VITALS (11 sets, daily range): BP systolic 109–161; BP diastolic 68–91; PULSE 95–107; TEMP 36.8–37; O2SAT 91–98
[2017-09-15 00:55] LABS: HEMATOCRIT 24.7 % (42-52); HEMOGLOBIN 8.1 g/dL (14.0-18.0)
[2017-09-15 06:56] LABS: CALCIUM 8.3 mg/dl (8.5-10.1); CREATININE 14.4 mg/dl (0.60-1.40); POTASSIUM 3.7 mmol/L (3.5-5.1)
[2017-09-15] MEDS ORDERED: PERFLUTREN LIPID MICROSPHERE (DEFINITY) IV ONE (07:46)
[2017-09-15] MEDS: [UNRECOGNIZED DRUG - REMARK] SCH (08:00)
[2017-09-15] MEDS ORDERED: SIMETHICONE 80 MG CHEW PO PRN (08:30)
[2017-09-15] MEDS: SUCROFERRIC OXYHYDROXIDE 500 MG PO PRN ×2 (08:50→11:35)
[2017-09-15] MEDS: NEOMYCIN/POLYMYX/BACITR OINT 15 GM TUBE EXT SCH (08:51)
[2017-09-15] MEDS ORDERED: NEPHROCAPS PO SCH (09:00)
[2017-09-15] MEDS ORDERED: TIOTROPIUM BROMIDE 5 PUFF/90 MCG INH INH SCH (09:00)
[2017-09-15] MEDS ORDERED: SODIUM BICARBONATE 650 MG TAB PO SCH (09:00)
[2017-09-15 09:31] LABS: RETIC COUNT % 2.8 % (0.5-2.0)
[2017-09-15] MEDS ORDERED: SUCROFERRIC OXYHYDROXIDE 500 MG PO SCH (11:00)
[2017-09-15] MEDS ORDERED: EPOETIN ALFA 40,000 UNITS/ML VIAL SQ ONE (11:15)
--- NOTE | 2017-09-15 11:19 | Discharge Instructions ---
Discharge Instructions Date of Service Sep 15, 2017. Admission Reason for Admission: Symptomatic Anemia Discharge Discharge Diagnosis / Problem: anemia - improved with transfusion; ongoing management with EPO analogs Discharge Goals Goal(s): Diagnostic testing, Therapeutic intervention Activity Recommendations Activity Limitations: resume your previous activity . Current Hospital Diet Patient's current hospital diet: AHA Diet (Heart Healthy), Diabetes Type 2 Diet Discharge Diet Recommended Diet: AHA Diet (Heart Healthy), Diabetes Type 2 Diet Pending Studies Studies pending at discharge: no Laboratory Results Hemoglobin A1c Test 08/17/17 11:41 Range/Units Estimated Average Glucose 154 mg/dl Hemoglobin A1c 7.0 H 4.5-5.6 % Lipid Panel Test 08/18/17 05:39 Range/Units Triglycerides Level 64 0-150 mg/dl Cholesterol Level 161 0-200 mg/dl HDL Cholesterol 59 mg/dl Cholesterol/HDL Ratio 2.7 LDL Cholesterol, Calculated 89 mg/dl Medical Emergencies . Who to Call and When: Medical Emergencies: If at any time you feel your situation is an emergency, please call 911 immediately. . Non-Emergent Contact Non-Emergency issues call your: Primary Care Provider . . "Provider Documentation" section prepared by Naeem Guzman. . VTE Core Measure Inpt VTE Proph given/why not?: SCD's
--- NOTE | 2017-09-15 11:52 | NEPHROLOGY CONSULTATION ---
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 SUBJECTIVE: Mr. Grullon was admitted to the hospital through the Emergency Room last evening. Apparently yesterday, he was seen by his wire drawer, Dr. Deven Jaime, and his hemoglobin was noted to be less than 7. Although, he was not complaining of significant shortness of breath and was not complaining of any immediate bleeding at that time. He was referred to the Emergency Room for further evaluation and transfusion. His hemoglobin here was 6.9 grams %. He was admitted. He has been transfused with 2 units of packed cells. He did have his overnight peritoneal dialysis. His blood pressure, which was somewhat higher at the time of admission, has returned to the normal range (134/75). His hemoglobin is up to 8.1 this morning. He denies any current symptoms of shortness of breath or chest discomfort. He says that he is often somewhat weak in the morning when his blood pressure drops. Details of his past medical history are outlined on my consultation note done in mid August. It does outline his history of chronic renal disease over the years. The presumption is that his chronic renal disease may be secondary to an IgA nephropathy. When he presented here with a painful left leg in mid August, his evaluation was consistent with both atherosclerotic disease in his left lower extremity as well as an embolus in the femoral artery. 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 Blood cultures x2 were negative. His sed rate was moderately elevated. Anticardiolipin antibodies and anti-DNAs were negative. He was transferred to the [facility] in [place], where he underwent further cardiac evaluation and ultimately underwent a mitral valve replacement with a bioprosthetic valve. 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 There was some calcification involved. Postoperatively, he was started on warfarin because of issues of atrial fibrillation. However, he has discontinued that drug because he thought that it caused some minimal rectal bleeding, which he did have in late August. He was seen in the Emergency Room here on with complaints of rectal bleeding. His INR was therapeutic. His hemoglobin was stable. He refused hospitalization. However, he returned 2 days later for the evaluation of his hematochezia. His hemoglobin at that time was 7.9. His INR was 1.8. He was transfused. He received a GI evaluation at that time, but the decision was made not to pursue endoscopy at that time. The decision was because of his recent cardiac surgery. In addition to the mitral valve replacement, he had 1-vessel coronary artery bypass graft. His last colonoscopy was in December of 2015. At that time, he only had evidence of hemorrhoids. Currently, he denies any recent rectal bleeding. CURRENT MEDICATIONS: Amiodarone 200 mg daily, aspirin 81 mg daily, vitamin B complex with vitamin C and folic acid 1 capsule daily, Tums 500 mg p.r.n., Sensipar 30 mg each evening, diphenhydramine 75 mg at bedtime as needed for sleep, and Proctosol, which he applies on a p.r.n. basis for his hemorrhoids. He uses magnesium 500 mg twice a week on a p.r.n. basis, which he decides himself. He has been using sodium bicarbonate 1.3 grams daily (which he says prevents his dental plaque), Velphoro 500 mg 1 with snacks and 2 with each meal and Spiriva inhaler, which he uses on a p.r.n. basis. Of late, he has not received his erythrocyte stimulating agent, Mircera. ALLERGIES: No known medication allergies. The remainder of his past history appears on my consultation note of August 17. There are no significant additions. OBJECTIVE: GENERAL: On physical exam when seen by me, he appears to be somewhat of a chronically ill gentleman. He was concluding his peritoneal dialysis cycle. VITAL SIGNS: He is afebrile (37.0), his blood pressure 134/75, his pulse 102 and regular, respiratory rate 21, and his pulse ox 94%-98% on room air. SKIN: Shows normal skin turgor. He has a few scattered ecchymoses. His peritoneal catheter exits in the lower abdomen. The exit site is clean and there is no tenderness over the subcutaneous tunnel. He has small scars from his previous procedure to his left femoral artery. He has a new midsternal scar as well from his cardiac surgery. LYMPHATICS: Shows no palpable lymphadenopathy. HEAD: Normal. EYES: Grossly normal. The ocular fundi were not examined. EARS, NOSE, MOUTH AND THROAT: Unremarkable except for very poor dentition. His oral mucous membranes are moist. NECK: Supple. He has no current jugular venous distention. I hear no carotid bruit and there is no thyromegaly. CHEST: Clear to auscultation. He has no wheezes, rales or rhonchi. CARDIAC: Shows a regular rhythm. He has normal bioprosthetic valve sounds. I hear no murmur or gallop. ABDOMEN: Shows scars from the placement of his peritoneal catheter with the exit site as noted above. He also has a left lower quadrant scar from a recent inguinal hernia repair. His abdomen is nontender. There is no organomegaly or mass. Bowel sounds are normal. I hear no abdominal bruits. EXTREMITIES: Show no cyanosis, clubbing or peripheral edema. Peripheral pulses are difficult to feel particularly in his feet. NEUROLOGIC: Shows no lateralizing changes. PERTINENT LABORATORY WORK: On admission showed a white count of 8460 with an essentially normal differential. His hemoglobin was 6.9 with a hematocrit of 21.9. Red cell indices were slightly macrocytic. His platelet count was 191,000. His reticulocyte count was 2.8%. His prothrombin time was 10.3 with an INR of 1.0. His PTT 26.2 with a PTTR of 1.0. Clinical chemistries from today showed a sodium of 137 mmol/L, potassium 3.7 mmol/L, chlorides 100 mmol/L, and CO2 content 27 mmol/L. His BUN is 71 and creatinine 14.40. His random blood sugar was 104. His serum calcium is 8.3. His serum iron was 87 with a total iron binding capacity of 162. His transferrin saturation is 44%. His ferritin is 1347.3. His troponin is chronically elevated at 0.193, but that does not represent a change. His B12 is 785 and his folic acid is 12.86. ASSESSMENT: At the current time, Mr. Grullon appeared perfectly stable. He denied any recent acute bleeding, although he did have some hematochezia in late August. Nonetheless, his hemoglobin was quite low. He has adequate iron stores. He has not been receiving his erythrocyte stimulating agent, to which he has responded reasonably well in the past. Part of that is because of his multiple hospitalizations, both here and at [facility] over the course of the past month. Additionally, he has not shown up for scheduled injections. RECOMMENDATIONS: I think that the patient could be transfused with 1 additional unit of packed cells. Would get him Procrit 40,000 units subQ today. I think he can then be discharged. We will arrange for him to receive his erythrocyte stimulating agents through the dialysis unit. He can return home on his usual medication program and dialysis program. I did discuss with him cutting back on hypertonic dialysate solutions if his blood pressure remains low in the morning and he has symptoms of orthostasis. Dialysis orders for tonight are written should he not be discharged. However, I do not see a major reason for him to remain in the hospital and he prefers to be discharged. I will continue to follow him as an outpatient.
--- NOTE | 2017-09-15 13:50 | ECHOCARDIOGRAM REPORT ---
*NOTICE TO RECEIVING LIBERTARIAN AGENCY This information is strictly Confidential and protected under [place] law. [place] law prohibits you from making any further disclosure of this information unless further disclosure is expressly permitted by the written consent of the person to whom it pertains or is authorized by law. A general authorization for the release of medical or other information is not sufficient for this purpose. Hospital accepts no responsibility if the information is made available to any other person, INCLUDING THE PATIENT. Interpretation Summary * : AURAEDUARDO Study Date: 09/15/2017 07:22 AM BP: 139/78 mmHg * Patient Location: .MSICU\S\E111\S\1 HR: 95 * : 1955 (M/d/yyyy) Gender: Male Height: 70 in * Age: 62 yrs Ethnicity: CA Weight: 209 lb * Ordering Physician: Deven Jaime * Referring Physician: Deven Jaime D.O. * Performed By: Jackeline Gallegos RCS * * Reason For Study: F/U RECENT BIOPROSTHETIC MV REPLACEMENT / CABG * BSA: 2.1 m2 * -- Conclusions -- * The left ventricle is normal in size. * There is severe concentric left ventricular hypertrophy. * Left ventricular systolic function is normal. * Septal motion is consistent with post-operative state. * No regional wall motion abnormalities noted. * Ejection Fraction = 60-65%. * The left atrium is moderately dilated. * Aortic valve sclerosis moderate, without significant aortic valvular stenosis. * There is a bioprosthetic mitral valve. * Prosthetic mitral valve peak and/or mean gradients are normal. * Bioprosthesis leaflets are thin and move normally. * There is trace mitral regurgitation. Procedure Details * A complete two-dimensional transthoracic echocardiogram was performed (2D, M-mode, Doppler and color flow Doppler). * A contrast injection of Definity was performed to improve assessment of LV function. * Contrast was injected into an intravenous site in the right arm. * One vial of Definity ultrasound contrast was diluted in normal saline to a total volume of 10 ml. A total of '2' ml of solution was administered during imaging. * Lot # [id number] of Definity utilized for procedure. * Expiration date OCT 24. * The attending nurse who injected the contrast agent was NEETA PEREZ, RN. Left Ventricle * The left ventricle is normal in size. * There is severe concentric left ventricular hypertrophy. * Left ventricular systolic function is normal. * Ejection Fraction = 60-65%. * Septal motion is consistent with post-operative state. * No regional wall motion abnormalities noted. Right Ventricle * The right ventricle is normal in size and function. Atria * The left atrium is moderately dilated. * Right atrial size is normal. * No ASD detected; PFO is not assessed. Mitral Valve * There is trace mitral regurgitation. * There is a bioprosthetic mitral valve. * Prosthetic mitral valve peak and/or mean gradients are normal. * Bioprosthesis leaflets are thin and move normally. Tricuspid Valve * The tricuspid valve is not well visualized, but is grossly normal. * There is no tricuspid stenosis. * There is mild tricuspid regurgitation. * Doppler findings do not suggest pulmonary hypertension. Aortic Valve * The aortic valve is trileaflet. * Aortic valve sclerosis moderate, without significant aortic valvular stenosis. * Trace aortic regurgitation. Pulmonic Valve * The pulmonic valve is not well visualized. Great Vessels * The aortic root is normal size. Pericardium/Pleural * There is no pericardial effusion. Great Vessels * Normal inferior vena cava diameter and respiratory variation suggests normal central venous pressure. MMode 2D Measurements and Calculations IVSd 2.0 cm IVSs 2.4 cm LVIDd 4.1 cm LVIDs 3.1 cm LVPWd 2.0 cm LVPWs 1.8 cm IVS/LVPW 0.99 FS 24.0 % EDV(Teich) 72.8 ml ESV(Teich) 37.6 ml EF(Teich) 48.3 % EDV(cubed) 67.2 ml ESV(cubed) 29.5 ml EF(cubed) 56.1 % % IVS thick 21.2 % % LVPW thick -12.05 % LV mass(C)d 382.8 grams LV mass(C)dI 180.0 grams/m\S\2 LV mass(C)s 297.1 grams LV mass(C)sI 139.7 grams/m\S\2 SV(Teich) 35.1 ml SI(Teich) 16.5 ml/m\S\2 SV(cubed) 37.7 ml SI(cubed) 17.7 ml/m\S\2 Ao root diam 2.7 cm Ao root area 5.7 cm\S\2 LA dimension 4.6 cm LA/Ao 1.7 LVOT diam 2.0 cm LVOT area 3.2 cm\S\2 LVAd ap4 32.9 cm\S\2 LVLd ap4 8.0 cm EDV(MOD-sp4) 109.7 ml EDV(sp4-el) 114.9 ml LVAs ap4 20.9 cm\S\2 LVLs ap4 6.1 cm ESV(MOD-sp4) 59.1 ml ESV(sp4-el) 61.1 ml EF(MOD-sp4) 46.1 % EF(sp4-el) 46.8 % LVAd ap2 42.4 cm\S\2 LVLd ap2 9.0 cm EDV(MOD-sp2) 167.2 ml EDV(sp2-el) 170.0 ml LVAs ap2 25.7 cm\S\2 LVLs ap2 7.7 cm ESV(MOD-sp2) 70.7 ml ESV(sp2-el) 72.6 ml EF(MOD-sp2) 57.7 % EF(sp2-el) 57.3 % LVLd %diff 10.9 % EDV(MOD-bp) 145.4 ml LVLs %diff 21.1 % ESV(MOD-bp) 73.3 ml EF(MOD-bp) 49.6 % SV(MOD-sp4) 50.6 ml SI(MOD-sp4) 23.8 ml/m\S\2 SV(MOD-sp2) 96.4 ml SI(MOD-sp2) 45.3 ml/m\S\2 SV(MOD-bp) 72.1 ml SI(MOD-bp) 33.9 ml/m\S\2 SV(sp4-el) 53.7 ml SI(sp4-el) 25.3 ml/m\S\2 SV(sp2-el) 97.4 ml SI(sp2-el) 45.8 ml/m\S\2 Doppler Measurements and Calculations MV E max violet 167.7 cm/sec MV A max violet 214.6 cm/sec MV E/A 0.78 MV P1/2t max violet 168.2 cm/sec MV P1/2t 60.0 msec MVA(P1/2t) 3.7 cm\S\2 MV dec slope 821.7 cm/sec\S\2 MV dec time 0.12 sec Ao V2 max 166.3 cm/sec Ao max PG 11.1 mmHg Ao max PG (full) 8.7 mmHg NENITA(V,A) 1.5 cm\S\2 NENITA(V,D) 1.5 cm\S\2 LV V1 max PG 2.3 mmHg LV V1 max 76.6 cm/sec MR max violet 538.4 cm/sec MR max PG 115.9 mmHg PA V2 max 75.1 cm/sec PA max PG 2.3 mmHg TR max violet 263.7 cm/sec
--- NOTE | 2017-09-15 13:56 | Discharge Summary ---
Discharge Summary Date of Service Sep 15, 2017. Discharge Summary Admission Date: Sep 14, 2017 at 19:21 Discharge Date: Sep 15, 2017 Discharge Disposition: Home Principal Diagnosis: symptomatic anemia Procedures: transfusion of 3 units PRBC peritoneal dialysis Consultations: nephrology Medication Reconciliation Continued Medications: Amiodarone Hcl (Cordarone) 200 Mg Tab 200 MG PO QPM, TAB Aspirin (Aspirin Ec) 81 Mg Tab 81 MG PO QPM B-Complex W/ C & Folic Acid (Triphrocaps) 1 Cap Cap 1 CAP PO DAILY Calcium Carbonate (Tums) 500 Mg Chew 500 MG PO UD PRN for Indigestion TAKE PER PACKAGE DIRECTIONS Cinacalcet (Sensipar) 30 Mg Tab 30 MG PO QPM, TAB Diphenhydramine Hcl (Benadryl) 25 Mg Cap 75 MG PO HS PRN for Sleep, CAP Fluticasone Propionate (Nasal) (Flonase Allergy Relief) 50 Mcg/Act Spr 2 SPRAYS RAFAEL DAILY PRN for Allergy Symptoms Hydrocortisone (Proctosol Hc) 90 Appln/30 Gm Cr 1 APPLN EXT BID PRN for Hemorrhoids for 7 Days, #1 TUBE Hydrocortisone (Topical) (Hydrocortisone) 1 % Oin 1 APPLN EXT BID PRN for itching for 30 Days Magnesium Oxide (Mg Supplement (Magnesium) 500 Mg Cap 500 MG PO 2XWK PRN for LOW MAG Sodium Bicarbonate (Sodium Bicarbonate) 650 Mg Tab 1300 MG PO DAILY Sucroferric Oxyhydroxide (Velphoro) 500 Mg Chw 500 MG PO UD TAKE ONE TAB WITH SNACKS Sucroferric Oxyhydroxide (Velphoro) 500 Mg Chw 1000 MG PO AC Tiotropium [place] (Spiriva Handihaler) 30 Puff/540 Mcg Aerp 1 CAP INH DAILY, CAP Discharge Exam Physical Exam: General Appearance: no apparent distress Respiratory/Chest: no respiratory distress, no accessory muscle use 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 -outpt f/u neuropathy -B12 good, not diabetic, doesn't show pattern to fit with spinal stenosis mediated radicular neuropathy -- suspect ESRD related as well -asks for outpt neuro eval - PCP notes he'll refer. discussed with pt high likelihood this relates to ESRD, likely biggest issue will be vigilance for skin breakdown, prevention of ulcers, etc ESRD -on PD, suspect would benefit from HD given above, ongoing management w nephrology; pt apparently has shown significant barriers in self-care throughout his course stable for discharge to home, close outpt f/u Total Time Spent: Greater than 30 minutes This includes examination of the patient, discharge planning, medication reconciliation, and communication with other providers. Discharge Instructions Please refer to the electronic Patient Visit Report (Discharge Instructions) for additional information. Additional Copies To Flakito Martinez M.D.
== END 2017-09-15 16:15 | disposition home or self-care (01) ==
LOC: C.EDB 14:44 → CANRESERV 18:53 → ENRESERV 18:53 → C.MSICU 19:21 → EDBEDREQSVC 19:43 → ENRESERV 19:46
PROVIDERS: ADMIT Internal Medicine; ATTEND Family Medicine
DX: D63.1 Anemia in chronic kidney disease (principal); N18.6 End stage renal disease; I12.0 Hypertensive chronic kidney disease with stage 5 chronic kidney disease or end stage renal disease; G62.9 Polyneuropathy, unspecified; I25.10 Atherosclerotic heart disease of native coronary artery without angina pectoris; I48.0 Paroxysmal atrial fibrillation; J44.9 Chronic obstructive pulmonary disease, unspecified; M10.9 Gout, unspecified; I25.2 Old myocardial infarction; Z79.82 Long term (current) use of aspirin; Z95.1 Presence of aortocoronary bypass graft; Z99.2 Dependence on renal dialysis; Z79.899 Other long term (current) drug therapy; Z95.2 Presence of prosthetic heart valve

== ENCOUNTER 2017-09-17 06:34 | Observation (INO) | payer OTHER ==
[2017-09-17] VITALS (18 sets, daily range): BP systolic 116–155; BP diastolic 72–85; PULSE 94–102; TEMP 36.4–37.2; O2SAT 96–100; Ht 177.8 cm; Wt 100.2 kg
[~2017-09-17] VITALS: Ht 177.8 cm; Wt 100.2 kg
[~2017-09-17 06:34] MED LIST changes: -CARV12.5 PO; -DOCU100C31 PO; -SENN-61 PO; +SODI650T8 PO; -TRAM-10 PO
[2017-09-17 07:16] LABS: PTT PATIENT 25.6 SECONDS (21.0-31.0)
[2017-09-17 07:21] LABS: HEMATOCRIT 20.9 % (42-52); HEMOGLOBIN 6.8 g/dL (14.0-18.0); MEAN CORPUSCULAR HEMOGLOBIN 30.9 pg (25-34); MEAN CORPUSCULAR HGB CONC 32.5 g/dl (32-36); MEAN PLATELET VOLUME 9.6 fL (7.4-10.4); NUCLEATED RED BLOOD CELL ABS 0.08 K/uL (0-0); PLATELET COUNT 183 K/uL (130-400); RED CELL DISTRIBUTION WIDTH CV 20.2 % (11.5-14.5); RED CELL DISTRIBUTION WIDTH SD 65.2 fL (36.4-46.3); WHITE BLOOD COUNT 11.65 K/uL (4.8-10.8)
[2017-09-17 07:28] LABS: ALBUMIN 2.1 gm/dl (3.4-5.0); CALCIUM 8.2 mg/dl (8.5-10.1); CREATININE 14.5 mg/dl (0.60-1.40); POTASSIUM 3.9 mmol/L (3.5-5.1); TOTAL PROTEIN 5.3 gm/dl (6.4-8.2)
[2017-09-17 07:45] LABS: BASO % 0.5 %; BASO ABS # 0.06 K/uL (0-0.2); EOS % 0.8 %; EOS ABS # 0.09 K/uL (0-0.5); IG# 1.13 K/uL (0.00-0.02); LYMPH ABS # 1.63 K/uL (1.2-3.4); MONO % 10.2 %; MONO ABS # 1.19 K/uL (0.11-0.59); NEUT % 64.8 %; NEUT ABS # 7.55 K/uL (1.4-6.5)
--- NOTE | 2017-09-17 07:45 | EMERGENCY ROOM VISIT NOTE ---
ED Visit Note First contact with patient: 07:09 The patient was seen and examined with Elliott Stephens PA-C. I agree with the history, physical and findings. Please see the note for disposition and details.
[2017-09-17] MEDS ORDERED: FAMOTIDINE 20MG/5ML IV PUSH IV STA (07:57)
[2017-09-17 08:08] LABS: CKMB 1.9 ng/ml (0.5-3.6)
--- NOTE | 2017-09-17 08:33 | DIAGNOSTIC IMAGING REPORT ---
ABD/PELVIS NO IV OR ORAL CONT CT DOSE: 1038.37 mGy.cm HISTORY: Nausea abdominal pain TECHNIQUE: Multiaxial CT images of the abdomen and pelvis were performed without contrast. A dose lowering technique was utilized adhering to the principles of ALARA. COMPARISON STUDY: 12/14/2016 FINDINGS: Mild bibasilar atelectasis. Possible early hepatic cirrhotic change. Small amount of perihepatic and perisplenic ascites. Pancreas is uniform. Kidneys are moderately atrophic with multiple nonobstructing calcifications. These are similar compared to the prior study. Nonobstructive bowel pattern. Minimal nonobstructive ileus. Small amount of ascites in the abdomen as well as pelvis. Indwelling drainage and/or dialysate catheter within the pelvis. IMPRESSION: 1. Dialysis catheter versus drainage catheter within the low pelvis. 2. Minimal/mild ascites versus dialysate. 3. Mild nonobstructive ileus. 4. Probable early hepatic cirrhotic change with chronic atrophy and calcification of the kidneys bilaterally. 5. Incidental note is made of inhomogeneous appearing spleen. This may been present on the prior study may represent an old focal infarct. The above report was generated using voice recognition software. It may contain grammatical, syntax or spelling errors. Electronically signed by: Aj Ojeda M.D. 09/17/2017 8:32 AM Dictated Date/Time: 09/17/2017 8:26 AM
[2017-09-17] MEDS ORDERED: FLUTICASONE PROPIONATE NA SPR 16 GM BTL NAE PRN (09:15)
[2017-09-17] MEDS ORDERED: ACETAMINOPHEN 325 MG TAB PO PRN (09:15)
[2017-09-17] MEDS ORDERED: ALUMINUM/MAGNESIUM/SIMETH (MAALOX MAX) 30 ML UDC PO PRN (09:15)
[2017-09-17] MEDS ORDERED: HYDROCORTISONE HC 2.5% CRM 30GM TUBE EXT PRN (09:15)
[2017-09-17] MEDS ORDERED: HYDROCORTISONE 1% CR 30 GM TUBE EXT PRN (09:15)
[2017-09-17] MEDS ORDERED: MAGNESIUM OXIDE 400 MG TAB PO PRN (09:15)
[2017-09-17] MEDS ORDERED: CALCIUM CARBONATE 500 MG CHEWABLE PO PRN (09:15)
[2017-09-17] MEDS ORDERED: SUCROFERRIC OXYHYDROXIDE 500 MG PO SCH (09:15)
[2017-09-17] MEDS ORDERED: MAGNESIUM HYDROXIDE SUSP 30 ML UDC PO PRN (09:15)
[2017-09-17] MEDS ORDERED: ONDANSETRON INJ 2 MG/ML 2 ML VIAL IV PRN (09:15)
[2017-09-17] MEDS ORDERED: IV FLUIDS COMPLETED PRN (11:45)
--- NOTE | 2017-09-17 12:44 | Nephrology Consultation ---
Nephrology Consultation Date & Providers Date of Consultation: Sep 17, 2017. Primary Care Provider: Flakito Martinez M.D. Referring Provider: Reason for Consultation Management for end-stage renal disease on peritoneal dialysis. History of Present Illness Mr. Grullon is a 62 year old white male with ESRD on CCPD, HTN, anemia with history of GI bleeding, ASCVD and paroxysmal atrial fibrillation presented with another episode of GI bleeding, dizziness and nausea. Electronic medical records were reviewed in detail during patient's visit. Mr. Grullon has history of chronic anemia with GI bleeding recently had a hospital admission just last week with hemoglobin 6.1. He has 3 units of blood transfusion prior to discharge. Was evaluated by GI. Had EGD and colonoscopy done in December 2015, EGD was otherwise unremarkable, colonoscopy showed hyperplastic polyp which was removed and had large external hemorrhoid. After discharge 3 days ago she noticed another episode of GI bleeding with bright red blood per rectum, but he noted that episode. Last night he started feeling dizzy and lightheaded and decided to come to ED for further evaluation. On admission hemoglobin was 6.8. He has order for 2 units of blood transfusion, already received 1 unit. He reports being started on aspirin 81 milligram on discharge after last admission and he is convinced that aspirin is causing GI bleeding. He was previously on Coumadin which was continued due to recurrent GI bleeding during last admission he was started on aspirin. His past medical history significant for end-stage renal disease has been on peritoneal dialysis, on a cycler at home has 5 exchanges with 20/100 mL dwell volume. [place] through treatment last night had to stop the treatment to come to the emergency room. The He had history of emergency arterial thrombectomy previously ischemic foot. Evaluation revealed a negative NANCY, negative anticardiolipin Ab. 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 Patient was transferred to [facility] in [facility] and underwent bioprosthetic MVR. Histology of the vegetation was negative for infection. Post-op he was restarted on Warfarin due to his recent arterial thrombosis. Allergies Coded Allergies: No Known Allergies (Unverified , 09/17/17) Inpatient Medications Current Inpatient Medications Medications (Trade) Dose Ordered Sig/Aleksandra Route Start Time Stop Time Status Last Admin Dose Admin Acetaminophen (Tylenol Tab) 650 mg Q4H PRN PO 09/17/17 09:15 10/17/17 09:14 Al Hydrox/Mg Hydrox/Simethicone (Maalox Max Susp) 15 ml Q4H PRN PO 09/17/17 09:15 10/17/17 09:14 Magnesium Hydroxide (Milk Of Magnesia Susp) 30 ml Q6H PRN PO 09/17/17 09:15 10/17/17 09:14 Ondansetron HCl (Zofran Inj) 4 mg Q6H PRN IV 09/17/17 09:15 10/17/17 09:14 Amiodarone HCl (Cordarone Tab) 200 mg QPM PO 09/17/17 21:00 10/17/17 20:59 Vitamin B Complex/ Vit C/Folic Acid (Nephrocaps) 1 cap DAILY PO 09/18/17 08:00 10/18/17 08:59 Calcium Carbonate (Tums Chew Tab) 500 mg UD PRN PO 09/17/17 09:15 10/17/17 09:14 Diphenhydramine HCl (Benadryl Cap) 75 mg HS PRN PO 09/17/17 09:15 10/17/17 09:14 Fluticasone Propionate (Flonase Nasal Sunflower) 2 sprays DAILY PRN RAFAEL 09/17/17 09:15 10/17/17 09:14 Hydrocortisone (Proctozone Hc 2.5% Crm) 1 appln BID PRN EXT 09/17/17 09:15 10/17/17 09:14 Hydrocortisone (Hydrocortisone 1% Crm) 1 appln BID PRN EXT 09/17/17 09:15 10/17/17 09:14 Sodium Bicarbonate (Sodium Bicarbonate Tab) 1,300 mg DAILY PO 09/18/17 08:00 10/18/17 08:59 Tiotropium [place] (Spiriva Handihaler Inhaler) 1 puff DAILY INH 09/18/17 08:00 10/18/17 08:59 Miscellaneous Information (Order Awaiting Action) 1 ea QS N/A 09/17/17 16:00 10/17/17 15:59 Magnesium Oxide (Mag-Ox Tab) 400 mg Q3D PRN PO 09/17/17 09:15 10/17/17 09:14 Miscellaneous Information (Order Awaiting Action) 1 ea QS N/A 09/17/17 16:00 2/12/18 15:59 Family History Diabetes mellitus FATHER FH: CHF (congestive heart failure) FATHER Hypertension FATHER Social History Smoking Status: Never Smoker Drug Use: none Marital Status: Housing Status: lives with family, lives with significant other Occupation: employed Review of Systems A complete review of systems was performed. Pertinent positives are noted above. All other systems are negative. Physical Exam Date Time Temp Pulse Resp B/P (MAP) Pulse Ox O2 Delivery O2 Flow Rate FiO2 09/17/17 10:46 36.9 94 20 141/79 100 4.0 09/17/17 10:45 36.9 94 20 141/79 100 Nasal Cannula 4.0 09/17/17 10:19 36.9 99 18 142/75 100 4.0 09/17/17 10:11 36.9 98 18 141/77 100 09/17/17 10:00 36.9 98 18 141/77 100 4.0 09/17/17 09:45 95 19 146/78 98 09/17/17 09:45 36.6 95 18 146/78 99 09/17/17 09:34 94 09/17/17 09:31 155/85 09/17/17 09:30 36.6 95 20 155/85 100 4.0 09/17/17 09:15 36.6 96 16 135/75 97 4.0 09/17/17 09:15 97 18 134/75 100 09/17/17 09:00 129/80 09/17/17 09:00 36.4 100 18 129/80 100 4.0 09/17/17 08:58 140/78 09/17/17 08:57 36.4 100 18 140/78 100 4.0 09/17/17 08:45 100 25 100 09/17/17 08:30 129/78 09/17/17 08:28 131/79 09/17/17 08:00 135/78 09/17/17 07:45 101 8 93 09/17/17 07:30 136/74 09/17/17 07:15 100 22 100 09/17/17 07:00 136/69 09/17/17 06:45 102 17 98 09/17/17 06:45 98 Nasal Cannula 4.0 09/17/17 06:43 106 09/17/17 06:40 36.5 101 16 109/61 70 Room Air Do GENERAL: middle aged male, AAA x 3, pleasant, healthy-appearing, not in any distress. HEENT: Atraumatic, normocephalic. NECK: Supple, no JVD, no carotid bruit appreciated. ENT: No sinus tenderness MOUTH and THROAT: Moist oral mucosa, no oral ulcer or pharyngeal erythema RESPIRATORY: Normal breathing efforts, no accessory muscle use, clear to auscultation bilaterally, no wheezes or rales. CARDIOVASCULAR: S1, S2 normal, rate rhythm regular. ABDOMEN: Soft, nontender, positive bowel sound. The PD catheter area nontender , no it erythema or discharge. MUSCULOSKELETAL: No CVA tenderness. No joint swelling, erythema or tenderness. Normal range of motion. SKIN: No skin rash EXTREMITY: No lower extremity edema NEURO: No gross focal neurological deficit, speech fluent. PSYCHIATRY: Normal mood and judgment Laboratory Results Last 24 Hours Test 09/17/17 06:43 White Blood Count 11.65 K/uL Red Blood Count 2.20 M/uL Hemoglobin 6.8 g/dL Hematocrit 20.9 % Mean Corpuscular Volume 95.0 fL Mean Corpuscular Hemoglobin 30.9 pg Mean Corpuscular Hemoglobin Concent 32.5 g/dl Platelet Count 183 K/uL Mean Platelet Volume 9.6 fL Neutrophils (%) (Auto) 64.8 % Lymphocytes (%) (Auto) 14.0 % Monocytes (%) (Auto) 10.2 % Eosinophils (%) (Auto) 0.8 % Basophils (%) (Auto) 0.5 % Neutrophils # (Auto) 7.55 K/uL Lymphocytes # (Auto) 1.63 K/uL Monocytes # (Auto) 1.19 K/uL Eosinophils # (Auto) 0.09 K/uL Basophils # (Auto) 0.06 K/uL RDW Standard Deviation 65.2 fL RDW Coefficient of Variation 20.2 % Immature Granulocyte % (Auto) 9.7 % Immature Granulocyte # (Auto) 1.13 K/uL Nucleated RBC Absolute Count (auto) 0.08 K/uL Nucleated Red Blood Cells % 0.7 % Anisocytosis PRESENT Prothrombin Time 11.0 SECONDS Prothromb Time International Ratio 1.0 Activated Partial Thromboplast Time 25.6 SECONDS Partial Thromboplastin Ratio 1.0 Sodium Level 137 mmol/L Potassium Level 3.9 mmol/L Chloride Level 99 mmol/L Carbon Dioxide Level 25 mmol/L Anion Gap 13.0 mmol/L Blood Urea Nitrogen 114 mg/dl Creatinine 14.50 mg/dl Est Creatinine Clear Calc Drug Dose 6.3 ml/min Estimated GFR () 3.7 Estimated GFR (Non- 3.2 BUN/Creatinine Ratio 7.9 Random Glucose 132 mg/dl Calcium Level 8.2 mg/dl Total Bilirubin 0.8 mg/dl Aspartate Amino Transf (AST/SGOT) 14 U/L Alanine Aminotransferase (ALT/SGPT) 12 U/L Alkaline Phosphatase 84 U/L Total Creatine Kinase 54 U/L Creatine Kinase MB 1.9 ng/ml Creatine Kinase MB Ratio 3.5 Troponin I 0.134 ng/ml Total Protein 5.3 gm/dl Albumin 2.1 gm/dl Globulin 3.2 gm/dl Albumin/Globulin Ratio 0.7 Impression (1) End stage renal disease (2) HTN (hypertension) (3) GI bleed (4) Anemia due to chronic kidney disease Mr. Grullon the a 62-year-old gentlemen with end-stage renal disease on peritoneal dialysis admitted to the hospital with anemia and GI bleeding. Hemoglobin was 6.8 and a on admission, received 2 units of blood transfusion. Was recently admitted to the hospital and discharged 3 days ago with a another episode of GI bleeding, evaluated by GI at that time. Previously had EGD colonoscopy showing colonic polyp and external hemorrhoids. Patient is recently started on aspirin and patient claims that is responsible for GI bleeding, although it will be unlikely to see a lower GI bleeding with aspirin and be more likely related to external hemorrhoids. Has been on renal dialysis with a cycler as, last night had incomplete treatment. Currently electrolyte acceptable, blood pressure stable and volume status is acceptable as well. Recommendations --Although his blood pressure normal in fact slightly on the higher side, volume status stable, patient wanted to be on 1.25 dextrose as he feels like his blood pressure low and he is dehydrated. However, he did not have full treatment last nigt and now getting 2 units of PRBC, he should be on 2.5 % Dextrose. He will be on 1.25% if he does want agree with the above plan. --will put him on cycler with 27 cc dwell volume. Discussed with dialysis nurse in put order for peritoneal dialysis in EMR, will be available for any concern during treatment. --avoid IV fluid --continue on binders with meals, Sensipar and Nephrocaps Thank you for allowing me to participate in your patient's care. It was a pleasure to see Mr. Grullon
[2017-09-17] MEDS ORDERED: VELPHORO: ORDER AWAITING ACTION SCH (16:00)
--- NOTE | 2017-09-17 16:54 | Discharge Instructions ---
Discharge Instructions Date of Service Sep 17, 2017. Admission Reason for Admission: Symptomatic Anemia Discharge Discharge Diagnosis / Problem: anemia, related to kidney disease, GI losses and aspirin Discharge Goals Goal(s): Diagnostic testing, Therapeutic intervention Activity Recommendations Activity Limitations: resume your previous activity . Instructions / Follow-Up Instructions / Follow-Up have a repeat CBC checked at Dr Martinez's office early this coming week *the EPO analog Dr Martinez is prescribing for you is not able to be added to your official med list as it's not in this computer system - ensure that it gets started for you in the near future* Current Hospital Diet Patient's current hospital diet: Renal Diet, Low Sodium Diet (2gm Na) Discharge Diet Recommended Diet: Low Sodium Diet (2gm Na), Renal Diet Pending Studies Studies pending at discharge: no Laboratory Results Hemoglobin A1c Test 08/17/17 11:41 Range/Units Estimated Average Glucose 154 mg/dl Hemoglobin A1c 7.0 H 4.5-5.6 % Lipid Panel Test 08/18/17 05:39 Range/Units Triglycerides Level 64 0-150 mg/dl Cholesterol Level 161 0-200 mg/dl HDL Cholesterol 59 mg/dl Cholesterol/HDL Ratio 2.7 LDL Cholesterol, Calculated 89 mg/dl Medical Emergencies . Who to Call and When: Medical Emergencies: If at any time you feel your situation is an emergency, please call 911 immediately. . Non-Emergent Contact Non-Emergency issues call your: Primary Care Provider, [employer] . . "Provider Documentation" section prepared by Naeem Guzman. . VTE Core Measure Inpt VTE Proph given/why not?: Contraindicated
--- NOTE | 2017-09-17 17:05 | History and Physical ---
History & Physical Date & Time of Service: Sep 17, 2017 at 16:58 Chief Complaint: Symptomatic Anemia Primary Care Physician: Flakito Martinez M.D. Past Medical/Surgical History Medical Problems: (1) Anemia due to chronic kidney disease Status: Chronic (2) ESRD (end stage renal disease) Status: Chronic (3) GI bleed Status: Resolved (4) HTN (hypertension) Status: Chronic (5) NSTEMI (non-ST elevated myocardial infarction) Permanent Comment: due to severe anemia Status: Resolved Surgical Problems: (1) H/O colonoscopy Status: Chronic (2) History of dental surgery Status: Chronic (3) History of esophagogastroduodenoscopy (EGD) Status: Chronic Family History Diabetes mellitus FATHER FH: CHF (congestive heart failure) FATHER Hypertension FATHER Social History Smoking Status: Never Smoker Drug Use: none Marital Status: Housing status: lives with family, lives with significant other Occupational Status: employed Multi-Drug Resistant Organisms History of MDRO: No Allergies Coded Allergies: No Known Allergies (Unverified , 09/17/17) Home Medications Scheduled Amiodarone Hcl (Cordarone), 200 MG PO QPM Aspirin (Aspirin Ec), 81 MG PO QPM B-Complex W/ C & Folic Acid (Triphrocaps), 1 CAP PO DAILY Cinacalcet (Sensipar), 30 MG PO QPM Sodium Bicarbonate (Sodium Bicarbonate), 1,300 MG PO DAILY Sucroferric Oxyhydroxide (Velphoro), 500 MG PO UD Sucroferric Oxyhydroxide (Velphoro), 1,000 MG PO AC Tiotropium [place] (Spiriva Handihaler), 1 CAP INH DAILY Scheduled PRN Calcium Carbonate (Tums), 500 MG PO UD PRN for Indigestion Diphenhydramine Hcl (Benadryl), 75 MG PO HS PRN for Sleep Fluticasone Propionate (Nasal) (Flonase Allergy Relief), 2 SPRAYS RAFAEL DAILY PRN for Allergy Symptoms Hydrocortisone (Proctosol Hc), 1 APPLN EXT BID PRN for Hemorrhoids Hydrocortisone (Topical) (Hydrocortisone), 1 APPLN EXT BID PRN for itching Magnesium Oxide (Mg Supplement (Magnesium), 500 MG PO 2XWK PRN for LOW MAG Physical Exam Vital Signs Date Time Temp Pulse Resp B/P (MAP) Pulse Ox O2 Delivery O2 Flow Rate FiO2 09/17/17 15:25 36.8 94 20 144/74 (97) 98 Room Air 09/17/17 14:19 37.2 102 20 123/77 96 09/17/17 13:25 36.7 96 20 133/73 09/17/17 12:55 36.8 94 20 129/76 98 09/17/17 12:51 36.7 94 16 139/76 (97) 100 Nasal Cannula 2.0 09/17/17 12:40 36.7 94 16 139/76 100 2.0 09/17/17 12:23 36.8 94 20 116/72 100 2.0 09/17/17 11:55 36.8 95 20 123/78 98 2.0 09/17/17 10:46 36.9 94 20 141/79 100 4.0 09/17/17 10:45 36.9 94 20 141/79 100 Nasal Cannula 4.0 09/17/17 10:19 36.9 99 18 142/75 100 4.0 09/17/17 10:11 36.9 98 18 141/77 100 09/17/17 10:00 36.9 98 18 141/77 100 4.0 09/17/17 09:45 95 19 146/78 98 09/17/17 09:45 36.6 95 18 146/78 99 09/17/17 09:34 94 09/17/17 09:31 155/85 09/17/17 09:30 36.6 95 20 155/85 100 4.0 09/17/17 09:15 36.6 96 16 135/75 97 4.0 09/17/17 09:15 97 18 134/75 100 09/17/17 09:00 129/80 09/17/17 09:00 36.4 100 18 129/80 100 4.0 09/17/17 08:58 140/78 09/17/17 08:57 36.4 100 18 140/78 100 4.0 09/17/17 08:45 100 25 100 09/17/17 08:30 129/78 09/17/17 08:28 131/79 09/17/17 08:00 135/78 09/17/17 07:45 101 8 93 09/17/17 07:30 136/74 09/17/17 07:15 100 22 100 09/17/17 07:00 136/69 09/17/17 06:45 102 17 98 09/17/17 06:45 98 Nasal Cannula 4.0 09/17/17 06:43 106 09/17/17 06:40 36.5 101 16 109/61 70 Room Air Diagnostics Laboratory Results Results Past 24 Hours Test 09/17/17 06:43 Range/Units White Blood Count 11.65 4.8-10.8 K/uL Red Blood Count 2.20 4.7-6.1 M/uL Hemoglobin 6.8 14.0-18.0 g/dL Hematocrit 20.9 42-52 % Mean Corpuscular Volume 95.0 80-100 fL Mean Corpuscular Hemoglobin 30.9 25-34 pg Mean Corpuscular Hemoglobin Concent 32.5 32-36 g/dl Platelet Count 183 130-400 K/uL Mean Platelet Volume 9.6 7.4-10.4 fL Neutrophils (%) (Auto) 64.8 % Lymphocytes (%) (Auto) 14.0 % Monocytes (%) (Auto) 10.2 % Eosinophils (%) (Auto) 0.8 % Basophils (%) (Auto) 0.5 % Neutrophils # (Auto) 7.55 1.4-6.5 K/uL Lymphocytes # (Auto) 1.63 1.2-3.4 K/uL Monocytes # (Auto) 1.19 0.11-0.59 K/uL Eosinophils # (Auto) 0.09 0-0.5 K/uL Basophils # (Auto) 0.06 0-0.2 K/uL RDW Standard Deviation 65.2 36.4-46.3 fL RDW Coefficient of Variation 20.2 11.5-14.5 % Immature Granulocyte % (Auto) 9.7 % Immature Granulocyte # (Auto) 1.13 0.00-0.02 K/uL Nucleated RBC Absolute Count (auto) 0.08 0-0 K/uL Nucleated Red Blood Cells % 0.7 % Anisocytosis PRESENT Prothrombin Time 11.0 9.0-12.0 SECONDS Prothromb Time International Ratio 1.0 0.9-1.1 Activated Partial Thromboplast Time 25.6 21.0-31.0 SECONDS Partial Thromboplastin Ratio 1.0 Sodium Level 137 136-145 mmol/L Potassium Level 3.9 3.5-5.1 mmol/L Chloride Level 99 98-107 mmol/L Carbon Dioxide Level 25 21-32 mmol/L Anion Gap 13.0 3-11 mmol/L Blood Urea Nitrogen 114 7-18 mg/dl Creatinine 14.50 0.60-1.40 mg/dl Est Creatinine Clear Calc Drug Dose 6.3 ml/min Estimated GFR () 3.7 Estimated GFR (Non- 3.2 BUN/Creatinine Ratio 7.9 10-20 Random Glucose 132 70-99 mg/dl Calcium Level 8.2 8.5-10.1 mg/dl Total Bilirubin 0.8 0.2-1 mg/dl Aspartate Amino Transf (AST/SGOT) 14 15-37 U/L Alanine Aminotransferase (ALT/SGPT) 12 12-78 U/L Alkaline Phosphatase 84 45-117 U/L Total Creatine Kinase 54 39-308 U/L Creatine Kinase MB 1.9 0.5-3.6 ng/ml Creatine Kinase MB Ratio 3.5 0-3.0 Troponin I 0.134 0-0.045 ng/ml Total Protein 5.3 6.4-8.2 gm/dl Albumin 2.1 3.4-5.0 gm/dl Globulin 3.2 2.5-4.0 gm/dl Albumin/Globulin Ratio 0.7 0.9-2 Microbiology Results 09/17/17 MRSA DNA Surveillance Screen, Received Pending Impression Assessment and Plan obs admit/dc #[id number] Advanced Directives Existing Living Will: Yes Existing Power of Lathe Hand: Yes VTE Prophylaxis VTE Risk Assessment Done? Y/N: Yes Risk Level: Moderate Given or contraindicated: Contraindicated
--- NOTE | 2017-09-17 17:06 | Discharge Summary ---
Discharge Summary Date of Service Sep 17, 2017. Discharge Summary Admission Date: Sep 17, 2017 at 09:06 Discharge Date: Sep 17, 2017 Discharge Disposition: Home Principal Diagnosis: symptomatic anemia Hospital Course obs admit/dc #[id number] Total Time Spent: Less than 30 minutes This includes examination of the patient, discharge planning, medication reconciliation, and communication with other providers. Discharge Instructions Please refer to the electronic Patient Visit Report (Discharge Instructions) for additional information.
--- NOTE | 2017-09-17 18:30 | EMERGENCY ROOM VISIT NOTE ---
History First contact with patient: 07:09 Chief Complaint: DIZZY Stated Complaint: SYMPTOMATIC ANEMIA Nursing Triage Summary: pt c/o abdominal pain for 2 days, increased dizziness, worse with dialysis. Pt states he is still extremely dizzy. Pt anxious in room. Feels like he is going to pass out. History of Present Illness The patient is a 62 year old white male who presents to the Emergency Room with complaints of increased dizziness today. He does peritoneal dialysis. He has had intermittent abdominal pain for the last 2 days. He states there is no abdominal pain currently. He did start peritoneal dialysis or early this morning and became increasingly dizzy. He states he ate a tablespoon of salt and drank some water, which usually cures his dizziness. It did not help this time. He feels anxious. He feels as though he cannot keep his leg still. No chest pain or shortness of breath. He was just admitted to the hospital 3 days ago, and was discharged 2 days ago. He was anemic at that time and received 4 units of packed RBCs. States he does have a bleeding hemorrhoid, but only had blood in his stools 2 days ago. He denies any blood today. No nausea or vomiting. No cold symptoms. No other complaints. Review of Systems REVIEW OF SYSTEM: HEENT: No visual problems, hearing loss, or tinnitus. There is no difficulty swallowing and no oral lesions are present. PULMONARY: No cough, shortness of breath, sputum production or hemoptysis. CARDIOVASCULAR: No palpitations, shortness of breath or peripheral edema. GASTROINTESTINAL: No diarrhea, constipation, nausea, or vomiting. GENITOURINARY: No dysuria, frequency, urgency or nocturia. NEUROLOGIC: No weakness, muscle tenderness, epilepsy or history of neurological problems. No history of chronic headaches. MUSCULOSKELETAL: No history of joint tenderness/swelling. Positive history of arthritis and arthralgias. SKIN: Positive history of rashes and lesions. PSYCHIATRIC: No history of depression or mental illness. ENDOCRINE: No history of diabetes, thyroid disorders, or abnormal hair growth. Past Medical/Surgical History Medical Problems: (1) Anemia due to chronic kidney disease (2) Arthralgia (3) CAD (coronary artery disease) (4) Chest pain (5) ESRD (end stage renal disease) (6) GI bleed (7) Hemothorax on left (8) HTN (hypertension) (9) Hyperkalemia (10) Hypertensive urgency (11) Ischemic foot (12) Ischemic rest pain of lower extremity (13) Loculated pleural effusion (14) NSTEMI (non-ST elevated myocardial infarction) (15) Symptomatic anemia Surgical Problems: (1) H/O colonoscopy (2) Heart valve replaced (3) History of dental surgery (4) History of esophagogastroduodenoscopy (EGD) (5) History of mitral valve replacement with bioprosthetic valve (6) Mitral valve replaced (7) [place] teeth extracted Family History Diabetes mellitus FATHER FH: CHF (congestive heart failure) FATHER Hypertension FATHER Social History Smoking Status: Former Smoker Smokeless Tobacco Use: No Alcohol Use: occasionally Drug Use: none Marital Status: Housing Status: lives with significant other Occupation Status: employed Current/Historical Medications Scheduled Amiodarone Hcl (Cordarone), 200 MG PO QPM B-Complex W/ C & Folic Acid (Triphrocaps), 1 CAP PO DAILY Cinacalcet (Sensipar), 30 MG PO QPM Sodium Bicarbonate (Sodium Bicarbonate), 1,300 MG PO DAILY Sucroferric Oxyhydroxide (Velphoro), 500 MG PO UD Sucroferric Oxyhydroxide (Velphoro), 1,000 MG PO AC Tiotropium [place] (Spiriva [place]ihaler), 1 CAP INH DAILY Scheduled PRN Calcium Carbonate (Tums), 500 MG PO UD PRN for Indigestion Diphenhydramine Hcl (Benadryl), 75 MG PO HS PRN for Sleep Fluticasone Propionate (Nasal) (Flonase Allergy Relief), 2 SPRAYS RAFAEL DAILY PRN for Allergy Symptoms Hydrocortisone (Proctosol Hc), 1 APPLN EXT BID PRN for Hemorrhoids Hydrocortisone (Topical) (Hydrocortisone), 1 APPLN EXT BID PRN for itching Magnesium Oxide (Mg Supplement (Magnesium), 500 MG PO 2XWK PRN for LOW MAG Physical Exam Vital Signs Date Time Temp Pulse Resp B/P (MAP) Pulse Ox O2 Delivery O2 Flow Rate FiO2 09/17/17 09:00 129/80 09/17/17 09:00 36.4 100 18 129/80 100 4.0 09/17/17 08:58 140/78 09/17/17 08:57 36.4 100 18 140/78 100 4.0 09/17/17 08:45 100 25 100 1/13/18 08:30 129/78 09/17/17 08:28 131/79 09/17/17 08:00 135/78 09/17/17 07:45 101 8 93 09/17/17 07:30 136/74 09/17/17 07:15 100 22 100 09/17/17 07:00 136/69 09/17/17 06:45 102 17 98 09/17/17 06:45 98 Nasal Cannula 4.0 09/17/17 06:43 106 09/17/17 06:40 36.5 101 16 109/61 70 Room Air Physical Exam Gen.: Well-developed, well-nourished, middle-aged white male, in obvious discomfort. He is restless. No acute distress. Laying on a bed. Alert and oriented. Skin:Warm and dry with fair turgor. Pale. No rashes or lesions. No ecchymosis or erythema. The patient is not diaphoretic. No abrasions. Multiple keratoses present on his extremities. Healing surgical incision on his mid chest wall. HEENT: Normocephalic atraumatic. Eyes PERRLA, EOMI. No conjunctiva or scleral injection. Ears TMs intact bilaterally with good light reflexes. No erythema or bulging. No hemotympanum. Canals are patent. Nares patent bilaterally without turbinate enlargement. No significant drainage. No epistaxis. Oropharynx without erythema or exudate. Uvula midline, oral mucosa dry. No lesions present. Poor dentition. Heart: Heart RRR. No MGR. Peripheral pulses are 2+. Lungs: Lungs are clear to auscultation. No crackles rhonchi or wheezing. Good air movement. The patient is able to take a deep breath. Abdomen: Abdomen was inspected, auscultated, and palpated. Obese. Bowel sounds present x 4. Soft, very mild tenderness over the lower abdomen to palpation. No hepato-splenomegaly. No masses noted. No rebound. No CVA tenderness. Musculoskeletal: Gross motor function of the upper and lower extremities is intact and unremarkable. Neurologic: Gross sensation is intact across the upper and lower extremities by soft touch. Rectal: Patient does have an external hemorrhoid. No btehany blood. He does have visible black stool. Digital exam shows good sphincter tone. No palpable masses. Stool was Hemoccult positive. Medical Decision & Procedures ER Provider Diagnostic Interpretation: CT scan imaging of the abdomen and pelvis was done without IV contrast. This was read by radiology as positive for peritoneal catheter. Minimal/mild ascites versus dialysate. Mild nonobstructive ileus. Probable early hepatic cirrhotic change with chronic atrophy and calcification of the kidneys bilaterally. Incidental note is made of inhomogeneous appearing spleen. EKG obtained today shows a sinus tachycardia with a rate of 101. Left atrial enlargement is suggested. When compared to his previous EKG from 3 days ago, he no longer has depression of the ST segment in the lateral leads. Laboratory Results 09/17/17 06:43 Red Blood Count 2.20, Mean Corpuscular Volume 95.0, Mean Corpuscular Hemoglobin 30.9, Mean Corpuscular Hemoglobin Concent 32.5, Mean Platelet Volume 9.6, Neutrophils (%) (Auto) 64.8, Lymphocytes (%) (Auto) 14.0, Monocytes (%) (Auto) 10.2, Eosinophils (%) (Auto) 0.8, Basophils (%) (Auto) 0.5, Neutrophils # (Auto ) 7.55, Lymphocytes # (Auto) 1.63, Monocytes # (Auto) 1.19, Eosinophils # (Auto ) 0.09, Basophils # (Auto) 0.06 09/17/17 06:43 Test 09/17/17 06:43 White Blood Count 11.65 K/uL (4.8-10.8) Red Blood Count 2.20 M/uL (4.7-6.1) Hemoglobin 6.8 g/dL (14.0-18.0) Hematocrit 20.9 % (42-52) Mean Corpuscular Volume 95.0 fL (80-100) Mean Corpuscular Hemoglobin 30.9 pg (25-34) Mean Corpuscular Hemoglobin Concent 32.5 g/dl (32-36) Platelet Count 183 K/uL (130-400) Mean Platelet Volume 9.6 fL (7.4-10.4) Neutrophils (%) (Auto) 64.8 % Lymphocytes (%) (Auto) 14.0 % Monocytes (%) (Auto) 10.2 % Eosinophils (%) (Auto) 0.8 % Basophils (%) (Auto) 0.5 % Neutrophils # (Auto) 7.55 K/uL (1.4-6.5) Lymphocytes # (Auto) 1.63 K/uL (1.2-3.4) Monocytes # (Auto) 1.19 K/uL (0.11-0.59) Eosinophils # (Auto) 0.09 K/uL (0-0.5) Basophils # (Auto) 0.06 K/uL (0-0.2) RDW Standard Deviation 65.2 fL (36.4-46.3) RDW Coefficient of Variation 20.2 % (11.5-14.5) Immature Granulocyte % (Auto) 9.7 % Immature Granulocyte # (Auto) 1.13 K/uL (0.00-0.02) Nucleated RBC Absolute Count (auto) 0.08 K/uL (0-0) Nucleated Red Blood Cells % 0.7 % Anisocytosis PRESENT Prothrombin Time 11.0 SECONDS (9.0-12.0) Prothromb Time International Ratio 1.0 (0.9-1.1) Activated Partial Thromboplast Time 25.6 SECONDS (21.0-31.0) Partial Thromboplastin Ratio 1.0 Anion Gap 13.0 mmol/L (3-11) Est Creatinine Clear Calc Drug Dose 6.3 ml/min Estimated GFR () 3.7 Estimated GFR (Non- 3.2 BUN/Creatinine Ratio 7.9 (10-20) Calcium Level 8.2 mg/dl (8.5-10.1) Total Bilirubin 0.8 mg/dl (0.2-1) Aspartate Amino Transf (AST/SGOT) 14 U/L (15-37) Alanine Aminotransferase (ALT/SGPT) 12 U/L (12-78) Alkaline Phosphatase 84 U/L (45-117) Total Creatine Kinase 54 U/L (39-308) Creatine Kinase MB 1.9 ng/ml (0.5-3.6) Creatine Kinase MB Ratio 3.5 (0-3.0) Troponin I 0.134 ng/ml (0-0.045) Total Protein 5.3 gm/dl (6.4-8.2) Albumin 2.1 gm/dl (3.4-5.0) Globulin 3.2 gm/dl (2.5-4.0) Albumin/Globulin Ratio 0.7 (0.9-2) CBC, chem panel, CK/CK-MB, and troponin were obtained. Patient is significant anemic with an H&H of 6.8 and 20.9. Troponin is elevated at 0.134, but this is chronic. It was higher than this 3 days ago when he was admitted. BUN and creatinine are elevated consistent with his previous labs. Medications Administered Medications (Trade) Dose Ordered Sig/Aleksandra Route Start Time Stop Time Status Last Admin Dose Admin Famotidine (Pepcid 20mg Iv Push) 20 mg ONE STAT IV 09/17/17 07:57 09/17/17 08:00 DC 09/17/17 08:30 20 MG Pepcid 20 mg IV, 1 unit packed RBCs transfused. ED Course Patient was educated regarding today's findings. Conservative care measures were discussed. IV was established. Labs were obtained. He was found to be significantly anemic again. He dropped 2 points in essentially 2 days. He does appear somewhat dry. Hemoccult was performed and was positive. Black stools were present. Patient was typed and crossed for 4 units packed RBCs. I did start transfusion of 1 unit while in the ED. I did speak with Dr. Kerr from the hospitalist service and they will admit the patient for further workup. Patient remained stable while in the ED. Patient was seen in conjunction with Dr. Corrigan, who also evaluated the patient and concurred with today's diagnosis and treatment plan. Medical Decision Possibility of upper and lower GI bleed were strongly considered. Dehydration, electrolyte abnormality, and cardiac source were considered. Impression Primary Impression: Dizziness Additional Impression: Anemia Departure Information Dispostion Admitted as an inpatient Condition FAIR Referrals Flakito Martinez M.D. (PCP) Forms HOME CARE DOCUMENTATION FORM, IMPORTANT VISIT INFORMATION Patient Instructions My [facility] Problem Qualifiers Additional Impression: Anemia Anemia type: due to chronic kidney disease Chronic kidney disease stage: on chronic dialysis Qualified Codes: N18.6 - End stage renal disease; D63.1 - Anemia in chronic kidney disease; Z99.2 - Dependence on renal dialysis
--- NOTE | 2017-09-17 18:33 | HISTORY & PHYSICAL EXAMINATION ---
DATE OF ADMISSION: 09/17/2017 CHIEF COMPLAINT: Symptomatic anemia. HISTORY OF PRESENT ILLNESS: The patient is a 62-year-old male known to me from care earlier this week. He had been in the hospital with symptomatic anemia, was transfused, stable and wanted to go home, was able to go home. He had close PCP followup set up. Unfortunately, he re-presented to the ER, feeling weak and fatigued like he was anemic again. He was feeling dizzy and lightheaded. He believes that the aspirin that he was on in regards to his coronary disease is culprit noting that while he would be surprised that a low dose aspirin would cause this, he also notes his body and notes that essentially recently any blood thinner that he has been on has had rather significant consequences and so he in the end believes probably the aspirin was the culprit. I see him then after his transfusions are complete. He feels good. He feels at his baseline. He really wants to go home. He has no significant bleeding. He has no shortness of breath. His symptoms have resolved. He has no abdominal pain and certainly it seems reasonable to discharge him to home. REVIEW OF SYSTEMS: Otherwise negative, except for as above. 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 PAST SURGICAL HISTORY: Thrombectomy for previously ischemic foot, mitral valve replacement with bioprosthetic valve not quite a month ago, 1-vessel CABG not quite a month ago. SOCIAL HISTORY: He is never a smoker. He is and lives with his . 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 FAMILY HISTORY: Includes diabetes, CHF and hypertension in his father. ALLERGIES: No known drug allergies. MEDICATIONS: Amiodarone 200 mg daily, aspirin 81 mg daily, B complex with folate daily, calcium carbonate 500 mg as directed p.r.n., Sensipar 30 mg daily, Benadryl 75 mg at bedtime p.r.n., Flonase 2 sprays daily p.r.n., proctosol b.i.d. p.r.n., hydrocortisone externally b.i.d. p.r.n., Mag-Ox 500 mg b.i.d. 2 times a week as needed for low mag, sodium bicarbonate 1300 mg daily, Velphoro 500 mg with snacks and 1000 mg at meals, Spiriva 1 puff daily. PHYSICAL EXAMINATION: VITAL SIGNS: Temperature 36.7, pulse 94, respiratory rate 16, blood pressure 139/76, 100% listed as 2 liters is 98% on room air. GENERAL: He is awake, alert, oriented x3, pleasant, in no acute distress. HEENT: Normocephalic, atraumatic. Mucous membranes are moist. CARDIOVASCULAR: Regular. No rubs, murmurs, or gallops. LUNGS: Clear to auscultation bilaterally. No rales, rhonchi, or wheezes with good effort. ABDOMEN: Soft, nondistended, nontender, no masses or organomegaly. EXTREMITIES: Without cyanosis, clubbing or edema. No calf tenderness. SKIN: Shows no rashes. No pallor or icterus. NEUROLOGIC: Shows cranial nerves II-XII to be grossly intact. Gross motor and sensory are intact. MUSCULOSKELETAL: Yields no gross lesions. SKIN: Shows no rashes, no pallor or icterus. MENTAL STATUS: Shows good recent and remote recall. Normal mood and affect. Good judgment and insight. LABS AND DIAGNOSTICS: CBC shows a white count of 11.65, hemoglobin 6.8 was about 8.1 at discharge, platelets 183. Complete metabolic panel with sodium 137, potassium 3.9, chloride 99, CO2 25, BUN 114, creatinine 14.5, calcium 8.2, glucose 132. Total bili 0.8, AST 14, ALT 12, alkaline phosphatase 84. CK total of 54 with an MB of 1.9. Troponin 0.134, which is less than it was at last check earlier this week, total protein 5.3, albumin 2.1, PT of 11, PTT of 25.6. CT abdomen and pelvis showing a dialysis catheter in the low pelvis, mild minimal ascites versus dialysate, mild nonobstructive ileus probable early cirrhotic change, chronic atrophy and calcifications of kidneys bilaterally and an inhomogeneous appearing spleen, possibly representing an old focal infarct. ASSESSMENT AND PLAN: 1. Symptomatic anemia, he appears to have chronic anemia related to chronic gastrointestinal blood loss and his end-stage renal disease. He had been transfused earlier this week, his hemoglobin is down again without any evidence of blood loss. He is also not showing any signs or symptoms of hemolysis with fever or aches or anything to suggest an immune reaction nor does he appear to be jaundiced and his bilirubin was only 0.8 probably some of this is gastrointestinal losses related to the aspirin some of it probably is simple lab variation, but at any rate, he is not going to make new red cells in an adequate rate and certainly transfusion is warranted. Given his end-stage renal disease, his chronic gastrointestinal blood loss and the overall severity of his anemia, 2 units were given. He was followed up after the 2 units were given and he felt great and really want to go home. Given that he had no acuity of blood loss, no hemolysis and no other indication to need to keep him in the hospital, I did feel it very reasonable to comply with his request to be discharged home to follow up with his PCP next week. Continue his newly prescribed erythropoietin analog via his hotel sales manager and have a CBC drawn early in the week. His aspirin will be discontinued. 2. Coronary artery disease status post 1-vessel CABG, unfortunately the risks of his aspirin appear to be outlying the benefits at this point in time. The aspirin needs to be discontinued. This was very similar with his Coumadin in regards to his atrial fibrillation. 3. Protein malnutrition, this is probably chronic, ongoing outpatient followup. 4. Cirrhotic appearing liver. Outpatient followup. 5. Elevated troponin is chronic, probably really more function of his end-stage renal disease on peritoneal dialysis than anything truly cardiac and it is lower than it was previous and he shows no cardiac symptoms. 6. Deep venous thrombosis prophylaxis. Pharmacologic is contraindicated due to his bleeding as well as it was not really indicated due to his short stay. 7. End-stage renal disease on peritoneal dialysis, ongoing peritoneal dialysis, his hotel sales manager has been talking to him about hemodialysis but so far the patient has been resistant. 8. Probably uremic neuropathy, see last discharge summary was requesting outpatient neurology followup and his PCP noted he would make a referral. 9. Tremors, see last discharge summary. This is probably benign tremors as well as a degree of uremic tremors given the difficulty maintaining him on peritoneal dialysis. Again this was discussed with his primary hotel sales manager who will continue to follow this as an outpatient. 10. Ileus appearance on CT. There was absolutely nothing clinical to corroborate this. 11. Hypertension. Home meds. 12. Atrial fibrillation, home meds. Obviously the Coumadin has recently been discontinued because the risks outweigh the benefits. 13. Mitral valve disease. He is status post mitral valve replacement recently because it appears to be stable in this regard. DISPOSITION: He is stable to be discharged home. Diet: Renal low sodium. Pain, none. Medications see attached med reconciliation instructions. Follow up with his PCP next week. Have a CBC drawn earlier in the week. Continue with his peritoneal dialysis and his erythropoietin analog as per his hotel sales manager and he is discharged home in stable condition.
[2017-09-17] MEDS ORDERED: AMIODARONE 200 MG TAB PO SCH (21:00)
[2017-09-18] MEDS ORDERED: TIOTROPIUM BROMIDE 5 PUFF/90 MCG INH INH SCH (08:00)
[2017-09-18] MEDS ORDERED: SODIUM BICARBONATE 650 MG TAB PO SCH (08:00)
[2017-09-18] MEDS ORDERED: NEPHROCAPS PO SCH (08:00)
== END 2017-09-17 19:07 | disposition home or self-care (01) ==
LOC: EDBD 06:34 → C.EDB 06:35 → C.MS4W 09:06 → ENRESERV 09:47
PROVIDERS: ADMIT Family Medicine; ATTEND Family Medicine
DX: D63.1 Anemia in chronic kidney disease (principal); N18.6 End stage renal disease; I25.10 Atherosclerotic heart disease of native coronary artery without angina pectoris; I48.0 Paroxysmal atrial fibrillation; Z99.2 Dependence on renal dialysis; Z83.3 Family history of diabetes mellitus; Z82.49 Family history of ischemic heart disease and other diseases of the circulatory system

== ENCOUNTER → 2017-12-15 | Outpatient (CLI) | payer OTHER ==
[~2017-12-15] MED LIST changes: -ASPI81TA28 PO
== END | disposition home or self-care (01) ==
LOC: C.PATHSPEC 13:43
PROVIDERS: ATTEND Orthopaedic Surgery
DX: E83.59 Other disorders of calcium metabolism (principal)

== ENCOUNTER → 2017-12-22 | Outpatient (CLI) | payer OTHER ==
--- NOTE | 2017-12-22 13:43 | DIAGNOSTIC IMAGING REPORT ---
L FOOT MIN 3 VIEWS ROUTINE CLINICAL HISTORY: R52 [id number] pain COMPARISON: None. DISCUSSION: Moderate generalized degenerative change. Generalized osteopenia. Heel spur. Soft tissue vascular calcifications. No bony erosive process. No acute fracture. There is no evidence for soft tissue swelling. IMPRESSION: Generalized degenerative change. Osteopenia. The above report was generated using voice recognition software. It may contain grammatical, syntax or spelling errors. Electronically signed by: Aj Ojeda M.D. 12/22/2017 1:42 PM Dictated Date/Time: 12/22/2017 1:40 PM
--- NOTE | 2017-12-22 13:44 | DIAGNOSTIC IMAGING REPORT ---
L FOREARM 2 VIEWS ROUTINE CLINICAL HISTORY: Left forearm pain COMPARISON: None. DISCUSSION: There are no fractures present. There are vascular calcifications present. There are no erosive or destructive changes. A lucency within the distal radial diaphysis, is felt to represent focal osteoporotic change. There is mild osteopenia. IMPRESSION: 1. No fractures identified 2. Mild osteopenia Electronically signed by: Jorge Osorio M.D. 12/22/2017 1:42 PM Dictated Date/Time: 12/22/2017 1:41 PM
--- NOTE | 2017-12-22 13:47 | DIAGNOSTIC IMAGING REPORT ---
RIGHT FOREARM 2 VIEWS HISTORY: Right forearm pain. COMPARISON: None. FINDINGS: There is no fracture or dislocation. No elbow effusion. Mild soft tissue swelling within the distal forearm/wrist. No radiopaque foreign bodies. Vascular calcifications are noted. IMPRESSION: No fractures. Electronically signed by: Lei Monique M.D. 12/22/2017 1:46 PM Dictated Date/Time: 12/22/2017 1:39 PM
== END | disposition home or self-care (01) ==
LOC: C.RAD 12:56
PROVIDERS: ATTEND Physician Assistant
DX: R52 Pain, unspecified (principal); M19.072 Primary osteoarthritis, left ankle and foot; M85.872 Other specified disorders of bone density and structure, left ankle and foot

== ENCOUNTER 2017-12-31 22:05 | Inpatient (IN) | payer OTHER ==
[~2017-12-31] VITALS: Ht 175.3 cm; Wt 95.8 kg
[2017-12-31] MEDS ORDERED: PROCHLORPERAZINE 5 MG/ML 2 ML VIAL IV STA (22:18)
[2017-12-31 22:53] LABS: PTT PATIENT 23.4 SECONDS (21.0-31.0)
[2017-12-31 22:58] LABS: HEMATOCRIT 16.7 % (42-52); HEMOGLOBIN 5.3 g/dL (14.0-18.0); MEAN CELL VOLUME 96.5 fL (80-100); MEAN CORPUSCULAR HEMOGLOBIN 30.6 pg (25-34); MEAN CORPUSCULAR HGB CONC 31.7 g/dl (32-36); MEAN PLATELET VOLUME 10.2 fL (7.4-10.4); NUCLEATED RED BLOOD CELL ABS 0.09 K/uL (0-0); PLATELET COUNT 296 K/uL (130-400); RED CELL DISTRIBUTION WIDTH CV 19.5 % (11.5-14.5); WHITE BLOOD COUNT 9.73 K/uL (4.8-10.8)
[2017-12-31 23:04] LABS: ISTAT CREATININE 14.6 mg/dl (0.6-1.3); ISTAT IONIZED CALCIUM 1.03 mmol/l (1.12-1.32); ISTAT POTASSIUM 5.8 mEq/L (3.3-5.0)
[2017-12-31] MEDS ORDERED: AMLO-110 PO (23:04)
[2017-12-31] MEDS ORDERED: ALPR-385 PO (23:04)
[2017-12-31] MEDS ORDERED: FERR1TAB68 PO (23:04)
[2017-12-31] MEDS ORDERED: HYDR100T12 PO (23:04)
[2017-12-31] MEDS ORDERED: [UNRECOGNIZED DRUG - CODE] SQ (23:04)
[2017-12-31] MEDS ORDERED: CARV12.52 PO (23:04)
--- NOTE | 2017-12-31 23:08 | DIAGNOSTIC IMAGING REPORT ---
CHEST ONE VIEW PORTABLE CLINICAL HISTORY: weak dyspnea COMPARISON STUDY: 09/14/2017 FINDINGS: Moderate stable cardia megaly. Prior median sternotomy and valve replacement. Diaphragms smooth. Lungs are clear. Chronic pleural reactive change left lateral chest. IMPRESSION: Chronic and postoperative change. Mild stable cardiomegaly. No acute process. The above report was generated using voice recognition software. It may contain grammatical, syntax or spelling errors. Electronically signed by: Aj Ojeda M.D. 12/31/2017 11:07 PM Dictated Date/Time: 12/31/2017 11:06 PM
[2017-12-31 23:11] LABS: BASO % 0.3 %; BASO ABS # 0.03 K/uL (0-0.2); EOS % 1.2 %; EOS ABS # 0.12 K/uL (0-0.5); IG# 0.38 K/uL (0.00-0.02); LYMPH % 26.6 %; LYMPH ABS # 2.59 K/uL (1.2-3.4); MONO % 6.9 %; MONO ABS # 0.67 K/uL (0.11-0.59); NEUT % 61.1 %; NEUT ABS # 5.94 K/uL (1.4-6.5)
[2017-12-31 23:15] LABS: ALBUMIN 2.7 gm/dl (3.4-5.0); CALCIUM 8.3 mg/dl (8.5-10.1); CREATININE 14.2 mg/dl (0.60-1.40); TOTAL PROTEIN 5.9 gm/dl (6.4-8.2)
[2018-01-01] VITALS (36 sets, daily range): BP systolic 105–175; BP diastolic 51–95; PULSE 71–103; TEMP 36.3–37.1; O2SAT 91–100; Ht 175.3 cm; Wt 95.8 kg
[2018-01-01] MEDS ORDERED: CALCIUM CARBONATE 500 MG CHEWABLE PO PRN (00:15)
[2018-01-01] MEDS ORDERED: FLUTICASONE PROPIONATE NA SPR 16 GM BTL NAE PRN (00:15)
[2018-01-01] MEDS ORDERED: CARVEDILOL 12.5 MG TAB PO PRN (00:15)
[2018-01-01] MEDS ORDERED: CALCIUM GLUCONATE 10% 10 ML VIAL IV STA (00:27)
[2018-01-01] MEDS ORDERED: DEXTROSE 50% 50 ML SYR IV ONE (00:45)
[2018-01-01] MEDS ORDERED: NovoLIN-R INSULIN PER UNIT CHARGE IV STA (00:45)
--- NOTE | 2018-01-01 00:59 | History and Physical ---
History & Physical Date & Time of Service: Jan 01, 2018 at 00:12 Chief Complaint: Weakness, Cold, Diareha, Sharp Ab Pain Primary Care Physician: Flakito Martinez M.D. History of Present Illness Source: patient, hospital records 62 y/o M with a complex medical history that includes ESRD - peritoneal dialysis , DM, HTN, chronic anemia, PAF, CAD. 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 The pt has had recurrent anemia requiring transfusions. This is thought to be related to his renal disease and possibly an element of GI blood loss. He presents with exertional SOB, muscle cramps, lightheadedness and pallor. A hemoglobin was obtained and returned at 5.7. Additionally, he had not yet commenced his peritoneal dialysis this mario and an initial K was 6.0. There are peaked T waves on an EKG. He denies CP, N/V abdominal pain, fevers or grossly visible GI blood loss. Past Medical/Surgical History 1) L femoral vein embolic occlusion and LLE ischemia 08/21 2) Calcific (noninfectious) vegetations of mitral valve - required MVR - received bioprosthesis 08/24/17 3) CAD - NSTEMI and type II NSTEMI due to anemia - 1 vessel CABG 08/24/17 4) ESRD - peritoneal dialysis - pt advised on hemodialysis due to frequent electrolyte abnormalities which he has declined thus far 5) Gout 6) DM - diet-controlled 7) HTN 8) GI bleed while on Coumadin - no source was identified 9) Anemia of chronic disease - element of GI blood loss suspected - may have been due to Coumadin 10) Paroxysmal atrial fibrillation 11) Spontaneous hemothorax - on Coumadin 12) COPD Surgical history: 1) MVR - bioprosthesis 08/21 2) CABG - 1 VESSEL 08/21 3) L femoral thrombectomy 08/21 Family History Diabetes mellitus FATHER FH: CHF (congestive heart failure) FATHER Hypertension FATHER Social History 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 Smoking Status: Former Smoker Drug Use: none Marital Status: Housing status: lives with family, lives with significant other Occupational Status: employed Allergies Coded Allergies: No Known Allergies (Unverified , 12/31/17) Home Medications Scheduled Alprazolam (Xanax), 1 MG PO HS Amiodarone Hcl (Cordarone), 200 MG PO QPM Amlodipine (Norvasc), 5 MG PO UD Carvedilol (Coreg), 12.5 MG PO UD Cinacalcet (Sensipar), 30 MG PO QPM Ferric Citrate (Auryxia), 420 MG PO TID Hydralazine Hcl (Apresoline), 100 MG PO UD Methoxy Polyethylene Glycol-Ep (Mircera), 1 DOSE SQ UD Sodium Bicarbonate (Sodium Bicarbonate), 1,300 MG PO DAILY Tiotropium [place] (Spiriva Handihaler), 1 CAP INH DAILY Scheduled PRN Calcium Carbonate (Tums), 500 MG PO UD PRN for Indigestion Fluticasone Propionate (Nasal) (Flonase Allergy Relief), 2 SPRAYS RAFAEL DAILY PRN for Allergy Symptoms Hydrocortisone (Proctosol Hc), 1 APPLN EXT BID PRN for Hemorrhoids Hydrocortisone (Topical) (Hydrocortisone), 1 APPLN EXT BID PRN for itching Review of Systems Constitutional: + weakness, + fatigue, No fever, No chills, No sweats Eyes: No worsening of vision ENT: No hearing loss, No unusual epistaxis, No nasal symptoms Respiratory: + dyspnea on exertion, No cough, No sputum, No wheezing Cardiovascular: No chest pain, No orthopnea, No PND Abdomen: No pain, No nausea, No vomiting Musculoskeletal: + muscle pain, No joint pain Neurologic: + weakness, No memory loss, No paralysis Psychiatric: No depression symptoms Endocrine: + fatigue Hematologic / Lymphatic: No abnormal bleeding/bruising Integumentary: No rash Allergic / Immunologic: No environmental allergies Physical Exam Vital Signs Date Time Temp Pulse Resp B/P (MAP) Pulse Ox O2 Delivery O2 Flow Rate FiO2 01/01/18 00:08 37.1 97 18 140/77 97 12/31/17 23:21 99 Room Air 12/31/17 23:20 99 Room Air 12/31/17 23:16 96 20 118/67 99 Room Air 98 108/58 99 102/64 12/31/17 23:00 90 12/31/17 22:08 36.6 96 18 129/75 97 Room Air General Appearance: + pertinent finding (Overweight, middle-aged male in no distress) Head: normocephalic Eyes: normal inspection ENT: normal ENT inspection, pharynx normal Neck: supple, no JVD Respiratory/Chest: chest non-tender, lungs clear Cardiovascular: regular rate, rhythm, no edema, no gallop Abdomen/GI: normal bowel sounds, non tender, soft, + pertinent finding (guaiac (+) reported by ER - chronic) Back: normal inspection, no CVA tenderness Extremities/Musculoskelatal: normal inspection, no calf tenderness 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, no motor/sensory deficits, alert, oriented x 3 Skin: + pallor Diagnostics Laboratory Results Results Past 24 Hours Test 12/31/17 22:29 12/31/17 22:38 12/31/17 22:50 Range/Units White Blood Count 9.73 4.8-10.8 K/uL Red Blood Count 1.73 4.7-6.1 M/uL Hemoglobin 5.3 14.0-18.0 g/dL Hematocrit 16.7 42-52 % Mean Corpuscular Volume 96.5 80-100 fL Mean Corpuscular Hemoglobin 30.6 25-34 pg Mean Corpuscular Hemoglobin Concent 31.7 32-36 g/dl Platelet Count 296 130-400 K/uL Mean Platelet Volume 10.2 7.4-10.4 fL Neutrophils (%) (Auto) 61.1 % Lymphocytes (%) (Auto) 26.6 % Monocytes (%) (Auto) 6.9 % Eosinophils (%) (Auto) 1.2 % Basophils (%) (Auto) 0.3 % Neutrophils # (Auto) 5.94 1.4-6.5 K/uL Lymphocytes # (Auto) 2.59 1.2-3.4 K/uL Monocytes # (Auto) 0.67 0.11-0.59 K/uL Eosinophils # (Auto) 0.12 0-0.5 K/uL Basophils # (Auto) 0.03 0-0.2 K/uL RDW Standard Deviation 66.0 36.4-46.3 fL RDW Coefficient of Variation 19.5 11.5-14.5 % Immature Granulocyte % (Auto) 3.9 % Immature Granulocyte # (Auto) 0.38 0.00-0.02 K/uL Nucleated RBC Absolute Count (auto) 0.09 0-0 K/uL Nucleated Red Blood Cells % 0.9 % Anisocytosis PRESENT Prothrombin Time 10.8 9.0-12.0 SECONDS Prothromb Time International Ratio 1.0 0.9-1.1 Activated Partial Thromboplast Time 23.4 21.0-31.0 SECONDS Partial Thromboplastin Ratio 0.9 Sodium Level 135 136-145 mmol/L Potassium Level 6.0 3.5-5.1 mmol/L Chloride Level 95 98-107 mmol/L Carbon Dioxide Level 20 21-32 mmol/L Anion Gap 19.0 21.0 16-25 mmol/L Blood Urea Nitrogen 136 7-18 mg/dl Creatinine 14.20 0.60-1.40 mg/dl Est Creatinine Clear Calc Drug Dose 6.2 ml/min Estimated GFR () 3.8 Estimated GFR (Non- 3.2 BUN/Creatinine Ratio 9.5 10-20 Random Glucose 76 70-99 mg/dl Calcium Level 8.3 8.5-10.1 mg/dl Magnesium Level 2.5 1.8-2.4 mg/dl Total Bilirubin 0.3 0.2-1 mg/dl Direct Bilirubin 0.2 0-0.2 mg/dl Aspartate Amino Transf (AST/SGOT) 29 15-37 U/L Alanine Aminotransferase (ALT/SGPT) 18 12-78 U/L Alkaline Phosphatase 65 45-117 U/L Total Creatine Kinase 169 39-308 U/L Troponin I 0.024 0-0.045 ng/ml Total Protein 5.9 6.4-8.2 gm/dl Albumin 2.7 3.4-5.0 gm/dl Thyroid Stimulating Hormone (TSH) 2.870 0.300-4.500 uIu/ml Bedside Troponin I < 0.030 0-0.045 ng/ml Bedside Hemoglobin 5.1 14.0-18.0 g/dl Bedside Hematocrit 15 42-52 % Bedside Sodium 132 135-144 mEq/L Bedside Potassium 5.8 3.3-5.0 mEq/L Bedside Chloride 96 101-112 mEq/L Bedside Total CO2 21 24-31 mEq/l Bedside Blood Urea Nitrogen 136 7-18 mg/dl Bedside Creatinine 14.6 0.6-1.3 mg/dl Bedside Glucose (other) 72 70-99 mg/dl Bedside Ionized Calcium (Marilin) 1.03 1.12-1.32 mmol/l Diagnostic Radiology CT abdomen: no acute findings EKG Sinus, peaked T waves as compared to previous Impression Assessment and Plan 62 y/o M with a complex medical history that includes ESRD - peritoneal dialysis , DM, HTN, chronic anemia, PAF, CAD. 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 The pt has had recurrent anemia requiring transfusions. This is thought to be related to his renal disease and possibly an element of GI blood loss. He presents with exertional SOB, muscle cramps, lightheadedness and pallor. A hemoglobin was obtained and returned at 5.7. Additionally, he had not yet commenced his peritoneal dialysis this mario and an initial K was 6.0. There are peaked T waves on an EKG. He denies CP, N/V abdominal pain, fevers or grossly visible GI blood loss. 1) Anemia - pt will be transfused 3 units presently. We will trend his Hb. Additional workup may not provide benefit in the immediate term as this is a recurrent issue and he has the necessary specialist follow-up in the outpt setting. 2) ESRD - hyperK - nephrology consulted and will supply orders to commence PD. He refused treatment with Calcium Gluc for hyperkalemia as he states it stops up his arteries. D50 and Insulin provided. Will monitor on telemetry. 3) HTN - he is on a schedule of PRN Coreg, Hydralazine and Norvasc which have been provided. 4) DM - placed on a SS - does not tolerate 5) CAD - no evidence of ACS - does not tolerate antiplatelet agent or anticoagualnts due to chronic blood loss 6) PAF - cont Amiodarone Full code - SCDs Total time for this admit including review of labs, meds, imaging, records - discussion with pt and ER attending Resuscitation Status VTE Prophylaxis Will order VTE Prophylaxis: Yes
[2018-01-01] MEDS ORDERED: ACETAMINOPHEN 325 MG TAB PO PRN (01:00)
[2018-01-01] MEDS ORDERED: ONDANSETRON INJ 2 MG/ML 2 ML VIAL IV PRN (01:00)
[2018-01-01] MEDS ORDERED: MoRPHine SULFATE 2 MG/ML CARP IV PRN (01:00)
--- NOTE | 2018-01-01 01:17 | Nephrology Consultation ---
Nephrology Consultation Date & Providers Date of Consultation: Jan 01, 2018. Primary Care Provider: Flakito Martinez M.D. Referring Provider: Reason for Consultation ESRD on NCCPD therapy History of Present Illness Mr. Grullon is a 62 year old white male who is seen in the ED this am at the request of Dr. Kolb. Patient requires continuation of peritoneal dialysis during his hospitalization. Medical records in the EMR were reviewed and are summarized as follows: Mr. Grullon has ESRD on NCCPD, HTN, ASCVD and paroxysmal atrial fibrillation (previous anticoagulation was complicated by L hemothorax), acute LLE ischemia requiring emergency arterial thrombectomy, bioprosthetic MVR (calcific vegetation) and CABG x 1, and recurrent anemia. Mr. Grullon's last colonoscopy was 12/19 - benign polyp in transverse colon removed, large external hemorrhoid. He was admitted to [facility] 08/21 for evaluation of anemia. Hgb stabilized following blood transfusion and endoscopy was not required at that time. Mr. Grullon reports that over the last two weeks he has had progressive ESPINO. He last had blood work completed 12/15/17 and his Hgb was 9.8. He received Mircera injection at the home dialysis office. Mr. Grullon has been experiencing LUQ abdominal discomfort. He has been using Pepto-Bismol. He notes that his stool has been black due to the Pepto-Bismol and his phosphate binder Auryxia. Mr. Grullon denies hemoptysis, hematemesis or hematochezia. He notes that there have been no complications w/ his NCCPD regimen. He denies cloudy PD fluid. Past Medical/Surgical History Medical: # ESRD on NCCPD (5 exchanges/night, 2.9L fill vol, 2.5% delflex, 75 min dwell, LBO 2L w/ 2 hr dwell. EDW 90 kg / 198 lbs) # HTN # ASCVD # Bioprosthetic MVR # Paroxysmal atrial fibrillation # Anemia # L femoral artery thrombosis 08/21 Surgical: # PD catheter insertion # L femoral artery thrombectomy # Bioprosthetic M[place] [facility] [place] Allergies Coded Allergies: No Known Allergies (Unverified , 12/31/17) Inpatient Medications Current Inpatient Medications Medications (Trade) Dose Ordered Sig/Aleksandra Route Start Time Stop Time Status Last Admin Dose Admin Alprazolam (Xanax Tab) 1 mg HS PO 01/01/18 21:00 01/31/18 20:59 UNV Amiodarone HCl (Cordarone Tab) 200 mg QPM PO 01/01/18 21:00 01/31/18 20:59 UNV Amlodipine Besylate (Norvasc Tab) 5 mg DAILY PO 01/01/18 09:00 01/31/18 08:59 UNV Calcium Carbonate (Tums Chew Tab) 500 mg UD PRN PO 01/01/18 00:15 01/31/18 00:14 UNV Carvedilol (Coreg Tab) 12.5 mg HS PRN PO 01/01/18 00:15 01/31/18 00:14 UNV Fluticasone Propionate (Flonase Nasal [place]) 2 sprays DAILY PRN RAFAEL 01/01/18 00:15 01/31/18 00:14 UNV Hydralazine HCl (Apresoline Tab) 100 mg DAILY PRN PO 01/01/18 00:15 01/31/18 00:14 UNV Sodium Bicarbonate (Sodium Bicarbonate Tab) 1,300 mg DAILY PO 01/01/18 09:00 01/31/18 08:59 UNV Tiotropium [place] (Spiriva Handihaler Inhaler) 30 puff DAILY INH 01/01/18 09:00 01/31/18 08:59 UNV Non-Formulary Medication (Cinacalcet (Sensipar)) 30 mg QPM PO 01/01/18 21:00 01/31/18 20:59 UNV Non-Formulary Medication (Ferric Citrate (Auryxia)) 420 mg TID PO 01/01/18 09:00 01/31/18 08:59 UNV Non-Formulary Medication (Methoxy Polyethylene Glycol-Ep (Mircera)) 1 dose UD SQ 01/01/18 00:15 01/31/18 00:14 UNV Acetaminophen (Tylenol Tab) 650 mg Q4H PRN PO 01/01/18 01:00 01/31/18 00:59 UNV Ondansetron HCl (Zofran Inj) 4 mg Q6H PRN IV 01/01/18 01:00 01/31/18 00:59 UNV Morphine Sulfate (MoRPHine SULFATE INJ) 2 mg Q30M PRN IV 01/01/18 01:00 01/15/18 00:59 UNV Insulin Aspart (novoLOG ASPART) SLIDING SCALE G... 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 Review of Systems Constitutional: No fever Respiratory: + dyspnea on exertion, No cough Cardiovascular: No chest pain Abdomen: + pain (mild LUQ abdominal pain) Endocrine: + fatigue Integumentary: No rash A complete review of systems was performed. Pertinent positives are noted above. All other systems are negative. Physical Exam Date Time Temp Pulse Resp B/P (MAP) Pulse Ox O2 Delivery O2 Flow Rate FiO2 01/01/18 00:23 37.0 97 16 136/51 98 01/01/18 00:08 37.1 97 18 140/77 97 12/31/17 23:21 99 Room Air 12/31/17 23:20 99 Room Air 12/31/17 23:16 96 20 118/67 99 Room Air 98 108/58 99 102/64 12/31/17 23:00 90 12/31/17 22:08 36.6 96 18 129/75 97 Room Air General Appearance: no apparent distress Head: normocephalic, atraumatic Eyes: PERRL, EOMI Neck: no adenopathy Respiratory/Chest: lungs clear, no respiratory distress Cardiovascular: regular rate, rhythm Abdomen/GI: normal bowel sounds, non tender, soft, + pertinent finding (PD exit site clean & dry without erythema or drainage) Extremities/Musculoskelatal: no pedal edema, + pertinent finding (no AVF) Neurologic/Psych: alert, oriented x 3 Laboratory Results Last 24 Hours Test 12/31/17 22:29 12/31/17 22:38 12/31/17 22:50 White Blood Count 9.73 K/uL Red Blood Count 1.73 M/uL Hemoglobin 5.3 g/dL Hematocrit 16.7 % Mean Corpuscular Volume 96.5 fL Mean Corpuscular Hemoglobin 30.6 pg Mean Corpuscular Hemoglobin Concent 31.7 g/dl Platelet Count 296 K/uL Mean Platelet Volume 10.2 fL Neutrophils (%) (Auto) 61.1 % Lymphocytes (%) (Auto) 26.6 % Monocytes (%) (Auto) 6.9 % Eosinophils (%) (Auto) 1.2 % Basophils (%) (Auto) 0.3 % Neutrophils # (Auto) 5.94 K/uL Lymphocytes # (Auto) 2.59 K/uL Monocytes # (Auto) 0.67 K/uL Eosinophils # (Auto) 0.12 K/uL Basophils # (Auto) 0.03 K/uL RDW Standard Deviation 66.0 fL RDW Coefficient of Variation 19.5 % Immature Granulocyte % (Auto) 3.9 % Immature Granulocyte # (Auto) 0.38 K/uL Nucleated RBC Absolute Count (auto) 0.09 K/uL Nucleated Red Blood Cells % 0.9 % Anisocytosis PRESENT Prothrombin Time 10.8 SECONDS Prothromb Time International Ratio 1.0 Activated Partial Thromboplast Time 23.4 SECONDS Partial Thromboplastin Ratio 0.9 Sodium Level 135 mmol/L Potassium Level 6.0 mmol/L Chloride Level 95 mmol/L Carbon Dioxide Level 20 mmol/L Anion Gap 19.0 mmol/L 21.0 mmol/L Blood Urea Nitrogen 136 mg/dl Creatinine 14.20 mg/dl Est Creatinine Clear Calc Drug Dose 6.2 ml/min Estimated GFR () 3.8 Estimated GFR (Non- 3.2 BUN/Creatinine Ratio 9.5 Random Glucose 76 mg/dl Calcium Level 8.3 mg/dl Magnesium Level 2.5 mg/dl Total Bilirubin 0.3 mg/dl Direct Bilirubin 0.2 mg/dl Aspartate Amino Transf (AST/SGOT) 29 U/L Alanine Aminotransferase (ALT/SGPT) 18 U/L Alkaline Phosphatase 65 U/L Total Creatine Kinase 169 U/L Troponin I 0.024 ng/ml Total Protein 5.9 gm/dl Albumin 2.7 gm/dl Thyroid Stimulating Hormone (TSH) 2.870 uIu/ml Bedside Troponin I < 0.030 ng/ml Bedside Hemoglobin 5.1 g/dl Bedside Hematocrit 15 % Bedside Sodium 132 mEq/L Bedside Potassium 5.8 mEq/L Bedside Chloride 96 mEq/L Bedside Total CO2 21 mEq/l Bedside Blood Urea Nitrogen 136 mg/dl Bedside Creatinine 14.6 mg/dl Bedside Glucose (other) 72 mg/dl Bedside Ionized Calcium (Marilin) 1.03 mmol/l Impression (1) Anemia (2) ESRD (end stage renal disease) (3) History of mitral valve replacement with bioprosthetic valve (4) CAD (coronary artery disease) Mr. Grullon is being admitted for evaluation of anemia and hyperkalemia in the setting of ESRD. His Hgb has dropped ~ 4 g in 2 weeks. Clinically suspect GI blood loss. He denies overt blood loss but stool is black due to use of Pepto- Bismol and Auryxia. Iron studies at home dialysis unit 12/21 revealed iron saturation 32% w/ ferritin 689. Patient's last endoscopy procedure was in . Recommendations END STAGE RENAL DISEASE: -- Will provide NCCPD therapy this morning. 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 Patient declined calcium therapy. -- Will provide NCCPD therapy this morning ANEMIA: -- Transfusion as per primary service -- Check FOBT -- Recommend consultation w/ Gastroenterology CKD-BMD: -- Has been on Sensipar 30 mg daily as outpatient. Resume prior to discharge.
[2018-01-01] MEDS ORDERED: GLUCOSE 10 TABS/TUBE PO PRN (02:45)
[2018-01-01] MEDS ORDERED: GLUCAGON FOR INJ 1 MG VIAL SQ PRN (02:45)
[2018-01-01] MEDS ORDERED: GLUCOSE 40% GEL 15 GM TUBE PO PRN (02:45)
[2018-01-01] MEDS ORDERED: DEXTROSE 50% 50 ML SYR IV PRN (02:45)
[2018-01-01] MEDS ORDERED: IV FLUIDS COMPLETED PRN (04:30)
--- NOTE | 2018-01-01 06:13 | EMERGENCY ROOM VISIT NOTE ---
History First contact with patient: 22:13 Chief Complaint: WEAKNESS Stated Complaint: ANEMIA, HYPERKALEMIA History of Present Illness The patient is a 62 year old male who presents to the Emergency Room with complaints of feeling fatigued with abdominal discomfort and occasional nausea and vomiting for the past few days. Patient has a lack of appetite. Patient is peritoneal dialysis and has had no complications with this. Patient states he is a history of anemia and symptoms feel similar. Dr. Martinez offices emergency department nurse and family care doctor. Patient was a mild abdominal discomfort to the 10 to the right side. Nothing makes it better or worse. Patient denies chest pain, fevers, diarrhea, leg pain or swelling, cough, congestion, cold symptoms. He is tolerating p.o. fluids and food. He states he feels as if he is anemic and will need blood transfusion. Review of Systems An 10 system review of systems was completed with positives and pertinent negatives listed in the HPI. Past Medical/Surgical History Medical Problems: (1) Anemia (2) Anemia due to chronic kidney disease (3) Arthralgia (4) CAD (coronary artery disease) (5) Chest pain (6) ESRD (end stage renal disease) (7) GI bleed (8) Hemothorax on left (9) HTN (hypertension) (10) Hyperkalemia (11) Hypertensive urgency (12) Ischemic foot (13) Ischemic rest pain of lower extremity (14) Loculated pleural effusion (15) NSTEMI (non-ST elevated myocardial infarction) (16) Symptomatic anemia Surgical Problems: (1) H/O colonoscopy (2) Heart valve replaced (3) History of dental surgery (4) History of esophagogastroduodenoscopy (EGD) (5) History of mitral valve replacement with bioprosthetic valve (6) Mitral valve replaced (7) Kyle teeth extracted Family History Diabetes mellitus FATHER FH: CHF (congestive heart failure) FATHER Hypertension FATHER Social History Smoking Status: Former Smoker Alcohol Use: occasionally Drug Use: none Marital Status: Housing Status: lives with significant other Occupation Status: employed Current/Historical Medications Scheduled Alprazolam (Xanax), 1 MG PO HS Amiodarone Hcl (Cordarone), 200 MG PO QPM Amlodipine (Norvasc), 5 MG PO UD Carvedilol (Coreg), 12.5 MG PO UD Cinacalcet (Sensipar), 30 MG PO QPM Ferric Citrate (Auryxia), 420 MG PO TID Hydralazine Hcl (Apresoline), 100 MG PO UD Methoxy Polyethylene Glycol-Ep (Mircera), 1 DOSE SQ UD Sodium Bicarbonate (Sodium Bicarbonate), 1,300 MG PO DAILY Tiotropium [place] (Spiriva Handihaler), 1 CAP INH DAILY Scheduled PRN Calcium Carbonate (Tums), 500 MG PO UD PRN for Indigestion Fluticasone Propionate (Nasal) (Flonase Allergy Relief), 2 SPRAYS RAFAEL DAILY PRN for Allergy Symptoms Hydrocortisone (Proctosol Hc), 1 APPLN EXT BID PRN for Hemorrhoids Hydrocortisone (Topical) (Hydrocortisone), 1 APPLN EXT BID PRN for itching Physical Exam Vital Signs Date Time Temp Pulse Resp B/P (MAP) Pulse Ox O2 Delivery O2 Flow Rate FiO2 01/01/18 00:49 36.9 101 18 135/59 99 01/01/18 00:23 37.0 97 16 136/51 98 01/01/18 00:08 37.1 97 18 140/77 97 12/31/17 23:21 99 Room Air 12/31/17 23:20 99 Room Air 12/31/17 23:16 96 20 118/67 99 Room Air 98 108/58 99 102/64 12/31/17 23:00 90 12/31/17 22:08 36.6 96 18 129/75 97 Room Air Physical Exam VITALS: Vitals are noted on the nurse's note and reviewed by myself. Vital signs stable. GENERAL: Pleasant male pale-appearing SKIN: The skin was without rashes, erythema, or bruising. There is no tenting of the skin. Capillary reflex less than 2 seconds. HEAD: Normocephalic atraumatic. EARS: External auditory canals clear, tympanic membranes pearly stinson without erythema or effusion bilaterally. EYES: Pupils equal round and reactive to light and accommodation. Conjunctivae without injection, sclerae without icterus. Extraocular movements intact. NOSE: Patent, turbinates without inflammation or discharge. No sinus tenderness. MOUTH: Mucous membranes moist. Pharynx without erythema or exudate. Uvula midline. Airway patent. Tongue does not deviate. NECK: Supple without nuchal rigidity. No lymphadenopathy. No thyromegaly. Cervical spine is nontender. No JVD. HEART: Regular rate and rhythm LUNGS: Clear to auscultation bilaterally without wheezes, rales or rhonchi. No retractions or accessory muscle use. ABDOMEN: Positive bowel sounds x 4. Normal tympanic percussion. Soft, minimally tender right side of abdomen, peritoneal dialysis in the left lower quadrant, without masses or organomegaly. Ding sign negative. No guarding or rebound tenderness. No CVA tenderness MUSCULOSKELETAL: No muscle atrophy, erythema, noted. NEURO: Patient was alert and oriented to person place and time. Normal sensation to light and sharp touch. No focal neurological deficits. Medical Decision & Procedures Laboratory Results 12/31/17 22:29 Red Blood Count 1.73, Mean Corpuscular Volume 96.5, Mean Corpuscular Hemoglobin 30.6, Mean Corpuscular Hemoglobin Concent 31.7, Mean Platelet Volume 10.2, Neutrophils (%) (Auto) 61.1, Lymphocytes (%) (Auto) 26.6, Monocytes (%) (Auto) 6.9, Eosinophils (%) (Auto) 1.2, Basophils (%) (Auto) 0.3, Neutrophils # (Auto) 5.94, Lymphocytes # (Auto) 2.59, Monocytes # (Auto) 0.67, Eosinophils # (Auto) 0.12, Basophils # (Auto) 0.03 12/31/17 22:29 Test 12/31/17 22:29 12/31/17 22:38 12/31/17 22:50 White Blood Count 9.73 K/uL (4.8-10.8) Red Blood Count 1.73 M/uL (4.7-6.1) Hemoglobin 5.3 g/dL (14.0-18.0) Hematocrit 16.7 % (42-52) Mean Corpuscular Volume 96.5 fL (80-100) Mean Corpuscular Hemoglobin 30.6 pg (25-34) Mean Corpuscular Hemoglobin Concent 31.7 g/dl (32-36) Platelet Count 296 K/uL (130-400) Mean Platelet Volume 10.2 fL (7.4-10.4) Neutrophils (%) (Auto) 61.1 % Lymphocytes (%) (Auto) 26.6 % Monocytes (%) (Auto) 6.9 % Eosinophils (%) (Auto) 1.2 % Basophils (%) (Auto) 0.3 % Neutrophils # (Auto) 5.94 K/uL (1.4-6.5) Lymphocytes # (Auto) 2.59 K/uL (1.2-3.4) Monocytes # (Auto) 0.67 K/uL (0.11-0.59) Eosinophils # (Auto) 0.12 K/uL (0-0.5) Basophils # (Auto) 0.03 K/uL (0-0.2) RDW Standard Deviation 66.0 fL (36.4-46.3) RDW Coefficient of Variation 19.5 % (11.5-14.5) Immature Granulocyte % (Auto) 3.9 % Immature Granulocyte # (Auto) 0.38 K/uL (0.00-0.02) Nucleated RBC Absolute Count (auto) 0.09 K/uL (0-0) Nucleated Red Blood Cells % 0.9 % Anisocytosis PRESENT Prothrombin Time 10.8 SECONDS (9.0-12.0) Prothromb Time International Ratio 1.0 (0.9-1.1) Activated Partial Thromboplast Time 23.4 SECONDS (21.0-31.0) Partial Thromboplastin Ratio 0.9 Est Creatinine Clear Calc Drug Dose 6.2 ml/min Estimated GFR () 3.8 Estimated GFR (Non- 3.2 BUN/Creatinine Ratio 9.5 (10-20) Calcium Level 8.3 mg/dl (8.5-10.1) Magnesium Level 2.5 mg/dl (1.8-2.4) Total Bilirubin 0.3 mg/dl (0.2-1) Direct Bilirubin 0.2 mg/dl (0-0.2) Aspartate Amino Transf (AST/SGOT) 29 U/L (15-37) Alanine Aminotransferase (ALT/SGPT) 18 U/L (12-78) Alkaline Phosphatase 65 U/L (45-117) Total Creatine Kinase 169 U/L (39-308) Troponin I 0.024 ng/ml (0-0.045) Total Protein 5.9 gm/dl (6.4-8.2) Albumin 2.7 gm/dl (3.4-5.0) Thyroid Stimulating Hormone (TSH) 2.870 uIu/ml (0.300-4.500) Bedside Troponin I < 0.030 ng/ml (0-0.045) Bedside Hemoglobin 5.1 g/dl (14.0-18.0) Bedside Hematocrit 15 % (42-52) Bedside Sodium 132 mEq/L (135-144) Bedside Potassium 5.8 mEq/L (3.3-5.0) Bedside Chloride 96 mEq/L (101-112) Bedside Total CO2 21 mEq/l (24-31) Anion Gap 21.0 mmol/L (16-25) Bedside Blood Urea Nitrogen 136 mg/dl (7-18) Bedside Creatinine 14.6 mg/dl (0.6-1.3) Bedside Glucose (other) 72 mg/dl (70-99) Bedside Ionized Calcium (Marilin) 1.03 mmol/l (1.12-1.32) Medications Administered Medications (Trade) Dose Ordered Sig/Aleksandra Route Start Time Stop Time Status Last Admin Dose Admin Prochlorperazine Edisylate (Compazine Inj) 10 mg NOW STAT IV 12/31/17 22:18 12/31/17 22:21 DC 12/31/17 23:08 10 MG Insulin Human Regular (novoLIN-R U-100 PER UNIT) 10 units NOW STAT IV 01/01/18 00:45 01/01/18 00:47 DC 01/01/18 00:58 10 UNITS Dextrose (Dextrose 50% 50ML Syringe) 50 ml NOW ONCE IV 01/01/18 00:45 01/01/18 00:47 DC 01/01/18 00:59 50 ML ED Course Prior records/ancillary studies reviewed and summarized above. Nursing notes reviewed. Additional history obtained from family The patient's history was concerning for fatigue, occasional nausea and vomiting abdominal discomfort. Differential diagnosis: Etiologies such as anemia, metabolic, infection, hypo/hyperglycemia, electrolyte abnormalities, cardiac sources, intracerebral event, toxicologic, neurologic, as well as others were entertained. Physical examination: As above. ER treatment provided: IV Lock Compazine, insulin, glucose, patient was typed and crossed for 3 units and in the past is gotten leukocyte reduced Patient refused the calcium gluconate for hyperkalemia as he states this blocks of his arteries. On reassessment the patient felt better. Diagnostics interpretation by me: ECG: Normal sinus, normal intervals, slight peaking of T waves in V4, rate of 93. Impression normal sinus rhythm with possible peaking of the T waves in V3/ V4 interpreted by myself and compared to prior EKG The labs revealed i-STAT shows severe anemia of 5 and 15. Patient was typed and crossmatched. Hyperkalemia. Patient refused calcium and was given dextrose and insulin. Negative troponin Imaging studies: Chest x-ray no acute consolidation, pneumothorax or free of my interpretation and per radiology Abdominal pelvis CT negative for acute findings per stat radiology Consultation: A consultation was placed with the hospitalist, Dr Kolb. The case was discussed and diagnostics were reviewed. The patient was evaluated in the ER for further treatment. Nephrology, Dr. Ramírez, was also consulted and evaluated the patient. Exam and history seem consistent with severe anemia and hyperkalemia. Patient was consented and typed and crossmatched for blood. He agrees to treatment plan of transfusion at admission. Nephrology was consulted for dialysis. Patient refused calcium and was given dextrose and insulin. Patient will be evaluated by medicine. Patient is agreeable to treatment plan of admission. CT head no acute findings. By the evaluation outlined above emergent etiologies such as infection, intracerebral event, toxologic, neurologic, abnormalities blood glucose, as well as others were deemed relatively unlikely. The pt informed about the findings as listed above. All questions were answered and pleased with the treatment. Case reviewed with my attending The chart was completed utilizing [employer] Speech voice recognition software. Grammatical errors, random word insertions, pronoun errors, and incomplete sentences are an occassional consequence of this system due to software limitations, ambient noise, and hardware issues. Any formal questions or concerns about the content, text, or information contained within the body of this dictation should be directly addressed to the physician personalized living assistant for clarification. Medical Decision As above Medication Reconcilliation Current Medication List: was personally reviewed by me Blood Pressure Screening Patient's blood pressure: Normal blood pressure Impression Primary Impression: Anemia Additional Impression: Hyperkalemia Departure Information Dispostion Still a Patient Condition FAIR Referrals Flakito Martinez M.D. (PCP) Forms HOME CARE DOCUMENTATION FORM, IMPORTANT VISIT INFORMATION Patient Instructions My [facility] Problem Qualifiers Primary Impression: Anemia Anemia type: unspecified type Qualified Codes: D64.9 - Anemia, unspecified
--- NOTE | 2018-01-01 06:47 | DIAGNOSTIC IMAGING REPORT ---
CT SCAN OF THE ABDOMEN AND PELVIS WITHOUT IV CONTRAST CLINICAL HISTORY: Generalized abdominal pain. Diarrhea and weakness. COMPARISON STUDY: Abdominal CT dated 09/17/2017 and 11/18/2016. TECHNIQUE: CT scan of the abdomen and pelvis is performed from the lung bases to the proximal femora. Images are reviewed in the axial, sagittal, and coronal planes. IV contrast was not administered for this examination as per the referring clinician. Note that the examination was performed in suboptimal fashion without IV contrast. Oral contrast was utilized. A dose lowering technique was utilized adhering to the principles of ALARA. CT DOSE: 713.35 mGy.cm FINDINGS: Lung bases: The patient is status post midline sternotomy and cardiac valve surgery. The heart is enlarged and there is trace pericardial effusion. The coronary arteries are densely calcified. There is diminished attenuation of the cardiac blood pool as compared to the myocardium suggesting anemia. A 2.5 cm opacity at the left lung base is typical appearance for round atelectasis. No airspace consolidation is seen typical for pneumonia and there is no pleural effusion. A tiny hiatal hernia is identified. Liver: The unenhanced liver is normal in size, contour, and attenuation. There is no intrahepatic biliary ductal dilatation. Gallbladder: Unremarkable. Spleen: Normal in size and attenuation. Pancreas: The unenhanced pancreas is mildly atrophic and grossly unremarkable. Adrenal glands: There is nodular thickening of the adrenal glands, similar to previous. Kidneys: The unenhanced kidneys are atrophic and without hydronephrosis. There are numerous bilateral nonobstructing renal calculi. The largest is in the left renal pelvis and measures up to 1.5 cm. There are numerous bilateral renal cysts which measure up to 2.2 cm. A 1.3 cm complex/hemorrhagic cyst is seen arising from the anterior interpolar right kidney on image #[id number]. Abdominal vasculature: The abdominal aorta is normal in course and caliber noting advanced atherosclerotic calcification. Bowel: The small bowel and colon are normal in course and caliber. The appendix is well-visualized and normal. Peritoneum: An intraperitoneal catheter is coiled in the right lower quadrant from a central pelvic approach. There are numerous tiny foci of intraperitoneal free air. There is trace perihepatic free fluid. Trace free fluid is also seen in the pelvis. Lymphadenopathy: None. Pelvic viscera: The prostate gland is mildly enlarged and heterogeneous, measuring 4.8 cm in transverse diameter. The bladder is decompressed and not well evaluated. Postoperative changes noted in the left groin. Skeletal structures: The skeletal structures are osteopenic. Scattered bone islands are noted in the pelvis. No lytic or blastic lesions are seen. IMPRESSION: 1. Suboptimal examination without IV contrast. 2. There are no acute infectious or inflammatory findings clearly identified in the abdomen or pelvis. 3. There is trace perihepatic free fluid as well as trace free fluid in the pelvis. Numerous tiny foci of intraperitoneal free air are also identified and nonspecific in the setting of an indwelling peritoneal catheter. Clinical correlation will be required. 4. There is no bowel obstruction. 5. There are numerous bilateral nonobstructing renal calculi. No ureteral stone is seen. 6. A 2.5 cm density at the left lung base is typical in appearance for round atelectasis and unchanged from 09/17/2017. 7. Additional findings as above. Electronically signed by: Maurizio Dumas M.D. 01/01/2018 6:46 AM Dictated Date/Time: 01/01/2018 6:35 AM
[2018-01-01] MEDS: INSULIN ASPART 100 UNITS/ML 3 ML PEN SC SCH ×4 (07:00→19:59)
[2018-01-01] MEDS: AMIODARONE 200 MG TAB PO SCH (10:30)
[2018-01-01] MEDS: TIOTROPIUM BROMIDE 5 PUFF/90 MCG INH INH SCH (10:30)
[2018-01-01] MEDS: SODIUM BICARBONATE 650 MG TAB PO SCH (10:30)
[2018-01-01] MEDS: AMLODIPINE BESYLATE 5 MG TAB PO SCH (10:30)
[2018-01-01 12:05] LABS: HEMATOCRIT 26.7 % (42-52); MEAN CELL VOLUME 91.8 fL (80-100); MEAN CORPUSCULAR HEMOGLOBIN 30.9 pg (25-34); MEAN CORPUSCULAR HGB CONC 33.7 g/dl (32-36); MEAN PLATELET VOLUME 10.3 fL (7.4-10.4); NUCLEATED RED BLOOD CELL ABS 0.09 K/uL (0-0); PLATELET COUNT 290 K/uL (130-400); RED CELL DISTRIBUTION WIDTH CV 17.4 % (11.5-14.5); RED CELL DISTRIBUTION WIDTH SD 54.6 fL (36.4-46.3); WHITE BLOOD COUNT 7.68 K/uL (4.8-10.8)
--- NOTE | 2018-01-01 12:20 | Dialysis Progress Note ---
Peritoneal Dialysis Note Date of Service Jan 01, 2018. Chief Complaint ESRD on NCCPD therapy Subjective Mr. Grullon was seen & examined this morning to assess his response to PD therapy. He reports that he tolerated NCCPD last night without complication. Follow up laboratory studies have just been drawn. He denies dyspnea, angina, palpitations or overt blood loss. Review of Systems Constitutional: No fever Cardiovascular: No chest pain, No palpitations Respiratory: No dyspnea at rest Abdomen: No pain, No nausea, No vomiting Extremities: No leg edema A complete review of systems was performed. Pertinent positives are noted above. All other systems are negative. Vital Signs Last 8 Hrs Date Time Temp Pulse Resp B/P (MAP) Pulse Ox O2 Delivery O2 Flow Rate FiO2 01/01/18 12:00 Room Air 01/01/18 11:59 36.5 94 16 121/67 (85) 98 Room Air 01/01/18 08:50 36.9 89 16 138/79 94 01/01/18 08:20 36.9 91 16 160/89 93 01/01/18 08:00 97 Room Air 01/01/18 07:50 36.8 86 16 137/78 93 01/01/18 07:45 36.6 89 16 136/79 (98) 98 01/01/18 07:20 36.8 89 18 175/83 94 01/01/18 06:50 36.9 89 18 136/79 94 01/01/18 06:20 36.8 97 18 145/74 98 01/01/18 05:50 36.5 89 18 122/72 95 01/01/18 05:36 36.5 84 18 136/74 91 01/01/18 05:26 93 18 133/81 96 133.0 01/01/18 05:02 149/78 01/01/18 04:35 92 18 161/90 96 I & O 24-Hour Column 01/02/18 08:00 Intake Total 310 ml Balance 310 ml Last Recorded Weight Weight (Kilograms): 95.900 Physical Exam General Appearance: no apparent distress Head: normocephalic, atraumatic Eyes: PERRL, EOMI Neck: no adenopathy Respiratory/Chest: lungs clear Cardiovascular: regular rate, rhythm Abdomen/GI: normal bowel sounds, non tender, soft, + pertinent finding (PD exit site clean and dry without erythema or drainage) Extremities/Musculoskelatal: no pedal edema Neurologic/Psych: alert, oriented x 3 Family History Negative for CKD / ESRD Social History Drug Use: none Marital Status: Housing Status: lives with family, lives with significant other 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 Laboratory Results Past 24 Hours 12/31/17 22:29 Red Blood Count 1.73, Mean Corpuscular Volume 96.5, Mean Corpuscular Hemoglobin 30.6, Mean Corpuscular Hemoglobin Concent 31.7, Mean Platelet Volume 10.2, Neutrophils (%) (Auto) 61.1, Lymphocytes (%) (Auto) 26.6, Monocytes (%) (Auto) 6.9, Eosinophils (%) (Auto) 1.2, Basophils (%) (Auto) 0.3, Neutrophils # (Auto) 5.94, Lymphocytes # (Auto) 2.59, Monocytes # (Auto) 0.67, Eosinophils # (Auto) 0.12, Basophils # (Auto) 0.03 01/01/18 11:45 12/31/17 22:29 Test 12/31/17 22:29 12/31/17 22:38 12/31/17 22:50 01/01/18 06:34 White Blood Count 9.73 K/uL (4.8-10.8) Red Blood Count 1.73 M/uL (4.7-6.1) Hemoglobin 5.3 g/dL (14.0-18.0) Hematocrit 16.7 % (42-52) Mean Corpuscular Volume 96.5 fL (80-100) Mean Corpuscular Hemoglobin 30.6 pg (25-34) Mean Corpuscular Hemoglobin Concent 31.7 g/dl (32-36) Platelet Count 296 K/uL (130-400) Mean Platelet Volume 10.2 fL (7.4-10.4) Neutrophils (%) (Auto) 61.1 % Lymphocytes (%) (Auto) 26.6 % Monocytes (%) (Auto) 6.9 % Eosinophils (%) (Auto) 1.2 % Basophils (%) (Auto) 0.3 % Neutrophils # (Auto) 5.94 K/uL (1.4-6.5) Lymphocytes # (Auto) 2.59 K/uL (1.2-3.4) Monocytes # (Auto) 0.67 K/uL (0.11-0.59) Eosinophils # (Auto) 0.12 K/uL (0-0.5) Basophils # (Auto) 0.03 K/uL (0-0.2) RDW Standard Deviation 66.0 fL (36.4-46.3) RDW Coefficient of Variation 19.5 % (11.5-14.5) Immature Granulocyte % (Auto) 3.9 % Immature Granulocyte # (Auto) 0.38 K/uL (0.00-0.02) Nucleated RBC Absolute Count (auto) 0.09 K/uL (0-0) Nucleated Red Blood Cells % 0.9 % Anisocytosis PRESENT Prothrombin Time 10.8 SECONDS (9.0-12.0) Prothromb Time International Ratio 1.0 (0.9-1.1) Activated Partial Thromboplast Time 23.4 SECONDS (21.0-31.0) Partial Thromboplastin Ratio 0.9 Anion Gap 19.0 mmol/L (3-11) 21.0 mmol/L (16-25) Est Creatinine Clear Calc Drug Dose 6.2 ml/min Estimated GFR () 3.8 Estimated GFR (Non- 3.2 BUN/Creatinine Ratio 9.5 (10-20) Calcium Level 8.3 mg/dl (8.5-10.1) Magnesium Level 2.5 mg/dl (1.8-2.4) Total Bilirubin 0.3 mg/dl (0.2-1) Direct Bilirubin 0.2 mg/dl (0-0.2) Aspartate Amino Transf (AST/SGOT) 29 U/L (15-37) Alanine Aminotransferase (ALT/SGPT) 18 U/L (12-78) Alkaline Phosphatase 65 U/L (45-117) Total Creatine Kinase 169 U/L (39-308) Troponin I 0.024 ng/ml (0-0.045) Total Protein 5.9 gm/dl (6.4-8.2) Albumin 2.7 gm/dl (3.4-5.0) Thyroid Stimulating Hormone (TSH) 2.870 uIu/ml (0.300-4.500) Bedside Troponin I < 0.030 ng/ml (0-0.045) Bedside Hemoglobin 5.1 g/dl (14.0-18.0) Bedside Hematocrit 15 % (42-52) Bedside Sodium 132 mEq/L (135-144) Bedside Potassium 5.8 mEq/L (3.3-5.0) Bedside Chloride 96 mEq/L (101-112) Bedside Total CO2 21 mEq/l (24-31) Bedside Blood Urea Nitrogen 136 mg/dl (7-18) Bedside Creatinine 14.6 mg/dl (0.6-1.3) Bedside Glucose (other) 72 mg/dl (70-99) Bedside Ionized Calcium (Marilin) 1.03 mmol/l (1.12-1.32) Hepatitis B Surface Antigen NEG (NEG) Hepatitis B Surface Antibody NEG Test 01/01/18 06:52 01/01/18 11:11 01/01/18 11:45 Bedside Glucose 100 mg/dl (70-99) 117 mg/dl (70-99) Red Blood Count 2.91 M/uL (4.7-6.1) Mean Corpuscular Volume 91.8 fL (80-100) Mean Corpuscular Hemoglobin 30.9 pg (25-34) Mean Corpuscular Hemoglobin Concent 33.7 g/dl (32-36) RDW Standard Deviation 54.6 fL (36.4-46.3) RDW Coefficient of Variation 17.4 % (11.5-14.5) Mean Platelet Volume 10.3 fL (7.4-10.4) Nucleated RBC Absolute Count (auto) 0.09 K/uL (0-0) Nucleated Red Blood Cells % 1.2 % Allergies Coded Allergies: No Known Allergies (Unverified , 12/31/17) Medications Current Inpatient Medications Medications (Trade) Dose Ordered Sig/Aleksandra Route Start Time Stop Time Status Last Admin Dose Admin Alprazolam (Xanax Tab) 1 mg HS PO 01/01/18 21:00 01/31/18 20:59 Amiodarone HCl (Cordarone Tab) 200 mg QPM PO 01/01/18 21:00 01/31/18 20:59 01/01/18 10:30 200 MG Amlodipine Besylate (Norvasc Tab) 5 mg DAILY PO 01/01/18 09:00 01/31/18 08:59 01/01/18 10:30 5 MG Calcium Carbonate (Tums Chew Tab) 500 mg DAILY PRN PO 01/01/18 00:15 01/31/18 00:14 Carvedilol (Coreg Tab) 12.5 mg HS PRN PO 01/01/18 00:15 01/31/18 00:14 Fluticasone Propionate (Flonase Nasal [place]) 2 sprays DAILY PRN RAFAEL 01/01/18 00:15 01/31/18 00:14 Hydralazine HCl (Apresoline Tab) 100 mg DAILY PRN PO 01/01/18 00:15 01/31/18 00:14 Sodium Bicarbonate (Sodium Bicarbonate Tab) 1,300 mg DAILY PO 01/01/18 09:00 01/31/18 08:59 01/01/18 10:30 1,300 MG Tiotropium [place] (Spiriva Handihaler Inhaler) 1 puff DAILY INH 01/01/18 09:00 01/31/18 08:59 01/01/18 10:30 1 PUFF Miscellaneous Information (Order Awaiting Action) 1 ea QAM N/A 01/01/18 09:00 01/31/18 08:59 Acetaminophen (Tylenol Tab) 650 mg Q4H PRN PO 01/01/18 01:00 01/31/18 00:59 Ondansetron HCl (Zofran Inj) 4 mg Q6H PRN IV 01/01/18 01:00 01/31/18 00:59 Morphine Sulfate (MoRPHine SULFATE INJ) 2 mg Q30M PRN IV 01/01/18 01:00 01/15/18 00:59 Insulin Aspart (novoLOG ASPART) SLIDING SCALE G... ACHS SC 01/01/18 07:00 01/31/18 06:59 Glucose (Glucose 40% Gel) 15-30 GRAMS 15 GRAMS... UD PRN PO 01/01/18 02:45 01/31/18 02:44 Glucose (Glucose Chew Tab) 4-8 Tablets 4 Tabl... UD PRN PO 01/01/18 02:45 01/31/18 02:44 Dextrose (Dextrose 50% 50ML Syringe) 25-50ML OF 50% DW IV FOR... UD PRN IV 01/01/18 02:45 01/31/18 02:44 Glucagon (Glucagon Inj) 1 mg UD PRN SQ 01/01/18 02:45 01/31/18 02:44 Miscellaneous (Iv Fluids Completed) 1 ea PRN PRN N/A 01/01/18 04:30 01/01/19 04:29 Cinacalcet (Sensipar) 30 mg QPM PO 01/01/18 21:00 01/31/18 07:59 Ferric Citrate (Auryxia) 420 mg TID PO 01/01/18 14:00 01/31/18 07:59 Impression (1) Anemia (2) ESRD (end stage renal disease) (3) History of mitral valve replacement with bioprosthetic valve (4) CAD (coronary artery disease) Mr. Grullon is being admitted for evaluation of anemia and hyperkalemia in the setting of ESRD. His Hgb has dropped ~ 4 g in 2 weeks. Clinically suspect GI blood loss. He denies overt blood loss but stool is black due to use of Pepto- Bismol and Auryxia. Iron studies at home dialysis unit 12/21 revealed iron saturation 32% w/ ferritin 689. Patient's last endoscopy procedure was in . Recommendations END STAGE RENAL DISEASE: -- NCCPD therapy completed without complication. Awaiting follow up laboratory studies -- Orders entered into EMR for NCCPD tonight. undraped artist model notified HYPERKALEMIA: -- Awaiting results of follow up laboratory studies ANEMIA: -- Patient has been transfused 3 U PRBC this admission. Hgb has improved from 5.1 to 9.0 -- Check FOBT -- Paient has had hematochezia and required blood transfusions 08/21, 09/22 x 2 and now 12/21. Recommend consultation w/ Gastroenterology. Consider starting PPI therapy. 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 Resume prior to discharge.
[2018-01-01 12:24] LABS: CALCIUM 8.7 mg/dl (8.5-10.1); CREATININE 13.4 mg/dl (0.60-1.40)
[2018-01-01 12:43] LABS: POTASSIUM 4.6 mmol/L (3.5-5.1)
[2018-01-01] MEDS: FERRIC CITRATE 210 MG PO SCH ×2 (17:34→19:42)
[2018-01-01] MEDS: CINACALCET 30 MG PO SCH (19:46)
[2018-01-01] MEDS: ALPRAZOLAM 0.5 MG TAB PO SCH (20:03)
--- NOTE | 2018-01-01 20:52 | Hospitalist Progress Note ---
Hospitalist Progress Note Date of Service Jan 01, 2018. Subjective Pt evaluation today including: conversation w/ patient, conversation w/ art consultant ([employer]) Patient reports recent calcified burst artery was removed from his right index finger. He is going on and on about his long history of mysterious painful swollen nodules that are not in his joints. As far as his GI symptoms, he is reporting current nausea which he does not usually have. He is also reporting lower abdominal cramping and has been having some diarrhea today. His stool is always black due to his phosphate binder; he reports he took Pepto-Bismol one day recently. Feeling better now that he has been transfused with PRBCs. He is willing to have endoscopies if needed this admission. He has not had any gross bleeding that he can tell. He did have one episode of emesis last week it was nonbloody. Telemetry with normal sinus rhythm, PACs and PVCs, rates in the 90s All Other Systems: Reviewed and Negative Objective Vital Signs Date Time Temp Pulse Resp B/P (MAP) Pulse Ox O2 Delivery O2 Flow Rate FiO2 01/01/18 19:15 36.3 98 18 105/71 (82) 100 Room Air 01/01/18 18:15 36.6 122/85 (97) 01/01/18 16:28 36.6 97 18 122/85 (97) 01/01/18 16:00 Room Air 01/01/18 15:22 36.5 71 20 133/79 (97) 100 Room Air 01/01/18 12:00 Room Air 01/01/18 11:59 36.5 94 16 121/67 (85) 98 Room Air 01/01/18 08:50 36.9 89 16 138/79 94 01/01/18 08:20 36.9 91 16 160/89 93 01/01/18 08:00 97 Room Air 01/01/18 07:50 36.8 86 16 137/78 93 01/01/18 07:45 36.6 89 16 136/79 (98) 98 01/01/18 07:20 36.8 89 18 175/83 94 01/01/18 06:50 36.9 89 18 136/79 94 01/01/18 06:20 36.8 97 18 145/74 98 01/01/18 05:50 36.5 89 18 122/72 95 01/01/18 05:36 36.5 84 18 136/74 91 01/01/18 05:26 93 18 133/81 96 133.0 01/01/18 05:02 149/78 01/01/18 04:35 92 18 161/90 96 01/01/18 04:06 36.7 01/01/18 04:05 93 18 145/70 96 01/01/18 04:00 97 Room Air 01/01/18 03:35 92 18 152/67 97 01/01/18 03:21 36.8 01/01/18 03:20 92 18 164/73 92 01/01/18 03:05 36.8 01/01/18 03:04 36.4 90 18 149/70 99 01/01/18 02:45 92 18 135/80 99 01/01/18 01:50 103 18 131/95 100 01/01/18 01:50 36.9 01/01/18 01:46 36.9 100 14 138/72 92 Room Air 01/01/18 01:45 36.9 102 138/72 (94) 01/01/18 01:27 37.0 101 18 152/73 92 01/01/18 00:49 36.9 101 18 135/59 99 01/01/18 00:23 37.0 97 16 136/51 98 01/01/18 00:08 37.1 97 18 140/77 97 12/31/17 23:21 99 Room Air 12/31/17 23:20 99 Room Air 12/31/17 23:16 96 20 118/67 99 Room Air 98 108/58 99 102/64 12/31/17 23:00 90 12/31/17 22:08 36.6 96 18 129/75 97 Room Air Physical Exam General Appearance: WD/WN, no apparent distress Eyes: normal inspection, sclerae normal ENT: hearing grossly normal Neck: trachea midline Respiratory/Chest: lungs clear, normal breath sounds, no respiratory distress, no accessory muscle use Cardiovascular: regular rate, rhythm, no edema, no murmur Abdomen: normal bowel sounds, non tender, soft, no organomegaly, + pertinent finding (Peritoneal catheter in place) Extremities: no pedal edema, no calf tenderness Neurologic/Psychiatric: alert, normal mood/affect, oriented x 3 Skin: normal color, warm/dry, no rash Laboratory Results Last 24 Hours Test 12/31/17 22:29 12/31/17 22:38 12/31/17 22:50 01/01/18 06:34 White Blood Count 9.73 K/uL Red Blood Count 1.73 M/uL Hemoglobin 5.3 g/dL Hematocrit 16.7 % Mean Corpuscular Volume 96.5 fL Mean Corpuscular Hemoglobin 30.6 pg Mean Corpuscular Hemoglobin Concent 31.7 g/dl Platelet Count 296 K/uL Mean Platelet Volume 10.2 fL Neutrophils (%) (Auto) 61.1 % Lymphocytes (%) (Auto) 26.6 % Monocytes (%) (Auto) 6.9 % Eosinophils (%) (Auto) 1.2 % Basophils (%) (Auto) 0.3 % Neutrophils # (Auto) 5.94 K/uL Lymphocytes # (Auto) 2.59 K/uL Monocytes # (Auto) 0.67 K/uL Eosinophils # (Auto) 0.12 K/uL Basophils # (Auto) 0.03 K/uL RDW Standard Deviation 66.0 fL RDW Coefficient of Variation 19.5 % Immature Granulocyte % (Auto) 3.9 % Immature Granulocyte # (Auto) 0.38 K/uL Nucleated RBC Absolute Count (auto) 0.09 K/uL Nucleated Red Blood Cells % 0.9 % Anisocytosis PRESENT Prothrombin Time 10.8 SECONDS Prothromb Time International Ratio 1.0 Activated Partial Thromboplast Time 23.4 SECONDS Partial Thromboplastin Ratio 0.9 Sodium Level 135 mmol/L Potassium Level 6.0 mmol/L Chloride Level 95 mmol/L Carbon Dioxide Level 20 mmol/L Anion Gap 19.0 mmol/L 21.0 mmol/L Blood Urea Nitrogen 136 mg/dl Creatinine 14.20 mg/dl Est Creatinine Clear Calc Drug Dose 6.2 ml/min Estimated GFR () 3.8 Estimated GFR (Non- 3.2 BUN/Creatinine Ratio 9.5 Random Glucose 76 mg/dl Calcium Level 8.3 mg/dl Magnesium Level 2.5 mg/dl Total Bilirubin 0.3 mg/dl Direct Bilirubin 0.2 mg/dl Aspartate Amino Transf (AST/SGOT) 29 U/L Alanine Aminotransferase (ALT/SGPT) 18 U/L Alkaline Phosphatase 65 U/L Total Creatine Kinase 169 U/L Troponin I 0.024 ng/ml Total Protein 5.9 gm/dl Albumin 2.7 gm/dl Thyroid Stimulating Hormone (TSH) 2.870 uIu/ml Bedside Troponin I < 0.030 ng/ml Bedside Hemoglobin 5.1 g/dl Bedside Hematocrit 15 % Bedside Sodium 132 mEq/L Bedside Potassium 5.8 mEq/L Bedside Chloride 96 mEq/L Bedside Total CO2 21 mEq/l Bedside Blood Urea Nitrogen 136 mg/dl Bedside Creatinine 14.6 mg/dl Bedside Glucose (other) 72 mg/dl Bedside Ionized Calcium (Marilin) 1.03 mmol/l Hepatitis B Surface Antigen NEG Hepatitis B Surface Antibody NEG Test 01/01/18 06:52 01/01/18 11:11 01/01/18 11:45 01/01/18 16:19 Bedside Glucose 100 mg/dl 117 mg/dl 117 mg/dl White Blood Count 7.68 K/uL Red Blood Count 2.91 M/uL Hemoglobin 9.0 g/dL Hematocrit 26.7 % Mean Corpuscular Volume 91.8 fL Mean Corpuscular Hemoglobin 30.9 pg Mean Corpuscular Hemoglobin Concent 33.7 g/dl RDW Standard Deviation 54.6 fL RDW Coefficient of Variation 17.4 % Platelet Count 290 K/uL Mean Platelet Volume 10.3 fL Nucleated RBC Absolute Count (auto) 0.09 K/uL Nucleated Red Blood Cells % 1.2 % Sodium Level 138 mmol/L Potassium Level 4.6 mmol/L Chloride Level 98 mmol/L Carbon Dioxide Level 23 mmol/L Anion Gap 17.0 mmol/L Blood Urea Nitrogen 118 mg/dl Creatinine 13.40 mg/dl Est Creatinine Clear Calc Drug Dose 6.5 ml/min Estimated GFR () 4.0 Estimated GFR (Non- 3.5 BUN/Creatinine Ratio 8.8 Random Glucose 83 mg/dl Calcium Level 8.7 mg/dl Test 01/01/18 19:57 Bedside Glucose 136 mg/dl Assessment and Plan This patient is a 62 y/o M with a complex medical history that includes ESRD - peritoneal dialysis, DM, HTN, chronic anemia, PAF, CAD. 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 The pt has had recurrent anemia requiring transfusions. This is thought to be related to his renal disease and possibly an element of GI blood loss. He presents with exertional SOB, muscle cramps, lightheadedness and pallor. A hemoglobin was obtained and returned at 5.7. Additionally, he had not yet commenced his peritoneal dialysis this mario and an initial K was 6.0. There are peaked T waves on an EKG. He denies CP, N/V abdominal pain, fevers or grossly visible GI blood loss. 1) acute blood loss anemia on chronic anemia with suspected GI blood loss-now status post 3 units PRBCs and hemoglobin is now 9.0 Follow CBC Consult GI -Check Hemoccult stool -May need EGD and colonoscopy this admission 2) ESRD on peritoneal dialysis/hyperkalemia-now resolved after receiving peritoneal dialysis as well as D50 and insulin. He refused calcium gluconate on admission -Appreciate nephrology consultation for daily dialysis orders -Continue daily peritoneal dialysis -Follow BMP 3) HTN -stable -He is on a schedule of PRN Coreg, Hydralazine and Norvasc which have been provided. 4) DMII -is diet controlled and not on any medications at home -Continue SSI, Accu-Cheks 5) CAD status post CABG/history of mitral valve replacement for calcific vegetations-no evidence of ACS - does not tolerate antiplatelet agent or anticoagualnts due to chronic blood loss 6) PAF -taken off Coumadin after major bleeding recurrently and currently in normal sinus rhythm -cont Amiodarone Full code - SCDs Disposition-remain on telemetry, awaiting GI consultation
[2018-01-01] MEDS: PANTOprazole INJ 40 MG in SYRINGE 0 ML IV SCH (22:24)
[2018-01-01] MEDS: PROCHLORPERAZINE INJ 10 MG in SYRINGE 8 ML IV PRN (22:24)
[2018-01-02] VITALS (10 sets, daily range): BP systolic 96–152; BP diastolic 59–98; PULSE 88–98; TEMP 36.5–39.9; O2SAT 94–98
[2018-01-02 06:25] LABS: HEMATOCRIT 23.4 % (42-52); HEMOGLOBIN 7.9 g/dL (14.0-18.0); MEAN CELL VOLUME 92.1 fL (80-100); MEAN CORPUSCULAR HEMOGLOBIN 31.1 pg (25-34); MEAN CORPUSCULAR HGB CONC 33.8 g/dl (32-36); MEAN PLATELET VOLUME 9.7 fL (7.4-10.4); NUCLEATED RED BLOOD CELL ABS 0.13 K/uL (0-0); PLATELET COUNT 280 K/uL (130-400); RED CELL DISTRIBUTION WIDTH CV 18.1 % (11.5-14.5); RED CELL DISTRIBUTION WIDTH SD 56.6 fL (36.4-46.3); WHITE BLOOD COUNT 7.71 K/uL (4.8-10.8)
[2018-01-02] MEDS: INSULIN ASPART 100 UNITS/ML 3 ML PEN SC SCH ×4 (07:00→21:27)
[2018-01-02 07:13] LABS: CALCIUM 8.2 mg/dl (8.5-10.1); CREATININE 13.7 mg/dl (0.60-1.40); POTASSIUM 3.9 mmol/L (3.5-5.1)
[2018-01-02] MEDS: FERRIC CITRATE 210 MG PO SCH ×3 (08:21→21:14)
[2018-01-02] MEDS: AMLODIPINE BESYLATE 5 MG TAB PO SCH (08:22)
[2018-01-02] MEDS: SODIUM BICARBONATE 650 MG TAB PO SCH (08:24)
[2018-01-02] MEDS: PANTOprazole INJ 40 MG in SYRINGE 0 ML IV SCH ×2 (08:24→20:58)
[2018-01-02] MEDS: TIOTROPIUM BROMIDE 5 PUFF/90 MCG INH INH SCH (08:25)
[2018-01-02] MEDS ORDERED: NURSING VERBAL MED ORDER ONE (08:45)
--- NOTE | 2018-01-02 11:05 | PROGRESS NOTE ---
DATE: 01/02/2018 SUBJECTIVE: Mr. Grullon continues to complain of a variety of musculoskeletal aches and pains. However, since being transfused with 3 units of packed cells, he does feel stronger. He is not short of breath. He denies lightheadedness or dizziness. He is having one formed bowel movement a day. However, he did mention that 1-2 days prior to his admission, he did have multiple stools. Stools are always black because of iron-containing phosphate binding antacids (Auryxia) as well as the occasional use of Pepto-Bismol. He also had an episode of vomiting. Apparently, he was feeling somewhat lightheaded a day or so before coming into the hospital. As he often does of his own accord, when he feels that way, he takes 2 tablespoons of salt and rinses it down with water. That usually relieves his symptoms! After doing so, he said that he did vomit some pink material. However, he said that he had a "pink grapefruit" for breakfast so it was not sure that that represented blood. He denied passing any coffee grounds. It was after that he had multiple bowel movements. He said that those bowel movements were formed to semi-formed. The one may have been somewhat diarrheal. As an outpatient, we have been evaluating some of his musculoskeletal aches and pains. Particularly, he had some soft tissue swelling of the fourth finger of his right hand. That was explored by Dr. Meredith. A segment of the blood vessel was removed. It showed changes consistent with calciphylaxis. Also, soft tissue x-rays of his forearms were taken. They too showed changes of vascular calcifications. Mr. Grullon has not necessarily been that compliant with his use of phosphate binding antacids. His PTH has been significantly elevated and it is likely that many of his skin lesions including nodules, are related to calciphylaxis. Dramatic changes on x-ray have not been recognized. Since being transfused with 3 units of packed cells, he feels significantly better. His dialysis in the hospital to date has been uncomplicated. OBJECTIVE: GENERAL: On physical exam at the current time, Mr. Grullon appears relatively well. VITAL SIGNS: His temperature, if correct, was 39.9 degrees at 8:00 this morning. Otherwise, he has been afebrile. His blood pressure is 106/67 with a pulse of 96 and regular, respiratory rate is 17, his pulse ox is 95-97% on room air. SKIN: Shows multiple skin lesions. These are small, slightly erythematous and many have a scratched-off scab present in the center. Most are about a millimeter to 2 mm in diameter. He has several on his back. All do not have a scab formation. He has a midsternal scar from prior surgery. He has some minimal dependent rubor in his feet. There is no palpable lymphadenopathy. HEAD: Normal. EYES: Grossly normal. The ocular fundi were not examined. EARS, NOSE, MOUTH AND THROAT: Unremarkable. His oral mucous membranes were moist. NECK: Supple. There is no jugular venous distention, carotid bruit or thyromegaly. CHEST: Shows generally diminished breath sounds. However, he has no wheezes, rales or rhonchi. CARDIAC: Shows a regular rhythm. S1 and S2 are normal. I cannot hear any murmurs or gallops. ABDOMEN: Shows a peritoneal catheter exiting in the lower abdomen on the right side. The exit site is clean. There is no tenderness over the subcutaneous tunnel or discharge from the exit site. EXTREMITIES: Show some dependent rubor. Peripheral pulses are diminished in his feet, but palpable. He has essentially normal capillary refill involving his feet. He has no obvious joint abnormalities. There is a scar between the PIP and the DIP joint on the palmar surface of his right forefinger. NEUROLOGIC: Shows no lateralizing changes. ASSESSMENT: Mr. Grullon has a unique way of looking at many of his symptoms or complaints. He often speaks of his problems in terms of diagnoses as opposed to symptoms. He tends to treat himself with significant doses of steroids because of a variety of aches and pains. He says that the steroids are the only thing that helps. In the past, his parathyroid hormone levels have been high and his phosphate levels have been dramatically elevated as well despite his insistence that he takes his phosphate binding antacids. RECOMMENDATIONS: Would check a stool for occult blood to see if that is the source of the relatively acute drop in his hemoglobin. Ferritins have if anything been high as has his transferrin saturations. In the past, he responded to Micera. I would not be surprised that he is having some gastrointestinal bleeding. Certainly, that is not uncommon in patients with uremia. As far as further diagnostic studies for calciphylaxis is concerned, soft tissue x-rays of his forearms and legs may be helpful, although the studies that were done as an outpatient shortly before this admission did show the changes. I think further x-rays are to be done looking at the diagnosis of calciphylaxis, they can be done as an outpatient. As surprising as it may seem the best imaging studies can be accomplished using mammography equipment. This is far more sensitive for looking at blood vessels that are calcified. No other changes, but would recheck his calcium phosphate and parathyroid hormone levels. Hopefully, Mr. Grullon will have a short hospital stay from this time forward.
[2018-01-02 11:12] LABS: CALCIUM 8.3 mg/dl (8.5-10.1)
[2018-01-02 11:25] LABS: PHOSPHORUS 8.7 mg/dl (2.5-4.9)
--- NOTE | 2018-01-02 14:10 | Gastrointestinal Consultation ---
Gastrointestinal Consultation Date of Consultation: Jan 02, 2018 Attending Physician: Indira Davis Consulting Physician: Vinay Calles Reason for Consultation: Severe anemia History of Present Illness Patient is a 62 year old male w PMHx of ESRD on PD, DM, HTN, chronic anemia, Afib, CAD, MVR due to calcific vegetations, CABG, emergent thrombectomy due to L femoral occlusion and ischemia of LLE on 08/2017 who is currently admitted for severe anemia. Has associated symptoms of exertional SOB, also light headedness, pallor, muscle cramps. Labs on arrival showed H/H of 01/18, improved to 05/31 after 3U PRBC. K was 6 on admission, now 3.9. He is on Coumadin, INR was 1. He had ingested Pepto Bismol x 1 but noticed stools been black in color. Denies any rectal bleeding. He has periumbilical abd pain but is tolerating regular consistency diet. Denies any n/v. He did note that he's been taking Prednisone 2x a month for gout/arthritis flare. Denies any NSAIDs, ASA, tobacco. His last EGD/Colonoscopy was in 12/2015 - grossly normal exam exam findings of tubular adenoma polyps and hemorrhoids during colonoscopy. Past Medical/Surgical History Medical Problems: (1) Abnormal EKG Status: Acute (2) Altered mental status Status: Acute (3) Anemia Status: Acute (4) Anemia Status: Acute (5) Anemia Status: Acute (6) Anemia Status: Acute (7) Anemia Status: Acute (8) Anemia Status: Acute (9) Anticoagulant effect Status: Acute (10) ARF (acute renal failure) Status: Acute (11) Bleeding Status: Acute (12) Chest wall pain Status: Acute (13) Coagulopathy Status: Acute (14) Dizziness Status: Acute (15) Electrocardiogram showing T wave abnormalities Status: Acute (16) Fatigue Status: Acute (17) Hyperkalemia Status: Acute (18) Pancreatitis Status: Acute (19) Pericardial effusion without cardiac tamponade Status: Acute (20) Pleural effusion, left Status: Acute (21) Rectal bleeding Status: Acute (22) Renal failure Status: Acute (23) Renal failure, chronic Status: Acute (24) Supratherapeutic INR Status: Acute (25) Upper GI bleed Status: Acute Past Medical History: See above. Past Surgical History: See above. Family History Diabetes mellitus FATHER FH: CHF (congestive heart failure) FATHER Hypertension FATHER Social History Smoking Status: Former Smoker Alcohol Use: occasionally Drug Use: none Marital Status: Housing Status: lives with significant other Occupation Status: employed Allergies Coded Allergies: No Known Allergies (Unverified , 12/31/17) Current Medications Home Meds and Scripts Medications Dose Route/Sig Max Daily Dose Days Date Category Dose Instructions Coreg (Carvedilol) 12.5 Mg Tab 12.5 Mg PO UD 12/31/17 Reported IF BP IS ABOVE 180 PT TAKES 12.5MG OF CARVEDILOL ALONG WITH HYDRALAZINE AND NORVASC Norvasc (Amlodipine Besylate) 5 Mg Tab 5 Mg PO UD 12/31/17 Reported IF BP IS BETWEEN 140-180 PT TAKES 5MG OF AMLODIPINE ALONG WITH THE 100MG OF HYDRALAZINE. Apresoline (Hydralazine Hcl) 100 Mg Tab 100 Mg PO UD 12/31/17 Reported IF BLOOD PRESSURE IS ABOVE 140 PT TAKES 100MG OF HYDRALAZINE Xanax (Alprazolam) 1 Mg Tab 1 Mg PO HS 12/31/17 Reported Auryxia (Ferric Citrate) 210 Mg Tab 420 Mg PO TID 12/31/17 Reported Mircera (Methoxy Polyethylene Glycol-Ep) Unknown Strength Jeri 1 Dose SQ UD 12/31/17 Reported LAST DOSE WAS 3 DAYS AGO Sodium Bicarbonate 650 Mg Tab 1,300 Mg PO DAILY 09/14/17 Reported Hydrocortisone (Hydrocortisone (Topical)) 1 % Oin 1 Appln EXT BID PRN 30 09/02/17 Rx Proctosol Hc (Hydrocortisone) 90 Appln/30 Gm Cr 1 Appln EXT BID PRN 7 09/02/17 Rx Tums (Calcium Carbonate) 500 Mg Chew 500 Mg PO UD PRN 08/17/17 Reported TAKE PER PACKAGE DIRECTIONS Flonase Allergy Relief (Fluticasone Propionate (Nasal)) 50 Mcg/Act Spr 2 Sprays RAFAEL DAILY PRN 08/17/17 Reported Spiriva Handihaler (Tiotropium [place]) 30 Puff/540 Mcg Aerp 1 Cap INH DAILY 08/17/17 Reported Cordarone (Amiodarone Hcl) 200 Mg Tab 200 Mg PO QPM 06/02/17 Reported Sensipar (Cinacalcet) 30 Mg Tab 30 Mg PO QPM 04/28/17 Reported Review of Systems Constitutional: No fever, No chills Respiratory: + dyspnea on exertion, No cough Cardiac: No chest pain Abdomen: + see HPI, + pain, No nausea, No vomiting Physical Exam Date Time Temp Pulse Resp B/P (MAP) Pulse Ox O2 Delivery O2 Flow Rate FiO2 01/02/18 12:00 Room Air 01/02/18 11:26 36.7 88 16 96/59 (71) 97 Room Air 01/02/18 08:12 39.9 96 17 106/67 (80) 01/02/18 08:11 36.6 93 18 110/70 (83) 95 Room Air 01/02/18 08:00 Room Air 01/02/18 04:01 97 Room Air 01/02/18 03:41 36.5 92 18 127/71 (89) 95 01/02/18 00:38 97 Room Air 01/01/18 23:54 36.8 96 18 136/75 (95) 98 Room Air 01/01/18 20:00 97 Room Air 01/01/18 19:15 36.3 98 18 105/71 (82) 100 Room Air 01/01/18 18:15 36.6 122/85 (97) 01/01/18 16:28 36.6 97 18 122/85 (97) 01/01/18 16:00 Room Air 01/01/18 15:22 36.5 71 20 133/79 (97) 100 Room Air General Appearance: WD/WN, no apparent distress Eyes: normal inspection, PERRL, EOMI Neck: supple, no JVD, trachea midline Respiratory/Chest: normal breath sounds, no respiratory distress, no accessory muscle use Cardiovascular: regular rate, rhythm, no gallop, no murmur Abdomen: normal bowel sounds, non tender, soft, + pertinent finding (PD catheter on LLQ area ) Extremities: normal inspection, no pedal edema, no calf tenderness Neurologic/Psych: alert, normal mood/affect, oriented x 3 Skin: normal color, no jaundice, no rash Laboratory Results Last 24 Hours Test 01/01/18 16:19 01/01/18 19:57 01/02/18 06:10 01/02/18 06:50 Bedside Glucose 117 mg/dl 136 mg/dl 115 mg/dl White Blood Count 7.71 K/uL Red Blood Count 2.54 M/uL Hemoglobin 7.9 g/dL Hematocrit 23.4 % Mean Corpuscular Volume 92.1 fL Mean Corpuscular Hemoglobin 31.1 pg Mean Corpuscular Hemoglobin Concent 33.8 g/dl RDW Standard Deviation 56.6 fL RDW Coefficient of Variation 18.1 % Platelet Count 280 K/uL Mean Platelet Volume 9.7 fL Nucleated RBC Absolute Count (auto) 0.13 K/uL Nucleated Red Blood Cells % 1.7 % Sodium Level 140 mmol/L Potassium Level 3.9 mmol/L Chloride Level 100 mmol/L Carbon Dioxide Level 24 mmol/L Anion Gap 16.0 mmol/L Blood Urea Nitrogen 106 mg/dl Creatinine 13.70 mg/dl Est Creatinine Clear Calc Drug Dose 6.3 ml/min Estimated GFR () 3.9 Estimated GFR (Non- 3.4 BUN/Creatinine Ratio 7.6 Random Glucose 110 mg/dl Calcium Level 8.2 mg/dl Test 01/02/18 10:38 01/02/18 11:20 Calcium Level 8.3 mg/dl Ionized Calcium 0.98 mmol/l Phosphorus Level 8.7 mg/dl Parathyroid Hormone (Intact) 654.6 pg/mL Bedside Glucose 114 mg/dl Impression Patient is a 62 year old male seen for anemia, reports of black stools. He has hx ESRD on PD, also complicated cardiac hx of MVR due to calcified vegetation, CAD s/p CABG, Afib on Coumadin, emergent L femoral embolectomy given occlusion and ischemia. He had been on Prednisone for gout/arthritis flare but denies any ASA, NSAIDs, tobacco. His last EGD/colonoscopy wa in 12/2015 w/o acute findings, does have tubular adenoma polyps and hemorrhoids. Plan - CL diet tonight - NPO after midnight for EGD eval tomorrow by Dr. Calles - Will ask Cardiology for EGD clearance given complicated past cardiac hx. - Monitor H/H and transfuse prn - Protonix 40mg BID I saw and evaluated the patient. We are consulted for evaluation dark sticky stool for several days. The patient did have a prior evaluation in 2016 for similar symptoms. No specific etiology was identified at that time. Physical examination No obvious distress Mild pallor of skin noted Impression: Patient with a history of anemia and melena. Given history I wonder about underlying upper GI source given the recent addition of prednisone. Recommendation Continue Protonix NPO at midnight may have A clear liquid diet today Upper endoscopy to be scheduled for Tuesday as patient had a full meal this morning
--- NOTE | 2018-01-02 14:30 | CARDIOLOGY CONSULTATION ---
DATE OF CONSULTATION: 01/02/2018 REFERRING PHYSICIAN: Lisbeth Olivia INDICATIONS: Preprocedural evaluation. HISTORY OF PRESENT ILLNESS: The patient is a complex 62-year-old male whose history from a cardiac standpoint is notable for a prior cardiac surgery in 08/2017 after presenting with an embolic injury to his left lower extremity with echocardiography demonstrating mitral valve mass. The patient subsequently underwent coronary bypass grafting x1 with saphenous vein graft to the posterior descending artery and bioprosthetic mitral valve replacement uneventfully. His underlying medical problems are notable for end-stage renal disease on dialysis, longstanding hypertension, recent issues with chronic atrial fibrillation, gastroesophageal reflux disease. The patient presents now with symptomatic anemia once again with the hemoglobin as low as 5.3. He anticipates a GI evaluation and as part of hospital course, has been referred for evaluation prior to colonoscopy and anesthesia. He denies any recent cardiac complaints. He notes no chest pains, tachypalpitations, dizziness or lightheadedness. He notes no syncope or near syncope. He has fatigue, which he attributes to his anemia. He notes no overt melena, hematochezia though stools are "always dark due to iron supplements." He notes exercise capacity is well above 5 mets. He has had no recent symptoms of angina, myocardial infarction or congestive heart failure. Volume status is managed via chronic dialysis. ALLERGIES: None. MEDICATIONS Prior medicine reconciliation list include Xanax 1 mg at bedtime, amiodarone 200 mg q.p.m., amlodipine 5 mg variable dose, carvedilol 12.5 variable dose, Sensipar 30 mg q.p.m., Ferric citrate 420 t.i.d., hydralazine 100 mg daily variable dosing, Mircera one dose subcutaneous and Spiriva. Patient's outpatient records reflect as patient only using amiodarone as only cardiac medication routinely. 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 PAST MEDICAL HISTORY: As outlined in HPI, also notable for history of past gout, end-stage renal disease as described on chronic peritoneal dialysis, diet-controlled diabetes mellitus, past complications of Coumadin with spontaneous hemothorax, past history of paroxysmal atrial fibrillation without recent recurrence, not on anticoagulation due to chronic anemia with rate and rhythm controlled with chronic amiodarone usage. FAMILY HISTORY: Notable for diabetes and heart failure. SOCIAL HISTORY: The patient is a nonsmoker, nondrinker per report. PHYSICAL EXAMINATION: GENERAL: The patient is an age-appropriate male. Notable marked pallor. VITAL SIGNS: Heart rate is 86 and blood pressure is 106/67. HEENT: Normocephalic and atraumatic. Nares without discharge. Throat was clear. NECK: Supple without thyromegaly, lymphadenopathy. There is no distinct jugular venous distention. LUNGS: Reveal clear air domingo. CARDIOVASCULAR: Regular. There is no S3 gallop. ABDOMEN: Soft and nontender. There is no palpable hepatosplenomegaly. There is no hepatojugular reflux. The patient's abdominal distention is secondary to underlying peritoneal dialysis. EXTREMITIES: Without edema. DATA: EKG on presentation revealed sinus rhythm, nonspecific ST segment changes of lateral flattening. QT corrected at 517. No acute ST segment abnormalities to suggest ischemia. Initial troponin is negative despite renal insufficiency. Hemoglobin on presentation was 5.3, this morning is 7.9 after transfusion. Echocardiogram last performed 09/15/2017 demonstrated preserved LV systolic function with severe left ventricular hypertrophy, EF 60% to 65% and normally functioning bioprosthesis. IMPRESSION: A 62-year-old male presents with profound anemia. Anticipated GI evaluation as course and carries a history of past mitral valve replacement and single vessel coronary bypass grafting after presenting with acute embolic phenomenon to his leg and mitral valve necrotic calcific mass identified. The patient tolerated cardiac surgery well. There have been no significant cardiac complications post-procedure. He carries a history of past paroxysmal atrial fibrillation controlled and sinus rhythm with amiodarone. He is not anticoagulation due to complications of anticoagulation and chronic anemia. RECOMMENDATIONS: The patient proceeded with GI workup as planned. No cardiac contraindications to anesthesia. The multiple underlying medical issues remain present with chronic end-stage renal disease. We will follow along.
[2018-01-02 15:01] LABS: ISTAT CREATININE 15.2 mg/dl (0.6-1.3); ISTAT SODIUM 132 mEq/L (135-144)
--- NOTE | 2018-01-02 15:30 | DIAGNOSTIC IMAGING REPORT ---
L KNEE 3 VIEWS CLINICAL HISTORY: 62 years-old Male presenting with L knee pain. TECHNIQUE: Frontal, lateral and sunrise views of the left knee were obtained. COMPARISON: None. FINDINGS: Joint spaces preserved. Minimal osteophytosis in the lateral compartment. Significant calcification is evident along the medial aspect of the medial femoral condyle, which may be along the course of the MCL. There is also significant atherosclerotic calcification. Surgical clips noted in the proximal and medial aspect of the lower leg. No acute fracture or malalignment. IMPRESSION: 1. No acute osseous injury. 2. 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 3. Significant atherosclerosis. Electronically signed by: Carter Gongora M.D. 01/02/2018 3:28 PM Dictated Date/Time: 01/02/2018 3:25 PM
--- NOTE | 2018-01-02 18:03 | Hospitalist Progress Note ---
Hospitalist Progress Note Date of Service Jan 02, 2018. Subjective Pt evaluation today including: conversation w/ patient Reports continued pain in the left medial knee, no recent trauma that he is aware of. He asked for prednisone this morning as he said it is the only thing that ever helps his joint pains. He also requested an x-ray which showed significant calcification of the blood vessels and a possible MCL injury from previous. Telemetry with normal sinus rhythm, PACs, rates in the 90s. Blood pressures have been acceptable. He reports no more nausea today, no vomiting, and one loose stool and some mild abdominal cramping, but otherwise no diarrhea. Constitutional: + fever (1 this morning) All Other Systems: Reviewed and Negative Objective Vital Signs Date Time Temp Pulse Resp B/P (MAP) Pulse Ox O2 Delivery O2 Flow Rate FiO2 01/02/18 16:00 Room Air 01/02/18 15:27 36.9 96 19 138/98 (111) 95 Room Air 01/02/18 12:00 Room Air 01/02/18 11:26 36.7 88 16 96/59 (71) 97 Room Air 01/02/18 08:12 39.9 96 17 106/67 (80) 01/02/18 08:11 36.6 93 18 110/70 (83) 95 Room Air 01/02/18 08:00 Room Air 01/02/18 04:01 97 Room Air 01/02/18 03:41 36.5 92 18 127/71 (89) 95 01/02/18 00:38 97 Room Air 01/01/18 23:54 36.8 96 18 136/75 (95) 98 Room Air 01/01/18 20:00 97 Room Air 01/01/18 19:15 36.3 98 18 105/71 (82) 100 Room Air 01/01/18 18:15 36.6 122/85 (97) Physical Exam General Appearance: WD/WN, no apparent distress Eyes: normal inspection, sclerae normal ENT: hearing grossly normal Neck: trachea midline Respiratory/Chest: lungs clear, normal breath sounds, no respiratory distress, no accessory muscle use Cardiovascular: regular rate, rhythm, no edema, + systolic murmur (The left lower sternal border) Abdomen: normal bowel sounds, non tender, soft Extremities: no calf tenderness, + pertinent finding (Positive exquisite tenderness to palpation the left medial joint line, full range of motion of the knee, no effusion, no erythema, negative valgus or varus) Neurologic/Psychiatric: alert, normal mood/affect, oriented x 3 Skin: normal color, + rash (Multiple small excoriated nodules on all extremities and back) Laboratory Results Last 24 Hours Test 01/01/18 19:57 01/02/18 06:10 01/02/18 06:50 01/02/18 10:38 Bedside Glucose 136 mg/dl 115 mg/dl White Blood Count 7.71 K/uL Red Blood Count 2.54 M/uL Hemoglobin 7.9 g/dL Hematocrit 23.4 % Mean Corpuscular Volume 92.1 fL Mean Corpuscular Hemoglobin 31.1 pg Mean Corpuscular Hemoglobin Concent 33.8 g/dl RDW Standard Deviation 56.6 fL RDW Coefficient of Variation 18.1 % Platelet Count 280 K/uL Mean Platelet Volume 9.7 fL Nucleated RBC Absolute Count (auto) 0.13 K/uL Nucleated Red Blood Cells % 1.7 % Sodium Level 140 mmol/L Potassium Level 3.9 mmol/L Chloride Level 100 mmol/L Carbon Dioxide Level 24 mmol/L Anion Gap 16.0 mmol/L Blood Urea Nitrogen 106 mg/dl Creatinine 13.70 mg/dl Est Creatinine Clear Calc Drug Dose 6.3 ml/min Estimated GFR () 3.9 Estimated GFR (Non- 3.4 BUN/Creatinine Ratio 7.6 Random Glucose 110 mg/dl Calcium Level 8.2 mg/dl 8.3 mg/dl Ionized Calcium 0.98 mmol/l Phosphorus Level 8.7 mg/dl Parathyroid Hormone (Intact) 654.6 pg/mL Test 01/02/18 11:20 01/02/18 16:22 Bedside Glucose 114 mg/dl 181 mg/dl Assessment and Plan This patient is a 62 y/o M with a complex medical history that includes ESRD - peritoneal dialysis, DM, HTN, chronic anemia, PAF, CAD. 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 The pt has had recurrent anemia requiring transfusions. This is thought to be related to his renal disease and possibly an element of GI blood loss. He presents with exertional SOB, muscle cramps, lightheadedness and pallor. A hemoglobin was obtained and returned at 5.7. Additionally, he had not yet commenced his peritoneal dialysis this mario and an initial K was 6.0. There are peaked T waves on an EKG. He denies CP, N/V abdominal pain, fevers or grossly visible GI blood loss. 1) acute blood loss anemia on chronic anemia with suspected GI blood loss-now status post 3 units PRBCs and hemoglobin is now an appropriate level as expected at 7.9. He has had some nausea and black stools. He frequently takes prednisone for joint pains that he prescribed himself at home. Possibility of gastritis or PUD -Plan for EGD tomorrow -Appreciate GI consultation -Still awaiting Hemoccult stool to be collected -Follow CBC -Continue Protonix 2) ESRD on peritoneal dialysis/hyperkalemia/secondary hyperparathyroidism/ hyperphosphatemia-now resolved after receiving peritoneal dialysis as well as D50 and insulin. He refused calcium gluconate on admission. Intact PTH is significantly elevated at 654, phosphate elevated 8.7, ionized calcium is actually low at 0.9 -Appreciate nephrology consultation for daily dialysis orders -Continue daily peritoneal dialysis -Follow BMP -Continue Sensipar and Auryxia -Continue bicarbonate tabs 3) HTN -stable -He is on a schedule of PRN Coreg, Hydralazine and Norvasc which have been provided. 4) DMII -is diet controlled and not on any medications at home -Continue SSI, Accu-Cheks 5) CAD status post CABG/history of mitral valve replacement for calcific vegetations-no evidence of ACS - does not tolerate antiplatelet agent or anticoagulants due to chronic blood loss 6) PAF -taken off Coumadin after major bleeding recurrently and currently remains in normal sinus rhythm -cont Amiodarone 7) multiple excoriated skin nodules-nephrology notes possibility of calciphylaxis. He states that he is taking his binders as prescribed. None that appear infected at this time Full code - SCDs Disposition-remain on telemetry
[2018-01-02] MEDS: CINACALCET 30 MG PO SCH (21:08)
[2018-01-02] MEDS: AMIODARONE 200 MG TAB PO SCH (21:09)
[2018-01-02] MEDS: ALPRAZOLAM 0.5 MG TAB PO SCH (21:14)
[2018-01-02] MEDS: PROCHLORPERAZINE INJ 10 MG in SYRINGE 8 ML IV PRN (22:22)
[2018-01-03] VITALS (10 sets, daily range): BP systolic 111–129; BP diastolic 53–76; PULSE 81–90; TEMP 36.5–36.9; O2SAT 92–100
[2018-01-03 06:25] LABS: BASO % 0.4 %; BASO ABS # 0.03 K/uL (0-0.2); EOS % 0.8 %; EOS ABS # 0.06 K/uL (0-0.5); HEMOGLOBIN 7.9 g/dL (14.0-18.0); IG# 0.27 K/uL (0.00-0.02); LYMPH % 25.8 %; LYMPH ABS # 1.86 K/uL (1.2-3.4); MEAN CELL VOLUME 93.8 fL (80-100); MEAN CORPUSCULAR HEMOGLOBIN 30.9 pg (25-34); MEAN CORPUSCULAR HGB CONC 32.9 g/dl (32-36); MONO % 13.8 %; MONO ABS # 0.99 K/uL (0.11-0.59); NEUT % 55.4 %; NEUT ABS # 3.99 K/uL (1.4-6.5); NUCLEATED RED BLOOD CELL ABS 0.15 K/uL (0-0); PLATELET COUNT 296 K/uL (130-400); RED CELL DISTRIBUTION WIDTH CV 18.5 % (11.5-14.5); RED CELL DISTRIBUTION WIDTH SD 57.5 fL (36.4-46.3)
[2018-01-03 07:06] LABS: CALCIUM 8.1 mg/dl (8.5-10.1); CREATININE 14.4 mg/dl (0.60-1.40)
[2018-01-03] MEDS: INSULIN ASPART 100 UNITS/ML 3 ML PEN SC SCH ×3 (07:44→16:15)
[2018-01-03] MEDS: FERRIC CITRATE 210 MG PO SCH ×2 (09:00→14:25)
[2018-01-03] MEDS: AMLODIPINE BESYLATE 5 MG TAB PO SCH (09:00)
[2018-01-03] MEDS ORDERED: EPOETIN ALFA 40,000 UNITS/ML VIAL SQ SCH (10:30)
--- NOTE | 2018-01-03 10:57 | NEPHROLOGY PROGRESS NOTE ---
DATE: 01/03/2018 SUBJECTIVE: Mr. Grullon states that he is feeling relatively well. He denies having any abdominal pain, nausea, or vomiting. He is not having any chest pain or shortness of breath. His major complaint has been pain in his left knee. X-rays of his knee were taken yesterday. They did show significant vascular calcifications around the knee as well as mild degenerative changes of the knee. Yesterday his knee pain according to him was so severe that he demanded a dose of steroids of the hospital staff. It was given to him with some relief in his symptoms. He also notes some reddish phong discoloration of his toes, particularly on the left foot, but also involving the right. He has no pain in his foot. He has noted no ulcerations. He denies symptoms of claudication. There have been no issues with regard to his peritoneal dialysis treatments. He denies having any abdominal pain. His fluid has remained clear. His peritoneal catheter exit site remains clean and he has no tenderness of the anterior abdominal wall in the area of the catheter. He has symptoms that are strongly suggestive of a recent upper GI bleed. He certainly feels better than he did at the time of admission. An EGD is scheduled for later today. OBJECTIVE: GENERAL: On physical exam when seen by me, Mr. Grullon appeared to be relatively well. He was sitting on the side of the bed, in no distress. VITAL SIGNS: He is afebrile (36.5), his blood pressure 126/74, his pulse 82 and regular, respiratory rate 16, his pulse ox 92-96% on room air. SKIN: Shows normal skin turgor. He has no obvious rash or infiltrative skin disease. He does have a number of punctate lesions, some with the top scratched off. No bleeding at the current time. He has no evidence of ecchymoses or purpura. He has evidence of dependent rubor in his toes, particularly on the left side. There is a midsternal scar from prior surgery. LYMPHATICS: Show no palpable adenopathy. HEAD: His head is normal. EYES: Grossly normal. The ocular fundi were not examined. EARS, NOSE, MOUTH, AND THROAT: Unremarkable. His oral mucous membranes are moist. NECK: His neck is supple. He has no jugular venous distention, carotid bruit, or thyromegaly. CHEST: His chest shows diminished breath sounds throughout. I hear no wheezes, rales, or rhonchi. CARDIAC EXAMINATION: Shows a regular rhythm. S1 and S2 seem normal. He has a short systolic murmur (grade 1-2) at the base radiating toward the neck. No diastolic murmurs or gallops are heard. He has no friction rubs. ABDOMEN: His abdomen shows his peritoneal catheter to exit in the lower abdomen on the right side. The exit site remains clean and there is no tenderness over the subcutaneous tunnel. He does have palpable peritoneal fluid present from his current dwelling peritoneal dialysis. There is no obvious organomegaly or mass. EXTREMITIES: Show the dependent rubor of his feet, left worse than right. Peripheral pulses are diminished in his feet, but still palpable. He has a [id number] capillary refill involving his feet. His left knee is tender medially with a small effusion present. He has a scar between the PIP and DIP joint on the palmar surface of his right forefinger. NEUROLOGIC: His neurologic exam shows no lateralizing changes or asterixis. PERTINENT LABORATORY WORK: From today shows a white count of 7200 with a normal differential. His hemoglobin is stable at 7.9 with a hematocrit of 24.0. Red cell indices are normal. The platelet count is 296,000. Clinical chemistries show a sodium of 136 mmol/L, potassium 4.0 mmol/L, chloride is 98 mmol/L, and CO2 content 26 mmol/L. His BUN is 104, creatinine 14.40. His random blood sugars over the course of the past 24 hours vary from 109-181. His serum calcium is 8.1. His most recent PTH done yesterday was 654.6. ASSESSMENT: Mr. Grullon remains stable and his hemoglobin appears to have leveled off. He is having an EGD today looking for a potential source of a possible upper gastrointestinal bleed. He did have a colonoscopy about 2 years ago according to him. That was done at [facility]. I believe the previous report showed evidence of diverticulosis and that several small polyps were removed consistent with tubular adenomas. His major complication of dialysis at the current time is a poor divalent ion metabolism. 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 RECOMMENDATIONS: EGD today. We will transfuse with another unit of packed cells. We will also give him Procrit 40,000 units subcutaneously today. If he is otherwise stable after his transfusion and EGD, I would see no problem with discharge and we can follow him up as an outpatient. I did give him an alternative of going back to hemodialysis while we treat his calciphylaxis with intravenous sodium thiosulfate. He rejects that idea. However, he seemed to accept the possibility of going on hemodialysis once a week as a supplement and prior to each of those treatments, receiving sodium thiosulfate. We will pursue that with him as an outpatient. No other immediate recommendations, although I would try to minimize his use of prednisone. He should continue with his phosphate-binding antacids and a low phosphate diet. Dialysis orders for today have been written in case he stays again tonight.
[2018-01-03] MEDS: SODIUM BICARBONATE 650 MG TAB PO SCH (11:14)
[2018-01-03] MEDS: TIOTROPIUM BROMIDE 5 PUFF/90 MCG INH INH SCH (11:16)
[2018-01-03] MEDS: PANTOprazole INJ 40 MG in SYRINGE 0 ML IV SCH (11:16)
[2018-01-03] MEDS ORDERED: PROPOFOL IV EMULSION 10 MG/ML 20 ML VIAL ONE (12:36)
[2018-01-03] MEDS ORDERED: LIDOCAINE HCL 2% 2 ML VIAL (20MG/ML) ONE (12:37)
--- NOTE | 2018-01-03 14:03 | GI REPORT ---
Patient Name: Dariel Grullon Procedure Date: 01/03/2018 1:45 PM Date of : 1955 Admit Type: Inpatient Age: 62 Gender: Male Attending MD: Vinay Calles DO Procedure: Upper GI endoscopy Providers: Vinay Calles DO Referring MD: Indira Davis Md Indications: Melena Medicines: Monitored Anesthesia Care Complications: No immediate complications. Estimated blood loss: Minimal. Estimated Blood Loss: Estimated blood loss was minimal. Procedure: Pre-Anesthesia Assessment: - Prior to the procedure, a History and Physical was performed, and patient medications, allergies and sensitivities were reviewed. The patient's tolerance of previous anesthesia was reviewed. - The risks and benefits of the procedure and the sedation options and risks were discussed with the patient. All questions were answered and informed consent was obtained. - Patient identification and proposed procedure were verified prior to the procedure by the physician, the nurse and the business writer. The procedure was verified in the procedure room. - Pre-procedure physical examination revealed no contraindications to sedation. - ASA Grade Assessment: IV - A patient with severe systemic disease that is a constant threat to life. - The anesthesia plan was to use monitored anesthesia care (MAC). - Immediately prior to administration of medications, the patient was re-assessed for adequacy to receive sedatives. - The heart rate, respiratory rate, oxygen saturations, blood pressure, adequacy of pulmonary ventilation, and response to care were monitored throughout the procedure. - The physical status of the patient was re-assessed after the procedure. After obtaining informed consent, the endoscope was passed under direct vision. Throughout the procedure, the patient's blood pressure, pulse, and oxygen saturations were monitored continuously. The Scope was introduced through the mouth, and advanced to the third part of duodenum. The upper GI endoscopy was accomplished without difficulty. The patient tolerated the procedure well. Findings: The examined esophagus was normal. The Z-line was regular and was found 42 cm from the incisors. Diffuse moderate inflammation characterized by congestion (edema), erythema and granularity was found in the entire examined stomach. Biopsies were taken with a cold forceps for histology. Estimated blood loss was minimal. One non-obstructing non-bleeding gastric ulcer of mild severity with no stigmata of bleeding was found in the prepyloric region of the stomach. The lesion was 6 mm in largest dimension. The examined duodenum was normal. Impression: - Normal esophagus. - Z-line regular, 42 cm from the incisors. - Gastritis. Biopsied. - Non-obstructing non-bleeding gastric ulcer with no stigmata of bleeding. - Normal examined duodenum. Recommendation: - [facility]. - Advance diet as tolerated today. - Use Prilosec (omeprazole) or Pantoprazole 40 mg PO daily. - Await pathology results. - Repeat upper endoscopy in 3 months for surveillance. Vinay Calles D.O. Vinay Calels, 01/03/2018 2:03:14 PM This report has been signed electronically. Note Initiated On: 01/03/2018 1:45 PM Number of Addenda: 0 I attest to the content of the Intraoperative Record and orders documented therein, exceptions below {[id number]}
--- NOTE | 2018-01-03 14:04 | Progress Note ---
Progress Note Date of Service January 03, 2018. Progress Note The patient underwent upper endoscopy this afternoon. Findings Clean based pre-pyloric ulcer diffuse gastritis Recomendations: Protonix or Omeprazole 40 mg per day repeat EGD in 3 months Avoid NSAIDS if possible (may use 81 mg aspirin if needed) These call with questions, GI to sign off
--- NOTE | 2018-01-03 14:35 | Anesthesiology Progress Note ---
Anesthesia Post Op Note Date & Time January 03, 2018 at 14:35 Vital Signs Pain Intensity: 0 Vital Signs Past 12 Hours Date Time Temp Pulse Resp B/P (MAP) Pulse Ox O2 Delivery O2 Flow Rate FiO2 01/03/18 14:24 36.5 83 20 112/53 98 01/03/18 14:15 83 20 112/53 (72) 100 Room Air 01/03/18 14:04 80 16 101/56 (71) 98 Room Air 01/03/18 13:20 36.4 81 81 141/79 (99) 99 01/03/18 12:20 36.5 81 16 114/76 98 01/03/18 12:05 36.5 83 16 122/75 98 01/03/18 12:00 Room Air 01/03/18 11:50 36.5 86 16 116/72 98 01/03/18 10:58 36.5 87 18 111/73 (86) 97 Room Air 01/03/18 09:37 36.5 82 16 126/74 (91) 01/03/18 08:00 Room Air 01/03/18 07:03 36.9 82 18 129/69 (89) 92 Room Air 01/03/18 04:00 Room Air 01/03/18 03:30 36.8 90 20 122/68 (86) 96 Room Air Notes Mental Status: alert / awake / arousable, participated in evaluation Pt Amnestic to Procedure: Yes Nausea / Vomiting: adequately controlled Pain: adequately controlled Airway Patency, RR, SpO2: stable & adequate BP & HR: stable & adequate Hydration State: stable & adequate Anesthetic Complications: no major complications apparent
[2018-01-03] MEDS ORDERED: PANT40TA PO (15:42)
--- NOTE | 2018-01-03 15:45 | Discharge Instructions ---
Discharge Instructions Date of Service January 03, 2018. Admission Reason for Admission: Anemia, Hyperkalemia Discharge Discharge Diagnosis / Problem: Acute blood loss anemia, gastric ulcer, gastritis, hyperkalemia Discharge Goals Goal(s): Improve disease control, Diagnostic testing, Therapeutic intervention Activity Recommendations Activity Limitations: resume your previous activity Shower/Bathe: no limitations Driving or Machine Use: no limitations . Instructions / Follow-Up Instructions / Follow-Up You were admitted for symptomatic anemia from GI bleeding from a gastric ulcer and gastritis. You were transfused a total of 4 units of blood. It is recommended that you avoid all nonsteroidal anti-inflammatory drugs, as well as prednisone. Please take the proton pump inhibitor, Protonix, once daily to treat your gastric ulcer and gastritis. The administrative assistant coordinator is recommending a repeat EGD in 3 months. Please continue peritoneal dialysis as per your broomcorn grader. Please follow-up with Dr. Martinez within 1 week after discharge. Current Hospital Diet Patient's current hospital diet: Renal Diet, Diabetes Type 2 Diet Discharge Diet Recommended Diet: Diabetes Type 2 Diet, Renal Diet Procedures Procedures Performed: EGD, BX Knee x-ray CT abdomen/pelvis Chest x-ray Pending Studies Studies pending at discharge: no Medical Emergencies . Who to Call and When: Medical Emergencies: If at any time you feel your situation is an emergency, please call 911 immediately. . Non-Emergent Contact Non-Emergency issues call your: Primary Care Provider Call Non-Emergent contact if: temperature is above 101, your pain is not controlled, your pain is worsening, your pain is unusual for you, your pain is concerning you, you have any medication questions . . "Provider Documentation" section prepared by Indira Davis. .
--- NOTE | 2018-01-03 15:53 | Discharge Summary ---
Discharge Summary Date of Service January 03, 2018. 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 Carvedilol (Coreg) 12.5 Mg Tab 12.5 MG PO UD, TAB IF BP IS ABOVE 180 PT TAKES 12.5MG OF CARVEDILOL ALONG WITH HYDRALAZINE AND NORVASC Cinacalcet (Sensipar) 30 Mg Tab 30 MG PO QPM, TAB Ferric Citrate (Auryxia) 210 Mg Tab 420 MG PO TID Fluticasone Propionate (Nasal) (Flonase Allergy Relief) 50 Mcg/Act Spr 2 SPRAYS RAFAEL DAILY PRN for Allergy Symptoms Hydralazine Hcl (Apresoline) 100 Mg Tab 100 MG PO UD, TAB IF BLOOD PRESSURE IS ABOVE 140 PT TAKES 100MG OF HYDRALAZINE Hydrocortisone (Proctosol Hc) 90 Appln/30 Gm Cr 1 APPLN EXT BID PRN for Hemorrhoids for 7 Days, #1 TUBE Hydrocortisone (Topical) (Hydrocortisone) 1 % Oin 1 APPLN EXT BID PRN for itching for 30 Days Methoxy Polyethylene Glycol-Ep (Mircera) Unknown Strength Jeri 1 DOSE SQ UD LAST DOSE WAS 3 DAYS AGO Sodium Bicarbonate (Sodium Bicarbonate) 650 Mg Tab 1300 MG PO DAILY Tiotropium [place] (Spiriva Handihaler) 30 Puff/540 Mcg Aerp 1 CAP INH DAILY, CAP Discontinued Medications: Calcium Carbonate (Tums) 500 Mg Chew 500 MG PO UD PRN for Indigestion TAKE PER PACKAGE DIRECTIONS Discharge Exam No further melena, only mild nausea at this time, no abdominal pain. Continues to have left medial knee pain. Discussed the importance of avoiding NSAIDs and prednisone as he noted he occasionally takes Toradol and at least once a month takes a 10 day course of prednisone that he prescribes for himself. No chest pain or shortness of breath. Telemetry with normal sinus rhythm Physical Exam General Appearance: WD/WN, no apparent distress Eyes: normal inspection, sclerae normal ENT: hearing grossly normal Neck: trachea midline Respiratory/Chest: lungs clear, normal breath sounds, no respiratory distress, no accessory muscle use Cardiovascular: regular rate, rhythm, no edema, + systolic murmur (The left lower sternal border) Abdomen: normal bowel sounds, non tender, soft Extremities: no calf tenderness, + pertinent finding (Positive exquisite tenderness to palpation the left medial joint line, full range of motion of the knee, no effusion, no erythema, negative valgus or varus) Neurologic/Psychiatric: alert, normal mood/affect, oriented x 3 Skin: normal color, + rash (Multiple small excoriated nodules on all extremities and back) Review of Systems: Constitutional: No problem reported Eyes: No problem reported ENT: No problem reported Respiratory: No problem reported Cardiovascular: No problem reported Abdomen: No problem reported Musculoskeletal: + joint pain (As per HPI) Genitourinary - Male: No problem reported Neurologic: No problem reported Psychiatric: No problem reported Endocrine: No problem reported Hematologic / Lymphatic: No problem reported Integumentary: No problem reported Hospital Course This patient is a 62 y/o M with a complex medical history that includes ESRD - peritoneal dialysis, DM, HTN, chronic anemia, PAF, CAD. 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 The pt has had recurrent anemia requiring transfusions. This is thought to be related to his renal disease and possibly an element of GI blood loss. He presents with exertional SOB, muscle cramps, lightheadedness and pallor. A hemoglobin was obtained and returned at 5.7. Additionally, he had not yet commenced his peritoneal dialysis this mario and an initial K was 6.0. There are peaked T waves on an EKG. He denies CP, N/V abdominal pain, fevers or grossly visible GI blood loss. 1) acute blood loss anemia on chronic anemia with GI blood loss/Gastric ulcer/ Gastritis-now status post 4 units PRBCs and hemoglobin is now an appropriate Hgb level as expected. He has had some nausea and black stools prior to admission. He frequently takes prednisone for joint pains that he prescribed himself at home. EGD here with gastri culcer nonbleeding and gastritis -GI recommends Protonix 40mg once daily, and repeat EGD in 3 months -Follow CBC as outpt -recommended NOT taking prednisone or NSAIDs 2) ESRD on peritoneal dialysis/hyperkalemia/secondary hyperparathyroidism/ hyperphosphatemia-now resolved after receiving peritoneal dialysis as well as D50 and insulin. He refused calcium gluconate on admission. Intact PTH is significantly elevated at 654, phosphate elevated 8.7, ionized calcium is actually low at 0.9 -Appreciate nephrology consultation for daily dialysis orders -Continue daily peritoneal dialysis after dc -Follow BMP -Continue Sensipar and Auryxia -Continue bicarbonate tabs 3) HTN -stable -He is on a schedule of PRN Coreg, Hydralazine and Norvasc which have been provided. 4) DMII -is diet controlled and not on any medications at home. In fact, patient is adamant that he does not have this diagnosis and he states that "my glucose is better than your glucose." Hemoglobin A1c from 08/2017 is 7.0% Glucose here consistently greater than 100 but less than 180 -No medications upon discharge 5) CAD status post CABG/history of mitral valve replacement for calcific vegetations-no evidence of ACS - does not tolerate antiplatelet agent or anticoagulants due to chronic blood loss 6) PAF -taken off Coumadin after major bleeding recurrently and currently remains in normal sinus rhythm -cont Amiodarone 7) multiple excoriated skin nodules-nephrology notes possibility of calciphylaxis. He states that he is taking his binders as prescribed. None that appear infected at this time -Nephro to f/u on this as outpt Stable for dc to home Total Time Spent: Greater than 30 minutes This includes examination of the patient, discharge planning, medication reconciliation, and communication with other providers. Discharge Instructions Please refer to the electronic Patient Visit Report (Discharge Instructions) for additional information. Follow-Up With PCP/nephrology within 1 week With gastroenterology for repeat EGD in 3 months Additional Copies To Flakito Martinez M.D.
== END 2018-01-03 19:15 | disposition home or self-care (01) | DRG 811 ==
LOC: C.EDB 22:07 → C.2T 01-01 01:02 → ENRESERV 01-01 01:13 → OBSVTOIN 01-01 13:04
PROVIDERS: ADMIT Internal Medicine; ATTEND Family Medicine
PROC: 0DJ08ZZ Inspection of Upper Intestinal Tract, Via Natural or Artificial Opening Endoscopic (ICD-10-PCS; principal; 2018-01-03 13:45)
DX: D62 Acute posthemorrhagic anemia (principal); N18.6 End stage renal disease; K25.4 Chronic or unspecified gastric ulcer with hemorrhage; K92.1 Melena; I12.0 Hypertensive chronic kidney disease with stage 5 chronic kidney disease or end stage renal disease; D63.1 Anemia in chronic kidney disease; E87.5 Hyperkalemia; K29.70 Gastritis, unspecified, without bleeding; E21.1 Secondary hyperparathyroidism, not elsewhere classified; I25.10 Atherosclerotic heart disease of native coronary artery without angina pectoris; E11.22 Type 2 diabetes mellitus with diabetic chronic kidney disease; M10.9 Gout, unspecified; I48.0 Paroxysmal atrial fibrillation; J44.9 Chronic obstructive pulmonary disease, unspecified; M25.562 Pain in left knee; I25.2 Old myocardial infarction; Z95.1 Presence of aortocoronary bypass graft; Z87.891 Personal history of nicotine dependence; Z99.2 Dependence on renal dialysis; Z95.2 Presence of prosthetic heart valve; Z83.3 Family history of diabetes mellitus; Z82.49 Family history of ischemic heart disease and other diseases of the circulatory system